=== PATIENT | female | born 1985 | race Two or more races ===

== ENCOUNTER 2023-10-16 19:18 | Inpatient (IN) | payer MEDICARE, MEDICAID, SELFPAY ==
[2023-10-16 20:06] VITALS: BP 123/69; PULSE 105; RESP 18; TEMP 36.2; O2SAT 97
[2023-10-16 22:12] LABS: MANUAL DIFF FLAG NO
[2023-10-16 22:13] LABS: Basophils Percent Auto 0.2 % (0-2); Eosinophils Percent Auto 0.2 % (0-4); Hematocrit 36.2 % (37.0-47.0); Hemoglobin 12.2 g/dl (12.0-16.0); Imm Gran Abs Auto 0.01 X10*3/uL (0.00-0.03); Imm Gran Pct Auto 0.2 % (0.0-0.4); Lymphocytes Percent Auto 41.5 % (20-40); Mean Corpuscular HGB Conc 33.7 g/dl (31.0-35.0); Mean Corpuscular Hemoglobin 28.1 pg (27.0-33.0); Mean Corpuscular Volume 83.4 fL (80.0-98.0); Mean Platelet Volume 9.5 fL (9.4-12.3); Monocytes Absolute Auto 0.5 X10*3/uL (0.1-1.2); Monocytes Percent Auto 9.6 % (2-11); Neutrophils Absolute Auto 2.3 x10*3/uL (2.0-8.3); Neutrophils Percent Auto 48.3 % (45-73); Platelet Count 227 X10*3/uL (160-400); Red Blood Count 4.34 X10*6/uL (4.20-5.50); White Blood Count 4.8 X10*3/uL (4.8-10.8)
[2023-10-16] MEDS: Docusate Sodium 100 MG CAPSULE PO (22:48)
[2023-10-16] MEDS: cloZAPine 25 MG TABLET 50 MG PO (22:48)
[2023-10-16] MEDS: cloZAPine 100 MG TABLET 200 MG PO (22:48)
[2023-10-16] MEDS: Calcium Carbonate 750 MG TAB.CHEW PO (22:48)
[2023-10-17 02:05] VITALS: BMI 33.1
--- NOTE | 2023-10-17 03:06 | PC.NURSE ---
Addendum entered by Janneth Buck RN 10/17/23 04:14: additional medical issues for admission note: asthma-well controlled, hypothyroidism. Original Note: ALLERGIES: prison confirms that they have a flagged allergy for patient for pork products but does take Thyroid Pork (STONE LAYER thyroid) 60 MG daily. last given by them on 10/15/23. clozaril 25 mg given daily at 1400 clozaril HS total dose 250 mg-last given by prison 10/14 and received on M3 10/15 clonazepam 1 mg is given daily at prison at 1700 daily. last given by prison on 10/14 and was given dose in [facility] ER 10/15 prior to arrival to . see completed medication reconciliation. Neurology-prison reports patient had a neurology appointment with neurologist 10/05 at [facility] unable to identify name of physician. sister-guardian, Griselda attended appointment with her and had been prescribed ''something for MS'' but unable to identify medication. reporting that medication had to be a special order. MS is a new diagnosis for patient. was hospitalized 09/18-09/23 r/o seizure d/o with final diagnosis of MS. contact at prison was Naomi. this is the first M3 admission for this 38 year old female. legal: CV. dx: schizoaffective d/o, bipolar d/o. patient has history of multiple hospitalizations including [facility]. nurse to nurse, collateral information obtained prior to admission. presnts with flat affect, depressed mood. reports ''not feeling right'' reports experiencing + ah with SI thinking. denies active plan or intent. no agitation or restlessness noted during assessment. was actively engaged with medication reconciliation including offering t/w her prison number and stating ''call them, they will know my medications because they were changed when I was in the hospital'' (referring to medical admission) patient had number memorized. no drug or alcohol use. treatment plan, safety tool initiated. skin check done on admission. does not want flu shot.
[2023-10-17 06:00] VITALS: BP 126/96; PULSE 110; RESP 16; TEMP 36.1; O2SAT 96
[2023-10-17] MEDS: Omeprazole 20 MG CAPSULE.DR PO (06:44)
--- NOTE | 2023-10-17 06:47 | PC.NURSE ---
is due for haldol dec. shot per halfway. [facility]NA came to halfway when patient was in ER. halfway requesting dec to be administered in the hospital.
[2023-10-17 07:49] LABS: Alanine Aminotransferase 14 U/L (0-31); Alkaline Phosphatase 75 U/L (39-117); Anion Gap 12 (12-20); Aspartate Amino Transferase 16 U/L (5-31); Bilirubin Total 0.3 mg/dL (0.0-1.0); Blood Urea Nitrogen 10 mg/dL (9-16); Calcium 9.2 mg/dL (8.4-10.2); Carbon Dioxide 25 mmol/L (22-29); Chloride 110 mmol/L (96-108); Cholesterol 211 mg/dL (<200); Creatinine Clr Calc Pharmacy 130.2; Estimated Glomerular Filt Rate > 60; Glucose Fasting 100 mg/dL (60-99); HDL Cholesterol 34 mg/dL (>40); LDL Cholesterol Calculated 129 mg/dL (<100); Potassium 3.9 mmol/L (3.3-5.1); Sodium 143 mmol/L (135-145); Total Protein 6.1 g/dL (6.5-8.0); Triglycerides 241 mg/dL (<150)
[2023-10-17 08:10] LABS: TSH reflex Free T4 1.84 uIU/mL (0.32-4.0)
[2023-10-17] MEDS: Thyroid,Pork 30 MG TABLET 60 MG PO (08:42)
[2023-10-17] MEDS: Multivitamin TABLET 1 TAB PO (08:42)
[2023-10-17] MEDS: Docusate Sodium 100 MG CAPSULE PO ×2 (08:42→22:19)
--- NOTE | 2023-10-17 10:31 | PC.NURSE ---
Spoke with Deysi at pt's . Deysi reports that haldol dec 100 MG IM was supposed to be administered on 10/14, but the medication was not available for [facility]NA nurse to administer. Pt was in ED on 10/15 when VNA returned. Deysi reported that last administration was not documented. She called her lead section supervisor who did not know the name of the VNA agency. Call placed to pt's sister/guardian Griselda enquiring about name/contact at [facility], awaiting call back.
--- NOTE | 2023-10-17 11:52 | P.HPPS_ITS ---
HPI Date of Service: 10/17/23 Chief Complaint: Anxiety Sources of Information: patient interviewed, chart reviewed and crisis/core team assessment reviewed HPI Subjective Notes: [place] Warning and Conditional Voluntary Narrative: Patient is a 38 year old female with hx of Schizoaffective d/o who presented to ER d/t suicidal ideation with no plan secondary to increased auditory hallucinations. Per crisis report, pt was hospitalized from September 18-September 23 secondary to seizure d/o and was eventually diagnosed with MS exacerbation. She was treated with steroids and discharged back to [facility]. During admission assessment, pt presents with flat affect, guarded and soft spoken. She is calm and cooperative. Pt reports feeling anxious and depressed ; pt stated, I came here because I'm suicidal and having voices. I dont know why I'm suicidal. Nothing happened. It started on 3pm on Wednesday. The voices are telling me to do things to kill myself. I'm trying to fight it . pt denies HI/VH/AH. She reports being medication compliant. Pt stated, I just want the voices and suicidal thoughts to go away. The whole situation is making me depressed and anxious . RN, Belen, verified pt is due for Haldol Decanoate 100mg IM; injection was due on 10/15/23, however pt was hospitalized at that time and did not receive injection. Per RN note, Spoke with on-call, Racheal, at [facility] - [phone]. Verified haldol deconate 100 MG IM [id number] was last administered on 10/01/23 and was due 10/15/23. Invega sustenna 234 MG IM Qmonth was last administered 10/04/23. Past Psychiatric History: [facility] hospitalization-2021 lives at [facility]. Therapist: [facility] Reviewed: Yes [facility] Medical History (Updated 10/17/23 @ 16:14 by Nadira Colon NP) Mild persistent asthma Multiple sclerosis HLD (hyperlipidemia) Family History: unknown Social History: lives in residential [facility] through [facility], single, sister, Griselda is legal guardian. Substance History: denies Trauma History: denies Diagnostics Vital Signs (24Hr): Vital Signs - 24 hr 10/16/23 20:06 10/17/23 06:00 Temperature 97.2 F 97.0 F Pulse Rate 105 H 110 H Respiratory Rate 18 16 Blood Pressure 123/69 126/96 H Pulse Oximetry 97 96 Oxygen Delivery Method Room Air Room Air BMI result Body Mass Index 33.1 Labs 10/16/23 22:08 10/17/23 07:11 Labs: Laboratory Results - last 48 hr 10/16/23 10/17/23 22:08 07:11 WBC 4.8 RBC 4.34 Hgb 12.2 Hct 36.2 L MCV 83.4 MCH 28.1 MCHC 33.7 RDW 13.0 Plt Count 227 MPV 9.5 Immature Gran % (Auto) 0.2 Neut % (Auto) 48.3 Lymph % (Auto) 41.[address] [place] % (Auto) 9.6 Eos % (Auto) 0.2 Baso % (Auto) 0.2 Lymph # (Auto) 2.0 [place] # (Auto) 0.5 Eos # (Auto) 0.0 Baso # (Auto) 0.0 Abs Immat Gran (auto) 0.01 Absolute Neuts (auto) 2.3 Absolute Nucleated RBC 0.000 Nucleated RBC % (auto) 0.0 Hold Purple Top SEE NOTE Sodium 143 Potassium 3.9 Chloride 110 H Carbon Dioxide 25 Anion Gap 12 BUN 10 Creatinine 0.66 Estim Creat Clear Calc 130.2 Estimated GFR > 60 Fasting Glucose 100 H Calcium 9.2 Total Bilirubin 0.3 AST 16 ALT 14 Alkaline Phosphatase 75 Total Protein 6.1 L Albumin 4.0 Triglycerides 241 H Cholesterol 211 H LDL Cholesterol, Calc 129 H HDL Cholesterol 34 L TSH 1.84 Meds/Allergies Meds Home Medications Medication Instructions Recorded Confirmed Type clonazepam 1 mg tablet 1 mg PO DAILY@1700 10/16/23 10/17/23 History clozapine 200 mg tablet 200 mg PO BEDTIME 10/16/23 10/16/23 History clozapine 25 mg tablet 25 mg PO DAILY@1400 10/16/23 10/17/23 History clozapine 50 mg tablet 50 mg PO BEDTIME 10/16/23 10/16/23 History docusate sodium 100 mg capsule 100 mg PO BID 10/16/23 10/16/23 History haloperidol decanoate 100 mg/mL 100 mg IM Q2W 10/16/23 10/16/23 History intramuscular solution ibuprofen 600 mg tablet 600 mg PO Q6H PRN pain 10/16/23 10/16/23 History multivitamin with folic acid 400 1 tab PO DAILY 10/16/23 10/16/23 History mcg tablet (Daily-Pratik (with folic acid)) paliperidone palmitate 234 mg/1.5 234 mg IM Q4W 10/16/23 10/16/23 History mL intramuscular syringe (Invega Sustenna) pantoprazole 40 mg tablet,delayed 40 mg PO DAILY 10/16/23 10/16/23 History release thyroid (pork) 60 mg tablet (FILER REPAIRER 60 mg PO DAILY 10/16/23 10/16/23 History Thyroid) albuterol sulfate 90 mcg/actuation 2 puff inhalation Q4H PRN wheezing 10/17/23 10/17/23 History aerosol inhaler loratadine 10 mg tablet 10 mg PO DAILY 10/17/23 10/17/23 History Allergies Allergies Allergy/AdvReac Type Severity Reaction Status Date / Time Pork/Porcine Containing Allergy Unknown RASH Unverified 04/11/20 19:06 Products [PORK/PORCINE CONTAINING PRODUCTS] citalopram Allergy Unknown Verified 10/17/23 02:24 trazodone Allergy Unknown Verified 10/17/23 02:24 ALPHA LIPOIC ACID Allergy Unknown Uncoded 10/17/23 02:24 FILER REPAIRER-3 THYROID TOXICITY Allergy Unknown Uncoded 10/17/23 02:24 Mental Status Exam Mental Status Exam Narrative: Pt is alert and oriented; behavior is cooperative, calm, guarded; dressed in hospital gown; mood is described as depressed and anxious ; poor eye contact; Speech is normal rate, soft spoken and not pressured; thought process is organized and goal directed; Thought content is on tx; denies HI/VH. Pt reports auditory hallucinations telling her to harm herself. Assessment & Plan Assessment & Plan (1) Schizoaffective disorder: Status: Acute Code(s): F25.9 - Schizoaffective disorder, unspecified Plan Patient is a 38 year old female with hx of Schizoaffective d/o who presented to ER d/t suicidal ideation with no plan secondary to increased auditory hallucinations. Plan: CV 15 minute safety checks continue home medications obtain collateral administer Haldol Decanoate 100mg IM, which was due on 10/14, RN, Belen, verified dose. See note. discharge planning encourage groups Patient educated on: diagnosis and medication risk/benefits Informed Consent: understands Reason for continued inpatient stay Substantial Risk for: harm to self and med/psych decompensation Statement Statement: I have reviewed the history and physical and performed a pertinent examination on my patient. No changes have occurred unless specified. If the History and Physical was not performed prior to admission, the Hospitalist's service will be consulted for completing the admission physical. Time Spent With Patient Time: Total time managing care of this patient today _60___ minutes.
--- NOTE | 2023-10-17 13:20 | HO.PM.IMCN ---
History of Present Illness Data of Consult Service Date: 10/17/23 Primary Care Provider: Unknown Physician HPI Reason for consult: Admission H&P Pt is a 38-year-old female with a PMH significant for?MS, mild persistent asthma, HLD, GERD, schizophrenia, and bipolar disorder who is admitted to M3 psychiatry unit for increasing depression with vague SI without plan. Medical consult for admission H&P. ?Patient reports she was diagnosed last month with MS after experiencing seizure-like activity. Has been to see a neurologist though has yet to fill any prescriptions. Reports she would plans to fill the prescription and start the medication once she is discharged from here. Currently patient denies any acute medical complaints. No SOB, GOMEZ. Denies chest pain/pressure, palpitations. No fever, chills, nausea, vomiting, diarrhea, abdominal pain. Labs reviewed, significant for elevated lipid panel, otherwise grossly unremarkable. Review of Systems Review of Systems: Patient has no acute medical complaints at this time [facility] Medical History (Updated 10/17/23 @ 14:40 by FREDY Rucker) Mild persistent asthma Multiple sclerosis HLD (hyperlipidemia) Social History Household Members: Other Housing: Other Housing Other:: [facility] 24 hour staffed fci Do you presently have visiting nurse or other home services: Yes Patient Tobacco Use Status: Never used Tobacco e-Cigarette/Vaping Use: Never Used Second Hand Smoke Exposure: No Use of substances other than those prescribed or required for medical reasons: No Currently Displaying Signs/Symptoms of Drug Intoxication Withdrawal: No Have you been hit, kicked, punched, or otherwise hurt by someone within the past year? If so, by whom?: No Do you feel safe in your current relationship?: No Current Relationship Is there a partner from a previous relationship who is making you feel unsafe now?: No Are you made to feel afraid or neglected: No Spiritual Healthcare Practices: requested bible-given Advance Directives: No Advance Directives Information Provided: No Do you have thoughts of harming others: None Do you have a plan to hurt others: No Plan Recently lost weight without trying: No How much weight loss: Not applicable Eating poorly because of decreased appetite: No Nutrition screen score: 0 Nutrition Risks: No Nutritional Risk Patient : No : No Poor oral hygiene: No Meds Allergies Allergy/AdvReac Type Severity Reaction Status Date / Time Pork/Porcine Containing Allergy Unknown RASH Unverified 04/11/20 19:06 Products [PORK/PORCINE CONTAINING PRODUCTS] citalopram Allergy Unknown Verified 10/17/23 02:24 trazodone Allergy Unknown Verified 10/17/23 02:24 ALPHA LIPOIC ACID Allergy Unknown Uncoded 10/17/23 02:24 [employer]-3 THYROID TOXICITY Allergy Unknown Uncoded 10/17/23 02:24 Active Medications: Current Medications Acetaminophen (Acetaminophen 325 Mg Tablet) 650 mg PO Q6H PRN PRN Reason: Headache/Pain Mild Scale (1-3) Al Hydroxide/Mg Hydroxide (Magnesium Hydrox/Alum Hydrox 30 Ml Oral.Susp) 30 ml PO Q6H PRN PRN Reason: Heartburn/Nausea Calcium Carbonate (Calcium Carbonate 750 Mg Tab.Chew) 750 mg PO Q4H PRN PRN Reason: Heartburn Last Admin: 10/16/23 22:48 Dose: 750 mg Clonazepam (Clonazepam 1 Mg Tablet) 1 mg PO BID PRN PRN Reason: anxiety/restlessness Clozapine (Clozapine 25 Mg Tablet) 50 mg PO BEDTIME [facility] Last Admin: 10/16/23 22:48 Dose: 50 mg Clozapine (Clozapine 100 Mg Tablet) 200 mg PO BEDTIME [facility] Last Admin: 10/16/23 22:48 Dose: 200 mg Clozapine (Clozapine 25 Mg Tablet) 25 mg PO DAILY@1400 LEW Docusate Sodium (Docusate Sodium 100 Mg Capsule) 100 mg PO BID [facility] Last Admin: 10/17/23 08:42 Dose: 100 mg Hydroxyzine HCl (Hydroxyzine Hcl 25 Mg Tablet) 25 mg PO Q6H PRN PRN Reason: Anxiety Ibuprofen (Ibuprofen 600 Mg Tablet) 600 mg PO Q6H PRN PRN Reason: MILD TO MODERATE PAIN Magnesium Hydroxide (Milk Of Magnesia 30 Ml Oral.Susp) 30 ml PO DAILY PRN PRN Reason: Constipation Multivitamins/Vitamin C (Multivitamin Tablet) 1 tab PO DAILY [facility] Last Admin: 10/17/23 08:42 Dose: 1 tab Omeprazole (Omeprazole 20 Mg Capsule.Dr) 20 mg PO DAILY@0630 [facility] Last Admin: 10/17/23 06:44 Dose: 20 mg Thyroid (Thyroid,Pork 30 Mg Tablet) 60 mg PO DAILY [facility] Last Admin: 10/17/23 08:42 Dose: 60 mg Home Medications Medication Instructions Recorded Confirmed Last Taken Type clonazepam 1 mg tablet 1 mg PO DAILY@1700 10/16/23 10/17/23 10/16/23 History clozapine 200 mg tablet 200 mg PO BEDTIME 10/16/23 10/16/23 10/15/23 21:00 History clozapine 25 mg tablet 25 mg PO DAILY@1400 10/16/23 10/17/23 10/15/23 14:00 History clozapine 50 mg tablet 50 mg PO BEDTIME 10/16/23 10/16/23 10/15/23 21:00 History docusate sodium 100 mg capsule 100 mg PO BID 10/16/23 10/16/23 10/16/23 History haloperidol decanoate 100 mg/mL 100 mg IM Q2W 10/16/23 10/16/23 Unknown History intramuscular solution ibuprofen 600 mg tablet 600 mg PO Q6H PRN pain 10/16/23 10/16/23 Unknown History multivitamin with folic acid 400 1 tab PO DAILY 10/16/23 10/16/23 10/15/23 08:00 History mcg tablet (Daily-Pratik (with folic acid)) paliperidone palmitate 234 mg/1.5 234 mg IM Q4W 10/16/23 10/16/23 Unknown History mL intramuscular syringe (Invega Sustenna) pantoprazole 40 mg tablet,delayed 40 mg PO DAILY 10/16/23 10/16/23 10/15/23 08:00 History release thyroid (pork) 60 mg tablet ([employer] 60 mg PO DAILY 10/16/23 10/16/23 10/15/23 08:00 History Thyroid) albuterol sulfate 90 mcg/actuation 2 puff inhalation Q4H PRN wheezing 10/17/23 10/17/23 Unknown History aerosol inhaler loratadine 10 mg tablet 10 mg PO DAILY 10/17/23 10/17/23 10/16/23 History Physical Exam Vital Signs and Narrative: Vital Signs: Last Vital Signs Temp 97.0 F 10/17/23 06:00 Pulse 110 H 10/17/23 06:00 Resp 16 10/17/23 06:00 BP 126/96 H 10/17/23 06:00 Pulse Ox 96 10/17/23 06:00 O2 Del Method Room Air 10/17/23 06:00 BMI result Body Mass Index 33.1 General: AOx3, no acute distress Resp: CTA bilaterally CVS: S1, S2, RRR GI: +BS, NT, no distention Skin: Warm, dry Neuro: Cranial nerves II-XII grossly intact bilaterally. Motor grossly intact bilaterally Extremities: No edema Psych: Flat affect Results Labs 10/16/23 22:08 10/17/23 07:11 Labs: Laboratory Results - last 24 hr 10/16/23 10/17/23 22:08 07:11 MCV 83.4 MCH 28.1 MCHC 33.7 RDW 13.0 Plt Count 227 MPV 9.5 Immature Gran % (Auto) 0.2 Neut % (Auto) 48.3 Lymph % (Auto) 41.5 H [place] % (Auto) 9.6 Eos % (Auto) 0.2 Baso % (Auto) 0.2 Lymph # (Auto) 2.0 [place] # (Auto) 0.5 Eos # (Auto) 0.0 Baso # (Auto) 0.0 Abs Immat Gran (auto) 0.01 Absolute Neuts (auto) 2.3 Absolute Nucleated RBC 0.000 Nucleated RBC % (auto) 0.0 Hold Purple Top SEE NOTE Anion Gap 12 Estim Creat Clear Calc 130.2 Estimated GFR > 60 Fasting Glucose 100 H Calcium 9.2 Total Bilirubin 0.3 AST 16 ALT 14 Alkaline Phosphatase 75 Total Protein 6.1 L Albumin 4.0 Triglycerides 241 H Cholesterol 211 H LDL Cholesterol, Calc 129 H HDL Cholesterol 34 L TSH 1.84 Assessment and Plan (1) Medical clearance for psychiatric admission: Status: Acute Plan Pt is a 38-year-old female with a PMH significant for?MS, mild persistent asthma, HLD, GERD, schizophrenia, and bipolar disorder who is admitted to M3 psychiatry unit for increasing depression with vague SI without plan. Medical consult for admission H&P. Mood disorder Plan as per Psychiatry Multiple sclerosis Recently diagnosed last month Has not yet filled new prescription Follow-up outpatient with Neurology Moderate persistent asthma Not in acute exacerbation Continue home inhalers GERD Continue PPI Thank you for allowing us to participate in the care of this patient. Signing off at this time. Please re-consult if any acute complaints or issues arise.
[2023-10-17] MEDS: cloZAPine 25 MG TABLET PO (13:54)
--- NOTE | 2023-10-17 15:43 | PC.NURSE ---
Spoke with on-call, Racheal at [facility] - [phone]. Verified haldol deconate 100 MG IM S2sshon was last administered on 10/01/23 and was due 10/15/23. Invega sustenna 234 MG IM Qmonth was last administered 10/04/23. Order for haldol deconate obtained from Nadira Martinez NP
[2023-10-17] MEDS: Haloperidol Decanoate 50 MG/ML VIAL 100 MG IM (16:01)
[2023-10-17 22:01] VITALS: BP 110/69; PULSE 92; RESP 16; TEMP 36.4; O2SAT 96
[2023-10-17] MEDS: cloZAPine 25 MG TABLET 50 MG PO (22:19)
[2023-10-17] MEDS: cloZAPine 100 MG TABLET 200 MG PO (22:19)
[2023-10-18] MEDS: Omeprazole 20 MG CAPSULE.DR PO (06:34)
[2023-10-18 09:26] VITALS: BP 109/59; PULSE 107; RESP 18; TEMP 36.4; O2SAT 96
[2023-10-18] MEDS: Docusate Sodium 100 MG CAPSULE PO ×2 (09:29→20:48)
[2023-10-18] MEDS: Multivitamin TABLET 1 TAB PO (09:29)
[2023-10-18] MEDS: Thyroid,Pork 30 MG TABLET 60 MG PO (09:30)
[2023-10-18] MEDS: cloZAPine 25 MG TABLET PO (12:58)
--- NOTE | 2023-10-18 16:12 | HO.PSYCHPN ---
Subjective Subjective Date of Service: 10/18/23 Reason For Visit: Anxiety Interim History: found kneeling on the floor of her room praying. amenable to interview, calm, cooperative, pleasant. reports her AH and SI have resolved since she received the haldol decanoate dose yesterday. she feels well otherwise and is open to returning to her long term sometime later this week. per staff, +AH. [place], recent MS Dx. on cloz, haldol, invega[facility] Mental Status Exam Mental Status Exam Narrative: Pt is alert and oriented; behavior is cooperative, calm, guarded; dressed in hospital gown; good eye contact; Speech is normal rate, soft spoken and not pressured; thought process is organized and goal directed; Thought content is on tx; denies SI/SIBI/AH. Diagnostics Vital Signs (24Hr): Vital Signs - 24 hr 10/17/23 22:01 10/18/23 09:26 Temperature 97.5 F 97.5 F Pulse Rate 92 107 H Respiratory Rate 16 18 Blood Pressure 110/69 109/59 L Pulse Oximetry 96 96 Oxygen Delivery Method Room Air Room Air BMI result Body Mass Index 33.1 Labs 10/16/23 22:08 10/17/23 07:11 Labs: Laboratory Results - last 48 hr 10/16/23 10/17/23 22:08 07:11 WBC 4.8 RBC 4.34 Hgb 12.2 Hct 36.2 L MCV 83.4 MCH 28.1 MCHC 33.7 RDW 13.0 Plt Count 227 MPV 9.5 Immature Gran % (Auto) 0.2 Neut % (Auto) 48.3 Lymph % (Auto) 41.5 H [place] % (Auto) 9.6 Eos % (Auto) 0.2 Baso % (Auto) 0.2 Lymph # (Auto) 2.0 [place] # (Auto) 0.5 Eos # (Auto) 0.0 Baso # (Auto) 0.0 Abs Immat Gran (auto) 0.01 Absolute Neuts (auto) 2.3 Absolute Nucleated RBC 0.000 Nucleated RBC % (auto) 0.0 Hold Purple Top SEE NOTE Sodium 143 Potassium 3.9 Chloride 110 H Carbon Dioxide 25 Anion Gap 12 BUN 10 Creatinine 0.66 Estim Creat Clear Calc 130.2 Estimated GFR > 60 Fasting Glucose 100 H Calcium 9.2 Total Bilirubin 0.3 AST 16 ALT 14 Alkaline Phosphatase 75 Total Protein 6.1 L Albumin 4.0 Triglycerides 241 H Cholesterol 211 H LDL Cholesterol, Calc 129 H HDL Cholesterol 34 L TSH 1.84 Medications Medications Current Medications Acetaminophen (Acetaminophen 325 Mg Tablet) 650 mg PO Q6H PRN PRN Reason: Headache/Pain Mild Scale (1-3) Al Hydroxide/Mg Hydroxide (Magnesium Hydrox/Alum Hydrox 30 Ml Oral.Susp) 30 ml PO Q6H PRN PRN Reason: Heartburn/Nausea Calcium Carbonate (Calcium Carbonate 750 Mg Tab.Chew) 750 mg PO Q4H PRN PRN Reason: Heartburn Last Admin: 10/16/23 22:48 Dose: 750 mg Clonazepam (Clonazepam 1 Mg Tablet) 1 mg PO BID PRN PRN Reason: anxiety/restlessness Clozapine (Clozapine 25 Mg Tablet) 50 mg PO BEDTIME [facility] Last Admin: 10/17/23 22:19 Dose: 50 mg Clozapine (Clozapine 100 Mg Tablet) 200 mg PO BEDTIME [facility] Last Admin: 10/17/23 22:19 Dose: 200 mg Clozapine (Clozapine 25 Mg Tablet) 25 mg PO DAILY@1400 [facility] Last Admin: 10/18/23 12:58 Dose: 25 mg Docusate Sodium (Docusate Sodium 100 Mg Capsule) 100 mg PO BID [facility] Last Admin: 10/18/23 09:29 Dose: 100 mg Hydroxyzine HCl (Hydroxyzine Hcl 25 Mg Tablet) 25 mg PO Q6H PRN PRN Reason: Anxiety Ibuprofen (Ibuprofen 600 Mg Tablet) 600 mg PO Q6H PRN PRN Reason: MILD TO MODERATE PAIN Magnesium Hydroxide (Milk Of Magnesia 30 Ml Oral.Susp) 30 ml PO DAILY PRN PRN Reason: Constipation Multivitamins/Vitamin C (Multivitamin Tablet) 1 tab PO DAILY [facility] Last Admin: 10/18/23 09:29 Dose: 1 tab Omeprazole (Omeprazole 20 Mg Capsule.Dr) 20 mg PO DAILY@0630 [facility] Last Admin: 10/18/23 06:34 Dose: 20 mg Thyroid (Thyroid,Pork 30 Mg Tablet) 60 mg PO DAILY [facility] Last Admin: 10/18/23 09:30 Dose: 60 mg Allergies Allergies Allergy/AdvReac Type Severity Reaction Status Date / Time Pork/Porcine Containing Allergy Unknown RASH Unverified 04/11/20 19:06 Products [PORK/PORCINE CONTAINING PRODUCTS] citalopram Allergy Unknown Verified 10/17/23 02:24 trazodone Allergy Unknown Verified 10/17/23 02:24 ALPHA LIPOIC ACID Allergy Unknown Uncoded 10/17/23 02:24 INDEPENDENT VIDEO PRODUCER-3 THYROID TOXICITY Allergy Unknown Uncoded 10/17/23 02:24 Assessment & Plan Assessment & Plan (1) Schizoaffective disorder: Status: Acute Code(s): F25.9 - Schizoaffective disorder, unspecified Plan Patient is a 38 year old female with hx of Schizoaffective d/o who presented to ER d/t suicidal ideation with no plan secondary to increased auditory hallucinations. Plan: CV 15 minute safety checks continue home medications obtain collateral administer Haldol Decanoate 100mg IM, which was due on 10/14, RN, Belen, verified dose. See note. discharge planning encourage groups 10/17: reports SI and AH have resolved since getting haldol dec shot. amenable to observation for several days for stability and discharge to long term later this week. Reason for continued inpatient stay Substantial Risk for: harm to self, inability to function and rapid decompensation Time Spent With Patient Time: Total time managing care of this patient today __25__ minutes.
[2023-10-18 16:22] LABS: Glucose, Whole Blood 144 mg/dL (60-115)
[2023-10-18] MEDS: LORazepam 1 MG TABLET 2 MG PO (16:28)
--- NOTE | 2023-10-18 16:37 | PC.NURSE ---
Pt reported crushing chest pain on the right side, sweating, shaking in shower room. Vitals 141/73, 64 pulse, 20 respirations, 97.0 F. Pt denied SOB. Reports not eating or drinking since 1300, BS 144. Gregory Sanders MD made aware, ordered 2 mg Ativan PO. Pt also reported frequency of urination during the day and nocturia / incontinence during the night. UA CC w/ reflex ordered, specimen not yet obtained.
[2023-10-18 18:00] VITALS: BP 144/76; PULSE 125; RESP 18; TEMP 36.6; O2SAT 98
[2023-10-18 18:08] LABS: Appearance Urine Clear; Color Urine Dark Yellow; Glucose Urine UA Negative (Negative); Leukocyte Esterase Urine Negative (Negative); Nitrite Urine Negative (Negative); PH 6.5 (5.0-9.0); Urine Blood Negative (Negative); Urine Ketones Trace mg/dL (Negative); Urine Protein Negative (Neg-Trace)
--- NOTE | 2023-10-18 18:31 | ECG_ITS ---
Test Reason : chest pain Blood Pressure : / mmHG Vent. Rate : 124 BPM Atrial Rate : 124 BPM P-R Int : 118 ms QRS Dur : 072 ms QT Int : 300 ms P-R-T Axes : 058 055 043 degrees QTc Int : 431 ms Sinus tachycardia Otherwise normal ECG When compared with ECG of 28-JAN-2016 20:10, No significant change was found Referred By: Kristin Tijerina Electronically Signed By:Sven Cabrera
--- NOTE | 2023-10-18 19:18 | PC.NURSE ---
Rida reported L sided chest pain, Kristin Bui CREATIVE RECRUITER made aware, EKG ordered and done. Pt urine collected and showed trace ketones, Kristin Bui CREATIVE RECRUITER made aware. No further suggestions made at this time
[2023-10-18] MEDS: cloZAPine 100 MG TABLET 200 MG PO (20:47)
[2023-10-18] MEDS: cloZAPine 25 MG TABLET 50 MG PO (20:48)
[2023-10-18] MEDS: clonazePAM 1 MG TABLET PO (20:48)
[2023-10-18 21:43] VITALS: PULSE 108
--- NOTE | 2023-10-19 07:37 | PC.NURSE ---
Paul is noted to be very anxious regarding a new medication that has apparently been prescribed by her Neurologist Dr Doran. This junior copywriter spoke with the patients sister Alanna Castro, who is Paul's legal guardian, at Paul's request. Alanna Castro confirmed that Paul has been prescribed a new medication and that Dr. Hooks office received prior authorization on 10/14/23. Additionally she stated that the medication will have to be obtained from the specialty pharmacy . Verbal consent to speak with Dr. Doran given by Alanna Castro.
[2023-10-19 09:30] VITALS: BP 118/60; PULSE 112; RESP 18; TEMP 36.3; O2SAT 98
[2023-10-19] MEDS: Thyroid,Pork 30 MG TABLET 60 MG PO (09:54)
[2023-10-19] MEDS: Multivitamin TABLET 1 TAB PO (09:54)
[2023-10-19] MEDS: Docusate Sodium 100 MG CAPSULE PO ×2 (09:55→20:37)
[2023-10-19] MEDS: Omeprazole 20 MG CAPSULE.DR PO (09:55)
[2023-10-19] MEDS: cloZAPine 25 MG TABLET PO (15:36)
--- NOTE | 2023-10-19 15:50 | HO.PSYCHPN ---
Subjective Subjective Date of Service: 10/19/23 Reason For Visit: Anxiety Interim History: calm, cooperative. fixated on belief she has an appointment with her prescriber on , which she must leave the hospital to attend. reassured her that if that were the case, we would get her out in time for appointment. otherwise states no AH/SI. per staff, has guardian, no issues. Mental Status Exam Mental Status Exam Narrative: Pt is alert and oriented; behavior is cooperative, calm, guarded; dressed in hospital gown; good eye contact; Speech is normal rate, soft spoken and not pressured; thought process is organized and goal directed; Thought content is on tx; denies SI/SIBI/AH. Diagnostics Vital Signs (24Hr): Vital Signs - 24 hr 10/18/23 18:00 10/18/23 21:43 10/19/23 09:30 Temperature 97.8 F 97.3 F Pulse Rate 125 H 108 H 112 H Respiratory Rate 18 18 Blood Pressure 144/76 H 118/60 Pulse Oximetry 98 98 Oxygen Delivery Method Room Air Room Air BMI result Body Mass Index 33.1 Labs 10/16/23 22:08 10/17/23 07:11 Labs: Laboratory Results - last 48 hr 10/18/23 10/18/23 16:13 17:47 POC Glucose 144 H Urine Color Dark Yellow Urine Appearance Clear Urine pH 6.5 Ur Specific [place] 1.020 Urine Protein Negative Urine Glucose (UA) Negative Urine Ketones Trace Urine Blood Negative Urine Nitrite Negative Ur Leukocyte Esterase Negative Medications Medications Current Medications Acetaminophen (Acetaminophen 325 Mg Tablet) 650 mg PO Q6H PRN PRN Reason: Headache/Pain Mild Scale (1-3) Al Hydroxide/Mg Hydroxide (Magnesium Hydrox/Alum Hydrox 30 Ml Oral.Susp) 30 ml PO Q6H PRN PRN Reason: Heartburn/Nausea Calcium Carbonate (Calcium Carbonate 750 Mg Tab.Chew) 750 mg PO Q4H PRN PRN Reason: Heartburn Last Admin: 10/16/23 22:48 Dose: 750 mg Clonazepam (Clonazepam 1 Mg Tablet) 1 mg PO BID PRN PRN Reason: anxiety/restlessness Last Admin: 10/18/23 20:48 Dose: 1 mg Clozapine (Clozapine 25 Mg Tablet) 50 mg PO BEDTIME [facility] Last Admin: 10/18/23 20:48 Dose: 50 mg Clozapine (Clozapine 100 Mg Tablet) 200 mg PO BEDTIME [facility] Last Admin: 10/18/23 20:47 Dose: 200 mg Clozapine (Clozapine 25 Mg Tablet) 25 mg PO DAILY@1400 [facility] Last Admin: 10/19/23 15:36 Dose: 25 mg Docusate Sodium (Docusate Sodium 100 Mg Capsule) 100 mg PO BID [facility] Last Admin: 10/19/23 09:55 Dose: 100 mg Hydroxyzine HCl (Hydroxyzine Hcl 25 Mg Tablet) 25 mg PO Q6H PRN PRN Reason: Anxiety Ibuprofen (Ibuprofen 600 Mg Tablet) 600 mg PO Q6H PRN PRN Reason: MILD TO MODERATE PAIN Magnesium Hydroxide (Milk Of Magnesia 30 Ml Oral.Susp) 30 ml PO DAILY PRN PRN Reason: Constipation Multivitamins/Vitamin C (Multivitamin Tablet) 1 tab PO DAILY [facility] Last Admin: 10/19/23 09:54 Dose: 1 tab Omeprazole (Omeprazole 20 Mg Capsule.Dr) 20 mg PO DAILY@0630 [facility] Last Admin: 10/19/23 09:55 Dose: 20 mg Thyroid (Thyroid,Pork 30 Mg Tablet) 60 mg PO DAILY [facility] Last Admin: 10/19/23 09:54 Dose: 60 mg Allergies Allergies Allergy/AdvReac Type Severity Reaction Status Date / Time Pork/Porcine Containing Allergy Unknown RASH Unverified 04/11/20 19:06 Products [PORK/PORCINE CONTAINING PRODUCTS] citalopram Allergy Unknown Verified 10/17/23 02:24 trazodone Allergy Unknown Verified 10/17/23 02:24 ALPHA LIPOIC ACID Allergy Unknown Uncoded 10/17/23 02:24 ASSISTANT OPERATIONS MANAGER-3 THYROID TOXICITY Allergy Unknown Uncoded 10/17/23 02:24 Assessment & Plan Assessment & Plan (1) Schizoaffective disorder: Status: Acute Code(s): F25.9 - Schizoaffective disorder, unspecified Plan Patient is a 38 year old female with hx of Schizoaffective d/o who presented to ER d/t suicidal ideation with no plan secondary to increased auditory hallucinations. Plan: CV 15 minute safety checks continue home medications obtain collateral administer Haldol Decanoate 100mg IM, which was due on 10/14, RN, Belen, verified dose. See note. discharge planning encourage groups 10/17: reports SI and AH have resolved since getting haldol dec shot. amenable to observation for several days for stability and discharge to alf later this week. 10/18: AH and SI remain resolved. planning for DC . pt does NOT have katarzyna appointment on . alf staff will be coming to pick her up. Reason for continued inpatient stay Substantial Risk for: harm to self, inability to function and rapid decompensation Time Spent With Patient Time: Total time managing care of this patient today __25__ minutes.
[2023-10-19 20:30] VITALS: BP 114/69; PULSE 124; RESP 20; TEMP 36.6; O2SAT 98
[2023-10-19] MEDS: cloZAPine 100 MG TABLET 200 MG PO (20:36)
[2023-10-19] MEDS: cloZAPine 25 MG TABLET 50 MG PO (20:36)
[2023-10-19] MEDS: clonazePAM 1 MG TABLET PO (20:37)
--- NOTE | 2023-10-19 20:44 | PC.NURSE ---
Rida given Klonopin PO prn for moderate anxiety
[2023-10-20] MEDS: Omeprazole 20 MG CAPSULE.DR PO (06:40)
[2023-10-20 07:34] VITALS: BP 119/66; PULSE 101; RESP 16; TEMP 36.3; O2SAT 98
[2023-10-20] MEDS: Multivitamin TABLET 1 TAB PO (09:09)
[2023-10-20] MEDS: Docusate Sodium 100 MG CAPSULE PO ×2 (09:09→21:24)
[2023-10-20] MEDS: Thyroid,Pork 30 MG TABLET 60 MG PO (09:09)
--- NOTE | 2023-10-20 10:07 | P.DS_ITS ---
DS: Providers Provider Date of Service: 10/20/23 Date of admission: 10/16/23 19:18 Primary care physician: Unknown Physician Consults: 10/16/23 21:47 Consult to Hospitalist Routine Comment: Consulting Provider: Hospitalist Reason For Exam: adm physical recent ms dx DS: Diagnosis Discharge Diagnosis (1) Schizoaffective disorder: Status: Acute DS: Medications Discharge Medications Home Medications: Home Medications Medication Instructions Recorded Confirmed clonazepam 1 mg tablet 1 mg PO DAILY@1700 10/16/23 10/17/23 clozapine 200 mg tablet 200 mg PO BEDTIME 10/16/23 10/16/23 clozapine 25 mg tablet 25 mg PO DAILY@1400 10/16/23 10/17/23 clozapine 50 mg tablet 50 mg PO BEDTIME 10/16/23 10/16/23 docusate sodium 100 mg capsule 100 mg PO BID 10/16/23 10/16/23 haloperidol decanoate 100 mg/mL 100 mg IM Q2W 10/16/23 10/16/23 intramuscular solution ibuprofen 600 mg tablet 600 mg PO Q6H PRN pain 10/16/23 10/16/23 multivitamin with folic acid 400 1 tab PO DAILY 10/16/23 10/16/23 mcg tablet (Daily-Pratik (with folic acid)) paliperidone palmitate 234 mg/1.5 234 mg IM Q4W 10/16/23 10/16/23 mL intramuscular syringe (Invega Sustenna) pantoprazole 40 mg tablet,delayed 40 mg PO DAILY 10/16/23 10/16/23 release thyroid (pork) 60 mg tablet (FACTORY SUPERINTENDENT 60 mg PO DAILY 10/16/23 10/16/23 Thyroid) albuterol sulfate 90 mcg/actuation 2 puff inhalation Q4H PRN wheezing 10/17/23 10/17/23 aerosol inhaler loratadine 10 mg tablet 10 mg PO DAILY 10/17/23 10/17/23 Mental Status Exam Mental Status Exam Narrative: Pt is alert and oriented; behavior is cooperative, calm, guarded; reduced arm swing, appears stiff; dressed in hospital gown; good eye contact; Speech is decr rate, soft spoken, decr amount; thought process is organized and goal directed; Thought content is on tx; denies SI/SIBI/AH. Data Data Completed and Pending Completed studies during hospitalization [Text1]: 10/16/23 10/17/23 10/17/23 22:08 07:11 18:05 WBC 4.8 RBC 4.34 Hgb 12.2 Hct 36.2 L MCV 83.4 MCH 28.1 MCHC 33.7 RDW 13.0 Plt Count 227 MPV 9.5 Immature Gran % (Auto) 0.2 Neut % (Auto) 48.3 Lymph % (Auto) 41.5 H [place] % (Auto) 9.6 Eos % (Auto) 0.2 Baso % (Auto) 0.2 Lymph # (Auto) 2.0 [place] # (Auto) 0.5 Eos # (Auto) 0.0 Baso # (Auto) 0.0 Abs Immat Gran (auto) 0.01 Absolute Neuts (auto) 2.3 Absolute Nucleated RBC 0.000 Nucleated RBC % (auto) 0.0 Hold Purple Top SEE NOTE Sodium 143 Potassium 3.9 Chloride 110 H Carbon Dioxide 25 Anion Gap 12 BUN 10 Creatinine 0.66 Estim Creat Clear Calc 130.2 Estimated GFR > 60 POC Glucose Fasting Glucose 100 H Calcium 9.2 Total Bilirubin 0.3 AST 16 ALT 14 Alkaline Phosphatase 75 Total Protein 6.1 L Albumin 4.0 Triglycerides 241 H Cholesterol 211 H LDL Cholesterol, Calc 129 H HDL Cholesterol 34 L TSH 1.84 Urine Color Urine Appearance Urine pH Ur Specific [place] Urine Protein Urine Glucose (UA) Urine Ketones Urine Blood Urine Nitrite Ur Leukocyte Esterase Clozapine Pending Norclozapine Pending 10/18/23 10/18/23 16:13 17:47 WBC RBC Hgb Hct MCV MCH MCHC RDW Plt Count MPV Immature Gran % (Auto) Neut % (Auto) Lymph % (Auto) [place] % (Auto) Eos % (Auto) Baso % (Auto) Lymph # (Auto) [place] # (Auto) Eos # (Auto) Baso # (Auto) Abs Immat Gran (auto) Absolute Neuts (auto) Absolute Nucleated RBC Nucleated RBC % (auto) Hold Purple Top Sodium Potassium Chloride Carbon Dioxide Anion Gap BUN Creatinine Estim Creat Clear Calc Estimated GFR POC Glucose 144 H Fasting Glucose Calcium Total Bilirubin AST ALT Alkaline Phosphatase Total Protein Albumin Triglycerides Cholesterol LDL Cholesterol, Calc HDL Cholesterol TSH Urine Color Dark Yellow Urine Appearance Clear Urine pH 6.5 Ur Specific [place] 1.020 Urine Protein Negative Urine Glucose (UA) Negative Urine Ketones Trace Urine Blood Negative Urine Nitrite Negative Ur Leukocyte Esterase Negative Clozapine Norclozapine DS: Summary Hospital Course Hospital Course: per 10/16 admission note: Patient is a 38 year old female with hx of Schizoaffective d/o who presented to ER d/t suicidal ideation with no plan secondary to increased auditory hallucinations. Per crisis report, pt was hospitalized from September 18-September 23 secondary to seizure d/o and was eventually diagnosed with MS exacerbation. She was treated with steroids and discharged back to residential. During admission assessment, pt presents with flat affect, guarded and soft spoken. She is calm and cooperative. Pt reports feeling anxious and depressed ; pt stated, I came here because I'm suicidal and having voices. I dont know why I'm suicidal. Nothing happened. It started on 3pm on Wednesday. The voices are telling me to do things to kill myself. I'm trying to fight it . pt denies HI/VH/AH. She reports being medication compliant. Pt stated, I just want the voices and suicidal thoughts to go away. The whole situation is making me depressed and anxious . RNBelen, verified pt is due for Haldol Decanoate 100mg IM; injection was due on 10/15/23, however pt was hospitalized at that time and did not receive injection. Per RN note, Spoke with on-call, Racheal, at [facility] - [phone]. Verified haldol deconate 100 MG IM [id number] was last administered on 10/01/23 and was due 10/15/23. Invega sustenna 234 MG IM Qmonth was last administered 10/04/23. Past Psychiatric History: [facility] hospitalization-2021 lives at [facility] connected residential. Therapist: [facility] Reviewed: Yes [facility], [facility] Medical History (Updated 10/17/23 @ 16:14 by Nadira Colon NP) Mild persistent asthma Multiple sclerosis HLD (hyperlipidemia) Family History: unknown Social History: lives in residential residential through [facility], single, sister, Griselda is legal guardian. Substance History: denies Trauma History: denies Precis: Patient is a 38 year old female with hx of Schizoaffective d/o who presented to ER d/t suicidal ideation with no plan secondary to increased auditory hallucinations. 10/16: CV. 15 minute safety checks. continue home medications. obtain collateral. administer Haldol Decanoate 100mg IM, which was due on 10/14, RN, Belen, verified dose. See note. discharge planning. encourage groups 10/17: reports SI and AH have resolved since getting haldol dec shot. amenable to observation for several days for stability and discharge to residential later this week. 10/18: AH and SI remain resolved. planning for DC . pt does NOT have katarzyna appointment on . residential staff will be coming to pick her up. 10/19: reduced arm swing, appears stiff. stable, denies AH or SI. meds reviewed and reconciled. D/C to residential tomorrow. 10/20: stable. discharged as per plan. Time Spent with Patient Time attestation: Total time managing care of this patient today _35___ minutes. Discharge Plan Discharge Anticipated Discharge Date/Time: 10/21/23 11:00 Patient Disposition: Home, Self-Care Discharge Diagnosis: Schizoaffective Disorder Referrals: Caroline Toribio (Therapy) [Other] - 11/11/23 10:00 am (TELEHEALTH APPOINTMENT) Dr. Soy Pandya (Psychiatry) [Other] - 10/28/23 10:20 am (IN OFFICE APPOINTMENT) Cady Crawford MD [Physician] - 1 Week (Patient has a physical on 10/22/23 @ 11:15am. At that time she will be given an appointment for hospital follow up. ) Discharge Medications: Continued haloperidol decanoate 100 mg/mL solution 100 mg IM Q2W Patient Comments: patient was due for injection 10/16/23-not administered as patient was at [facility] ER-per residential clonazepam 1 mg tablet 1 mg PO DAILY@1700 Patient Comments: given in ER at [facility] prior to [facility] admission-residential gives as scheduled medication at 1700 pantoprazole 40 mg tablet,delayed release (/EC) 40 mg PO DAILY Patient Comments: per residential docusate sodium 100 mg capsule 100 mg PO BID Patient Comments: given at [facility] ER prior to [facility] admission clozapine 25 mg tablet 25 mg PO DAILY@1400 Patient Comments: confirmed by residential Rx Instructions: takes at 1400 daily thyroid (pork) [FACTORY SUPERINTENDENT Thyroid] 60 mg tablet 60 mg PO DAILY Patient Comments: per residential multivitamin with folic acid [Daily-Pratik (with folic acid)] 400 mcg tablet 1 tab PO DAILY Patient Comments: per residential ibuprofen 600 mg tablet 600 mg PO Q6H PRN (Reason: pain) Patient Comments: on SEP at residential. uknown when last taken clozapine 50 mg tablet 50 mg PO BEDTIME Patient Comments: confirmed by residential clozapine 200 mg tablet 200 mg PO BEDTIME Patient Comments: confirmed by residential Invega Sustenna 234 mg/1.5 mL syringe 234 mg IM Q4W Patient Comments: due monthly. residential unable to verify when last dose taken. patient reports she receives 2 weeks after haldol dec. injection albuterol sulfate 90 mcg/actuation HFA aerosol inhaler 2 puff inhalation Q4H PRN (Reason: wheezing) Patient Comments: residential reports that patientt does not use often loratadine 10 mg tablet 10 mg PO DAILY Patient Comments: given in [facility] ER prior to [facility] admission Discharge Orders: Discharge Order (Routine); Ordered 10/21/23 Ordered By: Gregory Sanders Diet: Advance to usual diet Activity on Discharge: As tolerated Stand Alone Forms: Patient Portal Discharge page, Community Support Care Plan Goals: remain safe and stable in the outpatient treatment setting Health Concerns: none Plan of Treatment: take medications as prescribed, attend appointments as scheduled Assessment: not at imminent risk of harm to self or others Discharge Date/Time: 10/21/23 11:00
[2023-10-20] MEDS: cloZAPine 25 MG TABLET PO (13:51)
[2023-10-20 20:35] VITALS: BP 117/81; PULSE 112; RESP 16; TEMP 36.5; O2SAT 98
[2023-10-20] MEDS: cloZAPine 100 MG TABLET 200 MG PO (21:24)
[2023-10-20] MEDS: cloZAPine 25 MG TABLET 50 MG PO (21:24)
[2023-10-21 08:30] VITALS: BP 121/71; PULSE 116; RESP 18; O2SAT 97
[2023-10-21] MEDS: Thyroid,Pork 30 MG TABLET 60 MG PO (08:44)
[2023-10-21] MEDS: Multivitamin TABLET 1 TAB PO (08:45)
[2023-10-21] MEDS: Docusate Sodium 100 MG CAPSULE PO (08:45)
[2023-10-21 10:48] LABS: Clozapine (Clozaril) 321 mcg/L; Norclozapine 146 mcg/L (25-400)
== END 2023-10-21 11:00 | disposition home or self-care (01) | DRG 885 ==
PROVIDERS: Psychiatry & Neurology Psychiatry; Admitting Provider Registered Nurse; Visit Provider Psychiatry & Neurology Psychiatry
DX: F25.9 Schizoaffective disorder, unspecified (principal); R45.851 Suicidal ideations; G35 Multiple sclerosis; J45.30 Mild persistent asthma, uncomplicated; E78.5 Hyperlipidemia, unspecified; K21.9 Gastro-esophageal reflux disease without esophagitis; Z79.899 Other long term (current) drug therapy
CPT/HCPCS: 36415; 80053; 80061; 80159; 81003; 82947; 84443; 85025; 93005; J1631

== ENCOUNTER 2023-10-16 19:18 | Outpatient (BNV) | payer MEDICARE, MEDICAID, SELFPAY | END 2023-10-18 18:31 | PROVIDERS: Admitting Provider Registered Nurse; Visit Provider Internal Medicine Cardiovascular Disease | DX: R07.9 Chest pain, unspecified (principal) | CPT/HCPCS: 93010 ==

== ENCOUNTER → 2023-10-16 19:18 | Outpatient (BNV) | payer MEDICARE, MEDICAID, SELFPAY | PROVIDERS: Admitting Provider Registered Nurse; Visit Provider Registered Nurse | DX: F25.1 Schizoaffective disorder, depressive type (principal) | CPT/HCPCS: 90792; 99231; 99239 ==

== ENCOUNTER → 2023-10-16 19:18 | Outpatient (BNV) | payer MEDICARE, MEDICAID, SELFPAY | PROVIDERS: Admitting Provider Registered Nurse; Visit Provider Student in an Organized Health Care Education/Training Program | DX: F25.9 Schizoaffective disorder, unspecified (principal) | CPT/HCPCS: 99222; 99429 ==

== ENCOUNTER 2023-11-06 18:41 | Inpatient (IN) | payer MEDICARE, MEDICAID, SELFPAY ==
--- OUTSIDE RECORDS SUMMARY | 2023-11-06 18:44 | XMS_ITS | Continuity of Care Document ---
Author Organization [facility] Address [address] [place] [address]- Care Team Providers Care Tow Feeder Name Role Phone Nemo Linares Primary Care Physicia n Unavailable Encounter [facility] Date(s): 03/05/23 - 03/12/23 [facility] [address], [place] [address] Attending Physician: Yany Drummond MD Referring Physician: Nemo Linares Allergies, Adverse Reactions, Alerts No Known Allergies Immunizations Given and Recorded Vaccine Date Status Refusal Reason Influenza Inactive (IM) (oldterm) 1 06/28/08 Given 1Admin Note: SANOFI PASTEUR VIS GIVEN 02/16/2008 Medications albuterol 90 mcg/inh inhalation aerosol with adapter 2, puffs, Inhalation, 4 times a day, 17, Gm, 0, 0, 06/28/08 16:18:06, Print GODFREY Number, ADS OPPTHS,65, Constant Indicator Start Date: 06/28/08 Status: Ordered benztropine 0.5 mg oral tablet 1 tablet = 0.5 mg, By Mouth, 2 times a day, Please Deliver To [facility] Respite, # 60 tablet, 0 Refills, Maintenance, Tablet Start Date: 04/11/12 Stop Date: 05/11/12 Status: Ordered cetirizine 10 mg oral tablet 1 tablet = 10 mg, By Mouth, Daily, for 14 days, # 14 tablet, 0 Refills, Acute 03/19/23 11:01:00 EDT, 03/05/23 11:01:00 EDT, [facility]/pharmacy #[id number], Partial fill upon patient request if the prescription is for a schedule II opioid drug., 170, cm, 03/05/23... Start Date: 03/05/23 Stop Date: 03/19/23 Status: Ordered divalproex sodium 500 mg oral enteric coated tablet 1 tablet = 500 mg, By Mouth, 2 times a day, Daily in Morning and at Bedtime Please Deliver To [facility] Respite, # 60 tablet, 0 Refills, Maintenance, EC Tablet Start Date: 04/11/12 Stop Date: 05/11/12 Status: Ordered mdi spacer See Instructions, 1, 0, 0, 06/28/08 16:18:29, use woith inhaler. , ADS OPPTHS, Constant Indicator, mdi spacer Start Date: 06/28/08 Status: Ordered risperidone 2 mg oral tablet 1 tablet = 2 mg, By Mouth, 2 times a day, Daily in Morning and at Bedtime [facility], # [facility] tablet, 0 Refills, Maintenance, Tablet Start Date: 04/11/12 Stop Date: 05/11/12 Status: Ordered trazodone 50 mg oral tablet 1 tablet = 50 mg, By Mouth, Daily at bedtime, PRN Sleep, # 30 tablet, 0 Refills, Maintenance, Tablet Start Date: 04/11/12 Stop Date: 05/11/12 Status: Ordered Problem List Condition Confirmation Course Effective Dates Status Health St atus Informant Psychotic disorder Confirmed Active Vital Signs Most recent to oldest [Reference Range]: 1 Height 170.00 cm (03/05/23 10:45 AM) Oxygen Saturation [94-100 %] 100 % (03/05/23 10:45 AM) Pulse Rate [55-90 bpm] 121 bpm *H* (03/05/23 10:45 AM) Blood Pressure [90-138/55-84 mm Hg] 116/ 72mm Hg (03/05/23 10:45 AM) Respiratory Rate [16-30 br/min] 18 br/mi n (03/05/23 10:45 AM) Temperature [96.8-100.4 DegF] 97.4 DegF (03/05/23 10:45 AM) Mode of Delivery (Oxygen) Room air (03/05/23 10:45 AM) Blood pressure sites Arm, left (03/05/23 10:45 AM) Temperature Route Temporal (03/05/23 10:45 AM) Note * Oliver Allred: PERFORM, SIGN, VERIFY Event Display: Patient Education/Instruction Authored Date: [id number] [facility] *[facility] Clinical Summary Name TY RUEDA Age 37 Years 1985 PCP Vicky DANIEL, Nemo Mckeon PCP Phone Visit Date 03/05/2023 10:13:00 Additional Instructions: History and exam consistent with a stye and an allergy related pinkeye. Do warm moist compresses 20minutes every 2-3 hours. Erythromycin ointment 4 times a day for a week as directed. Ketotifen drops every 12 hours as directed for 1 week. Take the cetirizine allergy medicine once a day for 2 weeks. Follow-up with PCP if no improvement in 2 to 3 days or be seen sooner in the ER for any new or wors ening symptoms like worsening pain, vision changes, headache, or fever/chills. Scheduled Appointments?? Future Appointments ?No Future Appointments Scheduled Follow-Up Instructions ?? Diagnosis Medications: Please continue your medications until treatment is completed or stopped by your provider. Discuss any questions related to medications with your provider. New Medications [facility]/pharmacy #[id number], [address], [place] [id number], [phone] Cetirizine (cetirizine 10 mg oral tablet) 1 tab(s) Oral Daily for 14 Days. Refills: 0. Next Dose: Erythromycin Ophthalmic (erythromycin 0.5% ophthalmic ointment) 0.5 Inch Left eye 4 times a day for7 Days. Refills: 0. Next Dose: Ketotifen Ophthalmic (ketotifen 0.025% ophthalmic solution) 1 Drops Left eye every 12 hours for 7 Days. Refills: 0. Next Dose: Medications to Continue with No Changes These medications were not printed or sent to your pharmacy Albuterol (albuterol 90 mcg/inh inhalation aerosol with adapter) 2 puff(s) Inhalation 4 times a day. Refills: 0. Next Dose: Benztropine (benztropine 0.5 mg oral tablet) 1 tab(s) Oral twice a day for 30 Days. Please Deliver To [facility] Res[facility]. Refills: 0. Next Dose: Divalproex Sodium (divalproex sodium 500 mg oral enteric coated tablet) 1 tab(s) Oral twice a day for 30 Days. Daily in Morning and at Bedtime Please Deliver To [facility]. Refills: 0. Next Dose: Miscellaneous Medication (mdi spacer) See Instructions. use woith inhaler.. Refills: 0. Next Dose: Risperidone (risperidone 2 mg oral tablet) 1 tab(s) Oral twice a day for 30 Days. Daily in Morning and at Bedtime [facility] Refills: 0. Next Dose: Trazodone (trazodone 50 mg oral tablet) 1 tab(s) Oral Daily at Bedtime as needed Sleep for 30 Days.Refills: 0. Next Dose: Allergy Info:?? NKA Medications Given This Visit Future Orders ?No future orders Vital Signs Height 170.00 cm Weight BMI Blood Pressure 116 mm Hg/72 mm Hg Temperature 97.4 DegF Pulse Rate 121 bpm Respiratory Rate 18 br/min 02 Sat Mode of Delivery 100 %/Room air You can now view a summary of your hospital visit from the comfort of your home through a free online portal called Novadiol. Novadiol is a website that allows you to securely view your medical information including discharge summary, medications and follow-up visits. ??You can alsosend a secure electronic message to your doctor???s office to request appointments, renew medications or just ask a question. You can enroll at [email or web address] or register during your next office visit. Disclaimer:?? The information provided is of a general nature and is intended to be used in conjunction with the recommendations and advice of your health care practitioner. ??Every effort has been made to ensure that the information provided is accurate and complete at the time it is provided to you however, as your needs change, or, as new ??information becomes available, different or additional instructions may be required. If you have questions, please consult with your primary care provider or pharmacist, as appropriate. ??This information is not intended to serve as substitution for assessment and evaluation by a qualified health care provider. If you do not have a primary care provider, you may find a [facility] provider by calling [facility] at [phone]. For information about the plan of care including goals and instructions for your diagnosis, please see the patient education orders section of this document. Patient Education Materials?? The content of this educational material or handout may have been modified, supplemented, or adapted from its original content and format to support your individualized medical care. * Kaitlynn Moura: PERFORM, SIGN, VERIFY Event Display: Patient Education/Instruction Authored Date: [id number] [facility] *[facility] Clinical Summary Name TY RUEDA Age 37 Years 1985 PCP Vicky DANIEL, Nemo Mckeon PCP Phone Visit Date 03/05/2023 10:13:00 Additional Instructions: History and exam consistent with a stye and an allergy related pinkeye. Do warm moist compresses 20minutes every 2-3 hours. Erythromycin ointment 4 times a day for a week as directed. Olopatadine drops once a day as directed for 1 week. Take the cetirizine allergy medicine once a day for 2 weeks. Follow-up with PCP if no improvement in 2 to 3 days or be seen sooner in the ER for any new or worsening symptoms like worsening pain, vision changes, headache, or fever/chills. Scheduled Appointments?? Future Appointments ?No Future Appointments Scheduled Follow-Up Instructions ?? Diagnosis Medications: Please continue your medications until treatment is completed or stopped by your provider. Discuss any questions related to medications with your provider. New Medications [facility]/pharmacy #[id number], [address], [place] [id number], [phone] Cetirizine (cetirizine 10 mg oral tablet) 1 tab(s) Oral Daily for 14 Days. Refills: 0. Next Dose: Erythromycin Ophthalmic (erythromycin 0.5% ophthalmic ointment) 0.5 Inch Left eye 4 times a day for7 Days. Refills: 0. Next Dose: Olopatadine Ophthalmic (olopatadine 0.2% ophthalmic solution) 1 Drops Both eyes Daily for 7 Days. Refills: 0. Next Dose: Medications to Continue with No Changes These medications were not printed or sent to your pharmacy Albuterol (albuterol 90 mcg/inh inhalation aerosol with adapter) 2 puff(s) Inhalation 4 times a day. Refills: 0. Next Dose: Benztropine (benztropine 0.5 mg oral tablet) 1 tab(s) Oral twice a day for 30 Days. [facility] Refills: 0. Next Dose: Divalproex Sodium (divalproex sodium 500 mg oral enteric coated tablet) 1 tab(s) Oral twice a day for 30 Days. Daily in Morning and at Bedtime Please [facility] Refills: 0. Next Dose: Miscellaneous Medication (mdi spacer) See Instructions. use woith inhaler.. Refills: 0. Next Dose: Risperidone (risperidone 2 mg oral tablet) 1 tab(s) Oral twice a day for 30 Days. Daily in Morning and at Bedtime Please Deliver To [facility] Res[facility]. Refills: 0. Next Dose: Trazodone (trazodone 50 mg oral tablet) 1 tab(s) Oral Daily at Bedtime as needed Sleep for 30 Days.Refills: 0. Next Dose: Allergy Info:?? NKA Medications Given This Visit Future Orders ?No future orders Vital Signs Height 170.00 cm Weight BMI Blood Pressure 116 mm Hg/72 mm Hg Temperature 97.4 DegF Pulse Rate 121 bpm Respiratory Rate 18 br/min 02 Sat Mode of Delivery 100 %/Room air You can now view a summary of your hospital visit from the comfort of your home through a free online portal called Novadiol. Novadiol is a website that allows you to securely view your medical information including discharge summary, medications and follow-up visits. ??You can alsosend a secure electronic message to your doctor???s office to request appointments, renew medications or just ask a question. You can enroll at [email or web address] or register during your next office visit. Disclaimer:?? The information provided is of a general nature and is intended to be used in conjunction with the recommendations and advice of your health care practitioner. ??Every effort has been made to ensure that the information provided is accurate and complete at the time it is provided to you however, as your needs change, or, as new ??information becomes available, different or additional instructions may be required. If you have questions, please consult with your primary care provider or pharmacist, as appropriate. ??This information is not intended to serve as substitution for assessment and evaluation by a qualified health care provider. If you do not have a primary care provider, you may find a [facility] provider by calling [facility] at [phone]. For information about the plan of care including goals and instructions for your diagnosis, please see the patient education orders section of this document. Patient Education Materials?? The content of this educational material or handout may have been modified, supplemented, or adapted from its original content and format to support your individualized medical care. * Olievr Allred: PERFORM, SIGN, VERIFY Event Display: Patient Education/Instruction Authored Date: [id number] [facility] *[facility] Clinical Summary Name TY RUEDA Age 37 Years 1985 PCP Vicky DANIEL, Nemo Mckeon PCP Phone Visit Date 03/05/2023 10:13:00 Additional Instructions: History and exam consistent with a stye and an allergy related pinkeye. Do warm moist compresses 20minutes every 2-3 hours. Erythromycin ointment 4 times a day for a week as directed. Olopatadine drops once a day as directed for 1 week. Take the cetirizine allergy medicine once a day for 2 weeks. Follow-up with PCP if no improvement in 2 to 3 days or be seen sooner in the ER for any new or worsening symptoms like worsening pain, vision changes, headache, or fever/chills. Scheduled Appointments?? Future Appointments ?No Future Appointments Scheduled Follow-Up Instructions ?? Diagnosis Medications: Please continue your medications until treatment is completed or stopped by your provider. Discuss any questions related to medications with your provider. New Medications [facility]/pharmacy #[id number], [address], [place] [id number], [phone] Cetirizine (cetirizine 10 mg oral tablet) 1 tab(s) Oral Daily for 14 Days. Refills: 0. Next Dose: Erythromycin Ophthalmic (erythromycin 0.5% ophthalmic ointment) 0.5 Inch Left eye 4 times a day for7 Days. Refills: 0. Next Dose: Olopatadine Ophthalmic (olopatadine 0.2% ophthalmic solution) 1 Drops Both eyes Daily for 7 Days. Refills: 0. Next Dose: Medications to Continue with No Changes These medications were not printed or sent to your pharmacy Albuterol (albuterol 90 mcg/inh inhalation aerosol with adapter) 2 puff(s) Inhalation 4 times a day. Refills: 0. Next Dose: Benztropine (benztropine 0.5 mg oral tablet) 1 tab(s) Oral twice a day for 30 Days. Please Deliver To [facility] Respite. Refills: 0. Next Dose: Divalproex Sodium (divalproex sodium 500 mg oral enteric coated tablet) 1 tab(s) Oral twice a day for 30 Days. Daily in Morning and at Bedtime Please Deliver To [facility]. Refills: 0. Next Dose: Miscellaneous Medication (mdi spacer) See Instructions. use woith inhaler.. Refills: 0. Next Dose: Risperidone (risperidone 2 mg oral tablet) 1 tab(s) Oral twice a day for 30 Days. Daily in Morning and at Bedtime Please Deliver To [facility]. Refills: 0. Next Dose: Trazodone (trazodone 50 mg oral tablet) 1 tab(s) Oral Daily at Bedtime as needed Sleep for 30 Days.Refills: 0. Next Dose: Allergy Info:?? NKA Medications Given This Visit Future Orders ?No future orders Vital Signs Height 170.00 cm Weight BMI Blood Pressure 116 mm Hg/72 mm Hg Temperature 97.4 DegF Pulse Rate 121 bpm Respiratory Rate 18 br/min 02 Sat Mode of Delivery 100 %/Room air You can now view a summary of your hospital visit from the comfort of your home through a free online portal called Novadiol. Novadiol is a website that allows you to securely view your medical information including discharge summary, medications and follow-up visits. ??You can alsosend a secure electronic message to your doctor???s office to request appointments, renew medications or just ask a question. You can enroll at [email or web address] or register during your next office visit. Disclaimer:?? The information provided is of a general nature and is intended to be used in conjunction with the recommendations and advice of your health care practitioner. ??Every effort has been made to ensure that the information provided is accurate and complete at the time it is provided to you however, as your needs change, or, as new ??information becomes available, different or additional instructions may be required. If you have questions, please consult with your primary care provider or pharmacist, as appropriate. ??This information is not intended to serve as substitution for assessment and evaluation by a qualified health care provider. If you do not have a primary care provider, you may find a [facility] provider by calling [facility] at [phone]. For information about the plan of care including goals and instructions for your diagnosis, please see the patient education orders section of this document. Patient Education Materials?? The content of this educational material or handout may have been modified, supplemented, or adapted from its original content and format to support your individualized medical care. Patient Care team information Care Team Personnel Name: Nemo Linares Position: Reference Physician Member Role: PCP Address: Address: [address] [place] [address]- Care Team Related Persons Name: ELISA JOHNSON Address: home [address], [place] Name: PIPE JOHNSON Address: home [address] [place] [id number] Name: STEPHANIE NAQVI Address: home [address], [place] Name: ANASTASIA NAQVI Address: [place] [address]
--- OUTSIDE RECORDS SUMMARY | 2023-11-06 18:44 | XMS_ITS | Continuity of Care Document ---
Author Organization [facility] Address [address] [place] [address]- Care Team Providers Care Marketing Production Manager Name Role Phone Nemo Linares Primary Care Physicia n Unavailable Encounter [facility] Date(s): 03/05/23 - 04/04/23 [facility] [address], [place] [address] Attending Physician: Lisa Pinto Admitting Physician: AdmLisa knox Referring Physician: AdmtrLisa Allergies, Adverse Reactions, Alerts No Known Allergies [...] 2 times a day, Please Deliver To [facility] Respite, # 60 tablet, 0 Refills, Maintenance, Tablet Start Date: 04/11/12 Stop Date: 05/11/12 Status: Ordered divalproex sodium 500 mg oral enteric coated tablet 1 tablet = 500 mg, By Mouth, 2 times a day, Daily in Morning and at Bedtime Please Deliver To [facility], # 60 tablet, 0 Refills, Maintenance, [...] Morning and at Bedtime Please Deliver To [facility] Res[facility], # 60 tablet, 0 Refills, Maintenance, [...] St [facility] Informant Psychotic disorder Confirmed Active Patient Care team information Care Team Personnel Name: Nemo Linares Position: Reference Physician Member Role: PCP Address: Address: [address] [place] [address]- Care Team Related Persons Name: ELIAS JOHNSON Address: home [address] [place] [address] Name: PIPE JOHNSON Address: home [address] [place] [id number] Name: STEPHANIE NAQVI Address: home [address] [place] [address] Name: ANASTASIA NAQVI Address: [place] [address]
[2023-11-06 18:52] VITALS: BP 134/70; PULSE 113; RESP 18; TEMP 36.5; O2SAT 97
[2023-11-06 19:10] VITALS: BMI 31.8
--- NOTE | 2023-11-06 19:20 | PC.ADMIT ---
Pt arrived on M3 on 11/06/23 at 1852 from [facility] on a CV for treatment of increased anxiety with command auditory hallucinations to kill herself without a plan. Skin check completed by this RN and Tejal Bui RN. Vitals taken and entered, meal ordered, oriented to the unit. Will pass on to next RN.
[2023-11-06 20:02] VITALS: BP 119/75; PULSE 113; RESP 16; TEMP 36.6; O2SAT 99
[2023-11-06] MEDS: cloZAPine 100 MG TABLET 200 MG PO (23:12)
[2023-11-07 02:34] VITALS: BMI 31.9
--- NOTE | 2023-11-07 02:36 | PC.ADMIT ---
Pt is a 38 yo female admitted to the unit after referral from [facility] and was transferred from [facility] [place] to [facility] M3. Arrived on unit at 1852 on 11/06/2023. Pt signed a CV. Pt has a legal guardian and has a michael's order. Pt's legal guardian is her sister, Griselda Castro @ [phone]. We currently do not have that paperwork, Deysi @ [facility] faxed michael's paperwork but stated would have endless track vehicle supervisor fax guardianship paperwork to us. Pt lives in a [facility]. Pt medical issues are hypothyroidism and a recent dx of MS. Pt denies etoh, substance or tobacco use. Per crisis report, precipitant to admission could be her recent dx w/MS. Pt reports increasing AH over last several days and CAH to kill and hurt self. Pt presents as soft spoken and pleasant. Pt went to bed shortly after arrival, therefore admission was done with some pt input but mostly crisis assessment. Pt was not able to sign any legals or paperwork on arrival d/t being tired and sleeping. Pt is taking clozaril currently, 200mg was given at HS on 11/05 and the afternoon dose of 125mg will be verified and done in daytime. Provider marketing operations associate AL notified of admission, orders obtained and medication reconciliation has been done. Pt placed on 15 minute safety checks. Pt states she feels safe here on unit.
[2023-11-07 06:00] VITALS: BP 100/67; PULSE 95; RESP 14; TEMP 36.6; O2SAT 97
[2023-11-07 07:58] LABS: Neut%MD 65.3 %; Neutrophils Absolute Auto 3.6 x10*3/uL (2.0-8.3); WBCANC 5.5 X10*3/uL
[2023-11-07 07:59] LABS: Alanine Aminotransferase 13 U/L (0-31); Albumin Level 4.1 g/dL (3.5-5.0); Alkaline Phosphatase 63 U/L (39-117); Anion Gap 11 (12-20); Aspartate Amino Transferase 13 U/L (5-31); Bilirubin Total 0.3 mg/dL (0.0-1.0); Blood Urea Nitrogen 15 mg/dL (9-16); Calcium 9.2 mg/dL (8.4-10.2); Carbon Dioxide 27 mmol/L (22-29); Chloride 107 mmol/L (96-108); Cholesterol 206 mg/dL (<200); Creatinine Clr Calc Pharmacy 104.5; Estimated Glomerular Filt Rate > 60; Glucose Fasting 103 mg/dL (60-99); HDL Cholesterol 28 mg/dL (>40); LDL Cholesterol Calculated 129 mg/dL (<100); Potassium 4.4 mmol/L (3.3-5.1); Sodium 141 mmol/L (135-145); Total Protein 6.2 g/dL (6.5-8.0); Triglycerides 249 mg/dL (<150)
[2023-11-07] MEDS: cloZAPine 100 MG TABLET PO (09:18)
[2023-11-07] MEDS: Folic Acid 1 MG TABLET PO (09:18)
[2023-11-07] MEDS: Thyroid,Pork 30 MG TABLET PO (09:18)
[2023-11-07] MEDS: Loratadine 10 MG TABLET PO (09:18)
[2023-11-07] MEDS: Docusate Sodium 100 MG CAPSULE PO ×2 (09:18→21:57)
[2023-11-07] MEDS: cloZAPine 25 MG TABLET PO (09:18)
[2023-11-07] MEDS: Multivitamin TABLET 1 TAB PO (09:18)
[2023-11-07] MEDS: Ferrous Sulfate 324 MG TABLET.DR PO (09:18)
[2023-11-07] MEDS: Omeprazole 20 MG CAPSULE.DR PO (09:18)
[2023-11-07] MEDS: Benztropine Mesylate 1 MG TABLET 2 MG PO ×3 (09:31→21:57)
--- NOTE | 2023-11-07 11:44 | HO.PSYADMNOT ---
HPI Date of Service: 11/07/23 Chief Complaint: Unspecified anxiety disorder Sources of Information: patient interviewed, chart reviewed and crisis/core team assessment reviewed HPI Subjective Notes: Conditional Voluntary Guardianship: Yes Narrative: 38-year-old female, history of schizoaffective disorder, direct admission from [facility], where patient had presented with worsening auditory hallucinations to hurt herself. Patient resident at [facility] for around 10 years. Reviewed medication administration record and clarified clozapine dose is 125 mg at 14:00, 250 mg at bedtime, Cogentin 2 mg 3 times per day, Klonopin 1 mg at 17:00, thyroid supplementation 60 mg daily, Colace 100 mg twice daily, magnesium 400 mg at 17:00, Claritin 10mg daily, iron 325 mg, Invega 234 mg sustained a monthly injection, given 11/05/2023 by visiting nurse services. Lab work unremarkable, CBC with ANC of 3 160 on 11/05/2023, tox, HCG unremarkable. [facility], with some information available in the chart, but details around actual medications appears to be missing. patient reports today hearing voices telling her to hurt herself. Upset by these. Hopeful medications can be reviewed and clarified. Also fear that she will get killed by people in the community i.e. paranoid. Reports sleep as being okay. Denies depression. Denies wanting to act on CAH. No HI. Reports being adherent with medications. Denies any recent stressors at senior living. No substance use. Past Psychiatric History: Schizoaffective disorder. Recent discharge from [facility]. On clozapine for approximately 2-3 years. [facility] order. [facility] hospitalization-2021 lives at [facility] connected senior living. Therapist: [facility] Reviewed: Hospitalist Ra[facility]el [facility] Medical History (Updated 10/29/23 @ 00:03 by Background Jennifer) Medical clearance for psychiatric admission Mild persistent asthma Multiple sclerosis HLD (hyperlipidemia) Family History: unknown Social History: lives in residential senior living through [facility] ([facility]), single, sister, Griselda is legal guardian. Single. No legal issues. No substance issues. As a child aged 16. Substance History: denied Trauma History: denies Diagnostics Vital Signs (24Hr): Vital Signs - 24 hr 11/06/23 18:52 11/06/23 20:02 11/07/23 06:00 Temperature 97.7 F 97.9 F 97.9 F Pulse Rate 113 H 113 H 95 Respiratory Rate 18 16 14 Blood Pressure 134/70 119/75 100/67 Pulse Oximetry 97 99 97 Oxygen Delivery Method Room Air Room Air Room Air BMI result Body Mass Index 31.9 Labs 11/07/23 07:30 Labs: Laboratory Results - last 48 hr 11/07/23 07:30 Absolute Neuts (auto) 3.6 Sodium 141 Potassium 4.4 Chloride 107 Carbon Dioxide 27 Anion Gap 11 L BUN 15 Creatinine 0.78 Estim Creat Clear Calc 104.5 Estimated GFR > 60 Fasting Glucose 103 H Calcium 9.2 Total Bilirubin 0.3 AST 13 ALT 13 Alkaline Phosphatase 63 Total Protein 6.2 L Albumin 4.1 Triglycerides 249 H Cholesterol 206 H LDL Cholesterol, Calc 129 H HDL Cholesterol 28 L Meds/Allergies Meds Home Medications ?Medication ?Instructions ?Recorded ?Confirmed ?Type docusate sodium 100 mg capsule 100 mg PO BID 10/16/23 11/06/23 History haloperidol decanoate 100 mg/mL 100 mg IM Q2W 10/16/23 11/06/23 History intramuscular solution ibuprofen 600 mg tablet 600 mg PO Q6H PRN pain 10/16/23 11/07/23 History multivitamin with folic acid 400 1 tab PO DAILY 10/16/23 11/06/23 History mcg tablet (Daily-Pratik (with folic acid)) paliperidone palmitate 234 mg/1.5 234 mg IM Q4W 10/16/23 11/06/23 History mL intramuscular syringe (Invega Sustenna) pantoprazole 40 mg tablet,delayed 40 mg PO DAILY 10/16/23 11/06/23 History release thyroid (pork) 60 mg tablet (VIROLOGY TEACHER 60 mg PO DAILY 10/16/23 11/06/23 History Thyroid) albuterol sulfate 90 mcg/actuation 2 puff inhalation Q4H PRN wheezing 10/17/23 11/07/23 History aerosol inhaler loratadine 10 mg tablet 10 mg PO DAILY 10/17/23 11/06/23 History benztropine 2 mg tablet 2 mg PO TID 11/06/23 11/06/23 History clonazepam 1 mg tablet 1 mg PO BID PRN Anxiety 11/06/23 11/06/23 History clozapine 100 mg tablet 100 mg PO DAILY 11/06/23 11/06/23 History clozapine 200 mg tablet 200 mg PO BEDTIME 11/06/23 11/06/23 History clozapine 25 mg tablet 25 mg PO DAILY 11/06/23 11/06/23 History dimethyl fumarate 120 mg 120 mg PO BID 11/06/23 11/06/23 History capsule,delayed release dimethyl fumarate 240 mg 240 mg PO BID 11/06/23 11/06/23 History capsule,delayed release ferrous sulfate 325 mg (65 mg 325 mg PO DAILY 11/06/23 11/06/23 History iron) tablet folic acid 1 mg tablet 1 mg PO DAILY 11/06/23 11/06/23 History haloperidol lactate 2 mg/mL oral 10 mg PO BID PRN Agitation 11/06/23 11/06/23 History concentrate thyroid (pork) 15 mg tablet 15 mg PO DAILY 11/06/23 11/06/23 History ([place] Thyroid) thyroid (pork) 30 mg tablet (VIROLOGY TEACHER 30 mg PO DAILY 11/06/23 11/06/23 History Thyroid) magnesium oxide 400 mg PO DAILY 11/07/23 11/07/23 History Allergies Allergies Allergy/AdvReac Type Severity Reaction Status Date / Time Pork/Porcine Containing Allergy Unknown RASH Verified 11/07/23 13:03 Products [PORK/PORCINE CONTAINING PRODUCTS] citalopram Allergy Unknown Verified 10/17/23 02:24 trazodone Allergy Unknown Verified 10/17/23 02:24 ALPHA LIPOIC ACID Allergy Unknown Uncoded 10/17/23 02:24 VIROLOGY TEACHER-3 THYROID TOXICITY Allergy Unknown Uncoded 10/17/23 02:24 Mental Status Exam Mental Status Exam Narrative: in room. Hospital clothing. Self-care okay. Pleasant. Engaged. Is concrete. Flat affect. Endorses command hallucinations to hurt herself. Denies wanting to act upon these or plans or intent. no HI. Paranoid delusions. No agitation. Insight and judgment fair Assessment & Plan Assessment & Plan (1) Schizoaffective disorder: Status: Acute Code(s): F25.9 - Schizoaffective disorder, unspecified Plan Presents with command hallucinations, paranoia, senior living setting and adherent with medications. Unclear if there are any additional stressors. Need to clarify [facility] order details i.e. medications available and dose ranges. With that in mind will not make any medication changes. Patient educated on: therapeutic strategies Informed Consent: understands Reason for continued inpatient stay Substantial Risk for: harm to self and inability to function Statement Statement: I have reviewed the history and physical and performed a pertinent examination on my patient. No changes have occurred unless specified. If the History and Physical was not performed prior to admission, the Hospitalist's service will be consulted for completing the admission physical. Time Spent With Patient Time: Total time managing care of this patient today ____ minutes.
--- NOTE | 2023-11-07 13:03 | PC.NURSE ---
[facility] verified that patient does have a pork based allergy. Per pharmacy and long-term, patient takes [place] Thyroid at home and is able to continue at this time.
--- NOTE | 2023-11-07 14:06 | HO.PM.IMCN ---
History of Present Illness Data of Consult Service Date: 11/07/23 Primary Care Provider: Unknown Physician HPI Reason for consult: Admission H&P Pt is a 38-year-old female with a PMH significant for?MS, mild persistent asthma, HLD, GERD, schizophrenia, and bipolar disorder who [facility] for ongoing auditory hallucinations for the past several days that have been commanding in nature. Denies SI or HI. Medical consult for admission H&P. ?Patient was recently diagnosed in August with MS after experiencing seizure-like activity. Reports follows with Dr. Doran from Neurology, but patient states she has yet to picker feeder any medications she is still experiencing insurance difficulties. States has been having bilateral leg weakness with walking for awhile but no new symptoms. Denies any other medical complaints. No chest pain/pressure, palpitations. Denies shortness of breath. No fever, chills, nausea, vomiting, abdominal pain. No headache or acute vision changes. Labs reviewed, significant for elevated lipid panel, otherwise grossly unremarkable. Review of Systems Review of Systems: Chronic lower leg weakness Patient otherwise has no medical complaints [facility] Medical History (Updated 11/07/23 @ 15:11 by FREDY Rucker) Medical clearance for psychiatric admission Mild persistent asthma Multiple sclerosis HLD (hyperlipidemia) Social History Household Members: Other Housing: Other Housing Other:: Correction Do you presently have visiting nurse or other home services: Yes Patient Tobacco Use Status: Never used Tobacco e-Cigarette/Vaping Use: Never Used Second Hand Smoke Exposure: No Use of substances other than those prescribed or required for medical reasons: No Currently Displaying Signs/Symptoms of Drug Intoxication Withdrawal: No Advance Directives: No Advance Directives Information Provided: No Do you have thoughts of harming others: None Do you have a plan to hurt others: No Plan Recently lost weight without trying: No Nutrition Risks: No Nutritional Risk Patient : No : No Poor oral hygiene: No service: No Sexual orientation: Don't Know Meds Allergies Allergy/AdvReac Type Severity Reaction Status Date / Time Pork/Porcine Containing Allergy Unknown RASH Verified 11/07/23 13:03 Products [PORK/PORCINE CONTAINING PRODUCTS] citalopram Allergy Unknown Verified 10/17/23 02:24 trazodone Allergy Unknown Verified 10/17/23 02:24 ALPHA LIPOIC ACID Allergy Unknown Uncoded 10/17/23 02:24 ZINC FURNACE CHARGER-3 THYROID TOXICITY Allergy Unknown Uncoded 10/17/23 02:24 Active Medications: Current Medications Acetaminophen (Acetaminophen 325 Mg Tablet) 650 mg PO Q6H PRN PRN Reason: Headache/Pain Mild Scale (1-3) Al Hydroxide/Mg Hydroxide (Magnesium Hydrox/Alum Hydrox 30 Ml Oral.Susp) 30 ml PO Q6H PRN PRN Reason: Heartburn/Nausea Benztropine Mesylate (Benztropine Mesylate 1 Mg Tablet) 2 mg PO TID [facility] Last Admin: 11/07/23 09:31 Dose: 2 mg Clonazepam (Clonazepam 1 Mg Tablet) 1 mg PO BID PRN PRN Reason: Anxiety Clozapine (Clozapine 25 Mg Tablet) 125 mg PO DAILY@1400 [facility] Clozapine (Clozapine 100 Mg Tablet) 250 mg PO BEDTIME [facility] Docusate Sodium (Docusate Sodium 100 Mg Capsule) 100 mg PO BID [facility] Last Admin: 11/07/23 09:18 Dose: 100 mg Ferrous Sulfate (Ferrous Sulfate 324 Mg Tablet.) 324 mg PO DAILY [facility] Last Admin: 11/07/23 09:18 Dose: 324 mg Folic Acid (Folic Acid 1 Mg Tablet) 1 mg PO DAILY [facility] Last Admin: 11/07/23 09:18 Dose: 1 mg Haloperidol Lactate (Haloperidol Lactate Oral Conc 10 Mg/5 Ml Oral.Conc) 10 mg PO BID PRN PRN Reason: Agitation Hydroxyzine HCl (Hydroxyzine Hcl 25 Mg Tablet) 25 mg PO Q6H PRN PRN Reason: Anxiety Loratadine (Loratadine 10 Mg Tablet) 10 mg PO DAILY [facility] Last Admin: 11/07/23 09:18 Dose: 10 mg Magnesium Hydroxide (Milk Of Magnesia 30 Ml Oral.Susp) 30 ml PO DAILY PRN PRN Reason: Constipation Multivitamins/Vitamin C (Multivitamin Tablet) 1 tab PO DAILY [facility] Last Admin: 11/07/23 09:18 Dose: 1 tab Nicotine Polacrilex (Nicotine Polacrilex 2 Mg Gum) 2 mg BUCCAL Q2H PRN PRN Reason: Nicotine Cravings Non-Formulary Medication (Dimethyl Fumarate) 120 mg PO BID [facility] Omeprazole (Omeprazole 20 Mg Capsule.) 20 mg PO DAILY [facility] Last Admin: 11/07/23 09:18 Dose: 20 mg Thyroid (Thyroid,Pork 30 Mg Tablet) 60 mg PO DAILY [facility] Home Medications ?Medication ?Instructions ?Recorded ?Confirmed ?Last Taken ?Type docusate sodium 100 mg capsule 100 mg PO BID 10/16/23 11/06/23 10/16/23 History haloperidol decanoate 100 mg/mL 100 mg IM Q2W 10/16/23 11/06/23 Unknown History intramuscular solution ibuprofen 600 mg tablet 600 mg PO Q6H PRN pain 10/16/23 11/07/23 Unknown History multivitamin with folic acid 400 1 tab PO DAILY 10/16/23 11/06/23 10/15/23 08:00 History mcg tablet (Daily-Pratik (with folic acid)) paliperidone palmitate 234 mg/1.5 234 mg IM Q4W 10/16/23 11/06/23 Unknown History mL intramuscular syringe (Invega Sustenna) pantoprazole 40 mg tablet,delayed 40 mg PO DAILY 10/16/23 11/06/23 11/06/23 15:18 History release thyroid (pork) 60 mg tablet (ZINC FURNACE CHARGER 60 mg PO DAILY 10/16/23 11/06/23 10/15/23 08:00 History Thyroid) albuterol sulfate 90 mcg/actuation 2 puff inhalation Q4H PRN wheezing 10/17/23 11/07/23 Unknown History aerosol inhaler loratadine 10 mg tablet 10 mg PO DAILY 10/17/23 11/06/23 11/06/23 15:17 History benztropine 2 mg tablet 2 mg PO TID 11/06/23 11/06/23 11/06/23 15:08 History clonazepam 1 mg tablet 1 mg PO BID PRN Anxiety 11/06/23 11/06/23 11/06/23 15:06 History clozapine 100 mg tablet 100 mg PO DAILY 11/06/23 11/06/23 11/06/23 15:09 History clozapine 200 mg tablet 200 mg PO BEDTIME 11/06/23 11/06/23 Unknown History clozapine 25 mg tablet 25 mg PO DAILY 11/06/23 11/06/23 11/06/23 15:09 History dimethyl fumarate 120 mg 120 mg PO BID 11/06/23 11/06/23 Unknown History capsule,delayed release dimethyl fumarate 240 mg 240 mg PO BID 11/06/23 11/06/23 Unknown History capsule,delayed release ferrous sulfate 325 mg (65 mg 325 mg PO DAILY 11/06/23 11/06/23 Unknown History iron) tablet folic acid 1 mg tablet 1 mg PO DAILY 11/06/23 11/06/23 Unknown History haloperidol lactate 2 mg/mL oral 10 mg PO BID PRN Agitation 11/06/23 11/06/23 Unknown History concentrate thyroid (pork) 15 mg tablet 15 mg PO DAILY 11/06/23 11/06/23 Unknown History ([place] Thyroid) thyroid (pork) 30 mg tablet (ZINC FURNACE CHARGER 30 mg PO DAILY 11/06/23 11/06/23 11/06/23 15:17 History Thyroid) magnesium oxide 400 mg PO DAILY 11/07/23 11/07/23 11/06/23 17:05 History Physical Exam Vital Signs and Narrative: Vital Signs: Last Vital Signs Temp 97.9 F 11/07/23 06:00 Pulse 95 11/07/23 06:00 Resp 14 11/07/23 06:00 BP 100/67 11/07/23 06:00 Pulse Ox 97 11/07/23 06:00 O2 Del Method Room Air 11/07/23 06:00 BMI result Body Mass Index 31.9 General: AOx3, no acute distress Resp: CTA bilaterally CVS: S1, S2, RRR GI: +BS, NT, no distention Skin: Warm, dry Neuro: Cranial nerves II-XII grossly intact bilaterally. Motor grossly intact bilaterally though global weakness noted. Extremities: No edema Psych: Flat affect Results Labs 11/07/23 07:30 Labs: Laboratory Results - last 24 hr 11/07/23 07:30 Absolute Neuts (auto) 3.6 Anion Gap 11 L Estim Creat Clear Calc 104.5 Estimated GFR > 60 Fasting Glucose 103 H Calcium 9.2 Total Bilirubin 0.3 AST 13 ALT 13 Alkaline Phosphatase 63 Total Protein 6.2 L Albumin 4.1 Triglycerides 249 H Cholesterol 206 H LDL Cholesterol, Calc 129 H HDL Cholesterol 28 L Assessment and Plan (1) Medical clearance for psychiatric admission: Status: Acute Plan Pt is a 38-year-old female with a PMH significant for?MS, mild persistent asthma, HLD, GERD, schizophrenia, and bipolar disorder who [facility] for ongoing auditory hallucinations for the past several days that have been commanding in nature. Denies SI or HI. Medical consult for admission H&P. Mood disorder Plan as per Psychiatry Multiple sclerosis Recently diagnosed in August, follows with Dr. Doran Has not yet filled new prescription Follow-up outpatient with Neurology Moderate persistent asthma Not in acute exacerbation Continue home inhalers GERD Continue PPI Thank you for allowing us to participate in the care of this patient. Signing off at this time. Please re-consult if any acute complaints or issues arise.
--- NOTE | 2023-11-07 15:53 | PC.NURSE ---
Dimehtyl Fumarate ordered by Dr. Mcbride on this date. Medication is not available in formulary. residential called and message left requesting call back to confirm if medication is available to bring to hospital. Medication unverified at this time. Provider made aware it remains unavailable at this time.
[2023-11-07] MEDS: clonazePAM 1 MG TABLET PO (17:47)
[2023-11-07] MEDS: Magnesium Hydrox/Alum Hydrox 30 ML ORAL.SUSP PO (19:05)
[2023-11-07 19:54] VITALS: BP 109/68; PULSE 111; RESP 16; TEMP 36.4; O2SAT 98
[2023-11-07] MEDS: cloZAPine 100 MG TABLET 250 MG PO (21:57)
[2023-11-07] MEDS: Acetaminophen 325 MG TABLET 650 MG PO (21:58)
[2023-11-08 07:37] VITALS: BP 101/61; PULSE 99; RESP 16; TEMP 36.4; O2SAT 97
[2023-11-08] MEDS: Loratadine 10 MG TABLET PO (08:47)
[2023-11-08] MEDS: Docusate Sodium 100 MG CAPSULE PO ×2 (08:47→20:43)
[2023-11-08] MEDS: Thyroid,Pork 30 MG TABLET 60 MG PO (08:47)
[2023-11-08] MEDS: Benztropine Mesylate 1 MG TABLET 2 MG PO ×3 (08:47→20:42)
[2023-11-08] MEDS: Magnesium Oxide 400 MG TABLET PO (08:47)
[2023-11-08] MEDS: Omeprazole 20 MG CAPSULE.DR PO (08:47)
[2023-11-08] MEDS: Folic Acid 1 MG TABLET PO (08:47)
[2023-11-08] MEDS: Multivitamin TABLET 1 TAB PO (08:47)
--- NOTE | 2023-11-08 10:57 | P.PNPSI_ITS ---
Subjective Subjective Date of Service: 11/08/23 Reason For Visit: Unspecified anxiety disorder Subjective Notes: Conditional Voluntary Interim History: Pt reports hearing more voices prior to coming to the hospital. She reports voices are telling her that someone is going to kill her. She denies SI/HI. She reports feeling anxious because of voices but also reports medication changes helped and feels better than when she came here. We discussed constipation- which she denies given combination of high dose cogentin with clozapine. She reports sleeping well. Review of Systems Review of Systems Chronic lower leg weakness Patient otherwise has no medical complaints Yes all other systems are reviewed and are negative Mental Status Exam Mental Status Exam Narrative: in room. Hospital clothing. Self-care okay. Pleasant. Engaged. Is concrete. Flat affect. Endorses command hallucinations to hurt herself. Denies wanting to act upon these or plans or intent. no HI. Paranoid delusions. No agitation. Insight and judgment fair Diagnostics Vital Signs (24Hr): Vital Signs - 24 hr 11/07/23 19:54 11/08/23 07:37 Temperature 97.6 F 97.6 F Pulse Rate 111 H 99 Respiratory Rate 16 16 Blood Pressure 109/68 101/61 Pulse Oximetry 98 97 Oxygen Delivery Method Room Air Room Air BMI result Body Mass Index 31.9 Labs 11/07/23 07:30 Labs: Laboratory Results - last 48 hr 11/07/23 07:30 Absolute Neuts (auto) 3.6 Sodium 141 Potassium 4.4 Chloride 107 Carbon Dioxide 27 Anion Gap 11 L BUN 15 Creatinine 0.78 Estim Creat Clear Calc 104.5 Estimated GFR > 60 Fasting Glucose 103 H Calcium 9.2 Total Bilirubin 0.3 AST 13 ALT 13 Alkaline Phosphatase 63 Total Protein 6.2 L Albumin 4.1 Triglycerides 249 H Cholesterol 206 H LDL Cholesterol, Calc 129 H HDL Cholesterol 28 L Medications Medications Current Medications Acetaminophen (Acetaminophen 325 Mg Tablet) 650 mg PO Q6H PRN PRN Reason: Headache/Pain Mild Scale (1-3) Last Admin: 11/07/23 21:58 Dose: 650 mg Al Hydroxide/Mg Hydroxide (Magnesium Hydrox/Alum Hydrox 30 Ml Oral.Susp) 30 ml PO Q6H PRN PRN Reason: Heartburn/Nausea Last Admin: 11/07/23 19:05 Dose: 30 ml Benztropine Mesylate (Benztropine Mesylate 1 Mg Tablet) 2 mg PO TID [facility] Last Admin: 11/08/23 08:47 Dose: 2 mg Clonazepam (Clonazepam 1 Mg Tablet) 1 mg PO DAILY@1700 [facility] Last Admin: 11/07/23 17:47 Dose: 1 mg Clozapine (Clozapine 25 Mg Tablet) 125 mg PO DAILY@1400 [facility] Clozapine (Clozapine 100 Mg Tablet) 250 mg PO BEDTIME [facility] Last Admin: 11/07/23 21:57 Dose: 250 mg Docusate Sodium (Docusate Sodium 100 Mg Capsule) 100 mg PO BID [facility] Last Admin: 11/08/23 08:47 Dose: 100 mg Ferrous Sulfate (Ferrous Sulfate 324 Mg Tablet.) 324 mg PO DAILY [facility] Last Admin: 11/08/23 08:50 Dose: Not Given Folic Acid (Folic Acid 1 Mg Tablet) 1 mg PO DAILY [facility] Last Admin: 11/08/23 08:47 Dose: 1 mg Haloperidol Lactate (Haloperidol Lactate Oral Conc 10 Mg/5 Ml Oral.Conc) 10 mg PO BID PRN PRN Reason: Agitation Hydroxyzine HCl (Hydroxyzine Hcl 25 Mg Tablet) 25 mg PO Q6H PRN PRN Reason: Anxiety Loratadine (Loratadine 10 Mg Tablet) 10 mg PO DAILY [facility] Last Admin: 11/08/23 08:47 Dose: 10 mg Magnesium Hydroxide (Milk Of Magnesia 30 Ml Oral.Susp) 30 ml PO DAILY PRN PRN Reason: Constipation Magnesium Oxide (Magnesium Oxide 400 Mg Tablet) 400 mg PO DAILY [facility] Last Admin: 11/08/23 08:47 Dose: 400 mg Multivitamins/Vitamin C (Multivitamin Tablet) 1 tab PO DAILY [facility] Last Admin: 11/08/23 08:47 Dose: 1 tab Nicotine Polacrilex (Nicotine Polacrilex 2 Mg Gum) 2 mg BUCCAL Q2H PRN PRN Reason: Nicotine Cravings Non-Formulary Medication (Dimethyl Fumarate) 120 mg PO BID [facility] Omeprazole (Omeprazole 20 Mg Capsule.) 20 mg PO DAILY [facility] Last Admin: 11/08/23 08:47 Dose: 20 mg Thyroid (Thyroid,Pork 30 Mg Tablet) 60 mg PO DAILY [facility] Last Admin: 11/08/23 08:47 Dose: 60 mg Allergies Allergies Allergy/AdvReac Type Severity Reaction Status Date / Time Pork/Porcine Containing Allergy Unknown RASH Verified 11/07/23 13:03 Products [PORK/PORCINE CONTAINING PRODUCTS] citalopram Allergy Unknown Verified 10/17/23 02:24 trazodone Allergy Unknown Verified 10/17/23 02:24 ALPHA LIPOIC ACID Allergy Unknown Uncoded 10/17/23 02:24 HEEL DIPPER-3 THYROID TOXICITY Allergy Unknown Uncoded 10/17/23 02:24 Assessment & Plan Assessment & Plan (1) Schizoaffective disorder: Status: Acute Code(s): F25.9 - Schizoaffective disorder, unspecified Plan Pt is a 38-year-old female with a PMH significant for?MS, mild persistent asthma, HLD, GERD, schizophrenia, and bipolar disorder who is admitted to [facility]ry unit from [facility] for ongoing auditory hallucinations for the past several days that have been commanding in nature. Denies SI or HI. Medical consult for admission H&P. Mood disorder Plan as per Psychiatry PLAN 1. monitor constipation. continue tx. Reason for continued inpatient stay Substantial Risk for: inability to function Time Spent With Patient Time: Total time managing care of this patient today ____ minutes.
[2023-11-08] MEDS: cloZAPine 25 MG TABLET 125 MG PO (13:08)
[2023-11-08] MEDS: clonazePAM 1 MG TABLET PO (17:12)
[2023-11-08 19:50] VITALS: BP 133/82; PULSE 112; RESP 18; TEMP 36.5; O2SAT 100
[2023-11-08] MEDS: cloZAPine 100 MG TABLET 250 MG PO (20:42)
[2023-11-08] MEDS: Haloperidol Lactate Oral Conc 10 MG/5 ML ORAL.CONC PO (20:51)
[2023-11-09 08:00] VITALS: BP 105/55; PULSE 99; RESP 16; TEMP 36.4; O2SAT 97
[2023-11-09] MEDS: Omeprazole 20 MG CAPSULE.DR PO (09:03)
[2023-11-09] MEDS: Magnesium Oxide 400 MG TABLET PO (09:04)
[2023-11-09] MEDS: Loratadine 10 MG TABLET PO (09:04)
[2023-11-09] MEDS: Docusate Sodium 100 MG CAPSULE PO ×2 (09:04→20:17)
[2023-11-09] MEDS: Multivitamin TABLET 1 TAB PO (09:04)
[2023-11-09] MEDS: Benztropine Mesylate 1 MG TABLET 2 MG PO ×3 (09:05→20:16)
[2023-11-09] MEDS: Folic Acid 1 MG TABLET PO (09:05)
[2023-11-09] MEDS: Thyroid,Pork 30 MG TABLET 60 MG PO (09:05)
--- NOTE | 2023-11-09 11:23 | P.PNPSI_ITS ---
Subjective Subjective Date of Service: 11/09/23 Reason For Visit: Unspecified anxiety disorder Subjective Notes: Conditional Voluntary Interim History: Reviewed with Dr. Louis. Pt presents guarded; she reports feeling depressed . Pt reports auditory hallucinations at this time; pt stated, I'm still having suicidal thoughts. The voices tell me they want to kill me . Pt reports she does not want to harm herself. pt denies HI/VH. Medication Compliance: Yes Review of Systems Constitutional: Reports as per HPI Eyes: Reports as per HPI Reports as per HPI Cardiovascular: Reports as per HPI Respiratory: Reports as per HPI Gastrointestinal: Reports as per HPI Genitourinary: Reports as per HPI Musculoskeletal: Reports as per HPI Skin/Breast: Reports as per HPI Reports as per HPI Psychiatric: Reports as per HPI Endocrine: Reports as per HPI Hematologic/Lymphatic: Reports as per HPI Allergic/Immunologic: Reports as per HPI Mental Status Exam Mental Status Exam Narrative: Pt is alert and oriented; behavior is cooperative and calm; dressed in casual attire; mood is described as depressed ; eye contact appropriate; Speech is normal rate, volume and prosody and not pressured; thought process is organized; Thought content is on tx; pt reports auditory hallucinations that tell her they are going to kill her; denies SI/HI/VH. Diagnostics Vital Signs (24Hr): Vital Signs - 24 hr 11/08/23 19:50 11/09/23 08:00 Temperature 97.7 F 97.6 F Pulse Rate 112 H 99 Respiratory Rate 18 16 Blood Pressure 133/82 105/55 L Pulse Oximetry 100 97 Oxygen Delivery Method Room Air Room Air BMI result Body Mass Index 31.9 Labs 11/07/23 07:30 Medications Medications Current Medications Acetaminophen (Acetaminophen 325 Mg Tablet) 650 mg PO Q6H PRN PRN Reason: Headache/Pain Mild Scale (1-3) Last Admin: 11/07/23 21:58 Dose: 650 mg Al Hydroxide/Mg Hydroxide (Magnesium Hydrox/Alum Hydrox 30 Ml Oral.Susp) 30 ml PO Q6H PRN PRN Reason: Heartburn/Nausea Last Admin: 11/07/23 19:05 Dose: 30 ml Benztropine Mesylate (Benztropine Mesylate 1 Mg Tablet) 2 mg PO TID [facility] Last Admin: 11/09/23 09:05 Dose: 2 mg Clonazepam (Clonazepam 1 Mg Tablet) 1 mg PO DAILY@1700 [facility] Last Admin: 11/08/23 17:12 Dose: 1 mg Clozapine (Clozapine 25 Mg Tablet) 125 mg PO DAILY@1400 [facility] Last Admin: 11/08/23 13:08 Dose: 125 mg Clozapine (Clozapine 100 Mg Tablet) 250 mg PO BEDTIME [facility] Last Admin: 11/08/23 20:42 Dose: 250 mg Docusate Sodium (Docusate Sodium 100 Mg Capsule) 100 mg PO BID [facility] Last Admin: 11/09/23 09:04 Dose: 100 mg Folic Acid (Folic Acid 1 Mg Tablet) 1 mg PO DAILY [facility] Last Admin: 11/09/23 09:05 Dose: 1 mg Haloperidol Lactate (Haloperidol Lactate Oral Conc 10 Mg/5 Ml Oral.Conc) 10 mg PO BID PRN PRN Reason: Agitation Last Admin: 11/08/23 20:51 Dose: 10 mg Hydroxyzine HCl (Hydroxyzine Hcl 25 Mg Tablet) 25 mg PO Q6H PRN PRN Reason: Anxiety Loratadine (Loratadine 10 Mg Tablet) 10 mg PO DAILY [facility] Last Admin: 11/09/23 09:04 Dose: 10 mg Magnesium Hydroxide (Milk Of Magnesia 30 Ml Oral.Susp) 30 ml PO DAILY PRN PRN Reason: Constipation Magnesium Oxide (Magnesium Oxide 400 Mg Tablet) 400 mg PO DAILY [facility] Last Admin: 11/09/23 09:04 Dose: 400 mg Multivitamins/Vitamin C (Multivitamin Tablet) 1 tab PO DAILY [facility] Last Admin: 11/09/23 09:04 Dose: 1 tab Nicotine Polacrilex (Nicotine Polacrilex 2 Mg Gum) 2 mg BUCCAL Q2H PRN PRN Reason: Nicotine Cravings Non-Formulary Medication (Dimethyl Fumarate) 120 mg PO BID [facility] Omeprazole (Omeprazole 20 Mg Capsule.Dr) 20 mg PO DAILY [facility] Last Admin: 11/09/23 09:03 Dose: 20 mg Thyroid (Thyroid,Pork 30 Mg Tablet) 60 mg PO DAILY [facility] Last Admin: 11/09/23 09:05 Dose: 60 mg Allergies Allergies Allergy/AdvReac Type Severity Reaction Status Date / Time Pork/Porcine Containing Allergy Unknown RASH Verified 11/07/23 13:03 Products [PORK/PORCINE CONTAINING PRODUCTS] citalopram Allergy Unknown Verified 10/17/23 02:24 trazodone Allergy Unknown Verified 10/17/23 02:24 ALPHA LIPOIC ACID Allergy Unknown Uncoded 03/24/24 02:24 FOREST NURSERY WORKER-3 THYROID TOXICITY Allergy Unknown Uncoded 10/17/23 02:24 Assessment & Plan Assessment & Plan (1) Schizoaffective disorder: Status: Acute Code(s): F25.9 - Schizoaffective disorder, unspecified Plan Presents with command hallucinations, paranoia, residential setting and adherent with medications. Unclear if there are any additional stressors. Need to clarify [facility] order details i.e. medications available and dose ranges. With that in mind will not make any medication changes. 11/07: Pt reports hearing more voices prior to coming to the hospital. She reports voices are telling her that someone is going to kill her. She denies SI/HI. She reports feeling anxious because of voices but also reports medication changes helped and feels better than when she came here. We discussed constipation- which she denies given combination of high dose cogentin with clozapine. She reports sleeping well. 11/08: Pt presents guarded; she reports feeling depressed . Pt reports auditory hallucinations at this time; pt stated, I'm still having suicidal thoughts. The voices tell me they want to kill me . Pt reports she does not want to harm herself. pt denies HI/VH. Waiting for [facility] docuements. Patient educated on: diagnosis and medication risk/benefits Informed Consent: understands and further education needed Reason for continued inpatient stay Substantial Risk for: med/psych decompensation Time Spent With Patient Time: Total time managing care of this patient today _20___ minutes.
[2023-11-09] MEDS: cloZAPine 25 MG TABLET 125 MG PO (14:22)
[2023-11-09] MEDS: clonazePAM 1 MG TABLET PO (16:35)
[2023-11-09 19:55] VITALS: BP 110/65; PULSE 103; RESP 16; TEMP 36.9; O2SAT 97
[2023-11-09] MEDS: cloZAPine 100 MG TABLET 250 MG PO (20:16)
[2023-11-09] MEDS: Haloperidol Lactate Oral Conc 10 MG/5 ML ORAL.CONC PO (20:17)
[2023-11-10 06:00] VITALS: BP 115/56; PULSE 98; RESP 20; TEMP 36.4; O2SAT 96
[2023-11-10] MEDS: Folic Acid 1 MG TABLET PO (08:27)
[2023-11-10] MEDS: Magnesium Oxide 400 MG TABLET PO (08:27)
[2023-11-10] MEDS: Omeprazole 20 MG CAPSULE.DR PO (08:27)
[2023-11-10] MEDS: Multivitamin TABLET 1 TAB PO (08:27)
[2023-11-10] MEDS: Thyroid,Pork 30 MG TABLET 60 MG PO (08:27)
[2023-11-10] MEDS: Benztropine Mesylate 1 MG TABLET 2 MG PO ×3 (08:27→20:37)
[2023-11-10] MEDS: Docusate Sodium 100 MG CAPSULE PO ×2 (08:27→20:37)
[2023-11-10] MEDS: Loratadine 10 MG TABLET PO (08:27)
--- NOTE | 2023-11-10 09:43 | P.PNPSI_ITS ---
Subjective Subjective Date of Service: 11/10/23 Reason For Visit: Unspecified anxiety disorder Subjective Notes: Conditional Voluntary Interim History: Reviewed with Dr. Louis. Pt stated I feel better than when I came in here. The voices are quieter . Pt presents with slight persistent tremor in both hands; pt reports I usually shake but cogentin and magnesium help ;discussed propanolol;risks/benefits reviewed. Pt started on propanolol 10mg PO TID. Pt denies SI/HI/VH. Medication Compliance: Yes Side effects from medications: No Attending Groups: No Review of Systems Constitutional: Reports as per HPI Eyes: Reports as per HPI Reports as per HPI Cardiovascular: Reports as per HPI Respiratory: Reports as per HPI Gastrointestinal: Reports as per HPI Musculoskeletal: Reports as per HPI Skin/Breast: Reports as per HPI Reports as per HPI Psychiatric: Reports as per HPI Endocrine: Reports as per HPI Hematologic/Lymphatic: Reports as per HPI Allergic/Immunologic: Reports as per HPI Mental Status Exam Mental Status Exam Narrative: Pt is alert and oriented; behavior is cooperative and calm; dressed in casual attire; mood is described as better ; eye contact appropriate; Speech is normal rate, volume and prosody and not pressured; thought process is organized; Thought content is on tx; pt reports auditory hallucinations have decreased; denies SI/HI/VH. Diagnostics Vital Signs (24Hr): Vital Signs - 24 hr 11/09/23 19:55 11/10/23 06:00 Temperature 98.5 F 97.6 F Pulse Rate 103 H 98 Respiratory Rate 16 20 Blood Pressure 110/65 115/56 L Pulse Oximetry 97 96 Oxygen Delivery Method Room Air Room Air BMI result Body Mass Index 31.9 Labs 11/07/23 07:30 Medications Medications Current Medications Acetaminophen (Acetaminophen 325 Mg Tablet) 650 mg PO Q6H PRN PRN Reason: Headache/Pain Mild Scale (1-3) Last Admin: 11/07/23 21:58 Dose: 650 mg Al Hydroxide/Mg Hydroxide (Magnesium Hydrox/Alum Hydrox 30 Ml Oral.Susp) 30 ml PO Q6H PRN PRN Reason: Heartburn/Nausea Last Admin: 11/07/23 19:05 Dose: 30 ml Benztropine Mesylate (Benztropine Mesylate 1 Mg Tablet) 2 mg PO TID [facility] Last Admin: 11/10/23 08:27 Dose: 2 mg Clonazepam (Clonazepam 1 Mg Tablet) 1 mg PO DAILY@1700 [facility] Last Admin: 11/09/23 16:35 Dose: 1 mg Clozapine (Clozapine 25 Mg Tablet) 125 mg PO DAILY@1400 [facility] Last Admin: 11/09/23 14:22 Dose: 125 mg Clozapine (Clozapine 100 Mg Tablet) 250 mg PO BEDTIME [facility] Last Admin: 11/09/23 20:16 Dose: 250 mg Docusate Sodium (Docusate Sodium 100 Mg Capsule) 100 mg PO BID [facility] Last Admin: 11/10/23 08:27 Dose: 100 mg Folic Acid (Folic Acid 1 Mg Tablet) 1 mg PO DAILY [facility] Last Admin: 11/10/23 08:27 Dose: 1 mg Haloperidol Lactate (Haloperidol Lactate Oral Conc 10 Mg/5 Ml Oral.Conc) 10 mg PO BID PRN PRN Reason: Agitation Last Admin: 11/09/23 20:17 Dose: 10 mg Hydroxyzine HCl (Hydroxyzine Hcl 25 Mg Tablet) 25 mg PO Q6H PRN PRN Reason: Anxiety Loratadine (Loratadine 10 Mg Tablet) 10 mg PO DAILY [facility] Last Admin: 11/10/23 08:27 Dose: 10 mg Magnesium Hydroxide (Milk Of Magnesia 30 Ml Oral.Susp) 30 ml PO DAILY PRN PRN Reason: Constipation Magnesium Oxide (Magnesium Oxide 400 Mg Tablet) 400 mg PO DAILY [facility] Last Admin: 11/10/23 08:27 Dose: 400 mg Multivitamins/Vitamin C (Multivitamin Tablet) 1 tab PO DAILY [facility] Last Admin: 11/10/23 08:27 Dose: 1 tab Nicotine Polacrilex (Nicotine Polacrilex 2 Mg Gum) 2 mg BUCCAL Q2H PRN PRN Reason: Nicotine Cravings Non-Formulary Medication (Dimethyl Fumarate) 120 mg PO BID [facility] Omeprazole (Omeprazole 20 Mg Capsule.Dr) 20 mg PO DAILY [facility] Last Admin: 11/10/23 08:27 Dose: 20 mg Thyroid (Thyroid,Pork 30 Mg Tablet) 60 mg PO DAILY [facility] Last Admin: 11/10/23 08:27 Dose: 60 mg Allergies Allergies Allergy/AdvReac Type Severity Reaction Status Date / Time Pork/Porcine Containing Allergy Unknown RASH Verified 11/07/23 13:03 Products [PORK/PORCINE CONTAINING PRODUCTS] citalopram Allergy Unknown Verified 10/17/23 02:24 trazodone Allergy Unknown Verified 10/17/23 02:24 ALPHA LIPOIC ACID Allergy Unknown Uncoded 10/17/23 02:24 OSTEOPATHIC PHYSICIAN-3 THYROID TOXICITY Allergy Unknown Uncoded 10/17/23 02:24 Assessment & Plan Assessment & Plan (1) Schizoaffective disorder: Status: Acute Code(s): F25.9 - Schizoaffective disorder, unspecified Plan Presents with command hallucinations, paranoia, [facility] setting and adherent with medications. Unclear if there are any additional stressors. Need to clarify [facility] order details i.e. medications available and dose ranges. With that in mind will not make any medication changes. 11/07: Pt reports hearing more voices prior to coming to the hospital. She reports voices are telling her that someone is going to kill her. She denies SI/HI. She reports feeling anxious because of voices but also reports medication changes helped and feels better than when she came here. We discussed constipation- which she denies given combination of high dose cogentin with clozapine. She reports sleeping well. 11/08: Pt presents guarded; she reports feeling depressed . Pt reports auditory hallucinations at this time; pt stated, I'm still having suicidal thoughts. The voices tell me they want to kill me . Pt reports she does not want to harm herself. pt denies HI/VH. Waiting for [facility] documents. 11/09: Pt stated I feel better than when I came in here. The voices are quieter . Pt presents with slight persistent tremor in both hands; pt reports I usually shake but cogentin and magnesium help ;discussed propanolol;risks/benefits reviewed. Pt started on propanolol 10mg PO TID. Pt denies SI/HI/VH. Patient educated on: diagnosis and medication risk/benefits Informed Consent: understands Reason for continued inpatient stay Substantial Risk for: med/psych decompensation Time Spent With Patient Time: Total time managing care of this patient today _20___ minutes.
[2023-11-10] MEDS: cloZAPine 25 MG TABLET 125 MG PO (14:04)
[2023-11-10] MEDS: Haloperidol Lactate Oral Conc 10 MG/5 ML ORAL.CONC PO (14:56)
[2023-11-10] MEDS: clonazePAM 1 MG TABLET PO (17:41)
[2023-11-10 19:35] VITALS: BP 138/76; RESP 18; TEMP 36.6; O2SAT 98
[2023-11-10] MEDS: cloZAPine 100 MG TABLET 250 MG PO (20:37)
[2023-11-10 20:39] VITALS: BP 133/81; PULSE 132
[2023-11-10] MEDS: Propranolol HCL 10 MG TABLET PO (20:39)
[2023-11-10] MEDS: Acetaminophen 325 MG TABLET 650 MG PO (21:23)
[2023-11-11 07:00] VITALS: BMI 32.0
[2023-11-11 08:00] VITALS: BP 92/51; PULSE 118; RESP 12; TEMP 36.4; O2SAT 98
--- NOTE | 2023-11-11 08:03 | HO.PSYCHPN ---
Subjective Subjective Date of Service: 11/11/23 Reason For Visit: Unspecified anxiety disorder Subjective Notes: Conditional Voluntary Interim History: Reviewed with Dr. Louis. Keeping to self. Guarded. Pt reports feeling anxious and depressed today; pt stated, the voices are telling me again that they can kill me. It was better yesterday . Pt denies SI/HI/VH. [employer] order documents were received. Message out to patient's outpatient psychiatrist; waiting for call back. Medication Compliance: Yes Side effects from medications: No Attending Groups: No Review of Systems Constitutional: Reports as per HPI Eyes: Reports as per HPI Reports as per HPI Cardiovascular: Reports as per HPI Respiratory: Reports as per HPI Gastrointestinal: Reports as per HPI Musculoskeletal: Reports as per HPI Skin/Breast: Reports as per HPI Reports as per HPI Psychiatric: Reports as per HPI Endocrine: Reports as per HPI Hematologic/Lymphatic: Reports as per HPI Allergic/Immunologic: Reports as per HPI Mental Status Exam Mental Status Exam Narrative: Pt is alert and oriented; behavior is cooperative and calm; dressed in casual attire; mood is described as anxious ; eye contact appropriate; Speech is normal rate, volume and prosody and not pressured; thought process is organized; Thought content is on tx; pt reports auditory hallucinations have decreased but continue to state they will harm her; denies SI/HI/VH. Diagnostics Vital Signs (24Hr): Vital Signs - 24 hr 11/10/23 19:35 11/10/23 20:39 Temperature 98 F Pulse Rate 132 H Respiratory Rate 18 Blood Pressure 138/76 133/81 Pulse Oximetry 98 Oxygen Delivery Method Room Air BMI result Body Mass Index 31.9 Labs 11/07/23 07:30 Medications Medications Current Medications Acetaminophen (Acetaminophen 325 Mg Tablet) 650 mg PO Q6H PRN PRN Reason: Headache/Pain Mild Scale (1-3) Last Admin: 11/10/23 21:23 Dose: 650 mg Al Hydroxide/Mg Hydroxide (Magnesium Hydrox/Alum Hydrox 30 Ml Oral.Susp) 30 ml PO Q6H PRN PRN Reason: Heartburn/Nausea Last Admin: 11/07/23 19:05 Dose: 30 ml Benztropine Mesylate (Benztropine Mesylate 1 Mg Tablet) 2 mg PO TID [facility] Last Admin: 11/10/23 20:37 Dose: 2 mg Clonazepam (Clonazepam 1 Mg Tablet) 1 mg PO DAILY@1700 [facility] Last Admin: 11/10/23 17:41 Dose: 1 mg Clozapine (Clozapine 25 Mg Tablet) 125 mg PO DAILY@1400 [facility] Last Admin: 11/10/23 14:04 Dose: 125 mg Clozapine (Clozapine 100 Mg Tablet) 250 mg PO BEDTIME [facility] Last Admin: 11/10/23 20:37 Dose: 250 mg Docusate Sodium (Docusate Sodium 100 Mg Capsule) 100 mg PO BID [facility] Last Admin: 11/10/23 20:37 Dose: 100 mg Folic Acid (Folic Acid 1 Mg Tablet) 1 mg PO DAILY [facility] Last Admin: 11/10/23 08:27 Dose: 1 mg Haloperidol Lactate (Haloperidol Lactate Oral Conc 10 Mg/5 Ml Oral.Conc) 10 mg PO BID PRN PRN Reason: Agitation Last Admin: 11/10/23 14:56 Dose: 10 mg Hydroxyzine HCl (Hydroxyzine Hcl 25 Mg Tablet) 25 mg PO Q6H PRN PRN Reason: Anxiety Loratadine (Loratadine 10 Mg Tablet) 10 mg PO DAILY [facility] Last Admin: 11/10/23 08:27 Dose: 10 mg Magnesium Hydroxide (Milk Of Magnesia 30 Ml Oral.Susp) 30 ml PO DAILY PRN PRN Reason: Constipation Magnesium Oxide (Magnesium Oxide 400 Mg Tablet) 400 mg PO DAILY [facility] Last Admin: 11/10/23 08:27 Dose: 400 mg Multivitamins/Vitamin C (Multivitamin Tablet) 1 tab PO DAILY [facility] Last Admin: 11/10/23 08:27 Dose: 1 tab Nicotine Polacrilex (Nicotine Polacrilex 2 Mg Gum) 2 mg BUCCAL Q2H PRN PRN Reason: Nicotine Cravings Non-Formulary Medication (Dimethyl Fumarate) 120 mg PO BID [facility] Omeprazole (Omeprazole 20 Mg Capsule.Dr) 20 mg PO DAILY [facility] Last Admin: 11/10/23 08:27 Dose: 20 mg Propranolol HCl (Propranolol Hcl 10 Mg Tablet) 10 mg PO TID [facility]; Protocol Last Admin: 11/10/23 20:39 Dose: 10 mg Thyroid (Thyroid,Pork 30 Mg Tablet) 60 mg PO DAILY [facility] Last Admin: 11/10/23 08:27 Dose: 60 mg Allergies Allergies Allergy/AdvReac Type Severity Reaction Status Date / Time Pork/Porcine Containing Allergy Unknown RASH Verified 11/07/23 13:03 Products [PORK/PORCINE CONTAINING PRODUCTS] citalopram Allergy Unknown Verified 10/17/23 02:24 trazodone Allergy Unknown Verified 10/17/23 02:24 ALPHA LIPOIC ACID Allergy Unknown Uncoded 10/17/23 02:24 STEAM SHOVEL OPERATING ENGINEER-3 THYROID TOXICITY Allergy Unknown Uncoded 10/17/23 02:24 Assessment & Plan Assessment & Plan (1) Schizoaffective disorder: Status: Acute Code(s): F25.9 - Schizoaffective disorder, unspecified Plan Presents with command hallucinations, paranoia, [facility] setting and adherent with medications. Unclear if there are any additional stressors. Need to clarify [facility] order details i.e. medications available and dose ranges. With that in mind will not make any medication changes. 11/07: Pt reports hearing more voices prior to coming to the hospital. She reports voices are telling her that someone is going to kill her. She denies SI/HI. She reports feeling anxious because of voices but also reports medication changes helped and feels better than when she came here. We discussed constipation- which she denies given combination of high dose cogentin with clozapine. She reports sleeping well. 11/08: Pt presents guarded; she reports feeling depressed . Pt reports auditory hallucinations at this time; pt stated, I'm still having suicidal thoughts. The voices tell me they want to kill me . Pt reports she does not want to harm herself. pt denies HI/VH. Waiting for [facility] documents. 11/09: Pt stated I feel better than when I came in here. The voices are quieter . Pt presents with slight persistent tremor in both hands; pt reports I usually shake but cogentin and magnesium help ;discussed propanolol;risks/benefits reviewed. Pt started on propanolol 10mg PO TID. Pt denies SI/HI/VH. 11/10: Keeping to self. Guarded. Pt reports feeling anxious and depressed today; pt stated, the voices are telling me again that they can kill me. It was better yesterday . Pt denies SI/HI/VH. [facility] order documents were received. Last Invega Sustenna injection was on 11/05/23. Last Haldol decanoate injection was 10/29/23. Message out to patient's outpatient psychiatrist; waiting for call back. Patient educated on: diagnosis and medication risk/benefits Informed Consent: understands Reason for continued inpatient stay Substantial Risk for: med/psych decompensation Time Spent With Patient Time: Total time managing care of this patient today __20__ minutes.
[2023-11-11] MEDS: Benztropine Mesylate 1 MG TABLET 2 MG PO ×3 (08:52→20:32)
[2023-11-11] MEDS: Omeprazole 20 MG CAPSULE.DR PO (08:52)
[2023-11-11] MEDS: Loratadine 10 MG TABLET PO (08:54)
[2023-11-11] MEDS: Magnesium Oxide 400 MG TABLET PO (08:54)
[2023-11-11] MEDS: Docusate Sodium 100 MG CAPSULE PO ×2 (08:54→20:32)
[2023-11-11] MEDS: Thyroid,Pork 30 MG TABLET 60 MG PO (08:54)
[2023-11-11] MEDS: Folic Acid 1 MG TABLET PO (08:54)
[2023-11-11 10:29] VITALS: BP 101/62; PULSE 113
[2023-11-11] MEDS: Multivitamin TABLET 1 TAB PO (10:29)
[2023-11-11] MEDS: Propranolol HCL 10 MG TABLET PO ×3 (10:29→20:32)
[2023-11-11] MEDS: Haloperidol Lactate Oral Conc 10 MG/5 ML ORAL.CONC PO ×2 (10:32→21:32)
--- NOTE | 2023-11-11 11:55 | PC.NURSE ---
vd call from [facility] spoke to Lili. Lili confirmed with Visiting nurse Ani [phone] last Haldol Dec injection of 100 mg was administered 10/29/2023.
[2023-11-11] MEDS: cloZAPine 25 MG TABLET 125 MG PO (14:57)
[2023-11-11 15:55] VITALS: BP 110/92; PULSE 98
[2023-11-11] MEDS: clonazePAM 1 MG TABLET PO (17:13)
[2023-11-11 20:25] VITALS: BP 102/61; PULSE 98; RESP 16; TEMP 36.6; O2SAT 98
[2023-11-11 20:32] VITALS: BP 102/61; PULSE 98
[2023-11-11] MEDS: cloZAPine 100 MG TABLET 250 MG PO (20:32)
[2023-11-11] MEDS: A and D Ointment 56.7 GM TUBE 1 APPL TOPICAL (21:32)
[2023-11-12 05:04] LABS: Clozapine (Clozaril) 647 mcg/L; Norclozapine 261 mcg/L (25-400)
[2023-11-12 07:55] VITALS: BP 129/60; PULSE 88; RESP 12; TEMP 36.6; O2SAT 95
[2023-11-12 08:53] VITALS: BP 129/88; PULSE 88
[2023-11-12] MEDS: Magnesium Oxide 400 MG TABLET PO (08:53)
[2023-11-12] MEDS: Multivitamin TABLET 1 TAB PO (08:53)
[2023-11-12] MEDS: Propranolol HCL 10 MG TABLET PO ×2 (08:53→20:23)
[2023-11-12] MEDS: Docusate Sodium 100 MG CAPSULE PO ×2 (08:54→20:23)
[2023-11-12] MEDS: Thyroid,Pork 30 MG TABLET 60 MG PO (08:54)
[2023-11-12] MEDS: Loratadine 10 MG TABLET PO (08:54)
[2023-11-12] MEDS: Omeprazole 20 MG CAPSULE.DR PO (08:54)
[2023-11-12] MEDS: Benztropine Mesylate 1 MG TABLET 2 MG PO ×3 (08:54→20:23)
[2023-11-12] MEDS: Folic Acid 1 MG TABLET PO (08:55)
--- NOTE | 2023-11-12 09:06 | P.PNPSI_ITS ---
Subjective Subjective Date of Service: 11/12/23 Reason For Visit: Unspecified anxiety disorder Subjective Notes: Conditional Voluntary Interim History: Reviewed with Dr. Louis. Keeping to self. Guarded. Pt reports feeling depressed today; pt stated, I don't know why I feel this way . Pt denies SI/HI/VH/AH at this time. Patient to receive Haldol decanoate 100mg IM today; last IM was 10/29/23 per [facility]. Message out to patient's outpatient psychiatrist; waiting for call back. Medication Compliance: Yes Side effects from medications: No Attending Groups: No Review of Systems Constitutional: Reports as per HPI Eyes: Reports as per HPI Reports as per HPI Cardiovascular: Reports as per HPI Respiratory: Reports as per HPI Gastrointestinal: Reports as per HPI Musculoskeletal: Reports as per HPI Skin/Breast: Reports as per HPI Reports as per HPI Psychiatric: Reports as per HPI Endocrine: Reports as per HPI Hematologic/Lymphatic: Reports as per HPI Allergic/Immunologic: Reports as per HPI Mental Status Exam Mental Status Exam Narrative: Pt is alert and oriented; behavior is cooperative and calm. guarded; dressed in casual attire; mood is described as depressed ; eye contact appropriate; Speech is normal rate, volume and prosody and not pressured; thought process is organized; Thought content is on tx; denies SI/HI/VH/AH. Diagnostics Vital Signs (24Hr): Vital Signs - 24 hr 11/11/23 10:29 11/11/23 15:55 11/11/23 20:25 Temperature 97.8 F Pulse Rate 113 H 98 98 Respiratory Rate 16 Blood Pressure 101/62 110/92 H 102/61 Pulse Oximetry 98 Oxygen Delivery Method Room Air 11/11/23 20:32 11/12/23 07:55 11/12/23 08:53 Temperature 97.8 F Pulse Rate 98 88 88 Respiratory Rate 12 Blood Pressure 102/61 129/60 129/88 Pulse Oximetry 95 Oxygen Delivery Method Room Air BMI result Body Mass Index 32.0 Labs 11/07/23 07:30 Labs: Laboratory Results - last 48 hr 11/09/23 08:07 Clozapine 647 Norclozapine 261 Medications Medications Current Medications Acetaminophen (Acetaminophen 325 Mg Tablet) 650 mg PO Q6H PRN PRN Reason: Headache/Pain Mild Scale (1-3) Last Admin: 11/10/23 21:23 Dose: 650 mg Al Hydroxide/Mg Hydroxide (Magnesium Hydrox/Alum Hydrox 30 Ml Oral.Susp) 30 ml PO Q6H PRN PRN Reason: Heartburn/Nausea Last Admin: 11/07/23 19:05 Dose: 30 ml Benztropine Mesylate (Benztropine Mesylate 1 Mg Tablet) 2 mg PO TID [facility] Last Admin: 11/12/23 08:54 Dose: 2 mg Clonazepam (Clonazepam 1 Mg Tablet) 1 mg PO DAILY@1700 [facility] Last Admin: 11/11/23 17:13 Dose: 1 mg Clozapine (Clozapine 25 Mg Tablet) 125 mg PO DAILY@1400 [facility] Last Admin: 11/11/23 14:57 Dose: 125 mg Clozapine (Clozapine 100 Mg Tablet) 250 mg PO BEDTIME [facility] Last Admin: 11/11/23 20:32 Dose: 250 mg Docusate Sodium (Docusate Sodium 100 Mg Capsule) 100 mg PO BID [facility] Last Admin: 11/12/23 08:54 Dose: 100 mg Folic Acid (Folic Acid 1 Mg Tablet) 1 mg PO DAILY [facility] Last Admin: 11/12/23 08:55 Dose: 1 mg Haloperidol Lactate (Haloperidol Lactate Oral Conc 10 Mg/5 Ml Oral.Conc) 10 mg PO BID PRN PRN Reason: Agitation Last Admin: 11/11/23 21:32 Dose: 10 mg Hydroxyzine HCl (Hydroxyzine Hcl 25 Mg Tablet) 25 mg PO Q6H PRN PRN Reason: Anxiety Loratadine (Loratadine 10 Mg Tablet) 10 mg PO DAILY [facility] Last Admin: 11/12/23 08:54 Dose: 10 mg Magnesium Hydroxide (Milk Of Magnesia 30 Ml Oral.Susp) 30 ml PO DAILY PRN PRN Reason: Constipation Magnesium Oxide (Magnesium Oxide 400 Mg Tablet) 400 mg PO DAILY [facility] Last Admin: 11/12/23 08:53 Dose: 400 mg Multivitamins/Vitamin C (Multivitamin Tablet) 1 tab PO DAILY [facility] Last Admin: 11/12/23 08:53 Dose: 1 tab Nicotine Polacrilex (Nicotine Polacrilex 2 Mg Gum) 2 mg BUCCAL Q2H PRN PRN Reason: Nicotine Cravings Non-Formulary Medication (Dimethyl Fumarate) 120 mg PO BID [facility] Omeprazole (Omeprazole 20 Mg Capsule.Dr) 20 mg PO DAILY [facility] Last Admin: 11/12/23 08:54 Dose: 20 mg Propranolol HCl (Propranolol Hcl 10 Mg Tablet) 10 mg PO TID [facility]; Protocol Last Admin: 11/12/23 08:53 Dose: 10 mg Thyroid (Thyroid,Pork 30 Mg Tablet) 60 mg PO DAILY [facility] Last Admin: 11/12/23 08:54 Dose: 60 mg Vitamin A/Vitamin D (A And D Ointment 56.7 Gm Tube) 1 appl TOPICAL BID PRN; Protocol PRN Reason: Dry Skin Last Admin: 11/11/23 21:32 Dose: 1 appl Allergies Allergies Allergy/AdvReac Type Severity Reaction Status Date / Time Pork/Porcine Containing Allergy Unknown RASH Verified 11/07/23 13:03 Products [PORK/PORCINE CONTAINING PRODUCTS] citalopram Allergy Unknown Verified 10/17/23 02:24 trazodone Allergy Unknown Verified 10/17/23 02:24 ALPHA LIPOIC ACID Allergy Unknown Uncoded 10/17/23 02:24 BRICK WHEELER-3 THYROID TOXICITY Allergy Unknown Uncoded 10/17/23 02:24 Assessment & Plan Assessment & Plan (1) Schizoaffective disorder: Status: Acute Code(s): F25.9 - Schizoaffective disorder, unspecified Plan Presents with command hallucinations, paranoia, senior living setting and adherent with medications. Unclear if there are any additional stressors. Need to clarify [facility] order details i.e. medications available and dose ranges. With that in mind will not make any medication changes. 11/07: Pt reports hearing more voices prior to coming to the hospital. She reports voices are telling her that someone is going to kill her. She denies SI/HI. She reports feeling anxious because of voices but also reports medication changes helped and feels better than when she came here. We discussed constipation- which she denies given combination of high dose cogentin with clozapine. She reports sleeping well. 11/08: Pt presents guarded; she reports feeling depressed . Pt reports auditory hallucinations at this time; pt stated, I'm still having suicidal thoughts. The voices tell me they want to kill me . Pt reports she does not want to harm herself. pt denies HI/VH. Waiting for [facility] documents. 11/09: Pt stated I feel better than when I came in here. The voices are quieter . Pt presents with slight persistent tremor in both hands; pt reports I usually shake but cogentin and magnesium help ;discussed propanolol;risks/benefits reviewed. Pt started on propanolol 10mg PO TID. Pt denies SI/HI/VH. 11/10: Keeping to self. Guarded. Pt reports feeling anxious and depressed today; pt stated, the voices are telling me again that they can kill me. It was better yesterday . Pt denies SI/HI/VH. [employer] order documents were received. Last Invega Sustenna injection was on 11/05/23. Last Haldol decanoate injection was 10/29/23. Message out to patient's outpatient psychiatrist; waiting for call back. 11/11: Keeping to self. Guarded. Pt reports feeling depressed today; pt stated, I don't know why I feel this way . Pt denies SI/HI/VH/AH at this time. Patient to receive Haldol decanoate 100mg IM today; last IM was 10/29/23 per [facility]. Message out to patient's outpatient psychiatrist; waiting for call back. Patient educated on: diagnosis and medication risk/benefits Informed Consent: understands Reason for continued inpatient stay Substantial Risk for: med/psych decompensation Time Spent With Patient Time: Total time managing care of this patient today _20___ minutes.
[2023-11-12] MEDS: cloZAPine 25 MG TABLET 125 MG PO (14:09)
[2023-11-12 16:08] VITALS: BP 107/56; PULSE 92; RESP 16; O2SAT 98
[2023-11-12] MEDS: clonazePAM 1 MG TABLET PO (17:19)
[2023-11-12] MEDS: Haloperidol Decanoate 50 MG/ML VIAL 100 MG IM (17:24)
--- NOTE | 2023-11-12 17:30 | PC.NURSE ---
Haldol Decanoate 100mg, IM, administered to R deltoid on this date. Patient tolerated procedure well.
[2023-11-12 20:00] VITALS: BP 115/64; PULSE 93; RESP 16; TEMP 37; O2SAT 97
[2023-11-12] MEDS: cloZAPine 100 MG TABLET 250 MG PO (20:22)
[2023-11-12 20:23] VITALS: BP 115/64; PULSE 93
[2023-11-13 08:00] VITALS: BP 120/76; PULSE 97; RESP 18; TEMP 36.5; O2SAT 99
[2023-11-13] MEDS: Multivitamin TABLET 1 TAB PO (08:19)
[2023-11-13] MEDS: Omeprazole 20 MG CAPSULE.DR PO (08:19)
[2023-11-13 08:20] VITALS: BP 120/76; PULSE 99
[2023-11-13] MEDS: Docusate Sodium 100 MG CAPSULE PO ×2 (08:20→20:16)
[2023-11-13] MEDS: Folic Acid 1 MG TABLET PO (08:20)
[2023-11-13] MEDS: Benztropine Mesylate 1 MG TABLET 2 MG PO ×3 (08:20→20:16)
[2023-11-13] MEDS: Magnesium Oxide 400 MG TABLET PO (08:20)
[2023-11-13] MEDS: Propranolol HCL 10 MG TABLET PO ×3 (08:20→20:17)
[2023-11-13] MEDS: Loratadine 10 MG TABLET PO (08:20)
--- NOTE | 2023-11-13 09:10 | P.PNPSI_ITS ---
Subjective Subjective Date of Service: 11/13/23 Reason For Visit: Unspecified anxiety disorder Subjective Notes: Conditional Voluntary Interim History: Patient was seen and discussed in rounds today. Records and plans were reviewed. She continues to be flat and withdrawn. Compliant with medications. Some auditory hallucination reported. No complaints or side effects. It was noted that she had not received her Invega Sustenna because the visiting nurse did not have a syringe!. She did receive the Haldol injection. No changes were made. Eating and sleeping adequately Review of Systems Review of Systems Yes all other systems are reviewed and are negative Mental Status Exam Mental Status Exam Narrative: In today's visit she is alert, oriented and pleasant. Normal speech. Good eye contact. Affect is constricted. Moderate depression present. No SI. No AVH. No delusions. Able to move all limbs. No musculoskeletal difficulties. Judgment is intact. Cognitively intact. Diagnostics Vital Signs (24Hr): Vital Signs - 24 hr 11/12/23 16:08 11/12/23 20:00 11/12/23 20:23 Temperature 98.6 F Pulse Rate 92 93 93 Respiratory Rate 16 16 Blood Pressure 107/56 L 115/64 115/64 Pulse Oximetry 98 97 Oxygen Delivery Method Room Air Room Air 11/13/23 08:00 11/13/23 08:20 Temperature 97.7 F Pulse Rate 97 99 Respiratory Rate 18 Blood Pressure 120/76 120/76 Pulse Oximetry 99 Oxygen Delivery Method Room Air BMI result Body Mass Index 32.0 Labs 11/07/23 07:30 Labs: Laboratory Results - last 48 hr 11/09/23 08:07 Clozapine 647 Norclozapine 261 Medications Medications Current Medications Acetaminophen (Acetaminophen 325 Mg Tablet) 650 mg PO Q6H PRN PRN Reason: Headache/Pain Mild Scale (1-3) Last Admin: 11/10/23 21:23 Dose: 650 mg Al Hydroxide/Mg Hydroxide (Magnesium Hydrox/Alum Hydrox 30 Ml Oral.Susp) 30 ml PO Q6H PRN PRN Reason: Heartburn/Nausea Last Admin: 11/07/23 19:05 Dose: 30 ml Benztropine Mesylate (Benztropine Mesylate 1 Mg Tablet) 2 mg PO TID [facility] Last Admin: 11/13/23 08:20 Dose: 2 mg Clonazepam (Clonazepam 1 Mg Tablet) 1 mg PO DAILY@1700 [facility] Last Admin: 11/12/23 17:19 Dose: 1 mg Clozapine (Clozapine 25 Mg Tablet) 125 mg PO DAILY@1400 [facility] Last Admin: 11/12/23 14:09 Dose: 125 mg Clozapine (Clozapine 100 Mg Tablet) 250 mg PO BEDTIME [facility] Last Admin: 11/12/23 20:22 Dose: 250 mg Docusate Sodium (Docusate Sodium 100 Mg Capsule) 100 mg PO BID [facility] Last Admin: 11/13/23 08:20 Dose: 100 mg Folic Acid (Folic Acid 1 Mg Tablet) 1 mg PO DAILY [facility] Last Admin: 11/13/23 08:20 Dose: 1 mg Haloperidol Decanoate (Haloperidol Decanoate 50 Mg/Ml Vial) 100 mg IM Q14D [facility] Last Admin: 11/12/23 17:24 Dose: 100 mg Haloperidol Lactate (Haloperidol Lactate Oral Conc 10 Mg/5 Ml Oral.Conc) 10 mg PO BID PRN PRN Reason: Agitation Last Admin: 11/11/23 21:32 Dose: 10 mg Hydroxyzine HCl (Hydroxyzine Hcl 25 Mg Tablet) 25 mg PO Q6H PRN PRN Reason: Anxiety Loratadine (Loratadine 10 Mg Tablet) 10 mg PO DAILY [facility] Last Admin: 11/13/23 08:20 Dose: 10 mg Magnesium Hydroxide (Milk Of Magnesia 30 Ml Oral.Susp) 30 ml PO DAILY PRN PRN Reason: Constipation Magnesium Oxide (Magnesium Oxide 400 Mg Tablet) 400 mg PO DAILY [facility] Last Admin: 11/13/23 08:20 Dose: 400 mg Multivitamins/Vitamin C (Multivitamin Tablet) 1 tab PO DAILY [facility] Last Admin: 11/13/23 08:19 Dose: 1 tab Nicotine Polacrilex (Nicotine Polacrilex 2 Mg Gum) 2 mg BUCCAL Q2H PRN PRN Reason: Nicotine Cravings Pt Own (Dimethyl Fumarate 120 Mg ( Tecfidera) Capsule, Delayed Release(Dr/Ec)) 120 mg PO BID [facility] Stop: 11/19/23 09:01 Last Admin: 11/13/23 08:53 Dose: 120 mg Pt Own (Dimethyl Fumarate 240 Mg ( Tecfidera) Capsule, Delayed Release(Dr/Ec)) 240 mg PO BID [facility] Omeprazole (Omeprazole 20 Mg Capsule.Dr) 20 mg PO DAILY [facility] Last Admin: 11/13/23 08:19 Dose: 20 mg Propranolol HCl (Propranolol Hcl 10 Mg Tablet) 10 mg PO TID [facility]; Protocol Last Admin: 11/13/23 08:20 Dose: 10 mg Thyroid (Thyroid,Pork 30 Mg Tablet) 60 mg PO DAILY [facility] Vitamin A/Vitamin D (A And D Ointment 56.7 Gm Tube) 1 appl TOPICAL BID PRN; Protocol PRN Reason: Dry Skin Last Admin: 11/11/23 21:32 Dose: 1 appl Allergies Allergies Allergy/AdvReac Type Severity Reaction Status Date / Time Pork/Porcine Containing Allergy Unknown RASH Verified 11/07/23 13:03 Products [PORK/PORCINE CONTAINING PRODUCTS] citalopram Allergy Unknown Verified 10/17/23 02:24 trazodone Allergy Unknown Verified 10/17/23 02:24 ALPHA LIPOIC ACID Allergy Unknown Uncoded 10/17/23 02:24 LAW ENFORCEMENT OFFICER-3 THYROID TOXICITY Allergy Unknown Uncoded 10/17/23 02:24 Assessment & Plan Assessment & Plan (1) Schizoaffective disorder: Status: Acute Code(s): F25.9 - Schizoaffective disorder, unspecified Plan Presents with command hallucinations, paranoia, halfway setting and adherent with medications. Unclear if there are any additional stressors. Need to clarify [facility] order details i.e. medications available and dose ranges. With that in mind will not make any medication changes. 11/07: Pt reports hearing more voices prior to coming to the hospital. She reports voices are telling her that someone is going to kill her. She denies SI/HI. She reports feeling anxious because of voices but also reports medication changes helped and feels better than when she came here. We discussed constipation- which she denies given combination of high dose cogentin with clozapine. She reports sleeping well. 11/08: Pt presents guarded; she reports feeling depressed . Pt reports auditory hallucinations at this time; pt stated, I'm still having suicidal thoughts. The voices tell me they want to kill me . Pt reports she does not want to harm herself. pt denies HI/VH. Waiting for [facility] documents. 11/09: Pt stated I feel better than when I came in here. The voices are quieter . Pt presents with slight persistent tremor in both hands; pt reports I usually shake but cogentin and magnesium help ;discussed propanolol;risks/benefits reviewed. Pt started on propanolol 10mg PO TID. Pt denies SI/HI/VH. 11/10: Keeping to self. Guarded. Pt reports feeling anxious and depressed today; pt stated, the voices are telling me again that they can kill me. It was better yesterday . Pt denies SI/HI/VH. [facility] order documents were received. Last Invega Sustenna injection was on 11/05/23. Last Haldol decanoate injection was 10/29/23. Message out to patient's outpatient psychiatrist; waiting for call back. 11/11: Keeping to self. Guarded. Pt reports feeling depressed today; pt stated, I don't know why I feel this way . Pt denies SI/HI/VH/AH at this time. Patient to receive Haldol decanoate 100mg IM today; last IM was 10/29/23 per [facility]. Message out to patient's outpatient psychiatrist; waiting for call back. 11/13/2023: Continue current regimen and plans Reason for continued inpatient stay Substantial Risk for: med/psych decompensation Time Spent With Patient Time: Total time managing care of this patient today ____ minutes.
[2023-11-13] MEDS: Thyroid,Pork 30 MG TABLET 60 MG PO (11:10)
[2023-11-13] MEDS: Haloperidol Lactate Oral Conc 10 MG/5 ML ORAL.CONC PO ×2 (11:29→22:23)
[2023-11-13] MEDS: cloZAPine 25 MG TABLET 125 MG PO (13:57)
[2023-11-13 14:58] VITALS: BP 105/58; PULSE 91
[2023-11-13] MEDS: clonazePAM 1 MG TABLET PO (17:21)
[2023-11-13 20:10] VITALS: BP 131/90; PULSE 108; RESP 16; TEMP 36.5; O2SAT 100
[2023-11-13] MEDS: cloZAPine 100 MG TABLET 250 MG PO (20:15)
--- NOTE | 2023-11-13 22:24 | PC.NURSE ---
Rida was given Haldol PO prn for interalized agitation.
[2023-11-14 08:00] VITALS: BP 103/60; PULSE 83; RESP 18; TEMP 36.4; O2SAT 98
[2023-11-14 08:12] LABS: Neutrophils Absolute Auto 2.9 x10*3/uL (2.0-8.3)
[2023-11-14 08:39] VITALS: BP 103/60; PULSE 83
[2023-11-14] MEDS: Benztropine Mesylate 1 MG TABLET 2 MG PO ×3 (08:39→20:47)
[2023-11-14] MEDS: Omeprazole 20 MG CAPSULE.DR PO (08:39)
[2023-11-14] MEDS: Magnesium Oxide 400 MG TABLET PO (08:39)
[2023-11-14] MEDS: Propranolol HCL 10 MG TABLET PO ×3 (08:39→20:48)
[2023-11-14] MEDS: Loratadine 10 MG TABLET PO (08:39)
[2023-11-14] MEDS: Thyroid,Pork 30 MG TABLET 60 MG PO (08:39)
[2023-11-14] MEDS: Multivitamin TABLET 1 TAB PO (08:40)
[2023-11-14] MEDS: Docusate Sodium 100 MG CAPSULE PO ×2 (08:40→20:47)
[2023-11-14] MEDS: Folic Acid 1 MG TABLET PO (08:40)
--- NOTE | 2023-11-14 09:19 | HO.PSYCHPN ---
Subjective Subjective Date of Service: 11/14/23 Reason For Visit: Unspecified anxiety disorder Subjective Notes: Conditional Voluntary Interim History: Patient was seen and discussed in rounds today. Records and plans were reviewed. She continues to have some SI but feels safe here. Decreased auditory hallucinations which are command in nature. No reports of dizziness and her orthostatic blood pressure checks were decreased to Q shift. She continues to be internally preoccupied. Eating and sleeping well. No complaints or side effects. No changes were made today Review of Systems Review of Systems Yes all other systems are reviewed and are negative Mental Status Exam Mental Status Exam Narrative: In today's visit she is alert, oriented and pleasant. Normal speech. Good eye contact. Affect is constricted. Moderate depression present. No SI. No AVH. No delusions. Able to move all limbs. No musculoskeletal difficulties. Judgment is intact. Cognitively intact. Diagnostics Vital Signs (24Hr): Vital Signs - 24 hr 11/13/23 14:58 11/13/23 20:10 11/14/23 08:00 Temperature 97.7 F 97.5 F Pulse Rate 91 108 H 83 Respiratory Rate 16 18 Blood Pressure 105/58 L 131/90 H 103/60 Pulse Oximetry 100 98 Oxygen Delivery Method Room Air Room Air 11/14/23 08:39 Temperature Pulse Rate 83 Respiratory Rate Blood Pressure 103/60 Pulse Oximetry Oxygen Delivery Method BMI result Body Mass Index 32.0 Labs 11/07/23 07:30 Labs: Laboratory Results - last 48 hr 11/14/23 07:54 Absolute Neuts (auto) 2.9 Medications Medications Current Medications Acetaminophen (Acetaminophen 325 Mg Tablet) 650 mg PO Q6H PRN PRN Reason: Headache/Pain Mild Scale (1-3) Last Admin: 11/10/23 21:23 Dose: 650 mg Al Hydroxide/Mg Hydroxide (Magnesium Hydrox/Alum Hydrox 30 Ml Oral.Susp) 30 ml PO Q6H PRN PRN Reason: Heartburn/Nausea Last Admin: 11/07/23 19:05 Dose: 30 ml Benztropine Mesylate (Benztropine Mesylate 1 Mg Tablet) 2 mg PO TID [facility] Last Admin: 11/14/23 08:39 Dose: 2 mg Clonazepam (Clonazepam 1 Mg Tablet) 1 mg PO DAILY@1700 [facility] Last Admin: 11/13/23 17:21 Dose: 1 mg Clozapine (Clozapine 25 Mg Tablet) 125 mg PO DAILY@1400 [facility] Last Admin: 11/13/23 13:57 Dose: 125 mg Clozapine (Clozapine 100 Mg Tablet) 250 mg PO BEDTIME [facility] Last Admin: 11/13/23 20:15 Dose: 250 mg Docusate Sodium (Docusate Sodium 100 Mg Capsule) 100 mg PO BID [facility] Last Admin: 11/14/23 08:40 Dose: 100 mg Folic Acid (Folic Acid 1 Mg Tablet) 1 mg PO DAILY [facility] Last Admin: 11/14/23 08:40 Dose: 1 mg Haloperidol Decanoate (Haloperidol Decanoate 50 Mg/Ml Vial) 100 mg IM Q14D [facility] Last Admin: 11/12/23 17:24 Dose: 100 mg Haloperidol Lactate (Haloperidol Lactate Oral Conc 10 Mg/5 Ml Oral.Conc) 10 mg PO BID PRN PRN Reason: Agitation Last Admin: 11/13/23 22:23 Dose: 10 mg Hydroxyzine HCl (Hydroxyzine Hcl 25 Mg Tablet) 25 mg PO Q6H PRN PRN Reason: Anxiety Loratadine (Loratadine 10 Mg Tablet) 10 mg PO DAILY [facility] Last Admin: 11/14/23 08:39 Dose: 10 mg Magnesium Hydroxide (Milk Of Magnesia 30 Ml Oral.Susp) 30 ml PO DAILY PRN PRN Reason: Constipation Magnesium Oxide (Magnesium Oxide 400 Mg Tablet) 400 mg PO DAILY [facility] Last Admin: 11/14/23 08:39 Dose: 400 mg Multivitamins/Vitamin C (Multivitamin Tablet) 1 tab PO DAILY [facility] Last Admin: 11/14/23 08:40 Dose: 1 tab Nicotine Polacrilex (Nicotine Polacrilex 2 Mg Gum) 2 mg BUCCAL Q2H PRN PRN Reason: Nicotine Cravings Pt Own (Dimethyl Fumarate 120 Mg ( Tecfidera) Capsule, Delayed Release(Dr/Ec)) 120 mg PO BID [facility] Stop: 11/19/23 09:01 Last Admin: 11/13/23 20:17 Dose: 120 mg Pt Own (Dimethyl Fumarate 240 Mg ( Tecfidera) Capsule, Delayed Release(Dr/Ec)) 240 mg PO BID [facility] Omeprazole (Omeprazole 20 Mg Capsule.Dr) 20 mg PO DAILY [facility] Last Admin: 11/14/23 08:39 Dose: 20 mg Propranolol HCl (Propranolol Hcl 10 Mg Tablet) 10 mg PO TID [facility]; Protocol Last Admin: 11/14/23 08:39 Dose: 10 mg Thyroid (Thyroid,Pork 30 Mg Tablet) 60 mg PO DAILY [facility] Last Admin: 11/14/23 08:39 Dose: 60 mg Vitamin A/Vitamin D (A And D Ointment 56.7 Gm Tube) 1 appl TOPICAL BID PRN; Protocol PRN Reason: Dry Skin Last Admin: 11/11/23 21:32 Dose: 1 appl Allergies Allergies Allergy/AdvReac Type Severity Reaction Status Date / Time Pork/Porcine Containing Allergy Unknown RASH Verified 11/07/23 13:03 Products [PORK/PORCINE CONTAINING PRODUCTS] citalopram Allergy Unknown Verified 10/17/23 02:24 trazodone Allergy Unknown Verified 10/17/23 02:24 ALPHA LIPOIC ACID Allergy Unknown Uncoded 10/17/23 02:24 COMPENSATION BUSINESS PARTNER-3 THYROID TOXICITY Allergy Unknown Uncoded 10/17/23 02:24 Assessment & Plan Assessment & Plan (1) Schizoaffective disorder: Status: Acute Code(s): F25.9 - Schizoaffective disorder, unspecified Plan Presents with command hallucinations, paranoia, correction setting and adherent with medications. Unclear if there are any additional stressors. Need to clarify [facility] order details i.e. medications available and dose ranges. With that in mind will not make any medication changes. 11/07: Pt reports hearing more voices prior to coming to the hospital. She reports voices are telling her that someone is going to kill her. She denies SI/HI. She reports feeling anxious because of voices but also reports medication changes helped and feels better than when she came here. We discussed constipation- which she denies given combination of high dose cogentin with clozapine. She reports sleeping well. 11/08: Pt presents guarded; she reports feeling depressed . Pt reports auditory hallucinations at this time; pt stated, I'm still having suicidal thoughts. The voices tell me they want to kill me . Pt reports she does not want to harm herself. pt denies HI/VH. Waiting for [facility] documents. 11/09: Pt stated I feel better than when I came in here. The voices are quieter . Pt presents with slight persistent tremor in both hands; pt reports I usually shake but cogentin and magnesium help ;discussed propanolol;risks/benefits reviewed. Pt started on propanolol 10mg PO TID. Pt denies SI/HI/VH. 11/10: Keeping to self. Guarded. Pt reports feeling anxious and depressed today; pt stated, the voices are telling me again that they can kill me. It was better yesterday . Pt denies SI/HI/VH. [facility] order documents were received. Last Invega Sustenna injection was on 11/05/23. Last Haldol decanoate injection was 10/29/23. Message out to patient's outpatient psychiatrist; waiting for call back. 11/11: Keeping to self. Guarded. Pt reports feeling depressed today; pt stated, I don't know why I feel this way . Pt denies SI/HI/VH/AH at this time. Patient to receive Haldol decanoate 100mg IM today; last IM was 10/29/23 per [facility]. Message out to patient's outpatient psychiatrist; waiting for call back. 11/13/2023: Continue current regimen and plans 11/14/2023: Continue current regimen and plans Reason for continued inpatient stay Substantial Risk for: med/psych decompensation Time Spent With Patient Time: Total time managing care of this patient today ____ minutes.
[2023-11-14] MEDS: cloZAPine 25 MG TABLET 125 MG PO (14:07)
[2023-11-14 15:10] VITALS: BP 117/71; PULSE 103
[2023-11-14] MEDS: clonazePAM 1 MG TABLET PO (17:11)
[2023-11-14 19:52] VITALS: BP 112/73; PULSE 112; RESP 16; TEMP 36.7; O2SAT 98
[2023-11-14] MEDS: cloZAPine 100 MG TABLET 250 MG PO (20:47)
[2023-11-14 20:48] VITALS: BP 112/73; PULSE 112
[2023-11-14] MEDS: Haloperidol Lactate Oral Conc 10 MG/5 ML ORAL.CONC PO (20:48)
[2023-11-15 08:00] VITALS: BP 104/59; PULSE 90; RESP 18; TEMP 36.9; O2SAT 97
[2023-11-15] MEDS: Thyroid,Pork 30 MG TABLET 60 MG PO (08:44)
[2023-11-15 08:45] VITALS: BP 104/59; PULSE 90
[2023-11-15] MEDS: Propranolol HCL 10 MG TABLET PO ×2 (08:45→20:57)
[2023-11-15] MEDS: Folic Acid 1 MG TABLET PO (08:45)
[2023-11-15] MEDS: Docusate Sodium 100 MG CAPSULE PO ×2 (08:45→20:58)
[2023-11-15] MEDS: Loratadine 10 MG TABLET PO (08:45)
[2023-11-15] MEDS: Multivitamin TABLET 1 TAB PO (08:45)
[2023-11-15] MEDS: Magnesium Oxide 400 MG TABLET PO (08:45)
[2023-11-15] MEDS: Omeprazole 20 MG CAPSULE.DR PO (08:45)
[2023-11-15] MEDS: Benztropine Mesylate 1 MG TABLET 2 MG PO ×3 (08:45→20:57)
--- NOTE | 2023-11-15 08:56 | P.PNPSI_ITS ---
Subjective Subjective Date of Service: 11/15/23 Reason For Visit: Unspecified anxiety disorder Subjective Notes: Conditional Voluntary Interim History: Reviewed with Dr. Louis. keeping to self. guarded. pt reports feeling anxious and depressed today; pt stated, I don't know why I feel this way. The haldol helps with my anxiety and voices . Pt reports decreased auditory hallucinations; continues to hear them tell her they will kill her. pt denies HI/VH. Pt reports suicidal ideation to over dose on medication; pt stated, I don't know why I'm suicidal . Medication Compliance: Yes Side effects from medications: No Attending Groups: No Review of Systems Constitutional: Reports as per HPI Eyes: Reports as per HPI Reports as per HPI Cardiovascular: Reports as per HPI Respiratory: Reports as per HPI Gastrointestinal: Reports as per HPI Musculoskeletal: Reports as per HPI Skin/Breast: Reports as per HPI Reports as per HPI Psychiatric: Reports as per HPI Endocrine: Reports as per HPI Hematologic/Lymphatic: Reports as per HPI Allergic/Immunologic: Reports as per HPI Mental Status Exam Mental Status Exam Narrative: Pt is alert and oriented; behavior is cooperative and calm. guarded; dressed in casual attire; mood is described as depressed ; eye contact appropriate; Speech is normal rate, volume and prosody and not pressured; thought process is organized; Thought content is on tx; denies HI/VH. Pt reports suicidal ideation with plan to overdose on medication. Pt reports decreased AH; hear them tell her, they will hurt her. Diagnostics Vital Signs (24Hr): Vital Signs - 24 hr 11/14/23 15:10 11/14/23 19:52 11/14/23 20:48 Temperature 98.0 F Pulse Rate 103 H 112 H 112 H Respiratory Rate 16 Blood Pressure 117/71 112/73 112/73 Pulse Oximetry 98 Oxygen Delivery Method Room Air 11/15/23 08:45 Temperature Pulse Rate 90 Respiratory Rate Blood Pressure 104/59 L Pulse Oximetry Oxygen Delivery Method BMI result Body Mass Index 32.0 Labs 11/07/23 07:30 Labs: Laboratory Results - last 48 hr 11/14/23 07:54 Absolute Neuts (auto) 2.9 Medications Medications Current Medications Acetaminophen (Acetaminophen 325 Mg Tablet) 650 mg PO Q6H PRN PRN Reason: Headache/Pain Mild Scale (1-3) Last Admin: 11/10/23 21:23 Dose: 650 mg Al Hydroxide/Mg Hydroxide (Magnesium Hydrox/Alum Hydrox 30 Ml Oral.Susp) 30 ml PO Q6H PRN PRN Reason: Heartburn/Nausea Last Admin: 11/07/23 19:05 Dose: 30 ml Benztropine Mesylate (Benztropine Mesylate 1 Mg Tablet) 2 mg PO TID [facility] Last Admin: 11/15/23 08:45 Dose: 2 mg Clonazepam (Clonazepam 1 Mg Tablet) 1 mg PO DAILY@1700 [facility] Last Admin: 11/14/23 17:11 Dose: 1 mg Clozapine (Clozapine 25 Mg Tablet) 125 mg PO DAILY@1400 [facility] Last Admin: 11/14/23 14:07 Dose: 125 mg Clozapine (Clozapine 100 Mg Tablet) 250 mg PO BEDTIME [facility] Last Admin: 11/14/23 20:47 Dose: 250 mg Docusate Sodium (Docusate Sodium 100 Mg Capsule) 100 mg PO BID [facility] Last Admin: 11/15/23 08:45 Dose: 100 mg Folic Acid (Folic Acid 1 Mg Tablet) 1 mg PO DAILY [facility] Last Admin: 11/15/23 08:45 Dose: 1 mg Haloperidol Decanoate (Haloperidol Decanoate 50 Mg/Ml Vial) 100 mg IM Q14D [facility] Last Admin: 11/12/23 17:24 Dose: 100 mg Haloperidol Lactate (Haloperidol Lactate Oral Conc 10 Mg/5 Ml Oral.Conc) 10 mg PO BID PRN PRN Reason: Agitation Last Admin: 11/14/23 20:48 Dose: 10 mg Hydroxyzine HCl (Hydroxyzine Hcl 25 Mg Tablet) 25 mg PO Q6H PRN PRN Reason: Anxiety Loratadine (Loratadine 10 Mg Tablet) 10 mg PO DAILY [facility] Last Admin: 11/15/23 08:45 Dose: 10 mg Magnesium Hydroxide (Milk Of Magnesia 30 Ml Oral.Susp) 30 ml PO DAILY PRN PRN Reason: Constipation Magnesium Oxide (Magnesium Oxide 400 Mg Tablet) 400 mg PO DAILY [facility] Last Admin: 11/15/23 08:45 Dose: 400 mg Multivitamins/Vitamin C (Multivitamin Tablet) 1 tab PO DAILY [facility] Last Admin: 11/15/23 08:45 Dose: 1 tab Nicotine Polacrilex (Nicotine Polacrilex 2 Mg Gum) 2 mg BUCCAL Q2H PRN PRN Reason: Nicotine Cravings Pt Own (Dimethyl Fumarate 120 Mg ( Tecfidera) Capsule, Delayed Release(Dr/Ec)) 120 mg PO BID [facility] Stop: 11/19/23 09:01 Last Admin: 11/15/23 08:46 Dose: 120 mg Pt Own (Dimethyl Fumarate 240 Mg ( Tecfidera) Capsule, Delayed Release(Dr/Ec)) 240 mg PO BID [facility] Omeprazole (Omeprazole 20 Mg Capsule.Dr) 20 mg PO DAILY [facility] Last Admin: 11/15/23 08:45 Dose: 20 mg Propranolol HCl (Propranolol Hcl 10 Mg Tablet) 10 mg PO TID [facility]; Protocol Last Admin: 11/15/23 08:45 Dose: 10 mg Thyroid (Thyroid,Pork 30 Mg Tablet) 60 mg PO DAILY [facility] Last Admin: 11/15/23 08:44 Dose: 60 mg Vitamin A/Vitamin D (A And D Ointment 56.7 Gm Tube) 1 appl TOPICAL BID PRN; Protocol PRN Reason: Dry Skin Last Admin: 11/11/23 21:32 Dose: 1 appl Allergies Allergies Allergy/AdvReac Type Severity Reaction Status Date / Time Pork/Porcine Containing Allergy Unknown RASH Verified 11/07/23 13:03 Products [PORK/PORCINE CONTAINING PRODUCTS] citalopram Allergy Unknown Verified 10/17/23 02:24 trazodone Allergy Unknown Verified 10/17/23 02:24 ALPHA LIPOIC ACID Allergy Unknown Uncoded 10/17/23 02:24 DATA COLLECTION TECHNICIAN-3 THYROID TOXICITY Allergy Unknown Uncoded 10/17/23 02:24 Assessment & Plan Assessment & Plan (1) Schizoaffective disorder: Status: Acute Code(s): F25.9 - Schizoaffective disorder, unspecified Plan Presents with command hallucinations, paranoia, half-way setting and adherent with medications. Unclear if there are any additional stressors. Need to clarify [facility] order details i.e. medications available and dose ranges. With that in mind will not make any medication changes. 11/07: Pt reports hearing more voices prior to coming to the hospital. She reports voices are telling her that someone is going to kill her. She denies SI/HI. She reports feeling anxious because of voices but also reports medication changes helped and feels better than when she came here. We discussed constipation- which she denies given combination of high dose cogentin with clozapine. She reports sleeping well. 11/08: Pt presents guarded; she reports feeling depressed . Pt reports auditory hallucinations at this time; pt stated, I'm still having suicidal thoughts. The voices tell me they want to kill me . Pt reports she does not want to harm herself. pt denies HI/VH. Waiting for [facility] documents. 11/09: Pt stated I feel better than when I came in here. The voices are quieter . Pt presents with slight persistent tremor in both hands; pt reports I usually shake but cogentin and magnesium help ;discussed propanolol;risks/benefits reviewed. Pt started on propanolol 10mg PO TID. Pt denies SI/HI/VH. 11/10: Keeping to self. Guarded. Pt reports feeling anxious and depressed today; pt stated, the voices are telling me again that they can kill me. It was better yesterday . Pt denies SI/HI/VH. [facility] order documents were received. Last Invega Sustenna injection was on 11/05/23. Last Haldol decanoate injection was 10/29/23. Message out to patient's outpatient psychiatrist; waiting for call back. 11/11: Keeping to self. Guarded. Pt reports feeling depressed today; pt stated, I don't know why I feel this way . Pt denies SI/HI/VH/AH at this time. Patient to receive Haldol decanoate 100mg IM today; last IM was 10/29/23 per [facility]. Message out to patient's outpatient psychiatrist; waiting for call back. 11/13/2023: Continue current regimen and plans 11/14/2023: Continue current regimen and plans 11/14: keeping to self. guarded. pt reports feeling anxious and depressed today; pt stated, I don't know why I feel this way. The haldol helps with my anxiety and voices . Pt reports decreased auditory hallucinations; continues to hear them tell her they will kill her. pt denies HI/VH. Pt reports suicidal ideation to over dose on medication; pt stated, I don't know why I'm suicidal . Patient educated on: diagnosis and medication risk/benefits Informed Consent: understands Reason for continued inpatient stay Substantial Risk for: harm to self and med/psych decompensation Time Spent With Patient Time: Total time managing care of this patient today _20___ minutes.
[2023-11-15] MEDS: cloZAPine 25 MG TABLET 125 MG PO (14:31)
[2023-11-15 15:33] VITALS: BP 88/54
[2023-11-15] MEDS: Haloperidol Lactate Oral Conc 10 MG/5 ML ORAL.CONC PO ×2 (15:38→20:59)
[2023-11-15] MEDS: clonazePAM 1 MG TABLET PO (17:59)
[2023-11-15 18:04] LABS: Influenza A PCR NEGATIVE (Negative); Influenza B PCR NEGATIVE (Negative); Resp Syncy Virus RNA Qual PCR NEGATIVE (Negative); SARS COV2 PCR INHOUSE NEGATIVE (Negative)
[2023-11-15 20:54] VITALS: BP 119/75; PULSE 108; RESP 16; TEMP 36.5; O2SAT 99
[2023-11-15 20:57] VITALS: BP 119/75; PULSE 108
[2023-11-15] MEDS: cloZAPine 100 MG TABLET 250 MG PO (20:58)
[2023-11-16 07:59] VITALS: BP 109/63; PULSE 81; RESP 14; TEMP 36.7; O2SAT 96
--- NOTE | 2023-11-16 09:20 | P.PNPSI_ITS ---
Subjective Subjective Date of Service: 11/16/23 Reason For Visit: Unspecified anxiety disorder Subjective Notes: Conditional Voluntary Interim History: T/W and Dr. Louis met with patient. Patient reports feeling depressed today; she continues to report auditory hallucinations. Pt stated, the voices are telling me to kill myself by taking pills or throwing myself out of a window but I don't want to kill myself . Pt denies HI/VH. T/W spoke to patient's sister, Griselda, who reported patient's medication were messed up when she went to [facility] in August but she was fine before going to [facility] . Griselda to send home medication list. Medication Compliance: Yes Side effects from medications: No Attending Groups: No Review of Systems Constitutional: Reports as per HPI Eyes: Reports as per HPI Reports as per HPI Cardiovascular: Reports as per HPI Respiratory: Reports as per HPI Gastrointestinal: Reports as per HPI Musculoskeletal: Reports as per HPI Skin/Breast: Reports as per HPI Reports as per HPI Psychiatric: Reports as per HPI Endocrine: Reports as per HPI Hematologic/Lymphatic: Reports as per HPI Allergic/Immunologic: Reports as per HPI Mental Status Exam Mental Status Exam Narrative: Pt is alert and oriented; behavior is cooperative and calm. guarded; dressed in casual attire; mood is described as depressed ; eye contact appropriate; Speech is normal rate, volume and prosody and not pressured; thought process is organized; Thought content is on tx; denies HI/VH. Pt reports decreased AH. Diagnostics Vital Signs (24Hr): Vital Signs - 24 hr 11/15/23 15:33 11/15/23 20:54 11/15/23 20:57 Temperature 97.7 F Pulse Rate 108 H 108 H Respiratory Rate 16 Blood Pressure 88/54 L 119/75 119/75 Pulse Oximetry 99 Oxygen Delivery Method Room Air 11/16/23 07:59 Temperature 98.1 F Pulse Rate 81 Respiratory Rate 14 Blood Pressure 109/63 Pulse Oximetry 96 Oxygen Delivery Method Room Air BMI result Body Mass Index 32.0 Labs 11/07/23 07:30 Labs: Laboratory Results - last 48 hr 11/15/23 Unknown Influenza Type A (PCR) NEGATIVE Influenza Type B (PCR) NEGATIVE RSV RNA Qual (PCR) NEGATIVE SARS-CoV-2 RNA (RT-PCR) NEGATIVE Medications Medications Current Medications Acetaminophen (Acetaminophen 325 Mg Tablet) 650 mg PO Q6H PRN PRN Reason: Headache/Pain Mild Scale (1-3) Last Admin: 11/10/23 21:23 Dose: 650 mg Al Hydroxide/Mg Hydroxide (Magnesium Hydrox/Alum Hydrox 30 Ml Oral.Susp) 30 ml PO Q6H PRN PRN Reason: Heartburn/Nausea Last Admin: 11/07/23 19:05 Dose: 30 ml Benztropine Mesylate (Benztropine Mesylate 1 Mg Tablet) 2 mg PO TID [facility] Last Admin: 11/15/23 20:57 Dose: 2 mg Clonazepam (Clonazepam 1 Mg Tablet) 1 mg PO DAILY@1700 [facility] Last Admin: 11/15/23 17:59 Dose: 1 mg Clozapine (Clozapine 25 Mg Tablet) 125 mg PO DAILY@1400 [facility] Last Admin: 11/15/23 14:31 Dose: 125 mg Clozapine (Clozapine 100 Mg Tablet) 250 mg PO BEDTIME [facility] Last Admin: 11/15/23 20:58 Dose: 250 mg Docusate Sodium (Docusate Sodium 100 Mg Capsule) 100 mg PO BID [facility] Last Admin: 11/15/23 20:58 Dose: 100 mg Folic Acid (Folic Acid 1 Mg Tablet) 1 mg PO DAILY [facility] Last Admin: 11/15/23 08:45 Dose: 1 mg Haloperidol Decanoate (Haloperidol Decanoate 50 Mg/Ml Vial) 100 mg IM Q14D [facility] Last Admin: 11/12/23 17:24 Dose: 100 mg Haloperidol Lactate (Haloperidol Lactate Oral Conc 10 Mg/5 Ml Oral.Conc) 10 mg PO BID PRN PRN Reason: Agitation Last Admin: 11/15/23 20:59 Dose: 10 mg Hydroxyzine HCl (Hydroxyzine Hcl 25 Mg Tablet) 25 mg PO Q6H PRN PRN Reason: Anxiety Loratadine (Loratadine 10 Mg Tablet) 10 mg PO DAILY [facility] Last Admin: 11/15/23 08:45 Dose: 10 mg Magnesium Hydroxide (Milk Of Magnesia 30 Ml Oral.Susp) 30 ml PO DAILY PRN PRN Reason: Constipation Magnesium Oxide (Magnesium Oxide 400 Mg Tablet) 400 mg PO DAILY [facility] Last Admin: 11/15/23 08:45 Dose: 400 mg Multivitamins/Vitamin C (Multivitamin Tablet) 1 tab PO DAILY [facility] Last Admin: 11/15/23 08:45 Dose: 1 tab Nicotine Polacrilex (Nicotine Polacrilex 2 Mg Gum) 2 mg BUCCAL Q2H PRN PRN Reason: Nicotine Cravings Pt Own (Dimethyl Fumarate 120 Mg ( Tecfidera) Capsule, Delayed Release(Dr/Ec)) 120 mg PO BID [facility] Stop: 11/19/23 09:01 Last Admin: 11/15/23 20:59 Dose: 120 mg Pt Own (Dimethyl Fumarate 240 Mg ( Tecfidera) Capsule, Delayed Release(Dr/Ec)) 240 mg PO BID [facility] Omeprazole (Omeprazole 20 Mg Capsule.Dr) 20 mg PO DAILY [facility] Last Admin: 11/15/23 08:45 Dose: 20 mg Propranolol HCl (Propranolol Hcl 10 Mg Tablet) 10 mg PO TID [facility]; Protocol Last Admin: 11/15/23 20:57 Dose: 10 mg Thyroid (Thyroid,Pork 30 Mg Tablet) 60 mg PO DAILY [facility] Last Admin: 11/15/23 08:44 Dose: 60 mg Vitamin A/Vitamin D (A And D Ointment 56.7 Gm Tube) 1 appl TOPICAL BID PRN; Protocol PRN Reason: Dry Skin Last Admin: 11/11/23 21:32 Dose: 1 appl Allergies Allergies Allergy/AdvReac Type Severity Reaction Status Date / Time Pork/Porcine Containing Allergy Unknown RASH Verified 11/07/23 13:03 Products [PORK/PORCINE CONTAINING PRODUCTS] citalopram Allergy Unknown Verified 10/17/23 02:24 trazodone Allergy Unknown Verified 10/17/23 02:24 ALPHA LIPOIC ACID Allergy Unknown Uncoded 10/17/23 02:24 GENERAL I FARMWORKER-3 THYROID TOXICITY Allergy Unknown Uncoded 10/17/23 02:24 Assessment & Plan Assessment & Plan (1) Schizoaffective disorder: Status: Acute Code(s): F25.9 - Schizoaffective disorder, unspecified Plan Presents with command hallucinations, paranoia, nursing home setting and adherent with medications. Unclear if there are any additional stressors. Need to clarify [facility] order details i.e. medications available and dose ranges. With that in mind will not make any medication changes. 11/07: Pt reports hearing more voices prior to coming to the hospital. She reports voices are telling her that someone is going to kill her. She denies SI/HI. She reports feeling anxious because of voices but also reports medication changes helped and feels better than when she came here. We discussed constipation- which she denies given combination of high dose cogentin with clozapine. She reports sleeping well. 11/08: Pt presents guarded; she reports feeling depressed . Pt reports auditory hallucinations at this time; pt stated, I'm still having suicidal thoughts. The voices tell me they want to kill me . Pt reports she does not want to harm herself. pt denies HI/VH. Waiting for [facility] documents. 11/09: Pt stated I feel better than when I came in here. The voices are quieter . Pt presents with slight persistent tremor in both hands; pt reports I usually shake but cogentin and magnesium help ;discussed propanolol;risks/benefits reviewed. Pt started on propanolol 10mg PO TID. Pt denies SI/HI/VH. 11/10: Keeping to self. Guarded. Pt reports feeling anxious and depressed today; pt stated, the voices are telling me again that they can kill me. It was better yesterday . Pt denies SI/HI/VH. [facility] order documents were received. Last Invega Sustenna injection was on 11/05/23. Last Haldol decanoate injection was 10/29/23. Message out to patient's outpatient psychiatrist; waiting for call back. 11/11: Keeping to self. Guarded. Pt reports feeling depressed today; pt stated, I don't know why I feel this way . Pt denies SI/HI/VH/AH at this time. Patient to receive Haldol decanoate 100mg IM today; last IM was 10/29/23 per [facility]. Message out to patient's outpatient psychiatrist; waiting for call back. 11/13/2023: Continue current regimen and plans 11/14/2023: Continue current regimen and plans 11/14: keeping to self. guarded. pt reports feeling anxious and depressed today; pt stated, I don't know why I feel this way. The haldol helps with my anxiety and voices . Pt reports decreased auditory hallucinations; continues to hear them tell her they will kill her. pt denies HI/VH. Pt reports suicidal ideation to over dose on medication; pt stated, I don't know why I'm suicidal . 11/15: Patient reports feeling depressed today; she continues to report auditory hallucinations. Pt stated, the voices are telling me to kill myself by taking pills or throwing myself out of a window but I don't want to kill myself . Pt denies HI/VH. T/W spoke to patient's sister, Griselda, who reported patient's medication were messed up when she went to [facility] in August but she was fine before going to [facility] . Griselda to send home medication list Patient educated on: medication risk/benefits Informed Consent: understands Reason for continued inpatient stay Substantial Risk for: harm to self and med/psych decompensation Time Spent With Patient Time: Total time managing care of this patient today _20___ minutes.
[2023-11-16] MEDS: Thyroid,Pork 30 MG TABLET 60 MG PO (09:28)
[2023-11-16] MEDS: Docusate Sodium 100 MG CAPSULE PO ×2 (09:28→20:54)
[2023-11-16] MEDS: Benztropine Mesylate 1 MG TABLET 2 MG PO ×3 (09:28→20:56)
[2023-11-16 09:29] VITALS: BP 109/63; PULSE 81
[2023-11-16] MEDS: Magnesium Oxide 400 MG TABLET PO (09:29)
[2023-11-16] MEDS: Multivitamin TABLET 1 TAB PO (09:29)
[2023-11-16] MEDS: Loratadine 10 MG TABLET PO (09:29)
[2023-11-16] MEDS: Propranolol HCL 10 MG TABLET PO ×3 (09:29→20:54)
[2023-11-16] MEDS: Folic Acid 1 MG TABLET PO (09:29)
[2023-11-16] MEDS: Omeprazole 20 MG CAPSULE.DR PO (09:30)
[2023-11-16] MEDS: cloZAPine 25 MG TABLET 125 MG PO (14:13)
[2023-11-16 14:14] VITALS: BP 108/60; PULSE 105
[2023-11-16] MEDS: Acetaminophen 325 MG TABLET 650 MG PO (14:14)
--- NOTE | 2023-11-16 14:15 | PC.NURSE ---
per provider, OK to give tylenol for 10/10 pain
[2023-11-16] MEDS: clonazePAM 1 MG TABLET PO (16:47)
[2023-11-16 20:30] VITALS: BP 109/64; PULSE 102; RESP 16; TEMP 36.6; O2SAT 98
[2023-11-16 20:54] VITALS: BP 109/64; PULSE 102
[2023-11-16] MEDS: cloZAPine 100 MG TABLET 250 MG PO (20:55)
[2023-11-17 08:00] VITALS: BP 128/91; PULSE 82; RESP 14; TEMP 36.3; O2SAT 97
--- NOTE | 2023-11-17 09:00 | HO.PSYCHPN ---
Subjective Subjective Date of Service: 11/17/23 Reason For Visit: Unspecified anxiety disorder Subjective Notes: Conditional Voluntary Interim History: Reviewed with Dr. Louis. Patient reports feeling better than yesterday ; pt was not able to elaborate as to why she is feeling better. Pt stated, I'm still a little depressed ; pt denies SI/HI/VH/AH at this time. Continues to keep to self in room. Medication Compliance: Yes Side effects from medications: No Attending Groups: No Review of Systems Constitutional: Reports as per HPI Eyes: Reports as per HPI Reports as per HPI Cardiovascular: Reports as per HPI Respiratory: Reports as per HPI Gastrointestinal: Reports as per HPI Genitourinary: Reports as per HPI Musculoskeletal: Reports as per HPI Skin/Breast: Reports as per HPI Reports as per HPI Psychiatric: Reports as per HPI Endocrine: Reports as per HPI Hematologic/Lymphatic: Reports as per HPI Allergic/Immunologic: Reports as per HPI Mental Status Exam Mental Status Exam Narrative: Pt is alert and oriented; behavior is cooperative and calm. guarded; dressed in casual attire; mood is described as better but still a little depressed ; eye contact appropriate; Speech is normal rate, volume and prosody and not pressured; thought process is organized; Thought content is on tx; denies SI/HI/VH/AH today. Diagnostics Vital Signs (24Hr): Vital Signs - 24 hr 11/16/23 09:29 11/16/23 14:14 11/16/23 20:30 Temperature 97.9 F Pulse Rate 81 105 H 102 H Respiratory Rate 16 Blood Pressure 109/63 108/60 109/64 Pulse Oximetry 98 Oxygen Delivery Method Room Air 11/16/23 20:54 Temperature Pulse Rate 102 H Respiratory Rate Blood Pressure 109/64 Pulse Oximetry Oxygen Delivery Method BMI result Body Mass Index 32.0 Labs 11/07/23 07:30 Labs: Laboratory Results - last 48 hr 11/15/23 Unknown Influenza Type A (PCR) NEGATIVE Influenza Type B (PCR) NEGATIVE RSV RNA Qual (PCR) NEGATIVE SARS-CoV-2 RNA (RT-PCR) NEGATIVE Medications Medications Current Medications Acetaminophen (Acetaminophen 325 Mg Tablet) 650 mg PO Q6H PRN PRN Reason: Headache/Pain Mild Scale (1-3) Last Admin: 11/16/23 14:14 Dose: 650 mg Al Hydroxide/Mg Hydroxide (Magnesium Hydrox/Alum Hydrox 30 Ml Oral.Susp) 30 ml PO Q6H PRN PRN Reason: Heartburn/Nausea Last Admin: 11/07/23 19:05 Dose: 30 ml Benztropine Mesylate (Benztropine Mesylate 1 Mg Tablet) 2 mg PO TID [facility] Last Admin: 11/16/23 20:56 Dose: 2 mg Clonazepam (Clonazepam 1 Mg Tablet) 1 mg PO DAILY@1700 [facility] Last Admin: 11/16/23 16:47 Dose: 1 mg Clozapine (Clozapine 25 Mg Tablet) 125 mg PO DAILY@1400 [facility] Last Admin: 11/16/23 14:13 Dose: 125 mg Clozapine (Clozapine 100 Mg Tablet) 250 mg PO BEDTIME [facility] Last Admin: 11/16/23 20:55 Dose: 250 mg Docusate Sodium (Docusate Sodium 100 Mg Capsule) 100 mg PO BID [facility] Last Admin: 11/16/23 20:54 Dose: 100 mg Folic Acid (Folic Acid 1 Mg Tablet) 1 mg PO DAILY [facility] Last Admin: 11/16/23 09:29 Dose: 1 mg Haloperidol Decanoate (Haloperidol Decanoate 50 Mg/Ml Vial) 100 mg IM Q14D [facility] Last Admin: 11/12/23 17:24 Dose: 100 mg Haloperidol Lactate (Haloperidol Lactate Oral Conc 10 Mg/5 Ml Oral.Conc) 10 mg PO BID PRN PRN Reason: Agitation Last Admin: 11/15/23 20:59 Dose: 10 mg Hydroxyzine HCl (Hydroxyzine Hcl 25 Mg Tablet) 25 mg PO Q6H PRN PRN Reason: Anxiety Loratadine (Loratadine 10 Mg Tablet) 10 mg PO DAILY [facility] Last Admin: 11/16/23 09:29 Dose: 10 mg Magnesium Hydroxide (Milk Of Magnesia 30 Ml Oral.Susp) 30 ml PO DAILY PRN PRN Reason: Constipation Magnesium Oxide (Magnesium Oxide 400 Mg Tablet) 400 mg PO DAILY [facility] Last Admin: 11/16/23 09:29 Dose: 400 mg Multivitamins/Vitamin C (Multivitamin Tablet) 1 tab PO DAILY [facility] Last Admin: 11/16/23 09:29 Dose: 1 tab Nicotine Polacrilex (Nicotine Polacrilex 2 Mg Gum) 2 mg BUCCAL Q2H PRN PRN Reason: Nicotine Cravings Pt Own (Dimethyl Fumarate 120 Mg ( Tecfidera) Capsule, Delayed Release(Dr/Ec)) 120 mg PO BID [facility] Stop: 11/19/23 09:01 Last Admin: 11/16/23 20:58 Dose: 120 mg Pt Own (Dimethyl Fumarate 240 Mg ( Tecfidera) Capsule, Delayed Release(Dr/Ec)) 240 mg PO BID [facility] Omeprazole (Omeprazole 20 Mg Capsule.Dr) 20 mg PO DAILY [facility] Last Admin: 11/16/23 09:30 Dose: 20 mg Propranolol HCl (Propranolol Hcl 10 Mg Tablet) 10 mg PO TID [facility]; Protocol Last Admin: 11/16/23 20:54 Dose: 10 mg Thyroid (Thyroid,Pork 30 Mg Tablet) 60 mg PO DAILY [facility] Last Admin: 11/16/23 09:28 Dose: 60 mg Vitamin A/Vitamin D (A And D Ointment 56.7 Gm Tube) 1 appl TOPICAL BID PRN; Protocol PRN Reason: Dry Skin Last Admin: 11/11/23 21:32 Dose: 1 appl Allergies Allergies Allergy/AdvReac Type Severity Reaction Status Date / Time Pork/Porcine Containing Allergy Unknown RASH Verified 11/07/23 13:03 Products [PORK/PORCINE CONTAINING PRODUCTS] citalopram Allergy Unknown Verified 10/17/23 02:24 trazodone Allergy Unknown Verified 10/17/23 02:24 ALPHA LIPOIC ACID Allergy Unknown Uncoded 10/17/23 02:24 STORE GROUP MANAGER-3 THYROID TOXICITY Allergy Unknown Uncoded 10/17/23 02:24 Assessment & Plan Assessment & Plan (1) Schizoaffective disorder: Status: Acute Code(s): F25.9 - Schizoaffective disorder, unspecified Plan Presents with command hallucinations, paranoia, detention setting and adherent with medications. Unclear if there are any additional stressors. Need to clarify [facility] order details i.e. medications available and dose ranges. With that in mind will not make any medication changes. 11/07: Pt reports hearing more voices prior to coming to the hospital. She reports voices are telling her that someone is going to kill her. She denies SI/HI. She reports feeling anxious because of voices but also reports medication changes helped and feels better than when she came here. We discussed constipation- which she denies given combination of high dose cogentin with clozapine. She reports sleeping well. 11/08: Pt presents guarded; she reports feeling depressed . Pt reports auditory hallucinations at this time; pt stated, I'm still having suicidal thoughts. The voices tell me they want to kill me . Pt reports she does not want to harm herself. pt denies HI/VH. Waiting for [facility] documents. 11/09: Pt stated I feel better than when I came in here. The voices are quieter . Pt presents with slight persistent tremor in both hands; pt reports I usually shake but cogentin and magnesium help ;discussed propanolol;risks/benefits reviewed. Pt started on propanolol 10mg PO TID. Pt denies SI/HI/VH. 11/10: Keeping to self. Guarded. Pt reports feeling anxious and depressed today; pt stated, the voices are telling me again that they can kill me. It was better yesterday . Pt denies SI/HI/VH. [facility] order documents were received. Last Invega Sustenna injection was on 11/05/23. Last Haldol decanoate injection was 10/29/23. Message out to patient's outpatient psychiatrist; waiting for call back. 11/11: Keeping to self. Guarded. Pt reports feeling depressed today; pt stated, I don't know why I feel this way . Pt denies SI/HI/VH/AH at this time. Patient to receive Haldol decanoate 100mg IM today; last IM was 10/29/23 per [facility]. Message out to patient's outpatient psychiatrist; waiting for call back. 11/13/2023: Continue current regimen and plans 11/14/2023: Continue current regimen and plans 11/14: keeping to self. guarded. pt reports feeling anxious and depressed today; pt stated, I don't know why I feel this way. The haldol helps with my anxiety and voices . Pt reports decreased auditory hallucinations; continues to hear them tell her they will kill her. pt denies HI/VH. Pt reports suicidal ideation to over dose on medication; pt stated, I don't know why I'm suicidal . 11/15: Patient reports feeling depressed today; she continues to report auditory hallucinations. Pt stated, the voices are telling me to kill myself by taking pills or throwing myself out of a window but I don't want to kill myself . Pt denies HI/VH. T/W spoke to patient's sister, Griselda, who reported patient's medication were messed up when she went to [facility] in August but she was fine before going to [facility] . Griselda to send home medication list 11/16: Patient reports feeling better than yesterday ; pt was not able to elaborate as to why she is feeling better. Pt stated, I'm still a little depressed ; pt denies SI/HI/VH/AH at this time. Continues to keep to self in room. encouraged to attend groups. Patient educated on: diagnosis, medication risk/benefits and therapeutic strategies Informed Consent: understands Reason for continued inpatient stay Substantial Risk for: med/psych decompensation Time Spent With Patient Time: Total time managing care of this patient today _20___ minutes.
[2023-11-17] MEDS: Omeprazole 20 MG CAPSULE.DR PO (09:34)
[2023-11-17] MEDS: Loratadine 10 MG TABLET PO (09:34)
[2023-11-17] MEDS: Benztropine Mesylate 1 MG TABLET 2 MG PO ×3 (09:36→21:16)
[2023-11-17] MEDS: Magnesium Oxide 400 MG TABLET PO (09:36)
[2023-11-17] MEDS: Docusate Sodium 100 MG CAPSULE PO ×2 (09:36→21:16)
[2023-11-17 09:37] VITALS: BP 112/66; PULSE 93
[2023-11-17] MEDS: Propranolol HCL 10 MG TABLET PO ×3 (09:37→21:16)
[2023-11-17] MEDS: Folic Acid 1 MG TABLET PO (09:37)
[2023-11-17] MEDS: Multivitamin TABLET 1 TAB PO (09:37)
[2023-11-17] MEDS: Thyroid,Pork 30 MG TABLET 60 MG PO (09:43)
[2023-11-17] MEDS: Haloperidol Lactate Oral Conc 10 MG/5 ML ORAL.CONC PO (13:30)
[2023-11-17] MEDS: cloZAPine 25 MG TABLET 125 MG PO (14:05)
[2023-11-17 14:54] LABS: COVID-19 Test Negative (Negative); IDNOW Serial# 152EDE1D
[2023-11-17 15:25] VITALS: BP 121/82; PULSE 110; RESP 16; O2SAT 98
[2023-11-17 15:28] VITALS: BP 121/82; PULSE 110
[2023-11-17] MEDS: clonazePAM 1 MG TABLET PO (17:14)
[2023-11-17 20:30] VITALS: BP 110/80; PULSE 104; RESP 16; TEMP 36.1; O2SAT 98
[2023-11-17] MEDS: cloZAPine 100 MG TABLET 250 MG PO (21:16)
[2023-11-17] MEDS: Acetaminophen 325 MG TABLET 650 MG PO (23:15)
[2023-11-18] MEDS: Haloperidol Lactate Oral Conc 10 MG/5 ML ORAL.CONC PO (01:36)
[2023-11-18 09:17] VITALS: BP 132/78; PULSE 108; RESP 16; TEMP 36.5; O2SAT 99
[2023-11-18] MEDS: Thyroid,Pork 30 MG TABLET 60 MG PO (09:19)
[2023-11-18] MEDS: Docusate Sodium 100 MG CAPSULE PO ×2 (09:19→20:15)
[2023-11-18 09:20] VITALS: BP 132/78; PULSE 108
[2023-11-18] MEDS: Magnesium Oxide 400 MG TABLET PO (09:20)
[2023-11-18] MEDS: Propranolol HCL 10 MG TABLET PO ×3 (09:20→20:14)
[2023-11-18] MEDS: Multivitamin TABLET 1 TAB PO (09:20)
[2023-11-18] MEDS: Folic Acid 1 MG TABLET PO (09:21)
[2023-11-18] MEDS: Benztropine Mesylate 1 MG TABLET 2 MG PO ×3 (09:21→20:15)
[2023-11-18] MEDS: Omeprazole 20 MG CAPSULE.DR PO (09:21)
[2023-11-18] MEDS: Loratadine 10 MG TABLET PO (09:21)
--- NOTE | 2023-11-18 09:44 | P.PNPSI_ITS ---
Subjective Subjective Date of Service: 11/18/23 Reason For Visit: Unspecified anxiety disorder Subjective Notes: Conditional Voluntary Interim History: Reviewed with Dr. Louis. Staff reported pt was observed laying on bedroom floor. Pt reports feeling depressed today; pt stated, my voices told me to sleep on the floor and if not my heart would stop. I don't want to . Pt reports she feels she is getting better everyday . pt denies SI/HI/VH. Increase clozaril to 150mg PO daily. Medication Compliance: Yes Side effects from medications: No Attending Groups: No Review of Systems Constitutional: Reports as per HPI Eyes: Reports as per HPI Reports as per HPI Cardiovascular: Reports as per HPI Respiratory: Reports as per HPI Gastrointestinal: Reports as per HPI Musculoskeletal: Reports as per HPI Skin/Breast: Reports as per HPI Reports as per HPI Psychiatric: Reports as per HPI Endocrine: Reports as per HPI Hematologic/Lymphatic: Reports as per HPI Allergic/Immunologic: Reports as per HPI Mental Status Exam Mental Status Exam Narrative: Pt is alert and oriented; behavior is cooperative and calm. guarded; dressed in casual attire; mood is described as depressed ; eye contact appropriate; Speech is normal rate, volume and prosody and not pressured; thought process is organized; Thought content is on tx; denies SI/HI/VH. pt reports auditory hallucinations. Diagnostics Vital Signs (24Hr): Vital Signs - 24 hr 11/17/23 15:25 11/17/23 15:28 11/17/23 20:30 Temperature 97 F Pulse Rate 110 H 110 H 104 H Respiratory Rate 16 16 Blood Pressure 121/82 121/82 110/80 Pulse Oximetry 98 98 Oxygen Delivery Method Room Air Room Air 11/18/23 09:17 11/18/23 09:20 Temperature 97.7 F Pulse Rate 108 H 108 H Respiratory Rate 16 Blood Pressure 132/78 132/78 Pulse Oximetry 99 Oxygen Delivery Method Room Air BMI result Body Mass Index 32.0 Labs 11/07/23 07:30 Labs: Laboratory Results - last 48 hr 11/17/23 14:07 COVID-19 (GUY) Negative COVID-19 Clin Com See Note Medications Medications Current Medications Acetaminophen (Acetaminophen 325 Mg Tablet) 650 mg PO Q6H PRN PRN Reason: Headache/Pain Mild Scale (1-3) Last Admin: 11/17/23 23:15 Dose: 650 mg Al Hydroxide/Mg Hydroxide (Magnesium Hydrox/Alum Hydrox 30 Ml Oral.Susp) 30 ml PO Q6H PRN PRN Reason: Heartburn/Nausea Last Admin: 11/07/23 19:05 Dose: 30 ml Benztropine Mesylate (Benztropine Mesylate 1 Mg Tablet) 2 mg PO TID [facility] Last Admin: 11/18/23 09:21 Dose: 2 mg Clonazepam (Clonazepam 1 Mg Tablet) 1 mg PO DAILY@1700 [facility] Last Admin: 11/17/23 17:14 Dose: 1 mg Clozapine (Clozapine 25 Mg Tablet) 125 mg PO DAILY@1400 [facility] Last Admin: 11/17/23 14:05 Dose: 125 mg Clozapine (Clozapine 100 Mg Tablet) 250 mg PO BEDTIME [facility] Last Admin: 11/17/23 21:16 Dose: 250 mg Docusate Sodium (Docusate Sodium 100 Mg Capsule) 100 mg PO BID [facility] Last Admin: 11/18/23 09:19 Dose: 100 mg Folic Acid (Folic Acid 1 Mg Tablet) 1 mg PO DAILY [facility] Last Admin: 11/18/23 09:21 Dose: 1 mg Haloperidol Decanoate (Haloperidol Decanoate 50 Mg/Ml Vial) 100 mg IM Q14D [facility] Last Admin: 11/12/23 17:24 Dose: 100 mg Haloperidol Lactate (Haloperidol Lactate Oral Conc 10 Mg/5 Ml Oral.Conc) 10 mg PO BID PRN PRN Reason: Agitation Last Admin: 11/18/23 01:36 Dose: 10 mg Hydroxyzine HCl (Hydroxyzine Hcl 25 Mg Tablet) 25 mg PO Q6H PRN PRN Reason: Anxiety Loratadine (Loratadine 10 Mg Tablet) 10 mg PO DAILY [facility] Last Admin: 11/18/23 09:21 Dose: 10 mg Magnesium Hydroxide (Milk Of Magnesia 30 Ml Oral.Susp) 30 ml PO DAILY PRN PRN Reason: Constipation Magnesium Oxide (Magnesium Oxide 400 Mg Tablet) 400 mg PO DAILY [facility] Last Admin: 11/18/23 09:20 Dose: 400 mg Multivitamins/Vitamin C (Multivitamin Tablet) 1 tab PO DAILY [facility] Last Admin: 11/18/23 09:20 Dose: 1 tab Nicotine Polacrilex (Nicotine Polacrilex 2 Mg Gum) 2 mg BUCCAL Q2H PRN PRN Reason: Nicotine Cravings Pt Own (Dimethyl Fumarate 120 Mg ( Tecfidera) Capsule, Delayed Release(Dr/Ec)) 120 mg PO BID [facility] Stop: 11/19/23 09:01 Last Admin: 11/18/23 09:22 Dose: 120 mg Pt Own (Dimethyl Fumarate 240 Mg ( Tecfidera) Capsule, Delayed Release(Dr/Ec)) 240 mg PO BID [facility] Omeprazole (Omeprazole 20 Mg Capsule.) 20 mg PO DAILY [facility] Last Admin: 11/18/23 09:21 Dose: 20 mg Propranolol HCl (Propranolol Hcl 10 Mg Tablet) 10 mg PO TID [facility]; Protocol Last Admin: 11/18/23 09:20 Dose: 10 mg Thyroid (Thyroid,Pork 30 Mg Tablet) 60 mg PO DAILY [facility] Last Admin: 11/18/23 09:19 Dose: 60 mg Vitamin A/Vitamin D (A And D Ointment 56.7 Gm Tube) 1 appl TOPICAL BID PRN; Protocol PRN Reason: Dry Skin Last Admin: 11/11/23 21:32 Dose: 1 appl Allergies Allergies Allergy/AdvReac Type Severity Reaction Status Date / Time Pork/Porcine Containing Allergy Unknown RASH Verified 11/07/23 13:03 Products [PORK/PORCINE CONTAINING PRODUCTS] citalopram Allergy Unknown Verified 10/17/23 02:24 trazodone Allergy Unknown Verified 10/17/23 02:24 ALPHA LIPOIC ACID Allergy Unknown Uncoded 10/17/23 02:24 CHEF PASSENGER VESSEL-3 THYROID TOXICITY Allergy Unknown Uncoded 10/17/23 02:24 Assessment & Plan Assessment & Plan (1) Schizoaffective disorder: Status: Acute Code(s): F25.9 - Schizoaffective disorder, unspecified Plan Presents with command hallucinations, paranoia, [facility] setting and adherent with medications. Unclear if there are any additional stressors. Need to clarify [facility] order details i.e. medications available and dose ranges. With that in mind will not make any medication changes. 11/07: Pt reports hearing more voices prior to coming to the hospital. She reports voices are telling her that someone is going to kill her. She denies SI/HI. She reports feeling anxious because of voices but also reports medication changes helped and feels better than when she came here. We discussed constipation- which she denies given combination of high dose cogentin with clozapine. She reports sleeping well. 11/08: Pt presents guarded; she reports feeling depressed . Pt reports auditory hallucinations at this time; pt stated, I'm still having suicidal thoughts. The voices tell me they want to kill me . Pt reports she does not want to harm herself. pt denies HI/VH. Waiting for [facility] documents. 11/09: Pt stated I feel better than when I came in here. The voices are quieter . Pt presents with slight persistent tremor in both hands; pt reports I usually shake but cogentin and magnesium help ;discussed propanolol;risks/benefits reviewed. Pt started on propanolol 10mg PO TID. Pt denies SI/HI/VH. 11/10: Keeping to self. Guarded. Pt reports feeling anxious and depressed today; pt stated, the voices are telling me again that they can kill me. It was better yesterday . Pt denies SI/HI/VH. [facility] order documents were received. Last Invega Sustenna injection was on 11/05/23. Last Haldol decanoate injection was 10/29/23. Message out to patient's outpatient psychiatrist; waiting for call back. 11/11: Keeping to self. Guarded. Pt reports feeling depressed today; pt stated, I don't know why I feel this way . Pt denies SI/HI/VH/AH at this time. Patient to receive Haldol decanoate 100mg IM today; last IM was 10/29/23 per [facility]. Message out to patient's outpatient psychiatrist; waiting for call back. 11/13/2023: Continue current regimen and plans 11/14/2023: Continue current regimen and plans 11/14: keeping to self. guarded. pt reports feeling anxious and depressed today; pt stated, I don't know why I feel this way. The haldol helps with my anxiety and voices . Pt reports decreased auditory hallucinations; continues to hear them tell her they will kill her. pt denies HI/VH. Pt reports suicidal ideation to over dose on medication; pt stated, I don't know why I'm suicidal . 11/15: Patient reports feeling depressed today; she continues to report auditory hallucinations. Pt stated, the voices are telling me to kill myself by taking pills or throwing myself out of a window but I don't want to kill myself . Pt denies HI/VH. T/W spoke to patient's sister, Griselda, who reported patient's medication were messed up when she went to [facility] in August but she was fine before going to [facility] . Griselda to send home medication list 11/16: Patient reports feeling better than yesterday ; pt was not able to elaborate as to why she is feeling better. Pt stated, I'm still a little depressed ; pt denies SI/HI/VH/AH at this time. Continues to keep to self in room. encouraged to attend groups. 11/17: Staff reported pt was observed laying on bedroom floor. Pt reports feeling depressed today; pt stated, my voices told me to sleep on the floor and if not my heart would stop. I don't want to . Pt reports she feels she is getting better everyday . pt denies SI/HI/VH. Increase clozaril to 150mg PO daily. Patient educated on: diagnosis, medication risk/benefits and therapeutic strategies Informed Consent: understands Reason for continued inpatient stay Substantial Risk for: med/psych decompensation Time Spent With Patient Time: Total time managing care of this patient today _20___ minutes.
[2023-11-18 12:18] LABS: COVID-19 Test Negative (Negative); IDNOW Serial# 152EDE1D
[2023-11-18 14:27] VITALS: BP 116/82; PULSE 108; RESP 16; TEMP 36.4; O2SAT 98
[2023-11-18] MEDS: cloZAPine 25 MG TABLET 125 MG PO (14:28)
[2023-11-18 14:29] VITALS: BP 116/82; PULSE 108
[2023-11-18] MEDS: clonazePAM 1 MG TABLET PO (16:48)
[2023-11-18] MEDS: cloZAPine 100 MG TABLET 250 MG PO (20:13)
[2023-11-18 20:14] VITALS: BP 123/84; PULSE 110
[2023-11-18 20:21] VITALS: BP 123/84; PULSE 110; RESP 16; TEMP 36.4; O2SAT 99
[2023-11-19 09:20] VITALS: BP 110/69; PULSE 99; RESP 20; TEMP 36.8; O2SAT 99
[2023-11-19] MEDS: Benztropine Mesylate 1 MG TABLET 2 MG PO ×3 (09:21→21:33)
[2023-11-19] MEDS: Docusate Sodium 100 MG CAPSULE PO ×2 (09:21→21:35)
[2023-11-19] MEDS: Thyroid,Pork 30 MG TABLET 60 MG PO (09:21)
[2023-11-19] MEDS: Magnesium Oxide 400 MG TABLET PO (09:22)
[2023-11-19] MEDS: Multivitamin TABLET 1 TAB PO (09:22)
[2023-11-19] MEDS: Folic Acid 1 MG TABLET PO (09:22)
[2023-11-19] MEDS: Loratadine 10 MG TABLET PO (09:22)
[2023-11-19] MEDS: Omeprazole 20 MG CAPSULE.DR PO (09:23)
[2023-11-19 09:24] VITALS: BP 110/69; PULSE 99
[2023-11-19] MEDS: Propranolol HCL 10 MG TABLET PO ×2 (09:24→21:45)
--- NOTE | 2023-11-19 09:30 | HO.PSYCHPN ---
Subjective Subjective Date of Service: 11/19/23 Reason For Visit: Unspecified anxiety disorder Subjective Notes: Conditional Voluntary Interim History: Reviewed with Dr. Louis. Pt reports feeling the same as yesterday today; pt stated, I'm still hearing the voices . pt denies SI/HI/VH. Medication Compliance: Yes Side effects from medications: No Attending Groups: No Review of Systems Constitutional: Reports as per HPI Eyes: Reports as per HPI Reports as per HPI Cardiovascular: Reports as per HPI Respiratory: Reports as per HPI Gastrointestinal: Reports as per HPI Musculoskeletal: Reports as per HPI Skin/Breast: Reports as per HPI Reports as per HPI Psychiatric: Reports as per HPI Endocrine: Reports as per HPI Hematologic/Lymphatic: Reports as per HPI Allergic/Immunologic: Reports as per HPI Mental Status Exam Mental Status Exam Narrative: Pt is alert and oriented; behavior is cooperative and calm. guarded; dressed in casual attire; mood is described as depressed ; eye contact appropriate; Speech is normal rate, volume and prosody and not pressured; thought process is organized; Thought content is on tx; denies SI/HI/VH. pt reports auditory hallucinations. Diagnostics Vital Signs (24Hr): Vital Signs - 24 hr 11/18/23 14:27 11/18/23 14:29 11/18/23 20:14 Temperature 97.6 F Pulse Rate 108 H 108 H 110 H Respiratory Rate 16 Blood Pressure 116/82 116/82 123/84 Pulse Oximetry 98 Oxygen Delivery Method Room Air 11/18/23 20:21 11/19/23 09:24 Temperature 97.6 F Pulse Rate 110 H 99 Respiratory Rate 16 Blood Pressure 123/84 110/69 Pulse Oximetry 99 Oxygen Delivery Method Room Air BMI result Body Mass Index 32.0 Labs 11/07/23 07:30 Labs: Laboratory Results - last 48 hr 11/17/23 11/18/23 14:07 10:55 COVID-19 (GUY) Negative Negative COVID-19 Clin Com See Note See Note Medications Medications Current Medications Acetaminophen (Acetaminophen 325 Mg Tablet) 650 mg PO Q6H PRN PRN Reason: Headache/Pain Mild Scale (1-3) Last Admin: 11/17/23 23:15 Dose: 650 mg Al Hydroxide/Mg Hydroxide (Magnesium Hydrox/Alum Hydrox 30 Ml Oral.Susp) 30 ml PO Q6H PRN PRN Reason: Heartburn/Nausea Last Admin: 11/07/23 19:05 Dose: 30 ml Benztropine Mesylate (Benztropine Mesylate 1 Mg Tablet) 2 mg PO TID [facility] Last Admin: 11/19/23 09:21 Dose: 2 mg Clonazepam (Clonazepam 1 Mg Tablet) 1 mg PO DAILY@1700 [facility] Last Admin: 11/18/23 16:48 Dose: 1 mg Clozapine (Clozapine 100 Mg Tablet) 250 mg PO BEDTIME [facility] Last Admin: 11/18/23 20:13 Dose: 250 mg Clozapine (Clozapine 25 Mg Tablet) 150 mg PO DAILY@1400 [facility] Docusate Sodium (Docusate Sodium 100 Mg Capsule) 100 mg PO BID [facility] Last Admin: 11/19/23 09:21 Dose: 100 mg Folic Acid (Folic Acid 1 Mg Tablet) 1 mg PO DAILY [facility] Last Admin: 11/19/23 09:22 Dose: 1 mg Haloperidol Decanoate (Haloperidol Decanoate 50 Mg/Ml Vial) 100 mg IM Q14D [facility] Last Admin: 11/12/23 17:24 Dose: 100 mg Haloperidol Lactate (Haloperidol Lactate Oral Conc 10 Mg/5 Ml Oral.Conc) 10 mg PO BID PRN PRN Reason: Agitation Last Admin: 11/18/23 01:36 Dose: 10 mg Hydroxyzine HCl (Hydroxyzine Hcl 25 Mg Tablet) 25 mg PO Q6H PRN PRN Reason: Anxiety Loratadine (Loratadine 10 Mg Tablet) 10 mg PO DAILY [facility] Last Admin: 11/19/23 09:22 Dose: 10 mg Magnesium Hydroxide (Milk Of Magnesia 30 Ml Oral.Susp) 30 ml PO DAILY PRN PRN Reason: Constipation Magnesium Oxide (Magnesium Oxide 400 Mg Tablet) 400 mg PO DAILY [facility] Last Admin: 11/19/23 09:22 Dose: 400 mg Multivitamins/Vitamin C (Multivitamin Tablet) 1 tab PO DAILY [facility] Last Admin: 11/19/23 09:22 Dose: 1 tab Nicotine Polacrilex (Nicotine Polacrilex 2 Mg Gum) 2 mg BUCCAL Q2H PRN PRN Reason: Nicotine Cravings Pt Own (Dimethyl Fumarate 240 Mg ( Tecfidera) Capsule, Delayed Release(Dr/Ec)) 240 mg PO BID [facility] Omeprazole (Omeprazole 20 Mg Capsule.Dr) 20 mg PO DAILY [facility] Last Admin: 11/19/23 09:23 Dose: 20 mg Propranolol HCl (Propranolol Hcl 10 Mg Tablet) 10 mg PO TID [facility]; Protocol Last Admin: 11/19/23 09:24 Dose: 10 mg Thyroid (Thyroid,Pork 30 Mg Tablet) 60 mg PO DAILY [facility] Last Admin: 11/19/23 09:21 Dose: 60 mg Vitamin A/Vitamin D (A And D Ointment 56.7 Gm Tube) 1 appl TOPICAL BID PRN; Protocol PRN Reason: Dry Skin Last Admin: 11/11/23 21:32 Dose: 1 appl Allergies Allergies Allergy/AdvReac Type Severity Reaction Status Date / Time Pork/Porcine Containing Allergy Unknown RASH Verified 11/07/23 13:03 Products [PORK/PORCINE CONTAINING PRODUCTS] citalopram Allergy Unknown Verified 10/17/23 02:24 trazodone Allergy Unknown Verified 10/17/23 02:24 ALPHA LIPOIC ACID Allergy Unknown Uncoded 10/17/23 02:24 DOWEL MAKER-3 THYROID TOXICITY Allergy Unknown Uncoded 10/17/23 02:24 Assessment & Plan Assessment & Plan (1) Schizoaffective disorder: Status: Acute Code(s): F25.9 - Schizoaffective disorder, unspecified Plan Presents with command hallucinations, paranoia, prison setting and adherent with medications. Unclear if there are any additional stressors. Need to clarify [facility] order details i.e. medications available and dose ranges. With that in mind will not make any medication changes. 11/07: Pt reports hearing more voices prior to coming to the hospital. She reports voices are telling her that someone is going to kill her. She denies SI/HI. She reports feeling anxious because of voices but also reports medication changes helped and feels better than when she came here. We discussed constipation- which she denies given combination of high dose cogentin with clozapine. She reports sleeping well. 11/08: Pt presents guarded; she reports feeling depressed . Pt reports auditory hallucinations at this time; pt stated, I'm still having suicidal thoughts. The voices tell me they want to kill me . Pt reports she does not want to harm herself. pt denies HI/VH. Waiting for [facility] documents. 11/09: Pt stated I feel better than when I came in here. The voices are quieter . Pt presents with slight persistent tremor in both hands; pt reports I usually shake but cogentin and magnesium help ;discussed propanolol;risks/benefits reviewed. Pt started on propanolol 10mg PO TID. Pt denies SI/HI/VH. 11/10: Keeping to self. Guarded. Pt reports feeling anxious and depressed today; pt stated, the voices are telling me again that they can kill me. It was better yesterday . Pt denies SI/HI/VH. [facility] order documents were received. Last Invega Sustenna injection was on 11/05/23. Last Haldol decanoate injection was 10/29/23. Message out to patient's outpatient psychiatrist; waiting for call back. 11/11: Keeping to self. Guarded. Pt reports feeling depressed today; pt stated, I don't know why I feel this way . Pt denies SI/HI/VH/AH at this time. Patient to receive Haldol decanoate 100mg IM today; last IM was 10/29/23 per [facility]. Message out to patient's outpatient psychiatrist; waiting for call back. 11/13/2023: Continue current regimen and plans 11/14/2023: Continue current regimen and plans 11/14: keeping to self. guarded. pt reports feeling anxious and depressed today; pt stated, I don't know why I feel this way. The haldol helps with my anxiety and voices . Pt reports decreased auditory hallucinations; continues to hear them tell her they will kill her. pt denies HI/VH. Pt reports suicidal ideation to over dose on medication; pt stated, I don't know why I'm suicidal . 11/15: Patient reports feeling depressed today; she continues to report auditory hallucinations. Pt stated, the voices are telling me to kill myself by taking pills or throwing myself out of a window but I don't want to kill myself . Pt denies HI/VH. T/W spoke to patient's sister, Griselda, who reported patient's medication were messed up when she went to [facility] in August but she was fine before going to [facility] . Griselda to send home medication list 11/16: Patient reports feeling better than yesterday ; pt was not able to elaborate as to why she is feeling better. Pt stated, I'm still a little depressed ; pt denies SI/HI/VH/AH at this time. Continues to keep to self in room. encouraged to attend groups. 11/17: Staff reported pt was observed laying on bedroom floor. Pt reports feeling depressed today; pt stated, my voices told me to sleep on the floor and if not my heart would stop. I don't want to . Pt reports she feels she is getting better everyday . pt denies SI/HI/VH. Increase clozaril to 150mg PO daily. 11/18: continue current tx plan. Patient educated on: diagnosis, medication risk/benefits and therapeutic strategies Informed Consent: understands Reason for continued inpatient stay Substantial Risk for: med/psych decompensation Time Spent With Patient Time: Total time managing care of this patient today _20___ minutes.
[2023-11-19] MEDS: cloZAPine 25 MG TABLET 150 MG PO (14:04)
[2023-11-19 15:09] VITALS: BP 89/56; PULSE 96
[2023-11-19] MEDS: clonazePAM 1 MG TABLET PO (17:07)
[2023-11-19 21:27] VITALS: BP 130/75; PULSE 107; RESP 18; TEMP 36.4; O2SAT 98
[2023-11-19] MEDS: Haloperidol Lactate Oral Conc 10 MG/5 ML ORAL.CONC PO (21:33)
[2023-11-19] MEDS: cloZAPine 100 MG TABLET 250 MG PO (21:34)
[2023-11-20 09:28] VITALS: BP 111/67; PULSE 88; RESP 16; TEMP 36.6; O2SAT 98
[2023-11-20] MEDS: Folic Acid 1 MG TABLET PO (09:30)
[2023-11-20] MEDS: Loratadine 10 MG TABLET PO (09:31)
[2023-11-20] MEDS: Omeprazole 20 MG CAPSULE.DR PO (09:31)
[2023-11-20] MEDS: Thyroid,Pork 30 MG TABLET 60 MG PO (09:32)
[2023-11-20] MEDS: Benztropine Mesylate 1 MG TABLET 2 MG PO ×3 (09:32→21:31)
[2023-11-20 09:33] VITALS: BP 111/67; PULSE 88
[2023-11-20] MEDS: Multivitamin TABLET 1 TAB PO (09:33)
[2023-11-20] MEDS: Magnesium Oxide 400 MG TABLET PO (09:33)
[2023-11-20] MEDS: Propranolol HCL 10 MG TABLET PO ×3 (09:33→21:31)
[2023-11-20] MEDS: Docusate Sodium 100 MG CAPSULE PO ×2 (09:34→21:31)
--- NOTE | 2023-11-20 13:48 | P.PNPSI_ITS ---
Subjective Subjective Date of Service: 11/20/23 Reason For Visit: Unspecified anxiety disorder Subjective Notes: Conditional Voluntary Interim History: Pt slept through the night. She reports hearing voices but thinks they are slightly less. Noted pt on very high dose of cogentin in addition to clozaril. although pt denies constipation or dry mouth, we discussed detrimental effects of anticholigergic effects especially when used in higher than needed doses. Will decrease cogentin to 1mg po BID. continue clozaril prn haldol, may want to consider scheduling it. Review of Systems Review of Systems Chronic lower leg weakness Patient otherwise has no medical complaints Yes all other systems are reviewed and are negative Constitutional: Reports as per HPI Eyes: Reports as per HPI Reports as per HPI Cardiovascular: Reports as per HPI Respiratory: Reports as per HPI Gastrointestinal: Reports as per HPI Musculoskeletal: Reports as per HPI Skin/Breast: Reports as per HPI Reports as per HPI Psychiatric: Reports as per HPI Endocrine: Reports as per HPI Hematologic/Lymphatic: Reports as per HPI Allergic/Immunologic: Reports as per HPI Mental Status Exam Mental Status Exam Narrative: Pt is alert and oriented; behavior is cooperative and calm. guarded; dressed in casual attire; mood is described as depressed ; eye contact appropriate; Speech is normal rate, volume and prosody and not pressured; thought process is organized; Thought content is on tx; denies SI/HI/VH. pt reports auditory hallucinations. Diagnostics Vital Signs (24Hr): Vital Signs - 24 hr 11/19/23 15:09 11/19/23 15:09 11/19/23 21:27 Temperature 97.5 F Pulse Rate 96 96 107 H Respiratory Rate 18 Blood Pressure 89/56 L 89/56 L 130/75 Pulse Oximetry 98 Oxygen Delivery Method Room Air 11/20/23 09:28 11/20/23 09:33 Temperature 97.8 F Pulse Rate 88 88 Respiratory Rate 16 Blood Pressure 111/67 111/67 Pulse Oximetry 98 Oxygen Delivery Method Room Air BMI result Body Mass Index 32.0 Labs 11/07/23 07:30 Medications Medications Current Medications Acetaminophen (Acetaminophen 325 Mg Tablet) 650 mg PO Q6H PRN PRN Reason: Headache/Pain Mild Scale (1-3) Last Admin: 11/17/23 23:15 Dose: 650 mg Al Hydroxide/Mg Hydroxide (Magnesium Hydrox/Alum Hydrox 30 Ml Oral.Susp) 30 ml PO Q6H PRN PRN Reason: Heartburn/Nausea Last Admin: 11/07/23 19:05 Dose: 30 ml Benztropine Mesylate (Benztropine Mesylate 1 Mg Tablet) 2 mg PO TID [facility] Last Admin: 11/20/23 09:32 Dose: 2 mg Clonazepam (Clonazepam 1 Mg Tablet) 1 mg PO DAILY@1700 [facility] Last Admin: 11/19/23 17:07 Dose: 1 mg Clozapine (Clozapine 100 Mg Tablet) 250 mg PO BEDTIME [facility] Last Admin: 11/19/23 21:34 Dose: 250 mg Clozapine (Clozapine 25 Mg Tablet) 150 mg PO DAILY@1400 [facility] Last Admin: 11/19/23 14:04 Dose: 150 mg Docusate Sodium (Docusate Sodium 100 Mg Capsule) 100 mg PO BID [facility] Last Admin: 11/20/23 09:34 Dose: 100 mg Folic Acid (Folic Acid 1 Mg Tablet) 1 mg PO DAILY [facility] Last Admin: 11/20/23 09:30 Dose: 1 mg Haloperidol Decanoate (Haloperidol Decanoate 50 Mg/Ml Vial) 100 mg IM Q14D [facility] Last Admin: 11/12/23 17:24 Dose: 100 mg Haloperidol Lactate (Haloperidol Lactate Oral Conc 10 Mg/5 Ml Oral.Conc) 10 mg PO BID PRN PRN Reason: Agitation Last Admin: 11/19/23 21:33 Dose: 10 mg Hydroxyzine HCl (Hydroxyzine Hcl 25 Mg Tablet) 25 mg PO Q6H PRN PRN Reason: Anxiety Loratadine (Loratadine 10 Mg Tablet) 10 mg PO DAILY [facility] Last Admin: 11/20/23 09:31 Dose: 10 mg Magnesium Hydroxide (Milk Of Magnesia 30 Ml Oral.Susp) 30 ml PO DAILY PRN PRN Reason: Constipation Magnesium Oxide (Magnesium Oxide 400 Mg Tablet) 400 mg PO DAILY [facility] Last Admin: 11/20/23 09:33 Dose: 400 mg Multivitamins/Vitamin C (Multivitamin Tablet) 1 tab PO DAILY [facility] Last Admin: 11/20/23 09:33 Dose: 1 tab Nicotine Polacrilex (Nicotine Polacrilex 2 Mg Gum) 2 mg BUCCAL Q2H PRN PRN Reason: Nicotine Cravings Pt Own (Dimethyl Fumarate 240 Mg ( Tecfidera) Capsule, Delayed Release(Dr/Ec)) 240 mg PO BID [facility] Last Admin: 11/20/23 09:34 Dose: 240 mg Omeprazole (Omeprazole 20 Mg Capsule.) 20 mg PO DAILY [facility] Last Admin: 11/20/23 09:31 Dose: 20 mg Propranolol HCl (Propranolol Hcl 10 Mg Tablet) 10 mg PO TID [facility]; Protocol Last Admin: 11/20/23 09:33 Dose: 10 mg Thyroid (Thyroid,Pork 30 Mg Tablet) 60 mg PO DAILY [facility] Last Admin: 11/20/23 09:32 Dose: 60 mg Vitamin A/Vitamin D (A And D Ointment 56.7 Gm Tube) 1 appl TOPICAL BID PRN; Protocol PRN Reason: Dry Skin Last Admin: 11/11/23 21:32 Dose: 1 appl Allergies Allergies Allergy/AdvReac Type Severity Reaction Status Date / Time Pork/Porcine Containing Allergy Unknown RASH Verified 11/07/23 13:03 Products [PORK/PORCINE CONTAINING PRODUCTS] citalopram Allergy Unknown Verified 10/17/23 02:24 trazodone Allergy Unknown Verified 10/17/23 02:24 ALPHA LIPOIC ACID Allergy Unknown Uncoded 10/17/23 02:24 SENIOR USER [employer]PERIENCE ARCHITECT-3 THYROID TOXICITY Allergy Unknown Uncoded 10/17/23 02:24 Assessment & Plan Assessment & Plan (1) Schizoaffective disorder: Status: Acute Code(s): F25.9 - Schizoaffective disorder, unspecified Plan Presents with command hallucinations, paranoia, snf setting and adherent with medications. Unclear if there are any additional stressors. Need to clarify [facility] order details i.e. medications available and dose ranges. With that in mind will not make any medication changes. 11/07: Pt reports hearing more voices prior to coming to the hospital. She reports voices are telling her that someone is going to kill her. She denies SI/HI. She reports feeling anxious because of voices but also reports medication changes helped and feels better than when she came here. We discussed constipation- which she denies given combination of high dose cogentin with clozapine. She reports sleeping well. 11/08: Pt presents guarded; she reports feeling depressed . Pt reports auditory hallucinations at this time; pt stated, I'm still having suicidal thoughts. The voices tell me they want to kill me . Pt reports she does not want to harm herself. pt denies HI/VH. Waiting for [facility] documents. 11/09: Pt stated I feel better than when I came in here. The voices are quieter . Pt presents with slight persistent tremor in both hands; pt reports I usually shake but cogentin and magnesium help ;discussed propanolol;risks/benefits reviewed. Pt started on propanolol 10mg PO TID. Pt denies SI/HI/VH. 11/10: Keeping to self. Guarded. Pt reports feeling anxious and depressed today; pt stated, the voices are telling me again that they can kill me. It was better yesterday . Pt denies SI/HI/VH. [facility] order documents were received. Last Invega Sustenna injection was on 11/05/23. Last Haldol decanoate injection was 10/29/23. Message out to patient's outpatient psychiatrist; waiting for call back. 11/11: Keeping to self. Guarded. Pt reports feeling depressed today; pt stated, I don't know why I feel this way . Pt denies SI/HI/VH/AH at this time. Patient to receive Haldol decanoate 100mg IM today; last IM was 10/29/23 per [facility]. Message out to patient's outpatient psychiatrist; waiting for call back. 11/13/2023: Continue current regimen and plans 11/14/2023: Continue current regimen and plans 11/14: keeping to self. guarded. pt reports feeling anxious and depressed today; pt stated, I don't know why I feel this way. The haldol helps with my anxiety and voices . Pt reports decreased auditory hallucinations; continues to hear them tell her they will kill her. pt denies HI/VH. Pt reports suicidal ideation to over dose on medication; pt stated, I don't know why I'm suicidal . 11/15: Patient reports feeling depressed today; she continues to report auditory hallucinations. Pt stated, the voices are telling me to kill myself by taking pills or throwing myself out of a window but I don't want to kill myself . Pt denies HI/VH. T/W spoke to patient's sister, Griselda, who reported patient's medication were messed up when she went to [facility] in August but she was fine before going to [facility] . Griselda to send home medication list 11/16: Patient reports feeling better than yesterday ; pt was not able to elaborate as to why she is feeling better. Pt stated, I'm still a little depressed ; pt denies SI/HI/VH/AH at this time. Continues to keep to self in room. encouraged to attend groups. 11/17: Staff reported pt was observed laying on bedroom floor. Pt reports feeling depressed today; pt stated, my voices told me to sleep on the floor and if not my heart would stop. I don't want to . Pt reports she feels she is getting better everyday . pt denies SI/HI/VH. Increase clozaril to 150mg PO daily. 11/18: continue current tx plan. continue current medications. lower cogentin from 2mg po TID to 1mg po BID. if propanolol effective for tremors, consider d/c cogentin due to excessive anticholigergic effects in combination with clozaril Reason for continued inpatient stay Substantial Risk for: inability to function Time Spent With Patient Time: Total time managing care of this patient today ____ minutes.
[2023-11-20] MEDS: cloZAPine 25 MG TABLET 150 MG PO (13:58)
[2023-11-20 15:36] VITALS: BP 128/85; PULSE 100; RESP 16; O2SAT 99
[2023-11-20 15:42] VITALS: BP 128/85; PULSE 100
[2023-11-20] MEDS: clonazePAM 1 MG TABLET PO (17:05)
[2023-11-20] MEDS: Haloperidol Lactate Oral Conc 10 MG/5 ML ORAL.CONC PO (17:06)
[2023-11-20 21:30] VITALS: BP 145/76; PULSE 103; RESP 18; TEMP 36.4; O2SAT 99
[2023-11-20] MEDS: cloZAPine 100 MG TABLET 250 MG PO (21:31)
[2023-11-21] VITALS (7 sets, daily range): BP systolic 87–129; BP diastolic 52–76; PULSE 83–110; RESP 16–18; TEMP 36.3–36.4; O2SAT 97–98
[2023-11-21] MEDS: hydrOXYzine HCL 25 MG TABLET PO (00:41)
[2023-11-21 07:21] LABS: Neut%MD 46.4 %; WBCANC 6.4 X10*3/uL
[2023-11-21] MEDS: Omeprazole 20 MG CAPSULE.DR PO (09:22)
[2023-11-21] MEDS: Loratadine 10 MG TABLET PO (09:23)
[2023-11-21] MEDS: Magnesium Oxide 400 MG TABLET PO (09:23)
[2023-11-21] MEDS: Folic Acid 1 MG TABLET PO (09:23)
[2023-11-21] MEDS: Multivitamin TABLET 1 TAB PO (09:23)
[2023-11-21] MEDS: Benztropine Mesylate 1 MG TABLET 2 MG PO (09:24)
[2023-11-21] MEDS: Docusate Sodium 100 MG CAPSULE PO ×2 (09:24→20:34)
[2023-11-21] MEDS: Thyroid,Pork 30 MG TABLET 60 MG PO (09:24)
[2023-11-21] MEDS: Propranolol HCL 10 MG TABLET PO (14:23)
[2023-11-21] MEDS: cloZAPine 25 MG TABLET 150 MG PO (14:24)
--- NOTE | 2023-11-21 14:56 | P.PNPSI_ITS ---
Subjective Subjective Date of Service: 11/21/23 Reason For Visit: Unspecified anxiety disorder Interim History: Pt slept through the night. She reports hearing voices but thinks they are slightly less. Noted pt on very high dose of cogentin in addition to clozaril. although pt denies constipation or dry mouth, we discussed detrimental effects of anticholigergic effects especially when used in higher than needed doses. Will decrease cogentin to 1mg po BID. continue clozaril prn haldol, may want to consider scheduling it. Review of Systems Review of Systems Chronic lower leg weakness Patient otherwise has no medical complaints Yes all other systems are reviewed and are negative Constitutional: Reports as per HPI Eyes: Reports as per HPI Reports as per HPI Cardiovascular: Reports as per HPI Respiratory: Reports as per HPI Gastrointestinal: Reports as per HPI Musculoskeletal: Reports as per HPI Skin/Breast: Reports as per HPI Reports as per HPI Psychiatric: Reports as per HPI Endocrine: Reports as per HPI Hematologic/Lymphatic: Reports as per HPI Allergic/Immunologic: Reports as per HPI Mental Status Exam Mental Status Exam Narrative: Pt is alert and oriented; behavior is cooperative and calm. guarded; dressed in casual attire; mood is described as depressed ; eye contact appropriate; Speech is normal rate, volume and prosody and not pressured; thought process is organized; Thought content is on tx; denies SI/HI/VH. pt reports auditory hallucinations. Diagnostics Vital Signs (24Hr): Vital Signs - 24 hr 11/20/23 15:36 11/20/23 15:42 11/20/23 21:30 Temperature 97.6 F Pulse Rate 100 100 103 H Respiratory Rate 16 18 Blood Pressure 128/85 128/85 145/76 H Pulse Oximetry 99 99 Oxygen Delivery Method Room Air Room Air 11/21/23 08:05 11/21/23 09:18 11/21/23 09:29 Temperature 97.3 F Pulse Rate 84 83 83 Respiratory Rate 16 16 Blood Pressure 87/52 L 98/57 L 98/57 L Pulse Oximetry 97 98 Oxygen Delivery Method Room Air Room Air 11/21/23 14:14 11/21/23 14:23 Temperature Pulse Rate 110 H 110 H Respiratory Rate 18 Blood Pressure 129/76 129/76 Pulse Oximetry 98 Oxygen Delivery Method Room Air BMI result Body Mass Index 32.0 Labs 11/07/23 07:30 Labs: Laboratory Results - last 48 hr 11/21/23 07:13 Absolute Neuts (auto) 3.0 Medications Medications Current Medications Acetaminophen (Acetaminophen 325 Mg Tablet) 650 mg PO Q6H PRN PRN Reason: Headache/Pain Mild Scale (1-3) Last Admin: 11/17/23 23:15 Dose: 650 mg Al Hydroxide/Mg Hydroxide (Magnesium Hydrox/Alum Hydrox 30 Ml Oral.Susp) 30 ml PO Q6H PRN PRN Reason: Heartburn/Nausea Last Admin: 11/07/23 19:05 Dose: 30 ml Benztropine Mesylate (Benztropine Mesylate 1 Mg Tablet) 1 mg PO BID [facility] Clonazepam (Clonazepam 1 Mg Tablet) 1 mg PO DAILY@1700 [facility] Last Admin: 11/20/23 17:05 Dose: 1 mg Clozapine (Clozapine 100 Mg Tablet) 250 mg PO BEDTIME [facility] Last Admin: 11/20/23 21:31 Dose: 250 mg Clozapine (Clozapine 25 Mg Tablet) 150 mg PO DAILY@1400 [facility] Last Admin: 11/21/23 14:24 Dose: 150 mg Docusate Sodium (Docusate Sodium 100 Mg Capsule) 100 mg PO BID [facility] Last Admin: 11/21/23 09:24 Dose: 100 mg Folic Acid (Folic Acid 1 Mg Tablet) 1 mg PO DAILY [facility] Last Admin: 11/21/23 09:23 Dose: 1 mg Haloperidol Decanoate (Haloperidol Decanoate 50 Mg/Ml Vial) 100 mg IM Q14D [facility] Last Admin: 11/12/23 17:24 Dose: 100 mg Haloperidol Lactate (Haloperidol Lactate Oral Conc 10 Mg/5 Ml Oral.Conc) 10 mg PO BID PRN PRN Reason: Agitation Last Admin: 11/20/23 17:06 Dose: 10 mg Hydroxyzine HCl (Hydroxyzine Hcl 25 Mg Tablet) 25 mg PO Q6H PRN PRN Reason: Anxiety Last Admin: 11/21/23 00:41 Dose: 25 mg Loratadine (Loratadine 10 Mg Tablet) 10 mg PO DAILY [facility] Last Admin: 11/21/23 09:23 Dose: 10 mg Magnesium Hydroxide (Milk Of Magnesia 30 Ml Oral.Susp) 30 ml PO DAILY PRN PRN Reason: Constipation Magnesium Oxide (Magnesium Oxide 400 Mg Tablet) 400 mg PO DAILY [facility] Last Admin: 11/21/23 09:23 Dose: 400 mg Multivitamins/Vitamin C (Multivitamin Tablet) 1 tab PO DAILY [facility] Last Admin: 11/21/23 09:23 Dose: 1 tab Nicotine Polacrilex (Nicotine Polacrilex 2 Mg Gum) 2 mg BUCCAL Q2H PRN PRN Reason: Nicotine Cravings Pt Own (Dimethyl Fumarate 240 Mg ( Tecfidera) Capsule, Delayed Release(Dr/Ec)) 240 mg PO BID [facility] Last Admin: 11/21/23 09:25 Dose: 240 mg Omeprazole (Omeprazole 20 Mg Capsule.Dr) 20 mg PO DAILY [facility] Last Admin: 11/21/23 09:22 Dose: 20 mg Propranolol HCl (Propranolol Hcl 10 Mg Tablet) 10 mg PO TID [facility]; Protocol Last Admin: 11/21/23 14:23 Dose: 10 mg Thyroid (Thyroid,Pork 30 Mg Tablet) 60 mg PO DAILY [facility] Last Admin: 11/21/23 09:24 Dose: 60 mg Vitamin A/Vitamin D (A And D Ointment 56.7 Gm Tube) 1 appl TOPICAL BID PRN; Protocol PRN Reason: Dry Skin Last Admin: 11/11/23 21:32 Dose: 1 appl Allergies Allergies Allergy/AdvReac Type Severity Reaction Status Date / Time Pork/Porcine Containing Allergy Unknown RASH Verified 11/07/23 13:03 Products [PORK/PORCINE CONTAINING PRODUCTS] citalopram Allergy Unknown Verified 10/17/23 02:24 trazodone Allergy Unknown Verified 10/17/23 02:24 ALPHA LIPOIC ACID Allergy Unknown Uncoded 10/17/23 02:24 BRUSHING MACHINE OPERATOR-3 THYROID TOXICITY Allergy Unknown Uncoded 10/17/23 02:24 Assessment & Plan Assessment & Plan (1) Schizoaffective disorder: Status: Acute Code(s): F25.9 - Schizoaffective disorder, unspecified Plan Presents with command hallucinations, paranoia, retirement setting and adherent with medications. Unclear if there are any additional stressors. Need to clarify [facility] order details i.e. medications available and dose ranges. With that in mind will not make any medication changes. 11/07: Pt reports hearing more voices prior to coming to the hospital. She reports voices are telling her that someone is going to kill her. She denies SI/HI. She reports feeling anxious because of voices but also reports medication changes helped and feels better than when she came here. We discussed constipation- which she denies given combination of high dose cogentin with clozapine. She reports sleeping well. 11/08: Pt presents guarded; she reports feeling depressed . Pt reports auditory hallucinations at this time; pt stated, I'm still having suicidal thoughts. The voices tell me they want to kill me . Pt reports she does not want to harm herself. pt denies HI/VH. Waiting for [employer] documents. 11/09: Pt stated I feel better than when I came in here. The voices are quieter . Pt presents with slight persistent tremor in both hands; pt reports I usually shake but cogentin and magnesium help ;discussed propanolol;risks/benefits reviewed. Pt started on propanolol 10mg PO TID. Pt denies SI/HI/VH. 11/10: Keeping to self. Guarded. Pt reports feeling anxious and depressed today; pt stated, the voices are telling me again that they can kill me. It was better yesterday . Pt denies SI/HI/VH. [employer] order documents were received. Last Invega Sustenna injection was on 11/05/23. Last Haldol decanoate injection was 10/29/23. Message out to patient's outpatient psychiatrist; waiting for call back. 11/11: Keeping to self. Guarded. Pt reports feeling depressed today; pt stated, I don't know why I feel this way . Pt denies SI/HI/VH/AH at this time. Patient to receive Haldol decanoate 100mg IM today; last IM was 10/29/23 per [facility]. Message out to patient's outpatient psychiatrist; waiting for call back. 11/13/2023: Continue current regimen and plans 11/14/2023: Continue current regimen and plans 11/14: keeping to self. guarded. pt reports feeling anxious and depressed today; pt stated, I don't know why I feel this way. The haldol helps with my anxiety and voices . Pt reports decreased auditory hallucinations; continues to hear them tell her they will kill her. pt denies HI/VH. Pt reports suicidal ideation to over dose on medication; pt stated, I don't know why I'm suicidal . 11/15: Patient reports feeling depressed today; she continues to report auditory hallucinations. Pt stated, the voices are telling me to kill myself by taking pills or throwing myself out of a window but I don't want to kill myself . Pt denies HI/VH. T/W spoke to patient's sister, Griselda, who reported patient's medication were messed up when she went to [facility] in August but she was fine before going to [facility] . Griselda to send home medication list 11/16: Patient reports feeling better than yesterday ; pt was not able to elaborate as to why she is feeling better. Pt stated, I'm still a little depressed ; pt denies SI/HI/VH/AH at this time. Continues to keep to self in room. encouraged to attend groups. 11/17: Staff reported pt was observed laying on bedroom floor. Pt reports feeling depressed today; pt stated, my voices told me to sleep on the floor and if not my heart would stop. I don't want to . Pt reports she feels she is getting better everyday . pt denies SI/HI/VH. Increase clozaril to 150mg PO daily. 11/18: continue current tx plan. 11/19 continue tx. decrease cogentin to 1mg po BID 11/20 continue tx. Reason for continued inpatient stay Substantial Risk for: inability to function Time Spent With Patient Time: Total time managing care of this patient today ____ minutes.
[2023-11-21] MEDS: clonazePAM 1 MG TABLET PO (16:44)
[2023-11-21] MEDS: Benztropine Mesylate 1 MG TABLET PO (20:33)
[2023-11-21] MEDS: cloZAPine 100 MG TABLET 250 MG PO (20:33)
[2023-11-21] MEDS: Haloperidol Lactate Oral Conc 10 MG/5 ML ORAL.CONC PO (22:05)
[2023-11-22 07:45] VITALS: BP 113/57; PULSE 104; RESP 16; TEMP 36.4; O2SAT 97
[2023-11-22] MEDS: Folic Acid 1 MG TABLET PO (09:06)
[2023-11-22] MEDS: Omeprazole 20 MG CAPSULE.DR PO (09:06)
[2023-11-22] MEDS: Magnesium Oxide 400 MG TABLET PO (09:06)
[2023-11-22] MEDS: Thyroid,Pork 30 MG TABLET 60 MG PO (09:06)
[2023-11-22] MEDS: Multivitamin TABLET 1 TAB PO (09:06)
[2023-11-22] MEDS: Benztropine Mesylate 1 MG TABLET PO ×2 (09:06→21:17)
[2023-11-22 09:07] VITALS: BP 113/57; PULSE 104
[2023-11-22] MEDS: Propranolol HCL 10 MG TABLET PO ×3 (09:07→21:19)
[2023-11-22] MEDS: Loratadine 10 MG TABLET PO (09:08)
[2023-11-22] MEDS: Docusate Sodium 100 MG CAPSULE PO ×2 (09:08→21:20)
--- NOTE | 2023-11-22 09:21 | P.PNPSI_ITS ---
Subjective Subjective Date of Service: 11/22/23 Reason For Visit: Unspecified anxiety disorder Subjective Notes: Conditional Voluntary Interim History: Reviewed with Dr. Louis. Keeping to self. Pt continues to report feeling depressed today; pt stated, the voices have decreased but they are telling me they want to stop my heart . Pt reports she would like to go home soon. pt denies SI/HI/VH. Medication Compliance: Yes Side effects from medications: No Attending Groups: No Review of Systems Constitutional: Reports as per HPI Eyes: Reports as per HPI Reports as per HPI Cardiovascular: Reports as per HPI Respiratory: Reports as per HPI Gastrointestinal: Reports as per HPI Musculoskeletal: Reports as per HPI Skin/Breast: Reports as per HPI Reports as per HPI Psychiatric: Reports as per HPI Endocrine: Reports as per HPI Hematologic/Lymphatic: Reports as per HPI Allergic/Immunologic: Reports as per HPI Mental Status Exam Mental Status Exam Narrative: Pt is alert and oriented; behavior is cooperative and calm. guarded; dressed in casual attire; mood is described as depressed ; eye contact appropriate; Speech is normal rate, volume and prosody and not pressured; thought process is organized; Thought content is on tx; denies SI/HI/VH. pt reports auditory hallucinations. Diagnostics Vital Signs (24Hr): Vital Signs - 24 hr 11/21/23 09:29 11/21/23 14:14 11/21/23 14:23 Temperature Pulse Rate 83 110 H 110 H Respiratory Rate 18 Blood Pressure 98/57 L 129/76 129/76 Pulse Oximetry 98 Oxygen Delivery Method Room Air 11/21/23 20:00 11/21/23 20:39 11/22/23 07:45 Temperature 97.6 F 97.5 F Pulse Rate 97 97 104 H Respiratory Rate 16 16 Blood Pressure 95/53 L 95/53 L 113/57 L Pulse Oximetry 97 97 Oxygen Delivery Method Room Air Room Air 11/22/23 09:07 Temperature Pulse Rate 104 H Respiratory Rate Blood Pressure 113/57 L Pulse Oximetry Oxygen Delivery Method BMI result Body Mass Index 32.0 Labs 11/07/23 07:30 Labs: Laboratory Results - last 48 hr 11/21/23 07:13 Absolute Neuts (auto) 3.0 Medications Medications Current Medications Acetaminophen (Acetaminophen 325 Mg Tablet) 650 mg PO Q6H PRN PRN Reason: Headache/Pain Mild Scale (1-3) Last Admin: 11/17/23 23:15 Dose: 650 mg Al Hydroxide/Mg Hydroxide (Magnesium Hydrox/Alum Hydrox 30 Ml Oral.Susp) 30 ml PO Q6H PRN PRN Reason: Heartburn/Nausea Last Admin: 11/07/23 19:05 Dose: 30 ml Benztropine Mesylate (Benztropine Mesylate 1 Mg Tablet) 1 mg PO BID [facility] Last Admin: 11/22/23 09:06 Dose: 1 mg Clonazepam (Clonazepam 1 Mg Tablet) 1 mg PO DAILY@1700 [facility] Last Admin: 11/21/23 16:44 Dose: 1 mg Clozapine (Clozapine 100 Mg Tablet) 250 mg PO BEDTIME [facility] Last Admin: 11/21/23 20:33 Dose: 250 mg Clozapine (Clozapine 25 Mg Tablet) 150 mg PO DAILY@1400 [facility] Last Admin: 11/21/23 14:24 Dose: 150 mg Docusate Sodium (Docusate Sodium 100 Mg Capsule) 100 mg PO BID [facility] Last Admin: 11/22/23 09:08 Dose: 100 mg Folic Acid (Folic Acid 1 Mg Tablet) 1 mg PO DAILY [facility] Last Admin: 11/22/23 09:06 Dose: 1 mg Haloperidol Decanoate (Haloperidol Decanoate 50 Mg/Ml Vial) 100 mg IM Q14D [facility] Last Admin: 11/12/23 17:24 Dose: 100 mg Haloperidol Lactate (Haloperidol Lactate Oral Conc 10 Mg/5 Ml Oral.Conc) 10 mg PO BID PRN PRN Reason: Agitation Last Admin: 11/21/23 22:05 Dose: 10 mg Hydroxyzine HCl (Hydroxyzine Hcl 25 Mg Tablet) 25 mg PO Q6H PRN PRN Reason: Anxiety Last Admin: 11/21/23 00:41 Dose: 25 mg Loratadine (Loratadine 10 Mg Tablet) 10 mg PO DAILY [facility] Last Admin: 11/22/23 09:08 Dose: 10 mg Magnesium Hydroxide (Milk Of Magnesia 30 Ml Oral.Susp) 30 ml PO DAILY PRN PRN Reason: Constipation Magnesium Oxide (Magnesium Oxide 400 Mg Tablet) 400 mg PO DAILY [facility] Last Admin: 11/22/23 09:06 Dose: 400 mg Multivitamins/Vitamin C (Multivitamin Tablet) 1 tab PO DAILY [facility] Last Admin: 11/22/23 09:06 Dose: 1 tab Nicotine Polacrilex (Nicotine Polacrilex 2 Mg Gum) 2 mg BUCCAL Q2H PRN PRN Reason: Nicotine Cravings Pt Own (Dimethyl Fumarate 240 Mg ( Tecfidera) Capsule, Delayed Release(Dr/Ec)) 240 mg PO BID [facility] Last Admin: 11/22/23 09:08 Dose: 240 mg Omeprazole (Omeprazole 20 Mg Capsule.Dr) 20 mg PO DAILY [facility] Last Admin: 11/22/23 09:06 Dose: 20 mg Propranolol HCl (Propranolol Hcl 10 Mg Tablet) 10 mg PO TID [facility]; Protocol Last Admin: 11/22/23 09:07 Dose: 10 mg Thyroid (Thyroid,Pork 30 Mg Tablet) 60 mg PO DAILY [facility] Last Admin: 11/22/23 09:06 Dose: 60 mg Vitamin A/Vitamin D (A And D Ointment 56.7 Gm Tube) 1 appl TOPICAL BID PRN; Protocol PRN Reason: Dry Skin Last Admin: 11/11/23 21:32 Dose: 1 appl Allergies Allergies Allergy/AdvReac Type Severity Reaction Status Date / Time Pork/Porcine Containing Allergy Unknown RASH Verified 11/07/23 13:03 Products [PORK/PORCINE CONTAINING PRODUCTS] citalopram Allergy Unknown Verified 10/17/23 02:24 trazodone Allergy Unknown Verified 10/17/23 02:24 ALPHA LIPOIC ACID Allergy Unknown Uncoded 10/17/23 02:24 BORDER GUARD-3 THYROID TOXICITY Allergy Unknown Uncoded 10/17/23 02:24 Assessment & Plan Assessment & Plan (1) Schizoaffective disorder: Status: Acute Code(s): F25.9 - Schizoaffective disorder, unspecified Plan Presents with command hallucinations, paranoia, residential setting and adherent with medications. Unclear if there are any additional stressors. Need to clarify [facility] order details i.e. medications available and dose ranges. With that in mind will not make any medication changes. 11/07: Pt reports hearing more voices prior to coming to the hospital. She reports voices are telling her that someone is going to kill her. She denies SI/HI. She reports feeling anxious because of voices but also reports medication changes helped and feels better than when she came here. We discussed constipation- which she denies given combination of high dose cogentin with clozapine. She reports sleeping well. 11/08: Pt presents guarded; she reports feeling depressed . Pt reports auditory hallucinations at this time; pt stated, I'm still having suicidal thoughts. The voices tell me they want to kill me . Pt reports she does not want to harm herself. pt denies HI/VH. Waiting for [facility] documents. 11/09: Pt stated I feel better than when I came in here. The voices are quieter . Pt presents with slight persistent tremor in both hands; pt reports I usually shake but cogentin and magnesium help ;discussed propanolol;risks/benefits reviewed. Pt started on propanolol 10mg PO TID. Pt denies SI/HI/VH. 11/10: Keeping to self. Guarded. Pt reports feeling anxious and depressed today; pt stated, the voices are telling me again that they can kill me. It was better yesterday . Pt denies SI/HI/VH. [facility] order documents were received. Last Invega Sustenna injection was on 11/05/23. Last Haldol decanoate injection was 10/29/23. Message out to patient's outpatient psychiatrist; waiting for call back. 11/11: Keeping to self. Guarded. Pt reports feeling depressed today; pt stated, I don't know why I feel this way . Pt denies SI/HI/VH/AH at this time. Patient to receive Haldol decanoate 100mg IM today; last IM was 10/29/23 per [facility]. Message out to patient's outpatient psychiatrist; waiting for call back. 11/13/2023: Continue current regimen and plans 11/14/2023: Continue current regimen and plans 11/14: keeping to self. guarded. pt reports feeling anxious and depressed today; pt stated, I don't know why I feel this way. The haldol helps with my anxiety and voices . Pt reports decreased auditory hallucinations; continues to hear them tell her they will kill her. pt denies HI/VH. Pt reports suicidal ideation to over dose on medication; pt stated, I don't know why I'm suicidal . 11/15: Patient reports feeling depressed today; she continues to report auditory hallucinations. Pt stated, the voices are telling me to kill myself by taking pills or throwing myself out of a window but I don't want to kill myself . Pt denies HI/VH. T/W spoke to patient's sister, Griselda, who reported patient's medication were messed up when she went to [facility] in August but she was fine before going to [facility] . Griselda to send home medication list 11/16: Patient reports feeling better than yesterday ; pt was not able to elaborate as to why she is feeling better. Pt stated, I'm still a little depressed ; pt denies SI/HI/VH/AH at this time. Continues to keep to self in room. encouraged to attend groups. 11/17: Staff reported pt was observed laying on bedroom floor. Pt reports feeling depressed today; pt stated, my voices told me to sleep on the floor and if not my heart would stop. I don't want to . Pt reports she feels she is getting better everyday . pt denies SI/HI/VH. Increase clozaril to 150mg PO daily. 11/18: continue current tx plan. 11/19 continue tx. decrease cogentin to 1mg po BID 11/20 continue tx. 11/21: Keeping to self. Pt continues to report feeling depressed today; pt stated, the voices have decreased but they are telling me they want to stop my heart . Pt reports she would like to go home soon. pt denies SI/HI/VH. continue current tx plan. Patient educated on: diagnosis, medication risk/benefits and therapeutic strategies Informed Consent: understands Reason for continued inpatient stay Substantial Risk for: med/psych decompensation Time Spent With Patient Time: Total time managing care of this patient today _20___ minutes.
[2023-11-22] MEDS: Haloperidol Lactate Oral Conc 10 MG/5 ML ORAL.CONC PO ×2 (11:09→21:24)
[2023-11-22] MEDS: cloZAPine 25 MG TABLET 150 MG PO (14:13)
[2023-11-22 15:34] VITALS: BP 100/60; PULSE 99
[2023-11-22] MEDS: clonazePAM 1 MG TABLET PO (17:52)
[2023-11-22 20:00] VITALS: BP 122/68; PULSE 98; RESP 16; TEMP 36.4; O2SAT 99
[2023-11-22] MEDS: cloZAPine 100 MG TABLET 250 MG PO (21:14)
[2023-11-22 21:19] VITALS: PULSE 68
[2023-11-23] MEDS: hydrOXYzine HCL 25 MG TABLET PO (00:12)
[2023-11-23] MEDS: Omeprazole 20 MG CAPSULE.DR PO (09:23)
[2023-11-23 09:26] VITALS: BP 91/54; PULSE 87; RESP 16; TEMP 36.4; O2SAT 98
[2023-11-23] MEDS: Benztropine Mesylate 1 MG TABLET PO ×2 (09:26→20:34)
[2023-11-23] MEDS: Folic Acid 1 MG TABLET PO (09:26)
[2023-11-23] MEDS: Loratadine 10 MG TABLET PO (09:26)
[2023-11-23] MEDS: Magnesium Oxide 400 MG TABLET PO (09:27)
[2023-11-23] MEDS: Multivitamin TABLET 1 TAB PO (09:27)
[2023-11-23] MEDS: Docusate Sodium 100 MG CAPSULE PO ×2 (09:27→20:34)
[2023-11-23] MEDS: Thyroid,Pork 30 MG TABLET 60 MG PO (09:27)
[2023-11-23 09:29] VITALS: BP 91/54; PULSE 87
--- NOTE | 2023-11-23 11:28 | P.PNPSI_ITS ---
Subjective Subjective Date of Service: 11/23/23 Reason For Visit: Unspecified anxiety disorder Subjective Notes: Conditional Voluntary Interim History: Reviewed with Dr. Louis. Pt continues to report feeling depressed today; pt stated, I feel like my depression is a little better because I have energy to do things . Pt continues to reports auditory hallucinations, pt stated, I'm worried the voices are going to kill me . pt denies SI/HI/VH. Pt reports she is going to try to not lay in bed all the time and go to some groups . Increase: Clozaril to 275mg PO bedtime Medication Compliance: Yes Side effects from medications: No Attending Groups: No Review of Systems Constitutional: Reports as per HPI Eyes: Reports as per HPI Reports as per HPI Cardiovascular: Reports as per HPI Respiratory: Reports as per HPI Gastrointestinal: Reports as per HPI Musculoskeletal: Reports as per HPI Skin/Breast: Reports as per HPI Reports as per HPI Psychiatric: Reports as per HPI Endocrine: Reports as per HPI Hematologic/Lymphatic: Reports as per HPI Allergic/Immunologic: Reports as per HPI Mental Status Exam Mental Status Exam Narrative: Pt is alert and oriented; behavior is cooperative and calm. guarded; dressed in casual attire; mood is described as depressed ; eye contact appropriate; Speech is normal rate, volume and prosody and not pressured; thought process is organized; Thought content is on tx; denies SI/HI/VH. pt reports auditory hallucinations. Diagnostics Vital Signs (24Hr): Vital Signs - 24 hr 11/22/23 15:34 11/22/23 20:00 11/22/23 21:19 Temperature 97.5 F Pulse Rate 99 98 68 Respiratory Rate 16 Blood Pressure 100/60 122/68 Pulse Oximetry 99 Oxygen Delivery Method Room Air 11/23/23 09:26 11/23/23 09:29 Temperature 97.5 F Pulse Rate 87 87 Respiratory Rate 16 Blood Pressure 91/54 L 91/54 L Pulse Oximetry 98 Oxygen Delivery Method Room Air BMI result Body Mass Index 32.0 Labs 11/07/23 07:30 Medications Medications Current Medications Acetaminophen (Acetaminophen 325 Mg Tablet) 650 mg PO Q6H PRN PRN Reason: Headache/Pain Mild Scale (1-3) Last Admin: 11/17/23 23:15 Dose: 650 mg Al Hydroxide/Mg Hydroxide (Magnesium Hydrox/Alum Hydrox 30 Ml Oral.Susp) 30 ml PO Q6H PRN PRN Reason: Heartburn/Nausea Last Admin: 11/07/23 19:05 Dose: 30 ml Benztropine Mesylate (Benztropine Mesylate 1 Mg Tablet) 1 mg PO BID [facility] Last Admin: 11/23/23 09:26 Dose: 1 mg Clonazepam (Clonazepam 1 Mg Tablet) 1 mg PO DAILY@1700 [facility] Last Admin: 11/22/23 17:52 Dose: 1 mg Clozapine (Clozapine 100 Mg Tablet) 250 mg PO BEDTIME [facility] Last Admin: 11/22/23 21:14 Dose: 250 mg Clozapine (Clozapine 25 Mg Tablet) 150 mg PO DAILY@1400 [facility] Last Admin: 11/22/23 14:13 Dose: 150 mg Docusate Sodium (Docusate Sodium 100 Mg Capsule) 100 mg PO BID [facility] Last Admin: 11/23/23 09:27 Dose: 100 mg Folic Acid (Folic Acid 1 Mg Tablet) 1 mg PO DAILY [facility] Last Admin: 11/23/23 09:26 Dose: 1 mg Haloperidol Decanoate (Haloperidol Decanoate 50 Mg/Ml Vial) 100 mg IM Q14D [facility] Last Admin: 11/12/23 17:24 Dose: 100 mg Haloperidol Lactate (Haloperidol Lactate Oral Conc 10 Mg/5 Ml Oral.Conc) 10 mg PO BID PRN PRN Reason: Agitation Last Admin: 11/22/23 21:24 Dose: 10 mg Hydroxyzine HCl (Hydroxyzine Hcl 25 Mg Tablet) 25 mg PO Q6H PRN PRN Reason: Anxiety Last Admin: 11/23/23 00:12 Dose: 25 mg Loratadine (Loratadine 10 Mg Tablet) 10 mg PO DAILY [facility] Last Admin: 11/23/23 09:26 Dose: 10 mg Magnesium Hydroxide (Milk Of Magnesia 30 Ml Oral.Susp) 30 ml PO DAILY PRN PRN Reason: Constipation Magnesium Oxide (Magnesium Oxide 400 Mg Tablet) 400 mg PO DAILY [facility] Last Admin: 11/23/23 09:27 Dose: 400 mg Multivitamins/Vitamin C (Multivitamin Tablet) 1 tab PO DAILY [facility] Last Admin: 11/23/23 09:27 Dose: 1 tab Nicotine Polacrilex (Nicotine Polacrilex 2 Mg Gum) 2 mg BUCCAL Q2H PRN PRN Reason: Nicotine Cravings Pt Own (Dimethyl Fumarate 240 Mg ( Tecfidera) Capsule, Delayed Release(Dr/Ec)) 240 mg PO BID [facility] Last Admin: 11/23/23 09:28 Dose: 240 mg Omeprazole (Omeprazole 20 Mg Capsule.) 20 mg PO DAILY [facility] Last Admin: 11/23/23 09:23 Dose: 20 mg Propranolol HCl (Propranolol Hcl 10 Mg Tablet) 10 mg PO TID [facility]; Protocol Last Admin: 11/23/23 09:29 Dose: Not Given Thyroid (Thyroid,Pork 30 Mg Tablet) 60 mg PO DAILY [facility] Last Admin: 11/23/23 09:27 Dose: 60 mg Vitamin A/Vitamin D (A And D Ointment 56.7 Gm Tube) 1 appl TOPICAL BID PRN; Protocol PRN Reason: Dry Skin Last Admin: 11/11/23 21:32 Dose: 1 appl Allergies Allergies Allergy/AdvReac Type Severity Reaction Status Date / Time Pork/Porcine Containing Allergy Unknown RASH Verified 11/07/23 13:03 Products [PORK/PORCINE CONTAINING PRODUCTS] citalopram Allergy Unknown Verified 10/17/23 02:24 trazodone Allergy Unknown Verified 10/17/23 02:24 ALPHA LIPOIC ACID Allergy Unknown Uncoded 10/17/23 02:24 SALES TEAM MEMBER-3 THYROID TOXICITY Allergy Unknown Uncoded 10/17/23 02:24 Assessment & Plan Assessment & Plan (1) Schizoaffective disorder: Status: Acute Code(s): F25.9 - Schizoaffective disorder, unspecified Plan Presents with command hallucinations, paranoia, correction setting and adherent with medications. Unclear if there are any additional stressors. Need to clarify [place] order details i.e. medications available and dose ranges. With that in mind will not make any medication changes. 11/07: Pt reports hearing more voices prior to coming to the hospital. She reports voices are telling her that someone is going to kill her. She denies SI/HI. She reports feeling anxious because of voices but also reports medication changes helped and feels better than when she came here. We discussed constipation- which she denies given combination of high dose cogentin with clozapine. She reports sleeping well. 11/08: Pt presents guarded; she reports feeling depressed . Pt reports auditory hallucinations at this time; pt stated, I'm still having suicidal thoughts. The voices tell me they want to kill me . Pt reports she does not want to harm herself. pt denies HI/VH. Waiting for [facility] documents. 11/09: Pt stated I feel better than when I came in here. The voices are quieter . Pt presents with slight persistent tremor in both hands; pt reports I usually shake but cogentin and magnesium help ;discussed propanolol;risks/benefits reviewed. Pt started on propanolol 10mg PO TID. Pt denies SI/HI/VH. 11/10: Keeping to self. Guarded. Pt reports feeling anxious and depressed today; pt stated, the voices are telling me again that they can kill me. It was better yesterday . Pt denies SI/HI/VH. [facility] order documents were received. Last Invega Sustenna injection was on 11/05/23. Last Haldol decanoate injection was 10/29/23. Message out to patient's outpatient psychiatrist; waiting for call back. 11/11: Keeping to self. Guarded. Pt reports feeling depressed today; pt stated, I don't know why I feel this way . Pt denies SI/HI/VH/AH at this time. Patient to receive Haldol decanoate 100mg IM today; last IM was 10/29/23 per [facility]. Message out to patient's outpatient psychiatrist; waiting for call back. 11/13/2023: Continue current regimen and plans 11/14/2023: Continue current regimen and plans 11/14: keeping to self. guarded. pt reports feeling anxious and depressed today; pt stated, I don't know why I feel this way. The haldol helps with my anxiety and voices . Pt reports decreased auditory hallucinations; continues to hear them tell her they will kill her. pt denies HI/VH. Pt reports suicidal ideation to over dose on medication; pt stated, I don't know why I'm suicidal . 11/15: Patient reports feeling depressed today; she continues to report auditory hallucinations. Pt stated, the voices are telling me to kill myself by taking pills or throwing myself out of a window but I don't want to kill myself . Pt denies HI/VH. T/W spoke to patient's sister, Griselda, who reported patient's medication were messed up when she went to [facility] in August but she was fine before going to [facility] . Griselda to send home medication list 11/16: Patient reports feeling better than yesterday ; pt was not able to elaborate as to why she is feeling better. Pt stated, I'm still a little depressed ; pt denies SI/HI/VH/AH at this time. Continues to keep to self in room. encouraged to attend groups. 11/17: Staff reported pt was observed laying on bedroom floor. Pt reports feeling depressed today; pt stated, my voices told me to sleep on the floor and if not my heart would stop. I don't want to . Pt reports she feels she is getting better everyday . pt denies SI/HI/VH. Increase clozaril to 150mg PO daily. 11/18: continue current tx plan. 11/19 continue tx. decrease cogentin to 1mg po BID 11/20 continue tx. 11/21: Keeping to self. Pt continues to report feeling depressed today; pt stated, the voices have decreased but they are telling me they want to stop my heart . Pt reports she would like to go home soon. pt denies SI/HI/VH. continue current tx plan. 11/22:Pt continues to report feeling depressed today; pt stated, I feel like my depression is a little better because I have energy to do things . Pt continues to reports auditory hallucinations, pt stated, I'm worried the voices are going to kill me . pt denies SI/HI/VH. Pt reports she is going to try to not lay in bed all the time and go to some groups . Increase: Clozaril to 275mg PO bedtime Patient educated on: diagnosis, medication risk/benefits and therapeutic strategies Informed Consent: understands Reason for continued inpatient stay Substantial Risk for: med/psych decompensation Time Spent With Patient Time: Total time managing care of this patient today _20___ minutes.
[2023-11-23] MEDS: cloZAPine 25 MG TABLET 150 MG PO (14:54)
[2023-11-23] MEDS: Haloperidol Lactate Oral Conc 10 MG/5 ML ORAL.CONC PO (14:55)
[2023-11-23 14:58] VITALS: BP 103/60; PULSE 104
[2023-11-23] MEDS: clonazePAM 1 MG TABLET PO (18:10)
[2023-11-23 18:37] LABS: MANUAL DIFF FLAG NO
[2023-11-23 18:39] LABS: Basophils Percent Auto 0.3 % (0-2); Eosinophils Absolute Auto 0.2 X10*3/uL (0.0-0.4); Eosinophils Percent Auto 2.5 % (0-4); Hematocrit 41.9 % (37.0-47.0); Hemoglobin 14.7 g/dl (12.0-16.0); Imm Gran Abs Auto 0.01 X10*3/uL (0.00-0.03); Imm Gran Pct Auto 0.2 % (0.0-0.4); Lymphocytes Absolute Auto 1.8 X10*3/uL (1.2-4.9); Mean Corpuscular HGB Conc 35.1 g/dl (31.0-35.0); Mean Corpuscular Volume 82.6 fL (80.0-98.0); Monocytes Absolute Auto 0.5 X10*3/uL (0.1-1.2); Monocytes Percent Auto 7.8 % (2-11); Neut%MD 61.2 %; Neutrophils Absolute Auto 3.9 x10*3/uL (2.0-8.3); Neutrophils Percent Auto 61.2 % (45-73); Platelet Count 247 X10*3/uL (160-400); Red Blood Count 5.07 X10*6/uL (4.20-5.50); Red Cell Distribution Width 13.1 % (11.0-16.0); WBCANC 6.3 X10*3/uL; White Blood Count 6.3 X10*3/uL (4.8-10.8)
[2023-11-23 18:46] LABS: Ammonia 29 umol/L (13-55)
[2023-11-23 18:52] LABS: Alanine Aminotransferase 33 U/L (0-31); Albumin Level 4.8 g/dL (3.5-5.0); Alkaline Phosphatase 97 U/L (39-117); Anion Gap 17 (12-20); Aspartate Amino Transferase 20 U/L (5-31); Bilirubin Direct 0.1 mg/dL (0.0-0.5); Bilirubin Total 0.3 mg/dL (0.0-1.0); Blood Urea Nitrogen 16 mg/dL (9-16); Calcium 9.7 mg/dL (8.4-10.2); Carbon Dioxide 23 mmol/L (22-29); Chloride 104 mmol/L (96-108); Creatinine Clr Calc Pharmacy 98.2; Estimated Glomerular Filt Rate > 60; Glucose Random 150 mg/dL (60-115); Sodium 140 mmol/L (135-145); Total Protein 7.5 g/dL (6.5-8.0)
[2023-11-23 20:00] VITALS: BP 100/57; PULSE 100; RESP 16; TEMP 36.1; O2SAT 97
[2023-11-23 20:32] VITALS: BP 131/72; PULSE 98
[2023-11-23] MEDS: Propranolol HCL 10 MG TABLET PO (20:32)
[2023-11-24 07:30] VITALS: BP 140/55; PULSE 75; RESP 14; TEMP 35.5; O2SAT 93
[2023-11-24 09:04] VITALS: BP 140/55; PULSE 75
[2023-11-24] MEDS: Propranolol HCL 10 MG TABLET PO ×3 (09:04→20:26)
[2023-11-24] MEDS: Thyroid,Pork 30 MG TABLET 60 MG PO (09:05)
[2023-11-24] MEDS: Multivitamin TABLET 1 TAB PO (09:05)
[2023-11-24] MEDS: Magnesium Oxide 400 MG TABLET PO (09:05)
[2023-11-24] MEDS: Folic Acid 1 MG TABLET PO (09:05)
[2023-11-24] MEDS: Benztropine Mesylate 1 MG TABLET PO ×2 (09:06→20:27)
[2023-11-24] MEDS: Docusate Sodium 100 MG CAPSULE PO ×2 (09:06→20:27)
[2023-11-24] MEDS: Loratadine 10 MG TABLET PO (09:06)
[2023-11-24] MEDS: Omeprazole 20 MG CAPSULE.DR PO (09:06)
--- NOTE | 2023-11-24 09:19 | P.PNPSI_ITS ---
Subjective Subjective Date of Service: 11/24/23 Reason For Visit: Unspecified anxiety disorder Subjective Notes: Conditional Voluntary Interim History: Reviewed with Dr. Louis. Pt reports feeling similar to yesterday ;continues to reports auditory hallucinations. Pt denies SI/HI/VH. Family meeting set up for 11/29/23 to discuss treatment. Medication Compliance: Yes Side effects from medications: No Attending Groups: No Review of Systems Constitutional: Reports as per HPI Eyes: Reports as per HPI Reports as per HPI Cardiovascular: Reports as per HPI Respiratory: Reports as per HPI Gastrointestinal: Reports as per HPI Musculoskeletal: Reports as per HPI Skin/Breast: Reports as per HPI Reports as per HPI Psychiatric: Reports as per HPI Endocrine: Reports as per HPI Hematologic/Lymphatic: Reports as per HPI Allergic/Immunologic: Reports as per HPI Mental Status Exam Mental Status Exam Narrative: Pt is alert and oriented; behavior is cooperative and calm. guarded; dressed in casual attire; mood is described as depressed ; eye contact appropriate; Speech is normal rate, volume and prosody and not pressured; thought process is organized; Thought content is on tx; denies SI/HI/VH. pt reports auditory hallucinations. Diagnostics Vital Signs (24Hr): Vital Signs - 24 hr 11/23/23 09:26 11/23/23 09:29 11/23/23 14:58 Temperature 97.5 F Pulse Rate 87 87 104 H Respiratory Rate 16 Blood Pressure 91/54 L 91/54 L 103/60 Pulse Oximetry 98 Oxygen Delivery Method Room Air 11/23/23 20:00 11/23/23 20:32 11/24/23 07:30 Temperature 97 F 95.9 F L Pulse Rate 100 98 75 Respiratory Rate 16 14 Blood Pressure 100/57 L 131/72 140/55 H Pulse Oximetry 97 93 Oxygen Delivery Method Room Air Room Air 11/24/23 09:04 Temperature Pulse Rate 75 Respiratory Rate Blood Pressure 140/55 H Pulse Oximetry Oxygen Delivery Method BMI result Body Mass Index 32.0 Labs 11/23/23 18:29 11/23/23 18:29 Labs: Laboratory Results - last 48 hr 11/23/23 11/23/23 18:28 18:29 WBC 6.3 RBC 5.07 Hgb 14.7 D Hct 41.9 MCV 82.6 MCH 29.0 MCHC 35.1 H RDW 13.1 Plt Count 247 MPV 10.0 Immature Gran % (Auto) 0.2 Neut % (Auto) 61.2 Lymph % (Auto) 28.0 [place] % (Auto) 7.8 Eos % (Auto) 2.5 Baso % (Auto) 0.3 Lymph # (Auto) 1.8 [place] # (Auto) 0.5 Eos # (Auto) 0.2 Baso # (Auto) 0.0 Abs Immat Gran (auto) 0.01 Absolute Neuts (auto) 3.9 Absolute Nucleated RBC 0.000 Nucleated RBC % (auto) 0.0 Sodium 140 Potassium 4.0 Chloride 104 Carbon Dioxide 23 Anion Gap 17 BUN 16 Creatinine 0.83 Estim Creat Clear Calc 98.2 Estimated GFR > 60 Random Glucose 150 H Calcium 9.7 Total Bilirubin 0.3 Direct Bilirubin 0.1 AST 20 ALT 33 H Alkaline Phosphatase 97 Ammonia 29 Total Protein 7.5 Albumin 4.8 Medications Medications Current Medications Acetaminophen (Acetaminophen 325 Mg Tablet) 650 mg PO Q6H PRN PRN Reason: Headache/Pain Mild Scale (1-3) Last Admin: 11/17/23 23:15 Dose: 650 mg Al Hydroxide/Mg Hydroxide (Magnesium Hydrox/Alum Hydrox 30 Ml Oral.Susp) 30 ml PO Q6H PRN PRN Reason: Heartburn/Nausea Last Admin: 11/07/23 19:05 Dose: 30 ml Benztropine Mesylate (Benztropine Mesylate 1 Mg Tablet) 1 mg PO BID [facility] Last Admin: 11/24/23 09:06 Dose: 1 mg Clonazepam (Clonazepam 1 Mg Tablet) 1 mg PO DAILY@1700 [facility] Last Admin: 11/23/23 18:10 Dose: 1 mg Clozapine 200 mg/ Clozapine 75 (mg) 275 mg PO BEDTIME [facility] Last Admin: 11/23/23 20:33 Dose: 275 mg Clozapine (Clozapine 100 Mg Tablet) 150 mg PO DAILY@1400 [facility] Docusate Sodium (Docusate Sodium 100 Mg Capsule) 100 mg PO BID [facility] Last Admin: 11/24/23 09:06 Dose: 100 mg Folic Acid (Folic Acid 1 Mg Tablet) 1 mg PO DAILY [facility] Last Admin: 11/24/23 09:05 Dose: 1 mg Haloperidol Decanoate (Haloperidol Decanoate 50 Mg/Ml Vial) 100 mg IM Q14D [facility] Last Admin: 11/12/23 17:24 Dose: 100 mg Haloperidol Lactate (Haloperidol Lactate Oral Conc 10 Mg/5 Ml Oral.Conc) 10 mg PO BID PRN PRN Reason: Agitation Last Admin: 11/23/23 14:55 Dose: 10 mg Hydroxyzine HCl (Hydroxyzine Hcl 25 Mg Tablet) 25 mg PO Q6H PRN PRN Reason: Anxiety Last Admin: 11/23/23 00:12 Dose: 25 mg Loratadine (Loratadine 10 Mg Tablet) 10 mg PO DAILY [facility] Last Admin: 11/24/23 09:06 Dose: 10 mg Magnesium Hydroxide (Milk Of Magnesia 30 Ml Oral.Susp) 30 ml PO DAILY PRN PRN Reason: Constipation Magnesium Oxide (Magnesium Oxide 400 Mg Tablet) 400 mg PO DAILY [facility] Last Admin: 11/24/23 09:05 Dose: 400 mg Multivitamins/Vitamin C (Multivitamin Tablet) 1 tab PO DAILY [facility] Last Admin: 11/24/23 09:05 Dose: 1 tab Pt Own (Dimethyl Fumarate 240 Mg ( Tecfidera) Capsule, Delayed Release(Dr/Ec)) 240 mg PO BID [facility] Last Admin: 11/24/23 09:06 Dose: 240 mg Omeprazole (Omeprazole 20 Mg Capsule.Dr) 20 mg PO DAILY [facility] Last Admin: 11/24/23 09:06 Dose: 20 mg Propranolol HCl (Propranolol Hcl 10 Mg Tablet) 10 mg PO TID [facility]; Protocol Last Admin: 11/24/23 09:04 Dose: 10 mg Thyroid (Thyroid,Pork 30 Mg Tablet) 60 mg PO DAILY [facility] Last Admin: 11/24/23 09:05 Dose: 60 mg Vitamin A/Vitamin D (A And D Ointment 56.7 Gm Tube) 1 appl TOPICAL BID PRN; Protocol PRN Reason: Dry Skin Last Admin: 11/11/23 21:32 Dose: 1 appl Allergies Allergies Allergy/AdvReac Type Severity Reaction Status Date / Time Pork/Porcine Containing Allergy Unknown RASH Verified 11/07/23 13:03 Products [PORK/PORCINE CONTAINING PRODUCTS] citalopram Allergy Unknown Verified 10/17/23 02:24 trazodone Allergy Unknown Verified 10/17/23 02:24 ALPHA LIPOIC ACID Allergy Unknown Uncoded 10/17/23 02:24 WAREHOUSE REPRESENTATIVE-3 THYROID TOXICITY Allergy Unknown Uncoded 10/17/23 02:24 Assessment & Plan Assessment & Plan (1) Schizoaffective disorder: Status: Acute Code(s): F25.9 - Schizoaffective disorder, unspecified Plan Presents with command hallucinations, paranoia, correction setting and adherent with medications. Unclear if there are any additional stressors. Need to clarify [place] order details i.e. medications available and dose ranges. With that in mind will not make any medication changes. 11/07: Pt reports hearing more voices prior to coming to the hospital. She reports voices are telling her that someone is going to kill her. She denies SI/HI. She reports feeling anxious because of voices but also reports medication changes helped and feels better than when she came here. We discussed constipation- which she denies given combination of high dose cogentin with clozapine. She reports sleeping well. 11/08: Pt presents guarded; she reports feeling depressed . Pt reports auditory hallucinations at this time; pt stated, I'm still having suicidal thoughts. The voices tell me they want to kill me . Pt reports she does not want to harm herself. pt denies HI/VH. Waiting for [facility] documents. 11/09: Pt stated I feel better than when I came in here. The voices are quieter . Pt presents with slight persistent tremor in both hands; pt reports I usually shake but cogentin and magnesium help ;discussed propanolol;risks/benefits reviewed. Pt started on propanolol 10mg PO TID. Pt denies SI/HI/VH. 11/10: Keeping to self. Guarded. Pt reports feeling anxious and depressed today; pt stated, the voices are telling me again that they can kill me. It was better yesterday . Pt denies SI/HI/VH. [facility] order documents were received. Last Invega Sustenna injection was on 11/05/23. Last Haldol decanoate injection was 10/29/23. Message out to patient's outpatient psychiatrist; waiting for call back. 11/11: Keeping to self. Guarded. Pt reports feeling depressed today; pt stated, I don't know why I feel this way . Pt denies SI/HI/VH/AH at this time. Patient to receive Haldol decanoate 100mg IM today; last IM was 10/29/23 per [facility]. Message out to patient's outpatient psychiatrist; waiting for call back. 11/13/2023: Continue current regimen and plans 11/14/2023: Continue current regimen and plans 11/14: keeping to self. guarded. pt reports feeling anxious and depressed today; pt stated, I don't know why I feel this way. The haldol helps with my anxiety and voices . Pt reports decreased auditory hallucinations; continues to hear them tell her they will kill her. pt denies HI/VH. Pt reports suicidal ideation to over dose on medication; pt stated, I don't know why I'm suicidal . 11/15: Patient reports feeling depressed today; she continues to report auditory hallucinations. Pt stated, the voices are telling me to kill myself by taking pills or throwing myself out of a window but I don't want to kill myself . Pt denies HI/VH. T/W spoke to patient's sister, Griselda, who reported patient's medication were messed up when she went to [facility] in August but she was fine before going to [facility] . Griselda to send home medication list 11/16: Patient reports feeling better than yesterday ; pt was not able to elaborate as to why she is feeling better. Pt stated, I'm still a little depressed ; pt denies SI/HI/VH/AH at this time. Continues to keep to self in room. encouraged to attend groups. 11/17: Staff reported pt was observed laying on bedroom floor. Pt reports feeling depressed today; pt stated, my voices told me to sleep on the floor and if not my heart would stop. I don't want to . Pt reports she feels she is getting better everyday . pt denies SI/HI/VH. Increase clozaril to 150mg PO daily. 11/18: continue current tx plan. 11/19 continue tx. decrease cogentin to 1mg po BID 11/20 continue tx. 11/21: Keeping to self. Pt continues to report feeling depressed today; pt stated, the voices have decreased but they are telling me they want to stop my heart . Pt reports she would like to go home soon. pt denies SI/HI/VH. continue current tx plan. 11/22:Pt continues to report feeling depressed today; pt stated, I feel like my depression is a little better because I have energy to do things . Pt continues to reports auditory hallucinations, pt stated, I'm worried the voices are going to kill me . pt denies SI/HI/VH. Pt reports she is going to try to not lay in bed all the time and go to some groups . Increase: Clozaril to 275mg PO bedtime 11/23: Pt reports feeling similar to yesterday ;continues to reports auditory hallucinations. Pt denies SI/HI/VH. Family meeting set up for 11/29/23 to discuss treatment. Patient educated on: medication risk/benefits and therapeutic strategies Informed Consent: understands Reason for continued inpatient stay Substantial Risk for: med/psych decompensation Time Spent With Patient Time: Total time managing care of this patient today _20___ minutes.
[2023-11-24 14:12] VITALS: BP 135/83; PULSE 99
[2023-11-24] MEDS: cloZAPine 100 MG TABLET 150 MG PO (14:12)
[2023-11-24] MEDS: clonazePAM 1 MG TABLET PO (17:45)
[2023-11-24 20:00] VITALS: BP 114/66; PULSE 102; TEMP 35.4; O2SAT 96
[2023-11-24] MEDS: Haloperidol Lactate Oral Conc 10 MG/5 ML ORAL.CONC PO (20:25)
[2023-11-24 20:26] VITALS: BP 114/66; PULSE 102
[2023-11-24 20:39] VITALS: TEMP 36.4
[2023-11-25 08:00] VITALS: BP 99/56; PULSE 92; RESP 18; TEMP 36.4; O2SAT 98
--- NOTE | 2023-11-25 09:16 | HO.PSYCHPN ---
Subjective Subjective Date of Service: 11/25/23 Reason For Visit: Unspecified anxiety disorder Subjective Notes: Conditional Voluntary Interim History: Reviewed with Dr. Louis. Staff reported, pt attended multiple groups yesterday afternoon. Pt reports she continues to feel depressed but feels like it's getting better ; pt was unable to provide details as to how she feels her mood is improving. Pt stated decreased auditory hallucinations. pt denies SI/HI/VH. She reports she will continue to try to go to more groups . Medication Compliance: Yes Side effects from medications: No Attending Groups: Intermittent Review of Systems Constitutional: Reports as per HPI Eyes: Reports as per HPI Reports as per HPI Cardiovascular: Reports as per HPI Respiratory: Reports as per HPI Gastrointestinal: Reports as per HPI Musculoskeletal: Reports as per HPI Skin/Breast: Reports as per HPI Reports as per HPI Psychiatric: Reports as per HPI Endocrine: Reports as per HPI Hematologic/Lymphatic: Reports as per HPI Allergic/Immunologic: Reports as per HPI Mental Status Exam Mental Status Exam Narrative: Pt is alert and oriented; behavior is cooperative and calm. guarded; dressed in casual attire; mood is described as depressed ; eye contact appropriate; Speech is normal rate, volume and prosody and not pressured; thought process is organized; Thought content is on tx; denies SI/HI/VH. pt reports auditory hallucinations. Diagnostics Vital Signs (24Hr): Vital Signs - 24 hr 11/24/23 14:12 11/24/23 20:00 11/24/23 20:26 Temperature 95.8 F L Pulse Rate 99 102 H 102 H Blood Pressure 135/83 114/66 114/66 Pulse Oximetry 96 Oxygen Delivery Method Room Air 11/24/23 20:39 Temperature 97.6 F Pulse Rate Blood Pressure Pulse Oximetry Oxygen Delivery Method BMI result Body Mass Index 32.0 Labs 11/23/23 18:29 11/23/23 18:29 Labs: Laboratory Results - last 48 hr 11/23/23 11/23/23 18:28 18:29 WBC 6.3 RBC 5.07 Hgb 14.7 D Hct 41.9 MCV 82.6 MCH 29.0 MCHC 35.1 H RDW 13.1 Plt Count 247 MPV 10.0 Immature Gran % (Auto) 0.2 Neut % (Auto) 61.2 Lymph % (Auto) 28.0 Yancey % (Auto) 7.8 Eos % (Auto) 2.5 Baso % (Auto) 0.3 Lymph # (Auto) 1.8 Yancey # (Auto) 0.5 Eos # (Auto) 0.2 Baso # (Auto) 0.0 Abs Immat Gran (auto) 0.01 Absolute Neuts (auto) 3.9 Absolute Nucleated RBC 0.000 Nucleated RBC % (auto) 0.0 Sodium 140 Potassium 4.0 Chloride 104 Carbon Dioxide 23 Anion Gap 17 BUN 16 Creatinine 0.83 Estim Creat Clear Calc 98.2 Estimated GFR > 60 Random Glucose 150 H Calcium 9.7 Total Bilirubin 0.3 Direct Bilirubin 0.1 AST 20 ALT 33 H Alkaline Phosphatase 97 Ammonia 29 Total Protein 7.5 Albumin 4.8 Medications Medications Current Medications Acetaminophen (Acetaminophen 325 Mg Tablet) 650 mg PO Q6H PRN PRN Reason: Headache/Pain Mild Scale (1-3) Last Admin: 11/17/23 23:15 Dose: 650 mg Al Hydroxide/Mg Hydroxide (Magnesium Hydrox/Alum Hydrox 30 Ml Oral.Susp) 30 ml PO Q6H PRN PRN Reason: Heartburn/Nausea Last Admin: 11/07/23 19:05 Dose: 30 ml Benztropine Mesylate (Benztropine Mesylate 1 Mg Tablet) 1 mg PO BID [facility] Last Admin: 11/24/23 20:27 Dose: 1 mg Clonazepam (Clonazepam 1 Mg Tablet) 1 mg PO DAILY@1700 [facility] Last Admin: 11/24/23 17:45 Dose: 1 mg Clozapine 200 mg/ Clozapine 75 (mg) 275 mg PO BEDTIME [facility] Last Admin: 11/24/23 20:27 Dose: 275 mg Clozapine (Clozapine 100 Mg Tablet) 150 mg PO DAILY@1400 [facility] Last Admin: 11/24/23 14:12 Dose: 150 mg Docusate Sodium (Docusate Sodium 100 Mg Capsule) 100 mg PO BID [facility] Last Admin: 11/24/23 20:27 Dose: 100 mg Folic Acid (Folic Acid 1 Mg Tablet) 1 mg PO DAILY [facility] Last Admin: 11/24/23 09:05 Dose: 1 mg Haloperidol Decanoate (Haloperidol Decanoate 50 Mg/Ml Vial) 100 mg IM Q14D [facility] Last Admin: 11/12/23 17:24 Dose: 100 mg Haloperidol Lactate (Haloperidol Lactate Oral Conc 10 Mg/5 Ml Oral.Conc) 10 mg PO BID PRN PRN Reason: Agitation Last Admin: 11/24/23 20:25 Dose: 10 mg Hydroxyzine HCl (Hydroxyzine Hcl 25 Mg Tablet) 25 mg PO Q6H PRN PRN Reason: Anxiety Last Admin: 11/23/23 00:12 Dose: 25 mg Loratadine (Loratadine 10 Mg Tablet) 10 mg PO DAILY [facility] Last Admin: 11/24/23 09:06 Dose: 10 mg Magnesium Hydroxide (Milk Of Magnesia 30 Ml Oral.Susp) 30 ml PO DAILY PRN PRN Reason: Constipation Magnesium Oxide (Magnesium Oxide 400 Mg Tablet) 400 mg PO DAILY [facility] Last Admin: 11/24/23 09:05 Dose: 400 mg Multivitamins/Vitamin C (Multivitamin Tablet) 1 tab PO DAILY [facility] Last Admin: 11/24/23 09:05 Dose: 1 tab Pt Own (Dimethyl Fumarate 240 Mg ( Tecfidera) Capsule, Delayed Release(Dr/Ec)) 240 mg PO BID [facility] Last Admin: 11/24/23 20:25 Dose: 240 mg Omeprazole (Omeprazole 20 Mg Capsule.Dr) 20 mg PO DAILY [facility] Last Admin: 11/24/23 09:06 Dose: 20 mg Propranolol HCl (Propranolol Hcl 10 Mg Tablet) 10 mg PO TID [facility]; Protocol Last Admin: 11/24/23 20:26 Dose: 10 mg Thyroid (Thyroid,Pork 30 Mg Tablet) 60 mg PO DAILY [facility] Last Admin: 11/24/23 09:05 Dose: 60 mg Vitamin A/Vitamin D (A And D Ointment 56.7 Gm Tube) 1 appl TOPICAL BID PRN; Protocol PRN Reason: Dry Skin Last Admin: 11/11/23 21:32 Dose: 1 appl Allergies Allergies Allergy/AdvReac Type Severity Reaction Status Date / Time Pork/Porcine Containing Allergy Unknown RASH Verified 11/07/23 13:03 Products [PORK/PORCINE CONTAINING PRODUCTS] citalopram Allergy Unknown Verified 10/17/23 02:24 trazodone Allergy Unknown Verified 10/17/23 02:24 ALPHA LIPOIC ACID Allergy Unknown Uncoded 10/17/23 02:24 EXPERIMENTAL PHYSICIST-3 THYROID TOXICITY Allergy Unknown Uncoded 10/17/23 02:24 Assessment & Plan Assessment & Plan (1) Schizoaffective disorder: Status: Acute Code(s): F25.9 - Schizoaffective disorder, unspecified Plan Presents with command hallucinations, paranoia, intermediate setting and adherent with medications. Unclear if there are any additional stressors. Need to clarify [facility] order details i.e. medications available and dose ranges. With that in mind will not make any medication changes. 11/07: Pt reports hearing more voices prior to coming to the hospital. She reports voices are telling her that someone is going to kill her. She denies SI/HI. She reports feeling anxious because of voices but also reports medication changes helped and feels better than when she came here. We discussed constipation- which she denies given combination of high dose cogentin with clozapine. She reports sleeping well. 11/08: Pt presents guarded; she reports feeling depressed . Pt reports auditory hallucinations at this time; pt stated, I'm still having suicidal thoughts. The voices tell me they want to kill me . Pt reports she does not want to harm herself. pt denies HI/VH. Waiting for [facility] documents. 11/09: Pt stated I feel better than when I came in here. The voices are quieter . Pt presents with slight persistent tremor in both hands; pt reports I usually shake but cogentin and magnesium help ;discussed propanolol;risks/benefits reviewed. Pt started on propanolol 10mg PO TID. Pt denies SI/HI/VH. 11/10: Keeping to self. Guarded. Pt reports feeling anxious and depressed today; pt stated, the voices are telling me again that they can kill me. It was better yesterday . Pt denies SI/HI/VH. [facility] order documents were received. Last Invega Sustenna injection was on 11/05/23. Last Haldol decanoate injection was 10/29/23. Message out to patient's outpatient psychiatrist; waiting for call back. 11/11: Keeping to self. Guarded. Pt reports feeling depressed today; pt stated, I don't know why I feel this way . Pt denies SI/HI/VH/AH at this time. Patient to receive Haldol decanoate 100mg IM today; last IM was 10/29/23 per [facility]. Message out to patient's outpatient psychiatrist; waiting for call back. 11/13/2023: Continue current regimen and plans 11/14/2023: Continue current regimen and plans 11/14: keeping to self. guarded. pt reports feeling anxious and depressed today; pt stated, I don't know why I feel this way. The haldol helps with my anxiety and voices . Pt reports decreased auditory hallucinations; continues to hear them tell her they will kill her. pt denies HI/VH. Pt reports suicidal ideation to over dose on medication; pt stated, I don't know why I'm suicidal . 11/15: Patient reports feeling depressed today; she continues to report auditory hallucinations. Pt stated, the voices are telling me to kill myself by taking pills or throwing myself out of a window but I don't want to kill myself . Pt denies HI/VH. T/W spoke to patient's sister, Griselda, who reported patient's medication were messed up when she went to [facility] in August but she was fine before going to [facility] . Griselda to send home medication list 11/16: Patient reports feeling better than yesterday ; pt was not able to elaborate as to why she is feeling better. Pt stated, I'm still a little depressed ; pt denies SI/HI/VH/AH at this time. Continues to keep to self in room. encouraged to attend groups. 11/17: Staff reported pt was observed laying on bedroom floor. Pt reports feeling depressed today; pt stated, my voices told me to sleep on the floor and if not my heart would stop. I don't want to . Pt reports she feels she is getting better everyday . pt denies SI/HI/VH. Increase clozaril to 150mg PO daily. 11/18: continue current tx plan. 11/19 continue tx. decrease cogentin to 1mg po BID 11/20 continue tx. 11/21: Keeping to self. Pt continues to report feeling depressed today; pt stated, the voices have decreased but they are telling me they want to stop my heart . Pt reports she would like to go home soon. pt denies SI/HI/VH. continue current tx plan. 11/22:Pt continues to report feeling depressed today; pt stated, I feel like my depression is a little better because I have energy to do things . Pt continues to reports auditory hallucinations, pt stated, I'm worried the voices are going to kill me . pt denies SI/HI/VH. Pt reports she is going to try to not lay in bed all the time and go to some groups . Increase: Clozaril to 275mg PO bedtime 11/23: Pt reports feeling similar to yesterday ;continues to reports auditory hallucinations. Pt denies SI/HI/VH. Family meeting set up for 11/29/23 to discuss treatment. 11/24: Staff reported, pt attended multiple groups yesterday afternoon. Pt reports she continues to feel depressed but feels like it's getting better ; pt was unable to provide details as to how she feels her mood is improving. Pt stated decreased auditory hallucinations. pt denies SI/HI/VH. She reports she will continue to try to go to more groups . continue current tx plan. Patient educated on: diagnosis, medication risk/benefits and therapeutic strategies Informed Consent: understands Reason for continued inpatient stay Substantial Risk for: med/psych decompensation Time Spent With Patient Time: Total time managing care of this patient today _20___ minutes.
[2023-11-25] MEDS: Omeprazole 20 MG CAPSULE.DR PO (09:49)
[2023-11-25] MEDS: Loratadine 10 MG TABLET PO (09:49)
[2023-11-25] MEDS: Benztropine Mesylate 1 MG TABLET PO ×2 (09:49→21:30)
[2023-11-25] MEDS: Thyroid,Pork 30 MG TABLET 60 MG PO (09:49)
[2023-11-25] MEDS: Docusate Sodium 100 MG CAPSULE PO ×2 (09:49→21:30)
[2023-11-25] MEDS: Folic Acid 1 MG TABLET PO (09:49)
[2023-11-25 09:50] VITALS: BP 99/56; PULSE 92
[2023-11-25] MEDS: Multivitamin TABLET 1 TAB PO (09:50)
[2023-11-25] MEDS: Magnesium Oxide 400 MG TABLET PO (09:50)
[2023-11-25] MEDS: Propranolol HCL 10 MG TABLET PO ×3 (09:50→21:30)
[2023-11-25] MEDS: Acetaminophen 325 MG TABLET 650 MG PO (12:05)
[2023-11-25] MEDS: cloZAPine 100 MG TABLET 150 MG PO (13:45)
[2023-11-25 15:04] VITALS: BP 105/55; PULSE 93
[2023-11-25] MEDS: clonazePAM 1 MG TABLET PO (17:38)
[2023-11-25] MEDS: A and D Ointment 56.7 GM TUBE 1 APPL TOPICAL (19:30)
[2023-11-25 21:22] VITALS: BP 129/80; PULSE 102; RESP 16; TEMP 36.5; O2SAT 99
[2023-11-25] MEDS: Haloperidol Lactate Oral Conc 10 MG/5 ML ORAL.CONC PO (21:30)
[2023-11-25] MEDS: hydrOXYzine HCL 25 MG TABLET PO (22:45)
[2023-11-26] MEDS: Acetaminophen 325 MG TABLET 650 MG PO (00:45)
[2023-11-26 08:00] VITALS: BP 96/56; PULSE 78; RESP 18; TEMP 36.6; O2SAT 98
--- NOTE | 2023-11-26 08:52 | P.PNPSI_ITS ---
Subjective Subjective Date of Service: 11/26/23 Reason For Visit: Unspecified anxiety disorder Subjective Notes: Conditional Voluntary Interim History: Reviewed with Dr. Louis. Pt reports feeling good today; pt stated, I'm anxious but not depressed today. I don't know why . Pt continues to report auditory hallucinations but states they are decreasing. Pt denies SI/HI/VH. Pt to receive Haldol Decanoate IM today; pt aware. Medication Compliance: Yes Side effects from medications: No Attending Groups: Intermittent Review of Systems Constitutional: Reports as per HPI Eyes: Reports as per HPI Reports as per HPI Cardiovascular: Reports as per HPI Respiratory: Reports as per HPI Gastrointestinal: Reports as per HPI Musculoskeletal: Reports as per HPI Skin/Breast: Reports as per HPI Reports as per HPI Psychiatric: Reports as per HPI Endocrine: Reports as per HPI Hematologic/Lymphatic: Reports as per HPI Allergic/Immunologic: Reports as per HPI Mental Status Exam Mental Status Exam Narrative: Pt is alert and oriented; behavior is cooperative and calm. guarded; dressed in casual attire; mood is described as anxious ; eye contact appropriate; Speech is normal rate, volume and prosody and not pressured; thought process is organized; Thought content is on tx; denies SI/HI/VH. pt reports auditory hallucinations. Diagnostics Vital Signs (24Hr): Vital Signs - 24 hr 11/25/23 09:50 11/25/23 15:04 11/25/23 21:22 Temperature 97.7 F Pulse Rate 92 93 102 H Respiratory Rate 16 Blood Pressure 99/56 L 105/55 L 129/80 Pulse Oximetry 99 Oxygen Delivery Method Room Air BMI result Body Mass Index 32.0 Labs 11/23/23 18:29 11/23/23 18:29 Medications Medications Current Medications Acetaminophen (Acetaminophen 325 Mg Tablet) 650 mg PO Q6H PRN PRN Reason: Headache/Pain Mild Scale (1-3) Last Admin: 11/26/23 00:45 Dose: 650 mg Al Hydroxide/Mg Hydroxide (Magnesium Hydrox/Alum Hydrox 30 Ml Oral.Susp) 30 ml PO Q6H PRN PRN Reason: Heartburn/Nausea Last Admin: 11/07/23 19:05 Dose: 30 ml Benztropine Mesylate (Benztropine Mesylate 1 Mg Tablet) 1 mg PO BID [facility] Last Admin: 11/25/23 21:30 Dose: 1 mg Clonazepam (Clonazepam 1 Mg Tablet) 1 mg PO DAILY@1700 [facility] Last Admin: 11/25/23 17:38 Dose: 1 mg Clozapine 200 mg/ Clozapine 75 (mg) 275 mg PO BEDTIME [facility] Last Admin: 11/25/23 21:29 Dose: 275 mg Clozapine (Clozapine 100 Mg Tablet) 150 mg PO DAILY@1400 [facility] Last Admin: 11/25/23 13:45 Dose: 150 mg Docusate Sodium (Docusate Sodium 100 Mg Capsule) 100 mg PO BID [facility] Last Admin: 11/25/23 21:30 Dose: 100 mg Folic Acid (Folic Acid 1 Mg Tablet) 1 mg PO DAILY [facility] Last Admin: 11/25/23 09:49 Dose: 1 mg Haloperidol Decanoate (Haloperidol Decanoate 50 Mg/Ml Vial) 100 mg IM Q14D [facility] Last Admin: 11/12/23 17:24 Dose: 100 mg Haloperidol Lactate (Haloperidol Lactate Oral Conc 10 Mg/5 Ml Oral.Conc) 10 mg PO BID PRN PRN Reason: Agitation Last Admin: 11/25/23 21:30 Dose: 10 mg Hydroxyzine HCl (Hydroxyzine Hcl 25 Mg Tablet) 25 mg PO Q6H PRN PRN Reason: Anxiety Last Admin: 11/25/23 22:45 Dose: 25 mg Loratadine (Loratadine 10 Mg Tablet) 10 mg PO DAILY [facility] Last Admin: 11/25/23 09:49 Dose: 10 mg Magnesium Hydroxide (Milk Of Magnesia 30 Ml Oral.Susp) 30 ml PO DAILY PRN PRN Reason: Constipation Magnesium Oxide (Magnesium Oxide 400 Mg Tablet) 400 mg PO DAILY [facility] Last Admin: 11/25/23 09:50 Dose: 400 mg Multivitamins/Vitamin C (Multivitamin Tablet) 1 tab PO DAILY [facility] Last Admin: 11/25/23 09:50 Dose: 1 tab Pt Own (Dimethyl Fumarate 240 Mg ( Tecfidera) Capsule, Delayed Release(Dr/Ec)) 240 mg PO BID [facility] Last Admin: 11/25/23 21:33 Dose: 240 mg Omeprazole (Omeprazole 20 Mg Capsule.Dr) 20 mg PO DAILY [facility] Last Admin: 11/25/23 09:49 Dose: 20 mg Propranolol HCl (Propranolol Hcl 10 Mg Tablet) 10 mg PO TID [facility]; Protocol Last Admin: 11/25/23 21:30 Dose: 10 mg Thyroid (Thyroid,Pork 30 Mg Tablet) 60 mg PO DAILY [facility] Last Admin: 11/25/23 09:49 Dose: 60 mg Vitamin A/Vitamin D (A And D Ointment 56.7 Gm Tube) 1 appl TOPICAL BID PRN; Protocol PRN Reason: Dry Skin Last Admin: 11/25/23 19:30 Dose: 1 appl Allergies Allergies Allergy/AdvReac Type Severity Reaction Status Date / Time Pork/Porcine Containing Allergy Unknown RASH Verified 11/07/23 13:03 Products [PORK/PORCINE CONTAINING PRODUCTS] citalopram Allergy Unknown Verified 10/17/23 02:24 trazodone Allergy Unknown Verified 10/17/23 02:24 ALPHA LIPOIC ACID Allergy Unknown Uncoded 10/17/23 02:24 PREPARED FOODS SERVICE TEAM MEMBER-3 THYROID TOXICITY Allergy Unknown Uncoded 10/17/23 02:24 Assessment & Plan Assessment & Plan (1) Schizoaffective disorder: Status: Acute Code(s): F25.9 - Schizoaffective disorder, unspecified Plan Presents with command hallucinations, paranoia, penitentiary setting and adherent with medications. Unclear if there are any additional stressors. Need to clarify [facility] order details i.e. medications available and dose ranges. With that in mind will not make any medication changes. 11/07: Pt reports hearing more voices prior to coming to the hospital. She reports voices are telling her that someone is going to kill her. She denies SI/HI. She reports feeling anxious because of voices but also reports medication changes helped and feels better than when she came here. We discussed constipation- which she denies given combination of high dose cogentin with clozapine. She reports sleeping well. 11/08: Pt presents guarded; she reports feeling depressed . Pt reports auditory hallucinations at this time; pt stated, I'm still having suicidal thoughts. The voices tell me they want to kill me . Pt reports she does not want to harm herself. pt denies HI/VH. Waiting for [facility] documents. 11/09: Pt stated I feel better than when I came in here. The voices are quieter . Pt presents with slight persistent tremor in both hands; pt reports I usually shake but cogentin and magnesium help ;discussed propanolol;risks/benefits reviewed. Pt started on propanolol 10mg PO TID. Pt denies SI/HI/VH. 11/10: Keeping to self. Guarded. Pt reports feeling anxious and depressed today; pt stated, the voices are telling me again that they can kill me. It was better yesterday . Pt denies SI/HI/VH. [facility] order documents were received. Last Invega Sustenna injection was on 11/05/23. Last Haldol decanoate injection was 10/29/23. Message out to patient's outpatient psychiatrist; waiting for call back. 11/11: Keeping to self. Guarded. Pt reports feeling depressed today; pt stated, I don't know why I feel this way . Pt denies SI/HI/VH/AH at this time. Patient to receive Haldol decanoate 100mg IM today; last IM was 10/29/23 per [facility]. Message out to patient's outpatient psychiatrist; waiting for call back. 11/13/2023: Continue current regimen and plans 11/14/2023: Continue current regimen and plans 11/14: keeping to self. guarded. pt reports feeling anxious and depressed today; pt stated, I don't know why I feel this way. The haldol helps with my anxiety and voices . Pt reports decreased auditory hallucinations; continues to hear them tell her they will kill her. pt denies HI/VH. Pt reports suicidal ideation to over dose on medication; pt stated, I don't know why I'm suicidal . 11/15: Patient reports feeling depressed today; she continues to report auditory hallucinations. Pt stated, the voices are telling me to kill myself by taking pills or throwing myself out of a window but I don't want to kill myself . Pt denies HI/VH. T/W spoke to patient's sister, Griselda, who reported patient's medication were messed up when she went to [facility] in August but she was fine before going to [facility] . Griselda to send home medication list 11/16: Patient reports feeling better than yesterday ; pt was not able to elaborate as to why she is feeling better. Pt stated, I'm still a little depressed ; pt denies SI/HI/VH/AH at this time. Continues to keep to self in room. encouraged to attend groups. 11/17: Staff reported pt was observed laying on bedroom floor. Pt reports feeling depressed today; pt stated, my voices told me to sleep on the floor and if not my heart would stop. I don't want to . Pt reports she feels she is getting better everyday . pt denies SI/HI/VH. Increase clozaril to 150mg PO daily. 11/18: continue current tx plan. 11/19 continue tx. decrease cogentin to 1mg po BID 11/20 continue tx. 11/21: Keeping to self. Pt continues to report feeling depressed today; pt stated, the voices have decreased but they are telling me they want to stop my heart . Pt reports she would like to go home soon. pt denies SI/HI/VH. continue current tx plan. 11/22:Pt continues to report feeling depressed today; pt stated, I feel like my depression is a little better because I have energy to do things . Pt continues to reports auditory hallucinations, pt stated, I'm worried the voices are going to kill me . pt denies SI/HI/VH. Pt reports she is going to try to not lay in bed all the time and go to some groups . Increase: Clozaril to 275mg PO bedtime 11/23: Pt reports feeling similar to yesterday ;continues to reports auditory hallucinations. Pt denies SI/HI/VH. Family meeting set up for 11/29/23 to discuss treatment. 11/24: Staff reported, pt attended multiple groups yesterday afternoon. Pt reports she continues to feel depressed but feels like it's getting better ; pt was unable to provide details as to how she feels her mood is improving. Pt stated decreased auditory hallucinations. pt denies SI/HI/VH. She reports she will continue to try to go to more groups . continue current tx plan. 11/25: Pt reports feeling good today; pt stated, I'm anxious but not depressed today. I don't know why . Pt continues to report auditory hallucinations but states they are decreasing. Pt denies SI/HI/VH. Pt to receive Haldol Decanoate IM today; pt aware. Patient educated on: diagnosis, medication risk/benefits and therapeutic strategies Informed Consent: understands Reason for continued inpatient stay Substantial Risk for: med/psych decompensation Time Spent With Patient Time: Total time managing care of this patient today _20___ minutes.
[2023-11-26] MEDS: Magnesium Oxide 400 MG TABLET PO (09:22)
[2023-11-26] MEDS: Multivitamin TABLET 1 TAB PO (09:22)
[2023-11-26] MEDS: Thyroid,Pork 30 MG TABLET 60 MG PO (09:22)
[2023-11-26] MEDS: Omeprazole 20 MG CAPSULE.DR PO (09:22)
[2023-11-26] MEDS: Loratadine 10 MG TABLET PO (09:23)
[2023-11-26] MEDS: Benztropine Mesylate 1 MG TABLET PO ×2 (09:23→21:28)
[2023-11-26] MEDS: Folic Acid 1 MG TABLET PO (09:23)
[2023-11-26] MEDS: Docusate Sodium 100 MG CAPSULE PO ×2 (09:23→21:28)
[2023-11-26 09:27] VITALS: BP 96/56
[2023-11-26 14:43] VITALS: BP 108/63; PULSE 84
[2023-11-26] MEDS: Propranolol HCL 10 MG TABLET PO ×2 (14:43→21:27)
[2023-11-26] MEDS: cloZAPine 100 MG TABLET 150 MG PO (14:43)
[2023-11-26] MEDS: Haloperidol Decanoate 50 MG/ML VIAL 100 MG IM (14:44)
[2023-11-26] MEDS: clonazePAM 1 MG TABLET PO (17:36)
[2023-11-26 20:00] VITALS: BP 117/71; PULSE 106; RESP 16; TEMP 36.4; O2SAT 98
[2023-11-26 21:27] VITALS: BP 117/71; PULSE 109
[2023-11-27 08:00] VITALS: BP 109/58; PULSE 72
[2023-11-27] MEDS: Omeprazole 20 MG CAPSULE.DR PO (09:29)
[2023-11-27] MEDS: Folic Acid 1 MG TABLET PO (09:29)
[2023-11-27] MEDS: Docusate Sodium 100 MG CAPSULE PO ×2 (09:29→20:29)
[2023-11-27] MEDS: Loratadine 10 MG TABLET PO (09:29)
[2023-11-27 09:30] VITALS: BP 109/58; PULSE 72
[2023-11-27] MEDS: Propranolol HCL 10 MG TABLET PO ×3 (09:30→20:26)
[2023-11-27] MEDS: Magnesium Oxide 400 MG TABLET PO (09:30)
[2023-11-27] MEDS: Benztropine Mesylate 1 MG TABLET PO ×2 (09:30→20:29)
[2023-11-27] MEDS: Multivitamin TABLET 1 TAB PO (09:31)
[2023-11-27] MEDS: Thyroid,Pork 30 MG TABLET 60 MG PO (09:31)
--- NOTE | 2023-11-27 13:21 | P.PNPSI_ITS ---
Subjective Subjective Date of Service: 11/27/23 Reason For Visit: Unspecified anxiety disorder Subjective Notes: [place] Order ([facility] order) and Conditional Voluntary Interim History: The nursing staff reported the patient had been compliant with treatment she spent most of the time in her bed. Yesterday she got her Haldol Decanoate. She showered. The staff has noticed that she still having auditory hallucinations. On interview the patient denies new symptoms she feels okay but she looks internally preoccupied and psychotic she was posturing at times. No side effects with current medication. Mental Status Exam Mental Status Exam Patient Appearance: Appropriate Patient Orientation: Person and Situation Level of Consciousness: Alert Patient Behavior: Posturing and Passive Mood Description: Withdrawn Affect Description: Blunted Patient Cognition Impaired: Yes Ability to Follow Directions: Fair Speech Pattern: Clear Hallucinations: Auditory Delusions: Ideas of Reference Thought Process: Distracted and Evasive Thought Content: positive for [place], positive for [place] and positive for Thought Blocking Judgement: Poor Diagnostics Vital Signs (24Hr): Vital Signs - 24 hr 11/26/23 14:43 11/26/23 20:00 11/26/23 21:27 Temperature 97.6 F Pulse Rate 84 106 H 109 H Respiratory Rate 16 Blood Pressure 108/63 117/71 117/71 Pulse Oximetry 98 Oxygen Delivery Method Room Air 11/27/23 08:00 11/27/23 09:30 Temperature Pulse Rate 72 72 Respiratory Rate Blood Pressure 109/58 L 109/58 L Pulse Oximetry Oxygen Delivery Method BMI result Body Mass Index 32.0 Labs 11/23/23 18:29 11/23/23 18:29 Medications Medications Current Medications Acetaminophen (Acetaminophen 325 Mg Tablet) 650 mg PO Q6H PRN PRN Reason: Headache/Pain Mild Scale (1-3) Last Admin: 11/26/23 00:45 Dose: 650 mg Al Hydroxide/Mg Hydroxide (Magnesium Hydrox/Alum Hydrox 30 Ml Oral.Susp) 30 ml PO Q6H PRN PRN Reason: Heartburn/Nausea Last Admin: 11/07/23 19:05 Dose: 30 ml Benztropine Mesylate (Benztropine Mesylate 1 Mg Tablet) 1 mg PO BID [facility] Last Admin: 11/27/23 09:30 Dose: 1 mg Clonazepam (Clonazepam 1 Mg Tablet) 1 mg PO DAILY@1700 [facility] Last Admin: 11/26/23 17:36 Dose: 1 mg Clozapine 200 mg/ Clozapine 75 (mg) 275 mg PO BEDTIME [facility] Last Admin: 11/26/23 21:25 Dose: 275 mg Clozapine (Clozapine 100 Mg Tablet) 150 mg PO DAILY@1400 [facility] Last Admin: 11/26/23 14:43 Dose: 150 mg Docusate Sodium (Docusate Sodium 100 Mg Capsule) 100 mg PO BID [facility] Last Admin: 11/27/23 09:29 Dose: 100 mg Folic Acid (Folic Acid 1 Mg Tablet) 1 mg PO DAILY [facility] Last Admin: 11/27/23 09:29 Dose: 1 mg Haloperidol Decanoate (Haloperidol Decanoate 50 Mg/Ml Vial) 100 mg IM Q14D [facility] Last Admin: 11/26/23 14:44 Dose: 100 mg Haloperidol Lactate (Haloperidol Lactate Oral Conc 10 Mg/5 Ml Oral.Conc) 10 mg PO BID PRN PRN Reason: Agitation Last Admin: 11/25/23 21:30 Dose: 10 mg Hydroxyzine HCl (Hydroxyzine Hcl 25 Mg Tablet) 25 mg PO Q6H PRN PRN Reason: Anxiety Last Admin: 11/25/23 22:45 Dose: 25 mg Loratadine (Loratadine 10 Mg Tablet) 10 mg PO DAILY [facility] Last Admin: 11/27/23 09:29 Dose: 10 mg Magnesium Hydroxide (Milk Of Magnesia 30 Ml Oral.Susp) 30 ml PO DAILY PRN PRN Reason: Constipation Magnesium Oxide (Magnesium Oxide 400 Mg Tablet) 400 mg PO DAILY [facility] Last Admin: 11/27/23 09:30 Dose: 400 mg Multivitamins/Vitamin C (Multivitamin Tablet) 1 tab PO DAILY [facility] Last Admin: 11/27/23 09:31 Dose: 1 tab Pt Own (Dimethyl Fumarate 240 Mg ( Tecfidera) Capsule, Delayed Release(Dr/Ec)) 240 mg PO BID [facility] Last Admin: 11/27/23 09:28 Dose: 240 mg Omeprazole (Omeprazole 20 Mg Capsule.Dr) 20 mg PO DAILY [facility] Last Admin: 11/27/23 09:29 Dose: 20 mg Propranolol HCl (Propranolol Hcl 10 Mg Tablet) 10 mg PO TID [facility]; Protocol Last Admin: 11/27/23 09:30 Dose: 10 mg Thyroid (Thyroid,Pork 30 Mg Tablet) 60 mg PO DAILY [facility] Last Admin: 11/27/23 09:31 Dose: 60 mg Vitamin A/Vitamin D (A And D Ointment 56.7 Gm Tube) 1 appl TOPICAL BID PRN; Protocol PRN Reason: Dry Skin Last Admin: 11/25/23 19:30 Dose: 1 appl Allergies Allergies Allergy/AdvReac Type Severity Reaction Status Date / Time Pork/Porcine Containing Allergy Unknown RASH Verified 11/07/23 13:03 Products [PORK/PORCINE CONTAINING PRODUCTS] citalopram Allergy Unknown Verified 10/17/23 02:24 trazodone Allergy Unknown Verified 10/17/23 02:24 ALPHA LIPOIC ACID Allergy Unknown Uncoded 10/17/23 02:24 PIN TICKET MACHINE OPERATOR-3 THYROID TOXICITY Allergy Unknown Uncoded 10/17/23 02:24 Assessment & Plan Assessment & Plan (1) Schizoaffective disorder: Status: Acute Code(s): F25.9 - Schizoaffective disorder, unspecified Plan Presents with command hallucinations, paranoia, assisted setting and adherent with medications. Unclear if there are any additional stressors. Need to clarify [facility] order details i.e. medications available and dose ranges. With that in mind will not make any medication changes. 11/07: Pt reports hearing more voices prior to coming to the hospital. She reports voices are telling her that someone is going to kill her. She denies SI/HI. She reports feeling anxious because of voices but also reports medication changes helped and feels better than when she came here. We discussed constipation- which she denies given combination of high dose cogentin with clozapine. She reports sleeping well. 11/08: Pt presents guarded; she reports feeling depressed . Pt reports auditory hallucinations at this time; pt stated, I'm still having suicidal thoughts. The voices tell me they want to kill me . Pt reports she does not want to harm herself. pt denies HI/VH. Waiting for [place] documents. 11/09: Pt stated I feel better than when I came in here. The voices are quieter . Pt presents with slight persistent tremor in both hands; pt reports I usually shake but cogentin and magnesium help ;discussed propanolol;risks/benefits reviewed. Pt started on propanolol 10mg PO TID. Pt denies SI/HI/VH. 11/10: Keeping to self. Guarded. Pt reports feeling anxious and depressed today; pt stated, the voices are telling me again that they can kill me. It was better yesterday . Pt denies SI/HI/VH. [place] order documents were received. Last Invega Sustenna injection was on 11/05/23. Last Haldol decanoate injection was 10/29/23. Message out to patient's outpatient psychiatrist; waiting for call back. 11/11: Keeping to self. Guarded. Pt reports feeling depressed today; pt stated, I don't know why I feel this way . Pt denies SI/HI/VH/AH at this time. Patient to receive Haldol decanoate 100mg IM today; last IM was 10/29/23 per [facility]. Message out to patient's outpatient psychiatrist; waiting for call back. 11/13/2023: Continue current regimen and plans 11/14/2023: Continue current regimen and plans 11/14: keeping to self. guarded. pt reports feeling anxious and depressed today; pt stated, I don't know why I feel this way. The haldol helps with my anxiety and voices . Pt reports decreased auditory hallucinations; continues to hear them tell her they will kill her. pt denies HI/VH. Pt reports suicidal ideation to over dose on medication; pt stated, I don't know why I'm suicidal . 11/15: Patient reports feeling depressed today; she continues to report auditory hallucinations. Pt stated, the voices are telling me to kill myself by taking pills or throwing myself out of a window but I don't want to kill myself . Pt denies HI/VH. T/W spoke to patient's sister, Griselda, who reported patient's medication were messed up when she went to [facility] in August but she was fine before going to [facility] . Griselda to send home medication list 11/16: Patient reports feeling better than yesterday ; pt was not able to elaborate as to why she is feeling better. Pt stated, I'm still a little depressed ; pt denies SI/HI/VH/AH at this time. Continues to keep to self in room. encouraged to attend groups. 11/17: Staff reported pt was observed laying on bedroom floor. Pt reports feeling depressed today; pt stated, my voices told me to sleep on the floor and if not my heart would stop. I don't want to . Pt reports she feels she is getting better everyday . pt denies SI/HI/VH. Increase clozaril to 150mg PO daily. 11/18: continue current tx plan. 11/19 continue tx. decrease cogentin to 1mg po BID 11/20 continue tx. 11/21: Keeping to self. Pt continues to report feeling depressed today; pt stated, the voices have decreased but they are telling me they want to stop my heart . Pt reports she would like to go home soon. pt denies SI/HI/VH. continue current tx plan. 11/22:Pt continues to report feeling depressed today; pt stated, I feel like my depression is a little better because I have energy to do things . Pt continues to reports auditory hallucinations, pt stated, I'm worried the voices are going to kill me . pt denies SI/HI/VH. Pt reports she is going to try to not lay in bed all the time and go to some groups . Increase: Clozaril to 275mg PO bedtime 11/23: Pt reports feeling similar to yesterday ;continues to reports auditory hallucinations. Pt denies SI/HI/VH. Family meeting set up for 11/29/23 to discuss treatment. 11/24: Staff reported, pt attended multiple groups yesterday afternoon. Pt reports she continues to feel depressed but feels like it's getting better ; pt was unable to provide details as to how she feels her mood is improving. Pt stated decreased auditory hallucinations. pt denies SI/HI/VH. She reports she will continue to try to go to more groups . continue current tx plan. 11/25: Pt reports feeling good today; pt stated, I'm anxious but not depressed today. I don't know why . Pt continues to report auditory hallucinations but states they are decreasing. Pt denies SI/HI/VH. Pt to receive Haldol Decanoate IM today; pt aware. Five/for still with auditory hallucinations no changes in his medications. Reason for continued inpatient stay Substantial Risk for: inability to function, rapid decompensation and med/psych decompensation Time Spent With Patient Time: Total time managing care of this patient today __20__ minutes.
[2023-11-27 15:37] VITALS: BP 133/88; PULSE 106
[2023-11-27] MEDS: cloZAPine 100 MG TABLET 150 MG PO (15:38)
[2023-11-27] MEDS: clonazePAM 1 MG TABLET PO (17:04)
[2023-11-27 20:00] VITALS: BP 108/60; PULSE 92; RESP 16; TEMP 36.8; O2SAT 98
[2023-11-27 20:26] VITALS: BP 107/60; PULSE 67
[2023-11-27] MEDS: hydrOXYzine HCL 25 MG TABLET PO (20:40)
[2023-11-27] MEDS: Haloperidol Lactate Oral Conc 10 MG/5 ML ORAL.CONC PO (23:43)
[2023-11-28 08:00] VITALS: BP 86/52; PULSE 85; RESP 16; TEMP 36.4; O2SAT 98
[2023-11-28 08:17] LABS: Neut%MD 46.1 %; Neutrophils Absolute Auto 2.8 x10*3/uL (2.0-8.3)
[2023-11-28 09:09] VITALS: BP 86/52; PULSE 85
[2023-11-28] MEDS: Multivitamin TABLET 1 TAB PO (09:09)
[2023-11-28] MEDS: Folic Acid 1 MG TABLET PO (09:09)
[2023-11-28] MEDS: Omeprazole 20 MG CAPSULE.DR PO (09:09)
[2023-11-28] MEDS: Loratadine 10 MG TABLET PO (09:09)
[2023-11-28] MEDS: Thyroid,Pork 30 MG TABLET 60 MG PO (09:09)
[2023-11-28] MEDS: Magnesium Oxide 400 MG TABLET PO (09:09)
[2023-11-28] MEDS: Docusate Sodium 100 MG CAPSULE PO ×2 (09:09→22:35)
[2023-11-28] MEDS: Benztropine Mesylate 1 MG TABLET PO ×2 (09:09→22:35)
[2023-11-28] MEDS: Acetaminophen 325 MG TABLET 650 MG PO (10:13)
--- NOTE | 2023-11-28 12:37 | HO.PSYCHPN ---
Subjective Subjective Date of Service: 11/28/23 Reason For Visit: Unspecified anxiety disorder Subjective Notes: Conditional Voluntary Interim History: The nursing staff reported the patient complained of some sporadic auditory hallucinations last night. She was very fearful in the morning. Her blood pressure was low on propranolol was hold today a.m.. The patient reported some dizziness. On interview the patient denies new symptoms looks internally preoccupied, chronically psychotic. Mental Status Exam Mental Status Exam Patient Appearance: Appropriate Patient Orientation: Person and Situation Level of Consciousness: Awake Patient Behavior: Guarded and Passive Mood Description: Withdrawn Affect Description: Constricted Patient Cognition Impaired: Yes Ability to Follow Directions: Fair Speech Pattern: Clear Hallucinations: None Delusions: Paranoid Ideation and Ideas of Reference Thought Process: Distracted and Slowed Thinking Thought Content: positive for [place] and positive for [place] of Content Judgement: Fair Diagnostics Vital Signs (24Hr): Vital Signs - 24 hr 11/27/23 15:37 11/27/23 20:00 11/27/23 20:26 Temperature 98.3 F Pulse Rate 106 H 92 67 Respiratory Rate 16 Blood Pressure 133/88 108/60 107/60 Pulse Oximetry 98 Oxygen Delivery Method Room Air 11/28/23 08:00 11/28/23 09:09 Temperature 97.6 F Pulse Rate 85 85 Respiratory Rate 16 Blood Pressure 86/52 L 86/52 L Pulse Oximetry 98 Oxygen Delivery Method Room Air BMI result Body Mass Index 32.0 Labs 11/23/23 18:29 11/23/23 18:29 Labs: Laboratory Results - last 48 hr 11/28/23 08:00 Absolute Neuts (auto) 2.8 Medications Medications Current Medications Acetaminophen (Acetaminophen 325 Mg Tablet) 650 mg PO Q6H PRN PRN Reason: Headache/Pain Mild Scale (1-3) Last Admin: 11/28/23 10:13 Dose: 650 mg Al Hydroxide/Mg Hydroxide (Magnesium Hydrox/Alum Hydrox 30 Ml Oral.Susp) 30 ml PO Q6H PRN PRN Reason: Heartburn/Nausea Last Admin: 11/07/23 19:05 Dose: 30 ml Benztropine Mesylate (Benztropine Mesylate 1 Mg Tablet) 1 mg PO BID [facility] Last Admin: 11/28/23 09:09 Dose: 1 mg Clonazepam (Clonazepam 1 Mg Tablet) 1 mg PO DAILY@1700 [facility] Last Admin: 11/27/23 17:04 Dose: 1 mg Clozapine 200 mg/ Clozapine 75 (mg) 275 mg PO BEDTIME [facility] Last Admin: 11/27/23 20:28 Dose: 275 mg Clozapine (Clozapine 100 Mg Tablet) 150 mg PO DAILY@1400 [facility] Last Admin: 11/27/23 15:38 Dose: 150 mg Docusate Sodium (Docusate Sodium 100 Mg Capsule) 100 mg PO BID [facility] Last Admin: 11/28/23 09:09 Dose: 100 mg Folic Acid (Folic Acid 1 Mg Tablet) 1 mg PO DAILY [facility] Last Admin: 11/28/23 09:09 Dose: 1 mg Haloperidol Decanoate (Haloperidol Decanoate 50 Mg/Ml Vial) 100 mg IM Q14D [facility] Last Admin: 11/26/23 14:44 Dose: 100 mg Haloperidol Lactate (Haloperidol Lactate Oral Conc 10 Mg/5 Ml Oral.Conc) 10 mg PO BID PRN PRN Reason: Agitation Last Admin: 11/27/23 23:43 Dose: 10 mg Hydroxyzine HCl (Hydroxyzine Hcl 25 Mg Tablet) 25 mg PO Q6H PRN PRN Reason: Anxiety Last Admin: 11/27/23 20:40 Dose: 25 mg Loratadine (Loratadine 10 Mg Tablet) 10 mg PO DAILY [facility] Last Admin: 11/28/23 09:09 Dose: 10 mg Magnesium Hydroxide (Milk Of Magnesia 30 Ml Oral.Susp) 30 ml PO DAILY PRN PRN Reason: Constipation Magnesium Oxide (Magnesium Oxide 400 Mg Tablet) 400 mg PO DAILY [facility] Last Admin: 11/28/23 09:09 Dose: 400 mg Multivitamins/Vitamin C (Multivitamin Tablet) 1 tab PO DAILY [facility] Last Admin: 11/28/23 09:09 Dose: 1 tab Pt Own (Dimethyl Fumarate 240 Mg ( Tecfidera) Capsule, Delayed Release(Dr/Ec)) 240 mg PO BID [facility] Last Admin: 11/28/23 09:09 Dose: 240 mg Omeprazole (Omeprazole 20 Mg Capsule.Dr) 20 mg PO DAILY [facility] Last Admin: 11/28/23 09:09 Dose: 20 mg Propranolol HCl (Propranolol Hcl 10 Mg Tablet) 10 mg PO TID [facility]; Protocol Last Admin: 11/28/23 09:09 Dose: Not Given Thyroid (Thyroid,Pork 30 Mg Tablet) 60 mg PO DAILY [facility] Last Admin: 11/28/23 09:09 Dose: 60 mg Vitamin A/Vitamin D (A And D Ointment 56.7 Gm Tube) 1 appl TOPICAL BID PRN; Protocol PRN Reason: Dry Skin Last Admin: 11/25/23 19:30 Dose: 1 appl Allergies Allergies Allergy/AdvReac Type Severity Reaction Status Date / Time Pork/Porcine Containing Allergy Unknown RASH Verified 11/07/23 13:03 Products [PORK/PORCINE CONTAINING PRODUCTS] citalopram Allergy Unknown Verified 10/17/23 02:24 trazodone Allergy Unknown Verified 10/17/23 02:24 ALPHA LIPOIC ACID Allergy Unknown Uncoded 10/17/23 02:24 VICE PRESIDENT OF CONTRACTS-3 THYROID TOXICITY Allergy Unknown Uncoded 10/17/23 02:24 Assessment & Plan Assessment & Plan (1) Schizoaffective disorder: Status: Acute Code(s): F25.9 - Schizoaffective disorder, unspecified Plan Presents with command hallucinations, paranoia, shelter setting and adherent with medications. Unclear if there are any additional stressors. Need to clarify [facility] order details i.e. medications available and dose ranges. With that in mind will not make any medication changes. 11/07: Pt reports hearing more voices prior to coming to the hospital. She reports voices are telling her that someone is going to kill her. She denies SI/HI. She reports feeling anxious because of voices but also reports medication changes helped and feels better than when she came here. We discussed constipation- which she denies given combination of high dose cogentin with clozapine. She reports sleeping well. 11/08: Pt presents guarded; she reports feeling depressed . Pt reports auditory hallucinations at this time; pt stated, I'm still having suicidal thoughts. The voices tell me they want to kill me . Pt reports she does not want to harm herself. pt denies HI/VH. Waiting for [facility]ell documents. 11/09: Pt stated I feel better than when I came in here. The voices are quieter . Pt presents with slight persistent tremor in both hands; pt reports I usually shake but cogentin and magnesium help ;discussed propanolol;risks/benefits reviewed. Pt started on propanolol 10mg PO TID. Pt denies SI/HI/VH. 11/10: Keeping to self. Guarded. Pt reports feeling anxious and depressed today; pt stated, the voices are telling me again that they can kill me. It was better yesterday . Pt denies SI/HI/VH. [facility]ell order documents were received. Last Invega Sustenna injection was on 11/05/23. Last Haldol decanoate injection was 10/29/23. Message out to patient's outpatient psychiatrist; waiting for call back. 11/11: Keeping to self. Guarded. Pt reports feeling depressed today; pt stated, I don't know why I feel this way . Pt denies SI/HI/VH/AH at this time. Patient to receive Haldol decanoate 100mg IM today; last IM was 10/29/23 per [facility]. Message out to patient's outpatient psychiatrist; waiting for call back. 11/13/2023: Continue current regimen and plans 11/14/2023: Continue current regimen and plans 11/14: keeping to self. guarded. pt reports feeling anxious and depressed today; pt stated, I don't know why I feel this way. The haldol helps with my anxiety and voices . Pt reports decreased auditory hallucinations; continues to hear them tell her they will kill her. pt denies HI/VH. Pt reports suicidal ideation to over dose on medication; pt stated, I don't know why I'm suicidal . 11/15: Patient reports feeling depressed today; she continues to report auditory hallucinations. Pt stated, the voices are telling me to kill myself by taking pills or throwing myself out of a window but I don't want to kill myself . Pt denies HI/VH. T/W spoke to patient's sister, Griselda, who reported patient's medication were messed up when she went to [facility] in August but she was fine before going to [facility] . Griselda to send home medication list 11/16: Patient reports feeling better than yesterday ; pt was not able to elaborate as to why she is feeling better. Pt stated, I'm still a little depressed ; pt denies SI/HI/VH/AH at this time. Continues to keep to self in room. encouraged to attend groups. 11/17: Staff reported pt was observed laying on bedroom floor. Pt reports feeling depressed today; pt stated, my voices told me to sleep on the floor and if not my heart would stop. I don't want to . Pt reports she feels she is getting better everyday . pt denies SI/HI/VH. Increase clozaril to 150mg PO daily. 11/18: continue current tx plan. 11/19 continue tx. decrease cogentin to 1mg po BID 11/20 continue tx. 11/21: Keeping to self. Pt continues to report feeling depressed today; pt stated, the voices have decreased but they are telling me they want to stop my heart . Pt reports she would like to go home soon. pt denies SI/HI/VH. continue current tx plan. 11/22:Pt continues to report feeling depressed today; pt stated, I feel like my depression is a little better because I have energy to do things . Pt continues to reports auditory hallucinations, pt stated, I'm worried the voices are going to kill me . pt denies SI/HI/VH. Pt reports she is going to try to not lay in bed all the time and go to some groups . Increase: Clozaril to 275mg PO bedtime 11/23: Pt reports feeling similar to yesterday ;continues to reports auditory hallucinations. Pt denies SI/HI/VH. Family meeting set up for 11/29/23 to discuss treatment. 11/24: Staff reported, pt attended multiple groups yesterday afternoon. Pt reports she continues to feel depressed but feels like it's getting better ; pt was unable to provide details as to how she feels her mood is improving. Pt stated decreased auditory hallucinations. pt denies SI/HI/VH. She reports she will continue to try to go to more groups . continue current tx plan. 11/25: Pt reports feeling good today; pt stated, I'm anxious but not depressed today. I don't know why . Pt continues to report auditory hallucinations but states they are decreasing. Pt denies SI/HI/VH. Pt to receive Haldol Decanoate IM today; pt aware. Five/for still with auditory hallucinations no changes in his medications.. 5/5 continue same treatment Reason for continued inpatient stay Substantial Risk for: inability to function, rapid decompensation and med/psych decompensation Time Spent With Patient Time: Total time managing care of this patient today __20__ minutes.
[2023-11-28 14:43] VITALS: BP 102/59; PULSE 103
[2023-11-28] MEDS: Propranolol HCL 10 MG TABLET PO (14:43)
[2023-11-28] MEDS: cloZAPine 100 MG TABLET 150 MG PO (14:46)
[2023-11-28] MEDS: clonazePAM 1 MG TABLET PO (17:38)
[2023-11-28 19:54] VITALS: BP 93/50; PULSE 89; RESP 16; TEMP 36.4; O2SAT 97
[2023-11-28 22:28] VITALS: BP 91/53; PULSE 92
[2023-11-28] MEDS: hydrOXYzine HCL 25 MG TABLET PO (22:56)
[2023-11-29 09:02] LABS: Neut%MD 51.7 %; Neutrophils Absolute Auto 3.1 x10*3/uL (2.0-8.3); WBCANC 5.9 X10*3/uL
[2023-11-29 09:30] VITALS: BP 115/69; PULSE 89; RESP 16; TEMP 36.3; O2SAT 97
[2023-11-29] MEDS: Folic Acid 1 MG TABLET PO (09:31)
[2023-11-29] MEDS: Thyroid,Pork 30 MG TABLET 60 MG PO (09:31)
[2023-11-29 09:32] VITALS: BP 115/69; PULSE 89
[2023-11-29] MEDS: Benztropine Mesylate 1 MG TABLET PO ×2 (09:32→20:53)
[2023-11-29] MEDS: Magnesium Oxide 400 MG TABLET PO (09:32)
[2023-11-29] MEDS: Omeprazole 20 MG CAPSULE.DR PO (09:32)
[2023-11-29] MEDS: Docusate Sodium 100 MG CAPSULE PO ×2 (09:32→20:53)
[2023-11-29] MEDS: Propranolol HCL 10 MG TABLET PO ×3 (09:32→20:53)
[2023-11-29] MEDS: Multivitamin TABLET 1 TAB PO (09:32)
[2023-11-29] MEDS: Loratadine 10 MG TABLET PO (09:33)
--- NOTE | 2023-11-29 09:53 | P.PNPSI_ITS ---
Subjective Subjective Date of Service: 11/29/23 Reason For Visit: Unspecified anxiety disorder Subjective Notes: Conditional Voluntary Interim History: Family meeting today with pt, patient's sister, Dr. Louis and certified social workers in health care, Fili, present. Reviewed risks/benefits of ECT. discussed treatment plan. Patient and sister to consider ECT treatment. Will discuss case with neurology. Pt continues to report feeling anxious and auditory hallucinations. Encouraged to attend groups and not lay in bed. keeping to self. Pt denies SI/HI/VH. Pt is hoping to return to alf soon. Medication Compliance: Yes Side effects from medications: No Attending Groups: No Review of Systems Constitutional: Reports as per HPI Eyes: Reports as per HPI Reports as per HPI Cardiovascular: Reports as per HPI Respiratory: Reports as per HPI Gastrointestinal: Reports as per HPI Genitourinary: Reports as per HPI Musculoskeletal: Reports as per HPI Skin/Breast: Reports as per HPI Reports as per HPI Psychiatric: Reports as per HPI Endocrine: Reports as per HPI Hematologic/Lymphatic: Reports as per HPI Allergic/Immunologic: Reports as per HPI Mental Status Exam Mental Status Exam Narrative: Pt is alert and oriented; behavior is cooperative and calm. guarded; dressed in casual attire; mood is described as anxious ; eye contact appropriate; Speech is normal rate, volume and prosody and not pressured; thought process is organized; Thought content is on tx; denies SI/HI/VH. pt reports auditory hallucinations. Diagnostics Vital Signs (24Hr): Vital Signs - 24 hr 11/28/23 14:43 11/28/23 19:54 11/28/23 22:28 Temperature 97.6 F Pulse Rate 103 H 89 92 Respiratory Rate 16 Blood Pressure 102/59 L 93/50 L 91/53 L Pulse Oximetry 97 Oxygen Delivery Method Room Air 11/29/23 09:30 11/29/23 09:32 Temperature 97.4 F Pulse Rate 89 89 Respiratory Rate 16 Blood Pressure 115/69 115/69 Pulse Oximetry 97 Oxygen Delivery Method Room Air BMI result Body Mass Index 32.0 Labs 11/23/23 18:29 11/23/23 18:29 Labs: Laboratory Results - last 48 hr 11/28/23 11/29/23 08:00 08:43 Absolute Neuts (auto) 2.8 3.1 Medications Medications Current Medications Acetaminophen (Acetaminophen 325 Mg Tablet) 650 mg PO Q6H PRN PRN Reason: Headache/Pain Mild Scale (1-3) Last Admin: 11/28/23 10:13 Dose: 650 mg Al Hydroxide/Mg Hydroxide (Magnesium Hydrox/Alum Hydrox 30 Ml Oral.Susp) 30 ml PO Q6H PRN PRN Reason: Heartburn/Nausea Last Admin: 11/07/23 19:05 Dose: 30 ml Benztropine Mesylate (Benztropine Mesylate 1 Mg Tablet) 1 mg PO BID [facility] Last Admin: 11/29/23 09:32 Dose: 1 mg Clonazepam (Clonazepam 1 Mg Tablet) 1 mg PO DAILY@1700 [facility] Last Admin: 11/28/23 17:38 Dose: 1 mg Clozapine 200 mg/ Clozapine 75 (mg) 275 mg PO BEDTIME [facility] Last Admin: 11/28/23 22:34 Dose: 275 mg Clozapine (Clozapine 100 Mg Tablet) 150 mg PO DAILY@1400 [facility] Last Admin: 11/28/23 14:46 Dose: 150 mg Docusate Sodium (Docusate Sodium 100 Mg Capsule) 100 mg PO BID [facility] Last Admin: 11/29/23 09:32 Dose: 100 mg Folic Acid (Folic Acid 1 Mg Tablet) 1 mg PO DAILY [facility] Last Admin: 11/29/23 09:31 Dose: 1 mg Haloperidol Decanoate (Haloperidol Decanoate 50 Mg/Ml Vial) 100 mg IM Q14D [facility] Last Admin: 11/26/23 14:44 Dose: 100 mg Haloperidol Lactate (Haloperidol Lactate Oral Conc 10 Mg/5 Ml Oral.Conc) 10 mg PO BID PRN PRN Reason: Agitation Last Admin: 11/27/23 23:43 Dose: 10 mg Hydroxyzine HCl (Hydroxyzine Hcl 25 Mg Tablet) 25 mg PO Q6H PRN PRN Reason: Anxiety Last Admin: 11/28/23 22:56 Dose: 25 mg Loratadine (Loratadine 10 Mg Tablet) 10 mg PO DAILY [facility] Last Admin: 11/29/23 09:33 Dose: 10 mg Magnesium Hydroxide (Milk Of Magnesia 30 Ml Oral.Susp) 30 ml PO DAILY PRN PRN Reason: Constipation Magnesium Oxide (Magnesium Oxide 400 Mg Tablet) 400 mg PO DAILY [facility] Last Admin: 11/29/23 09:32 Dose: 400 mg Multivitamins/Vitamin C (Multivitamin Tablet) 1 tab PO DAILY [facility] Last Admin: 11/29/23 09:32 Dose: 1 tab Pt Own (Dimethyl Fumarate 240 Mg ( Tecfidera) Capsule, Delayed Release(Dr/Ec)) 240 mg PO BID [facility] Last Admin: 11/29/23 09:33 Dose: 240 mg Omeprazole (Omeprazole 20 Mg Capsule.Dr) 20 mg PO DAILY [facility] Last Admin: 11/29/23 09:32 Dose: 20 mg Propranolol HCl (Propranolol Hcl 10 Mg Tablet) 10 mg PO TID [facility]; Protocol Last Admin: 11/29/23 09:32 Dose: 10 mg Thyroid (Thyroid,Pork 30 Mg Tablet) 60 mg PO DAILY [facility] Last Admin: 11/29/23 09:31 Dose: 60 mg Vitamin A/Vitamin D (A And D Ointment 56.7 Gm Tube) 1 appl TOPICAL BID PRN; Protocol PRN Reason: Dry Skin Last Admin: 11/25/23 19:30 Dose: 1 appl Allergies Allergies Allergy/AdvReac Type Severity Reaction Status Date / Time Pork/Porcine Containing Allergy Unknown RASH Verified 11/07/23 13:03 Products [PORK/PORCINE CONTAINING PRODUCTS] citalopram Allergy Unknown Verified 10/17/23 02:24 trazodone Allergy Unknown Verified 10/17/23 02:24 ALPHA LIPOIC ACID Allergy Unknown Uncoded 10/17/23 02:24 ICE RINK ATTENDANT-3 THYROID TOXICITY Allergy Unknown Uncoded 10/17/23 02:24 Assessment & Plan Assessment & Plan (1) Schizoaffective disorder: Status: Acute Code(s): F25.9 - Schizoaffective disorder, unspecified Plan Presents with command hallucinations, paranoia, alf setting and adherent with medications. Unclear if there are any additional stressors. Need to clarify [facility] order details i.e. medications available and dose ranges. With that in mind will not make any medication changes. 11/07: Pt reports hearing more voices prior to coming to the hospital. She reports voices are telling her that someone is going to kill her. She denies SI/HI. She reports feeling anxious because of voices but also reports medication changes helped and feels better than when she came here. We discussed constipation- which she denies given combination of high dose cogentin with clozapine. She reports sleeping well. 11/08: Pt presents guarded; she reports feeling depressed . Pt reports auditory hallucinations at this time; pt stated, I'm still having suicidal thoughts. The voices tell me they want to kill me . Pt reports she does not want to harm herself. pt denies HI/VH. Waiting for [facility] documents. 11/09: Pt stated I feel better than when I came in here. The voices are quieter . Pt presents with slight persistent tremor in both hands; pt reports I usually shake but cogentin and magnesium help ;discussed propanolol;risks/benefits reviewed. Pt started on propanolol 10mg PO TID. Pt denies SI/HI/VH. 11/10: Keeping to self. Guarded. Pt reports feeling anxious and depressed today; pt stated, the voices are telling me again that they can kill me. It was better yesterday . Pt denies SI/HI/VH. [facility] order documents were received. Last Invega Sustenna injection was on 11/05/23. Last Haldol decanoate injection was 10/29/23. Message out to patient's outpatient psychiatrist; waiting for call back. 11/11: Keeping to self. Guarded. Pt reports feeling depressed today; pt stated, I don't know why I feel this way . Pt denies SI/HI/VH/AH at this time. Patient to receive Haldol decanoate 100mg IM today; last IM was 10/29/23 per [facility]. Message out to patient's outpatient psychiatrist; waiting for call back. 11/13/2023: Continue current regimen and plans 11/14/2023: Continue current regimen and plans 11/14: keeping to self. guarded. pt reports feeling anxious and depressed today; pt stated, I don't know why I feel this way. The haldol helps with my anxiety and voices . Pt reports decreased auditory hallucinations; continues to hear them tell her they will kill her. pt denies HI/VH. Pt reports suicidal ideation to over dose on medication; pt stated, I don't know why I'm suicidal . 11/15: Patient reports feeling depressed today; she continues to report auditory hallucinations. Pt stated, the voices are telling me to kill myself by taking pills or throwing myself out of a window but I don't want to kill myself . Pt denies HI/VH. T/W spoke to patient's sister, Griselda, who reported patient's medication were messed up when she went to [facility] in August but she was fine before going to [facility] . Griselda to send home medication list 11/16: Patient reports feeling better than yesterday ; pt was not able to elaborate as to why she is feeling better. Pt stated, I'm still a little depressed ; pt denies SI/HI/VH/AH at this time. Continues to keep to self in room. encouraged to attend groups. 11/17: Staff reported pt was observed laying on bedroom floor. Pt reports feeling depressed today; pt stated, my voices told me to sleep on the floor and if not my heart would stop. I don't want to . Pt reports she feels she is getting better everyday . pt denies SI/HI/VH. Increase clozaril to 150mg PO daily. 11/18: continue current tx plan. 11/19 continue tx. decrease cogentin to 1mg po BID 11/20 continue tx. 11/21: Keeping to self. Pt continues to report feeling depressed today; pt stated, the voices have decreased but they are telling me they want to stop my heart . Pt reports she would like to go home soon. pt denies SI/HI/VH. continue current tx plan. 11/22:Pt continues to report feeling depressed today; pt stated, I feel like my depression is a little better because I have energy to do things . Pt continues to reports auditory hallucinations, pt stated, I'm worried the voices are going to kill me . pt denies SI/HI/VH. Pt reports she is going to try to not lay in bed all the time and go to some groups . Increase: Clozaril to 275mg PO bedtime 11/23: Pt reports feeling similar to yesterday ;continues to reports auditory hallucinations. Pt denies SI/HI/VH. Family meeting set up for 11/29/23 to discuss treatment. 11/24: Staff reported, pt attended multiple groups yesterday afternoon. Pt reports she continues to feel depressed but feels like it's getting better ; pt was unable to provide details as to how she feels her mood is improving. Pt stated decreased auditory hallucinations. pt denies SI/HI/VH. She reports she will continue to try to go to more groups . continue current tx plan. 11/25: Pt reports feeling good today; pt stated, I'm anxious but not depressed today. I don't know why . Pt continues to report auditory hallucinations but states they are decreasing. Pt denies SI/HI/VH. Pt to receive Haldol Decanoate IM today; pt aware. Five/for still with auditory hallucinations no changes in his medications.. 11/27 continue same treatment 11/28: Family meeting today with pt, patient's sister, Dr. Louis and certified social workers in health care, Fili, present. Reviewed risks/benefits of ECT. discussed treatment plan. Patient and sister to consider ECT treatment. Will discuss case with neurology. Pt continues to report feeling anxious and auditory hallucinations. Encouraged to attend groups and not lay in bed. keeping to self. Pt denies SI/HI/VH. Pt is hoping to return to alf soon. continue current tx plan. Patient educated on: diagnosis, medication risk/benefits, ECT and therapeutic strategies Guardian/Caregiver educated on: diagnosis, medication risk/benefits and ECT Informed Consent: understands Reason for continued inpatient stay Substantial Risk for: med/psych decompensation Time Spent With Patient Time: Total time managing care of this patient today _30___ minutes.
[2023-11-29 14:45] VITALS: BP 110/61; PULSE 105
[2023-11-29] MEDS: cloZAPine 100 MG TABLET 150 MG PO (14:52)
[2023-11-29 14:53] VITALS: BP 110/61; PULSE 105
[2023-11-29] MEDS: clonazePAM 1 MG TABLET PO (16:22)
[2023-11-29] MEDS: Haloperidol Lactate Oral Conc 10 MG/5 ML ORAL.CONC PO (17:59)
[2023-11-30 07:37] VITALS: BP 118/70; PULSE 82; RESP 16; TEMP 35.5; O2SAT 97
[2023-11-30] MEDS: Multivitamin TABLET 1 TAB PO (09:38)
[2023-11-30] MEDS: Omeprazole 20 MG CAPSULE.DR PO (09:38)
[2023-11-30] MEDS: Benztropine Mesylate 1 MG TABLET PO ×2 (09:38→21:19)
[2023-11-30 09:39] VITALS: BP 118/70; PULSE 82
[2023-11-30] MEDS: Docusate Sodium 100 MG CAPSULE PO ×2 (09:39→21:18)
[2023-11-30] MEDS: Thyroid,Pork 30 MG TABLET 60 MG PO (09:39)
[2023-11-30] MEDS: Propranolol HCL 10 MG TABLET PO ×3 (09:39→21:18)
[2023-11-30] MEDS: Folic Acid 1 MG TABLET PO (09:40)
[2023-11-30] MEDS: Loratadine 10 MG TABLET PO (09:40)
[2023-11-30 14:19] VITALS: BP 102/60; PULSE 110
[2023-11-30 14:23] VITALS: BP 102/60; PULSE 110
[2023-11-30] MEDS: cloZAPine 100 MG TABLET 150 MG PO (14:23)
[2023-11-30] MEDS: clonazePAM 0.5 MG TABLET PO (17:00)
--- NOTE | 2023-11-30 17:42 | HO.PSYCHPN ---
Subjective Subjective Date of Service: 11/30/23 Reason For Visit: Unspecified anxiety disorder Subjective Notes: Conditional Voluntary Interim History: Patient feeling some improvement with increase Clozaril but is fearful regarding intrusive hallucinations that urged her to harm herself. She has been able to resist this. We also discussed use of modafinil currently now on formulary Mental Status Exam Mental Status Exam Narrative: Pt is alert and oriented x 3; behavior is cooperative and calm. guarded; dressed in casual attire; mood is described as good, affect somewhat sedated; eye contact appropriate; Speech is normal rate, volume and prosody and not pressured; thought process is organized; Thought content is on tx; denies SI/HI/VH. Pt reports decreased auditory hallucinations. Diagnostics Vital Signs (24Hr): Vital Signs - 24 hr 11/30/23 07:37 11/30/23 09:39 11/30/23 14:19 Temperature 95.9 F L Pulse Rate 82 82 110 H Respiratory Rate 16 Blood Pressure 118/70 118/70 102/60 Pulse Oximetry 97 Oxygen Delivery Method Room Air 11/30/23 14:23 Temperature Pulse Rate 110 H Respiratory Rate Blood Pressure 102/60 Pulse Oximetry Oxygen Delivery Method BMI result Body Mass Index 32.0 Labs 11/23/23 18:29 11/23/23 18:29 Labs: Laboratory Results - last 48 hr 11/29/23 08:43 Absolute Neuts (auto) 3.1 Medications Medications Current Medications Acetaminophen (Acetaminophen 325 Mg Tablet) 650 mg PO Q6H PRN PRN Reason: Headache/Pain Mild Scale (1-3) Last Admin: 11/28/23 10:13 Dose: 650 mg Al Hydroxide/Mg Hydroxide (Magnesium Hydrox/Alum Hydrox 30 Ml Oral.Susp) 30 ml PO Q6H PRN PRN Reason: Heartburn/Nausea Last Admin: 11/07/23 19:05 Dose: 30 ml Benztropine Mesylate (Benztropine Mesylate 1 Mg Tablet) 1 mg PO BID [facility] Last Admin: 11/30/23 09:38 Dose: 1 mg Clonazepam (Clonazepam 0.5 Mg Tablet) 0.5 mg PO DAILY@1700 [facility] Last Admin: 11/30/23 17:00 Dose: 0.5 mg Clozapine 200 mg/ Clozapine 75 (mg) 275 mg PO BEDTIME [facility] Last Admin: 11/29/23 20:53 Dose: 275 mg Clozapine (Clozapine 100 Mg Tablet) 150 mg PO DAILY@1400 [facility] Last Admin: 11/30/23 14:23 Dose: 150 mg Docusate Sodium (Docusate Sodium 100 Mg Capsule) 100 mg PO BID [facility] Last Admin: 11/30/23 09:39 Dose: 100 mg Folic Acid (Folic Acid 1 Mg Tablet) 1 mg PO DAILY [facility] Last Admin: 11/30/23 09:40 Dose: 1 mg Haloperidol Decanoate (Haloperidol Decanoate 50 Mg/Ml Vial) 100 mg IM Q14D [facility] Last Admin: 11/26/23 14:44 Dose: 100 mg Haloperidol Lactate (Haloperidol Lactate Oral Conc 10 Mg/5 Ml Oral.Conc) 10 mg PO BID PRN PRN Reason: Agitation Last Admin: 11/29/23 17:59 Dose: 10 mg Hydroxyzine HCl (Hydroxyzine Hcl 25 Mg Tablet) 25 mg PO Q6H PRN PRN Reason: Anxiety Last Admin: 11/28/23 22:56 Dose: 25 mg Loratadine (Loratadine 10 Mg Tablet) 10 mg PO DAILY [facility] Last Admin: 11/30/23 09:40 Dose: 10 mg Magnesium Hydroxide (Milk Of Magnesia 30 Ml Oral.Susp) 30 ml PO DAILY PRN PRN Reason: Constipation Magnesium Oxide (Magnesium Oxide 400 Mg Tablet) 400 mg PO BEDTIME [facility] Multivitamins/Vitamin C (Multivitamin Tablet) 1 tab PO DAILY [facility] Last Admin: 11/30/23 09:38 Dose: 1 tab Pt Own (Dimethyl Fumarate 240 Mg ( Tecfidera) Capsule, Delayed Release(Dr/Ec)) 240 mg PO BID [facility] Last Admin: 11/30/23 09:40 Dose: 240 mg Omeprazole (Omeprazole 20 Mg Capsule.Dr) 20 mg PO DAILY [facility] Last Admin: 11/30/23 09:38 Dose: 20 mg Propranolol HCl (Propranolol Hcl 10 Mg Tablet) 10 mg PO TID [facility]; Protocol Last Admin: 11/30/23 14:23 Dose: 10 mg Thyroid (Thyroid,Pork 30 Mg Tablet) 60 mg PO DAILY [facility] Last Admin: 11/30/23 09:39 Dose: 60 mg Vitamin A/Vitamin D (A And D Ointment 56.7 Gm Tube) 1 appl TOPICAL BID PRN; Protocol PRN Reason: Dry Skin Last Admin: 11/25/23 19:30 Dose: 1 appl Allergies Allergies Allergy/AdvReac Type Severity Reaction Status Date / Time Pork/Porcine Containing Allergy Unknown RASH Verified 11/07/23 13:03 Products [PORK/PORCINE CONTAINING PRODUCTS] citalopram Allergy Unknown Verified 10/17/23 02:24 trazodone Allergy Unknown Verified 10/17/23 02:24 ALPHA LIPOIC ACID Allergy Unknown Uncoded 10/17/23 02:24 ASSEMBLYMAN OR WOMAN-3 THYROID TOXICITY Allergy Unknown Uncoded 10/17/23 02:24 Assessment & Plan Assessment & Plan (1) Schizoaffective disorder: Status: Acute Code(s): F25.9 - Schizoaffective disorder, unspecified Plan Presents with command hallucinations, paranoia, [facility] setting and adherent with medications. Unclear if there are any additional stressors. Need to clarify [facility] order details i.e. medications available and dose ranges. With that in mind will not make any medication changes. 11/07: Pt reports hearing more voices prior to coming to the hospital. She reports voices are telling her that someone is going to kill her. She denies SI/HI. She reports feeling anxious because of voices but also reports medication changes helped and feels better than when she came here. We discussed constipation- which she denies given combination of high dose cogentin with clozapine. She reports sleeping well. 11/08: Pt presents guarded; she reports feeling depressed . Pt reports auditory hallucinations at this time; pt stated, I'm still having suicidal thoughts. The voices tell me they want to kill me . Pt reports she does not want to harm herself. pt denies HI/VH. Waiting for [facility] documents. 11/09: Pt stated I feel better than when I came in here. The voices are quieter . Pt presents with slight persistent tremor in both hands; pt reports I usually shake but cogentin and magnesium help ;discussed propanolol;risks/benefits reviewed. Pt started on propanolol 10mg PO TID. Pt denies SI/HI/VH. 11/10: Keeping to self. Guarded. Pt reports feeling anxious and depressed today; pt stated, the voices are telling me again that they can kill me. It was better yesterday . Pt denies SI/HI/VH. [facility] order documents were received. Last Invega Sustenna injection was on 11/05/23. Last Haldol decanoate injection was 10/29/23. Message out to patient's outpatient psychiatrist; waiting for call back. 11/11: Keeping to self. Guarded. Pt reports feeling depressed today; pt stated, I don't know why I feel this way . Pt denies SI/HI/VH/AH at this time. Patient to receive Haldol decanoate 100mg IM today; last IM was 10/29/23 per [facility]. Message out to patient's outpatient psychiatrist; waiting for call back. 11/13/2023: Continue current regimen and plans 11/14/2023: Continue current regimen and plans 11/14: keeping to self. guarded. pt reports feeling anxious and depressed today; pt stated, I don't know why I feel this way. The haldol helps with my anxiety and voices . Pt reports decreased auditory hallucinations; continues to hear them tell her they will kill her. pt denies HI/VH. Pt reports suicidal ideation to over dose on medication; pt stated, I don't know why I'm suicidal . 11/15: Patient reports feeling depressed today; she continues to report auditory hallucinations. Pt stated, the voices are telling me to kill myself by taking pills or throwing myself out of a window but I don't want to kill myself . Pt denies HI/VH. T/W spoke to patient's sister, Griselda, who reported patient's medication were messed up when she went to [facility] in August but she was fine before going to [facility] . Griselda to send home medication list 11/16: Patient reports feeling better than yesterday ; pt was not able to elaborate as to why she is feeling better. Pt stated, I'm still a little depressed ; pt denies SI/HI/VH/AH at this time. Continues to keep to self in room. encouraged to attend groups. 11/17: Staff reported pt was observed laying on bedroom floor. Pt reports feeling depressed today; pt stated, my voices told me to sleep on the floor and if not my heart would stop. I don't want to . Pt reports she feels she is getting better everyday . pt denies SI/HI/VH. Increase clozaril to 150mg PO daily. 11/18: continue current tx plan. 11/19 continue tx. decrease cogentin to 1mg po BID 11/20 continue tx. 11/21: Keeping to self. Pt continues to report feeling depressed today; pt stated, the voices have decreased but they are telling me they want to stop my heart . Pt reports she would like to go home soon. pt denies SI/HI/VH. continue current tx plan. 11/22:Pt continues to report feeling depressed today; pt stated, I feel like my depression is a little better because I have energy to do things . Pt continues to reports auditory hallucinations, pt stated, I'm worried the voices are going to kill me . pt denies SI/HI/VH. Pt reports she is going to try to not lay in bed all the time and go to some groups . Increase: Clozaril to 275mg PO bedtime 11/23: Pt reports feeling similar to yesterday ;continues to reports auditory hallucinations. Pt denies SI/HI/VH. Family meeting set up for 11/29/23 to discuss treatment. 11/24: Staff reported, pt attended multiple groups yesterday afternoon. Pt reports she continues to feel depressed but feels like it's getting better ; pt was unable to provide details as to how she feels her mood is improving. Pt stated decreased auditory hallucinations. pt denies SI/HI/VH. She reports she will continue to try to go to more groups . continue current tx plan. 11/25: Pt reports feeling good today; pt stated, I'm anxious but not depressed today. I don't know why . Pt continues to report auditory hallucinations but states they are decreasing. Pt denies SI/HI/VH. Pt to receive Haldol Decanoate IM today; pt aware. Five/for still with auditory hallucinations no changes in his medications.. 11/27 continue same treatment 11/28: Family meeting today with pt, patient's sister, Dr. Louis and outreach and education social worker, Fili, present. Reviewed risks/benefits of ECT. discussed treatment plan. Patient and sister to consider ECT treatment. Will discuss case with neurology. Pt continues to report feeling anxious and auditory hallucinations. Encouraged to attend groups and not lay in bed. keeping to self. Pt denies SI/HI/VH. [facility]. continue current tx plan. 11/30/2023 Discussed use of modafinil which may improve tolerance of clozapine may need to get as outpatient would benefit from neurology input patient does have a mass modafinil often used Reason for continued inpatient stay Substantial Risk for: harm to self and rapid decompensation Time Spent With Patient Time: Total time managing care of this patient today ____ minutes.
[2023-11-30 21:00] VITALS: BP 111/61; PULSE 98; RESP 16; TEMP 36.4; O2SAT 96
[2023-11-30 21:18] VITALS: BP 111/62; PULSE 98
[2023-11-30] MEDS: Magnesium Oxide 400 MG TABLET PO (21:18)
[2023-12-01 07:56] VITALS: BP 98/53; PULSE 84; RESP 14; TEMP 36.4; O2SAT 97
[2023-12-01 08:26] VITALS: PULSE 84
[2023-12-01] MEDS: Omeprazole 20 MG CAPSULE.DR PO (08:26)
[2023-12-01] MEDS: Benztropine Mesylate 1 MG TABLET PO ×2 (08:26→21:23)
[2023-12-01] MEDS: Thyroid,Pork 30 MG TABLET 60 MG PO (08:26)
[2023-12-01] MEDS: Folic Acid 1 MG TABLET PO (08:26)
[2023-12-01] MEDS: Loratadine 10 MG TABLET PO (08:26)
[2023-12-01] MEDS: Multivitamin TABLET 1 TAB PO (08:26)
[2023-12-01] MEDS: Propranolol HCL 10 MG TABLET PO ×3 (08:26→21:23)
[2023-12-01] MEDS: Docusate Sodium 100 MG CAPSULE PO ×2 (08:26→21:24)
--- NOTE | 2023-12-01 09:54 | P.PNPSI_ITS ---
Subjective Subjective Date of Service: 12/01/23 Reason For Visit: Unspecified anxiety disorder Subjective Notes: Conditional Voluntary Interim History: Reviewed with Dr. Louis. Pt reports feeling okay today; continues to keep to self and staying in room during the morning. Pt reports attending a group yesterday evening and plans on trying to go to more groups . Pt denies SI/HI/VH/AH today. Pt stated, I haven't had any voices yet today . Medication Compliance: Yes Side effects from medications: No Attending Groups: Intermittent Review of Systems Constitutional: Reports as per HPI Eyes: Reports as per HPI Reports as per HPI Cardiovascular: Reports as per HPI Respiratory: Reports as per HPI Gastrointestinal: Reports as per HPI Musculoskeletal: Reports as per HPI Skin/Breast: Reports as per HPI Reports as per HPI Psychiatric: Reports as per HPI Endocrine: Reports as per HPI Hematologic/Lymphatic: Reports as per HPI Allergic/Immunologic: Reports as per HPI Mental Status Exam Mental Status Exam Narrative: Pt is alert and oriented; behavior is cooperative and calm. guarded; dressed in casual attire; mood is described as okay ; eye contact appropriate; Speech is normal rate, volume and prosody and not pressured; thought process is organized; Thought content is on tx; denies SI/HI/VH/AH. Diagnostics Vital Signs (24Hr): Vital Signs - 24 hr 11/30/23 14:19 11/30/23 14:23 11/30/23 21:00 Temperature 97.6 F Pulse Rate 110 H 110 H 98 Respiratory Rate 16 Blood Pressure 102/60 102/60 111/61 Pulse Oximetry 96 Oxygen Delivery Method Room Air 11/30/23 21:18 12/01/23 07:56 12/01/23 08:26 Temperature 97.6 F Pulse Rate 98 84 84 Respiratory Rate 14 Blood Pressure 111/62 98/53 L Pulse Oximetry 97 Oxygen Delivery Method Room Air BMI result Body Mass Index 32.0 Labs 11/23/23 18:29 11/23/23 18:29 Medications Medications Current Medications Acetaminophen (Acetaminophen 325 Mg Tablet) 650 mg PO Q6H PRN PRN Reason: Headache/Pain Mild Scale (1-3) Last Admin: 11/28/23 10:13 Dose: 650 mg Al Hydroxide/Mg Hydroxide (Magnesium Hydrox/Alum Hydrox 30 Ml Oral.Susp) 30 ml PO Q6H PRN PRN Reason: Heartburn/Nausea Last Admin: 11/07/23 19:05 Dose: 30 ml Benztropine Mesylate (Benztropine Mesylate 1 Mg Tablet) 1 mg PO BID [facility] Last Admin: 12/01/23 08:26 Dose: 1 mg Clonazepam (Clonazepam 0.5 Mg Tablet) 0.5 mg PO DAILY@1700 [facility] Last Admin: 11/30/23 17:00 Dose: 0.5 mg Clozapine 200 mg/ Clozapine 75 (mg) 275 mg PO BEDTIME [facility] Last Admin: 11/30/23 21:18 Dose: 275 mg Clozapine (Clozapine 100 Mg Tablet) 150 mg PO DAILY@1400 [facility] Last Admin: 11/30/23 14:23 Dose: 150 mg Docusate Sodium (Docusate Sodium 100 Mg Capsule) 100 mg PO BID [facility] Last Admin: 12/01/23 08:26 Dose: 100 mg Folic Acid (Folic Acid 1 Mg Tablet) 1 mg PO DAILY [facility] Last Admin: 12/01/23 08:26 Dose: 1 mg Haloperidol Decanoate (Haloperidol Decanoate 50 Mg/Ml Vial) 100 mg IM Q14D [facility] Last Admin: 11/26/23 14:44 Dose: 100 mg Haloperidol Lactate (Haloperidol Lactate Oral Conc 10 Mg/5 Ml Oral.Conc) 10 mg PO BID PRN PRN Reason: Agitation Last Admin: 11/29/23 17:59 Dose: 10 mg Hydroxyzine HCl (Hydroxyzine Hcl 25 Mg Tablet) 25 mg PO Q6H PRN PRN Reason: Anxiety Last Admin: 11/28/23 22:56 Dose: 25 mg Loratadine (Loratadine 10 Mg Tablet) 10 mg PO DAILY [facility] Last Admin: 12/01/23 08:26 Dose: 10 mg Magnesium Hydroxide (Milk Of Magnesia 30 Ml Oral.Susp) 30 ml PO DAILY PRN PRN Reason: Constipation Magnesium Oxide (Magnesium Oxide 400 Mg Tablet) 400 mg PO BEDTIME [facility] Last Admin: 11/30/23 21:18 Dose: 400 mg Multivitamins/Vitamin C (Multivitamin Tablet) 1 tab PO DAILY [facility] Last Admin: 12/01/23 08:26 Dose: 1 tab Pt Own (Dimethyl Fumarate 240 Mg ( Tecfidera) Capsule, Delayed Release(Dr/Ec)) 240 mg PO BID [facility] Last Admin: 12/01/23 09:01 Dose: 240 mg Omeprazole (Omeprazole 20 Mg Capsule.Dr) 20 mg PO DAILY [facility] Last Admin: 12/01/23 08:26 Dose: 20 mg Propranolol HCl (Propranolol Hcl 10 Mg Tablet) 10 mg PO TID [facility]; Protocol Last Admin: 12/01/23 08:26 Dose: 10 mg Thyroid (Thyroid,Pork 30 Mg Tablet) 60 mg PO DAILY [facility] Last Admin: 12/01/23 08:26 Dose: 60 mg Vitamin A/Vitamin D (A And D Ointment 56.7 Gm Tube) 1 appl TOPICAL BID PRN; Protocol PRN Reason: Dry Skin Last Admin: 11/25/23 19:30 Dose: 1 appl Allergies Allergies Allergy/AdvReac Type Severity Reaction Status Date / Time Pork/Porcine Containing Allergy Unknown RASH Verified 11/07/23 13:03 Products [PORK/PORCINE CONTAINING PRODUCTS] citalopram Allergy Unknown Verified 10/17/23 02:24 trazodone Allergy Unknown Verified 10/17/23 02:24 ALPHA LIPOIC ACID Allergy Unknown Uncoded 10/17/23 02:24 SHEEP HERDER-3 THYROID TOXICITY Allergy Unknown Uncoded 10/17/23 02:24 Assessment & Plan Assessment & Plan (1) Schizoaffective disorder: Status: Acute Code(s): F25.9 - Schizoaffective disorder, unspecified Plan Presents with command hallucinations, paranoia, [facility] setting and adherent with medications. Unclear if there are any additional stressors. Need to clarify [facility] order details i.e. medications available and dose ranges. With that in mind will not make any medication changes. 11/07: Pt reports hearing more voices prior to coming to the hospital. She reports voices are telling her that someone is going to kill her. She denies SI/HI. She reports feeling anxious because of voices but also reports medication changes helped and feels better than when she came here. We discussed constipation- which she denies given combination of high dose cogentin with clozapine. She reports sleeping well. 11/08: Pt presents guarded; she reports feeling depressed . Pt reports auditory hallucinations at this time; pt stated, I'm still having suicidal thoughts. The voices tell me they want to kill me . Pt reports she does not want to harm herself. pt denies HI/VH. Waiting for [facility] documents. 11/09: Pt stated I feel better than when I came in here. The voices are quieter . Pt presents with slight persistent tremor in both hands; pt reports I usually shake but cogentin and magnesium help ;discussed propanolol;risks/benefits reviewed. Pt started on propanolol 10mg PO TID. Pt denies SI/HI/VH. 11/10: Keeping to self. Guarded. Pt reports feeling anxious and depressed today; pt stated, the voices are telling me again that they can kill me. It was better yesterday . Pt denies SI/HI/VH. [facility] order documents were received. Last Invega Sustenna injection was on 11/05/23. Last Haldol decanoate injection was 10/29/23. Message out to patient's outpatient psychiatrist; waiting for call back. 11/11: Keeping to self. Guarded. Pt reports feeling depressed today; pt stated, I don't know why I feel this way . Pt denies SI/HI/VH/AH at this time. Patient to receive Haldol decanoate 100mg IM today; last IM was 10/29/23 per [facility]. Message out to patient's outpatient psychiatrist; waiting for call back. 11/13/2023: Continue current regimen and plans 11/14/2023: Continue current regimen and plans 11/14: keeping to self. guarded. pt reports feeling anxious and depressed today; pt stated, I don't know why I feel this way. The haldol helps with my anxiety and voices . Pt reports decreased auditory hallucinations; continues to hear them tell her they will kill her. pt denies HI/VH. Pt reports suicidal ideation to over dose on medication; pt stated, I don't know why I'm suicidal . 11/15: Patient reports feeling depressed today; she continues to report auditory hallucinations. Pt stated, the voices are telling me to kill myself by taking pills or throwing myself out of a window but I don't want to kill myself . Pt denies HI/VH. T/W spoke to patient's sister, Griselda, who reported patient's medication were messed up when she went to [facility] in August but she was fine before going to [facility] . Griselda to send home medication list 11/16: Patient reports feeling better than yesterday ; pt was not able to elaborate as to why she is feeling better. Pt stated, I'm still a little depressed ; pt denies SI/HI/VH/AH at this time. Continues to keep to self in room. encouraged to attend groups. 11/17: Staff reported pt was observed laying on bedroom floor. Pt reports feeling depressed today; pt stated, my voices told me to sleep on the floor and if not my heart would stop. I don't want to . Pt reports she feels she is getting better everyday . pt denies SI/HI/VH. Increase clozaril to 150mg PO daily. 11/18: continue current tx plan. 11/19 continue tx. decrease cogentin to 1mg po BID 11/20 continue tx. 11/21: Keeping to self. Pt continues to report feeling depressed today; pt stated, the voices have decreased but they are telling me they want to stop my heart . Pt reports she would like to go home soon. pt denies SI/HI/VH. continue current tx plan. 11/22:Pt continues to report feeling depressed today; pt stated, I feel like my depression is a little better because I have energy to do things . Pt continues to reports auditory hallucinations, pt stated, I'm worried the voices are going to kill me . pt denies SI/HI/VH. Pt reports she is going to try to not lay in bed all the time and go to some groups . Increase: Clozaril to 275mg PO bedtime 11/23: Pt reports feeling similar to yesterday ;continues to reports auditory hallucinations. Pt denies SI/HI/VH. Family meeting set up for 11/29/23 to discuss treatment. 11/24: Staff reported, pt attended multiple groups yesterday afternoon. Pt reports she continues to feel depressed but feels like it's getting better ; pt was unable to provide details as to how she feels her mood is improving. Pt stated decreased auditory hallucinations. pt denies SI/HI/VH. She reports she will continue to try to go to more groups . continue current tx plan. 11/25: Pt reports feeling good today; pt stated, I'm anxious but not depressed today. I don't know why . Pt continues to report auditory hallucinations but states they are decreasing. Pt denies SI/HI/VH. Pt to receive Haldol Decanoate IM today; pt aware. Five/for still with auditory hallucinations no changes in his medications.. 11/27 continue same treatment 11/28: Family meeting today with pt, patient's sister, Dr. Louis and psychiatric social worker supervisor, Fili, present. Reviewed risks/benefits of ECT. discussed treatment plan. Patient and sister to consider ECT treatment. Will discuss case with neurology. Pt continues to report feeling anxious and auditory hallucinations. Encouraged to attend groups and not lay in bed. keeping to self. Pt denies SI/HI/VH. Pt is hoping to return to [facility] soon. continue current tx plan. 11/30: Pt reports feeling okay today; continues to keep to self and staying in room during the morning. Pt reports attending a group yesterday evening and plans on trying to go to more groups . Pt denies SI/HI/VH/AH today. Pt stated, I haven't had any voices yet today . continue current tx plan. Patient educated on: diagnosis, medication risk/benefits and therapeutic strategies Informed Consent: understands Reason for continued inpatient stay Substantial Risk for: med/psych decompensation Time Spent With Patient Time: Total time managing care of this patient today _20___ minutes.
[2023-12-01] MEDS: Haloperidol Lactate Oral Conc 10 MG/5 ML ORAL.CONC PO (13:32)
[2023-12-01] MEDS: hydrOXYzine HCL 25 MG TABLET PO (13:32)
[2023-12-01] MEDS: cloZAPine 100 MG TABLET 150 MG PO (13:32)
[2023-12-01 15:34] VITALS: BP 101/55; PULSE 101
[2023-12-01] MEDS: clonazePAM 0.5 MG TABLET PO (17:11)
[2023-12-01 21:10] VITALS: BP 132/83; PULSE 116; RESP 18; O2SAT 97
[2023-12-01] MEDS: Magnesium Oxide 400 MG TABLET PO (21:23)
[2023-12-02 08:00] VITALS: BP 95/59; PULSE 86; RESP 16; TEMP 36.9; O2SAT 96
[2023-12-02 09:05] VITALS: BP 95/59; PULSE 86
[2023-12-02] MEDS: Multivitamin TABLET 1 TAB PO (09:05)
[2023-12-02] MEDS: Docusate Sodium 100 MG CAPSULE PO ×2 (09:05→22:26)
[2023-12-02] MEDS: Thyroid,Pork 30 MG TABLET 60 MG PO (09:05)
[2023-12-02] MEDS: Propranolol HCL 10 MG TABLET PO ×3 (09:05→22:26)
[2023-12-02] MEDS: Folic Acid 1 MG TABLET PO (09:05)
[2023-12-02] MEDS: Acetaminophen 325 MG TABLET 650 MG PO (09:06)
[2023-12-02] MEDS: Loratadine 10 MG TABLET PO (09:06)
[2023-12-02] MEDS: Omeprazole 20 MG CAPSULE.DR PO (09:06)
[2023-12-02] MEDS: Benztropine Mesylate 1 MG TABLET PO ×2 (09:06→22:26)
--- NOTE | 2023-12-02 10:12 | HO.PSYCHPN ---
Subjective Subjective Date of Service: 12/02/23 Reason For Visit: Unspecified anxiety disorder Subjective Notes: Conditional Voluntary Interim History: Reviewed with Dr. Louis. Pt reports feeling better today; Pt reports attending multiple groups yesterday. Pt stated, I'm starting to feel better and I'm trying to go to more groups . Pt denies SI/HI/VH/AH. Pt reports she is worried if I go home that the voices will come back ; if pt continues to improve in mood, will plan for discharge early next week. Medication Compliance: Yes Side effects from medications: No Attending Groups: Yes Review of Systems Constitutional: Reports as per HPI Eyes: Reports as per HPI Reports as per HPI Cardiovascular: Reports as per HPI Respiratory: Reports as per HPI Gastrointestinal: Reports as per HPI Musculoskeletal: Reports as per HPI Skin/Breast: Reports as per HPI Reports as per HPI Psychiatric: Reports as per HPI Endocrine: Reports as per HPI Hematologic/Lymphatic: Reports as per HPI Allergic/Immunologic: Reports as per HPI Mental Status Exam Mental Status Exam Narrative: Pt is alert and oriented; behavior is cooperative and calm. guarded; dressed in casual attire; mood is described as better ; eye contact appropriate; Speech is normal rate, volume and prosody and not pressured; thought process is organized; Thought content is on tx; denies SI/HI/VH/AH. Diagnostics Vital Signs (24Hr): Vital Signs - 24 hr 12/01/23 15:34 12/01/23 21:10 12/02/23 08:00 Temperature 98.4 F Pulse Rate 101 H 116 H 86 Respiratory Rate 18 16 Blood Pressure 101/55 L 132/83 95/59 L Pulse Oximetry 97 96 Oxygen Delivery Method Room Air Room Air 12/02/23 09:05 Temperature Pulse Rate 86 Respiratory Rate Blood Pressure 95/59 L Pulse Oximetry Oxygen Delivery Method BMI result Body Mass Index 32.0 Labs 11/23/23 18:29 11/23/23 18:29 Medications Medications Current Medications Acetaminophen (Acetaminophen 325 Mg Tablet) 650 mg PO Q6H PRN PRN Reason: Headache/Pain Mild Scale (1-3) Last Admin: 12/02/23 09:06 Dose: 650 mg Al Hydroxide/Mg Hydroxide (Magnesium Hydrox/Alum Hydrox 30 Ml Oral.Susp) 30 ml PO Q6H PRN PRN Reason: Heartburn/Nausea Last Admin: 11/07/23 19:05 Dose: 30 ml Benztropine Mesylate (Benztropine Mesylate 1 Mg Tablet) 1 mg PO BID [facility] Last Admin: 12/02/23 09:06 Dose: 1 mg Clonazepam (Clonazepam 0.5 Mg Tablet) 0.5 mg PO DAILY@1700 [facility] Last Admin: 12/01/23 17:11 Dose: 0.5 mg Clozapine 200 mg/ Clozapine 75 (mg) 275 mg PO BEDTIME [facility] Last Admin: 12/01/23 21:24 Dose: 275 mg Clozapine (Clozapine 100 Mg Tablet) 150 mg PO DAILY@1400 [facility] Last Admin: 12/01/23 13:32 Dose: 150 mg Docusate Sodium (Docusate Sodium 100 Mg Capsule) 100 mg PO BID [facility] Last Admin: 12/02/23 09:05 Dose: 100 mg Folic Acid (Folic Acid 1 Mg Tablet) 1 mg PO DAILY [facility] Last Admin: 12/02/23 09:05 Dose: 1 mg Haloperidol Decanoate (Haloperidol Decanoate 50 Mg/Ml Vial) 100 mg IM Q14D [facility] Last Admin: 11/26/23 14:44 Dose: 100 mg Haloperidol Lactate (Haloperidol Lactate Oral Conc 10 Mg/5 Ml Oral.Conc) 10 mg PO BID PRN PRN Reason: Agitation Last Admin: 12/01/23 13:32 Dose: 10 mg Hydroxyzine HCl (Hydroxyzine Hcl 25 Mg Tablet) 25 mg PO Q6H PRN PRN Reason: Anxiety Last Admin: 12/01/23 13:32 Dose: 25 mg Loratadine (Loratadine 10 Mg Tablet) 10 mg PO DAILY [facility] Last Admin: 12/02/23 09:06 Dose: 10 mg Magnesium Hydroxide (Milk Of Magnesia 30 Ml Oral.Susp) 30 ml PO DAILY PRN PRN Reason: Constipation Magnesium Oxide (Magnesium Oxide 400 Mg Tablet) 400 mg PO BEDTIME [facility] Last Admin: 12/01/23 21:23 Dose: 400 mg Multivitamins/Vitamin C (Multivitamin Tablet) 1 tab PO DAILY [facility] Last Admin: 12/02/23 09:05 Dose: 1 tab Pt Own (Dimethyl Fumarate 240 Mg ( Tecfidera) Capsule, Delayed Release(Dr/Ec)) 240 mg PO BID [facility] Last Admin: 12/02/23 09:08 Dose: 240 mg Omeprazole (Omeprazole 20 Mg Capsule.Dr) 20 mg PO DAILY [facility] Last Admin: 12/02/23 09:06 Dose: 20 mg Propranolol HCl (Propranolol Hcl 10 Mg Tablet) 10 mg PO TID [facility]; Protocol Last Admin: 12/02/23 09:05 Dose: 10 mg Thyroid (Thyroid,Pork 30 Mg Tablet) 60 mg PO DAILY [facility] Last Admin: 12/02/23 09:05 Dose: 60 mg Vitamin A/Vitamin D (A And D Ointment 56.7 Gm Tube) 1 appl TOPICAL BID PRN; Protocol PRN Reason: Dry Skin Last Admin: 11/25/23 19:30 Dose: 1 appl Allergies Allergies Allergy/AdvReac Type Severity Reaction Status Date / Time Pork/Porcine Containing Allergy Unknown RASH Verified 11/07/23 13:03 Products [PORK/PORCINE CONTAINING PRODUCTS] citalopram Allergy Unknown Verified 10/17/23 02:24 trazodone Allergy Unknown Verified 10/17/23 02:24 ALPHA LIPOIC ACID Allergy Unknown Uncoded 10/17/23 02:24 TRAVEL NURSE-3 THYROID TOXICITY Allergy Unknown Uncoded 10/17/23 02:24 Assessment & Plan Assessment & Plan (1) Schizoaffective disorder: Status: Acute Code(s): F25.9 - Schizoaffective disorder, unspecified Plan Presents with command hallucinations, paranoia, detention setting and adherent with medications. Unclear if there are any additional stressors. Need to clarify [facility] order details i.e. medications available and dose ranges. With that in mind will not make any medication changes. 11/07: Pt reports hearing more voices prior to coming to the hospital. She reports voices are telling her that someone is going to kill her. She denies SI/HI. She reports feeling anxious because of voices but also reports medication changes helped and feels better than when she came here. We discussed constipation- which she denies given combination of high dose cogentin with clozapine. She reports sleeping well. 11/08: Pt presents guarded; she reports feeling depressed . Pt reports auditory hallucinations at this time; pt stated, I'm still having suicidal thoughts. The voices tell me they want to kill me . Pt reports she does not want to harm herself. pt denies HI/VH. Waiting for [facility] documents. 11/09: Pt stated I feel better than when I came in here. The voices are quieter . Pt presents with slight persistent tremor in both hands; pt reports I usually shake but cogentin and magnesium help ;discussed propanolol;risks/benefits reviewed. Pt started on propanolol 10mg PO TID. Pt denies SI/HI/VH. 11/10: Keeping to self. Guarded. Pt reports feeling anxious and depressed today; pt stated, the voices are telling me again that they can kill me. It was better yesterday . Pt denies SI/HI/VH. [facility] order documents were received. Last Invega Sustenna injection was on 11/05/23. Last Haldol decanoate injection was 10/29/23. Message out to patient's outpatient psychiatrist; waiting for call back. 11/11: Keeping to self. Guarded. Pt reports feeling depressed today; pt stated, I don't know why I feel this way . Pt denies SI/HI/VH/AH at this time. Patient to receive Haldol decanoate 100mg IM today; last IM was 10/29/23 per [facility]. Message out to patient's outpatient psychiatrist; waiting for call back. 11/13/2023: Continue current regimen and plans 11/14/2023: Continue current regimen and plans 11/14: keeping to self. guarded. pt reports feeling anxious and depressed today; pt stated, I don't know why I feel this way. The haldol helps with my anxiety and voices . Pt reports decreased auditory hallucinations; continues to hear them tell her they will kill her. pt denies HI/VH. Pt reports suicidal ideation to over dose on medication; pt stated, I don't know why I'm suicidal . 11/15: Patient reports feeling depressed today; she continues to report auditory hallucinations. Pt stated, the voices are telling me to kill myself by taking pills or throwing myself out of a window but I don't want to kill myself . Pt denies HI/VH. T/W spoke to patient's sister, Griselda, who reported patient's medication were messed up when she went to [facility] in August but she was fine before going to [facility] . Griselda to send home medication list 11/16: Patient reports feeling better than yesterday ; pt was not able to elaborate as to why she is feeling better. Pt stated, I'm still a little depressed ; pt denies SI/HI/VH/AH at this time. Continues to keep to self in room. encouraged to attend groups. 11/17: Staff reported pt was observed laying on bedroom floor. Pt reports feeling depressed today; pt stated, my voices told me to sleep on the floor and if not my heart would stop. I don't want to . Pt reports she feels she is getting better everyday . pt denies SI/HI/VH. Increase clozaril to 150mg PO daily. 11/18: continue current tx plan. 11/19 continue tx. decrease cogentin to 1mg po BID 11/20 continue tx. 11/21: Keeping to self. Pt continues to report feeling depressed today; pt stated, the voices have decreased but they are telling me they want to stop my heart . Pt reports she would like to go home soon. pt denies SI/HI/VH. continue current tx plan. 11/22:Pt continues to report feeling depressed today; pt stated, I feel like my depression is a little better because I have energy to do things . Pt continues to reports auditory hallucinations, pt stated, I'm worried the voices are going to kill me . pt denies SI/HI/VH. Pt reports she is going to try to not lay in bed all the time and go to some groups . Increase: Clozaril to 275mg PO bedtime 11/23: Pt reports feeling similar to yesterday ;continues to reports auditory hallucinations. Pt denies SI/HI/VH. Family meeting set up for 11/29/23 to discuss treatment. 11/24: Staff reported, pt attended multiple groups yesterday afternoon. Pt reports she continues to feel depressed but feels like it's getting better ; pt was unable to provide details as to how she feels her mood is improving. Pt stated decreased auditory hallucinations. pt denies SI/HI/VH. She reports she will continue to try to go to more groups . continue current tx plan. 11/25: Pt reports feeling good today; pt stated, I'm anxious but not depressed today. I don't know why . Pt continues to report auditory hallucinations but states they are decreasing. Pt denies SI/HI/VH. Pt to receive Haldol Decanoate IM today; pt aware. Five/for still with auditory hallucinations no changes in his medications.. 5/ continue same treatment 11/28: Family meeting today with pt, patient's sister, Dr. Louis and social media director, Fili, present. Reviewed risks/benefits of ECT. discussed treatment plan. Patient and sister to consider ECT treatment. Will discuss case with neurology. Pt continues to report feeling anxious and auditory hallucinations. Encouraged to attend groups and not lay in bed. keeping to self. Pt denies SI/HI/VH. Pt is hoping to return to detention soon. continue current tx plan. 11/30: Pt reports feeling okay today; continues to keep to self and staying in room during the morning. Pt reports attending a group yesterday evening and plans on trying to go to more groups . Pt denies SI/HI/VH/AH today. Pt stated, I haven't had any voices yet today . continue current tx plan. 12/01: Pt reports feeling better today; Pt reports attending multiple groups yesterday. Pt stated, I'm starting to feel better and I'm trying to go to more groups . Pt denies SI/HI/VH/AH. Pt reports she is worried if I go home that the voices will come back ; if pt continues to improve in mood, will plan for discharge early next week. continue current tx plan. Patient educated on: diagnosis, medication risk/benefits and therapeutic strategies Informed Consent: understands Reason for continued inpatient stay Substantial Risk for: med/psych decompensation Time Spent With Patient Time: Total time managing care of this patient today _20___ minutes.
[2023-12-02] MEDS: cloZAPine 100 MG TABLET 150 MG PO (14:49)
[2023-12-02 15:49] VITALS: BP 98/55; PULSE 93
[2023-12-02] MEDS: clonazePAM 0.5 MG TABLET PO (17:37)
[2023-12-02 22:25] VITALS: BP 115/81; PULSE 111; RESP 16; TEMP 36.6; O2SAT 98
[2023-12-02] MEDS: Magnesium Oxide 400 MG TABLET PO (22:27)
[2023-12-03] MEDS: hydrOXYzine HCL 25 MG TABLET PO (00:53)
[2023-12-03 07:39] VITALS: BP 91/56; PULSE 88; RESP 14; TEMP 35.5; O2SAT 97
--- NOTE | 2023-12-03 09:05 | HO.PSYCHPN ---
Subjective Subjective Date of Service: 12/03/23 Reason For Visit: Unspecified anxiety disorder Subjective Notes: Conditional Voluntary Interim History: Reviewed with Dr. Louis. Pt reports feeling good today; pt stated, I feel similar to yesterday. I have voices today but they are less and lower . Pt denies SI/HI/VH. Pt reports she feels ready to go home next week . Medication Compliance: Yes Side effects from medications: No Attending Groups: Yes Review of Systems Constitutional: Reports as per HPI Eyes: Reports as per HPI Reports as per HPI Cardiovascular: Reports as per HPI Respiratory: Reports as per HPI Gastrointestinal: Reports as per HPI Musculoskeletal: Reports as per HPI Skin/Breast: Reports as per HPI Reports as per HPI Psychiatric: Reports as per HPI Endocrine: Reports as per HPI Hematologic/Lymphatic: Reports as per HPI Allergic/Immunologic: Reports as per HPI Mental Status Exam Mental Status Exam Narrative: Pt is alert and oriented; behavior is cooperative and calm. guarded; dressed in casual attire; mood is described as good ; eye contact appropriate; Speech is normal rate, volume and prosody and not pressured; thought process is organized; Thought content is on tx; denies SI/HI/VH. Pt reports decreased auditory hallucinations. Diagnostics Vital Signs (24Hr): Vital Signs - 24 hr 12/02/23 15:49 12/02/23 22:25 12/03/23 07:39 Temperature 97.9 F 95.9 F L Pulse Rate 93 111 H 88 Respiratory Rate 16 14 Blood Pressure 98/55 L 115/81 91/56 L Pulse Oximetry 98 97 Oxygen Delivery Method Room Air Room Air BMI result Body Mass Index 32.0 Labs 11/23/23 18:29 11/23/23 18:29 Medications Medications Current Medications Acetaminophen (Acetaminophen 325 Mg Tablet) 650 mg PO Q6H PRN PRN Reason: Headache/Pain Mild Scale (1-3) Last Admin: 12/02/23 09:06 Dose: 650 mg Al Hydroxide/Mg Hydroxide (Magnesium Hydrox/Alum Hydrox 30 Ml Oral.Susp) 30 ml PO Q6H PRN PRN Reason: Heartburn/Nausea Last Admin: 11/07/23 19:05 Dose: 30 ml Benztropine Mesylate (Benztropine Mesylate 1 Mg Tablet) 1 mg PO BID [facility] Last Admin: 12/02/23 22:26 Dose: 1 mg Clonazepam (Clonazepam 0.5 Mg Tablet) 0.5 mg PO DAILY@1700 [facility] Last Admin: 12/02/23 17:37 Dose: 0.5 mg Clozapine 200 mg/ Clozapine 75 (mg) 275 mg PO BEDTIME [facility] Last Admin: 12/02/23 22:26 Dose: 275 mg Clozapine (Clozapine 100 Mg Tablet) 150 mg PO DAILY@1400 [facility] Last Admin: 12/02/23 14:49 Dose: 150 mg Docusate Sodium (Docusate Sodium 100 Mg Capsule) 100 mg PO BID [facility] Last Admin: 12/02/23 22:26 Dose: 100 mg Folic Acid (Folic Acid 1 Mg Tablet) 1 mg PO DAILY [facility] Last Admin: 12/02/23 09:05 Dose: 1 mg Haloperidol Decanoate (Haloperidol Decanoate 50 Mg/Ml Vial) 100 mg IM Q14D [facility] Last Admin: 11/26/23 14:44 Dose: 100 mg Haloperidol Lactate (Haloperidol Lactate Oral Conc 10 Mg/5 Ml Oral.Conc) 10 mg PO BID PRN PRN Reason: Agitation Last Admin: 12/01/23 13:32 Dose: 10 mg Hydroxyzine HCl (Hydroxyzine Hcl 25 Mg Tablet) 25 mg PO Q6H PRN PRN Reason: Anxiety Last Admin: 12/03/23 00:53 Dose: 25 mg Loratadine (Loratadine 10 Mg Tablet) 10 mg PO DAILY [facility] Last Admin: 12/02/23 09:06 Dose: 10 mg Magnesium Hydroxide (Milk Of Magnesia 30 Ml Oral.Susp) 30 ml PO DAILY PRN PRN Reason: Constipation Magnesium Oxide (Magnesium Oxide 400 Mg Tablet) 400 mg PO BEDTIME [facility] Last Admin: 12/02/23 22:27 Dose: 400 mg Multivitamins/Vitamin C (Multivitamin Tablet) 1 tab PO DAILY [facility] Last Admin: 12/02/23 09:05 Dose: 1 tab Pt Own (Dimethyl Fumarate 240 Mg ( Tecfidera) Capsule, Delayed Release(Dr/Ec)) 240 mg PO BID [facility] Last Admin: 12/02/23 22:34 Dose: 240 mg Omeprazole (Omeprazole 20 Mg Capsule.Dr) 20 mg PO DAILY [facility] Last Admin: 12/02/23 09:06 Dose: 20 mg Propranolol HCl (Propranolol Hcl 10 Mg Tablet) 10 mg PO TID [facility]; Protocol Last Admin: 12/02/23 22:26 Dose: 10 mg Thyroid (Thyroid,Pork 30 Mg Tablet) 60 mg PO DAILY [facility] Last Admin: 12/02/23 09:05 Dose: 60 mg Vitamin A/Vitamin D (A And D Ointment 56.7 Gm Tube) 1 appl TOPICAL BID PRN; Protocol PRN Reason: Dry Skin Last Admin: 11/25/23 19:30 Dose: 1 appl Allergies Allergies Allergy/AdvReac Type Severity Reaction Status Date / Time Pork/Porcine Containing Allergy Unknown RASH Verified 11/07/23 13:03 Products [PORK/PORCINE CONTAINING PRODUCTS] citalopram Allergy Unknown Verified 10/17/23 02:24 trazodone Allergy Unknown Verified 10/17/23 02:24 ALPHA LIPOIC ACID Allergy Unknown Uncoded 10/17/23 02:24 SOFTWARE ENGINEER MOBILE-3 THYROID TOXICITY Allergy Unknown Uncoded 10/17/23 02:24 Assessment & Plan Assessment & Plan (1) Schizoaffective disorder: Status: Acute Code(s): F25.9 - Schizoaffective disorder, unspecified Plan Presents with command hallucinations, paranoia, [facility] setting and adherent with medications. Unclear if there are any additional stressors. Need to clarify [facility] order details i.e. medications available and dose ranges. With that in mind will not make any medication changes. 11/07: Pt reports hearing more voices prior to coming to the hospital. She reports voices are telling her that someone is going to kill her. She denies SI/HI. She reports feeling anxious because of voices but also reports medication changes helped and feels better than when she came here. We discussed constipation- which she denies given combination of high dose cogentin with clozapine. She reports sleeping well. 11/08: Pt presents guarded; she reports feeling depressed . Pt reports auditory hallucinations at this time; pt stated, I'm still having suicidal thoughts. The voices tell me they want to kill me . Pt reports she does not want to harm herself. pt denies HI/VH. Waiting for [facility] documents. 11/09: Pt stated I feel better than when I came in here. The voices are quieter . Pt presents with slight persistent tremor in both hands; pt reports I usually shake but cogentin and magnesium help ;discussed propanolol;risks/benefits reviewed. Pt started on propanolol 10mg PO TID. Pt denies SI/HI/VH. 11/10: Keeping to self. Guarded. Pt reports feeling anxious and depressed today; pt stated, the voices are telling me again that they can kill me. It was better yesterday . Pt denies SI/HI/VH. [facility] order documents were received. Last Invega Sustenna injection was on 11/05/23. Last Haldol decanoate injection was 10/29/23. Message out to patient's outpatient psychiatrist; waiting for call back. 11/11: Keeping to self. Guarded. Pt reports feeling depressed today; pt stated, I don't know why I feel this way . Pt denies SI/HI/VH/AH at this time. Patient to receive Haldol decanoate 100mg IM today; last IM was 10/29/23 per [facility]. Message out to patient's outpatient psychiatrist; waiting for call back. 11/13/2023: Continue current regimen and plans 11/14/2023: Continue current regimen and plans 11/14: keeping to self. guarded. pt reports feeling anxious and depressed today; pt stated, I don't know why I feel this way. The haldol helps with my anxiety and voices . Pt reports decreased auditory hallucinations; continues to hear them tell her they will kill her. pt denies HI/VH. Pt reports suicidal ideation to over dose on medication; pt stated, I don't know why I'm suicidal . 11/15: Patient reports feeling depressed today; she continues to report auditory hallucinations. Pt stated, the voices are telling me to kill myself by taking pills or throwing myself out of a window but I don't want to kill myself . Pt denies HI/VH. T/W spoke to patient's sister, Griselda, who reported patient's medication were messed up when she went to [facility] in August but she was fine before going to [facility] . Griselda to send home medication list 11/16: Patient reports feeling better than yesterday ; pt was not able to elaborate as to why she is feeling better. Pt stated, I'm still a little depressed ; pt denies SI/HI/VH/AH at this time. Continues to keep to self in room. encouraged to attend groups. 11/17: Staff reported pt was observed laying on bedroom floor. Pt reports feeling depressed today; pt stated, my voices told me to sleep on the floor and if not my heart would stop. I don't want to . Pt reports she feels she is getting better everyday . pt denies SI/HI/VH. Increase clozaril to 150mg PO daily. 11/18: continue current tx plan. 11/19 continue tx. decrease cogentin to 1mg po BID 11/20 continue tx. 11/21: Keeping to self. Pt continues to report feeling depressed today; pt stated, the voices have decreased but they are telling me they want to stop my heart . Pt reports she would like to go home soon. pt denies SI/HI/VH. continue current tx plan. 11/22:Pt continues to report feeling depressed today; pt stated, I feel like my depression is a little better because I have energy to do things . Pt continues to reports auditory hallucinations, pt stated, I'm worried the voices are going to kill me . pt denies SI/HI/VH. Pt reports she is going to try to not lay in bed all the time and go to some groups . Increase: Clozaril to 275mg PO bedtime 11/23: Pt reports feeling similar to yesterday ;continues to reports auditory hallucinations. Pt denies SI/HI/VH. Family meeting set up for 11/29/23 to discuss treatment. 11/24: Staff reported, pt attended multiple groups yesterday afternoon. Pt reports she continues to feel depressed but feels like it's getting better ; pt was unable to provide details as to how she feels her mood is improving. Pt stated decreased auditory hallucinations. pt denies SI/HI/VH. She reports she will continue to try to go to more groups . continue current tx plan. 11/25: Pt reports feeling good today; pt stated, I'm anxious but not depressed today. I don't know why . Pt continues to report auditory hallucinations but states they are decreasing. Pt denies SI/HI/VH. Pt to receive Haldol Decanoate IM today; pt aware. Five/for still with auditory hallucinations no changes in his medications.. 11/27 continue same treatment 11/28: Family meeting today with pt, patient's sister, Dr. Louis and manager social responsibility, Fili, present. Reviewed risks/benefits of ECT. discussed treatment plan. Patient and sister to consider ECT treatment. Will discuss case with neurology. Pt continues to report feeling anxious and auditory hallucinations. Encouraged to attend groups and not lay in bed. keeping to self. Pt denies SI/HI/VH. Pt is hoping to return to [facility] soon. continue current tx plan. 11/30: Pt reports feeling okay today; continues to keep to self and staying in room during the morning. Pt reports attending a group yesterday evening and plans on trying to go to more groups . Pt denies SI/HI/VH/AH today. Pt stated, I haven't had any voices yet today . continue current tx plan. 12/01: Pt reports feeling better today; Pt reports attending multiple groups yesterday. Pt stated, I'm starting to feel better and I'm trying to go to more groups . Pt denies SI/HI/VH/AH. Pt reports she is worried if I go home that the voices will come back ; if pt continues to improve in mood, will plan for discharge early next week. continue current tx plan. 12/02: Pt reports feeling good today; pt stated, I feel similar to yesterday. I have voices today but they are less and lower . Pt denies SI/HI/VH. Pt reports she feels ready to go home next week . continue current tx plan. Patient educated on: diagnosis, medication risk/benefits and therapeutic strategies Informed Consent: understands Reason for continued inpatient stay Substantial Risk for: med/psych decompensation Time Spent With Patient Time: Total time managing care of this patient today _20___ minutes.
[2023-12-03] MEDS: Thyroid,Pork 30 MG TABLET 60 MG PO (09:22)
[2023-12-03] MEDS: Loratadine 10 MG TABLET PO (09:22)
[2023-12-03] MEDS: Docusate Sodium 100 MG CAPSULE PO ×2 (09:22→21:16)
[2023-12-03] MEDS: Benztropine Mesylate 1 MG TABLET PO ×2 (09:22→21:16)
[2023-12-03] MEDS: Omeprazole 20 MG CAPSULE.DR PO (09:22)
[2023-12-03] MEDS: Multivitamin TABLET 1 TAB PO (09:22)
[2023-12-03] MEDS: Folic Acid 1 MG TABLET PO (09:22)
[2023-12-03 09:24] VITALS: BP 91/56; PULSE 88
[2023-12-03 13:58] VITALS: BP 134/82; PULSE 124; RESP 18
[2023-12-03] MEDS: cloZAPine 100 MG TABLET 150 MG PO (14:08)
[2023-12-03] MEDS: Propranolol HCL 10 MG TABLET PO ×2 (14:08→21:16)
[2023-12-03] MEDS: clonazePAM 0.5 MG TABLET PO (16:20)
[2023-12-03 21:09] VITALS: BP 125/81; PULSE 112; RESP 16; TEMP 35.8; O2SAT 97
[2023-12-03] MEDS: Magnesium Oxide 400 MG TABLET PO (21:16)
--- NOTE | 2023-12-04 10:48 | P.PNPSI_ITS ---
Subjective Subjective Date of Service: 12/04/23 Reason For Visit: Unspecified anxiety disorder Subjective Notes: Conditional Voluntary Interim History: Reviewed with Dr. Louis. Pt reports feeling good today; Pt reports auditory hallucinations but have lowered . Continues to be more active on the unit in the afternoon. denies SI/HI/VH. Medication Compliance: Yes Side effects from medications: No Attending Groups: Yes Review of Systems Constitutional: Reports as per HPI Eyes: Reports as per HPI Reports as per HPI Cardiovascular: Reports as per HPI Respiratory: Reports as per HPI Gastrointestinal: Reports as per HPI Musculoskeletal: Reports as per HPI Skin/Breast: Reports as per HPI Reports as per HPI Psychiatric: Reports as per HPI Endocrine: Reports as per HPI Hematologic/Lymphatic: Reports as per HPI Allergic/Immunologic: Reports as per HPI Mental Status Exam Mental Status Exam Narrative: Pt is alert and oriented; behavior is cooperative and calm. guarded; dressed in casual attire; mood is described as good ; eye contact appropriate; Speech is normal rate, volume and prosody and not pressured; thought process is organized; Thought content is on tx; denies SI/HI/VH. Pt reports decreased auditory hallucinations. Diagnostics Vital Signs (24Hr): Vital Signs - 24 hr 12/03/23 13:58 12/03/23 21:09 Temperature 96.4 F L Pulse Rate 124 H 112 H Respiratory Rate 18 16 Blood Pressure 134/82 125/81 Pulse Oximetry 97 Oxygen Delivery Method Room Air BMI result Body Mass Index 32.0 Labs 11/23/23 18:29 11/23/23 18:29 Medications Medications Current Medications Acetaminophen (Acetaminophen 325 Mg Tablet) 650 mg PO Q6H PRN PRN Reason: Headache/Pain Mild Scale (1-3) Last Admin: 12/02/23 09:06 Dose: 650 mg Al Hydroxide/Mg Hydroxide (Magnesium Hydrox/Alum Hydrox 30 Ml Oral.Susp) 30 ml PO Q6H PRN PRN Reason: Heartburn/Nausea Last Admin: 11/07/23 19:05 Dose: 30 ml Benztropine Mesylate (Benztropine Mesylate 1 Mg Tablet) 1 mg PO BID [facility] Last Admin: 12/03/23 21:16 Dose: 1 mg Clonazepam (Clonazepam 0.5 Mg Tablet) 0.5 mg PO DAILY@1700 [facility] Last Admin: 12/03/23 16:20 Dose: 0.5 mg Clozapine 200 mg/ Clozapine 75 (mg) 275 mg PO BEDTIME [facility] Last Admin: 12/03/23 21:15 Dose: 275 mg Clozapine (Clozapine 100 Mg Tablet) 150 mg PO DAILY@1400 [facility] Last Admin: 12/03/23 14:08 Dose: 150 mg Docusate Sodium (Docusate Sodium 100 Mg Capsule) 100 mg PO BID [facility] Last Admin: 12/03/23 21:16 Dose: 100 mg Folic Acid (Folic Acid 1 Mg Tablet) 1 mg PO DAILY [facility] Last Admin: 12/03/23 09:22 Dose: 1 mg Haloperidol Decanoate (Haloperidol Decanoate 50 Mg/Ml Vial) 100 mg IM Q14D [facility] Last Admin: 11/26/23 14:44 Dose: 100 mg Haloperidol Lactate (Haloperidol Lactate Oral Conc 10 Mg/5 Ml Oral.Conc) 10 mg PO BID PRN PRN Reason: Agitation Last Admin: 12/01/23 13:32 Dose: 10 mg Hydroxyzine HCl (Hydroxyzine Hcl 25 Mg Tablet) 25 mg PO Q6H PRN PRN Reason: Anxiety Last Admin: 12/03/23 00:53 Dose: 25 mg Loratadine (Loratadine 10 Mg Tablet) 10 mg PO DAILY [facility] Last Admin: 12/03/23 09:22 Dose: 10 mg Magnesium Hydroxide (Milk Of Magnesia 30 Ml Oral.Susp) 30 ml PO DAILY PRN PRN Reason: Constipation Magnesium Oxide (Magnesium Oxide 400 Mg Tablet) 400 mg PO BEDTIME [facility] Last Admin: 12/03/23 21:16 Dose: 400 mg Multivitamins/Vitamin C (Multivitamin Tablet) 1 tab PO DAILY [facility] Last Admin: 12/03/23 09:22 Dose: 1 tab Pt Own (Dimethyl Fumarate 240 Mg ( Tecfidera) Capsule, Delayed Release(Dr/Ec)) 240 mg PO BID [facility] Last Admin: 12/03/23 21:16 Dose: 240 mg Omeprazole (Omeprazole 20 Mg Capsule.Dr) 20 mg PO DAILY [facility] Last Admin: 12/03/23 09:22 Dose: 20 mg Propranolol HCl (Propranolol Hcl 10 Mg Tablet) 10 mg PO TID [facility]; Protocol Last Admin: 12/03/23 21:16 Dose: 10 mg Thyroid (Thyroid,Pork 30 Mg Tablet) 60 mg PO DAILY [facility] Last Admin: 12/03/23 09:22 Dose: 60 mg Vitamin A/Vitamin D (A And D Ointment 56.7 Gm Tube) 1 appl TOPICAL BID PRN; Protocol PRN Reason: Dry Skin Last Admin: 11/25/23 19:30 Dose: 1 appl Allergies Allergies Allergy/AdvReac Type Severity Reaction Status Date / Time Pork/Porcine Containing Allergy Unknown RASH Verified 11/07/23 13:03 Products [PORK/PORCINE CONTAINING PRODUCTS] citalopram Allergy Unknown Verified 10/17/23 02:24 trazodone Allergy Unknown Verified 10/17/23 02:24 ALPHA LIPOIC ACID Allergy Unknown Uncoded 10/17/23 02:24 DEMO SPECIALIST-3 THYROID TOXICITY Allergy Unknown Uncoded 10/17/23 02:24 Assessment & Plan Assessment & Plan (1) Schizoaffective disorder: Status: Acute Code(s): F25.9 - Schizoaffective disorder, unspecified Plan Presents with command hallucinations, paranoia, jail setting and adherent with medications. Unclear if there are any additional stressors. Need to clarify [facility] order details i.e. medications available and dose ranges. With that in mind will not make any medication changes. 11/07: Pt reports hearing more voices prior to coming to the hospital. She reports voices are telling her that someone is going to kill her. She denies SI/HI. She reports feeling anxious because of voices but also reports medication changes helped and feels better than when she came here. We discussed constipation- which she denies given combination of high dose cogentin with clozapine. She reports sleeping well. 11/08: Pt presents guarded; she reports feeling depressed . Pt reports auditory hallucinations at this time; pt stated, I'm still having suicidal thoughts. The voices tell me they want to kill me . Pt reports she does not want to harm herself. pt denies HI/VH. Waiting for [facility] documents. 11/09: Pt stated I feel better than when I came in here. The voices are quieter . Pt presents with slight persistent tremor in both hands; pt reports I usually shake but cogentin and magnesium help ;discussed propanolol;risks/benefits reviewed. Pt started on propanolol 10mg PO TID. Pt denies SI/HI/VH. 11/10: Keeping to self. Guarded. Pt reports feeling anxious and depressed today; pt stated, the voices are telling me again that they can kill me. It was better yesterday . Pt denies SI/HI/VH. [facility] order documents were received. Last Invega Sustenna injection was on 11/05/23. Last Haldol decanoate injection was 10/29/23. Message out to patient's outpatient psychiatrist; waiting for call back. 11/11: Keeping to self. Guarded. Pt reports feeling depressed today; pt stated, I don't know why I feel this way . Pt denies SI/HI/VH/AH at this time. Patient to receive Haldol decanoate 100mg IM today; last IM was 10/29/23 per [facility]. Message out to patient's outpatient psychiatrist; waiting for call back. 11/13/2023: Continue current regimen and plans 11/14/2023: Continue current regimen and plans 11/14: keeping to self. guarded. pt reports feeling anxious and depressed today; pt stated, I don't know why I feel this way. The haldol helps with my anxiety and voices . Pt reports decreased auditory hallucinations; continues to hear them tell her they will kill her. pt denies HI/VH. Pt reports suicidal ideation to over dose on medication; pt stated, I don't know why I'm suicidal . 11/15: Patient reports feeling depressed today; she continues to report auditory hallucinations. Pt stated, the voices are telling me to kill myself by taking pills or throwing myself out of a window but I don't want to kill myself . Pt denies HI/VH. T/W spoke to patient's sister, Griselda, who reported patient's medication were messed up when she went to [facility] in August but she was fine before going to [facility] . Griselda to send home medication list 11/16: Patient reports feeling better than yesterday ; pt was not able to elaborate as to why she is feeling better. Pt stated, I'm still a little depressed ; pt denies SI/HI/VH/AH at this time. Continues to keep to self in room. encouraged to attend groups. 11/17: Staff reported pt was observed laying on bedroom floor. Pt reports feeling depressed today; pt stated, my voices told me to sleep on the floor and if not my heart would stop. I don't want to . Pt reports she feels she is getting better everyday . pt denies SI/HI/VH. Increase clozaril to 150mg PO daily. 11/18: continue current tx plan. 11/19 continue tx. decrease cogentin to 1mg po BID 11/20 continue tx. 11/21: Keeping to self. Pt continues to report feeling depressed today; pt stated, the voices have decreased but they are telling me they want to stop my heart . Pt reports she would like to go home soon. pt denies SI/HI/VH. continue current tx plan. 11/22:Pt continues to report feeling depressed today; pt stated, I feel like my depression is a little better because I have energy to do things . Pt continues to reports auditory hallucinations, pt stated, I'm worried the voices are going to kill me . pt denies SI/HI/VH. Pt reports she is going to try to not lay in bed all the time and go to some groups . Increase: Clozaril to 275mg PO bedtime 11/23: Pt reports feeling similar to yesterday ;continues to reports auditory hallucinations. Pt denies SI/HI/VH. Family meeting set up for 11/29/23 to discuss treatment. 11/24: Staff reported, pt attended multiple groups yesterday afternoon. Pt reports she continues to feel depressed but feels like it's getting better ; pt was unable to provide details as to how she feels her mood is improving. Pt stated decreased auditory hallucinations. pt denies SI/HI/VH. She reports she will continue to try to go to more groups . continue current tx plan. 11/25: Pt reports feeling good today; pt stated, I'm anxious but not depressed today. I don't know why . Pt continues to report auditory hallucinations but states they are decreasing. Pt denies SI/HI/VH. Pt to receive Haldol Decanoate IM today; pt aware. Five/for still with auditory hallucinations no changes in his medications.. 11/27 continue same treatment 11/28: Family meeting today with pt, patient's sister, Dr. Louis and nephrology social worker, Fili, present. Reviewed risks/benefits of ECT. discussed treatment plan. Patient and sister to consider ECT treatment. Will discuss case with neurology. Pt continues to report feeling anxious and auditory hallucinations. Encouraged to attend groups and not lay in bed. keeping to self. Pt denies SI/HI/VH. Pt is hoping to return to jail soon. continue current tx plan. 11/30: Pt reports feeling okay today; continues to keep to self and staying in room during the morning. Pt reports attending a group yesterday evening and plans on trying to go to more groups . Pt denies SI/HI/VH/AH today. Pt stated, I haven't had any voices yet today . continue current tx plan. 12/01: Pt reports feeling better today; Pt reports attending multiple groups yesterday. Pt stated, I'm starting to feel better and I'm trying to go to more groups . Pt denies SI/HI/VH/AH. Pt reports she is worried if I go home that the voices will come back ; if pt continues to improve in mood, will plan for discharge early next week. continue current tx plan. 12/02: Pt reports feeling good today; pt stated, I feel similar to yesterday. I have voices today but they are less and lower . Pt denies SI/HI/VH. Pt reports she feels ready to go home next week . continue current tx plan. 12/03: continue current tx plan. Patient educated on: diagnosis, medication risk/benefits and therapeutic strategies Informed Consent: understands Reason for continued inpatient stay Substantial Risk for: med/psych decompensation Time Spent With Patient Time: Total time managing care of this patient today _20___ minutes.
[2023-12-04 12:10] VITALS: BP 105/56; PULSE 113; RESP 16; TEMP 36.1; O2SAT 97
[2023-12-04] MEDS: Loratadine 10 MG TABLET PO (12:17)
[2023-12-04 12:18] VITALS: BP 105/56; PULSE 113
[2023-12-04] MEDS: Propranolol HCL 10 MG TABLET PO ×3 (12:18→21:44)
[2023-12-04] MEDS: Multivitamin TABLET 1 TAB PO (12:18)
[2023-12-04] MEDS: Benztropine Mesylate 1 MG TABLET PO ×2 (12:18→21:44)
[2023-12-04] MEDS: Docusate Sodium 100 MG CAPSULE PO ×2 (12:18→21:43)
[2023-12-04] MEDS: Folic Acid 1 MG TABLET PO (12:19)
[2023-12-04] MEDS: Thyroid,Pork 30 MG TABLET 60 MG PO (12:19)
[2023-12-04] MEDS: Omeprazole 20 MG CAPSULE.DR PO (12:19)
[2023-12-04 15:07] VITALS: BP 100/61; PULSE 103
[2023-12-04 15:27] VITALS: BP 100/61; PULSE 103
[2023-12-04] MEDS: cloZAPine 100 MG TABLET 150 MG PO (15:27)
[2023-12-04] MEDS: clonazePAM 0.5 MG TABLET PO (18:04)
[2023-12-04 21:29] VITALS: BP 121/75; PULSE 109; RESP 16; TEMP 36.7; O2SAT 95
[2023-12-04] MEDS: Magnesium Oxide 400 MG TABLET PO (21:44)
[2023-12-05 07:44] LABS: Neut%MD 44.2 %; Neutrophils Absolute Auto 2.6 x10*3/uL (2.0-8.3); WBCANC 5.8 X10*3/uL
--- NOTE | 2023-12-05 08:34 | HO.PSYCHPN ---
Subjective Subjective Date of Service: 12/05/23 Reason For Visit: Unspecified anxiety disorder Subjective Notes: Conditional Voluntary Interim History: Reviewed with Dr. Louis. Pt reports feeling good today; Pt stated, I'm not anxious or depressed today. I'm still feeling ready to go home . Pt continue to report auditory hallucinations but have lowered . denies SI/HI/VH. Medication Compliance: Yes Side effects from medications: No Attending Groups: Intermittent Review of Systems Review of Systems Chronic lower leg weakness Patient otherwise has no medical complaints Constitutional: Reports as per HPI Eyes: Reports as per HPI Reports as per HPI Cardiovascular: Reports as per HPI Respiratory: Reports as per HPI Gastrointestinal: Reports as per HPI Musculoskeletal: Reports as per HPI Skin/Breast: Reports as per HPI Reports as per HPI Psychiatric: Reports as per HPI Endocrine: Reports as per HPI Hematologic/Lymphatic: Reports as per HPI Allergic/Immunologic: Reports as per HPI Mental Status Exam Mental Status Exam Narrative: Pt is alert and oriented; behavior is cooperative and calm. guarded; dressed in casual attire; mood is described as good ; eye contact appropriate; Speech is normal rate, volume and prosody and not pressured; thought process is organized; Thought content is on tx; denies SI/HI/VH. Pt reports decreased auditory hallucinations. Diagnostics Vital Signs (24Hr): Vital Signs - 24 hr 12/04/23 12:10 12/04/23 12:18 12/04/23 15:07 Temperature 96.9 F Pulse Rate 113 H 113 H 103 H Respiratory Rate 16 Blood Pressure 105/56 L 105/56 L 100/61 Pulse Oximetry 97 Oxygen Delivery Method Room Air 12/04/23 15:27 12/04/23 21:29 Temperature 98.0 F Pulse Rate 103 H 109 H Respiratory Rate 16 Blood Pressure 100/61 121/75 Pulse Oximetry 95 Oxygen Delivery Method Room Air BMI result Body Mass Index 32.0 Labs 11/23/23 18:29 11/23/23 18:29 Labs: Laboratory Results - last 48 hr 12/05/23 07:36 Absolute Neuts (auto) 2.6 Medications Medications Current Medications Acetaminophen (Acetaminophen 325 Mg Tablet) 650 mg PO Q6H PRN PRN Reason: Headache/Pain Mild Scale (1-3) Last Admin: 12/02/23 09:06 Dose: 650 mg Al Hydroxide/Mg Hydroxide (Magnesium Hydrox/Alum Hydrox 30 Ml Oral.Susp) 30 ml PO Q6H PRN PRN Reason: Heartburn/Nausea Last Admin: 11/07/23 19:05 Dose: 30 ml Benztropine Mesylate (Benztropine Mesylate 1 Mg Tablet) 1 mg PO BID REPLACED BY [facility] Last Admin: 12/04/23 21:44 Dose: 1 mg Clonazepam (Clonazepam 0.5 Mg Tablet) 0.5 mg PO DAILY@1700 REPLACED BY [facility] Last Admin: 12/04/23 18:04 Dose: 0.5 mg Clozapine 200 mg/ Clozapine 75 (mg) 275 mg PO BEDTIME REPLACED BY [facility] Last Admin: 12/04/23 21:44 Dose: 275 mg Clozapine (Clozapine 100 Mg Tablet) 150 mg PO DAILY@1400 REPLACED BY [facility] Last Admin: 12/04/23 15:27 Dose: 150 mg Docusate Sodium (Docusate Sodium 100 Mg Capsule) 100 mg PO BID REPLACED BY [facility] Last Admin: 12/04/23 21:43 Dose: 100 mg Folic Acid (Folic Acid 1 Mg Tablet) 1 mg PO DAILY REPLACED BY [facility] Last Admin: 12/04/23 12:19 Dose: 1 mg Haloperidol Decanoate (Haloperidol Decanoate 50 Mg/Ml Vial) 100 mg IM Q14D REPLACED BY [facility] Last Admin: 11/26/23 14:44 Dose: 100 mg Haloperidol Lactate (Haloperidol Lactate Oral Conc 10 Mg/5 Ml Oral.Conc) 10 mg PO BID PRN PRN Reason: Agitation Last Admin: 12/01/23 13:32 Dose: 10 mg Hydroxyzine HCl (Hydroxyzine Hcl 25 Mg Tablet) 25 mg PO Q6H PRN PRN Reason: Anxiety Last Admin: 12/03/23 00:53 Dose: 25 mg Loratadine (Loratadine 10 Mg Tablet) 10 mg PO DAILY REPLACED BY [facility] Last Admin: 12/04/23 12:17 Dose: 10 mg Magnesium Hydroxide (Milk Of Magnesia 30 Ml Oral.Susp) 30 ml PO DAILY PRN PRN Reason: Constipation Magnesium Oxide (Magnesium Oxide 400 Mg Tablet) 400 mg PO BEDTIME REPLACED BY [facility] Last Admin: 12/04/23 21:44 Dose: 400 mg Multivitamins/Vitamin C (Multivitamin Tablet) 1 tab PO DAILY REPLACED BY [facility] Last Admin: 12/04/23 12:18 Dose: 1 tab Pt Own (Dimethyl Fumarate 240 Mg ( Tecfidera) Capsule, Delayed Release(Dr/Ec)) 240 mg PO BID REPLACED BY [facility] Last Admin: 12/04/23 21:44 Dose: 240 mg Omeprazole (Omeprazole 20 Mg Capsule.) 20 mg PO DAILY REPLACED BY [facility] Last Admin: 12/04/23 12:19 Dose: 20 mg Propranolol HCl (Propranolol Hcl 10 Mg Tablet) 10 mg PO TID LEW; Protocol Last Admin: 12/04/23 21:44 Dose: 10 mg Thyroid (Thyroid,Pork 30 Mg Tablet) 60 mg PO DAILY REPLACED BY [facility] Last Admin: 12/04/23 12:19 Dose: 60 mg Vitamin A/Vitamin D (A And D Ointment 56.7 Gm Tube) 1 appl TOPICAL BID PRN; Protocol PRN Reason: Dry Skin Last Admin: 11/25/23 19:30 Dose: 1 appl Allergies Allergies Allergy/AdvReac Type Severity Reaction Status Date / Time Pork/Porcine Containing Allergy Unknown RASH Verified 11/07/23 13:03 Products [PORK/PORCINE CONTAINING PRODUCTS] citalopram Allergy Unknown Verified 10/17/23 02:24 trazodone Allergy Unknown Verified 10/17/23 02:24 ALPHA LIPOIC ACID Allergy Unknown Uncoded 10/17/23 02:24 DOCTOR'S ASSISTANT-3 THYROID TOXICITY Allergy Unknown Uncoded 10/17/23 02:24 Assessment & Plan Assessment & Plan (1) Schizoaffective disorder: Status: Acute Code(s): F25.9 - Schizoaffective disorder, unspecified Plan Presents with command hallucinations, paranoia, [facility] setting and adherent with medications. Unclear if there are any additional stressors. Need to clarify [facility] order details i.e. medications available and dose ranges. With that in mind will not make any medication changes. 11/07: Pt reports hearing more voices prior to coming to the hospital. She reports voices are telling her that someone is going to kill her. She denies SI/HI. She reports feeling anxious because of voices but also reports medication changes helped and feels better than when she came here. We discussed constipation- which she denies given combination of high dose cogentin with clozapine. She reports sleeping well. 11/08: Pt presents guarded; she reports feeling depressed . Pt reports auditory hallucinations at this time; pt stated, I'm still having suicidal thoughts. The voices tell me they want to kill me . Pt reports she does not want to harm herself. pt denies HI/VH. Waiting for [facility] documents. 11/09: Pt stated I feel better than when I came in here. The voices are quieter . Pt presents with slight persistent tremor in both hands; pt reports I usually shake but cogentin and magnesium help ;discussed propanolol;risks/benefits reviewed. Pt started on propanolol 10mg PO TID. Pt denies SI/HI/VH. 11/10: Keeping to self. Guarded. Pt reports feeling anxious and depressed today; pt stated, the voices are telling me again that they can kill me. It was better yesterday . Pt denies SI/HI/VH. [facility] order documents were received. Last Invega Sustenna injection was on 11/05/23. Last Haldol decanoate injection was 10/29/23. Message out to patient's outpatient psychiatrist; waiting for call back. 11/11: Keeping to self. Guarded. Pt reports feeling depressed today; pt stated, I don't know why I feel this way . Pt denies SI/HI/VH/AH at this time. Patient to receive Haldol decanoate 100mg IM today; last IM was 10/29/23 per [facility]. Message out to patient's outpatient psychiatrist; waiting for call back. 11/13/2023: Continue current regimen and plans 11/14/2023: Continue current regimen and plans 11/14: keeping to self. guarded. pt reports feeling anxious and depressed today; pt stated, I don't know why I feel this way. The haldol helps with my anxiety and voices . Pt reports decreased auditory hallucinations; continues to hear them tell her they will kill her. pt denies HI/VH. Pt reports suicidal ideation to over dose on medication; pt stated, I don't know why I'm suicidal . 11/15: Patient reports feeling depressed today; she continues to report auditory hallucinations. Pt stated, the voices are telling me to kill myself by taking pills or throwing myself out of a window but I don't want to kill myself . Pt denies HI/VH. T/W spoke to patient's sister, Griselda, who reported patient's medication were messed up when she went to [facility] in August but she was fine before going to [facility] . Griselda to send home medication list 11/16: Patient reports feeling better than yesterday ; pt was not able to elaborate as to why she is feeling better. Pt stated, I'm still a little depressed ; pt denies SI/HI/VH/AH at this time. Continues to keep to self in room. encouraged to attend groups. 11/17: Staff reported pt was observed laying on bedroom floor. Pt reports feeling depressed today; pt stated, my voices told me to sleep on the floor and if not my heart would stop. I don't want to . Pt reports she feels she is getting better everyday . pt denies SI/HI/VH. Increase clozaril to 150mg PO daily. 11/18: continue current tx plan. 11/19 continue tx. decrease cogentin to 1mg po BID 11/20 continue tx. 11/21: Keeping to self. Pt continues to report feeling depressed today; pt stated, the voices have decreased but they are telling me they want to stop my heart . Pt reports she would like to go home soon. pt denies SI/HI/VH. continue current tx plan. 11/22:Pt continues to report feeling depressed today; pt stated, I feel like my depression is a little better because I have energy to do things . Pt continues to reports auditory hallucinations, pt stated, I'm worried the voices are going to kill me . pt denies SI/HI/VH. Pt reports she is going to try to not lay in bed all the time and go to some groups . Increase: Clozaril to 275mg PO bedtime 11/23: Pt reports feeling similar to yesterday ;continues to reports auditory hallucinations. Pt denies SI/HI/VH. Family meeting set up for 11/29/23 to discuss treatment. 11/24: Staff reported, pt attended multiple groups yesterday afternoon. Pt reports she continues to feel depressed but feels like it's getting better ; pt was unable to provide details as to how she feels her mood is improving. Pt stated decreased auditory hallucinations. pt denies SI/HI/VH. She reports she will continue to try to go to more groups . continue current tx plan. 11/25: Pt reports feeling good today; pt stated, I'm anxious but not depressed today. I don't know why . Pt continues to report auditory hallucinations but states they are decreasing. Pt denies SI/HI/VH. Pt to receive Haldol Decanoate IM today; pt aware. Five/for still with auditory hallucinations no changes in his medications.. 11/27 continue same treatment 11/28: Family meeting today with pt, patient's sister, Dr. Louis and social sciences professor, Fili, present. Reviewed risks/benefits of ECT. discussed treatment plan. Patient and sister to consider ECT treatment. Will discuss case with neurology. Pt continues to report feeling anxious and auditory hallucinations. Encouraged to attend groups and not lay in bed. keeping to self. Pt denies SI/HI/VH. Pt is [facility]. continue current tx plan. 11/30: Pt reports feeling okay today; continues to keep to self and staying in room during the morning. Pt reports attending a group yesterday evening and plans on trying to go to more groups . Pt denies SI/HI/VH/AH today. Pt stated, I haven't had any voices yet today . continue current tx plan. 12/01: Pt reports feeling better today; Pt reports attending multiple groups yesterday. Pt stated, I'm starting to feel better and I'm trying to go to more groups . Pt denies SI/HI/VH/AH. Pt reports she is worried if I go home that the voices will come back ; if pt continues to improve in mood, will plan for discharge early next week. continue current tx plan. 12/02: Pt reports feeling good today; pt stated, I feel similar to yesterday. I have voices today but they are less and lower . Pt denies SI/HI/VH. Pt reports she feels ready to go home next week . continue current tx plan. 12/03: continue current tx plan. 12/04: Pt reports feeling good today; Pt stated, I'm not anxious or depressed today. I'm still feeling ready to go home . Pt continue to report auditory hallucinations but have lowered . denies SI/HI/VH. Patient educated on: diagnosis, medication risk/benefits and therapeutic strategies Informed Consent: understands Reason for continued inpatient stay Substantial Risk for: med/psych decompensation Time Spent With Patient Time: Total time managing care of this patient today _20___ minutes.
[2023-12-05 08:45] VITALS: BP 94/52; PULSE 84; RESP 14; TEMP 36.3; O2SAT 96
[2023-12-05 09:32] VITALS: BP 94/52; PULSE 84
[2023-12-05] MEDS: Folic Acid 1 MG TABLET PO (09:32)
[2023-12-05] MEDS: Multivitamin TABLET 1 TAB PO (09:32)
[2023-12-05] MEDS: Propranolol HCL 10 MG TABLET PO ×3 (09:32→21:45)
[2023-12-05] MEDS: Omeprazole 20 MG CAPSULE.DR PO (09:32)
[2023-12-05] MEDS: Loratadine 10 MG TABLET PO (09:32)
[2023-12-05] MEDS: Docusate Sodium 100 MG CAPSULE PO ×2 (09:32→21:46)
[2023-12-05] MEDS: Benztropine Mesylate 1 MG TABLET PO ×2 (09:32→21:46)
[2023-12-05] MEDS: Thyroid,Pork 30 MG TABLET 60 MG PO (09:32)
[2023-12-05 15:33] VITALS: BP 125/78; PULSE 110
[2023-12-05 15:36] VITALS: BP 125/78; PULSE 110
[2023-12-05] MEDS: cloZAPine 100 MG TABLET 150 MG PO (15:36)
[2023-12-05] MEDS: clonazePAM 0.5 MG TABLET PO (18:01)
[2023-12-05 21:00] VITALS: BP 104/61; PULSE 112; RESP 16; TEMP 36.5; O2SAT 95
[2023-12-05 21:45] VITALS: BP 104/61; PULSE 112
[2023-12-05] MEDS: Magnesium Oxide 400 MG TABLET PO (21:46)
[2023-12-05] MEDS: A and D Ointment 56.7 GM TUBE 1 APPL TOPICAL (21:50)
[2023-12-06 07:49] VITALS: BP 102/56; PULSE 96; RESP 16; TEMP 36.5; O2SAT 96
[2023-12-06 09:10] VITALS: BP 102/56; PULSE 96
[2023-12-06] MEDS: Docusate Sodium 100 MG CAPSULE PO ×2 (09:10→21:36)
[2023-12-06] MEDS: Thyroid,Pork 30 MG TABLET 60 MG PO (09:10)
[2023-12-06] MEDS: Folic Acid 1 MG TABLET PO (09:10)
[2023-12-06] MEDS: Propranolol HCL 10 MG TABLET PO ×3 (09:10→21:36)
[2023-12-06] MEDS: Loratadine 10 MG TABLET PO (09:10)
[2023-12-06] MEDS: Omeprazole 20 MG CAPSULE.DR PO (09:10)
[2023-12-06] MEDS: Multivitamin TABLET 1 TAB PO (09:10)
[2023-12-06] MEDS: Benztropine Mesylate 1 MG TABLET PO ×2 (09:10→21:37)
[2023-12-06] MEDS: Acetaminophen 325 MG TABLET 650 MG PO (09:14)
--- NOTE | 2023-12-06 09:19 | P.PNPSI_ITS ---
Subjective Subjective Date of Service: 12/06/23 Reason For Visit: Unspecified anxiety disorder Subjective Notes: Conditional Voluntary Interim History: Reviewed with Dr. Louis. Keeping to self. Pt reports feeling anxious today; Pt stated, I'm worried about going home because the voices are saying that if I leave then I will have to come back here . Pt continues to report auditory hallucinations but have lowered . denies SI/HI/VH. Pt to receive monthly Invega Sustenna 234mg IM today. Medication Compliance: Yes Side effects from medications: No Attending Groups: Intermittent Review of Systems Review of Systems Chronic lower leg weakness Patient otherwise has no medical complaints Constitutional: Reports as per HPI Eyes: Reports as per HPI Reports as per HPI Cardiovascular: Reports as per HPI Respiratory: Reports as per HPI Gastrointestinal: Reports as per HPI Musculoskeletal: Reports as per HPI Skin/Breast: Reports as per HPI Reports as per HPI Psychiatric: Reports as per HPI Endocrine: Reports as per HPI Hematologic/Lymphatic: Reports as per HPI Allergic/Immunologic: Reports as per HPI Mental Status Exam Mental Status Exam Narrative: Pt is alert and oriented; behavior is cooperative and calm. guarded; dressed in casual attire; mood is described as anxious ; eye contact appropriate; Speech is normal rate, volume and prosody and not pressured; thought process is organized; Thought content is on tx; denies SI/HI/VH. Pt reports decreased auditory hallucinations. Diagnostics Vital Signs (24Hr): Vital Signs - 24 hr 12/05/23 09:32 12/05/23 15:33 12/05/23 15:36 Temperature Pulse Rate 84 110 H 110 H Respiratory Rate Blood Pressure 94/52 L 125/78 125/78 Pulse Oximetry Oxygen Delivery Method 12/05/23 21:00 12/05/23 21:45 12/06/23 07:49 Temperature 97.7 F 97.7 F Pulse Rate 112 H 112 H 96 Respiratory Rate 16 16 Blood Pressure 104/61 104/61 102/56 L Pulse Oximetry 95 96 Oxygen Delivery Method Room Air Room Air BMI result Body Mass Index 32.0 Labs 11/23/23 18:29 11/23/23 18:29 Labs: Laboratory Results - last 48 hr 12/05/23 07:36 Absolute Neuts (auto) 2.6 Medications Medications Current Medications Acetaminophen (Acetaminophen 325 Mg Tablet) 650 mg PO Q6H PRN PRN Reason: Headache/Pain Mild Scale (1-3) Last Admin: 12/02/23 09:06 Dose: 650 mg Al Hydroxide/Mg Hydroxide (Magnesium Hydrox/Alum Hydrox 30 Ml Oral.Susp) 30 ml PO Q6H PRN PRN Reason: Heartburn/Nausea Last Admin: 11/07/23 19:05 Dose: 30 ml Benztropine Mesylate (Benztropine Mesylate 1 Mg Tablet) 1 mg PO BID [facility] Last Admin: 12/05/23 21:46 Dose: 1 mg Clonazepam (Clonazepam 0.5 Mg Tablet) 0.5 mg PO DAILY@1700 [facility] Last Admin: 12/05/23 18:01 Dose: 0.5 mg Clozapine 200 mg/ Clozapine 75 (mg) 275 mg PO BEDTIME [facility] Last Admin: 12/05/23 21:45 Dose: 275 mg Clozapine (Clozapine 100 Mg Tablet) 150 mg PO DAILY@1400 [facility] Last Admin: 12/05/23 15:36 Dose: 150 mg Docusate Sodium (Docusate Sodium 100 Mg Capsule) 100 mg PO BID [facility] Last Admin: 12/05/23 21:46 Dose: 100 mg Folic Acid (Folic Acid 1 Mg Tablet) 1 mg PO DAILY [facility] Last Admin: 12/05/23 09:32 Dose: 1 mg Haloperidol Decanoate (Haloperidol Decanoate 50 Mg/Ml Vial) 100 mg IM Q14D [facility] Last Admin: 11/26/23 14:44 Dose: 100 mg Haloperidol Lactate (Haloperidol Lactate Oral Conc 10 Mg/5 Ml Oral.Conc) 10 mg PO BID PRN PRN Reason: Agitation Last Admin: 12/01/23 13:32 Dose: 10 mg Hydroxyzine HCl (Hydroxyzine Hcl 25 Mg Tablet) 25 mg PO Q6H PRN PRN Reason: Anxiety Last Admin: 12/03/23 00:53 Dose: 25 mg Loratadine (Loratadine 10 Mg Tablet) 10 mg PO DAILY [facility] Last Admin: 12/05/23 09:32 Dose: 10 mg Magnesium Hydroxide (Milk Of Magnesia 30 Ml Oral.Susp) 30 ml PO DAILY PRN PRN Reason: Constipation Magnesium Oxide (Magnesium Oxide 400 Mg Tablet) 400 mg PO BEDTIME [facility] Last Admin: 12/05/23 21:46 Dose: 400 mg Multivitamins/Vitamin C (Multivitamin Tablet) 1 tab PO DAILY [facility] Last Admin: 12/05/23 09:32 Dose: 1 tab Pt Own (Dimethyl Fumarate 240 Mg ( Tecfidera) Capsule, Delayed Release(Dr/Ec)) 240 mg PO BID [facility] Last Admin: 12/05/23 21:45 Dose: 240 mg Omeprazole (Omeprazole 20 Mg Capsule.Dr) 20 mg PO DAILY [facility] Last Admin: 12/05/23 09:32 Dose: 20 mg Propranolol HCl (Propranolol Hcl 10 Mg Tablet) 10 mg PO TID [facility]; Protocol Last Admin: 12/05/23 21:45 Dose: 10 mg Thyroid (Thyroid,Pork 30 Mg Tablet) 60 mg PO DAILY [facility] Last Admin: 12/05/23 09:32 Dose: 60 mg Vitamin A/Vitamin D (A And D Ointment 56.7 Gm Tube) 1 appl TOPICAL BID PRN; Protocol PRN Reason: Dry Skin Last Admin: 12/05/23 21:50 Dose: 1 appl Allergies Allergies Allergy/AdvReac Type Severity Reaction Status Date / Time Pork/Porcine Containing Allergy Unknown RASH Verified 11/07/23 13:03 Products [PORK/PORCINE CONTAINING PRODUCTS] citalopram Allergy Unknown Verified 10/17/23 02:24 trazodone Allergy Unknown Verified 10/17/23 02:24 ALPHA LIPOIC ACID Allergy Unknown Uncoded 10/17/23 02:24 [employer]IST-3 THYROID TOXICITY Allergy Unknown Uncoded 10/17/23 02:24 Assessment & Plan Assessment & Plan (1) Schizoaffective disorder: Status: Acute Code(s): F25.9 - Schizoaffective disorder, unspecified Plan Presents with command hallucinations, paranoia, residential setting and adherent with medications. Unclear if there are any additional stressors. Need to clarify [facility] order details i.e. medications available and dose ranges. With that in mind will not make any medication changes. 11/07: Pt reports hearing more voices prior to coming to the hospital. She reports voices are telling her that someone is going to kill her. She denies SI/HI. She reports feeling anxious because of voices but also reports medication changes helped and feels better than when she came here. We discussed constipation- which she denies given combination of high dose cogentin with clozapine. She reports sleeping well. 11/08: Pt presents guarded; she reports feeling depressed . Pt reports auditory hallucinations at this time; pt stated, I'm still having suicidal thoughts. The voices tell me they want to kill me . Pt reports she does not want to harm herself. pt denies HI/VH. Waiting for [facility] documents. 11/09: Pt stated I feel better than when I came in here. The voices are quieter . Pt presents with slight persistent tremor in both hands; pt reports I usually shake but cogentin and magnesium help ;discussed propanolol;risks/benefits reviewed. Pt started on propanolol 10mg PO TID. Pt denies SI/HI/VH. 11/10: Keeping to self. Guarded. Pt reports feeling anxious and depressed today; pt stated, the voices are telling me again that they can kill me. It was better yesterday . Pt denies SI/HI/VH. [facility] order documents were received. Last Invega Sustenna injection was on 11/05/23. Last Haldol decanoate injection was 10/29/23. Message out to patient's outpatient psychiatrist; waiting for call back. 11/11: Keeping to self. Guarded. Pt reports feeling depressed today; pt stated, I don't know why I feel this way . Pt denies SI/HI/VH/AH at this time. Patient to receive Haldol decanoate 100mg IM today; last IM was 10/29/23 per [facility]. Message out to patient's outpatient psychiatrist; waiting for call back. 11/13/2023: Continue current regimen and plans 11/14/2023: Continue current regimen and plans 11/14: keeping to self. guarded. pt reports feeling anxious and depressed today; pt stated, I don't know why I feel this way. The haldol helps with my anxiety and voices . Pt reports decreased auditory hallucinations; continues to hear them tell her they will kill her. pt denies HI/VH. Pt reports suicidal ideation to over dose on medication; pt stated, I don't know why I'm suicidal . 11/15: Patient reports feeling depressed today; she continues to report auditory hallucinations. Pt stated, the voices are telling me to kill myself by taking pills or throwing myself out of a window but I don't want to kill myself . Pt denies HI/VH. T/W spoke to patient's sister, Griselda, who reported patient's medication were messed up when she went to [facility] in August but she was fine before going to [facility] . Griselda to send home medication list 11/16: Patient reports feeling better than yesterday ; pt was not able to elaborate as to why she is feeling better. Pt stated, I'm still a little depressed ; pt denies SI/HI/VH/AH at this time. Continues to keep to self in room. encouraged to attend groups. 11/17: Staff reported pt was observed laying on bedroom floor. Pt reports feeling depressed today; pt stated, my voices told me to sleep on the floor and if not my heart would stop. I don't want to . Pt reports she feels she is getting better everyday . pt denies SI/HI/VH. Increase clozaril to 150mg PO daily. 11/18: continue current tx plan. 11/19 continue tx. decrease cogentin to 1mg po BID 11/20 continue tx. 11/21: Keeping to self. Pt continues to report feeling depressed today; pt stated, the voices have decreased but they are telling me they want to stop my heart . Pt reports she would like to go home soon. pt denies SI/HI/VH. continue current tx plan. 11/22:Pt continues to report feeling depressed today; pt stated, I feel like my depression is a little better because I have energy to do things . Pt continues to reports auditory hallucinations, pt stated, I'm worried the voices are going to kill me . pt denies SI/HI/VH. Pt reports she is going to try to not lay in bed all the time and go to some groups . Increase: Clozaril to 275mg PO bedtime 11/23: Pt reports feeling similar to yesterday ;continues to reports auditory hallucinations. Pt denies SI/HI/VH. Family meeting set up for 11/29/23 to discuss treatment. 11/24: Staff reported, pt attended multiple groups yesterday afternoon. Pt reports she continues to feel depressed but feels like it's getting better ; pt was unable to provide details as to how she feels her mood is improving. Pt stated decreased auditory hallucinations. pt denies SI/HI/VH. She reports she will continue to try to go to more groups . continue current tx plan. 11/25: Pt reports feeling good today; pt stated, I'm anxious but not depressed today. I don't know why . Pt continues to report auditory hallucinations but states they are decreasing. Pt denies SI/HI/VH. Pt to receive Haldol Decanoate IM today; pt aware. Five/for still with auditory hallucinations no changes in his medications.. 11/27 continue same treatment 11/28: Family meeting today with pt, patient's sister, Dr. Louis and clinical social worker, Fili, present. Reviewed risks/benefits of ECT. discussed treatment plan. Patient and sister to consider ECT treatment. Will discuss case with neurology. Pt continues to report feeling anxious and auditory hallucinations. Encouraged to attend groups and not lay in bed. keeping to self. Pt denies SI/HI/VH. Pt is hoping to return to residential soon. continue current tx plan. 11/30: Pt reports feeling okay today; continues to keep to self and staying in room during the morning. Pt reports attending a group yesterday evening and plans on trying to go to more groups . Pt denies SI/HI/VH/AH today. Pt stated, I haven't had any voices yet today . continue current tx plan. 12/01: Pt reports feeling better today; Pt reports attending multiple groups yesterday. Pt stated, I'm starting to feel better and I'm trying to go to more groups . Pt denies SI/HI/VH/AH. Pt reports she is worried if I go home that the voices will come back ; if pt continues to improve in mood, will plan for discharge early next week. continue current tx plan. 12/02: Pt reports feeling good today; pt stated, I feel similar to yesterday. I have voices today but they are less and lower . Pt denies SI/HI/VH. Pt reports she feels ready to go home next week . continue current tx plan. 12/03: continue current tx plan. 12/04: Pt reports feeling good today; Pt stated, I'm not anxious or depressed today. I'm still feeling ready to go home . Pt continue to report auditory hallucinations but have lowered . denies SI/HI/VH. 12/05: Keeping to self. Pt reports feeling anxious today; Pt stated, I'm worried about going home because the voices are saying that if I leave then I will have to come back here . Pt continues to report auditory hallucinations but have lowered . denies SI/HI/VH. Pt to receive monthly Invega Sustenna 234mg IM today. Patient educated on: diagnosis, medication risk/benefits and therapeutic strategies Informed Consent: understands Reason for continued inpatient stay Substantial Risk for: med/psych decompensation Time Spent With Patient Time: Total time managing care of this patient today _20___ minutes.
[2023-12-06 14:38] VITALS: BP 97/56; PULSE 101
[2023-12-06 14:42] VITALS: BP 97/56; PULSE 101
[2023-12-06] MEDS: cloZAPine 100 MG TABLET 150 MG PO (14:42)
[2023-12-06] MEDS: clonazePAM 0.5 MG TABLET PO (17:54)
[2023-12-06] MEDS: Paliperidone Palmitate 234 MG/1.5 ML SYRINGE IM (18:54)
[2023-12-06 21:30] VITALS: BP 126/80; PULSE 110; RESP 16; TEMP 36.7; O2SAT 98
[2023-12-06] MEDS: A and D Ointment 56.7 GM TUBE 1 APPL TOPICAL (21:35)
[2023-12-06] MEDS: Magnesium Oxide 400 MG TABLET PO (21:36)
[2023-12-07 08:00] VITALS: BP 93/64; PULSE 97; RESP 16; O2SAT 97
[2023-12-07 09:13] VITALS: BP 93/64; PULSE 97
[2023-12-07] MEDS: Omeprazole 20 MG CAPSULE.DR PO (09:43)
[2023-12-07] MEDS: Folic Acid 1 MG TABLET PO (09:44)
[2023-12-07] MEDS: Benztropine Mesylate 1 MG TABLET PO ×2 (09:44→21:32)
[2023-12-07] MEDS: Loratadine 10 MG TABLET PO (09:44)
[2023-12-07] MEDS: Multivitamin TABLET 1 TAB PO (09:44)
[2023-12-07] MEDS: Docusate Sodium 100 MG CAPSULE PO ×2 (09:44→21:32)
[2023-12-07] MEDS: Thyroid,Pork 30 MG TABLET 60 MG PO (09:45)
--- NOTE | 2023-12-07 11:03 | P.PNPSI_ITS ---
Subjective Subjective Date of Service: 12/07/23 Reason For Visit: Unspecified anxiety disorder Subjective Notes: Conditional Voluntary Interim History: Pt slept most of the night. Pt mostly in bed during the day. She seems someone somnolent. She denies SI/HI. She reports less VH/AH. No overt delusional content. Review of Systems Review of Systems Chronic lower leg weakness Patient otherwise has no medical complaints Yes all other systems are reviewed and are negative Constitutional: Reports as per HPI Eyes: Reports as per HPI Reports as per HPI Cardiovascular: Reports as per HPI Respiratory: Reports as per HPI Gastrointestinal: Reports as per HPI Musculoskeletal: Reports as per HPI Skin/Breast: Reports as per HPI Reports as per HPI Psychiatric: Reports as per HPI Endocrine: Reports as per HPI Hematologic/Lymphatic: Reports as per HPI Allergic/Immunologic: Reports as per HPI Mental Status Exam Mental Status Exam Narrative: Pt is alert and oriented x 3; behavior is cooperative and calm. guarded; dressed in casual attire; mood is described as anxious ; eye contact appropriate; Speech is normal rate, volume and prosody and not pressured; thought process is organized; Thought content is on tx; denies SI/HI/VH. Pt reports decreased auditory hallucinations. Diagnostics Vital Signs (24Hr): Vital Signs - 24 hr 12/06/23 14:38 12/06/23 14:42 12/06/23 21:30 Temperature 98.1 F Pulse Rate 101 H 101 H 110 H Respiratory Rate 16 Blood Pressure 97/56 L 97/56 L 126/80 Pulse Oximetry 98 Oxygen Delivery Method Room Air 12/07/23 08:00 12/07/23 09:13 Temperature Pulse Rate 97 97 Respiratory Rate 16 Blood Pressure 93/64 93/64 Pulse Oximetry 97 Oxygen Delivery Method Room Air BMI result Body Mass Index 32.0 Labs 11/23/23 18:29 11/23/23 18:29 Medications Medications Current Medications Acetaminophen (Acetaminophen 325 Mg Tablet) 650 mg PO Q6H PRN PRN Reason: Headache/Pain Mild Scale (1-3) Last Admin: 12/06/23 09:14 Dose: 650 mg Al Hydroxide/Mg Hydroxide (Magnesium Hydrox/Alum Hydrox 30 Ml Oral.Susp) 30 ml PO Q6H PRN PRN Reason: Heartburn/Nausea Last Admin: 11/07/23 19:05 Dose: 30 ml Benztropine Mesylate (Benztropine Mesylate 1 Mg Tablet) 1 mg PO BID [facility] Last Admin: 12/07/23 09:44 Dose: 1 mg Clonazepam (Clonazepam 0.5 Mg Tablet) 0.5 mg PO DAILY@1700 [facility] Last Admin: 12/06/23 17:54 Dose: 0.5 mg Clozapine 200 mg/ Clozapine 75 (mg) 275 mg PO BEDTIME [facility] Last Admin: 12/06/23 21:36 Dose: 275 mg Clozapine (Clozapine 100 Mg Tablet) 150 mg PO DAILY@1400 [facility] Last Admin: 12/06/23 14:42 Dose: 150 mg Docusate Sodium (Docusate Sodium 100 Mg Capsule) 100 mg PO BID [facility] Last Admin: 12/07/23 09:44 Dose: 100 mg Folic Acid (Folic Acid 1 Mg Tablet) 1 mg PO DAILY [facility] Last Admin: 12/07/23 09:44 Dose: 1 mg Haloperidol Decanoate (Haloperidol Decanoate 50 Mg/Ml Vial) 100 mg IM Q14D [facility] Last Admin: 11/26/23 14:44 Dose: 100 mg Haloperidol Lactate (Haloperidol Lactate Oral Conc 10 Mg/5 Ml Oral.Conc) 10 mg PO BID PRN PRN Reason: Agitation Last Admin: 12/01/23 13:32 Dose: 10 mg Hydroxyzine HCl (Hydroxyzine Hcl 25 Mg Tablet) 25 mg PO Q6H PRN PRN Reason: Anxiety Last Admin: 12/03/23 00:53 Dose: 25 mg Loratadine (Loratadine 10 Mg Tablet) 10 mg PO DAILY [facility] Last Admin: 12/07/23 09:44 Dose: 10 mg Magnesium Hydroxide (Milk Of Magnesia 30 Ml Oral.Susp) 30 ml PO DAILY PRN PRN Reason: Constipation Magnesium Oxide (Magnesium Oxide 400 Mg Tablet) 400 mg PO BEDTIME [facility] Last Admin: 12/06/23 21:36 Dose: 400 mg Multivitamins/Vitamin C (Multivitamin Tablet) 1 tab PO DAILY [facility] Last Admin: 12/07/23 09:44 Dose: 1 tab Pt Own (Dimethyl Fumarate 240 Mg ( Tecfidera) Capsule, Delayed Release(Dr/Ec)) 240 mg PO BID [facility] Last Admin: 12/07/23 09:43 Dose: 240 mg Omeprazole (Omeprazole 20 Mg Capsule.Dr) 20 mg PO DAILY [facility] Last Admin: 12/07/23 09:43 Dose: 20 mg Paliperidone Palmitate (Paliperidone Palmitate 234 Mg/1.5 Ml Syringe) 234 mg IM Q30D [facility] Last Admin: 12/06/23 18:54 Dose: 234 mg Propranolol HCl (Propranolol Hcl 10 Mg Tablet) 10 mg PO TID LEW; Protocol Last Admin: 12/07/23 09:13 Dose: Not Given Thyroid (Thyroid,Pork 30 Mg Tablet) 60 mg PO DAILY [facility] Last Admin: 12/07/23 09:45 Dose: 60 mg Vitamin A/Vitamin D (A And D Ointment 56.7 Gm Tube) 1 appl TOPICAL BID PRN; Protocol PRN Reason: Dry Skin Last Admin: 12/06/23 21:35 Dose: 1 appl Allergies Allergies Allergy/AdvReac Type Severity Reaction Status Date / Time Pork/Porcine Containing Allergy Unknown RASH Verified 11/07/23 13:03 Products [PORK/PORCINE CONTAINING PRODUCTS] citalopram Allergy Unknown Verified 10/17/23 02:24 trazodone Allergy Unknown Verified 10/17/23 02:24 ALPHA LIPOIC ACID Allergy Unknown Uncoded 10/17/23 02:24 PI/SENIOR RESEARCH ASSOCIATE-3 THYROID TOXICITY Allergy Unknown Uncoded 10/17/23 02:24 Assessment & Plan Assessment & Plan (1) Schizoaffective disorder: Status: Acute Code(s): F25.9 - Schizoaffective disorder, unspecified Plan Presents with command hallucinations, paranoia, long term setting and adherent with medications. Unclear if there are any additional stressors. Need to clarify How[facility] order details i.e. medications available and dose ranges. With that in mind will not make any medication changes. 11/07: Pt reports hearing more voices prior to coming to the hospital. She reports voices are telling her that someone is going to kill her. She denies SI/HI. She reports feeling anxious because of voices but also reports medication changes helped and feels better than when she came here. We discussed constipation- which she denies given combination of high dose cogentin with clozapine. She reports sleeping well. 11/08: Pt presents guarded; she reports feeling depressed . Pt reports auditory hallucinations at this time; pt stated, I'm still having suicidal thoughts. The voices tell me they want to kill me . Pt reports she does not want to harm herself. pt denies HI/VH. Waiting for Howell documents. 04/17: Pt stated I feel better than when I came in here. The voices are quieter . Pt presents with slight persistent tremor in both hands; pt reports I usually shake but cogentin and magnesium help ;discussed propanolol;risks/benefits reviewed. Pt started on propanolol 10mg PO TID. Pt denies SI/HI/VH. 11/10: Keeping to self. Guarded. Pt reports feeling anxious and depressed today; pt stated, the voices are telling me again that they can kill me. It was better yesterday . Pt denies SI/HI/VH. [facility]ell order documents were received. Last Invega Sustenna injection was on 11/05/23. Last Haldol decanoate injection was 10/29/23. Message out to patient's outpatient psychiatrist; waiting for call back. 11/11: Keeping to self. Guarded. Pt reports feeling depressed today; pt stated, I don't know why I feel this way . Pt denies SI/HI/VH/AH at this time. Patient to receive Haldol decanoate 100mg IM today; last IM was 10/29/23 per [facility]. Message out to patient's outpatient psychiatrist; waiting for call back. 11/13/2023: Continue current regimen and plans 11/14/2023: Continue current regimen and plans 11/14: keeping to self. guarded. pt reports feeling anxious and depressed today; pt stated, I don't know why I feel this way. The haldol helps with my anxiety and voices . Pt reports decreased auditory hallucinations; continues to hear them tell her they will kill her. pt denies HI/VH. Pt reports suicidal ideation to over dose on medication; pt stated, I don't know why I'm suicidal . 11/15: Patient reports feeling depressed today; she continues to report auditory hallucinations. Pt stated, the voices are telling me to kill myself by taking pills or throwing myself out of a window but I don't want to kill myself . Pt denies HI/VH. T/W spoke to patient's sister, Griselda, who reported patient's medication were messed up when she went to [facility] in August but she was fine before going to [facility] . Griselda to send home medication list 11/16: Patient reports feeling better than yesterday ; pt was not able to elaborate as to why she is feeling better. Pt stated, I'm still a little depressed ; pt denies SI/HI/VH/AH at this time. Continues to keep to self in room. encouraged to attend groups. 11/17: Staff reported pt was observed laying on bedroom floor. Pt reports feeling depressed today; pt stated, my voices told me to sleep on the floor and if not my heart would stop. I don't want to . Pt reports she feels she is getting better everyday . pt denies SI/HI/VH. Increase clozaril to 150mg PO daily. 11/18: continue current tx plan. 11/19 continue tx. decrease cogentin to 1mg po BID 11/20 continue tx. 11/21: Keeping to self. Pt continues to report feeling depressed today; pt stated, the voices have decreased but they are telling me they want to stop my heart . Pt reports she would like to go home soon. pt denies SI/HI/VH. continue current tx plan. 11/22:Pt continues to report feeling depressed today; pt stated, I feel like my depression is a little better because I have energy to do things . Pt continues to reports auditory hallucinations, pt stated, I'm worried the voices are going to kill me . pt denies SI/HI/VH. Pt reports she is going to try to not lay in bed all the time and go to some groups . Increase: Clozaril to 275mg PO bedtime 11/23: Pt reports feeling similar to yesterday ;continues to reports auditory hallucinations. Pt denies SI/HI/VH. Family meeting set up for 11/29/23 to discuss treatment. 11/24: Staff reported, pt attended multiple groups yesterday afternoon. Pt reports she continues to feel depressed but feels like it's getting better ; pt was unable to provide details as to how she feels her mood is improving. Pt stated decreased auditory hallucinations. pt denies SI/HI/VH. She reports she will continue to try to go to more groups . continue current tx plan. 11/25: Pt reports feeling good today; pt stated, I'm anxious but not depressed today. I don't know why . Pt continues to report auditory hallucinations but states they are decreasing. Pt denies SI/HI/VH. Pt to receive Haldol Decanoate IM today; pt aware. Five/for still with auditory hallucinations no changes in his medications.. 11/27 continue same treatment 11/28: Family meeting today with pt, patient's sister, Dr. Louis and renal social worker, Fili, present. Reviewed risks/benefits of ECT. discussed treatment plan. Patient and sister to consider ECT treatment. Will discuss case with neurology. Pt continues to report feeling anxious and auditory hallucinations. Encouraged to attend groups and not lay in bed. keeping to self. Pt denies SI/HI/VH. Pt is hoping to return to long term soon. continue current tx plan. 11/30: Pt reports feeling okay today; continues to keep to self and staying in room during the morning. Pt reports attending a group yesterday evening and plans on trying to go to more groups . Pt denies SI/HI/VH/AH today. Pt stated, I haven't had any voices yet today . continue current tx plan. 12/01: Pt reports feeling better today; Pt reports attending multiple groups yesterday. Pt stated, I'm starting to feel better and I'm trying to go to more groups . Pt denies SI/HI/VH/AH. Pt reports she is worried if I go home that the voices will come back ; if pt continues to improve in mood, will plan for discharge early next week. continue current tx plan. 12/02: Pt reports feeling good today; pt stated, I feel similar to yesterday. I have voices today but they are less and lower . Pt denies SI/HI/VH. Pt reports she feels ready to go home next week . continue current tx plan. 12/03: continue current tx plan. 12/04: Pt reports feeling good today; Pt stated, I'm not anxious or depressed today. I'm still feeling ready to go home . Pt continue to report auditory hallucinations but have lowered . denies SI/HI/VH. 12/05: Keeping to self. Pt reports feeling anxious today; Pt stated, I'm worried about going home because the voices are saying that if I leave then I will have to come back here . Pt continues to report auditory hallucinations but have lowered . denies SI/HI/VH. Pt to receive monthly Invega Sustenna 234mg IM today. 12/06 continue tx. dc. plan for tomorrow. Reason for continued inpatient stay Substantial Risk for: inability to function Time Spent With Patient Time: Total time managing care of this patient today ____ minutes.
[2023-12-07] MEDS: cloZAPine 100 MG TABLET 150 MG PO (14:47)
[2023-12-07 15:01] VITALS: BP 98/55; PULSE 114
[2023-12-07 15:30] VITALS: BP 99/55; PULSE 120; O2SAT 96
[2023-12-07 21:30] VITALS: BP 128/80; PULSE 129; RESP 16; TEMP 36.4; O2SAT 97
[2023-12-07] MEDS: Magnesium Oxide 400 MG TABLET PO (21:31)
[2023-12-07] MEDS: Propranolol HCL 10 MG TABLET PO (21:32)
[2023-12-08 07:37] VITALS: BP 88/54; PULSE 94; RESP 12; TEMP 36.1; O2SAT 96
[2023-12-08] MEDS: Thyroid,Pork 30 MG TABLET 60 MG PO (09:11)
[2023-12-08] MEDS: Benztropine Mesylate 1 MG TABLET PO (09:11)
[2023-12-08] MEDS: Folic Acid 1 MG TABLET PO (09:11)
[2023-12-08] MEDS: Omeprazole 20 MG CAPSULE.DR PO (09:11)
[2023-12-08] MEDS: Loratadine 10 MG TABLET PO (09:12)
[2023-12-08] MEDS: Docusate Sodium 100 MG CAPSULE PO (09:12)
[2023-12-08] MEDS: Multivitamin TABLET 1 TAB PO (09:12)
[2023-12-08 09:15] VITALS: BP 118/76; PULSE 101
[2023-12-08] MEDS: Propranolol HCL 10 MG TABLET PO (09:15)
--- NOTE | 2023-12-08 09:42 | PM.PSYDC ---
DS: Providers Provider Date of Service: 12/08/23 Date of admission: 11/06/23 18:41 Date of discharge: 12/08/23 Primary care physician: Unknown Physician Consults: 11/06/23 19:58 Consult to Hospitalist Routine Comment: Consulting Provider: Hospitalist Reason For Exam: OSH admission, H&P DS: Diagnosis Discharge Diagnosis (1) Schizoaffective disorder: Status: Acute DS: Medications Discharge Medications Home Medications: Previous Rx's ?Medication ?Instructions ?Recorded benztropine 1 mg tablet 1 mg PO BID #60 tabs 12/08/23 clonazepam 0.5 mg tablet 0.5 mg PO DAILY@1700 PRN anxiety 12/08/23 #30 tabs clozapine 100 mg tablet 150 mg (1.5 x 100 mg) PO 12/08/23 DAILY@1400 #20 tabs clozapine 200 mg tablet 200 mg PO BEDTIME #30 tabs 12/08/23 clozapine 25 mg tablet (Clozaril) 75 mg (3 x 25 mg) PO BEDTIME #90 12/08/23 tabs dimethyl fumarate 120 mg 240 mg (2 x 120 mg) PO BID #120 12/08/23 capsule,delayed release caps docusate sodium 100 mg capsule 100 mg PO BID #60 caps 12/08/23 folic acid 1 mg tablet 1 mg PO DAILY #30 tabs 12/08/23 haloperidol decanoate 100 mg/mL 100 mg IM Q4W #1 mL 12/08/23 intramuscular solution magnesium oxide 400 mg (241.3 mg 400 mg PO BEDTIME #30 tabs 12/08/23 magnesium) tablet multivitamin (Daily-Pratik tablet) 1 tab PO DAILY #30 tabs 12/08/23 omeprazole 20 mg capsule,delayed 20 mg PO DAILY #30 caps 12/08/23 release propranolol 10 mg tablet 10 mg PO BID #60 tabs 12/08/23 thyroid (pork) 30 mg tablet (AMBULATORY NURSE 60 mg (2 x 30 mg) PO DAILY #60 tabs 12/08/23 Thyroid) vitamins A and D-white 1 appl topical BID #15 grams 12/08/23 petrolatum-lanolin topical ointment Mental Status Exam Mental Status Exam Narrative: Pt is alert and oriented x 3; behavior is cooperative and calm. guarded; dressed in casual attire; mood is described as good, affect somewhat sedated; eye contact appropriate; Speech is normal rate, volume and prosody and not pressured; thought process is organized; Thought content is on tx; denies SI/HI/VH. Pt reports decreased auditory hallucinations. Data Data Completed and Pending Completed studies during hospitalization [Text1]: 12/05/23 07:36 Absolute Neuts (auto) 2.6 DS: Summary Hospital Course Hospital Course: 38-year-old female, history of schizoaffective disorder, direct admission from [facility], where patient had presented with worsening auditory hallucinations to hurt herself. Patient resident at [facility] for around 10 years. Reviewed medication administration record and clarified clozapine dose is 125 mg at 14:00, 250 mg at bedtime, Cogentin 2 mg 3 times per day, Klonopin 1 mg at 17:00, thyroid supplementation 60 mg daily, Colace 100 mg twice daily, magnesium 400 mg at 17:00, Claritin 10mg daily, iron 325 mg, Invega 234 mg sustained a monthly injection, given 11/05/2023 by visiting nurse services. Lab work unremarkable, CBC with ANC of 3 160 on 11/05/2023, tox, HCG unremarkable. Community [facility] order in place, with some information available in the chart, but details around actual medications appears to be missing. patient reports today hearing voices telling her to hurt herself. Upset by these. Hopeful medications can be reviewed and clarified. Also fear that she will get killed by people in the community i.e. paranoid. Reports sleep as being okay. Denies depression. Denies wanting to act on CAH. No HI. Reports being adherent with medications. Denies any recent stressors at [facility]. No substance use. Past Psychiatric History: Schizoaffective disorder. Recent discharge from [facility]. On clozapine for approximately 2-3 years. Community [facility] order. [facility] hospitalization-2021 lives at [facility]. Therapist: [facility] Reviewed: Hospitalist Raheel Pending HOSPITAL COURSE On the unit, pt was admitted on a CV and placed on 15 minutes checks for safety.Pt was admitted under the care of NADEEM Palumbo. This typewriters functional tester covered last days of admission, therefore, referred to her notes for further details. In brief, Pt presented with increased auditory hallucinations. She denied SI/HI or any plan or intent to harm herself. She was mostly in her room, minimally interactive with peers or staff but pleasant on approach. Clozaril level were obtained on 11/08 clozapine 647, norclozapine 261 with a ratio 2.47 (showing some degree of inhibition of its metabolism and pt may be more likely to get side effects anticholinergic ones). Clozaril dose was increase to 150mg po daily and 275mg po qhs. She came on cogentin 2mg po TID- which was decreased due to concern of anticholigergic overload in combination with clozaril to 1mg po BID. It appears she had been in addition clozaril, pt had also been on haldol dec 100mg qmonthly and invega sustenna 234mg IM qmonthly. She was continued on both. She received last Haldol dec 100mg on November 25 and is due for next injection on December 26. She received last Invega Sustenna 234mg IM on December 05 and due for next injection +/- 7 days or on January 05. Pt reported less AH/VH. Less delusions content noted. There were no incidences of disruptive behaviors nor need for restraints. Continue to monitor oversedation or daytime sedation. Also, continue to monitor constipation. Status at Discharge Cognitive/behavioral status at discharge: Pt with someone somnolent affect. No SI/HI. No VH/AH. Much less overt delusional content. No aggression towards self or others. Functional status at discharge: independent ambulation Overall status at discharge: patient is progressing back to baseline Time Spent with Patient Time attestation: Total time managing care of this patient today _35___ minutes. Time spent: Greater than 30 minutes Discharge Plan Discharge Anticipated Discharge Date/Time: 12/08/23 08:58 Patient Disposition: Home Health Service Discharge Diagnosis: schizoaffective disorder Referrals: Caroline Toribio (Therapy) [Other] - 12/09/23 10:00 am (TELEHEALTH) Caroline Toribio (Therapy) [Other] - 12/23/23 10:00 am (TELEHEALTH APPOINTMENT) Dr. Soy Pandya (Psychiatry) [Other] - 01/14/24 9:00 am (IN OFFICE APPOINTMENT) Jacquelyn Landers PA [Physician Proced Tech] - 12/24/23 3:00 am (Follow-up appt. with FREDY Peterson [facility] [id number] confirmed for 12/23 @ 3PM) Discharge Medications: New clozapine 100 mg Tablet 150 mg PO DAILY@1400 Qty: 20 0RF clozapine 200 mg tablet 200 mg PO BEDTIME Qty: 30 0RF clonazepam 0.5 mg Tablet 0.5 mg PO DAILY@1700 PRN (Reason: anxiety) Qty: 30 0RF propranolol 10 mg Tablet 10 mg PO BID Qty: 60 0RF Protocol: Hold for SBP/HR < HOLD for SBP < : 90 HOLD for HR < : 60 magnesium oxide 400 mg (241.3 mg magnesium) Tablet 400 mg PO BEDTIME Qty: 30 0RF benztropine 1 mg Tablet 1 mg PO BID Qty: 60 0RF docusate sodium 100 mg Capsule 100 mg PO BID Qty: 60 0RF omeprazole 20 mg Capsule,Delayed Release(Dr/Ec) 20 mg PO DAILY Qty: 30 0RF folic acid 1 mg Tablet 1 mg PO DAILY Qty: 30 0RF thyroid (pork) [AMBULATORY NURSE Thyroid] 30 mg Tablet 60 mg PO DAILY Qty: 60 0RF dimethyl fumarate 120 mg Capsule,Delayed Release(Dr/Ec) 240 mg PO BID Qty: 120 0RF vits A and D-white pet-lanolin Ointment 1 appl topical BID Qty: 15 0RF multivitamin [Daily-Pratik] Tablet 1 tab PO DAILY Qty: 30 0RF haloperidol decanoate 100 mg/mL solution 100 mg IM Q4W Qty: 1 0RF clozapine [Clozaril] 25 mg tablet 75 mg PO BEDTIME Qty: 90 0RF Discontinued clozapine 200 mg tablet 200 mg PO BEDTIME clozapine 100 mg tablet 100 mg PO DAILY clozapine 25 mg tablet 25 mg PO DAILY clonazepam 1 mg tablet 1 mg PO BID PRN (Reason: Anxiety) benztropine 2 mg tablet 2 mg PO TID folic acid 1 mg tablet 1 mg PO DAILY haloperidol lactate 2 mg/mL concentrate 10 mg PO BID PRN (Reason: Agitation) thyroid (pork) [Carlock Thyroid] 15 mg tablet 15 mg PO DAILY thyroid (pork) [AMBULATORY NURSE Thyroid] 30 mg tablet 30 mg PO DAILY ferrous sulfate 325 mg (65 mg iron) tablet 325 mg PO DAILY dimethyl fumarate 120 mg Capsule,Delayed Release(Dr/Ec) 120 mg PO BID Rx Instructions: For 2 weeks dimethyl fumarate 240 mg Capsule,Delayed Release(Dr/Ec) 240 mg PO BID Rx Instructions: Take for 2 weeks after completing 2 weeks of 120 mg BID magnesium oxide 400 mg PO DAILY haloperidol decanoate 100 mg/mL solution 100 mg IM Q2W haloperidol decanoate 100 mg/mL solution 100 mg IM Q2W Patient Comments: patient was due for injection 10/16/23-not administered as patient was at [facility]-per [facility] pantoprazole 40 mg tablet,delayed release (DR/EC) 40 mg PO DAILY Patient Comments: per [facility] docusate sodium 100 mg capsule 100 mg PO BID Patient Comments: given at [facility] prior to [facility] admission thyroid (pork) [AMBULATORY NURSE Thyroid] 60 mg tablet 60 mg PO DAILY Patient Comments: per [facility] multivitamin with folic acid [Daily-Pratik (with folic acid)] 400 mcg tablet 1 tab PO DAILY ibuprofen 600 mg tablet 600 mg PO Q6H PRN (Reason: pain) Patient Comments: on SEP at [facility]. uknown when last taken Invega Sustenna 234 mg/1.5 mL syringe 234 mg IM Q4W Patient Comments: due monthly. [facility] unable to verify when last dose taken. patient reports she receives 2 weeks after haldol dec. injection albuterol sulfate 90 mcg/actuation HFA aerosol inhaler 2 puff inhalation Q4H PRN (Reason: wheezing) Patient Comments: [facility] reports that patient does not use often loratadine 10 mg tablet 10 mg PO DAILY Patient Comments: given in [facility] ER prior to [facility] admission Discharge Orders: Discharge Order (Routine); Ordered 12/08/23 Ordered By: Kristin Tijerina Diet: Regular diet Activity on Discharge: As tolerated Stand Alone Forms: Patient Portal Discharge page, Community Support Print Language: Serbian Care Plan Goals: 1. No SI/HI 2. No overt delusional content noted or reported 3. less VH/AH 4. less delusions Health Concerns: follow up with PCP Plan of Treatment: 1. take medications as prescribed 2. Go to nearest ED or call 911 in event of emergency Assessment: pt with constricted, somewhat somnolent affect. No SI/HI. Pt reports less VH/AH. less delusional content. monitor constipation, over sedation. No aggression towards self or others.
== END 2023-12-08 11:35 | disposition home health service (06) | DRG 885 ==
PROVIDERS: Psychiatry & Neurology Psychiatry; Social Worker; Admitting Provider Psychiatry & Neurology Psychiatry; Responsible Provider Registered Nurse; Visit Provider Psychiatry & Neurology Psychiatry
DX: F25.9 Schizoaffective disorder, unspecified (principal); R45.851 Suicidal ideations; G35 Multiple sclerosis; J45.20 Mild intermittent asthma, uncomplicated; Z20.822 Contact with and (suspected) exposure to COVID-19; Z91.148 Patient's other noncompliance with medication regimen for other reason; Z79.899 Other long term (current) drug therapy
CPT/HCPCS: 0241U; 36415; 80048; 80053; 80061; 80076; 80159; 82140; 85025; 85048; 87635; J1631; J2426

== ENCOUNTER → 2023-11-06 18:41 | Outpatient (BNV) | payer MEDICARE, MEDICAID, SELFPAY | PROVIDERS: Admitting Provider Psychiatry & Neurology Psychiatry; Responsible Provider Registered Nurse; Visit Provider Psychiatry & Neurology Psychiatry | DX: F25.0 Schizoaffective disorder, bipolar type (principal) | CPT/HCPCS: 99231 ==

== ENCOUNTER → 2023-11-06 18:41 | Outpatient (BNV) | payer MEDICARE, MEDICAID, SELFPAY | PROVIDERS: Admitting Provider Psychiatry & Neurology Psychiatry; Visit Provider Student in an Organized Health Care Education/Training Program | DX: Z02.2 Encounter for examination for admission to residential institution (principal) | CPT/HCPCS: 99429 ==

== ENCOUNTER → 2023-11-06 18:41 | Outpatient (BNV) | payer MEDICARE, MEDICAID, SELFPAY | PROVIDERS: Admitting Provider Psychiatry & Neurology Psychiatry; Visit Provider Psychiatry & Neurology Psychiatry | DX: F25.0 Schizoaffective disorder, bipolar type (principal) | CPT/HCPCS: 90792; 99231; 99232; 99239 ==

== ENCOUNTER 2023-12-17 14:26 | Inpatient (IN) | payer MEDICARE, MEDICAID, SELFPAY ==
[2023-12-17 14:45] VITALS: BP 119/81; PULSE 72; RESP 16; TEMP 36.7; O2SAT 98; BMI 31.6
--- NOTE | 2023-12-17 18:38 | PM.EVENT ---
Documented by User: Mavis Michaud APRN 12/17/23 18:39 Event Note Date of Service: 12/17/23 Event Note: GuardianAlanna called to update team on current medication list which was ordered. Time Spent With Patient Time: Total time managing care of this patient today ____ minutes. Documented by User: Jaquan Louis MD 12/29/23 11:59 Event Note Date of Service: 12/29/23
--- NOTE | 2023-12-17 18:52 | P.CONHOSP_ITS ---
History of Present Illness Data of Consult Service Date: 12/17/23 Primary Care Provider: Unknown Physician HPI Reason for consult: Admission H&P Pt is a 38-year-old female with a PMH significant for?MS, mild persistent asthma, HLD, GERD, schizophrenia, and bipolar disorder who is admitted to psychiatry. Medical consult for admission H&P. ?Patient declines full interview and exam, but does note that she does not have any acute medical complaints at this time. States she has been started prescription for MS which she reports taking daily. Review of Systems 2 Review of Systems: Denies any acute medical complaints, though declines full [facility] Medical History Mild persistent asthma Multiple sclerosis HLD (hyperlipidemia) Social History Household Members: Other Household Members Other:: Lives in detention with 4 other residents Housing: Other Housing Other:: detention Do you presently have visiting nurse or other home services: Yes Patient Tobacco Use Status: Never used Tobacco Smoked in Last 30 Days: No e-Cigarette/Vaping Use: Never Used Patient Interested in Nicotine Replacement: No (n/a) Patient Given Instructions on How to Stop Smoking: No (n/a) Second Hand Smoke Exposure: No Use of substances other than those prescribed or required for medical reasons: No Currently Displaying Signs/Symptoms of Drug Intoxication Withdrawal: No Have you been hit, kicked, punched, or otherwise hurt by someone within the past year? If so, by whom?: No Do you feel safe in your current relationship?: No Is there a partner from a previous relationship who is making you feel unsafe now?: No Are you made to feel afraid or neglected: No Advance Directives: No Do you have thoughts of harming others: None Do you have a plan to hurt others: No Plan Recently lost weight without trying: No Eating poorly because of decreased appetite: No Nutrition Risks: No Nutritional Risk Patient : No : No Poor oral hygiene: No service: No Sexual orientation: Don't Know Meds Allergies Allergy/AdvReac Type Severity Reaction Status Date / Time Pork/Porcine Containing Allergy Unknown RASH Verified 11/07/23 13:03 Products [PORK/PORCINE CONTAINING PRODUCTS] citalopram Allergy Unknown Verified 10/17/23 02:24 trazodone Allergy Unknown Verified 10/17/23 02:24 ALPHA LIPOIC ACID Allergy Unknown Uncoded 10/17/23 02:24 KEG RAISER-3 THYROID TOXICITY Allergy Unknown Uncoded 10/17/23 02:24 Active Medications: Current Medications Acetaminophen (Acetaminophen 325 Mg Tablet) 650 mg PO Q6H PRN PRN Reason: Headache/Pain Mild Scale (1-3) Al Hydroxide/Mg Hydroxide (Magnesium Hydrox/Alum Hydrox 30 Ml Oral.Susp) 30 ml PO Q6H PRN PRN Reason: Heartburn/Nausea Benztropine Mesylate (Benztropine Mesylate 1 Mg Tablet) 1 mg PO BID [facility] Clonazepam (Clonazepam 0.5 Mg Tablet) 0.5 mg PO BID PRN PRN Reason: Anxiety Clozapine 100 mg/ Clozapine 25 (mg) 125 mg PO 1400 [facility] Clozapine 200 mg/ Clozapine 75 (mg) 275 mg PO BEDTIME [facility] Docusate Sodium (Docusate Sodium 100 Mg Capsule) 100 mg PO BID [facility] Folic Acid (Folic Acid 1 Mg Tablet) 1 mg PO DAILY [facility] Haloperidol Decanoate (Haloperidol Decanoate 50 Mg/Ml Vial) 100 mg IM Q14D [facility] Hydroxyzine HCl (Hydroxyzine Hcl 25 Mg Tablet) 25 mg PO Q6H PRN PRN Reason: Anxiety Magnesium Hydroxide (Milk Of Magnesia 30 Ml Oral.Susp) 30 ml PO DAILY PRN PRN Reason: Constipation Magnesium Oxide (Magnesium Oxide 400 Mg Tablet) 400 mg PO BEDTIME [facility] Multivitamins/Vitamin C (Multivitamin Tablet) 1 tab PO DAILY [facility] Non-Formulary Medication (Dimethyl Fumarate) 240 mg PO BID [facility] Omeprazole (Omeprazole 20 Mg Capsule.Dr) 20 mg PO DAILY@0630 [facility] Paliperidone Palmitate (Paliperidone Palmitate 234 Mg/1.5 Ml Syringe) 234 mg IM Q30D [facility] Propranolol HCl (Propranolol Hcl 10 Mg Tablet) 10 mg PO BID [facility]; Protocol Thyroid (Thyroid,Pork 30 Mg Tablet) 60 mg PO DAILY@0630 [facility] Vitamin A/Vitamin D (A And D Ointment 56.7 Gm Tube) 1 appl TOPICAL BID [facility]; Protocol Home Medications ?Medication ?Instructions ?Recorded ?Confirmed ?Last Taken ?Type clozapine 100 mg tablet 125 mg PO DAILY@1400 12/17/23 12/17/23 12/16/23 09:45 History 125 mg clozapine 200 mg tablet 275 mg PO BEDTIME 12/17/23 12/17/23 12/15/23 20:44 History 275 dimethyl fumarate 240 mg 240 mg PO BID 12/17/23 12/17/23 Unknown History capsule,delayed release (Tecfidera) Physical Exam Vital Signs and Narrative: Vital Signs: Last Vital Signs Temp 98.1 F 12/17/23 14:45 Pulse 72 12/17/23 14:45 Resp 16 12/17/23 14:45 BP 119/81 12/17/23 14:45 Pulse Ox 98 12/17/23 14:45 O2 Del Method Room Air 12/17/23 14:45 BMI result Body Mass Index 31.6 Patient declines physical exam Assessment and Plan (1) Medical clearance for psychiatric admission: Status: Acute Plan Pt is a 38-year-old female with a PMH significant for?MS, mild persistent asthma, HLD, GERD, schizophrenia, and bipolar disorder who is admitted to psychiatry. Medical consult for admission H&P. Mood disorder Plan as per Psychiatry Multiple sclerosis Recently diagnosed in August, follows with Dr. Doran Continue dimethyl fumarate Follow-up outpatient with Neurology Moderate persistent asthma Does not appear to be in acute exacerbation Continue home inhalers GERD Continue PPI Thank you for allowing us to participate in the care of this patient. Signing off at this time. Please re-consult if any acute complaints or issues arise.
[2023-12-17 19:28] LABS: Neut%MD 59.6 %; WBCANC 6.6 X10*3/uL
--- NOTE | 2023-12-17 19:39 | PC.ADMIT ---
This is one of multiple admissions for this 38 y.o. female to one of [facility] behavioral health units. Last discharged 12/08/23 from M3 unit. Presented to [facility] ED 12/08/23 reporting AH and SI. Admitted to [facility] and discharged 12/16/23. Presented to [facility] ED 12/16/23 via ambulance with concerns of AH, SI. Referred to this unit today by [facility] with Dx of Unspecified Schizophrenia Spectrum and other Psychotic D/O. Nurse to nurse done with Renuka at [facility] ED prior to admission. Arrived on unit at 1430 and placed on 15 min safety checks. Admission orders received from Caity Lagunas APRN. Meds verified with [facility] pharmacy. Last dosages of Clozaril, Invega Sustenna, Haldol Dec verified with Janki Contreras and sister, Griselda. Sister, Griselda, is pt's HCP and guardian-notified of admission. Rates depression and anxiety #4 on scale 1-10(10 worse). Reports passive fleeting SI, none currently. Reports AH which tell her to go left, go right, go straight. States AH present an image in her head to harm herself. States she is sleeping well and appetite is good. Sect 12A on admission, conditional voluntary signed after meeting with prescriber, Caity Michaud APRN. Sister spoke with prescriber this shift. Visible in milieu, isolative to self. Speaking to sister on phone when hospitalist on unit for consult. Did not want to leave phone for consult. Pt resides in alf when not hospitalized.
[2023-12-17 20:00] VITALS: BP 124/76; PULSE 127; RESP 20; TEMP 36.7; O2SAT 98
--- NOTE | 2023-12-17 21:24 | HE.PHANOTE ---
RE: CLOZAPINE LAST DOSE Spoke to nurse Baylee Choudhury about patient's last doses of clozapine. She said pt was discharged from us on 12/08/23 then admitted to [facility] until she was discharged from there yesterday 12/16/23 and now she's admitted back to us today 12/17/23. Nurse said she spoke to [facility] and was able to get last dose info (12/15/23 275 mg at bedtime and 12/16/23 125 mg at 0945). I tried to call [facility] Y[facility]'s Intake department multiple times ([phone] but was unable to speak to someone to confirm last dose.
[2023-12-17] MEDS: A and D Ointment 56.7 GM TUBE 1 APPL TOPICAL (22:16)
[2023-12-17] MEDS: Propranolol HCL 10 MG TABLET PO (22:18)
[2023-12-17] MEDS: Docusate Sodium 100 MG CAPSULE PO (22:18)
[2023-12-17] MEDS: Magnesium Oxide 400 MG TABLET PO (22:18)
[2023-12-17] MEDS: Benztropine Mesylate 1 MG TABLET PO (22:19)
[2023-12-18] MEDS: Thyroid,Pork 30 MG TABLET 60 MG PO (07:21)
--- NOTE | 2023-12-18 07:57 | HO.PSYCHPN ---
Subjective Subjective Reason For Visit: SCHIZOPHRENIA, SI Diagnostics Vital Signs (24Hr): Vital Signs - 24 hr 12/17/23 14:45 12/17/23 20:00 Temperature 98.1 F 98.0 F Pulse Rate 72 127 H Respiratory Rate 16 20 Blood Pressure 119/81 124/76 Pulse Oximetry 98 98 Oxygen Delivery Method Room Air Room Air BMI result Body Mass Index 31.6 Labs Labs: Laboratory Results - last 48 hr 12/17/23 19:21 Absolute Neuts (auto) 4.0 Medications Medications Current Medications Acetaminophen (Acetaminophen 325 Mg Tablet) 650 mg PO Q6H PRN PRN Reason: Headache/Pain Mild Scale (1-3) Al Hydroxide/Mg Hydroxide (Magnesium Hydrox/Alum Hydrox 30 Ml Oral.Susp) 30 ml PO Q6H PRN PRN Reason: Heartburn/Nausea Benztropine Mesylate (Benztropine Mesylate 1 Mg Tablet) 1 mg PO BID [facility] Last Admin: 12/17/23 22:19 Dose: 1 mg Clonazepam (Clonazepam 0.5 Mg Tablet) 0.5 mg PO BID PRN PRN Reason: Anxiety Clozapine 100 mg/ Clozapine 25 (mg) 125 mg PO 1400 [facility] Clozapine 200 mg/ Clozapine 75 (mg) 275 mg PO BEDTIME [facility] Last Admin: 12/17/23 22:18 Dose: 275 mg Docusate Sodium (Docusate Sodium 100 Mg Capsule) 100 mg PO BID [facility] Last Admin: 12/17/23 22:18 Dose: 100 mg Folic Acid (Folic Acid 1 Mg Tablet) 1 mg PO DAILY [facility] Haloperidol Decanoate (Haloperidol Decanoate 50 Mg/Ml Vial) 100 mg IM Q14D [facility] Hydroxyzine HCl (Hydroxyzine Hcl 25 Mg Tablet) 25 mg PO Q6H PRN PRN Reason: Anxiety Magnesium Hydroxide (Milk Of Magnesia 30 Ml Oral.Susp) 30 ml PO DAILY PRN PRN Reason: Constipation Magnesium Oxide (Magnesium Oxide 400 Mg Tablet) 400 mg PO BEDTIME [facility] Last Admin: 12/17/23 22:18 Dose: 400 mg Multivitamins/Vitamin C (Multivitamin Tablet) 1 tab PO DAILY [facility] Patient Own ( (Tecfidera Dr 240 Mg)) 240 mg PO BID [facility] Last Admin: 12/17/23 22:17 Dose: 240 mg Omeprazole (Omeprazole 20 Mg Capsule.Dr) 20 mg PO DAILY@0630 [facility] Paliperidone Palmitate (Paliperidone Palmitate 234 Mg/1.5 Ml Syringe) 234 mg IM Q30D [facility] Propranolol HCl (Propranolol Hcl 10 Mg Tablet) 10 mg PO BID [facility]; Protocol Last Admin: 12/17/23 22:18 Dose: 10 mg Thyroid (Thyroid,Pork 30 Mg Tablet) 60 mg PO DAILY@0600 [facility] Last Admin: 12/18/23 07:21 Dose: 60 mg Vitamin A/Vitamin D (A And D Ointment 56.7 Gm Tube) 1 appl TOPICAL BID [facility]; Protocol Last Admin: 12/17/23 22:16 Dose: 1 appl Allergies Allergies Allergy/AdvReac Type Severity Reaction Status Date / Time Pork/Porcine Containing Allergy Unknown RASH Verified 11/07/23 13:03 Products [PORK/PORCINE CONTAINING PRODUCTS] citalopram Allergy Unknown Verified 10/17/23 02:24 trazodone Allergy Unknown Verified 10/17/23 02:24 ALPHA LIPOIC ACID Allergy Unknown Uncoded 10/17/23 02:24 TRAUMA MANAGER-3 THYROID TOXICITY Allergy Unknown Uncoded 10/17/23 02:24 Assessment & Plan Time Spent With Patient Time: Total time managing care of this patient today ____ minutes.
[2023-12-18 08:07] LABS: Estimated Average Glucose 105 mg/dL; Hemoglobin A1c % 5.3 % (<6.0)
[2023-12-18 08:19] LABS: Cholesterol 173 mg/dL (<200); HDL Cholesterol 36 mg/dL (>40); LDL Cholesterol Calculated 115 mg/dL (<100); Magnesium 1.9 mg/dL (1.6-2.6); Triglycerides 110 mg/dL (<150)
[2023-12-18 08:34] LABS: Free T4 (Free Thyroxine) 1.05 ng/dL (0.71-1.85); Thyroid Stimulating Hormone 1.47 uIU/mL (0.32-4.0)
[2023-12-18 08:46] LABS: Folate 14.2 ng/mL (> or = 4.0); Vitamin B12 478 pg/mL (200-900)
[2023-12-18 09:25] VITALS: BP 96/58; PULSE 88; RESP 20; TEMP 37.1; O2SAT 99
[2023-12-18 09:30] VITALS: BP 91/62; PULSE 83
[2023-12-18] MEDS: Propranolol HCL 10 MG TABLET PO ×2 (09:30→20:29)
[2023-12-18] MEDS: Folic Acid 1 MG TABLET PO (09:59)
[2023-12-18] MEDS: Multivitamin TABLET 1 TAB PO (09:59)
[2023-12-18] MEDS: Omeprazole 20 MG CAPSULE.DR PO (09:59)
[2023-12-18] MEDS: Benztropine Mesylate 1 MG TABLET PO ×2 (10:00→20:19)
[2023-12-18] MEDS: Docusate Sodium 100 MG CAPSULE PO ×2 (10:00→20:20)
[2023-12-18] MEDS: A and D Ointment 56.7 GM TUBE 1 APPL TOPICAL (10:05)
--- NOTE | 2023-12-18 11:30 | HO.PSYADMNOT ---
HPI Date of Service: 12/18/23 Chief Complaint: SCHIZOPHRENIA, SI Sources of Information: patient interviewed, chart reviewed and crisis/core team assessment reviewed Additional Sources of Information: sister and guardian Alanna Naqvi HPI Subjective Notes: [place] Warning and Conditional Voluntary Healthcare Proxy: Yes Guardianship: Yes Medical Problems Affecting Mental Status: No Narrative: 38-year-old female, history of schizoaffective disorder, direct admission from [facility], where patient had presented with worsening auditory hallucinations and SI. Patient is resident at [facility] for around 10 years. Patient was recently discharged from [facility] where she was admitted on 12/07. She has had several recent admissions to [facility] she was admitted to [facility] inpatient on 10/17/2023 and then again on 11/07/2023. Pt has a [facility] and [facility] order in place, with some information available in the chart, but details around actual medications appears to be missing. Patient states that she received her Haldol Decanoate injection 6 days ago while in [facility]. patient reports today hearing voices telling her to go right to go left. Pt stares blankly at times; appears to be internally preoccupied. She is difficult to engage in interview; she appears anxious. denies SI or HI This scientific writer spoke to Griselda NAQVI, patient's guardian: Her concerns are to try to help Anjali get back to baseline she had 2 years stability while at the nursing home. She reports that there have been problems with medication, getting the correct medication on time due to a number of factors difficulty with the rims certification, difficulty with the [facility]NA not having the correct equipment when her injection was done was due, and after different hospitalizations medication list at discharge was not complete and the residential home was unable to correct her medication list. Griselda wonders if her sister could be placed in a long-term care nursing facility for more consistent care. Past Psychiatric History: Schizoaffective disorder. Recent discharge from [facility]. On clozapine for approximately 2-3 years. [facility] order. [facility] hospitalization-2021 lives at [facility]. Therapist: [facility] Reviewed: Yes [facility] Medical History Mild persistent asthma Multiple sclerosis HLD (hyperlipidemia) Family History: sister is guardian Alanna Naqvi Social History: lives in residential nursing home through [facility]), single, sister, Griselda is legal guardian. Single. No legal issues. No substance issues. As a child aged 16. Substance History: none Trauma History: denies Diagnostics Vital Signs (24Hr): Vital Signs - 24 hr 12/17/23 14:45 12/17/23 20:00 12/18/23 09:25 Temperature 98.1 F 98.0 F 98.8 F Pulse Rate 72 127 H 88 Respiratory Rate 16 20 20 Blood Pressure 119/81 124/76 96/58 L Pulse Oximetry 98 98 99 Oxygen Delivery Method Room Air Room Air Room Air 12/18/23 09:30 Temperature Pulse Rate 83 Respiratory Rate Blood Pressure 91/62 Pulse Oximetry Oxygen Delivery Method BMI result Body Mass Index 31.6 Labs Labs: Laboratory Results - last 48 hr 12/17/23 12/18/23 19:21 07:34 Absolute Neuts (auto) 4.0 Estimat Average Glucose 105 Hemoglobin A1c % 5.3 Magnesium 1.9 Triglycerides 110 Cholesterol 173 LDL Cholesterol, Calc 115 H HDL Cholesterol 36 L Vitamin B12 478 Folate 14.2 TSH 1.47 Free T4 1.05 Meds/Allergies Meds Home Medications ?Medication ?Instructions ?Recorded ?Confirmed ?Type clozapine 100 mg tablet 125 mg PO DAILY@1400 12/17/23 12/17/23 History clozapine 200 mg tablet 275 mg PO BEDTIME 12/17/23 12/17/23 History dimethyl fumarate 240 mg 240 mg PO BID 12/17/23 12/17/23 History capsule,delayed release (Tecfidera) Allergies Allergies Allergy/AdvReac Type Severity Reaction Status Date / Time Pork/Porcine Containing Allergy Unknown RASH Verified 11/07/23 13:03 Products [PORK/PORCINE CONTAINING PRODUCTS] citalopram Allergy Unknown Verified 10/17/23 02:24 trazodone Allergy Unknown Verified 10/17/23 02:24 ALPHA LIPOIC ACID Allergy Unknown Uncoded 10/17/23 02:24 PRESS MACHINE FEEDER-3 THYROID TOXICITY Allergy Unknown Uncoded 10/17/23 02:24 Mental Status Exam Mental Status Exam Patient Appearance: Disheveled Patient Orientation: Situation Level of Consciousness: Awake and Alert Patient Behavior: Distractible Mood Description: Anxious Affect Description: Anxious Ability to Follow Directions: Fair Speech Pattern: Long Pauses Hallucinations: Auditory Thought Process: Incoherent and Slowed Thinking Thought Content: positive for Slowed Thinking Judgement: Fair Assessment & Plan Assessment & Plan (1) Schizoaffective disorder: Status: Acute Qualifiers: Schizoaffective disorder type: depressive Qualified Code(s): F25.1 - Schizoaffective disorder, depressive type Code(s): F25.9 - Schizoaffective disorder, unspecified Plan admit to [facility] on Cv collect collateral from [facility], nursing home and [facility]NA verify dose of haldol deconoate involve guardian in treatemtn discharge planning with team Patient educated on: diagnosis and medication risk/benefits Informed Consent: does not understand and further education needed Reason for continued inpatient stay Substantial Risk for: harm to self and inability to function Statement Statement: I have reviewed the history and physical and performed a pertinent examination on my patient. No changes have occurred unless specified. If the History and Physical was not performed prior to admission, the Hospitalist's service will be consulted for completing the admission physical. Time Spent With Patient Time: Total time managing care of this patient today __60__ minutes.
[2023-12-18] MEDS: cloZAPine 100 MG, cloZAPine 25 MG 125 MG PO (15:21)
[2023-12-18 20:00] VITALS: BP 134/77; PULSE 94; RESP 18; TEMP 36.2; O2SAT 100
[2023-12-18] MEDS: Magnesium Oxide 400 MG TABLET PO (20:19)
[2023-12-18 20:29] VITALS: BP 110/70; PULSE 104
[2023-12-19] MEDS: Thyroid,Pork 30 MG TABLET 60 MG PO (06:19)
[2023-12-19] MEDS: Omeprazole 20 MG CAPSULE.DR PO (06:19)
[2023-12-19 08:00] VITALS: BP 84/54; PULSE 87; RESP 20; TEMP 36.4; O2SAT 98
[2023-12-19 08:49] VITALS: BP 92/57; PULSE 89; O2SAT 98
[2023-12-19] MEDS: Multivitamin TABLET 1 TAB PO (08:56)
[2023-12-19] MEDS: Docusate Sodium 100 MG CAPSULE PO ×2 (08:56→20:33)
[2023-12-19] MEDS: Benztropine Mesylate 1 MG TABLET PO ×2 (08:56→20:32)
[2023-12-19] MEDS: Folic Acid 1 MG TABLET PO (08:56)
[2023-12-19] MEDS: A and D Ointment 56.7 GM TUBE 1 APPL TOPICAL ×2 (08:57→22:27)
[2023-12-19 09:15] VITALS: BP 92/57; PULSE 89
[2023-12-19] MEDS: Propranolol HCL 10 MG TABLET PO ×2 (09:15→20:33)
--- NOTE | 2023-12-19 10:20 | P.PNPSI_ITS ---
Subjective Subjective Date of Service: 12/19/23 Reason For Visit: SCHIZOPHRENIA, SI Interim History: 38-year-old female, history of schizoaffective disorder, admitted yesterday from [facility], where patient had presented with worsening auditory hallucinations and SI. Patient is resident at [facility] for around 10 years. Patient was recently discharged from [facility] where she was admitted on 12/07. She has had several recent admissions to [facility] she was admitted to [facility] inpatient on 10/17/2023 and then again on 11/07/2023. Pt has a [facility] and [facility] order in place, with some information available in the chart, but details around actual medications appears to be missing. Patient states that she received her Haldol Decanoate injection 6 days ago while in [facility] which has not been verified. Pt is sleepy, in bed patient reports today hearing voices telling her to go right to go left. Pt stares blankly at times; appears to be internally preoccupied. She is difficult to engage in interview; she showered. slept well , she appears anxious. denies SI or HI Medication Compliance: Yes Side effects from medications: No Attending Groups: No Review of Systems Acute medical concerns: No Medical Review of Systems: unchanged Review of Systems Review of Systems Denies any acute medical complaints, though declines full ROS Mental Status Exam Mental Status Exam Patient Appearance: Appropriate Patient Orientation: Situation Level of Consciousness: Drowsy and Alert Patient Behavior: Appropriate and Distractible Mood Description: Calm and Anxious Affect Description: Withdrawn Ability to Follow Directions: Fair Speech Pattern: Long Pauses Hallucinations: Auditory Thought Process: Distracted Thought Content: positive for [place] Judgement: Fair Diagnostics Vital Signs (24Hr): Vital Signs - 24 hr 12/18/23 20:00 12/18/23 20:29 12/19/23 08:00 Temperature 97.2 F 97.6 F Pulse Rate 94 104 H 87 Respiratory Rate 18 20 Blood Pressure 134/77 110/70 84/54 L Pulse Oximetry 100 98 Oxygen Delivery Method Room Air Room Air 12/19/23 08:49 12/19/23 09:15 Temperature Pulse Rate 89 89 Respiratory Rate Blood Pressure 92/57 L 92/57 L Pulse Oximetry 98 Oxygen Delivery Method Room Air BMI result Body Mass Index 31.6 Labs Labs: Laboratory Results - last 48 hr 12/17/23 12/18/23 19:21 07:34 Absolute Neuts (auto) 4.0 Estimat Average Glucose 105 Hemoglobin A1c % 5.3 Magnesium 1.9 Triglycerides 110 Cholesterol 173 LDL Cholesterol, Calc 115 H HDL Cholesterol 36 L Vitamin B12 478 Folate 14.2 TSH 1.47 Free T4 1.05 Medications Medications Current Medications Acetaminophen (Acetaminophen 325 Mg Tablet) 650 mg PO Q6H PRN PRN Reason: Headache/Pain Mild Scale (1-3) Al Hydroxide/Mg Hydroxide (Magnesium Hydrox/Alum Hydrox 30 Ml Oral.Susp) 30 ml PO Q6H PRN PRN Reason: Heartburn/Nausea Benztropine Mesylate (Benztropine Mesylate 1 Mg Tablet) 1 mg PO BID [facility] Last Admin: 12/19/23 08:56 Dose: 1 mg Clonazepam (Clonazepam 0.5 Mg Tablet) 0.5 mg PO BID PRN PRN Reason: Anxiety Clozapine 100 mg/ Clozapine 25 (mg) 125 mg PO 1400 [facility] Last Admin: 12/18/23 15:21 Dose: 125 mg Clozapine 200 mg/ Clozapine 75 (mg) 275 mg PO BEDTIME [facility] Last Admin: 12/18/23 20:18 Dose: 275 mg Docusate Sodium (Docusate Sodium 100 Mg Capsule) 100 mg PO BID [facility] Last Admin: 12/19/23 08:56 Dose: 100 mg Folic Acid (Folic Acid 1 Mg Tablet) 1 mg PO DAILY [facility] Last Admin: 12/19/23 08:56 Dose: 1 mg Haloperidol Decanoate (Haloperidol Decanoate 50 Mg/Ml Vial) 100 mg IM Q14D [facility] Last Admin: 12/18/23 10:39 Dose: Not Given Hydroxyzine HCl (Hydroxyzine Hcl 25 Mg Tablet) 25 mg PO Q6H PRN PRN Reason: Anxiety Magnesium Hydroxide (Milk Of Magnesia 30 Ml Oral.Susp) 30 ml PO DAILY PRN PRN Reason: Constipation Magnesium Oxide (Magnesium Oxide 400 Mg Tablet) 400 mg PO BEDTIME [facility] Last Admin: 12/18/23 20:19 Dose: 400 mg Multivitamins/Vitamin C (Multivitamin Tablet) 1 tab PO DAILY [facility] Last Admin: 12/19/23 08:56 Dose: 1 tab Patient Own ( (Tecfidera Dr 240 Mg)) 240 mg PO BID [facility] Last Admin: 12/19/23 08:57 Dose: 240 mg Omeprazole (Omeprazole 20 Mg Capsule.Dr) 20 mg PO DAILY@0630 [facility] Last Admin: 12/19/23 06:19 Dose: 20 mg Paliperidone Palmitate (Paliperidone Palmitate 234 Mg/1.5 Ml Syringe) 234 mg IM Q30D [facility] Propranolol HCl (Propranolol Hcl 10 Mg Tablet) 10 mg PO BID [facility]; Protocol Last Admin: 12/19/23 09:15 Dose: 10 mg Thyroid (Thyroid,Pork 30 Mg Tablet) 60 mg PO DAILY@0600 [facility] Last Admin: 12/19/23 06:19 Dose: 60 mg Vitamin A/Vitamin D (A And D Ointment 56.7 Gm Tube) 1 appl TOPICAL BID [facility]; Protocol Last Admin: 12/19/23 08:57 Dose: 1 appl Allergies Allergies Allergy/AdvReac Type Severity Reaction Status Date / Time Pork/Porcine Containing Allergy Unknown RASH Verified 11/07/23 13:03 Products [PORK/PORCINE CONTAINING PRODUCTS] citalopram Allergy Unknown Verified 10/17/23 02:24 trazodone Allergy Unknown Verified 10/17/23 02:24 ALPHA LIPOIC ACID Allergy Unknown Uncoded 10/17/23 02:24 PICKLING OPERATOR-3 THYROID TOXICITY Allergy Unknown Uncoded 10/17/23 02:24 Assessment & Plan Assessment & Plan (1) Schizoaffective disorder: Qualifiers: Schizoaffective disorder type: depressive Qualified Code(s): F25.1 - Schizoaffective disorder, depressive type Status: Acute Code(s): F25.9 - Schizoaffective disorder, unspecified Plan admit to [facility] on Cv collect collateral from [facility], detention and VNA verify dose of haldol deconoate involve guardian in treatemtn discharge planning with team 12/19/23 continue tx plan, hold haldol deconoate until can verify last given dose from [facility]NA or [facility], encourage PO intake Reason for continued inpatient stay Substantial Risk for: harm to self and inability to function Time Spent With Patient Time: Total time managing care of this patient today ____ minutes.
[2023-12-19] MEDS: cloZAPine 100 MG, cloZAPine 25 MG 125 MG PO (13:11)
[2023-12-19 20:00] VITALS: BP 116/70; PULSE 95; RESP 17; TEMP 36.8; O2SAT 98
[2023-12-19 20:33] VITALS: BP 116/70
[2023-12-19] MEDS: Magnesium Oxide 400 MG TABLET PO (20:33)
[2023-12-20] MEDS: Thyroid,Pork 30 MG TABLET 60 MG PO (06:37)
[2023-12-20] MEDS: Omeprazole 20 MG CAPSULE.DR PO (06:37)
[2023-12-20 09:20] VITALS: BP 98/54; PULSE 85; RESP 16; TEMP 36.4; O2SAT 97
[2023-12-20] MEDS: Folic Acid 1 MG TABLET PO (09:25)
[2023-12-20] MEDS: Docusate Sodium 100 MG CAPSULE PO ×2 (09:25→20:59)
[2023-12-20] MEDS: Benztropine Mesylate 1 MG TABLET PO ×2 (09:25→21:00)
[2023-12-20 09:31] VITALS: BP 98/54; PULSE 85
[2023-12-20] MEDS: Propranolol HCL 10 MG TABLET PO ×2 (09:31→21:00)
[2023-12-20] MEDS: Multivitamin TABLET 1 TAB PO (09:31)
--- NOTE | 2023-12-20 11:46 | HO.PSYCHPN ---
Subjective Subjective Date of Service: 12/20/23 Reason For Visit: SCHIZOPHRENIA, SI Interim History: 38-year-old female, history of schizoaffective disorder, from [facility], where patient had presented with worsening auditory hallucinations and SI. Patient is resident at [facility] for around 10 years. Patient was recently discharged from [facility] where she was admitted on 12/07. She has had several recent admissions to [facility] she was admitted to [facility] inpatient on 10/17/2023 and then again on 11/07/2023. Pt has a [facility] and [facility] order in place, with some information available in the chart, but details around actual medications appears to be missing. Patient states that she received her Haldol Decanoate injection 6 days ago while in [facility] which has not been verified. Pt is sleepy, in bed patient reports today hearing voices telling her to go right to go left. She showered and went to group today. less internally preoccupied. She is difficult to engage in interview. slept well. denies SI or HI Medication Compliance: Yes Side effects from medications: No Attending Groups: Intermittent Review of Systems Acute medical concerns: No Medical Review of Systems: unchanged Review of Systems Review of Systems Denies any acute medical complaints, though declines full ROS Mental Status Exam Mental Status Exam Patient Appearance: Appropriate Patient Orientation: Situation Level of Consciousness: Awake and Alert Patient Behavior: Appropriate Mood Description: Anxious Affect Description: Withdrawn Ability to Follow Directions: Fair Speech Pattern: Long Pauses Thought Process: Distracted Thought Content: positive for [place] Judgement: Fair Diagnostics Vital Signs (24Hr): Vital Signs - 24 hr 12/19/23 20:00 12/19/23 20:33 12/20/23 09:20 Temperature 98.2 F 97.6 F Pulse Rate 95 85 Respiratory Rate 17 16 Blood Pressure 116/70 116/70 98/54 L Pulse Oximetry 98 97 Oxygen Delivery Method Room Air Room Air 12/20/23 09:31 Temperature Pulse Rate 85 Respiratory Rate Blood Pressure 98/54 L Pulse Oximetry Oxygen Delivery Method BMI result Body Mass Index 31.6 Medications Medications Current Medications Acetaminophen (Acetaminophen 325 Mg Tablet) 650 mg PO Q6H PRN PRN Reason: Headache/Pain Mild Scale (1-3) Al Hydroxide/Mg Hydroxide (Magnesium Hydrox/Alum Hydrox 30 Ml Oral.Susp) 30 ml PO Q6H PRN PRN Reason: Heartburn/Nausea Benztropine Mesylate (Benztropine Mesylate 1 Mg Tablet) 1 mg PO BID [facility] Last Admin: 12/20/23 09:25 Dose: 1 mg Clonazepam (Clonazepam 0.5 Mg Tablet) 0.5 mg PO BID PRN PRN Reason: Anxiety Clozapine 100 mg/ Clozapine 25 (mg) 125 mg PO 1400 [facility] Last Admin: 12/19/23 13:11 Dose: 125 mg Clozapine 200 mg/ Clozapine 75 (mg) 275 mg PO BEDTIME [facility] Last Admin: 12/19/23 20:32 Dose: 275 mg Docusate Sodium (Docusate Sodium 100 Mg Capsule) 100 mg PO BID [facility] Last Admin: 12/20/23 09:25 Dose: 100 mg Folic Acid (Folic Acid 1 Mg Tablet) 1 mg PO DAILY [facility] Last Admin: 12/20/23 09:25 Dose: 1 mg Haloperidol Decanoate (Haloperidol Decanoate 50 Mg/Ml Vial) 100 mg IM Q14D [facility] Last Admin: 12/18/23 10:39 Dose: Not Given Hydroxyzine HCl (Hydroxyzine Hcl 25 Mg Tablet) 25 mg PO Q6H PRN PRN Reason: Anxiety Magnesium Hydroxide (Milk Of Magnesia 30 Ml Oral.Susp) 30 ml PO DAILY PRN PRN Reason: Constipation Magnesium Oxide (Magnesium Oxide 400 Mg Tablet) 400 mg PO BEDTIME [facility] Last Admin: 12/19/23 20:33 Dose: 400 mg Multivitamins/Vitamin C (Multivitamin Tablet) 1 tab PO DAILY [facility] Last Admin: 12/20/23 09:31 Dose: 1 tab Patient Own ( (Tecfidera Dr 240 Mg)) 240 mg PO BID [facility] Last Admin: 12/20/23 09:26 Dose: 240 mg Omeprazole (Omeprazole 20 Mg Capsule.Dr) 20 mg PO DAILY@0630 [facility] Last Admin: 12/20/23 06:37 Dose: 20 mg Paliperidone Palmitate (Paliperidone Palmitate 234 Mg/1.5 Ml Syringe) 234 mg IM Q30D [facility] Propranolol HCl (Propranolol Hcl 10 Mg Tablet) 10 mg PO BID [facility]; Protocol Last Admin: 12/20/23 09:31 Dose: 10 mg Thyroid (Thyroid,Pork 30 Mg Tablet) 60 mg PO DAILY@0600 [facility] Last Admin: 12/20/23 06:37 Dose: 60 mg Vitamin A/Vitamin D (A And D Ointment 56.7 Gm Tube) 1 appl TOPICAL BID [facility]; Protocol Last Admin: 12/20/23 09:27 Dose: Not Given Allergies Allergies Allergy/AdvReac Type Severity Reaction Status Date / Time Pork/Porcine Containing Allergy Unknown RASH Verified 11/07/23 13:03 Products [PORK/PORCINE CONTAINING PRODUCTS] citalopram Allergy Unknown Verified 10/17/23 02:24 trazodone Allergy Unknown Verified 10/17/23 02:24 ALPHA LIPOIC ACID Allergy Unknown Uncoded 10/17/23 02:24 ELEVATOR MECHANIC APPRENTICE-3 THYROID TOXICITY Allergy Unknown Uncoded 10/17/23 02:24 Assessment & Plan Assessment & Plan (1) Schizoaffective disorder: Qualifiers: Schizoaffective disorder type: depressive Qualified Code(s): F25.1 - Schizoaffective disorder, depressive type Status: Acute Code(s): F25.9 - Schizoaffective disorder, unspecified Plan admit to [facility] collateral [facility] [place] [facility] verify dose of haldol deconoate involve guardian in treatemtn discharge planning with team 12/19/23 continue tx plan, hold haldol deconoate until can verify last given dose from [facility] or [facility], encourage PO intake 12/20/23 cont tx Patient educated on: medication risk/benefits and therapeutic strategies Informed Consent: further education needed Reason for continued inpatient stay Substantial Risk for: harm to self and inability to function Time Spent With Patient Time: Total time managing care of this patient today ____ minutes.
[2023-12-20] MEDS: cloZAPine 100 MG, cloZAPine 25 MG 125 MG PO (13:06)
[2023-12-20 19:58] VITALS: BP 134/78; PULSE 114; RESP 16; TEMP 36.8; O2SAT 97
[2023-12-20] MEDS: Magnesium Oxide 400 MG TABLET PO (21:00)
[2023-12-20] MEDS: clonazePAM 0.5 MG TABLET PO (21:39)
[2023-12-20] MEDS: Haloperidol Lactate Oral Conc 10 MG/5 ML ORAL.CONC 5 MG PO (22:08)
[2023-12-21] MEDS: Thyroid,Pork 30 MG TABLET 60 MG PO (07:07)
[2023-12-21] MEDS: Omeprazole 20 MG CAPSULE.DR PO (07:07)
[2023-12-21 09:00] VITALS: BP 90/60; PULSE 82; RESP 16; TEMP 36.6; O2SAT 99
[2023-12-21] MEDS: A and D Ointment 56.7 GM TUBE 1 APPL TOPICAL (09:05)
[2023-12-21] MEDS: Docusate Sodium 100 MG CAPSULE PO ×2 (09:06→19:59)
[2023-12-21] MEDS: Folic Acid 1 MG TABLET PO (09:06)
[2023-12-21] MEDS: Multivitamin TABLET 1 TAB PO (09:06)
[2023-12-21] MEDS: Benztropine Mesylate 1 MG TABLET PO ×2 (09:07→19:57)
[2023-12-21] MEDS: Propranolol HCL 10 MG TABLET PO ×2 (09:07→19:58)
--- NOTE | 2023-12-21 09:32 | P.PNPSI_ITS ---
Subjective Subjective Date of Service: 12/21/23 Reason For Visit: SCHIZOPHRENIA, SI Interim History: met with patient; discussed with team pt reports continued incessant AH, however they are only saying things like go straight...go left...go right and no longer saying mean, provoking things. Pt asked for higher Haldol dose saying she was supposed to have it available but it was only started yesterday. She says that until about a month ago, she was doing quite well, but then her medications got changed/missed and since then she's decompensated with AH. She's not sure why her medications were changed. To her recollection she recieved Haldol Dec when she was at [facility] about a week ago. Pt gave permission to call sister/HCP and gave Griselda's phone number. Mental Status Exam Mental Status Exam Narrative: Pt is alert and oriented; behavior is cooperative, slow moving, calm; patient is not in distress; dressed in hospital attire with unkempt hair but adequate hygiene; mood is described as anxious/depressed and affect congruent, blunted; eye contact appropriate; Speech is with some latency and marred by thought blocking; slowed, soft; significant psychomotor retardation present; thought process is goal directed and seems organized; Thought content is on tx for AH; denies delusional thinking and none expressed; intermittent SI/no HI. +AH Patients insight and judgment impaired. Diagnostics Vital Signs (24Hr): Vital Signs - 24 hr 12/20/23 19:58 12/21/23 09:00 Temperature 98.3 F 97.9 F Pulse Rate 114 H 82 Respiratory Rate 16 16 Blood Pressure 134/78 90/60 Pulse Oximetry 97 99 Oxygen Delivery Method Room Air Room Air BMI result Body Mass Index 31.6 Medications Medications Current Medications Acetaminophen (Acetaminophen 325 Mg Tablet) 650 mg PO Q6H PRN PRN Reason: Headache/Pain Mild Scale (1-3) Al Hydroxide/Mg Hydroxide (Magnesium Hydrox/Alum Hydrox 30 Ml Oral.Susp) 30 ml PO Q6H PRN PRN Reason: Heartburn/Nausea Benztropine Mesylate (Benztropine Mesylate 1 Mg Tablet) 1 mg PO BID [facility] Last Admin: 12/21/23 09:07 Dose: 1 mg Clonazepam (Clonazepam 0.5 Mg Tablet) 0.5 mg PO BID PRN PRN Reason: Anxiety Last Admin: 12/20/23 21:39 Dose: 0.5 mg Clozapine 100 mg/ Clozapine 25 (mg) 125 mg PO 1400 [facility] Last Admin: 12/20/23 13:06 Dose: 125 mg Clozapine 200 mg/ Clozapine 75 (mg) 275 mg PO BEDTIME [facility] Last Admin: 12/20/23 20:59 Dose: 275 mg Docusate Sodium (Docusate Sodium 100 Mg Capsule) 100 mg PO BID [facility] Last Admin: 12/21/23 09:06 Dose: 100 mg Folic Acid (Folic Acid 1 Mg Tablet) 1 mg PO DAILY [facility] Last Admin: 12/21/23 09:06 Dose: 1 mg Haloperidol Decanoate (Haloperidol Decanoate 50 Mg/Ml Vial) 100 mg IM Q14D [facility] Last Admin: 12/18/23 10:39 Dose: Not Given Haloperidol Lactate (Haloperidol Lactate Oral Conc 10 Mg/5 Ml Oral.Conc) 5 mg PO BID PRN PRN Reason: agitation Last Admin: 12/20/23 22:08 Dose: 5 mg Hydroxyzine HCl (Hydroxyzine Hcl 25 Mg Tablet) 25 mg PO Q6H PRN PRN Reason: Anxiety Magnesium Hydroxide (Milk Of Magnesia 30 Ml Oral.Susp) 30 ml PO DAILY PRN PRN Reason: Constipation Magnesium Oxide (Magnesium Oxide 400 Mg Tablet) 400 mg PO BEDTIME [facility] Last Admin: 12/20/23 21:00 Dose: 400 mg Multivitamins/Vitamin C (Multivitamin Tablet) 1 tab PO DAILY [facility] Last Admin: 12/21/23 09:06 Dose: 1 tab Patient Own ( (Tecfidera Dr 240 Mg)) 240 mg PO BID [facility] Last Admin: 12/21/23 09:07 Dose: 240 mg Omeprazole (Omeprazole 20 Mg Capsule.Dr) 20 mg PO DAILY@0630 [facility] Last Admin: 12/21/23 07:07 Dose: 20 mg Paliperidone Palmitate (Paliperidone Palmitate 234 Mg/1.5 Ml Syringe) 234 mg IM Q30D [facility] Propranolol HCl (Propranolol Hcl 10 Mg Tablet) 10 mg PO BID [facility]; Protocol Last Admin: 12/21/23 09:07 Dose: 10 mg Thyroid (Thyroid,Pork 30 Mg Tablet) 60 mg PO DAILY@0600 [facility] Last Admin: 12/21/23 07:07 Dose: 60 mg Vitamin A/Vitamin D (A And D Ointment 56.7 Gm Tube) 1 appl TOPICAL BID [facility]; Protocol Last Admin: 12/21/23 09:05 Dose: 1 appl Allergies Allergies Allergy/AdvReac Type Severity Reaction Status Date / Time Pork/Porcine Containing Allergy Unknown RASH Verified 11/07/23 13:03 Products [PORK/PORCINE CONTAINING PRODUCTS] citalopram Allergy Unknown Verified 10/17/23 02:24 trazodone Allergy Unknown Verified 10/17/23 02:24 ALPHA LIPOIC ACID Allergy Unknown Uncoded 10/17/23 02:24 FOUNDATION ENGINEER-3 THYROID TOXICITY Allergy Unknown Uncoded 10/17/23 02:24 Assessment & Plan Assessment & Plan (1) Schizoaffective disorder: Qualifiers: Schizoaffective disorder type: depressive Qualified Code(s): F25.1 - Schizoaffective disorder, depressive type Status: Acute Code(s): F25.9 - Schizoaffective disorder, unspecified (2) Multiple sclerosis: Status: Acute Code(s): G35 - Multiple sclerosis (3) Mild persistent asthma: Status: Acute Code(s): J45.30 - Mild persistent asthma, uncomplicated Plan 38-year-old female, history of schizoaffective disorder, direct admission from [facility], where patient had presented with worsening auditory hallucinations and SI. Patient is resident at [facility] for around 10 years. Patient was recently discharged from [facility] where she was admitted on 12/07. She has had several recent admissions to [facility] she was admitted to [facility] inpatient on 10/17/2023 and then again on 11/07/2023. [facility], with some information available in the chart, but details around actual medications appears to be missing. Patient states that she received her Haldol Decanoate injection 6 days ago while in [facility]. patient reports today hearing voices telling her to go right to go left. Pt stares blankly at times; appears to be internally preoccupied. She is difficult to engage in interview; she appears anxious. denies SI or HI This commercial loan underwriter spoke to Griselda NAQVI, patient's guardian: Her concerns are to try to help Anajli get back to baseline she had 2 years stability while at the residential. She reports that there have been problems with medication, getting the correct medication on time due to a number of factors difficulty with the rims certification, difficulty with the [facility] not having the correct equipment when her injection was done was due, and after different hospitalizations medication list at discharge was not complete and the residential home was unable to correct her medication list. Griselda wonders if her sister could be placed in a long-term care nursing facility for more consistent care. Hospital course: 12/19/23 continue tx plan, hold haldol deconoate until can verify last given dose from [facility] or [facility], encourage PO intake 12/20/23 cont tx 12/20 pt reports continued incessant AH, however they are only saying things like go straight...go left...go right and no longer saying mean, provoking things. Pt asked for higher Haldol dose saying she was supposed to have it available but it was only started yesterday. She says that until about a month ago, she was doing quite well, but then her medications got changed/missed and since then she's decompensated with AH. She's not sure why her medications were changed. To her recollection she recieved Haldol Dec when she was at [facility] about a week ago. -Pt gave permission to call sister/HCP and gave Griselda's phone number. PLAN: CV Q 15 minute checks Clonazepam 0.5 mg b.i.d. p.r.n. Clozaril 125 mg 14:00 Clozaril 275 mg q.h.s. Haldol 5 mg b.i.d. p.r.n. Start Haldol 5 mg b.i.d. scheduled Invega Sustenna 234 mg Q 30 days last dose administered 12/20? Thyroid 60 mg daily Omeprazole [address] 240mg BID for MS collect collateral from [facility], residential and [facility] verify dose of haldol deconoate involve guardian in treatemtn discharge planning with team Patient educated on: diagnosis and medication risk/benefits Informed Consent: understands Reason for continued inpatient stay Substantial Risk for: inability to function Time Spent With Patient Time: Total time managing care of this patient today ____ minutes.
[2023-12-21] MEDS: cloZAPine 100 MG, cloZAPine 25 MG 125 MG PO (13:50)
[2023-12-21] MEDS: Haloperidol Lactate Oral Conc 10 MG/5 ML ORAL.CONC 5 MG PO ×3 (13:51→19:55)
[2023-12-21] MEDS: Acetaminophen 325 MG TABLET 650 MG PO (13:51)
[2023-12-21] MEDS: Magnesium Oxide 400 MG TABLET PO (19:57)
[2023-12-21] MEDS: clonazePAM 0.5 MG TABLET PO (19:57)
[2023-12-21 19:58] VITALS: BP 98/60; PULSE 106
[2023-12-21 20:00] VITALS: BP 98/60; PULSE 106; RESP 18; TEMP 36.8; O2SAT 98
--- NOTE | 2023-12-22 | ECG_ITS ---
Test Reason : ck qt ck rhyhm Blood Pressure : / mmHG Vent. Rate : 093 BPM Atrial Rate : 093 BPM P-R Int : 138 ms QRS Dur : 084 ms QT Int : 342 ms P-R-T Axes : 060 057 028 degrees QTc Int : 425 ms Normal sinus rhythm Normal ECG When compared with ECG of 18-OCT-2023 18:34, No significant change was found Referred By: Jose Miguel Kerns Electronically Signed By:MY ROSALES
[2023-12-22] MEDS: Omeprazole 20 MG CAPSULE.DR PO (06:27)
[2023-12-22] MEDS: Thyroid,Pork 30 MG TABLET 60 MG PO (06:27)
--- NOTE | 2023-12-22 09:51 | HO.PSYCHPN ---
Subjective Subjective Date of Service: 12/22/23 Reason For Visit: SCHIZOPHRENIA, SI Interim History: Met with patient; discussed with team Patient continues to report auditory hallucinations however they are still just giving her directions to follow., go left, go right.. Which she says is an improvement and they are no longer saying nasty things. Patient remains convinced that she received Haldol Decanoate at [facility]; however she accepts the [facility] providers report to this curriculum writer that she did not receive it and agrees to get a now. Farm Management Professor discussed case with patient's sister Griselda: pt doing well on regimen (clozapine, invega sustenna, Haldol Dec +prn) until this past august when she got dx with MS and was hospitalized during which time Invega held and that and other psych meds accidentally not restarted (or delayed...). AH returned and since then, patients sister has been trying to get proper med regimen restarted (at one pt there was problem with clozapine rems). Reviewed list of meds and will change accordingly (increasing mag-oxide to 500mg which is her outpt dose and helped reduce need for clozapine) Farm Management Professor [facility] who reports that pt was NOT given Haldol Dec or any other long acting med while there. She did increase her Clozapine to 175mg at 2pm and 275mg at 5pm. Mental Status Exam Mental Status Exam Narrative: Pt is alert and oriented; behavior is cooperative, slow moving, calm; patient is not in distress; dressed in hospital attire with unkempt hair but adequate hygiene; mood is described as anxious/depressed and affect congruent, blunted; eye contact appropriate; Speech is with some latency and marred by thought blocking; slowed, soft; significant psychomotor retardation present; thought process is goal directed and seems organized; Thought content is on tx for AH; denies delusional thinking and none expressed; intermittent SI/no HI. +AH Patients insight and judgment impaired. Diagnostics Vital Signs (24Hr): Vital Signs - 24 hr 12/21/23 19:58 12/21/23 20:00 Temperature 98.3 F Pulse Rate 106 H 106 H Respiratory Rate 18 Blood Pressure 98/60 98/60 Pulse Oximetry 98 Oxygen Delivery Method Room Air BMI result Body Mass Index 31.6 Medications Medications Current Medications Acetaminophen (Acetaminophen 325 Mg Tablet) 650 mg PO Q6H PRN PRN Reason: Headache/Pain Mild Scale (1-3) Last Admin: 12/21/23 13:51 Dose: 650 mg Al Hydroxide/Mg Hydroxide (Magnesium Hydrox/Alum Hydrox 30 Ml Oral.Susp) 30 ml PO Q6H PRN PRN Reason: Heartburn/Nausea Benztropine Mesylate (Benztropine Mesylate 1 Mg Tablet) 1 mg PO BID [facility] Last Admin: 12/21/23 19:57 Dose: 1 mg Clonazepam (Clonazepam 0.5 Mg Tablet) 0.5 mg PO BID PRN PRN Reason: Anxiety Last Admin: 12/21/23 19:57 Dose: 0.5 mg Clozapine 100 mg/ Clozapine 25 (mg) 125 mg PO 1400 [facility] Last Admin: 12/21/23 13:50 Dose: 125 mg Clozapine 200 mg/ Clozapine 75 (mg) 275 mg PO BEDTIME [facility] Last Admin: 12/21/23 19:56 Dose: 275 mg Docusate Sodium (Docusate Sodium 100 Mg Capsule) 100 mg PO BID [facility] Last Admin: 12/21/23 19:59 Dose: 100 mg Folic Acid (Folic Acid 1 Mg Tablet) 1 mg PO DAILY [facility] Last Admin: 12/21/23 09:06 Dose: 1 mg Haloperidol Decanoate (Haloperidol Decanoate 50 Mg/Ml Vial) 100 mg IM Q14D [facility] Last Admin: 12/18/23 10:39 Dose: Not Given Haloperidol Lactate (Haloperidol Lactate Oral Conc 10 Mg/5 Ml Oral.Conc) 5 mg PO BID PRN PRN Reason: agitation Last Admin: 12/21/23 13:51 Dose: 5 mg Haloperidol Lactate (Haloperidol Lactate Oral Conc 10 Mg/5 Ml Oral.Conc) 5 mg PO BID [facility] Last Admin: 12/21/23 19:55 Dose: 5 mg Hydroxyzine HCl (Hydroxyzine Hcl 25 Mg Tablet) 25 mg PO Q6H PRN PRN Reason: Anxiety Magnesium Hydroxide (Milk Of Magnesia 30 Ml Oral.Susp) 30 ml PO DAILY PRN PRN Reason: Constipation Magnesium Oxide (Magnesium Oxide 400 Mg Tablet) 400 mg PO BEDTIME [facility] Last Admin: 12/21/23 19:57 Dose: 400 mg Multivitamins/Vitamin C (Multivitamin Tablet) 1 tab PO DAILY [facility] Last Admin: 12/21/23 09:06 Dose: 1 tab Patient Own ( (Tecfidera Dr 240 Mg)) 240 mg PO BID [facility] Last Admin: 12/21/23 19:55 Dose: 240 mg Omeprazole (Omeprazole 20 Mg Capsule.) 20 mg PO DAILY@0630 [facility] Last Admin: 12/22/23 06:27 Dose: 20 mg Paliperidone Palmitate (Paliperidone Palmitate 234 Mg/1.5 Ml Syringe) 234 mg IM Q30D [facility] Propranolol HCl (Propranolol Hcl 10 Mg Tablet) 10 mg PO BID [facility]; Protocol Last Admin: 12/21/23 19:58 Dose: 10 mg Thyroid (Thyroid,Pork 30 Mg Tablet) 60 mg PO DAILY@0600 [facility] Last Admin: 12/22/23 06:27 Dose: 60 mg Vitamin A/Vitamin D (A And D Ointment 56.7 Gm Tube) 1 appl TOPICAL BID [facility]; Protocol Last Admin: 12/21/23 22:10 Dose: Not Given Allergies Allergies Allergy/AdvReac Type Severity Reaction Status Date / Time Pork/Porcine Containing Allergy Unknown RASH Verified 11/07/23 13:03 Products [PORK/PORCINE CONTAINING PRODUCTS] citalopram Allergy Unknown Verified 10/17/23 02:24 trazodone Allergy Unknown Verified 10/17/23 02:24 ALPHA LIPOIC ACID Allergy Unknown Uncoded 10/17/23 02:24 CORK WIRER-3 THYROID TOXICITY Allergy Unknown Uncoded 10/17/23 02:24 Assessment & Plan Assessment & Plan (1) Schizoaffective disorder: Qualifiers: Schizoaffective disorder type: depressive Qualified Code(s): F25.1 - Schizoaffective disorder, depressive type Status: Acute Code(s): F25.9 - Schizoaffective disorder, unspecified Plan 38-year-old female, history of schizoaffective disorder, direct admission from [facility], where patient had presented with worsening auditory hallucinations and SI. Patient is resident at [facility] for around 10 years. Patient was recently discharged from [facility] where she was admitted on 12/07. She has had several recent admissions to [facility] she was admitted to [facility] inpatient on 10/17/2023 and then again on 11/07/2023. Pt has a [facility] and [facility] order in place, with some information available in the chart, but details around actual medications appears to be missing. Patient states that she received her Haldol Decanoate injection 6 days ago while in [facility]. patient reports today hearing voices telling her to go right to go left. Pt stares blankly at times; appears to be internally preoccupied. She is difficult to engage in interview; she appears anxious. denies SI or HI This curriculum writer spoke to Griselda RAMOSDEZ, patient's guardian: Her concerns are to try to help Anjali get back to baseline she had 2 years stability while at the [facility]. She reports that there have been problems with medication, getting the correct medication on time due to a number of factors difficulty with the rims certification, difficulty with the [facility] not having the correct equipment when her injection was done was due, and after different hospitalizations medication list at discharge was not complete and the residential home was unable to correct her medication list. Griselda wonders if her sister could be placed in a long-term care nursing facility for more consistent care. Hospital course: 12/19/23 continue tx plan, hold haldol deconoate until can verify last given dose from [facility] or [facility], encourage PO intake 12/20/23 cont tx 12/20 pt reports continued incessant AH, however they are only saying things like go straight...go left...go right and no longer saying mean, provoking things. Pt asked for higher Haldol dose saying she was supposed to have it available but it was only started yesterday. She says that until about a month ago, she was doing quite well, but then her medications got changed/missed and since then she's decompensated with AH. She's not sure why her medications were changed. To her recollection she recieved Haldol Dec when she was at [facility] about a week ago. -Pt gave permission to call sister/HCP and gave Griselda's phone number. 12/21 Patient continues to report auditory hallucinations however they are still just giving her directions to follow., go left, go right.. Which she says is an improvement and they are no longer saying nasty things. Patient remains convinced that she received Haldol Decanoate at [facility]; however she accepts the [facility] providers report to this curriculum writer that she did not receive it and agrees to get a now. Collateral: 1.Farm Management Professor discussed case with patient's sister Griselda: pt doing well on regimen (clozapine, invega sustenna, Haldol Dec +prn) until this past august when she got dx with MS and was hospitalized during which time Invega held and that and other psych meds accidentally not restarted (or delayed...). AH returned and since then, patients sister has been trying to get proper med regimen restarted (at one pt there was problem with clozapine rems). Reviewed list of meds and will change accordingly (increasing mag-oxide to 500mg which is her outpt dose and helped reduce need for clozapine) 2.Farm Management Professor discussed case with psychiatric PA at [facility] who reports that pt was NOT given Haldol Dec or any other long acting med while there. She did increase her Clozapine to 175mg at 2pm and 275mg at 5pm. PLAN: CV Q 15 minute checks GivE Haldol Decanoate 100 mg on 12/21 and then q.2 weeks Clonazepam 1mg qhs . Clozaril 125 mg 14:00 Clozaril 275 mg q.h.s. (increased at [facility] from 250mg) Magnesium oxide 500 mg Q 17:00 Haldol 5 mg b.i.d. p.r.n. Increased to Haldol 10 mg b.i.d. for now given patient is behind on Haldol and suffering from AH; plan will be to taper and eventually DC Invega Sustenna 234 mg Q 30 days- last dose administered 12/06/23 Thyroid 60 mg daily Omeprazole [address] 240mg BID for MS involve guardian in treatemtn discharge planning with team Patient educated on: diagnosis and medication risk/benefits Informed Consent: understands Reason for continued inpatient stay Substantial Risk for: inability to function Time Spent With Patient Time: Total time managing care of this patient today ____ minutes.
[2023-12-22 10:49] VITALS: BP 105/58; PULSE 101; TEMP 36.5; O2SAT 97
[2023-12-22 10:51] VITALS: BP 105/58; PULSE 101
[2023-12-22] MEDS: Folic Acid 1 MG TABLET PO (10:51)
[2023-12-22] MEDS: Docusate Sodium 100 MG CAPSULE PO ×2 (10:51→21:25)
[2023-12-22] MEDS: Benztropine Mesylate 1 MG TABLET PO ×2 (10:51→21:24)
[2023-12-22] MEDS: Propranolol HCL 10 MG TABLET PO (10:51)
[2023-12-22] MEDS: Haloperidol Lactate Oral Conc 10 MG/5 ML ORAL.CONC 5 MG PO ×2 (10:52→13:42)
[2023-12-22] MEDS: Multivitamin TABLET 1 TAB PO (10:57)
[2023-12-22] MEDS: cloZAPine 100 MG, cloZAPine 25 MG 125 MG PO (13:41)
[2023-12-22] MEDS: Haloperidol Decanoate 50 MG/ML VIAL 100 MG IM (14:45)
[2023-12-22] MEDS: clonazePAM 1 MG TABLET PO (16:49)
[2023-12-22 20:00] VITALS: BP 101/51; PULSE 57; RESP 16; TEMP 36.6; O2SAT 96
[2023-12-22] MEDS: A and D Ointment 56.7 GM TUBE 1 APPL TOPICAL (21:22)
[2023-12-22] MEDS: Haloperidol Lactate Oral Conc 10 MG/5 ML ORAL.CONC PO (21:23)
[2023-12-22] MEDS: Acetaminophen 325 MG TABLET 650 MG PO (21:25)
[2023-12-22 21:29] VITALS: BP 101/51; PULSE 57
[2023-12-22] MEDS: Magnesium Oxide 400 MG TABLET 500 MG PO (21:31)
[2023-12-23] MEDS: Thyroid,Pork 30 MG TABLET 60 MG PO (06:31)
[2023-12-23] MEDS: Omeprazole 20 MG CAPSULE.DR PO (06:31)
[2023-12-23 08:00] VITALS: BP 107/65; PULSE 82; RESP 16; TEMP 36.4; O2SAT 96
[2023-12-23] MEDS: Multivitamin TABLET 1 TAB PO (11:08)
[2023-12-23] MEDS: Haloperidol Lactate Oral Conc 10 MG/5 ML ORAL.CONC PO ×2 (11:08→20:38)
[2023-12-23] MEDS: Folic Acid 1 MG TABLET PO (11:08)
[2023-12-23] MEDS: Benztropine Mesylate 1 MG TABLET PO ×2 (11:08→20:41)
[2023-12-23] MEDS: Propranolol HCL 10 MG TABLET PO ×2 (11:08→20:41)
[2023-12-23] MEDS: Docusate Sodium 100 MG CAPSULE PO ×2 (11:09→20:41)
[2023-12-23] MEDS: cloZAPine 100 MG, cloZAPine 25 MG 125 MG PO (14:41)
[2023-12-23 15:26] VITALS: BMI 31.4
[2023-12-23] MEDS: clonazePAM 1 MG TABLET PO (17:18)
[2023-12-23 20:00] VITALS: BP 110/79; PULSE 100; RESP 16; TEMP 36.6; O2SAT 98
[2023-12-23] MEDS: Magnesium Oxide 400 MG TABLET 500 MG PO (20:39)
[2023-12-23 20:41] VITALS: BP 110/79; PULSE 100
[2023-12-24] MEDS: Thyroid,Pork 30 MG TABLET 60 MG PO (06:23)
[2023-12-24] MEDS: Omeprazole 20 MG CAPSULE.DR PO (06:23)
[2023-12-24 08:00] VITALS: BP 111/66; PULSE 85; RESP 16; TEMP 36.4; O2SAT 98
[2023-12-24] MEDS: Folic Acid 1 MG TABLET PO (08:41)
[2023-12-24] MEDS: Haloperidol Lactate Oral Conc 10 MG/5 ML ORAL.CONC PO ×2 (08:41→20:42)
[2023-12-24] MEDS: Propranolol HCL 10 MG TABLET PO ×2 (08:41→20:38)
[2023-12-24] MEDS: Multivitamin TABLET 1 TAB PO (08:41)
[2023-12-24] MEDS: Docusate Sodium 100 MG CAPSULE PO ×2 (08:41→20:38)
[2023-12-24] MEDS: Benztropine Mesylate 1 MG TABLET PO ×2 (08:41→20:38)
--- NOTE | 2023-12-24 09:30 | HO.PSYCHPN ---
Subjective Subjective Date of Service: 12/23/23 Reason For Visit: SCHIZOPHRENIA, SI Interim History: late entry note for pt seen on 12/22 Discussed with team Patient primarily isolating, lying in bed, not talking much unless talk to however cooperative. Patient reports that she continues to have auditory hallucinations, maybe there a little less intense but it is hard for her to tell. Appreciates help received and wants to continue with current medication regimen. Mental Status Exam Mental Status Exam Narrative: Pt is alert and oriented; behavior is cooperative, slow moving, calm; patient is not in distress; dressed in hospital attire with unkempt hair but adequate hygiene; mood is described as anxious/depressed and affect congruent, blunted; eye contact appropriate; Speech is with some latency and marred by thought blocking; slowed, soft; significant psychomotor retardation present; thought process is goal directed and seems organized; Thought content is on tx for AH; denies delusional thinking and none expressed; intermittent SI/no HI. +AH Patients insight and judgment impaired. Diagnostics Vital Signs (24Hr): Vital Signs - 24 hr 12/23/23 20:00 12/23/23 20:41 12/24/23 08:00 Temperature 97.8 F 97.5 F Pulse Rate 100 100 85 Respiratory Rate 16 16 Blood Pressure 110/79 110/79 111/66 Pulse Oximetry 98 98 Oxygen Delivery Method Room Air Room Air BMI result Body Mass Index 31.4 Medications Medications Current Medications Acetaminophen (Acetaminophen 325 Mg Tablet) 650 mg PO Q6H PRN PRN Reason: Headache/Pain Mild Scale (1-3) Last Admin: 12/22/23 21:25 Dose: 650 mg Al Hydroxide/Mg Hydroxide (Magnesium Hydrox/Alum Hydrox 30 Ml Oral.Susp) 30 ml PO Q6H PRN PRN Reason: Heartburn/Nausea Albuterol Sulfate (Albuterol Sulfate 90 Mcg 8 Gm Inhaler) 2 puff INHALE RQ4H PRN PRN Reason: Shortness of Breath Benztropine Mesylate (Benztropine Mesylate 1 Mg Tablet) 1 mg PO BID [facility] Last Admin: 12/24/23 08:41 Dose: 1 mg Clonazepam (Clonazepam 0.5 Mg Tablet) 0.5 mg PO BID PRN PRN Reason: Anxiety Last Admin: 12/21/23 19:57 Dose: 0.5 mg Clonazepam (Clonazepam 1 Mg Tablet) 1 mg PO DAILY@1700 [facility] Last Admin: 12/23/23 17:18 Dose: 1 mg Clozapine 100 mg/ Clozapine 25 (mg) 125 mg PO 1400 [facility] Last Admin: 12/23/23 14:41 Dose: 125 mg Clozapine 200 mg/ Clozapine 75 (mg) 275 mg PO BEDTIME [facility] Last Admin: 12/23/23 20:40 Dose: 275 mg Docusate Sodium (Docusate Sodium 100 Mg Capsule) 100 mg PO BID [facility] Last Admin: 12/24/23 08:41 Dose: 100 mg Folic Acid (Folic Acid 1 Mg Tablet) 1 mg PO DAILY [facility] Last Admin: 12/24/23 08:41 Dose: 1 mg Haloperidol Decanoate (Haloperidol Decanoate 50 Mg/Ml Vial) 100 mg IM Q14D [facility] Last Admin: 12/22/23 14:45 Dose: 100 mg Haloperidol Lactate (Haloperidol Lactate Oral Conc 10 Mg/5 Ml Oral.Conc) 5 mg PO BID PRN PRN Reason: agitation Last Admin: 12/21/23 13:51 Dose: 5 mg Haloperidol Lactate (Haloperidol Lactate Oral Conc 10 Mg/5 Ml Oral.Conc) 10 mg PO BID [facility] Last Admin: 12/24/23 08:41 Dose: 10 mg Hydroxyzine HCl (Hydroxyzine Hcl 25 Mg Tablet) 25 mg PO Q6H PRN PRN Reason: Anxiety Magnesium Hydroxide (Milk Of Magnesia 30 Ml Oral.Susp) 30 ml PO DAILY PRN PRN Reason: Constipation Magnesium Oxide (Magnesium Oxide 400 Mg Tablet) 500 mg PO BEDTIME [facility] Last Admin: 12/23/23 20:39 Dose: 500 mg Multivitamins/Vitamin C (Multivitamin Tablet) 1 tab PO DAILY [facility] Last Admin: 12/24/23 08:41 Dose: 1 tab Patient Own ( (Tecfidera Dr 240 Mg)) 240 mg PO BID [facility] Last Admin: 12/24/23 08:41 Dose: 240 mg Omeprazole (Omeprazole 20 Mg Capsule.Dr) 20 mg PO DAILY@0630 [facility] Last Admin: 12/24/23 06:23 Dose: 20 mg Paliperidone Palmitate (Paliperidone Palmitate 234 Mg/1.5 Ml Syringe) 234 mg IM Q30D [facility] Propranolol HCl (Propranolol Hcl 10 Mg Tablet) 10 mg PO BID [facility]; Protocol Last Admin: 12/24/23 08:41 Dose: 10 mg Thyroid (Thyroid,Pork 30 Mg Tablet) 60 mg PO DAILY@0600 [facility] Last Admin: 12/24/23 06:23 Dose: 60 mg Vitamin A/Vitamin D (A And D Ointment 56.7 Gm Tube) 1 appl TOPICAL BID [facility]; Protocol Last Admin: 12/24/23 08:51 Dose: Not Given Allergies Allergies Allergy/AdvReac Type Severity Reaction Status Date / Time Pork/Porcine Containing Allergy Unknown RASH Verified 11/07/23 13:03 Products [PORK/PORCINE CONTAINING PRODUCTS] citalopram Allergy Unknown Verified 10/17/23 02:24 trazodone Allergy Unknown Verified 10/17/23 02:24 ALPHA LIPOIC ACID Allergy Unknown Uncoded 10/17/23 02:24 SAP SD ANALYST-3 THYROID TOXICITY Allergy Unknown Uncoded 10/17/23 02:24 Assessment & Plan Assessment & Plan (1) Schizoaffective disorder: Qualifiers: Schizoaffective disorder type: depressive Qualified Code(s): F25.1 - Schizoaffective disorder, depressive type Status: Acute Code(s): F25.9 - Schizoaffective disorder, unspecified Plan 38-year-old female, history of schizoaffective disorder, direct admission from [facility], where patient had presented with worsening auditory hallucinations and SI. Patient is resident at [facility] for around 10 years. Patient was recently discharged from [facility] where she was admitted on 12/07. She has had several recent admissions to [facility] she was admitted to [facility] inpatient on 10/17/2023 and then again on 11/07/2023. Pt has a [facility] order in place, with some information available in the chart, but details around actual medications appears to be missing. Patient states that she received her Haldol Decanoate injection 6 days ago while in [facility]. patient reports today hearing voices telling her to go right to go left. Pt stares blankly at times; appears to be internally preoccupied. She is difficult to engage in interview; she appears anxious. denies SI or HI This chief underwriter spoke to Griselda NAQVI, patient's guardian: Her concerns are to try to help Anjali get back to baseline she had 2 years stability while at the [facility]. She reports that there have been problems with medication, getting the correct medication on time due to a number of factors difficulty with the rims certification, difficulty with the [facility]NA not having the correct equipment when her injection was done was due, and after different hospitalizations medication list at discharge was not complete and the residential home was unable to correct her medication list. Griselda wonders if her sister could be placed in a long-term care nursing facility for more consistent care. Hospital course: 12/19/23 continue tx plan, hold haldol deconoate until can verify last given dose from [facility] or [facility], encourage PO intake 12/20/23 cont tx 12/20 pt reports continued incessant AH, however they are only saying things like go straight...go left...go right and no longer saying mean, provoking things. Pt asked for higher Haldol dose saying she was supposed to have it available but it was only started yesterday. She says that until about a month ago, she was doing quite well, but then her medications got changed/missed and since then she's decompensated with AH. She's not sure why her medications were changed. To her recollection she recieved Haldol Dec when she was at [facility] about a week ago. -Pt gave permission to call sister/HCP and gave Grisedla's phone number. 12/21 Patient continues to report auditory hallucinations however they are still just giving her directions to follow., go left, go right.. Which she says is an improvement and they are no longer saying nasty things. Patient remains convinced that she received Haldol Decanoate at [facility]; however she accepts the [facility] providers report to this chief underwriter that she did not receive it and agrees to get a now. Collateral: 1.Inventory Checker discussed case with patient's sister Griselda: pt doing well on regimen (clozapine, invega sustenna, Haldol Dec +prn) until this past august when she got dx with MS and was hospitalized during which time Invega held and that and other psych meds accidentally not restarted (or delayed...). AH returned and since then, patients sister has been trying to get proper med regimen restarted (at one pt there was problem with clozapine rems). Reviewed list of meds and will change accordingly (increasing mag-oxide to 500mg which is her outpt dose and helped reduce need for clozapine) 2.Inventory Checker discussed case with psychiatric PA at [facility] who reports that pt was NOT given Haldol Dec or any other long acting med while there. She did increase her Clozapine to 175mg at 2pm and 275mg at 5pm. 12/22 remains with troubling AH, negative symptoms; continue treatment plan PLAN: CV Q 15 minute checks Clonazepam 1mg qhs . Clozaril 125 mg 14:00 Clozaril 275 mg q.h.s. (increased at [facility] from 250mg) Haldol Decanoate 100 mg received on 12/21 and then q.2 weeks Magnesium oxide 500 mg Q 17:00; for treatment for psychotic symptoms Haldol 5 mg b.i.d. p.r.n. Continue Haldol 10 mg b.i.d. for now given patient is behind on Haldol and suffering from AH; plan will be to taper and eventually DC Invega Sustenna 234 mg Q 30 days- last dose administered 12/06/23 Thyroid 60 mg daily Omeprazole [address] 240mg BID for MS involve guardian in treatment discharge planning with team Patient educated on: diagnosis and medication risk/benefits Informed Consent: understands Reason for continued inpatient stay Substantial Risk for: inability to function Time Spent With Patient Time: Total time managing care of this patient today ____ minutes.
--- NOTE | 2023-12-24 09:31 | HO.PSYCHPN ---
Subjective Subjective Date of Service: 12/24/23 Reason For Visit: SCHIZOPHRENIA, SI Interim History: Met with patient; discussed with team Patient appears to be a little more bright on approach however she continues to complain of persistent, problematic auditory hallucinations and does not think they have changed really that much. Patient attempting to go to groups and trying to distract herself but finds it difficult. Asked about her mood and she says she does not really feel depressed, just hoping that AH goes away Mental Status Exam Mental Status Exam Narrative: Pt is alert and oriented; behavior is cooperative, slow moving, calm; patient is not in distress; dressed in hospital attire with unkempt hair but adequate hygiene; mood is described as ok and affect congruent, a little brighter, though still primarily blunted; eye contact appropriate; Speech is with some latency and marred by thought blocking; slowed, soft; significant psychomotor retardation present; thought process is goal directed and seems organized; Thought content is on tx for AH; denies delusional thinking and none expressed; intermittent SI/no HI. +AH Patients insight and judgment impaired. Diagnostics Vital Signs (24Hr): Vital Signs - 24 hr 12/23/23 20:00 12/23/23 20:41 12/24/23 08:00 Temperature 97.8 F 97.5 F Pulse Rate 100 100 85 Respiratory Rate 16 16 Blood Pressure 110/79 110/79 111/66 Pulse Oximetry 98 98 Oxygen Delivery Method Room Air Room Air BMI result Body Mass Index 31.4 Medications Medications Current Medications Acetaminophen (Acetaminophen 325 Mg Tablet) 650 mg PO Q6H PRN PRN Reason: Headache/Pain Mild Scale (1-3) Last Admin: 12/22/23 21:25 Dose: 650 mg Al Hydroxide/Mg Hydroxide (Magnesium Hydrox/Alum Hydrox 30 Ml Oral.Susp) 30 ml PO Q6H PRN PRN Reason: Heartburn/Nausea Albuterol Sulfate (Albuterol Sulfate 90 Mcg 8 Gm Inhaler) 2 puff INHALE RQ4H PRN PRN Reason: Shortness of Breath Benztropine Mesylate (Benztropine Mesylate 1 Mg Tablet) 1 mg PO BID [facility] Last Admin: 12/24/23 08:41 Dose: 1 mg Clonazepam (Clonazepam 0.5 Mg Tablet) 0.5 mg PO BID PRN PRN Reason: Anxiety Last Admin: 05/28/24 19:57 Dose: 0.5 mg Clonazepam (Clonazepam 1 Mg Tablet) 1 mg PO DAILY@1700 [facility] Last Admin: 12/23/23 17:18 Dose: 1 mg Clozapine 100 mg/ Clozapine 25 (mg) 125 mg PO 1400 [facility] Last Admin: 12/23/23 14:41 Dose: 125 mg Clozapine 200 mg/ Clozapine 75 (mg) 275 mg PO BEDTIME [facility] Last Admin: 12/23/23 20:40 Dose: 275 mg Docusate Sodium (Docusate Sodium 100 Mg Capsule) 100 mg PO BID [facility] Last Admin: 12/24/23 08:41 Dose: 100 mg Folic Acid (Folic Acid 1 Mg Tablet) 1 mg PO DAILY [facility] Last Admin: 12/24/23 08:41 Dose: 1 mg Haloperidol Decanoate (Haloperidol Decanoate 50 Mg/Ml Vial) 100 mg IM Q14D [facility] Last Admin: 12/22/23 14:45 Dose: 100 mg Haloperidol Lactate (Haloperidol Lactate Oral Conc 10 Mg/5 Ml Oral.Conc) 5 mg PO BID PRN PRN Reason: agitation Last Admin: 12/21/23 13:51 Dose: 5 mg Haloperidol Lactate (Haloperidol Lactate Oral Conc 10 Mg/5 Ml Oral.Conc) 10 mg PO BID [facility] Last Admin: 12/24/23 08:41 Dose: 10 mg Hydroxyzine HCl (Hydroxyzine Hcl 25 Mg Tablet) 25 mg PO Q6H PRN PRN Reason: Anxiety Magnesium Hydroxide (Milk Of Magnesia 30 Ml Oral.Susp) 30 ml PO DAILY PRN PRN Reason: Constipation Magnesium Oxide (Magnesium Oxide 400 Mg Tablet) 500 mg PO BEDTIME [facility] Last Admin: 12/23/23 20:39 Dose: 500 mg Multivitamins/Vitamin C (Multivitamin Tablet) 1 tab PO DAILY [facility] Last Admin: 12/24/23 08:41 Dose: 1 tab Patient Own ( (Tecfidera Dr 240 Mg)) 240 mg PO BID [facility] Last Admin: 12/24/23 08:41 Dose: 240 mg Omeprazole (Omeprazole 20 Mg Capsule.Dr) 20 mg PO DAILY@0630 [facility] Last Admin: 12/24/23 06:23 Dose: 20 mg Paliperidone Palmitate (Paliperidone Palmitate 234 Mg/1.5 Ml Syringe) 234 mg IM Q30D [facility] Propranolol HCl (Propranolol Hcl 10 Mg Tablet) 10 mg PO BID [facility]; Protocol Last Admin: 12/24/23 08:41 Dose: 10 mg Thyroid (Thyroid,Pork 30 Mg Tablet) 60 mg PO DAILY@0600 [facility] Last Admin: 12/24/23 06:23 Dose: 60 mg Vitamin A/Vitamin D (A And D Ointment 56.7 Gm Tube) 1 appl TOPICAL BID [facility]; Protocol Last Admin: 12/24/23 08:51 Dose: Not Given Allergies Allergies Allergy/AdvReac Type Severity Reaction Status Date / Time Pork/Porcine Containing Allergy Unknown RASH Verified 11/07/23 13:03 Products [PORK/PORCINE CONTAINING PRODUCTS] citalopram Allergy Unknown Verified 10/17/23 02:24 trazodone Allergy Unknown Verified 10/17/23 02:24 ALPHA LIPOIC ACID Allergy Unknown Uncoded 10/17/23 02:24 LOCKER ROOM MANAGER-3 THYROID TOXICITY Allergy Unknown Uncoded 10/17/23 02:24 Assessment & Plan Assessment & Plan (1) Schizoaffective disorder: Qualifiers: Schizoaffective disorder type: depressive Qualified Code(s): F25.1 - Schizoaffective disorder, depressive type Status: Acute Code(s): F25.9 - Schizoaffective disorder, unspecified (2) PTSD (post-traumatic stress disorder): Status: Acute Code(s): F43.10 - Post-traumatic stress disorder, unspecified (3) Multiple sclerosis: Status: Acute Code(s): G35 - Multiple sclerosis (4) Mild persistent asthma: Status: Acute Code(s): J45.30 - Mild persistent asthma, uncomplicated Plan 38-year-old female, history of schizoaffective disorder, direct admission from [facility], where patient had presented with worsening auditory hallucinations and SI. Patient is resident at [facility] for around 10 years. Patient was recently discharged from [facility] where she was admitted on 12/07. She has had several recent admissions to [facility] she was admitted to [facility] inpatient on 10/17/2023 and then again on 11/07/2023. Pt has a [facility] and [facility] order in place, with some information available in the chart, but details around actual medications appears to be missing. Patient states that she received her Haldol Decanoate injection 6 days ago while in [facility]. patient reports today hearing voices telling her to go right to go left. Pt stares blankly at times; appears to be internally preoccupied. She is difficult to engage in interview; she appears anxious. denies SI or HI This filing writer spoke to Griselda DONYA, patient's guardian: Her concerns are to try to help Anjali get back to baseline she had 2 years stability [facility]. She reports that there have been problems with medication, getting the correct medication on time due to a number of factors difficulty with the rims certification, difficulty with the VNA not having the correct equipment when her injection was done was due, and after different hospitalizations medication list at discharge was not complete and the residential home was unable to correct her medication list. Griselda wonders if her sister could be placed in a long-term care nursing facility for more consistent care. Hospital course: 12/19/23 continue tx plan, hold haldol deconoate until can verify last given dose from [facility]NA or [facility], encourage PO intake 12/20/23 cont tx 12/20 pt reports continued incessant AH, however they are only saying things like go straight...go left...go right and no longer saying mean, provoking things. Pt asked for higher Haldol dose saying she was supposed to have it available but it was only started yesterday. She says that until about a month ago, she was doing quite well, but then her medications got changed/missed and since then she's decompensated with AH. She's not sure why her medications were changed. To her recollection she recieved Haldol Dec when she was at [facility] about a week ago. -Pt gave permission to call sister/HCP and gave Griselda's phone number. 12/21 Patient continues to report auditory hallucinations however they are still just giving her directions to follow., go left, go right.. Which she says is an improvement and they are no longer saying nasty things. Patient remains convinced that she received Haldol Decanoate at [facility]; however she accepts the [facility] providers report to this filing writer that she did not receive it and agrees to get a now. Collateral: 1.Sports Medicine Physician discussed case with patient's sister Griselda: pt doing well on regimen (clozapine, invega sustenna, Haldol Dec +prn) until this past august when she got dx with MS and was hospitalized during which time Invega held and that and other psych meds accidentally not restarted (or delayed...). AH returned and since then, patients sister has been trying to get proper med regimen restarted (at one pt there was problem with clozapine rems). Reviewed list of meds and will change accordingly (increasing mag-oxide to 500mg which is her outpt dose and helped reduce need for clozapine) 2.Sports Medicine Physician discussed case with psychiatric PA at [facility] who reports that pt was NOT given Haldol Dec or any other long acting med while there. She did increase her Clozapine to 175mg at 2pm and 275mg at 5pm. 12/22 remains with troubling AH, negative symptoms; continue treatment plan 12/23 continue tx plan PLAN: CV Q 15 minute checks Clonazepam 1mg qhs . Clozaril 125 mg 14:00 Clozaril 275 mg q.h.s. (increased at [facility] from 250mg) Haldol Decanoate 100 mg received on 12/21 and then q.2 weeks Magnesium oxide 500 mg Q 17:00; for treatment for psychotic symptoms Haldol 5 mg b.i.d. p.r.n. Continue Haldol 10 mg b.i.d. for now given patient is behind on Haldol and suffering from AH; plan will be to taper and eventually DC Invega Sustenna 234 mg Q 30 days- last dose administered 12/06/23 Thyroid 60 mg daily Omeprazole [address] 240mg BID for MS involve guardian in treatment discharge planning with team Patient educated on: diagnosis, medication risk/benefits and therapeutic strategies Informed Consent: understands Reason for continued inpatient stay Substantial Risk for: inability to function Time Spent With Patient Time: Total time managing care of this patient today ____ minutes.
[2023-12-24 12:40] LABS: Neut%MD 61.5 %; Neutrophils Absolute Auto 3.6 x10*3/uL (2.0-8.3); WBCANC 5.8 X10*3/uL
[2023-12-24] MEDS: cloZAPine 100 MG, cloZAPine 25 MG 125 MG PO (14:18)
[2023-12-24] MEDS: clonazePAM 1 MG TABLET PO (16:54)
[2023-12-24 20:00] VITALS: BP 98/54; PULSE 106; RESP 16; TEMP 36.8; O2SAT 96
[2023-12-24] MEDS: Magnesium Oxide 400 MG TABLET 500 MG PO (20:39)
[2023-12-25] MEDS: Thyroid,Pork 30 MG TABLET 60 MG PO (06:09)
[2023-12-25] MEDS: Omeprazole 20 MG CAPSULE.DR PO (06:09)
[2023-12-25 09:00] VITALS: BP 99/62; PULSE 80; RESP 16; TEMP 36.4; O2SAT 97
[2023-12-25] MEDS: Multivitamin TABLET 1 TAB PO (09:12)
[2023-12-25] MEDS: Benztropine Mesylate 1 MG TABLET PO ×2 (09:12→21:09)
[2023-12-25] MEDS: Docusate Sodium 100 MG CAPSULE PO ×2 (09:12→21:09)
[2023-12-25 09:13] VITALS: BP 99/62
[2023-12-25] MEDS: Propranolol HCL 10 MG TABLET PO ×2 (09:13→21:09)
[2023-12-25] MEDS: Folic Acid 1 MG TABLET PO (09:13)
[2023-12-25] MEDS: Loratadine 10 MG TABLET PO (09:13)
[2023-12-25] MEDS: Haloperidol Lactate Oral Conc 10 MG/5 ML ORAL.CONC PO ×2 (09:14→21:10)
[2023-12-25 14:35] VITALS: BP 126/74; PULSE 96; RESP 16; TEMP 36.9; O2SAT 98
[2023-12-25] MEDS: cloZAPine 100 MG, cloZAPine 25 MG 125 MG PO (14:36)
[2023-12-25] MEDS: hydrOXYzine HCL 25 MG TABLET PO (14:46)
[2023-12-25] MEDS: clonazePAM 1 MG TABLET PO (17:05)
--- NOTE | 2023-12-25 18:25 | P.PNPSI_ITS ---
Subjective Subjective Date of Service: 12/25/23 Reason For Visit: SCHIZOPHRENIA, SI Interim History: Met with pt, reviewed with team. She reports doing OK, denies sx of concern. Appears tired today, slept late. More visable in the milieu this afternoon and interactive. Medication Compliance: Yes Side effects from medications: No Attending Groups: Intermittent Review of Systems Acute medical concerns: No Medical Review of Systems: unchanged Review of Systems Review of Systems Yes all other systems are reviewed and are negative (denies) Mental Status Exam Mental Status Exam Patient Appearance: Fatigued Patient Orientation: Person, Place and Situation Level of Consciousness: Alert Patient Behavior: Talkative and Good Eye Contact Mood Description: Withdrawn and Depressed Affect Description: Flat Patient Cognition Impaired: No Ability to Follow Directions: Good Speech Pattern: Spontaneous Speech Memory Description: Intact Hallucinations: Auditory Perceptual Disturbances: Derealization Thought Process: Rumination Thought Content: positive for Perseveration Judgement: Fair Diagnostics Vital Signs (24Hr): Vital Signs - 24 hr 12/24/23 20:00 12/25/23 09:00 12/25/23 09:13 Temperature 98.2 F 97.5 F Pulse Rate 106 H 80 Respiratory Rate 16 16 Blood Pressure 98/54 L 99/62 99/62 Pulse Oximetry 96 97 Oxygen Delivery Method Room Air Room Air 12/25/23 14:35 Temperature 98.5 F Pulse Rate 96 Respiratory Rate 16 Blood Pressure 126/74 Pulse Oximetry 98 Oxygen Delivery Method Room Air BMI result Body Mass Index 31.4 Labs Labs: Laboratory Results - last 48 hr 12/24/23 12:34 Absolute Neuts (auto) 3.6 Medications Medications Current Medications Acetaminophen (Acetaminophen 325 Mg Tablet) 650 mg PO Q6H PRN PRN Reason: Headache/Pain Mild Scale (1-3) Last Admin: 12/22/23 21:25 Dose: 650 mg Al Hydroxide/Mg Hydroxide (Magnesium Hydrox/Alum Hydrox 30 Ml Oral.Susp) 30 ml PO Q6H PRN PRN Reason: Heartburn/Nausea Albuterol Sulfate (Albuterol Sulfate 90 Mcg 8 Gm Inhaler) 2 puff INHALE RQ4H PRN PRN Reason: Shortness of Breath Benztropine Mesylate (Benztropine Mesylate 1 Mg Tablet) 1 mg PO BID [facility] Last Admin: 12/25/23 09:12 Dose: 1 mg Clonazepam (Clonazepam 0.5 Mg Tablet) 0.5 mg PO BID PRN PRN Reason: Anxiety Last Admin: 12/21/23 19:57 Dose: 0.5 mg Clonazepam (Clonazepam 1 Mg Tablet) 1 mg PO DAILY@1700 [facility] Last Admin: 12/25/23 17:05 Dose: 1 mg Clozapine 100 mg/ Clozapine 25 (mg) 125 mg PO 1400 [facility] Last Admin: 12/25/23 14:36 Dose: 125 mg Clozapine 200 mg/ Clozapine 75 (mg) 275 mg PO BEDTIME [facility] Last Admin: 12/24/23 20:38 Dose: 275 mg Docusate Sodium (Docusate Sodium 100 Mg Capsule) 100 mg PO BID [facility] Last Admin: 12/25/23 09:12 Dose: 100 mg Folic Acid (Folic Acid 1 Mg Tablet) 1 mg PO DAILY [facility] Last Admin: 12/25/23 09:13 Dose: 1 mg Haloperidol Decanoate (Haloperidol Decanoate 50 Mg/Ml Vial) 100 mg IM Q14D [facility] Last Admin: 12/22/23 14:45 Dose: 100 mg Haloperidol Lactate (Haloperidol Lactate Oral Conc 10 Mg/5 Ml Oral.Conc) 5 mg PO BID PRN PRN Reason: agitation Last Admin: 12/21/23 13:51 Dose: 5 mg Haloperidol Lactate (Haloperidol Lactate Oral Conc 10 Mg/5 Ml Oral.Conc) 10 mg PO BID [facility] Last Admin: 12/25/23 09:14 Dose: 10 mg Hydroxyzine HCl (Hydroxyzine Hcl 25 Mg Tablet) 25 mg PO Q6H PRN PRN Reason: Anxiety Last Admin: 12/25/23 14:46 Dose: 25 mg Loratadine (Loratadine 10 Mg Tablet) 10 mg PO DAILY [facility] Last Admin: 12/25/23 09:13 Dose: 10 mg Magnesium Hydroxide (Milk Of Magnesia 30 Ml Oral.Susp) 30 ml PO DAILY PRN PRN Reason: Constipation Magnesium Oxide (Magnesium Oxide 400 Mg Tablet) 500 mg PO BEDTIME [facility] Last Admin: 12/24/23 20:39 Dose: 500 mg Multivitamins/Vitamin C (Multivitamin Tablet) 1 tab PO DAILY [facility] Last Admin: 12/25/23 09:12 Dose: 1 tab Patient Own ( (Tecfidera Dr 240 Mg)) 240 mg PO BID [facility] Last Admin: 12/25/23 09:49 Dose: 240 mg Omeprazole (Omeprazole 20 Mg Capsule.Dr) 20 mg PO DAILY@0630 [facility] Last Admin: 12/25/23 06:09 Dose: 20 mg Paliperidone Palmitate (Paliperidone Palmitate 234 Mg/1.5 Ml Syringe) 234 mg IM Q30D [facility] Propranolol HCl (Propranolol Hcl 10 Mg Tablet) 10 mg PO BID [facility]; Protocol Last Admin: 12/25/23 09:13 Dose: 10 mg Thyroid (Thyroid,Pork 30 Mg Tablet) 60 mg PO DAILY@0600 [facility] Last Admin: 12/25/23 06:09 Dose: 60 mg Vitamin A/Vitamin D (A And D Ointment 56.7 Gm Tube) 1 appl TOPICAL BID [facility]; Protocol Last Admin: 12/25/23 09:45 Dose: Not Given Allergies Allergies Allergy/AdvReac Type Severity Reaction Status Date / Time Pork/Porcine Containing Allergy Unknown RASH Verified 11/07/23 13:03 Products [PORK/PORCINE CONTAINING PRODUCTS] citalopram Allergy Unknown Verified 10/17/23 02:24 trazodone Allergy Unknown Verified 10/17/23 02:24 ALPHA LIPOIC ACID Allergy Unknown Uncoded 10/17/23 02:24 MACHINE SPECIALIST-3 THYROID TOXICITY Allergy Unknown Uncoded 10/17/23 02:24 Assessment & Plan Assessment & Plan (1) Schizoaffective disorder: Qualifiers: Schizoaffective disorder type: depressive Qualified Code(s): F25.1 - Schizoaffective disorder, depressive type Status: Acute Code(s): F25.9 - Schizoaffective disorder, unspecified (2) PTSD (post-traumatic stress disorder): Status: Acute Code(s): F43.10 - Post-traumatic stress disorder, unspecified (3) Multiple sclerosis: Status: Acute Code(s): G35 - Multiple sclerosis (4) Mild persistent asthma: Status: Acute Code(s): J45.30 - Mild persistent asthma, uncomplicated Plan 38-year-old female, history of schizoaffective disorder, direct admission from [facility], where patient had presented with worsening auditory hallucinations and SI. Patient is resident at [facility] for around 10 years. Patient was recently discharged from [facility] where she was admitted on 12/07. She has had several recent admissions to [facility] she was admitted to [facility] inpatient on 10/17/2023 and then again on 11/07/2023. Pt has a [facility] and [facility] order in place, with some information available in the chart, but details around actual medications appears to be missing. Patient states that she received her Haldol Decanoate injection 6 days ago while in [facility]. patient reports today hearing voices telling her to go right to go left. Pt stares blankly at times; appears to be internally preoccupied. She is difficult to engage in interview; she appears anxious. denies SI or HI This tag writer spoke to Griselda NAQVI, patient's guardian: Her concerns are to try to help Anjali get back to baseline she had 2 years stability [facility]. She reports that there have been problems with medication, getting the correct medication on time due to a number of factors difficulty with the rims certification, difficulty with the VNA not having the correct equipment when her injection was done was due, and after different hospitalizations medication list at discharge was not complete and the residential home was unable to correct her medication list. Griselda wonders if her sister could be placed in a long-term care nursing facility for more consistent care. Hospital course: 12/19/23 continue tx plan, hold haldol deconoate until can verify last given dose from [facility]NA or [facility], encourage PO intake 12/20/23 cont tx 12/20 pt reports continued incessant AH, however they are only saying things like go straight...go left...go right and no longer saying mean, provoking things. Pt asked for higher Haldol dose saying she was supposed to have it available but it was only started yesterday. She says that until about a month ago, she was doing quite well, but then her medications got changed/missed and since then she's decompensated with AH. She's not sure why her medications were changed. To her recollection she recieved Haldol Dec when she was at [facility] about a week ago. -Pt gave permission to call sister/HCP and gave Griselda's phone number. 12/21 Patient continues to report auditory hallucinations however they are still just giving her directions to follow., go left, go right.. Which she says is an improvement and they are no longer saying nasty things. Patient remains convinced that she received Haldol Decanoate at [facility]; however she accepts the [facility] providers report to this tag writer that she did not receive it and agrees to get a now. Collateral: 1.Washing Machine Loader And Puller discussed case with patient's sister Griselda: pt doing well on regimen (clozapine, invega sustenna, Haldol Dec +prn) until this past august when she got dx with MS and was hospitalized during which time Invega held and that and other psych meds accidentally not restarted (or delayed...). AH returned and since then, patients sister has been trying to get proper med regimen restarted (at one pt there was problem with clozapine rems). Reviewed list of meds and will change accordingly (increasing mag-oxide to 500mg which is her outpt dose and helped reduce need for clozapine) 2.Washing Machine Loader And Puller discussed [facility] who reports that pt was NOT given Haldol Dec or any other long acting med while there. She did increase her Clozapine to 175mg at 2pm and 275mg at 5pm. 12/22 remains with troubling AH, negative symptoms; continue treatment plan 12/23 continue tx plan 12/24 continue tx plan PLAN: CV Q 15 minute checks Clonazepam 1mg qhs . Clozaril 125 mg 14:00 Clozaril 275 mg q.h.s. (increased at [facility] from 250mg) Haldol Decanoate 100 mg received on 12/21 and then q.2 weeks Magnesium oxide 500 mg Q 17:00; for treatment for psychotic symptoms Haldol 5 mg b.i.d. p.r.n. Continue Haldol 10 mg b.i.d. for now given patient is behind on Haldol and suffering from AH; plan will be to taper and eventually DC Invega Sustenna 234 mg Q 30 days- last dose administered 12/06/23 Thyroid 60 mg daily Omeprazole [address] 240mg BID for MS involve guardian in treatment discharge planning with team Reason for continued inpatient stay Substantial Risk for: rapid decompensation Time Spent With Patient Time: Total time managing care of this patient today ____ minutes.
[2023-12-25 20:00] VITALS: BP 112/62; PULSE 84; RESP 16; TEMP 36.4; O2SAT 98
[2023-12-25] MEDS: Magnesium Oxide 400 MG TABLET 500 MG PO (21:09)
[2023-12-26] MEDS: Thyroid,Pork 30 MG TABLET 60 MG PO (05:45)
[2023-12-26] MEDS: Omeprazole 20 MG CAPSULE.DR PO (05:45)
[2023-12-26 07:32] VITALS: BP 102/60; PULSE 85; RESP 16; TEMP 36.4; O2SAT 95
[2023-12-26] MEDS: Propranolol HCL 10 MG TABLET PO ×2 (08:42→21:09)
[2023-12-26] MEDS: Docusate Sodium 100 MG CAPSULE PO ×2 (08:42→21:10)
[2023-12-26] MEDS: Loratadine 10 MG TABLET PO (08:42)
[2023-12-26] MEDS: Multivitamin TABLET 1 TAB PO (08:42)
[2023-12-26] MEDS: Haloperidol Lactate Oral Conc 10 MG/5 ML ORAL.CONC PO ×2 (08:42→21:09)
[2023-12-26] MEDS: Folic Acid 1 MG TABLET PO (08:42)
[2023-12-26] MEDS: Benztropine Mesylate 1 MG TABLET PO ×2 (08:42→21:10)
--- NOTE | 2023-12-26 10:55 | HO.PSYCHPN ---
Subjective Subjective Date of Service: 12/26/23 Reason For Visit: SCHIZOPHRENIA, SI Interim History: Pt seen, review with team Enjoyed family visits yesterday. Reviewed her allergies with tw and asked for changes. Continues to be somewhat isolative, a good amount of time in bed, but is awake alert when we talk and well engaged, smiling,and initiative of discussion. Denies SE of meds. Medication Compliance: Yes Review of Systems Acute medical concerns: No Medical Review of Systems: unchanged Review of Systems Review of Systems Yes all other systems are reviewed and are negative Mental Status Exam Mental Status Exam Patient Appearance: Fatigued Patient Orientation: Person, Place and Situation Level of Consciousness: Alert Patient Behavior: Talkative and Good Eye Contact Mood Description: Withdrawn and Depressed Affect Description: Flat Patient Cognition Impaired: No Ability to Follow Directions: Good Speech Pattern: Spontaneous Speech Memory Description: Intact Hallucinations: Auditory Perceptual Disturbances: Derealization Thought Process: Rumination Thought Content: positive for Perseveration Judgement: Fair Diagnostics Vital Signs (24Hr): Vital Signs - 24 hr 12/25/23 14:35 12/25/23 20:00 12/26/23 07:32 Temperature 98.5 F 97.6 F 97.5 F Pulse Rate 96 84 85 Respiratory Rate 16 16 16 Blood Pressure 126/74 112/62 102/60 Pulse Oximetry 98 98 95 Oxygen Delivery Method Room Air Room Air Room Air BMI result Body Mass Index 31.4 Labs Labs: Laboratory Results - last 48 hr 12/24/23 12:34 Absolute Neuts (auto) 3.6 Medications Medications Current Medications Acetaminophen (Acetaminophen 325 Mg Tablet) 650 mg PO Q6H PRN PRN Reason: Headache/Pain Mild Scale (1-3) Last Admin: 12/22/23 21:25 Dose: 650 mg Al Hydroxide/Mg Hydroxide (Magnesium Hydrox/Alum Hydrox 30 Ml Oral.Susp) 30 ml PO Q6H PRN PRN Reason: Heartburn/Nausea Albuterol Sulfate (Albuterol Sulfate 90 Mcg 8 Gm Inhaler) 2 puff INHALE RQ4H PRN PRN Reason: Shortness of Breath Benztropine Mesylate (Benztropine Mesylate 1 Mg Tablet) 1 mg PO BID [facility] Last Admin: 12/26/23 08:42 Dose: 1 mg Clonazepam (Clonazepam 0.5 Mg Tablet) 0.5 mg PO BID PRN PRN Reason: Anxiety Last Admin: 12/21/23 19:57 Dose: 0.5 mg Clonazepam (Clonazepam 1 Mg Tablet) 1 mg PO DAILY@1700 [facility] Last Admin: 12/25/23 17:05 Dose: 1 mg Clozapine 100 mg/ Clozapine 25 (mg) 125 mg PO 1400 [facility] Last Admin: 12/25/23 14:36 Dose: 125 mg Clozapine 200 mg/ Clozapine 75 (mg) 275 mg PO BEDTIME [facility] Last Admin: 12/25/23 21:09 Dose: 275 mg Docusate Sodium (Docusate Sodium 100 Mg Capsule) 100 mg PO BID [facility] Last Admin: 12/26/23 08:42 Dose: 100 mg Folic Acid (Folic Acid 1 Mg Tablet) 1 mg PO DAILY [facility] Last Admin: 12/26/23 08:42 Dose: 1 mg Haloperidol Decanoate (Haloperidol Decanoate 50 Mg/Ml Vial) 100 mg IM Q14D [facility] Last Admin: 12/22/23 14:45 Dose: 100 mg Haloperidol Lactate (Haloperidol Lactate Oral Conc 10 Mg/5 Ml Oral.Conc) 5 mg PO BID PRN PRN Reason: agitation Last Admin: 12/21/23 13:51 Dose: 5 mg Haloperidol Lactate (Haloperidol Lactate Oral Conc 10 Mg/5 Ml Oral.Conc) 10 mg PO BID [facility] Last Admin: 12/26/23 08:42 Dose: 10 mg Hydroxyzine HCl (Hydroxyzine Hcl 25 Mg Tablet) 25 mg PO Q6H PRN PRN Reason: Anxiety Last Admin: 12/25/23 14:46 Dose: 25 mg Loratadine (Loratadine 10 Mg Tablet) 10 mg PO DAILY [facility] Last Admin: 12/26/23 08:42 Dose: 10 mg Magnesium Hydroxide (Milk Of Magnesia 30 Ml Oral.Susp) 30 ml PO DAILY PRN PRN Reason: Constipation Magnesium Oxide (Magnesium Oxide 400 Mg Tablet) 500 mg PO BEDTIME [facility] Last Admin: 12/25/23 21:09 Dose: 500 mg Multivitamins/Vitamin C (Multivitamin Tablet) 1 tab PO DAILY [facility] Last Admin: 12/26/23 08:42 Dose: 1 tab Patient Own ( (Tecfidera Dr 240 Mg)) 240 mg PO BID [facility] Last Admin: 12/26/23 08:42 Dose: 240 mg Omeprazole (Omeprazole 20 Mg Capsule.Dr) 20 mg PO DAILY@0630 [facility] Last Admin: 12/26/23 05:45 Dose: 20 mg Paliperidone Palmitate (Paliperidone Palmitate 234 Mg/1.5 Ml Syringe) 234 mg IM Q30D [facility] Propranolol HCl (Propranolol Hcl 10 Mg Tablet) 10 mg PO BID [facility]; Protocol Last Admin: 12/26/23 08:42 Dose: 10 mg Thyroid (Thyroid,Pork 30 Mg Tablet) 60 mg PO DAILY@0600 [facility] Last Admin: 12/26/23 05:45 Dose: 60 mg Vitamin A/Vitamin D (A And D Ointment 56.7 Gm Tube) 1 appl TOPICAL BID [facility]; Protocol Last Admin: 12/26/23 08:42 Dose: Not Given Allergies Allergies Allergy/AdvReac Type Severity Reaction Status Date / Time Pork/Porcine Containing Allergy Unknown RASH Verified 11/07/23 13:03 Products [PORK/PORCINE CONTAINING PRODUCTS] citalopram Allergy Unknown Verified 10/17/23 02:24 trazodone Allergy Unknown Verified 10/17/23 02:24 ALPHA LIPOIC ACID Allergy Unknown Uncoded 10/17/23 02:24 MARINE CHRONOMETER ASSEMBLER-3 THYROID TOXICITY Allergy Unknown Uncoded 10/17/23 02:24 Assessment & Plan Assessment & Plan (1) Schizoaffective disorder: Qualifiers: Schizoaffective disorder type: depressive Qualified Code(s): F25.1 - Schizoaffective disorder, depressive type Status: Acute Code(s): F25.9 - Schizoaffective disorder, unspecified (2) PTSD (post-traumatic stress disorder): Status: Acute Code(s): F43.10 - Post-traumatic stress disorder, unspecified (3) Multiple sclerosis: Status: Acute Code(s): G35 - Multiple sclerosis (4) Mild persistent asthma: Status: Acute Code(s): J45.30 - Mild persistent asthma, uncomplicated Plan 38-year-old female, history of schizoaffective disorder, direct admission from , where patient had presented with worsening auditory hallucinations and SI. Patient is resident at [facility] for around 10 years. Patient was recently discharged from [facility] where she was admitted on 12/07. She has had several recent admissions to [facility] she was admitted to [facility] inpatient on 10/17/2023 and then again on 11/07/2023. Pt has a [facility] order in [facility], with some information available in the chart, but details around actual medications appears to be missing. Patient states that she received her Haldol Decanoate injection 6 days ago while in [facility]. patient reports today hearing voices telling her to go right to go left. Pt stares blankly at times; appears to be internally preoccupied. She is difficult to engage in interview; she appears anxious. denies SI or HI This content writer spoke to Griselda NAQVI, patient's guardian: Her concerns are to try to help Anjali get back to baseline she had 2 years stability while at the halfway. She reports that there have been problems with medication, getting the correct medication on time due to a number of factors difficulty with the rims certification, difficulty with the [facility]NA not having the correct equipment when her injection was done was due, and after different hospitalizations medication list at discharge was not complete and the residential home was unable to correct her medication list. Griselda wonders if her sister could be placed in a long-term care nursing facility for more consistent care. Hospital course: 12/19/23 continue tx plan, hold haldol deconoate until can verify last given dose from [facility] or [facility], encourage PO intake 12/20/23 cont tx 12/20 pt reports continued incessant AH, however they are only saying things like go straight...go left...go right and no longer saying mean, provoking things. Pt asked for higher Haldol dose saying she was supposed to have it available but it was only started yesterday. She says that until about a month ago, she was doing quite well, but then her medications got changed/missed and since then she's decompensated with AH. She's not sure why her medications were changed. To her recollection she recieved Haldol Dec when she was at [facility] about a week ago. -Pt gave permission to call sister/HCP and gave Griselda's phone number. 12/21 Patient continues to report auditory hallucinations however they are still just giving her directions to follow., go left, go right.. Which she says is an improvement and they are no longer saying nasty things. Patient remains convinced that she received Haldol Decanoate at [facility]; however she accepts the [facility] providers report to this content writer that she did not receive it and agrees to get a now. Collateral: 1.Ramp Agent discussed case with patient's sister Griselda: pt doing well on regimen (clozapine, invega sustenna, Haldol Dec +prn) until this past august when she got dx with MS and was hospitalized during which time Invega held and that and other psych meds accidentally not restarted (or delayed...). AH returned and since then, patients sister has been trying to get proper med regimen restarted (at one pt there was problem with clozapine rems). Reviewed list of meds and will change accordingly (increasing mag-oxide to 500mg which is her outpt dose and helped reduce need for clozapine) 2.Ramp Agent discussed case with psychiatric PA at [facility] who reports that pt was NOT given Haldol Dec or any other long acting med while there. She did increase her Clozapine to 175mg at 2pm and 275mg at 5pm. 12/22 remains with troubling AH, negative symptoms; continue treatment plan 12/23 continue tx plan 12/24 continue tx plan 12/25 continue tx plan PLAN: CV Q 15 minute checks Clonazepam 1mg qhs . Clozaril 125 mg 14:00 Clozaril 275 mg q.h.s. (increased at [facility] from 250mg) Haldol Decanoate 100 mg received on 12/21 and then q.2 weeks Magnesium oxide 500 mg Q 17:00; for treatment for psychotic symptoms Haldol 5 mg b.i.d. p.r.n. Continue Haldol 10 mg b.i.d. for now given patient is behind on Haldol and suffering from AH; plan will be to taper and eventually DC Invega Sustenna 234 mg Q 30 days- last dose administered 12/06/23 Thyroid 60 mg daily Omeprazole [address] 240mg BID for MS involve guardian in treatment discharge planning with team Reason for continued inpatient stay Substantial Risk for: rapid decompensation Time Spent With Patient Time: Total time managing care of this patient today ____ minutes.
[2023-12-26] MEDS: cloZAPine 100 MG, cloZAPine 25 MG 125 MG PO (14:06)
[2023-12-26] MEDS: clonazePAM 1 MG TABLET PO (17:42)
[2023-12-26 20:00] VITALS: BP 101/57; PULSE 100; RESP 16; TEMP 36.6; O2SAT 96
[2023-12-26] MEDS: Magnesium Oxide 400 MG TABLET 500 MG PO (21:09)
[2023-12-27] MEDS: Thyroid,Pork 30 MG TABLET 60 MG PO (06:19)
[2023-12-27] MEDS: Omeprazole 20 MG CAPSULE.DR PO (06:19)
--- NOTE | 2023-12-27 09:36 | HO.PSYCHPN ---
Subjective Subjective Date of Service: 12/27/23 Reason For Visit: SCHIZOPHRENIA, SI Interim History: met with patient; discussed with team pt reports that AH remain the same, no less intensity. However, but is much brighter, smiling at times, says she feels ok and has been out of her room attending groups...She agrees that this behavior may significy improvement at least in her mood, if not her ability to ignore voices. Mental Status Exam Mental Status Exam Narrative: Pt is alert and oriented; behavior is cooperative, friendly, calm; patient is not in distress; dressed in hospital attire with adequate hygiene; mood is described as ok and affect congruent, a little brighter, smiling some though still primarily blunted; eye contact appropriate; Speech is a little more spontaneous though still with with some latency and marred by thought blocking slowed and soft; significant psychomotor retardation present; thought process is goal directed and seems organized; Thought content is on tx for AH; denies delusional thinking and none expressed; no SI/no HI. +AH Patients insight and judgment impaired but improved. Diagnostics Vital Signs (24Hr): Vital Signs - 24 hr 12/26/23 20:00 Temperature 97.8 F Pulse Rate 100 Respiratory Rate 16 Blood Pressure 101/57 L Pulse Oximetry 96 Oxygen Delivery Method Room Air BMI result Body Mass Index 31.4 Medications Medications Current Medications Acetaminophen (Acetaminophen 325 Mg Tablet) 650 mg PO Q6H PRN PRN Reason: Headache/Pain Mild Scale (1-3) Last Admin: 12/22/23 21:25 Dose: 650 mg Al Hydroxide/Mg Hydroxide (Magnesium Hydrox/Alum Hydrox 30 Ml Oral.Susp) 30 ml PO Q6H PRN PRN Reason: Heartburn/Nausea Albuterol Sulfate (Albuterol Sulfate 90 Mcg 8 Gm Inhaler) 2 puff INHALE RQ4H PRN PRN Reason: Shortness of Breath Benztropine Mesylate (Benztropine Mesylate 1 Mg Tablet) 1 mg PO BID [facility] Last Admin: 12/26/23 21:10 Dose: 1 mg Clonazepam (Clonazepam 0.5 Mg Tablet) 0.5 mg PO BID PRN PRN Reason: Anxiety Last Admin: 12/21/23 19:57 Dose: 0.5 mg Clonazepam (Clonazepam 1 Mg Tablet) 1 mg PO DAILY@1700 [facility] Last Admin: 12/26/23 17:42 Dose: 1 mg Clozapine 100 mg/ Clozapine 25 (mg) 125 mg PO 1400 [facility] Last Admin: 12/26/23 14:06 Dose: 125 mg Clozapine 200 mg/ Clozapine 75 (mg) 275 mg PO BEDTIME [facility] Last Admin: 12/26/23 21:10 Dose: 275 mg Docusate Sodium (Docusate Sodium 100 Mg Capsule) 100 mg PO BID [facility] Last Admin: 12/26/23 21:10 Dose: 100 mg Folic Acid (Folic Acid 1 Mg Tablet) 1 mg PO DAILY [facility] Last Admin: 12/26/23 08:42 Dose: 1 mg Haloperidol Decanoate (Haloperidol Decanoate 50 Mg/Ml Vial) 100 mg IM Q14D [facility] Last Admin: 12/22/23 14:45 Dose: 100 mg Haloperidol Lactate (Haloperidol Lactate Oral Conc 10 Mg/5 Ml Oral.Conc) 5 mg PO BID PRN PRN Reason: agitation Last Admin: 12/21/23 13:51 Dose: 5 mg Haloperidol Lactate (Haloperidol Lactate Oral Conc 10 Mg/5 Ml Oral.Conc) 10 mg PO BID [facility] Last Admin: 12/26/23 21:09 Dose: 10 mg Hydroxyzine HCl (Hydroxyzine Hcl 25 Mg Tablet) 25 mg PO Q6H PRN PRN Reason: Anxiety Last Admin: 12/25/23 14:46 Dose: 25 mg Loratadine (Loratadine 10 Mg Tablet) 10 mg PO DAILY [facility] Last Admin: 12/26/23 08:42 Dose: 10 mg Magnesium Hydroxide (Milk Of Magnesia 30 Ml Oral.Susp) 30 ml PO DAILY PRN PRN Reason: Constipation Magnesium Oxide (Magnesium Oxide 400 Mg Tablet) 500 mg PO BEDTIME [facility] Last Admin: 12/26/23 21:09 Dose: 500 mg Multivitamins/Vitamin C (Multivitamin Tablet) 1 tab PO DAILY [facility] Last Admin: 12/26/23 08:42 Dose: 1 tab Patient Own ( (Tecfidera Dr 240 Mg)) 240 mg PO BID [facility] Last Admin: 12/26/23 21:09 Dose: 240 mg Omeprazole (Omeprazole 20 Mg Capsule.Dr) 20 mg PO DAILY@0630 [facility] Last Admin: 12/27/23 06:19 Dose: 20 mg Paliperidone Palmitate (Paliperidone Palmitate 234 Mg/1.5 Ml Syringe) 234 mg IM Q30D [facility] Propranolol HCl (Propranolol Hcl 10 Mg Tablet) 10 mg PO BID [facility]; Protocol Last Admin: 12/26/23 21:09 Dose: 10 mg Thyroid (Thyroid,Pork 30 Mg Tablet) 60 mg PO DAILY@0600 [facility] Last Admin: 12/27/23 06:19 Dose: 60 mg Vitamin A/Vitamin D (A And D Ointment 56.7 Gm Tube) 1 appl TOPICAL BID [facility]; Protocol Last Admin: 12/26/23 20:14 Dose: Not Given Allergies Allergies Allergy/AdvReac Type Severity Reaction Status Date / Time Pork/Porcine Containing Allergy Unknown RASH Verified 11/07/23 13:03 Products [PORK/PORCINE CONTAINING PRODUCTS] trazodone Allergy Unknown Verified 10/17/23 02:24 ALPHA LIPOIC ACID Allergy Unknown Uncoded 10/17/23 02:24 DESKTOP SUPPORT ENGINEER-3 THYROID TOXICITY Allergy Unknown Uncoded 10/17/23 02:24 Assessment & Plan Assessment & Plan (1) Schizoaffective disorder: Qualifiers: Schizoaffective disorder type: depressive Qualified Code(s): F25.1 - Schizoaffective disorder, depressive type Status: Acute Code(s): F25.9 - Schizoaffective disorder, unspecified (2) PTSD (post-traumatic stress disorder): Status: Acute Code(s): F43.10 - Post-traumatic stress disorder, unspecified (3) Multiple sclerosis: Status: Acute Code(s): G35 - Multiple sclerosis (4) Mild persistent asthma: Status: Acute Code(s): J45.30 - Mild persistent asthma, uncomplicated Plan 38-year-old female, history of schizoaffective disorder, direct admission from [facility], where patient had presented with worsening auditory hallucinations and SI. Patient is resident at [facility] for around 10 years. Patient was recently discharged from [facility] where she was admitted on 12/07. She has had several recent admissions to [facility] she was admitted to [facility] on 10/17/2023 and then again on 11/07/2023. Pt has a [facility] order in place, with some information available in the chart, but details around actual medications appears to be missing. Patient states that she received her Haldol Decanoate injection 6 days ago while in [facility]. patient reports today hearing voices telling her to go right to go left. Pt stares blankly at times; appears to be internally preoccupied. She is difficult to engage in interview; she appears anxious. denies SI or HI This securities underwriter spoke to Griselda DONYA, patient's guardian: Her concerns are to try to help Anjali get back to baseline she had 2 years stability while at the [facility]. She reports that there have been problems with medication, getting the correct medication on time due to a number of factors difficulty with the rims certification, difficulty with the VNA not having the correct equipment when her injection was done was due, and after different hospitalizations medication list at discharge was not complete and the residential home was unable to correct her medication list. Griselda wonders if her sister could be placed in a long-term care nursing facility for more consistent care. Hospital course: 12/19/23 continue tx plan, hold haldol deconoate until can verify last given dose from [facility]NA or [facility], encourage PO intake 12/20/23 cont tx 12/20 pt reports continued incessant AH, however they are only saying things like go straight...go left...go right and no longer saying mean, provoking things. Pt asked for higher Haldol dose saying she was supposed to have it available but it was only started yesterday. She says that until about a month ago, she was doing quite well, but then her medications got changed/missed and since then she's decompensated with AH. She's not sure why her medications were changed. To her recollection she recieved Haldol Dec when she was at [facility] about a week ago. -Pt gave permission to call sister/HCP and gave Griselda's phone number. 12/21 Patient continues to report auditory hallucinations however they are still just giving her directions to follow., go left, go right.. Which she says is an improvement and they are no longer saying nasty things. Patient remains convinced that she received Haldol Decanoate at [facility]; however she accepts the [facility] providers report to this securities underwriter that she did not receive it and agrees to get a now. Collateral: 1.Government Services Professional discussed case with patient's sister Griselda: pt doing well on regimen (clozapine, invega sustenna, Haldol Dec +prn) until this past august when she got dx with MS and was hospitalized during which time Invega held and that and other psych meds accidentally not restarted (or delayed...). AH returned and since then, patients sister has been trying to get proper med regimen restarted (at one pt there was problem with clozapine rems). Reviewed list of meds and will change accordingly (increasing mag-oxide to 500mg which is her outpt dose and helped reduce need for clozapine) 2.Government Services Professional discussed case with psychiatric PA at [facility] who reports that pt was NOT given Haldol Dec or any other long acting med while there. She did increase her Clozapine to 175mg at 2pm and 275mg at 5pm. 12/22 remains with troubling AH, negative symptoms; continue treatment plan 12/26 pt reports that AH remain the same, no less intensity. However, but is much brighter, smiling at times, says she feels ok and has been out of her room attending groups...She agrees that this behavior may significy improvement at least in her mood, if not her ability to ignore voices. -continue current tx regimen -will consider increasing clozapine PLAN: CV Q 15 minute checks Clonazepam 1mg qhs . Clozaril 125 mg 14:00 Clozaril 275 mg q.h.s. (increased at [facility] from 250mg) Haldol Decanoate 100 mg received on 12/21 and then q.2 weeks Magnesium oxide 500 mg Q 17:00; for treatment for psychotic symptoms Haldol 5 mg b.i.d. p.r.n. Continue Haldol 10 mg b.i.d. for now given patient is behind on Haldol and suffering from AH; plan will be to taper and eventually DC Invega Sustenna 234 mg Q 30 days- last dose administered 12/06/23 Thyroid 60 mg daily Omeprazole [address] 240mg BID for MS involve guardian in treatment discharge planning with team Patient educated on: diagnosis, medication risk/benefits and therapeutic strategies Informed Consent: understands Reason for continued inpatient stay Substantial Risk for: inability to function Time Spent With Patient Time: Total time managing care of this patient today ____ minutes.
[2023-12-27 09:50] VITALS: BP 102/58; PULSE 86; RESP 18; TEMP 36.5; O2SAT 95
[2023-12-27 09:57] VITALS: BP 102/58; PULSE 86
[2023-12-27] MEDS: Multivitamin TABLET 1 TAB PO (09:57)
[2023-12-27] MEDS: Propranolol HCL 10 MG TABLET PO ×2 (09:57→20:29)
[2023-12-27] MEDS: Folic Acid 1 MG TABLET PO (09:57)
[2023-12-27] MEDS: Benztropine Mesylate 1 MG TABLET PO ×2 (09:57→20:30)
[2023-12-27] MEDS: Loratadine 10 MG TABLET PO (09:58)
[2023-12-27] MEDS: Docusate Sodium 100 MG CAPSULE PO ×2 (09:58→20:30)
[2023-12-27] MEDS: Haloperidol Lactate Oral Conc 10 MG/5 ML ORAL.CONC PO ×2 (09:59→20:28)
[2023-12-27] MEDS: cloZAPine 100 MG, cloZAPine 25 MG 125 MG PO (14:23)
[2023-12-27] MEDS: clonazePAM 1 MG TABLET PO (18:28)
[2023-12-27 20:00] VITALS: BP 115/74; PULSE 101; RESP 16; TEMP 36.4; O2SAT 98
[2023-12-27] MEDS: Albuterol Sulfate 90 MCG 8 GM INHALER 2 PUFF INHALE (20:28)
[2023-12-27] MEDS: Magnesium Oxide 400 MG TABLET 500 MG PO (20:30)
[2023-12-28] MEDS: Thyroid,Pork 30 MG TABLET 60 MG PO (07:18)
[2023-12-28] MEDS: Omeprazole 20 MG CAPSULE.DR PO (07:18)
[2023-12-28 09:03] VITALS: BP 98/60; PULSE 79; RESP 16; TEMP 36.4; O2SAT 96
[2023-12-28] MEDS: Loratadine 10 MG TABLET PO (09:05)
[2023-12-28] MEDS: Multivitamin TABLET 1 TAB PO (09:05)
[2023-12-28] MEDS: Propranolol HCL 10 MG TABLET PO ×2 (09:05→21:06)
[2023-12-28] MEDS: Benztropine Mesylate 1 MG TABLET PO ×2 (09:05→21:09)
[2023-12-28] MEDS: Folic Acid 1 MG TABLET PO (09:05)
[2023-12-28] MEDS: Docusate Sodium 100 MG CAPSULE PO ×2 (09:05→21:09)
[2023-12-28] MEDS: Haloperidol Lactate Oral Conc 10 MG/5 ML ORAL.CONC PO ×2 (09:05→21:17)
--- NOTE | 2023-12-28 09:45 | HO.PSYCHPN ---
Subjective Subjective Date of Service: 12/28/23 Reason For Visit: SCHIZOPHRENIA, SI Interim History: Met with patient; discussed with team Patient said she is more tired today and does not know why. Of note, she is more withdrawn today than yesterday. Auditory hallucinations remain the same, continually saying go left, go right, go straight, get your food... They are debilitating and continued to cause much thought blocking and internal preoccupation. Patient and curriculum writer discussed medications and she agrees to increase clozapine. Mental Status Exam Mental Status Exam Narrative: Pt is alert and oriented; behavior is cooperative, friendly, calm; patient is not in distress; dressed in hospital attire with adequate hygiene; mood is described as ok and affect congruent, more blunted; eye contact staring (but blankly); Speech is with more thought blocking and latency today; slowed and soft; significant psychomotor retardation present; thought process is goal directed and seems organized; Thought content is on tx for AH; denies delusional thinking and none expressed; no SI/no HI. +AH Patients insight and judgment impaired but improved. Diagnostics Vital Signs (24Hr): Vital Signs - 24 hr 12/27/23 09:50 12/27/23 09:57 12/27/23 20:00 Temperature 97.7 F 97.6 F Pulse Rate 86 86 101 H Respiratory Rate 18 16 Blood Pressure 102/58 L 102/58 L 115/74 Pulse Oximetry 95 98 Oxygen Delivery Method Room Air Room Air 12/28/23 09:03 Temperature 97.6 F Pulse Rate 79 Respiratory Rate 16 Blood Pressure 98/60 Pulse Oximetry 96 Oxygen Delivery Method Room Air BMI result Body Mass Index 31.4 Medications Medications Current Medications Acetaminophen (Acetaminophen 325 Mg Tablet) 650 mg PO Q6H PRN PRN Reason: Headache/Pain Mild Scale (1-3) Last Admin: 12/22/23 21:25 Dose: 650 mg Al Hydroxide/Mg Hydroxide (Magnesium Hydrox/Alum Hydrox 30 Ml Oral.Susp) 30 ml PO Q6H PRN PRN Reason: Heartburn/Nausea Albuterol Sulfate (Albuterol Sulfate 90 Mcg 8 Gm Inhaler) 2 puff INHALE RQ4H PRN PRN Reason: Shortness of Breath Last Admin: 12/27/23 20:28 Dose: 2 puff Benztropine Mesylate (Benztropine Mesylate 1 Mg Tablet) 1 mg PO BID [facility] Last Admin: 12/28/23 09:05 Dose: 1 mg Clonazepam (Clonazepam 0.5 Mg Tablet) 0.5 mg PO BID PRN PRN Reason: Anxiety Last Admin: 12/21/23 19:57 Dose: 0.5 mg Clonazepam (Clonazepam 1 Mg Tablet) 1 mg PO DAILY@1700 [facility] Last Admin: 12/27/23 18:28 Dose: 1 mg Clozapine 100 mg/ Clozapine 25 (mg) 125 mg PO 1400 [facility] Last Admin: 12/27/23 14:23 Dose: 125 mg Clozapine 200 mg/ Clozapine 75 (mg) 275 mg PO BEDTIME [facility] Last Admin: 12/27/23 20:29 Dose: 275 mg Docusate Sodium (Docusate Sodium 100 Mg Capsule) 100 mg PO BID [facility] Last Admin: 12/28/23 09:05 Dose: 100 mg Folic Acid (Folic Acid 1 Mg Tablet) 1 mg PO DAILY [facility] Last Admin: 12/28/23 09:05 Dose: 1 mg Haloperidol Decanoate (Haloperidol Decanoate 50 Mg/Ml Vial) 100 mg IM Q14D [facility] Last Admin: 12/22/23 14:45 Dose: 100 mg Haloperidol Lactate (Haloperidol Lactate Oral Conc 10 Mg/5 Ml Oral.Conc) 5 mg PO BID PRN PRN Reason: agitation Last Admin: 12/21/23 13:51 Dose: 5 mg Haloperidol Lactate (Haloperidol Lactate Oral Conc 10 Mg/5 Ml Oral.Conc) 10 mg PO BID [facility] Last Admin: 12/28/23 09:05 Dose: 10 mg Hydroxyzine HCl (Hydroxyzine Hcl 25 Mg Tablet) 25 mg PO Q6H PRN PRN Reason: Anxiety Last Admin: 12/25/23 14:46 Dose: 25 mg Loratadine (Loratadine 10 Mg Tablet) 10 mg PO DAILY [facility] Last Admin: 12/28/23 09:05 Dose: 10 mg Magnesium Hydroxide (Milk Of Magnesia 30 Ml Oral.Susp) 30 ml PO DAILY PRN PRN Reason: Constipation Magnesium Oxide (Magnesium Oxide 400 Mg Tablet) 500 mg PO BEDTIME [facility] Last Admin: 12/27/23 20:30 Dose: 500 mg Multivitamins/Vitamin C (Multivitamin Tablet) 1 tab PO DAILY [facility] Last Admin: 12/28/23 09:05 Dose: 1 tab Patient Own ( (Tecfidera Dr 240 Mg)) 240 mg PO BID [facility] Last Admin: 12/28/23 09:05 Dose: 240 mg Omeprazole (Omeprazole 20 Mg Capsule.Dr) 20 mg PO DAILY@0630 [facility] Last Admin: 12/28/23 07:18 Dose: 20 mg Paliperidone Palmitate (Paliperidone Palmitate 234 Mg/1.5 Ml Syringe) 234 mg IM Q30D [facility] Propranolol HCl (Propranolol Hcl 10 Mg Tablet) 10 mg PO BID [facility]; Protocol Last Admin: 12/28/23 09:05 Dose: 10 mg Thyroid (Thyroid,Pork 30 Mg Tablet) 60 mg PO DAILY@0600 [facility] Last Admin: 12/28/23 07:18 Dose: 60 mg Vitamin A/Vitamin D (A And D Ointment 56.7 Gm Tube) 1 appl TOPICAL BID [facility]; Protocol Last Admin: 12/28/23 09:21 Dose: Not Given Allergies Allergies Allergy/AdvReac Type Severity Reaction Status Date / Time Pork/Porcine Containing Allergy Unknown RASH Verified 11/07/23 13:03 Products [PORK/PORCINE CONTAINING PRODUCTS] trazodone Allergy Unknown Verified 10/17/23 02:24 ALPHA LIPOIC ACID Allergy Unknown Uncoded 10/17/23 02:24 FINANCIAL SERVICES AGENT-3 THYROID TOXICITY Allergy Unknown Uncoded 10/17/23 02:24 Assessment & Plan Assessment & Plan (1) Schizoaffective disorder: Qualifiers: Schizoaffective disorder type: depressive Qualified Code(s): F25.1 - Schizoaffective disorder, depressive type Status: Acute Code(s): F25.9 - Schizoaffective disorder, unspecified (2) PTSD (post-traumatic stress disorder): Status: Acute Code(s): F43.10 - Post-traumatic stress disorder, unspecified (3) Multiple sclerosis: Status: Acute Code(s): G35 - Multiple sclerosis (4) Mild persistent asthma: Status: Acute Code(s): J45.30 - Mild persistent asthma, uncomplicated Plan 38-year-old female, history of schizoaffective disorder, direct admission from [facility], where patient had presented with worsening auditory hallucinations and SI. Patient is resident at [facility] for around 10 years. Patient was recently discharged from [facility] where she was admitted on 12/07. She has had several recent admissions to [facility] she was admitted to [facility] inpatient on 10/17/2023 and then again on 11/07/2023. Pt has a [facility] and [facility] order in place, with some information available in the chart, but details around actual medications appears to be missing. Patient states that she received her Haldol Decanoate injection 6 days ago while in [facility]. patient reports today hearing voices telling her to go right to go left. Pt stares blankly at times; appears to be internally preoccupied. She is difficult to engage in interview; she appears anxious. denies SI or HI This curriculum writer spoke to Griselda DONYA, patient's guardian: Her concerns are to try to help Anjali get back to baseline she had 2 years stability while at the long-term. She reports that there have been problems with medication, getting the correct medication on time due to a number of factors difficulty with the rims certification, difficulty with the [facility] not having the correct equipment when her injection was done was due, and after different hospitalizations medication list at discharge was not complete and the residential home was unable to correct her medication list. Griselda wonders if her sister could be placed in a long-term care nursing facility for more consistent care. Hospital course: 12/19/23 continue tx plan, hold haldol deconoate until can verify last given dose from [facility] or [facility], encourage PO intake 12/20/23 cont tx 12/20 pt reports continued incessant AH, however they are only saying things like go straight...go left...go right and no longer saying mean, provoking things. Pt asked for higher Haldol dose saying she was supposed to have it available but it was only started yesterday. She says that until about a month ago, she was doing quite well, but then her medications got changed/missed and since then she's decompensated with AH. She's not sure why her medications were changed. To her recollection she recieved Haldol Dec when she was at [facility] about a week ago. -Pt gave permission to call sister/HCP and gave Griselda's phone number. 12/21 Patient continues to report auditory hallucinations however they are still just giving her directions to follow., go left, go right.. Which she says is an improvement and they are no longer saying nasty things. Patient remains convinced that she received Haldol Decanoate at [facility]; however she accepts the [facility] providers report to this curriculum writer that she did not receive it and agrees to get a now. Collateral: 1.Welder/Installer discussed case with patient's sister Griselda: pt doing well on regimen (clozapine, invega sustenna, Haldol Dec +prn) until this past august when she got dx with MS and was hospitalized during which time Invega held and that and other psych meds accidentally not restarted (or delayed...). AH returned and since then, patients sister has been trying to get proper med regimen restarted (at one pt there was problem with clozapine rems). Reviewed list of meds and will change accordingly (increasing mag-oxide to 500mg which is her outpt dose and helped reduce need for clozapine) 2.Welder/Installer [facility] reports that pt was NOT given Haldol Dec or any other long acting med while there. She did increase her Clozapine to 175mg at 2pm and 275mg at 5pm. 12/22 remains with troubling AH, negative symptoms; continue treatment plan / pt reports that AH remain the same, no less intensity. However, but is much brighter, smiling at times, says she feels ok and has been out of her room attending groups...She agrees that this behavior may signify improvement at least in her mood, if not her ability to ignore voices. -continue current tx regimen -will consider increasing clozapine 6/4 more thought blocking today; AH remain quite debilitating and patient did not attend any groups today, unable to concentrate on very much due to internal preoccupation. Agrees to go up on Clozaril for now -patient reviewed her allergy list and says she has not allergic to trazodone nor she allergic to alpha lipoic acid, FINANCIAL SERVICES AGENT 3 thyroid; also that pork allergy does not cross over to medications. -patient is a candidate for ECT if medication management does not resolve issue as she has refractory psychotic illness and negative symptoms PLAN: CV Q 15 minute checks Clonazepam 1mg qhs . Clozaril 125 mg 14:00 Clozaril 300 mg q.h.s. (used to be on 250mg at home; at [facility] increased to 75) Haldol Decanoate 100 mg received on 12/21 and then q.2 weeks Magnesium oxide 500 mg Q 17:00; for treatment for psychotic symptoms Haldol 5 mg b.i.d. p.r.n. Continue Haldol 10 mg b.i.d. for now given patient is behind on Haldol and suffering from AH; plan will be to taper and eventually DC Invega Sustenna 234 mg Q 30 days- last dose administered 12/06/23 Thyroid 60 mg daily Omeprazole [address] 240mg BID for MS involve guardian in treatment discharge planning with team Patient educated on: diagnosis, medication risk/benefits and therapeutic strategies Informed Consent: understands Reason for continued inpatient stay Substantial Risk for: inability to function Time Spent With Patient Time: Total time managing care of this patient today ____ minutes.
[2023-12-28] MEDS: cloZAPine 100 MG, cloZAPine 25 MG 125 MG PO (14:10)
[2023-12-28] MEDS: clonazePAM 1 MG TABLET PO (17:31)
[2023-12-28 21:00] VITALS: BP 102/57; PULSE 100; RESP 16; TEMP 36.6; O2SAT 95
[2023-12-28] MEDS: cloZAPine 100 MG TABLET 300 MG PO (21:05)
[2023-12-28] MEDS: Magnesium Oxide 400 MG TABLET 500 MG PO (21:05)
[2023-12-28] MEDS: A and D Ointment 56.7 GM TUBE 1 APPL TOPICAL (21:19)
[2023-12-29] MEDS: Thyroid,Pork 30 MG TABLET 60 MG PO (05:56)
--- NOTE | 2023-12-29 06:12 | PC.NURSE ---
Nurse did not give 0630 Prilosec as manufactures state that one should wait at least 2 hours after taking a thyroid medication.
[2023-12-29 08:00] VITALS: BP 96/54; PULSE 84; RESP 16; TEMP 36.4; O2SAT 95
--- NOTE | 2023-12-29 09:32 | P.PNPSI_ITS ---
Subjective Subjective Date of Service: 12/29/23 Reason For Visit: SCHIZOPHRENIA, SI Interim History: Met with patient; discussed with team Patient says she has a little better today than yesterday, not as tired. She also says that the voices are actually a little bit better as well; on further inquiry she said that they talk less which she finds encouraging. Patient went to group today as well. Discussed medication and she agrees to continue with current regimen Mental Status Exam Mental Status Exam Narrative: Pt is alert and oriented; behavior is cooperative, friendly, calm; patient is not in distress; dressed in hospital attire with adequate hygiene; mood is described as little better and affect congruent, more expressive, less more blunted; eye contact appropriate and less blank stare; Speech is still with thought blocking, latency but a little less so; still slowed and soft; still significant psychomotor retardation present; thought process is goal directed and seems organized; Thought content is on tx for AH; denies delusional thinking and none expressed; no SI/no HI. +AH Patients insight and judgment impaired but improved. Diagnostics Vital Signs (24Hr): Vital Signs - 24 hr 12/28/23 21:00 Temperature 98 F Pulse Rate 100 Respiratory Rate 16 Blood Pressure 102/57 L Pulse Oximetry 95 Oxygen Delivery Method Room Air BMI result Body Mass Index 31.4 Medications Medications Current Medications Acetaminophen (Acetaminophen 325 Mg Tablet) 650 mg PO Q6H PRN PRN Reason: Headache/Pain Mild Scale (1-3) Last Admin: 12/22/23 21:25 Dose: 650 mg Al Hydroxide/Mg Hydroxide (Magnesium Hydrox/Alum Hydrox 30 Ml Oral.Susp) 30 ml PO Q6H PRN PRN Reason: Heartburn/Nausea Albuterol Sulfate (Albuterol Sulfate 90 Mcg 8 Gm Inhaler) 2 puff INHALE RQ4H PRN PRN Reason: Shortness of Breath Last Admin: 12/27/23 20:28 Dose: 2 puff Benztropine Mesylate (Benztropine Mesylate 1 Mg Tablet) 1 mg PO BID [facility] Last Admin: 12/28/23 21:09 Dose: 1 mg Clonazepam (Clonazepam 0.5 Mg Tablet) 0.5 mg PO BID PRN PRN Reason: Anxiety Last Admin: 12/21/23 19:57 Dose: 0.5 mg Clonazepam (Clonazepam 1 Mg Tablet) 1 mg PO DAILY@1700 [facility] Last Admin: 12/28/23 17:31 Dose: 1 mg Clozapine 100 mg/ Clozapine 25 (mg) 125 mg PO 1400 [facility] Last Admin: 12/28/23 14:10 Dose: 125 mg Clozapine (Clozapine 100 Mg Tablet) 300 mg PO BEDTIME [facility] Last Admin: 12/28/23 21:05 Dose: 300 mg Docusate Sodium (Docusate Sodium 100 Mg Capsule) 100 mg PO BID [facility] Last Admin: 12/28/23 21:09 Dose: 100 mg Fluticasone Propionate (Fluticasone Propionate Nasal 16 Gm [place]) 1 spray NOSTRIL-B DAILY PRN PRN Reason: nasal congestion Folic Acid (Folic Acid 1 Mg Tablet) 1 mg PO DAILY [facility] Last Admin: 12/28/23 09:05 Dose: 1 mg Haloperidol Decanoate (Haloperidol Decanoate 50 Mg/Ml Vial) 100 mg IM Q14D [facility] Last Admin: 12/22/23 14:45 Dose: 100 mg Haloperidol Lactate (Haloperidol Lactate Oral Conc 10 Mg/5 Ml Oral.Conc) 5 mg PO BID PRN PRN Reason: agitation Last Admin: 12/21/23 13:51 Dose: 5 mg Haloperidol Lactate (Haloperidol Lactate Oral Conc 10 Mg/5 Ml Oral.Conc) 10 mg PO BID [facility] Last Admin: 12/28/23 21:17 Dose: 10 mg Hydroxyzine HCl (Hydroxyzine Hcl 25 Mg Tablet) 25 mg PO Q6H PRN PRN Reason: Anxiety Last Admin: 12/25/23 14:46 Dose: 25 mg Loratadine (Loratadine 10 Mg Tablet) 10 mg PO DAILY [facility] Last Admin: 12/28/23 09:05 Dose: 10 mg Magnesium Hydroxide (Milk Of Magnesia 30 Ml Oral.Susp) 30 ml PO DAILY PRN PRN Reason: Constipation Magnesium Oxide (Magnesium Oxide 400 Mg Tablet) 500 mg PO BEDTIME [facility] Last Admin: 12/28/23 21:05 Dose: 500 mg Multivitamins/Vitamin C (Multivitamin Tablet) 1 tab PO DAILY [facility] Last Admin: 12/28/23 09:05 Dose: 1 tab Patient Own ( (Tecfidera Dr 240 Mg)) 240 mg PO BID [facility] Last Admin: 12/28/23 21:20 Dose: 240 mg Omeprazole (Omeprazole 20 Mg Capsule.Dr) 20 mg PO DAILY@0630 [facility] Last Admin: 12/28/23 07:18 Dose: 20 mg Paliperidone Palmitate (Paliperidone Palmitate 234 Mg/1.5 Ml Syringe) 234 mg IM Q30D [facility] Polyethylene Glycol (Polyethylene Glycol 3350 17 Gm Powd.Pack) 17 gm PO DAILY PRN PRN Reason: ongoing Constipation Propranolol HCl (Propranolol Hcl 10 Mg Tablet) 10 mg PO BID [facility]; Protocol Last Admin: 12/28/23 21:06 Dose: 10 mg Thyroid (Thyroid,Pork 30 Mg Tablet) 60 mg PO DAILY@0600 [facility] Last Admin: 12/29/23 05:56 Dose: 60 mg Vitamin A/Vitamin D (A And D Ointment 56.7 Gm Tube) 1 appl TOPICAL BID [facility]; Protocol Last Admin: 12/28/23 21:19 Dose: 1 appl Allergies Allergies Allergy/AdvReac Type Severity Reaction Status Date / Time Pork/Porcine Containing Allergy Unknown RASH Verified 12/28/23 14:54 Products [PORK/PORCINE CONTAINING PRODUCTS] ALPHA LIPOIC ACID Allergy Unknown Uncoded 10/17/23 02:24 TITLE MANAGER-3 THYROID TOXICITY Allergy Unknown Uncoded 10/17/23 02:24 Assessment & Plan Assessment & Plan (1) Schizoaffective disorder: Qualifiers: Schizoaffective disorder type: depressive Qualified Code(s): F25.1 - Schizoaffective disorder, depressive type Status: Acute Code(s): F25.9 - Schizoaffective disorder, unspecified (2) PTSD (post-traumatic stress disorder): Status: Acute Code(s): F43.10 - Post-traumatic stress disorder, unspecified (3) Multiple sclerosis: Status: Acute Code(s): G35 - Multiple sclerosis (4) Mild persistent asthma: Status: Acute Code(s): J45.30 - Mild persistent asthma, uncomplicated Plan 38-year-old female, history of schizoaffective disorder, direct admission from [facility], where patient had presented with worsening auditory hallucinations and SI. Patient is resident at [facility] for around 10 years. Patient was recently discharged from [facility] where she was admitted on 12/07. She has had several recent admissions to [facility] she was admitted to [facility] inpatient on 10/17/2023 and then again on 11/07/2023. Pt has a [facility] and [facility] order in place, with some information available in the chart, but details around actual medications appears to be missing. Patient states that she received her Haldol Decanoate injection 6 days ago while in [facility]. patient reports today hearing voices telling her to go right to go left. Pt stares blankly at times; appears to be internally preoccupied. She is difficult to engage in interview; she appears anxious. denies SI or HI This sba underwriter spoke to Griselda DONYA, patient's guardian: Her concerns are to try to help Anjali get back to baseline she had 2 years stability while at the detention. She reports that there have been problems with medication, getting the correct medication on time due to a number of factors difficulty with the rims certification, difficulty with the VNA not having the correct equipment when her injection was done was due, and after different hospitalizations medication list at discharge was not complete and the residential home was unable to correct her medication list. Griselda wonders if her sister could be placed in a long-term care nursing facility for more consistent care. Hospital course: 12/19/23 continue tx plan, hold haldol deconoate until can verify last given dose from [facility]NA or [facility], encourage PO intake 12/20/23 cont tx 12/20 pt reports continued incessant AH, however they are only saying things like go straight...go left...go right and no longer saying mean, provoking things. Pt asked for higher Haldol dose saying she was supposed to have it available but it was only started yesterday. She says that until about a month ago, she was doing quite well, but then her medications got changed/missed and since then she's decompensated with AH. She's not sure why her medications were changed. To her recollection she recieved Haldol Dec when she was at [facility] about a week ago. -Pt gave permission to call sister/HCP and gave Griselda's phone number. 12/21 Patient continues to report auditory hallucinations however they are still just giving her directions to follow., go left, go right.. Which she says is an improvement and they are no longer saying nasty things. Patient remains convinced that she received Haldol Decanoate at [facility]; however she accepts the [facility] providers report to this sba underwriter that she did not receive it and agrees to get a now. Collateral: 1.Side Boss discussed case with patient's sister Griselda: pt doing well on regimen (clozapine, invega sustenna, Haldol Dec +prn) until this past august when she got dx with MS and was hospitalized during which time Invega held and that and other psych meds accidentally not restarted (or delayed...). AH returned and since then, patients sister has been trying to get proper med regimen restarted (at one pt there was problem with clozapine rems). Reviewed list of meds and will change accordingly (increasing mag-oxide to 500mg which is her outpt dose and helped reduce need for clozapine) 2.Side Boss discussed case with psychiatric PA at [facility] who reports that pt was NOT given Haldol Dec or any other long acting med while there. She did increase her Clozapine to 175mg at 2pm and 275mg at 5pm. 12/22 remains with troubling AH, negative symptoms; continue treatment plan 12/26 pt reports that AH remain the same, no less intensity. However, but is much brighter, smiling at times, says she feels ok and has been out of her room attending groups...She agrees that this behavior may signify improvement at least in her mood, if not her ability to ignore voices. -continue current tx regimen -will consider increasing clozapine 6/ more thought blocking today; AH remain quite debilitating and patient did not attend any groups today, unable to concentrate on very much due to internal preoccupation. Agrees to go up on Clozaril for now -patient reviewed her allergy list and says she has not allergic to trazodone nor she allergic to alpha lipoic acid, TITLE MANAGER 3 thyroid; also that pork allergy does not cross over to medications. -patient is a candidate for ECT if medication management does not resolve issue as she has refractory psychotic illness and negative symptoms 12/28 1st time patient said voices are little better, talking a little less; continue current treatment plan PLAN: CV Q 15 minute checks Clonazepam 1mg qhs . Clozaril 125 mg 14:00 Clozaril 300 mg q.h.s. (used to be on 250mg at home; at [facility] increased to 75) Haldol Decanoate 100 mg received on 12/21 and then q.2 weeks Magnesium oxide 500 mg Q 17:00; for treatment for psychotic symptoms Haldol 5 mg b.i.d. p.r.n. Continue Haldol 10 mg b.i.d. for now given patient is behind on Haldol and suffering from AH; plan will be to taper and eventually DC Invega Sustenna 234 mg Q 30 days- last dose administered 12/06/23 Thyroid 60 mg daily Omeprazole [address] 240mg BID for MS involve guardian in treatment discharge planning with team Patient educated on: diagnosis and medication risk/benefits Informed Consent: understands Reason for continued inpatient stay Substantial Risk for: inability to function Time Spent With Patient Time: Total time managing care of this patient today ____ minutes.
[2023-12-29] MEDS: Multivitamin TABLET 1 TAB PO (10:08)
[2023-12-29] MEDS: Benztropine Mesylate 1 MG TABLET PO ×2 (10:08→20:51)
[2023-12-29] MEDS: Haloperidol Lactate Oral Conc 10 MG/5 ML ORAL.CONC PO ×2 (10:08→20:51)
[2023-12-29] MEDS: Folic Acid 1 MG TABLET PO (10:08)
[2023-12-29] MEDS: Omeprazole 20 MG CAPSULE.DR PO (10:08)
[2023-12-29] MEDS: Propranolol HCL 10 MG TABLET PO ×2 (10:09→20:53)
[2023-12-29] MEDS: Docusate Sodium 100 MG CAPSULE PO ×2 (10:09→20:53)
[2023-12-29] MEDS: Loratadine 10 MG TABLET PO (10:09)
[2023-12-29] MEDS: cloZAPine 100 MG, cloZAPine 25 MG 125 MG PO (15:08)
[2023-12-29] MEDS: clonazePAM 1 MG TABLET PO (17:09)
[2023-12-29 19:40] VITALS: BP 127/72; PULSE 108; RESP 18; TEMP 36.5; O2SAT 98
[2023-12-29] MEDS: cloZAPine 100 MG TABLET 300 MG PO (20:51)
[2023-12-29] MEDS: Magnesium Oxide 400 MG TABLET 500 MG PO (20:52)
[2023-12-29 20:53] VITALS: BP 127/72; PULSE 108
[2023-12-29] MEDS: A and D Ointment 56.7 GM TUBE 1 APPL TOPICAL (21:39)
[2023-12-30] MEDS: Thyroid,Pork 30 MG TABLET 60 MG PO (06:25)
[2023-12-30] MEDS: Omeprazole 20 MG CAPSULE.DR PO (06:25)
[2023-12-30 08:00] VITALS: BP 100/60; PULSE 78; RESP 16; TEMP 36.3; O2SAT 99
--- NOTE | 2023-12-30 08:23 | P.PNPSI_ITS ---
Subjective Subjective Date of Service: 12/30/23 Reason For Visit: SCHIZOPHRENIA, SI Interim History: Met with patient; discussed with team Patient reports that AH remains the same as yesterday, a little less talkative overall but still quite problematic, evidenced by her continued isolation, significant psychomotor retardation, speech latency; discussed speech latency and patient said she is just very distracted by the voices. Discussed medications and she agreed to go up on Clozaril. Mental Status Exam Mental Status Exam Narrative: Pt is alert and oriented; behavior is cooperative, friendly, isolative, quiet; patient is not in distress; dressed in hospital attire with adequate hygiene; mood is described as ok and affect congruent, more expressive, less more blunted; eye contact appropriate and less of a blank stare; Speech is still with thought blocking, latency but a little less so; still slowed and soft; still significant psychomotor retardation present; thought process is goal directed and seems organized; Thought content is on tx for AH; denies delusional thinking and none expressed; no SI/no HI. +AH Patients insight and judgment impaired but improved. Diagnostics Vital Signs (24Hr): Vital Signs - 24 hr 12/29/23 19:40 12/29/23 20:53 Temperature 97.7 F Pulse Rate 108 H 108 H Respiratory Rate 18 Blood Pressure 127/72 127/72 Pulse Oximetry 98 Oxygen Delivery Method Room Air BMI result Body Mass Index 31.4 Medications Medications Current Medications Acetaminophen (Acetaminophen 325 Mg Tablet) 650 mg PO Q6H PRN PRN Reason: Headache/Pain Mild Scale (1-3) Last Admin: 12/22/23 21:25 Dose: 650 mg Al Hydroxide/Mg Hydroxide (Magnesium Hydrox/Alum Hydrox 30 Ml Oral.Susp) 30 ml PO Q6H PRN PRN Reason: Heartburn/Nausea Albuterol Sulfate (Albuterol Sulfate 90 Mcg 8 Gm Inhaler) 2 puff INHALE RQ4H PRN PRN Reason: Shortness of Breath Last Admin: 12/27/23 20:28 Dose: 2 puff Benztropine Mesylate (Benztropine Mesylate 1 Mg Tablet) 1 mg PO BID LEW Last Admin: 12/29/23 20:51 Dose: 1 mg Clonazepam (Clonazepam 0.5 Mg Tablet) 0.5 mg PO BID PRN PRN Reason: Anxiety Last Admin: 12/21/23 19:57 Dose: 0.5 mg Clonazepam (Clonazepam 1 Mg Tablet) 1 mg PO DAILY@1700 [facility] Last Admin: 12/29/23 17:09 Dose: 1 mg Clozapine 100 mg/ Clozapine 25 (mg) 125 mg PO 1400 [facility] Last Admin: 12/29/23 15:08 Dose: 125 mg Clozapine (Clozapine 100 Mg Tablet) 300 mg PO BEDTIME [facility] Last Admin: 12/29/23 20:51 Dose: 300 mg Docusate Sodium (Docusate Sodium 100 Mg Capsule) 100 mg PO BID [facility] Last Admin: 12/29/23 20:53 Dose: 100 mg Fluticasone Propionate (Fluticasone Propionate Nasal 16 Gm Galvin) 1 spray NOSTRIL-B DAILY PRN PRN Reason: nasal congestion Folic Acid (Folic Acid 1 Mg Tablet) 1 mg PO DAILY [facility] Last Admin: 12/29/23 10:08 Dose: 1 mg Haloperidol Decanoate (Haloperidol Decanoate 50 Mg/Ml Vial) 100 mg IM Q14D [facility] Last Admin: 12/22/23 14:45 Dose: 100 mg Haloperidol Lactate (Haloperidol Lactate Oral Conc 10 Mg/5 Ml Oral.Conc) 5 mg PO BID PRN PRN Reason: agitation Last Admin: 12/21/23 13:51 Dose: 5 mg Haloperidol Lactate (Haloperidol Lactate Oral Conc 10 Mg/5 Ml Oral.Conc) 10 mg PO BID [facility] Last Admin: 12/29/23 20:51 Dose: 10 mg Hydroxyzine HCl (Hydroxyzine Hcl 25 Mg Tablet) 25 mg PO Q6H PRN PRN Reason: Anxiety Last Admin: 12/25/23 14:46 Dose: 25 mg Loratadine (Loratadine 10 Mg Tablet) 10 mg PO DAILY [facility] Last Admin: 12/29/23 10:09 Dose: 10 mg Magnesium Hydroxide (Milk Of Magnesia 30 Ml Oral.Susp) 30 ml PO DAILY PRN PRN Reason: Constipation Magnesium Oxide (Magnesium Oxide 400 Mg Tablet) 500 mg PO BEDTIME [facility] Last Admin: 12/29/23 20:52 Dose: 500 mg Multivitamins/Vitamin C (Multivitamin Tablet) 1 tab PO DAILY [facility] Last Admin: 12/29/23 10:08 Dose: 1 tab Patient Own ( (Tecfidera Dr 240 Mg)) 240 mg PO BID [facility] Last Admin: 12/29/23 21:39 Dose: 240 mg Omeprazole (Omeprazole 20 Mg Capsule.Dr) 20 mg PO DAILY@0630 [facility] Last Admin: 12/30/23 06:25 Dose: 20 mg Paliperidone Palmitate (Paliperidone Palmitate 234 Mg/1.5 Ml Syringe) 234 mg IM Q30D [facility] Polyethylene Glycol (Polyethylene Glycol 3350 17 Gm Powd.Pack) 17 gm PO DAILY PRN PRN Reason: ongoing Constipation Propranolol HCl (Propranolol Hcl 10 Mg Tablet) 10 mg PO BID [facility]; Protocol Last Admin: 12/29/23 20:53 Dose: 10 mg Thyroid (Thyroid,Pork 30 Mg Tablet) 60 mg PO DAILY@0600 [facility] Last Admin: 12/30/23 06:25 Dose: 60 mg Vitamin A/Vitamin D (A And D Ointment 56.7 Gm Tube) 1 appl TOPICAL BID [facility]; Protocol Last Admin: 12/29/23 21:39 Dose: 1 appl Allergies Allergies Allergy/AdvReac Type Severity Reaction Status Date / Time Pork/Porcine Containing Allergy Unknown RASH Verified 12/28/23 14:54 Products [PORK/PORCINE CONTAINING PRODUCTS] ALPHA LIPOIC ACID Allergy Unknown Uncoded 10/17/23 02:24 ESCROW MANAGER-3 THYROID TOXICITY Allergy Unknown Uncoded 10/17/23 02:24 Assessment & Plan Assessment & Plan (1) Schizoaffective disorder: Qualifiers: Schizoaffective disorder type: depressive Qualified Code(s): F25.1 - Schizoaffective disorder, depressive type Status: Acute Code(s): F25.9 - Schizoaffective disorder, unspecified (2) PTSD (post-traumatic stress disorder): Status: Acute Code(s): F43.10 - Post-traumatic stress disorder, unspecified (3) Multiple sclerosis: Status: Acute Code(s): G35 - Multiple sclerosis (4) Mild persistent asthma: Status: Acute Code(s): J45.30 - Mild persistent asthma, uncomplicated Plan 38-year-old female, history of schizoaffective disorder, direct admission from [facility], where patient had presented with worsening auditory hallucinations and SI. Patient is resident at [facility] for around 10 years. Patient was recently discharged from [facility] where she was admitted on 12/07. She has had several recent admissions to [facility] she was admitted to [facility] [place] on 10/17/2023 and then again on 11/07/2023. Pt has a [facility] order in place, with some information available in the chart, but details around actual medications appears to be missing. Patient states that she received her Haldol Decanoate injection 6 days ago while in [facility]. patient reports today hearing voices telling her to go right to go left. Pt stares blankly at times; appears to be internally preoccupied. She is difficult to engage in interview; she appears anxious. denies SI or HI This account underwriter spoke to Griselda NAQVI, patient's guardian: Her concerns are to try to help Anjali get back to baseline she had 2 years stability [facility] at the [facility]. She reports that there have been problems with medication, getting the correct medication on time due to a number of factors difficulty with the rims certification, difficulty with the [facility] not having the correct equipment when her injection was done was due, and after different hospitalizations medication list at discharge was not complete and the residential home was unable to correct her medication list. Griselda wonders if her sister could be placed in a long-term care nursing facility for more consistent care. Hospital course: 12/19/23 continue tx plan, hold haldol deconoate until can verify last given dose from [facility] or [facility], encourage PO intake 12/20/23 cont tx 12/20 pt reports continued incessant AH, however they are only saying things like go straight...go left...go right and no longer saying mean, provoking things. Pt asked for higher Haldol dose saying she was supposed to have it available but it was only started yesterday. She says that until about a month ago, she was doing quite well, but then her medications got changed/missed and since then she's decompensated with AH. She's not sure why her medications were changed. To her recollection she recieved Haldol Dec when she was at [facility] about a week ago. -Pt gave permission to call sister/HCP and gave Griselda's phone number. 12/21 Patient continues to report auditory hallucinations however they are still just giving her directions to follow., go left, go right.. Which she says is an improvement and they are no longer saying nasty things. Patient remains con vinced that she received Haldol Decanoate at [facility]; however she accepts the [facility] providers report to this account underwriter that she did not receive it and agrees to get a now. Collateral: 1.Bottle Packing Machine Cleaner discussed case with patient's sister Griselda: pt doing well on regimen (clozapine, invega sustenna, Haldol Dec +prn) until this past august when she got dx with MS and was hospitalized during which time Invega held and that and other psych meds accidentally not restarted (or delayed...). AH returned and since then, patients sister has been trying to get proper med regimen restarted (at one pt there was problem with clozapine rems). Reviewed list of meds and will change accordingly (increasing mag-oxide to 500mg which is her outpt dose and helped reduce need for clozapine) 2.Bottle Packing Machine Cleaner [facility] reports that pt was NOT given Haldol Dec or any other long acting med while there. She did increase her Clozapine to 175mg at 2pm and 275mg at 5pm. 12/22 remains with troubling AH, negative symptoms; continue treatment plan 12/26 pt reports that AH remain the same, no less intensity. However, but is much brighter, smiling at times, says she feels ok and has been out of her room attending groups...She agrees that this behavior may signify improvement at least in her mood, if not her ability to ignore voices. -continue current tx regimen -will consider increasing clozapine 6/ more thought blocking today; AH remain quite debilitating and patient did not attend any groups today, unable to concentrate on very much due to internal preoccupation. Agrees to go up on Clozaril for now -patient reviewed her allergy list and says she has not allergic to trazodone nor she allergic to alpha lipoic acid, ESCROW MANAGER 3 thyroid; also that pork allergy does not cross over to medications. -patient is a candidate for ECT if medication management does not resolve issue as she has refractory psychotic illness and negative symptoms 12/28 1st time patient said voices are little better, talking a little less; continue current treatment plan 12/29 mild improvements, patient showered, AH remains a little less talkative overall but still quite problematic, evidenced by her continued isolation, significant psychomotor retardation, speech latency; discussed speech latency and patient said she is just very distracted by the voices. Discussed medications and she agreed to go up on Clozaril. PLAN: CV Q 15 minute checks Clonazepam 1mg qhs . Clozaril 125 mg 14:00 INCREASED TO Clozaril 325 mg q.h.s. (used to be on 250mg at home; at [facility] increased 275) Haldol Decanoate 100 mg received on 12/21 and then q.2 weeks Magnesium oxide 500 mg Q 17:00; for treatment for psychotic symptoms Haldol 5 mg b.i.d. p.r.n. Continue Haldol 10 mg b.i.d. for now given patient is behind on Haldol and suffering from AH; plan will be to taper and eventually DC Invega Sustenna 234 mg Q 30 days- last dose administered 12/06/23 Thyroid 60 mg daily Omeprazole [address] 240mg BID for MS involve guardian in treatment discharge planning with team Patient educated on: diagnosis and medication risk/benefits Informed Consent: understands Reason for continued inpatient stay Substantial Risk for: inability to function Time Spent With Patient Time: Total time managing care of this patient today ____ minutes.
[2023-12-30] MEDS: Benztropine Mesylate 1 MG TABLET PO ×2 (09:02→20:47)
[2023-12-30] MEDS: Haloperidol Lactate Oral Conc 10 MG/5 ML ORAL.CONC PO ×2 (09:02→20:45)
[2023-12-30] MEDS: Docusate Sodium 100 MG CAPSULE PO ×2 (09:02→20:45)
[2023-12-30] MEDS: Loratadine 10 MG TABLET PO (09:02)
[2023-12-30] MEDS: Folic Acid 1 MG TABLET PO (09:02)
[2023-12-30] MEDS: Multivitamin TABLET 1 TAB PO (09:02)
[2023-12-30] MEDS: Propranolol HCL 10 MG TABLET PO ×2 (09:02→20:49)
[2023-12-30] MEDS: cloZAPine 100 MG, cloZAPine 25 MG 125 MG PO (15:00)
[2023-12-30] MEDS: clonazePAM 1 MG TABLET PO (16:14)
[2023-12-30 20:00] VITALS: BP 136/93; PULSE 120; RESP 18
[2023-12-30] MEDS: Magnesium Oxide 400 MG TABLET 500 MG PO (20:46)
[2023-12-30] MEDS: A and D Ointment 56.7 GM TUBE 1 APPL TOPICAL (20:48)
[2023-12-30 20:49] VITALS: BP 136/93; PULSE 120
[2023-12-30] MEDS: cloZAPine 25 MG TABLET 325 MG PO (20:49)
[2023-12-30] MEDS: Haloperidol Lactate Oral Conc 10 MG/5 ML ORAL.CONC 5 MG PO (22:13)
--- NOTE | 2023-12-31 05:44 | PC.NURSE ---
approached pt w/ 6am scheduled medication, pt refused to wake, will re-attempt
[2023-12-31 08:00] VITALS: BP 113/64; PULSE 81; RESP 16; TEMP 36.4; O2SAT 98
--- NOTE | 2023-12-31 08:25 | HO.PSYCHPN ---
Subjective Subjective Date of Service: 12/31/23 Reason For Visit: SCHIZOPHRENIA, SI Interim History: Met with patient; discussed with team Patient feeling extra tired this morning which she agrees is likely from last night's increased Clozaril. Not much has changed, voices remain quite problematic though less over the past couple days. She agrees to continue at this current new dose and see how things go. Will get labs Mental Status Exam Mental Status Exam Narrative: Pt is alert and oriented; behavior is cooperative, friendly, isolative, quiet; patient is not in distress; dressed in hospital attire with adequate hygiene; mood is described as ok and affect congruent, more expressive, less more blunted; eye contact appropriate and less of a blank stare; Speech is still with thought blocking, latency but a little less so; still slowed and soft; still significant psychomotor retardation present; thought process is goal directed and seems organized; Thought content is on tx for AH; denies delusional thinking and none expressed; no SI/no HI. +AH Patients insight and judgment impaired but improved. Diagnostics Vital Signs (24Hr): Vital Signs - 24 hr 12/30/23 20:00 12/30/23 20:49 Pulse Rate 120 H 120 H Respiratory Rate 18 Blood Pressure 136/93 H 136/93 H Oxygen Delivery Method Room Air BMI result Body Mass Index 31.4 Medications Medications Current Medications Acetaminophen (Acetaminophen 325 Mg Tablet) 650 mg PO Q6H PRN PRN Reason: Headache/Pain Mild Scale (1-3) Last Admin: 12/22/23 21:25 Dose: 650 mg Al Hydroxide/Mg Hydroxide (Magnesium Hydrox/Alum Hydrox 30 Ml Oral.Susp) 30 ml PO Q6H PRN PRN Reason: Heartburn/Nausea Albuterol Sulfate (Albuterol Sulfate 90 Mcg 8 Gm Inhaler) 2 puff INHALE RQ4H PRN PRN Reason: Shortness of Breath Last Admin: 12/27/23 20:28 Dose: 2 puff Benztropine Mesylate (Benztropine Mesylate 1 Mg Tablet) 1 mg PO BID [facility] Last Admin: 12/30/23 20:47 Dose: 1 mg Clonazepam (Clonazepam 0.5 Mg Tablet) 0.5 mg PO BID PRN PRN Reason: Anxiety Last Admin: 12/21/23 19:57 Dose: 0.5 mg Clonazepam (Clonazepam 1 Mg Tablet) 1 mg PO DAILY@1700 [facility] Last Admin: 12/30/23 16:14 Dose: 1 mg Clozapine 100 mg/ Clozapine 25 (mg) 125 mg PO 1400 [facility] Last Admin: 12/30/23 15:00 Dose: 125 mg Clozapine (Clozapine 25 Mg Tablet) 325 mg PO BEDTIME [facility] Last Admin: 12/30/23 20:49 Dose: 325 mg Docusate Sodium (Docusate Sodium 100 Mg Capsule) 100 mg PO BID [facility] Last Admin: 12/30/23 20:45 Dose: 100 mg Fluticasone Propionate (Fluticasone Propionate Nasal 16 Gm [place]) 1 spray NOSTRIL-B DAILY PRN PRN Reason: nasal congestion Folic Acid (Folic Acid 1 Mg Tablet) 1 mg PO DAILY [facility] Last Admin: 12/30/23 09:02 Dose: 1 mg Haloperidol Decanoate (Haloperidol Decanoate 50 Mg/Ml Vial) 100 mg IM Q14D [facility] Last Admin: 12/22/23 14:45 Dose: 100 mg Haloperidol Lactate (Haloperidol Lactate Oral Conc 10 Mg/5 Ml Oral.Conc) 5 mg PO BID PRN PRN Reason: agitation Last Admin: 12/30/23 22:13 Dose: 5 mg Haloperidol Lactate (Haloperidol Lactate Oral Conc 10 Mg/5 Ml Oral.Conc) 10 mg PO BID [facility] Last Admin: 12/30/23 20:45 Dose: 10 mg Hydroxyzine HCl (Hydroxyzine Hcl 25 Mg Tablet) 25 mg PO Q6H PRN PRN Reason: Anxiety Last Admin: 12/25/23 14:46 Dose: 25 mg Loratadine (Loratadine 10 Mg Tablet) 10 mg PO DAILY [facility] Last Admin: 12/30/23 09:02 Dose: 10 mg Magnesium Hydroxide (Milk Of Magnesia 30 Ml Oral.Susp) 30 ml PO DAILY PRN PRN Reason: Constipation Magnesium Oxide (Magnesium Oxide 400 Mg Tablet) 500 mg PO BEDTIME [facility] Last Admin: 12/30/23 20:46 Dose: 500 mg Multivitamins/Vitamin C (Multivitamin Tablet) 1 tab PO DAILY [facility] Last Admin: 12/30/23 09:02 Dose: 1 tab Patient Own ( (Tecfidera Dr 240 Mg)) 240 mg PO BID [facility] Last Admin: 12/30/23 20:47 Dose: 240 mg Omeprazole (Omeprazole 20 Mg Capsule.Dr) 20 mg PO DAILY@0630 [facility] Last Admin: 12/30/23 06:25 Dose: 20 mg Paliperidone Palmitate (Paliperidone Palmitate 234 Mg/1.5 Ml Syringe) 234 mg IM Q30D [facility] Polyethylene Glycol (Polyethylene Glycol 3350 17 Gm Powd.Pack) 17 gm PO DAILY PRN PRN Reason: ongoing Constipation Propranolol HCl (Propranolol Hcl 10 Mg Tablet) 10 mg PO BID [facility]; Protocol Last Admin: 12/30/23 20:49 Dose: 10 mg Thyroid (Thyroid,Pork 30 Mg Tablet) 60 mg PO DAILY@0600 [facility] Last Admin: 12/30/23 06:25 Dose: 60 mg Vitamin A/Vitamin D (A And D Ointment 56.7 Gm Tube) 1 appl TOPICAL BID [facility]; Protocol Last Admin: 12/30/23 20:48 Dose: 1 appl Allergies Allergies Allergy/AdvReac Type Severity Reaction Status Date / Time Pork/Porcine Containing Allergy Unknown RASH Verified 12/28/23 14:54 Products [PORK/PORCINE CONTAINING PRODUCTS] ALPHA LIPOIC ACID Allergy Unknown Uncoded 10/17/23 02:24 [employer]-3 THYROID TOXICITY Allergy Unknown Uncoded 10/17/23 02:24 Assessment & Plan Assessment & Plan (1) Schizoaffective disorder: Qualifiers: Schizoaffective disorder type: depressive Qualified Code(s): F25.1 - Schizoaffective disorder, depressive type Status: Acute Code(s): F25.9 - Schizoaffective disorder, unspecified (2) PTSD (post-traumatic stress disorder): Status: Acute Code(s): F43.10 - Post-traumatic stress disorder, unspecified (3) Multiple sclerosis: Status: Acute Code(s): G35 - Multiple sclerosis (4) Mild persistent asthma: Status: Acute Code(s): J45.30 - Mild persistent asthma, uncomplicated Plan 38-year-old female, history of schizoaffective disorder, direct admission from [facility], where patient had presented with worsening auditory hallucinations and SI. Patient is resident at [facility] for around 10 years. Patient was recently discharged from [facility] where she was admitted on 12/07. She has had several recent admissions to [facility] she was admitted to [facility] inpatient on 10/17/2023 and then again on 11/07/2023. Pt has [facility] order in place, with some information available in the chart, but details around actual medications appears to be missing. Patient states that she received her Haldol Decanoate injection 6 days ago while in [facility]. patient reports today hearing voices telling her to go right to go left. Pt stares blankly at times; appears to be internally preoccupied. She is difficult to engage in interview; she appears anxious. denies SI or HI This telegraphic typewriter operator spoke to Griselda DONYA, patient's guardian: Her concerns are to try to help Anjali get back to baseline she had 2 years stability [facility]. She reports that there have been problems with medication, getting the correct medication on time due to a number of factors difficulty with the rims certification, difficulty with the [facility] not having the correct equipment when her injection was done was due, and after different hospitalizations medication list at discharge was not complete and the residential home was unable to correct her medication list. Griselda wonders if her sister could be placed in a long-term care nursing facility for more consistent care. Hospital course: 12/19/23 continue tx plan, hold haldol deconoate until can verify last given dose from [facility] or [facility], encourage PO intake 12/20/23 cont tx 12/20 pt reports continued incessant AH, however they are only saying things like go straight...go left...go right and no longer saying mean, provoking things. Pt asked for higher Haldol dose saying she was supposed to have it available but it was only started yesterday. She says that until about a month ago, she was doing quite well, but then her medications got changed/missed and since then she's decompensated with AH. She's not sure why her medications were changed. To her recollection she recieved Haldol Dec when she was at [facility] about a week ago. -Pt gave permission to call sister/HCP and gave Griselda's phone number. 12/21 Patient continues to report auditory hallucinations however they are still just giving her directions to follow., go left, go right.. Which she says is an improvement and they are no longer saying nasty things. Patient remains convinced that she received Haldol Decanoate at [facility]; however she accepts the [facility] providers report to this telegraphic typewriter operator that she did not receive it and agrees to get a now. Collateral: 1.Branch Lending Officer discussed case with patient's sister Griselda: pt doing well on regimen (clozapine, invega sustenna, Haldol Dec +prn) until this past august when she got dx with MS and was hospitalized during which time Invega held and that and other psych meds accidentally not restarted (or delayed...). AH returned and since then, patients sister has been trying to get proper med regimen restarted (at one pt there was problem with clozapine rems). Reviewed list of meds and will change accordingly (increasing mag-oxide to 500mg which is her outpt dose and helped reduce need for clozapine) 2.Branch Lending Officer discussed case with psychiatric PA at [facility] who reports that pt was NOT given Haldol Dec or any other long acting med while there. She did increase her Clozapine to 175mg at 2pm and 275mg at 5pm. 12/22 remains with troubling AH, negative symptoms; continue treatment plan 12/26 pt reports that AH remain the same, no less intensity. However, but is much brighter, smiling at times, says she feels ok and has been out of her room attending groups...She agrees that this behavior may signify improvement at least in her mood, if not her ability to ignore voices. -continue current tx regimen -will consider increasing clozapine 12/27 more thought blocking today; AH remain quite debilitating and patient did not attend any groups today, unable to concentrate on very much due to internal preoccupation. Agrees to go up on Clozaril for now -patient reviewed her allergy list and says she has not allergic to trazodone nor she allergic to alpha lipoic acid, [employer] 3 thyroid; also that pork allergy does not cross over to medications. -patient is a candidate for ECT if medication management does not resolve issue as she has refractory psychotic illness and negative symptoms 12/28 1st time patient said voices are little better, talking a little less; continue current treatment plan 12/29 mild improvements, patient showered, AH remains a little less talkative overall but still quite problematic, evidenced by her continued isolation, significant psychomotor retardation, speech latency; discussed speech latency and patient said she is just very distracted by the voices. Discussed medications and she agreed to go up on Clozaril. 12/30 Patient feeling extra tired this morning which she agrees is likely from last night's increased Clozaril. Not much has changed, voices remain quite problematic though less over the past couple days. She agrees to continue at this current new dose and see how things go. Will get labs PLAN: CV Q 15 minute checks Clonazepam 1mg qhs . Clozaril 125 mg 14:00 INCREASED TO Clozaril 325 mg q.h.s. (used to be on 250mg at home; at [facility] increased 275) Haldol Decanoate 100 mg received on 12/21 and then q.2 weeks Magnesium oxide 500 mg Q 17:00; for treatment for psychotic symptoms Haldol 5 mg b.i.d. p.r.n. Continue Haldol 10 mg b.i.d. for now given patient is behind on Haldol and suffering from AH; plan will be to taper and eventually DC Invega Sustenna 234 mg Q 30 days- last dose administered 12/06/23 Thyroid 60 mg daily Omeprazole [address] 240mg BID for MS involve guardian in treatment discharge planning with team Patient educated on: diagnosis and medication risk/benefits Informed Consent: understands Reason for continued inpatient stay Substantial Risk for: inability to function Time Spent With Patient Time: Total time managing care of this patient today ____ minutes.
[2023-12-31 08:33] LABS: Neut%MD 61.7 %; Neutrophils Absolute Auto 4.4 x10*3/uL (2.0-8.3); WBCANC 7.2 X10*3/uL
[2023-12-31] MEDS: Docusate Sodium 100 MG CAPSULE PO ×2 (08:48→21:22)
[2023-12-31] MEDS: Multivitamin TABLET 1 TAB PO (08:48)
[2023-12-31] MEDS: Propranolol HCL 10 MG TABLET PO ×2 (08:48→21:22)
[2023-12-31] MEDS: Thyroid,Pork 30 MG TABLET 60 MG PO (08:48)
[2023-12-31] MEDS: Loratadine 10 MG TABLET PO (08:48)
[2023-12-31] MEDS: Folic Acid 1 MG TABLET PO (08:48)
[2023-12-31] MEDS: Haloperidol Lactate Oral Conc 10 MG/5 ML ORAL.CONC PO ×2 (08:48→21:22)
[2023-12-31] MEDS: Omeprazole 20 MG CAPSULE.DR PO (08:48)
[2023-12-31] MEDS: Benztropine Mesylate 1 MG TABLET PO ×2 (08:48→21:22)
[2023-12-31] MEDS: A and D Ointment 56.7 GM TUBE 1 APPL TOPICAL ×2 (08:49→21:37)
[2023-12-31] MEDS: cloZAPine 100 MG, cloZAPine 25 MG 125 MG PO (15:16)
[2023-12-31] MEDS: clonazePAM 1 MG TABLET PO (16:50)
[2023-12-31 19:12] VITALS: BP 103/68; PULSE 102; TEMP 36.7; O2SAT 96
[2023-12-31] MEDS: cloZAPine 25 MG TABLET 325 MG PO (21:21)
[2023-12-31] MEDS: Magnesium Oxide 400 MG TABLET 500 MG PO (21:22)
[2023-12-31] MEDS: Albuterol Sulfate 90 MCG 8 GM INHALER 2 PUFF INHALE (21:23)
[2024-01-01] MEDS: Thyroid,Pork 30 MG TABLET 60 MG PO (06:54)
[2024-01-01] MEDS: Omeprazole 20 MG CAPSULE.DR PO (06:54)
[2024-01-01 08:00] VITALS: BP 104/74; PULSE 78; RESP 16; TEMP 36.6; O2SAT 96
--- NOTE | 2024-01-01 08:33 | HO.PSYCHPN ---
Subjective Subjective Date of Service: 01/01/24 Reason For Visit: SCHIZOPHRENIA, SI Subjective Notes: Conditional Voluntary Interim History: Pt slept most of the night. She is usually in bed. She briefly woke up to answer some questions. She denies SI/HI. continues to report hearing voices. No behavioral concerns. Review of Systems Review of Systems Denies any acute medical complaints, though declines full ROS Yes all other systems are reviewed and are negative Mental Status Exam Mental Status Exam Narrative: Pt is alert and oriented; behavior is cooperative, friendly, isolative, quiet; patient is not in distress; dressed in hospital attire with adequate hygiene; mood is described as ok and affect congruent, more expressive, less more blunted; eye contact appropriate and less of a blank stare; Speech is still with thought blocking, latency but a little less so; still slowed and soft; still significant psychomotor retardation present; thought process is goal directed and seems organized; Thought content is on tx for AH; denies delusional thinking and none expressed; no SI/no HI. +AH Patients insight and judgment impaired but improved. Diagnostics Vital Signs (24Hr): Vital Signs - 24 hr 12/31/23 19:12 Temperature 98.0 F Pulse Rate 102 H Blood Pressure 103/68 Pulse Oximetry 96 Oxygen Delivery Method Room Air BMI result Body Mass Index 31.4 Labs Labs: Laboratory Results - last 48 hr 12/31/23 08:04 Absolute Neuts (auto) 4.4 Medications Medications Current Medications Acetaminophen (Acetaminophen 325 Mg Tablet) 650 mg PO Q6H PRN PRN Reason: Headache/Pain Mild Scale (1-3) Last Admin: 12/22/23 21:25 Dose: 650 mg Al Hydroxide/Mg Hydroxide (Magnesium Hydrox/Alum Hydrox 30 Ml Oral.Susp) 30 ml PO Q6H PRN PRN Reason: Heartburn/Nausea Albuterol Sulfate (Albuterol Sulfate 90 Mcg 8 Gm Inhaler) 2 puff INHALE RQ4H PRN PRN Reason: Shortness of Breath Last Admin: 12/31/23 21:23 Dose: 2 puff Benztropine Mesylate (Benztropine Mesylate 1 Mg Tablet) 1 mg PO BID LEW Last Admin: 12/31/23 21:22 Dose: 1 mg Clonazepam (Clonazepam 0.5 Mg Tablet) 0.5 mg PO BID PRN PRN Reason: Anxiety Last Admin: 12/21/23 19:57 Dose: 0.5 mg Clonazepam (Clonazepam 1 Mg Tablet) 1 mg PO DAILY@1700 [facility] Last Admin: 12/31/23 16:50 Dose: 1 mg Clozapine 100 mg/ Clozapine 25 (mg) 125 mg PO 1400 [facility] Last Admin: 12/31/23 15:16 Dose: 125 mg Clozapine (Clozapine 25 Mg Tablet) 325 mg PO BEDTIME [facility] Last Admin: 12/31/23 21:21 Dose: 325 mg Docusate Sodium (Docusate Sodium 100 Mg Capsule) 100 mg PO BID [facility] Last Admin: 12/31/23 21:22 Dose: 100 mg Fluticasone Propionate (Fluticasone Propionate Nasal 16 Gm [place]) 1 spray NOSTRIL-B DAILY PRN PRN Reason: nasal congestion Folic Acid (Folic Acid 1 Mg Tablet) 1 mg PO DAILY [facility] Last Admin: 12/31/23 08:48 Dose: 1 mg Haloperidol Decanoate (Haloperidol Decanoate 50 Mg/Ml Vial) 100 mg IM Q14D [facility] Last Admin: 12/22/23 14:45 Dose: 100 mg Haloperidol Lactate (Haloperidol Lactate Oral Conc 10 Mg/5 Ml Oral.Conc) 5 mg PO BID PRN PRN Reason: agitation Last Admin: 12/30/23 22:13 Dose: 5 mg Haloperidol Lactate (Haloperidol Lactate Oral Conc 10 Mg/5 Ml Oral.Conc) 10 mg PO BID [facility] Last Admin: 12/31/23 21:22 Dose: 10 mg Hydroxyzine HCl (Hydroxyzine Hcl 25 Mg Tablet) 25 mg PO Q6H PRN PRN Reason: Anxiety Last Admin: 12/25/23 14:46 Dose: 25 mg Loratadine (Loratadine 10 Mg Tablet) 10 mg PO DAILY [facility] Last Admin: 12/31/23 08:48 Dose: 10 mg Magnesium Hydroxide (Milk Of Magnesia 30 Ml Oral.Susp) 30 ml PO DAILY PRN PRN Reason: Constipation Magnesium Oxide (Magnesium Oxide 400 Mg Tablet) 500 mg PO BEDTIME [facility] Last Admin: 12/31/23 21:22 Dose: 500 mg Multivitamins/Vitamin C (Multivitamin Tablet) 1 tab PO DAILY [facility] Last Admin: 12/31/23 08:48 Dose: 1 tab Patient Own ( (Tecfidera Dr 240 Mg)) 240 mg PO BID [facility] Last Admin: 12/31/23 21:23 Dose: 240 mg Omeprazole (Omeprazole 20 Mg Capsule.Dr) 20 mg PO DAILY@0630 [facility] Last Admin: 01/01/24 06:54 Dose: 20 mg Paliperidone Palmitate (Paliperidone Palmitate 234 Mg/1.5 Ml Syringe) 234 mg IM Q30D [facility] Polyethylene Glycol (Polyethylene Glycol 3350 17 Gm Powd.Pack) 17 gm PO DAILY PRN PRN Reason: ongoing Constipation Propranolol HCl (Propranolol Hcl 10 Mg Tablet) 10 mg PO BID [facility]; Protocol Last Admin: 12/31/23 21:22 Dose: 10 mg Thyroid (Thyroid,Pork 30 Mg Tablet) 60 mg PO DAILY@0600 [facility] Last Admin: 01/01/24 06:54 Dose: 60 mg Vitamin A/Vitamin D (A And D Ointment 56.7 Gm Tube) 1 appl TOPICAL BID [facility]; Protocol Last Admin: 12/31/23 21:37 Dose: 1 appl Allergies Allergies Allergy/AdvReac Type Severity Reaction Status Date / Time Pork/Porcine Containing Allergy Unknown RASH Verified 12/28/23 14:54 Products [PORK/PORCINE CONTAINING PRODUCTS] ALPHA LIPOIC ACID Allergy Unknown Uncoded 10/17/23 02:24 BOILER/CHILLER TECHNICIAN-3 THYROID TOXICITY Allergy Unknown Uncoded 10/17/23 02:24 Assessment & Plan Assessment & Plan (1) Schizoaffective disorder: Qualifiers: Schizoaffective disorder type: depressive Qualified Code(s): F25.1 - Schizoaffective disorder, depressive type Status: Acute Code(s): F25.9 - Schizoaffective disorder, unspecified (2) PTSD (post-traumatic stress disorder): Status: Acute Code(s): F43.10 - Post-traumatic stress disorder, unspecified (3) Multiple sclerosis: Status: Acute Code(s): G35 - Multiple sclerosis (4) Mild persistent asthma: Status: Acute Code(s): J45.30 - Mild persistent asthma, uncomplicated Plan 38-year-old female, history of schizoaffective disorder, direct admission from [facility], where patient had presented with worsening auditory hallucinations and SI. Patient is resident at [facility] for around 10 years. Patient was recently discharged from [facility] where she was admitted on 12/07. She has had several recent admissions to [facility] she was admitted to [facility] [place] on 10/17/2023 and then again on 11/07/2023. Pt has a [facility] order in place, with some information available in the chart, but details around actual medications appears to be missing. Patient states that she received her Haldol Decanoate injection 6 days ago while in [facility]. patient reports today hearing voices telling her to go right to go left. Pt stares blankly at times; appears to be internally preoccupied. She is difficult to engage in interview; she appears anxious. denies SI or HI This narrative writer spoke to Griselda DONYA, patient's guardian: Her concerns are to try to help Anjali get back to baseline she had 2 years stability while at the senior care. She reports that there have been problems with medication, getting the correct medication on time due to a number of factors difficulty with the rims certification, difficulty with the [facility] not having the correct equipment when her injection was done was due, and after different hospitalizations medication list at discharge was not complete and the residential home was unable to correct her medication list. Griselda wonders if her sister could be placed in a long-term care nursing facility for more consistent care. Hospital course: 12/19/23 continue tx plan, hold haldol deconoate until can verify last given dose from [facility] or [facility], encourage PO intake 12/20/23 cont tx 12/20 pt reports continued incessant AH, however they are only saying things like go straight...go left...go right and no longer saying mean, provoking things. Pt asked for higher Haldol dose saying she was supposed to have it available but it was only started yesterday. She says that until about a month ago, she was doing quite well, but then her medications got changed/missed and since then she's decompensated with AH. She's not sure why her medications were changed. To her recollection she recieved Haldol Dec when she was at [facility] about a week ago. -Pt gave permission to call sister/HCP and gave Griselda's phone number. 12/21 Patient continues to report auditory hallucinations however they are still just giving her directions to follow., go left, go right.. Which she says is an improvement and they are no longer saying nasty things. Patient remains convinced that she received Haldol Decanoate at [facility]; however she accepts the [facility] providers report to this narrative writer that she did not receive it and agrees to get a now. 12/31 continue tx Collateral: 1.Technology Services Manager discussed case with patient's sister Griselda: pt doing well on regimen (clozapine, invega sustenna, Haldol Dec +prn) until this past august when she got dx with MS and was hospitalized during which time Invega held and that and other psych meds accidentally not restarted (or delayed...). AH returned and since then, patients sister has been trying to get proper med regimen restarted (at one pt there was problem with clozapine rems). Reviewed list of meds and will change accordingly (increasing mag-oxide to 500mg which is her outpt dose and helped reduce need for clozapine) 2.Technology Services Manager [facility] reports that pt was NOT given Haldol Dec or any other long acting med while there. She did increase her Clozapine to 175mg at 2pm and 275mg at 5pm. 12/22 remains with troubling AH, negative symptoms; continue treatment plan 12/26 pt reports that AH remain the same, no less intensity. However, but is much brighter, smiling at times, says she feels ok and has been out of her room attending groups...She agrees that this behavior may signify improvement at least in her mood, if not her ability to ignore voices. -continue current tx regimen -will consider increasing clozapine 12/27 more thought blocking today; AH remain quite debilitating and patient did not attend any groups today, unable to concentrate on very much due to internal preoccupation. Agrees to go up on Clozaril for now -patient reviewed her allergy list and says she has not allergic to trazodone nor she allergic to alpha lipoic acid, BOILER/CHILLER TECHNICIAN 3 thyroid; also that pork allergy does not cross over to medications. -patient is a candidate for ECT if medication management does not resolve issue as she has refractory psychotic illness and negative symptoms 12/28 1st time patient said voices are little better, talking a little less; continue current treatment plan 12/29 mild improvements, patient showered, AH remains a little less talkative overall but still quite problematic, evidenced by her continued isolation, significant psychomotor retardation, speech latency; discussed speech latency and patient said she is just very distracted by the voices. Discussed medications and she agreed to go up on Clozaril. 12/30 Patient feeling extra tired this morning which she agrees is likely from last night's increased Clozaril. Not much has changed, voices remain quite problematic though less over the past couple days. She agrees to continue at this current new dose and see how things go. Will get labs PLAN: CV Q 15 minute checks Clonazepam 1mg qhs . Clozaril 125 mg 14:00 INCREASED TO Clozaril 325 mg q.h.s. (used to be on 250mg at home; at [facility] increased 275) Haldol Decanoate 100 mg received on 12/21 and then q.2 weeks Magnesium oxide 500 mg Q 17:00; for treatment for psychotic symptoms Haldol 5 mg b.i.d. p.r.n. Continue Haldol 10 mg b.i.d. for now given patient is behind on Haldol and suffering from AH; plan will be to taper and eventually DC Invega Sustenna 234 mg Q 30 days- last dose administered 12/06/23 Thyroid 60 mg daily Omeprazole [address] 240mg BID for MS involve guardian in treatment discharge planning with team Reason for continued inpatient stay Substantial Risk for: inability to function Time Spent With Patient Time: Total time managing care of this patient today ____ minutes.
[2024-01-01] MEDS: Folic Acid 1 MG TABLET PO (10:45)
[2024-01-01] MEDS: Docusate Sodium 100 MG CAPSULE PO ×2 (10:45→21:07)
[2024-01-01] MEDS: Haloperidol Lactate Oral Conc 10 MG/5 ML ORAL.CONC PO ×2 (10:45→21:07)
[2024-01-01] MEDS: A and D Ointment 56.7 GM TUBE 1 APPL TOPICAL (10:45)
[2024-01-01] MEDS: Multivitamin TABLET 1 TAB PO (10:45)
[2024-01-01] MEDS: Propranolol HCL 10 MG TABLET PO ×2 (10:46→21:06)
[2024-01-01] MEDS: Benztropine Mesylate 1 MG TABLET PO ×2 (10:46→21:07)
[2024-01-01] MEDS: Loratadine 10 MG TABLET PO (10:46)
[2024-01-01] MEDS: cloZAPine 100 MG, cloZAPine 25 MG 125 MG PO (14:59)
[2024-01-01] MEDS: clonazePAM 1 MG TABLET PO (18:23)
[2024-01-01 20:00] VITALS: BP 138/84; PULSE 115; RESP 18; TEMP 36.4; O2SAT 98
[2024-01-01] MEDS: Albuterol Sulfate 90 MCG 8 GM INHALER 2 PUFF INHALE (21:05)
[2024-01-01] MEDS: cloZAPine 25 MG TABLET 325 MG PO (21:06)
[2024-01-01] MEDS: Magnesium Oxide 400 MG TABLET 500 MG PO (21:07)
[2024-01-02] MEDS: Omeprazole 20 MG CAPSULE.DR PO (06:26)
[2024-01-02] MEDS: Thyroid,Pork 30 MG TABLET 60 MG PO (06:26)
[2024-01-02 08:00] VITALS: BP 126/80; PULSE 96; RESP 16; TEMP 36.5; O2SAT 98
[2024-01-02] MEDS: Docusate Sodium 100 MG CAPSULE PO ×2 (10:04→21:22)
[2024-01-02] MEDS: Folic Acid 1 MG TABLET PO (10:04)
[2024-01-02] MEDS: Loratadine 10 MG TABLET PO (10:04)
[2024-01-02] MEDS: Multivitamin TABLET 1 TAB PO (10:04)
[2024-01-02] MEDS: Benztropine Mesylate 1 MG TABLET PO ×2 (10:04→21:22)
[2024-01-02] MEDS: Propranolol HCL 10 MG TABLET PO ×2 (10:04→21:42)
[2024-01-02] MEDS: Haloperidol Lactate Oral Conc 10 MG/5 ML ORAL.CONC PO ×2 (10:05→21:21)
[2024-01-02] MEDS: cloZAPine 100 MG, cloZAPine 25 MG 125 MG PO (14:32)
[2024-01-02] MEDS: clonazePAM 1 MG TABLET PO (17:03)
--- NOTE | 2024-01-02 19:26 | HO.PSYCHPN ---
Subjective Subjective Date of Service: 01/02/24 Reason For Visit: SCHIZOPHRENIA, SI Interim History: Pt slept most of the night. She is usually in bed. She briefly woke up to answer some questions. She denies SI/HI. continues to report hearing voices. No behavioral concerns. Review of Systems Review of Systems Denies any acute medical complaints, though declines full ROS Yes all other systems are reviewed and are negative Mental Status Exam Mental Status Exam Narrative: Pt is alert and oriented; behavior is cooperative, friendly, isolative, quiet; patient is not in distress; dressed in hospital attire with adequate hygiene; mood is described as ok and affect congruent, more expressive, less more blunted; eye contact appropriate and less of a blank stare; Speech is still with thought blocking, latency but a little less so; still slowed and soft; still significant psychomotor retardation present; thought process is goal directed and seems organized; Thought content is on tx for AH; denies delusional thinking and none expressed; no SI/no HI. +AH Patients insight and judgment impaired but improved. Diagnostics Vital Signs (24Hr): Vital Signs - 24 hr 01/01/24 20:00 01/02/24 08:00 Temperature 97.6 F 97.7 F Pulse Rate 115 H 96 Respiratory Rate 18 16 Blood Pressure 138/84 126/80 Pulse Oximetry 98 98 Oxygen Delivery Method Room Air Room Air BMI result Body Mass Index 31.4 Medications Medications Current Medications Acetaminophen (Acetaminophen 325 Mg Tablet) 650 mg PO Q6H PRN PRN Reason: Headache/Pain Mild Scale (1-3) Last Admin: 12/22/23 21:25 Dose: 650 mg Al Hydroxide/Mg Hydroxide (Magnesium Hydrox/Alum Hydrox 30 Ml Oral.Susp) 30 ml PO Q6H PRN PRN Reason: Heartburn/Nausea Albuterol Sulfate (Albuterol Sulfate 90 Mcg 8 Gm Inhaler) 2 puff INHALE RQ4H PRN PRN Reason: Shortness of Breath Last Admin: 01/01/24 21:05 Dose: 2 puff Benztropine Mesylate (Benztropine Mesylate 1 Mg Tablet) 1 mg PO BID LEW Last Admin: 01/02/24 10:04 Dose: 1 mg Clonazepam (Clonazepam 0.5 Mg Tablet) 0.5 mg PO BID PRN PRN Reason: Anxiety Last Admin: 12/21/23 19:57 Dose: 0.5 mg Clonazepam (Clonazepam 1 Mg Tablet) 1 mg PO DAILY@1700 [facility] Last Admin: 01/02/24 17:03 Dose: 1 mg Clozapine 100 mg/ Clozapine 25 (mg) 125 mg PO 1400 [facility] Last Admin: 01/02/24 14:32 Dose: 125 mg Clozapine (Clozapine 25 Mg Tablet) 325 mg PO BEDTIME [facility] Last Admin: 01/01/24 21:06 Dose: 325 mg Docusate Sodium (Docusate Sodium 100 Mg Capsule) 100 mg PO BID [facility] Last Admin: 01/02/24 10:04 Dose: 100 mg Fluticasone Propionate (Fluticasone Propionate Nasal 16 Gm [place]) 1 spray NOSTRIL-B DAILY PRN PRN Reason: nasal congestion Folic Acid (Folic Acid 1 Mg Tablet) 1 mg PO DAILY [facility] Last Admin: 01/02/24 10:04 Dose: 1 mg Haloperidol Decanoate (Haloperidol Decanoate 50 Mg/Ml Vial) 100 mg IM Q14D [facility] Last Admin: 12/22/23 14:45 Dose: 100 mg Haloperidol Lactate (Haloperidol Lactate Oral Conc 10 Mg/5 Ml Oral.Conc) 5 mg PO BID PRN PRN Reason: agitation Last Admin: 12/30/23 22:13 Dose: 5 mg Haloperidol Lactate (Haloperidol Lactate Oral Conc 10 Mg/5 Ml Oral.Conc) 10 mg PO BID [facility] Last Admin: 01/02/24 10:05 Dose: 10 mg Hydroxyzine HCl (Hydroxyzine Hcl 25 Mg Tablet) 25 mg PO Q6H PRN PRN Reason: Anxiety Last Admin: 12/25/23 14:46 Dose: 25 mg Loratadine (Loratadine 10 Mg Tablet) 10 mg PO DAILY [facility] Last Admin: 01/02/24 10:04 Dose: 10 mg Magnesium Hydroxide (Milk Of Magnesia 30 Ml Oral.Susp) 30 ml PO DAILY PRN PRN Reason: Constipation Magnesium Oxide (Magnesium Oxide 400 Mg Tablet) 500 mg PO BEDTIME [facility] Last Admin: 01/01/24 21:07 Dose: 500 mg Multivitamins/Vitamin C (Multivitamin Tablet) 1 tab PO DAILY [facility] Last Admin: 01/02/24 10:04 Dose: 1 tab Patient Own ( (Tecfidera Dr 240 Mg)) 240 mg PO BID [facility] Last Admin: 01/02/24 10:05 Dose: 240 mg Omeprazole (Omeprazole 20 Mg Capsule.Dr) 20 mg PO DAILY@0630 [facility] Last Admin: 01/02/24 06:26 Dose: 20 mg Paliperidone Palmitate (Paliperidone Palmitate 234 Mg/1.5 Ml Syringe) 234 mg IM Q30D [facility] Polyethylene Glycol (Polyethylene Glycol 3350 17 Gm Powd.Pack) 17 gm PO DAILY PRN PRN Reason: ongoing Constipation Propranolol HCl (Propranolol Hcl 10 Mg Tablet) 10 mg PO BID [facility]; Protocol Last Admin: 01/02/24 10:04 Dose: 10 mg Thyroid (Thyroid,Pork 30 Mg Tablet) 60 mg PO DAILY@0600 [facility] Last Admin: 01/02/24 06:26 Dose: 60 mg Vitamin A/Vitamin D (A And D Ointment 56.7 Gm Tube) 1 appl TOPICAL BID [facility]; Protocol Last Admin: 01/02/24 10:05 Dose: Not Given Allergies Allergies Allergy/AdvReac Type Severity Reaction Status Date / Time Pork/Porcine Containing Allergy Unknown RASH Verified 12/28/23 14:54 Products [PORK/PORCINE CONTAINING PRODUCTS] ALPHA LIPOIC ACID Allergy Unknown Uncoded 10/17/23 02:24 LEGISLATORS-3 THYROID TOXICITY Allergy Unknown Uncoded 10/17/23 02:24 Assessment & Plan Assessment & Plan (1) Schizoaffective disorder: Qualifiers: Schizoaffective disorder type: depressive Qualified Code(s): F25.1 - Schizoaffective disorder, depressive type Status: Acute Code(s): F25.9 - Schizoaffective disorder, unspecified (2) PTSD (post-traumatic stress disorder): Status: Acute Code(s): F43.10 - Post-traumatic stress disorder, unspecified (3) Multiple sclerosis: Status: Acute Code(s): G35 - Multiple sclerosis (4) Mild persistent asthma: Status: Acute Code(s): J45.30 - Mild persistent asthma, uncomplicated Plan 38-year-old female, history of schizoaffective disorder, direct admission from [facility], where patient had presented with worsening auditory hallucinations and SI. Patient is resident at [facility] for around 10 years. Patient was recently discharged from [facility] where she was admitted on 12/07. She has had several recent admissions to [facility] she was [place] [facility] [place] on [place]/2023 and then again on 11/07/2023. Pt has a [facility] order in place, with some information available in the chart, but details around actual medications appears to be missing. Patient states that she received her Haldol Decanoate injection 6 days ago while in [facility]. patient reports today hearing voices telling her to go right to go left. Pt stares blankly at times; appears to be internally preoccupied. She is difficult to engage in interview; she appears anxious. denies SI or HI This writer producer spoke to Griselda NAQVI, patient's guardian: Her concerns are to try to help Anjali get back to baseline she had 2 years stability while at the [facility]. She reports that there have been problems with medication, getting the correct medication on time due to a number of factors difficulty with the rims certification, difficulty with the [facility] not having the correct equipment when her injection was done was due, and after different hospitalizations medication list at discharge was not complete and the residential home was unable to correct her medication list. Griselda wonders if her sister could be placed in a long-term care nursing facility for more consistent care. Hospital course: 12/19/23 continue tx plan, hold haldol deconoate until can verify last given dose from [facility] or [facility], encourage PO intake 12/20/23 cont tx 12/20 pt reports continued incessant AH, however they are only saying things like go straight...go left...go right and no longer saying mean, provoking things. Pt asked for higher Haldol dose saying she was supposed to have it available but it was only started yesterday. She says that until about a month ago, she was doing quite well, but then her medications got changed/missed and since then she's decompensated with AH. She's not sure why her medications were changed. To her recollection she recieved Haldol Dec when she was at [facility] about a week ago. -Pt gave permission to call sister/HCP and gave Griselda's phone number. 12/21 Patient continues to report auditory hallucinations however they are still just giving her directions to follow., go left, go right.. Which she says is an improvement and they are no longer saying nasty things. Patient remains convinced that she received Haldol Decanoate at [facility]; however she accepts the [facility] providers report to this writer producer that she did not receive it and agrees to get a now. Collateral: 1.Shaker Screen Operator discussed case with patient's sister Griselda: pt doing well on regimen (clozapine, invega sustenna, Haldol Dec +prn) until this past august when she got dx with MS and was hospitalized during which time Invega held and that and other psych meds accidentally not restarted (or delayed...). AH returned and since then, patients sister has been trying to get proper med regimen restarted (at one pt there was problem with clozapine rems). Reviewed list of meds and will change accordingly (increasing mag-oxide to 500mg which is her outpt dose and helped reduce need for clozapine) 2.Shaker Screen Operator discussed case [facility] who reports that pt was NOT given Haldol Dec or any other long acting med while there. She did increase her Clozapine to 175mg at 2pm and 275mg at 5pm. 12/22 remains with troubling AH, negative symptoms; continue treatment plan 12/26 pt reports that AH remain the same, no less intensity. However, but is much brighter, smiling at times, says she feels ok and has been out of her room attending groups...She agrees that this behavior may signify improvement at least in her mood, if not her ability to ignore voices. -continue current tx regimen -will consider increasing clozapine 6/ more thought blocking today; AH remain quite debilitating and patient did not attend any groups today, unable to concentrate on very much due to internal preoccupation. Agrees to go up on Clozaril for now -patient reviewed her allergy list and says she has not allergic to trazodone nor she allergic to alpha lipoic acid, LEGISLATORS 3 thyroid; also that pork allergy does not cross over to medications. -patient is a candidate for ECT if medication management does not resolve issue as she has refractory psychotic illness and negative symptoms 12/28 1st time patient said voices are little better, talking a little less; continue current treatment plan 12/29 mild improvements, patient showered, AH remains a little less talkative overall but still quite problematic, evidenced by her continued isolation, significant psychomotor retardation, speech latency; discussed speech latency and patient said she is just very distracted by the voices. Discussed medications and she agreed to go up on Clozaril. 12/30 Patient feeling extra tired this morning which she agrees is likely from last night's increased Clozaril. Not much has changed, voices remain quite problematic though less over the past couple days. She agrees to continue at this current new dose and see how things go. Will get labs PLAN: CV Q 15 minute checks Clonazepam 1mg qhs . Clozaril 125 mg 14:00 INCREASED TO Clozaril 325 mg q.h.s. (used to be on 250mg at home; at [facility] increased 275) Haldol Decanoate 100 mg received on 12/21 and then q.2 weeks Magnesium oxide 500 mg Q 17:00; for treatment for psychotic symptoms Haldol 5 mg b.i.d. p.r.n. Continue Haldol 10 mg b.i.d. for now given patient is behind on Haldol and suffering from AH; plan will be to taper and eventually DC Invega Sustenna 234 mg Q 30 days- last dose administered 12/06/23 Thyroid 60 mg daily Omeprazole [address] 240mg BID for MS involve guardian in treatment discharge planning with team Reason for continued inpatient stay Substantial Risk for: inability to function Time Spent With Patient Time: Total time managing care of this patient today ____ minutes.
[2024-01-02 20:00] VITALS: BP 111/70; PULSE 103; RESP 16; TEMP 36.6; O2SAT 96
[2024-01-02] MEDS: cloZAPine 25 MG TABLET 325 MG PO (21:21)
[2024-01-02] MEDS: Magnesium Oxide 400 MG TABLET 500 MG PO (21:21)
[2024-01-02 21:42] VITALS: BP 111/70; PULSE 103
[2024-01-02] MEDS: Albuterol Sulfate 90 MCG 8 GM INHALER 2 PUFF INHALE (21:42)
[2024-01-03] MEDS: Thyroid,Pork 30 MG TABLET 60 MG PO (06:10)
[2024-01-03] MEDS: Omeprazole 20 MG CAPSULE.DR PO (06:10)
[2024-01-03 08:00] VITALS: BP 99/57; PULSE 77; TEMP 36.4; O2SAT 97
[2024-01-03 08:38] VITALS: BP 99/57; PULSE 77
[2024-01-03] MEDS: Folic Acid 1 MG TABLET PO (08:38)
[2024-01-03] MEDS: Haloperidol Lactate Oral Conc 10 MG/5 ML ORAL.CONC PO ×2 (08:38→21:11)
[2024-01-03] MEDS: Loratadine 10 MG TABLET PO (08:38)
[2024-01-03] MEDS: Docusate Sodium 100 MG CAPSULE PO ×2 (08:38→21:13)
[2024-01-03] MEDS: Propranolol HCL 10 MG TABLET PO ×2 (08:38→21:13)
[2024-01-03] MEDS: Benztropine Mesylate 1 MG TABLET PO ×2 (08:38→21:13)
[2024-01-03] MEDS: Multivitamin TABLET 1 TAB PO (08:38)
--- NOTE | 2024-01-03 15:03 | HO.PSYCHPN ---
Subjective Subjective Date of Service: 01/03/24 Reason For Visit: SCHIZOPHRENIA, SI Subjective Notes: Conditional Voluntary Interim History: Pt resting in bed when seen. Appears tired, denies feeling overmedicated. She reports no current sx or concerns about medications. Team reports she presents with a depressed mood, flat affect and with auditory perceptual alterations. Medication Compliance: Yes Side effects from medications: No Attending Groups: No Review of Systems Acute medical concerns: No Medical Review of Systems: unchanged Review of Systems Review of Systems Denies Mental Status Exam Mental Status Exam Patient Appearance: Fatigued Patient Orientation: Person, Place, Time and Situation Level of Consciousness: Alert Patient Behavior: Appropriate, Talkative, Cooperative and Good Eye Contact Mood Description: Withdrawn and Depressed Affect Description: Flat Patient Cognition Impaired: No Ability to Follow Directions: Good Speech Pattern: Spontaneous Speech Memory Description: Intact Hallucinations: None and Auditory Thought Content: positive for [place] Judgement: Fair Diagnostics Vital Signs (24Hr): Vital Signs - 24 hr 01/02/24 20:00 01/02/24 21:42 01/03/24 08:00 Temperature 97.9 F 97.6 F Pulse Rate 103 H 103 H 77 Respiratory Rate 16 Blood Pressure 111/70 111/70 99/57 L Pulse Oximetry 96 97 Oxygen Delivery Method Room Air Room Air 01/03/24 08:38 Temperature Pulse Rate 77 Respiratory Rate Blood Pressure 99/57 L Pulse Oximetry Oxygen Delivery Method BMI result Body Mass Index 31.4 Medications Medications Current Medications Acetaminophen (Acetaminophen 325 Mg Tablet) 650 mg PO Q6H PRN PRN Reason: Headache/Pain Mild Scale (1-3) Last Admin: 12/22/23 21:25 Dose: 650 mg Al Hydroxide/Mg Hydroxide (Magnesium Hydrox/Alum Hydrox 30 Ml Oral.Susp) 30 ml PO Q6H PRN PRN Reason: Heartburn/Nausea Albuterol Sulfate (Albuterol Sulfate 90 Mcg 8 Gm Inhaler) 2 puff INHALE RQ4H PRN PRN Reason: Shortness of Breath Last Admin: 01/02/24 21:42 Dose: 2 puff Benztropine Mesylate (Benztropine Mesylate 1 Mg Tablet) 1 mg PO BID LEW Last Admin: 01/03/24 08:38 Dose: 1 mg Clonazepam (Clonazepam 0.5 Mg Tablet) 0.5 mg PO BID PRN PRN Reason: Anxiety Last Admin: 12/21/23 19:57 Dose: 0.5 mg Clonazepam (Clonazepam 1 Mg Tablet) 1 mg PO DAILY@1700 [facility] Last Admin: 01/02/24 17:03 Dose: 1 mg Clozapine 100 mg/ Clozapine 25 (mg) 125 mg PO 1400 [facility] Last Admin: 01/02/24 14:32 Dose: 125 mg Clozapine (Clozapine 25 Mg Tablet) 325 mg PO BEDTIME [facility] Last Admin: 01/02/24 21:21 Dose: 325 mg Docusate Sodium (Docusate Sodium 100 Mg Capsule) 100 mg PO BID [facility] Last Admin: 01/03/24 08:38 Dose: 100 mg Fluticasone Propionate (Fluticasone Propionate Nasal 16 Gm Arjay) 1 spray NOSTRIL-B DAILY PRN PRN Reason: nasal congestion Folic Acid (Folic Acid 1 Mg Tablet) 1 mg PO DAILY [facility] Last Admin: 01/03/24 08:38 Dose: 1 mg Haloperidol Decanoate (Haloperidol Decanoate 50 Mg/Ml Vial) 100 mg IM Q14D [facility] Last Admin: 12/22/23 14:45 Dose: 100 mg Haloperidol Lactate (Haloperidol Lactate Oral Conc 10 Mg/5 Ml Oral.Conc) 5 mg PO BID PRN PRN Reason: agitation Last Admin: 12/30/23 22:13 Dose: 5 mg Haloperidol Lactate (Haloperidol Lactate Oral Conc 10 Mg/5 Ml Oral.Conc) 10 mg PO BID [facility] Last Admin: 01/03/24 08:38 Dose: 10 mg Hydroxyzine HCl (Hydroxyzine Hcl 25 Mg Tablet) 25 mg PO Q6H PRN PRN Reason: Anxiety Last Admin: 12/25/23 14:46 Dose: 25 mg Loratadine (Loratadine 10 Mg Tablet) 10 mg PO DAILY [facility] Last Admin: 01/03/24 08:38 Dose: 10 mg Magnesium Hydroxide (Milk Of Magnesia 30 Ml Oral.Susp) 30 ml PO DAILY PRN PRN Reason: Constipation Magnesium Oxide (Magnesium Oxide 400 Mg Tablet) 500 mg PO BEDTIME [facility] Last Admin: 01/02/24 21:21 Dose: 500 mg Multivitamins/Vitamin C (Multivitamin Tablet) 1 tab PO DAILY [facility] Last Admin: 01/03/24 08:38 Dose: 1 tab Patient Own ( (Tecfidera Dr 240 Mg)) 240 mg PO BID [facility] Last Admin: 01/03/24 11:04 Dose: 240 mg Omeprazole (Omeprazole 20 Mg Capsule.Dr) 20 mg PO DAILY@0630 [facility] Last Admin: 01/03/24 06:10 Dose: 20 mg Paliperidone Palmitate (Paliperidone Palmitate 234 Mg/1.5 Ml Syringe) 234 mg IM Q30D [facility] Polyethylene Glycol (Polyethylene Glycol 3350 17 Gm Powd.Pack) 17 gm PO DAILY PRN PRN Reason: ongoing Constipation Propranolol HCl (Propranolol Hcl 10 Mg Tablet) 10 mg PO BID [facility]; Protocol Last Admin: 01/03/24 08:38 Dose: 10 mg Thyroid (Thyroid,Pork 30 Mg Tablet) 60 mg PO DAILY@0600 [facility] Last Admin: 01/03/24 06:10 Dose: 60 mg Vitamin A/Vitamin D (A And D Ointment 56.7 Gm Tube) 1 appl TOPICAL BID [facility]; Protocol Last Admin: 01/03/24 08:54 Dose: Not Given Allergies Allergies Allergy/AdvReac Type Severity Reaction Status Date / Time Pork/Porcine Containing Allergy Unknown RASH Verified 12/28/23 14:54 Products [PORK/PORCINE CONTAINING PRODUCTS] ALPHA LIPOIC ACID Allergy Unknown Uncoded 10/17/23 02:24 [employer] MANAGER-3 THYROID TOXICITY Allergy Unknown Uncoded 10/17/23 02:24 Assessment & Plan Assessment & Plan (1) Schizoaffective disorder: Qualifiers: Schizoaffective disorder type: depressive Qualified Code(s): F25.1 - Schizoaffective disorder, depressive type Status: Acute Code(s): F25.9 - Schizoaffective disorder, unspecified (2) PTSD (post-traumatic stress disorder): Status: Acute Code(s): F43.10 - Post-traumatic stress disorder, unspecified (3) Multiple sclerosis: Status: Acute Code(s): G35 - Multiple sclerosis (4) Mild persistent asthma: Status: Acute Code(s): J45.30 - Mild persistent asthma, uncomplicated Plan 38-year-old female, history of schizoaffective disorder, direct admission from [facility], where patient had presented with worsening auditory hallucinations and SI. Patient is resident at [facility] for around 10 years. Patient was recently discharged from [facility] where she was admitted on 12/07. She has had several recent admissions to [facility] she was admitted to [facility] inpatient on 10/17/2023 and then again on 11/07/2023. Pt [facility] order in [facility], with some information available in the chart, but details around actual medications appears to be missing. Patient states that she received her Haldol Decanoate injection 6 days ago while in [facility]. patient reports today hearing voices telling her to go right to go left. Pt stares blankly at times; appears to be internally preoccupied. She is difficult to engage in interview; she appears anxious. denies SI or HI This documentation writer spoke to Griseldayluiet NAQVI, patient's guardian: Her concerns are to try to help Anjali get back to baseline she had 2 years stability while at the detention. She reports that there have been problems with medication, getting the correct medication on time due to a number of factors difficulty with the rims certification, difficulty with the [facility] not having the correct equipment when her injection was done was due, and after different hospitalizations medication list at discharge was not complete and the residential home was unable to correct her medication list. Griselda wonders if her sister could be placed in a long-term care nursing facility for more consistent care. Hospital course: 12/19/23 continue tx plan, hold haldol deconoate until can verify last given dose from [facility] or [facility], encourage PO intake 12/20/23 cont tx 12/20 pt reports continued incessant AH, however they are only saying things like go straight...go left...go right and no longer saying mean, provoking things. Pt asked for higher Haldol dose saying she was supposed to have it available but it was only started yesterday. She says that until about a month ago, she was doing quite well, but then her medications got changed/missed and since then she's decompensated with AH. She's not sure why her medications were changed. To her recollection she recieved Haldol Dec when she was at [facility] about a week ago. -Pt gave permission to call sister/HCP and gave Griselda's phone number. 12/21 Patient continues to report auditory hallucinations however they are still just giving her directions to follow., go left, go right.. Which she says is an improvement and they are no longer saying nasty things. Patient remains convinced that she received Haldol Decanoate at [facility]; however she accepts the [facility] providers report to this documentation writer that she did not receive it and agrees to get a now. Collateral: 1.Enterprise Manager discussed case with patient's sister Griselda: pt doing well on regimen (clozapine, invega sustenna, Haldol Dec +prn) until this past august when she got dx with MS and was hospitalized during which time Invega held and that and other psych meds accidentally not restarted (or delayed...). AH returned and since then, patients sister has been trying to get proper med regimen restarted (at one pt there was problem with clozapine rems). Reviewed list of meds and will change accordingly (increasing mag-oxide to 500mg which is her outpt dose and helped reduce need for clozapine) 2.Enterprise Manager [facility] that pt was NOT given Haldol Dec or any other long acting med while there. She did increase her Clozapine to 175mg at 2pm and 275mg at 5pm. 12/22 remains with troubling AH, negative symptoms; continue treatment plan 12/26 pt reports that AH remain the same, no less intensity. However, but is much brighter, smiling at times, says she feels ok and has been out of her room attending groups...She agrees that this behavior may signify improvement at least in her mood, if not her ability to ignore voices. -continue current tx regimen -will consider increasing clozapine 6/ more thought blocking today; AH remain quite debilitating and patient did not attend any groups today, unable to concentrate on very much due to internal preoccupation. Agrees to go up on Clozaril for now -patient reviewed her allergy list and says she has not allergic to trazodone nor she allergic to alpha lipoic acid, [employer] MANAGER 3 thyroid; also that pork allergy does not cross over to medications. -patient is a candidate for ECT if medication management does not resolve issue as she has refractory psychotic illness and negative symptoms 12/28 1st time patient said voices are little better, talking a little less; continue current treatment plan 12/29 mild improvements, patient showered, AH remains a little less talkative overall but still quite problematic, evidenced by her continued isolation, significant psychomotor retardation, speech latency; discussed speech latency and patient said she is just very distracted by the voices. Discussed medications and she agreed to go up on Clozaril. 12/30 Patient feeling extra tired this morning which she agrees is likely from last night's increased Clozaril. Not much has changed, voices remain quite problematic though less over the past couple days. She agrees to continue at this current new dose and see how things go. Will get labs 01/02 Continue tx. PLAN: CV Q 15 minute checks Clonazepam 1mg qhs . Clozaril 125 mg 14:00 INCREASED TO Clozaril 325 mg q.h.s. (used to be on 250mg at home; at [facility] increased 275) Haldol Decanoate 100 mg received on 12/21 and then q.2 weeks Magnesium oxide 500 mg Q 17:00; for treatment for psychotic symptoms Haldol 5 mg b.i.d. p.r.n. Continue Haldol 10 mg b.i.d. for now given patient is behind on Haldol and suffering from AH; plan will be to taper and eventually DC Invega Sustenna 234 mg Q 30 days- last dose administered 12/06/23 Thyroid 60 mg daily Omeprazole [address] 240mg BID for MS involve guardian in treatment discharge planning with team Reason for continued inpatient stay Substantial Risk for: rapid decompensation Time Spent With Patient Time: Total time managing care of this patient today ____ minutes.
[2024-01-03] MEDS: cloZAPine 100 MG, cloZAPine 25 MG 125 MG PO (16:02)
[2024-01-03] MEDS: clonazePAM 1 MG TABLET PO (16:56)
[2024-01-03 20:00] VITALS: BP 122/86; PULSE 126; RESP 16
[2024-01-03] MEDS: cloZAPine 25 MG TABLET 325 MG PO (21:12)
[2024-01-03] MEDS: Magnesium Oxide 400 MG TABLET 500 MG PO (21:12)
[2024-01-03 21:13] VITALS: BP 122/86; PULSE 126
[2024-01-04] MEDS: Thyroid,Pork 30 MG TABLET 60 MG PO (05:29)
[2024-01-04] MEDS: Omeprazole 20 MG CAPSULE.DR PO (05:29)
[2024-01-04 07:53] VITALS: BP 110/67; PULSE 76; RESP 16; TEMP 36.4; O2SAT 97
[2024-01-04] MEDS: Propranolol HCL 10 MG TABLET PO ×2 (08:51→20:59)
[2024-01-04] MEDS: Multivitamin TABLET 1 TAB PO (08:51)
[2024-01-04] MEDS: Loratadine 10 MG TABLET PO (08:52)
[2024-01-04] MEDS: Docusate Sodium 100 MG CAPSULE PO ×2 (08:52→20:55)
[2024-01-04] MEDS: Folic Acid 1 MG TABLET PO (08:52)
[2024-01-04] MEDS: Benztropine Mesylate 1 MG TABLET PO ×2 (08:52→20:55)
[2024-01-04] MEDS: Haloperidol Lactate Oral Conc 10 MG/5 ML ORAL.CONC PO ×2 (08:52→20:55)
--- NOTE | 2024-01-04 09:43 | HO.PSYCHPN ---
Subjective Subjective Date of Service: 01/04/24 Reason For Visit: SCHIZOPHRENIA, SI Interim History: met with patient; discussed with team Met with patient and her sister who was also her healthcare proxy Patient continues to report that auditory hallucinations are bothersome; they have mostly remained less than they were before, however later in the afternoon she started reporting that they were again telling her to keep the door open, which is a a sign of potential worsening of AH. They are both concerned about her discharging back to the [facility] at this time, given that voices remain problematic and that after last recent discharge she returned to the hospital after only 1 day at the [facility], because of the voices. Discussed treatment and medication regimen, risks/side effects and both her sister and patient agreed to go up further on Clozaril, feeling that the potential benefit outweighs the risk and that patient can always be tapered back to a lower dose later on down the road as an outpatient. Mental Status Exam Mental Status Exam Narrative: Pt is alert and oriented; behavior is cooperative, friendly, isolative, quiet; patient is not in distress; dressed in hospital attire with adequate hygiene; mood is described as ok and affect congruent, a little more expressive, still blunted, but less than on admission; eye contact appropriate more of a blank stare; Speech with thought blocking, latency; still slowed and soft; still significant psychomotor retardation present; thought process is goal directed and seems organized; Thought content is on tx for AH; denies delusional thinking and none expressed; no SI/no HI. +AH Patients insight and judgment though has improved some, remains impaired and vulnerable to taking direction from Diagnostics Vital Signs (24Hr): Vital Signs - 24 hr 01/03/24 20:00 01/03/24 21:13 01/04/24 07:53 Temperature 97.6 F Pulse Rate 126 H 126 H 76 Respiratory Rate 16 16 Blood Pressure 122/86 122/86 110/67 Pulse Oximetry 97 Oxygen Delivery Method Room Air BMI result Body Mass Index 31.4 Medications Medications Current Medications Acetaminophen (Acetaminophen 325 Mg Tablet) 650 mg PO Q6H PRN PRN Reason: Headache/Pain Mild Scale (1-3) Last Admin: 12/22/23 21:25 Dose: 650 mg Al Hydroxide/Mg Hydroxide (Magnesium Hydrox/Alum Hydrox 30 Ml Oral.Susp) 30 ml PO Q6H PRN PRN Reason: Heartburn/Nausea Albuterol Sulfate (Albuterol Sulfate 90 Mcg 8 Gm Inhaler) 2 puff INHALE RQ4H PRN PRN Reason: Shortness of Breath Last Admin: 01/02/24 21:42 Dose: 2 puff Benztropine Mesylate (Benztropine Mesylate 1 Mg Tablet) 1 mg PO BID [facility] Last Admin: 01/04/24 08:52 Dose: 1 mg Clonazepam (Clonazepam 0.5 Mg Tablet) 0.5 mg PO BID PRN PRN Reason: Anxiety Last Admin: 12/21/23 19:57 Dose: 0.5 mg Clonazepam (Clonazepam 1 Mg Tablet) 1 mg PO DAILY@1700 [facility] Last Admin: 01/03/24 16:56 Dose: 1 mg Clozapine 100 mg/ Clozapine 25 (mg) 125 mg PO 1400 [facility] Last Admin: 01/03/24 16:02 Dose: 125 mg Clozapine (Clozapine 25 Mg Tablet) 325 mg PO BEDTIME [facility] Last Admin: 01/03/24 21:12 Dose: 325 mg Docusate Sodium (Docusate Sodium 100 Mg Capsule) 100 mg PO BID [facility] Last Admin: 01/04/24 08:52 Dose: 100 mg Fluticasone Propionate (Fluticasone Propionate Nasal 16 Gm [place]) 1 spray NOSTRIL-B DAILY PRN PRN Reason: nasal congestion Folic Acid (Folic Acid 1 Mg Tablet) 1 mg PO DAILY [facility] Last Admin: 01/04/24 08:52 Dose: 1 mg Haloperidol Decanoate (Haloperidol Decanoate 50 Mg/Ml Vial) 100 mg IM Q14D [facility] Last Admin: 12/22/23 14:45 Dose: 100 mg Haloperidol Lactate (Haloperidol Lactate Oral Conc 10 Mg/5 Ml Oral.Conc) 5 mg PO BID PRN PRN Reason: agitation Last Admin: 12/30/23 22:13 Dose: 5 mg Haloperidol Lactate (Haloperidol Lactate Oral Conc 10 Mg/5 Ml Oral.Conc) 10 mg PO BID [facility] Last Admin: 01/04/24 08:52 Dose: 10 mg Hydroxyzine HCl (Hydroxyzine Hcl 25 Mg Tablet) 25 mg PO Q6H PRN PRN Reason: Anxiety Last Admin: 12/25/23 14:46 Dose: 25 mg Loratadine (Loratadine 10 Mg Tablet) 10 mg PO DAILY [facility] Last Admin: 01/04/24 08:52 Dose: 10 mg Magnesium Hydroxide (Milk Of Magnesia 30 Ml Oral.Susp) 30 ml PO DAILY PRN PRN Reason: Constipation Magnesium Oxide (Magnesium Oxide 400 Mg Tablet) 500 mg PO BEDTIME [facility] Last Admin: 01/03/24 21:12 Dose: 500 mg Multivitamins/Vitamin C (Multivitamin Tablet) 1 tab PO DAILY [facility] Last Admin: 01/04/24 08:51 Dose: 1 tab Patient Own ( (Tecfidera Dr 240 Mg)) 240 mg PO BID [facility] Last Admin: 01/04/24 08:52 Dose: 240 mg Omeprazole (Omeprazole 20 Mg Capsule.Dr) 20 mg PO DAILY@0630 [facility] Last Admin: 01/04/24 05:29 Dose: 20 mg Paliperidone Palmitate (Paliperidone Palmitate 234 Mg/1.5 Ml Syringe) 234 mg IM Q30D [facility] Polyethylene Glycol (Polyethylene Glycol 3350 17 Gm Powd.Pack) 17 gm PO DAILY PRN PRN Reason: ongoing Constipation Propranolol HCl (Propranolol Hcl 10 Mg Tablet) 10 mg PO BID [facility]; Protocol Last Admin: 01/04/24 08:51 Dose: 10 mg Thyroid (Thyroid,Pork 30 Mg Tablet) 60 mg PO DAILY@0600 [facility] Last Admin: 01/04/24 05:29 Dose: 60 mg Vitamin A/Vitamin D (A And D Ointment 56.7 Gm Tube) 1 appl TOPICAL BID [facility]; Protocol Last Admin: 01/04/24 08:52 Dose: Not Given Allergies Allergies Allergy/AdvReac Type Severity Reaction Status Date / Time Pork/Porcine Containing Allergy Unknown RASH Verified 12/28/23 14:54 Products [PORK/PORCINE CONTAINING PRODUCTS] ALPHA LIPOIC ACID Allergy Unknown Uncoded 10/17/23 02:24 CLINICAL DATA ANALYST-3 THYROID TOXICITY Allergy Unknown Uncoded 10/17/23 02:24 Assessment & Plan Assessment & Plan (1) Schizoaffective disorder: Qualifiers: Schizoaffective disorder type: depressive Qualified Code(s): F25.1 - Schizoaffective disorder, depressive type Status: Acute Code(s): F25.9 - Schizoaffective disorder, unspecified (2) PTSD (post-traumatic stress disorder): Status: Acute Code(s): F43.10 - Post-traumatic stress disorder, unspecified (3) Multiple sclerosis: Status: Acute Code(s): G35 - Multiple sclerosis (4) Mild persistent asthma: Status: Acute Code(s): J45.30 - Mild persistent asthma, uncomplicated Plan 38-year-old female, history of schizoaffective disorder, direct admission from , where patient had presented with worsening auditory hallucinations and SI. Patient is resident at [facility] for around 10 years. Patient was recently discharged from [facility] where she was admitted on 12/07. She has had several recent admissions to [facility] she was admitted to [facility] inpatient on 10/17/2023 and then again on 11/07/2023. Pt has a [facility] and [facility] order in place, with some information available in the chart, but details around actual medications appears to be missing. Patient states that she received her Haldol Decanoate injection 6 days ago while in [facility]. patient reports today hearing voices telling her to go right to go left. Pt stares blankly at times; appears to be internally preoccupied. She is difficult to engage in interview; she appears anxious. denies SI or HI This story writer spoke to Griselda DONYA, patient's guardian: Her concerns are to try to help Anjali get back to baseline she had 2 years stability while at the [facility]. She reports that there have been problems with medication, getting the correct medication on time due to a number of factors difficulty with the rims certification, difficulty with the [facility] not having the correct equipment when her injection was done was due, and after different hospitalizations medication list at discharge was not complete and the residential home was unable to correct her medication list. Griselda wonders if her sister could be placed in a long-term care nursing facility for more consistent care. Hospital course: 12/19/23 continue tx plan, hold haldol deconoate until can verify last given dose from [facility] or [facility], encourage PO intake 12/20/23 cont tx 12/20 pt reports continued incessant AH, however they are only saying things like go straight...go left...go right and no longer saying mean, provoking things. Pt asked for higher Haldol dose saying she was supposed to have it available but it was only started yesterday. She says that until about a month ago, she was doing quite well, but then her medications got changed/missed and since then she's decompensated with AH. She's not sure why her medications were changed. To her recollection she recieved Haldol Dec when she was at [facility] about a week ago. -Pt gave permission to call sister/HCP and gave Griselda's phone number. 12/21 Patient continues to report auditory hallucinations however they are still just giving her directions to follow., go left, go right.. Which she says is an improvement and they are no longer saying nasty things. Patient remains convinced that she received Haldol Decanoate at [facility]; however she accepts the [facility] providers report to this story writer that she did not receive it and agrees to get a now. Collateral: 1.Residential Green Building Designer discussed case with patient's sister Griselda: pt doing well on regimen (clozapine, invega sustenna, Haldol Dec +prn) until this past august when she got dx with MS and was hospitalized during which time Invega held and that and other psych meds accidentally not restarted (or delayed...). AH returned and since then, patients sister has been trying to get proper med regimen restarted (at one pt there was problem with clozapine rems). Reviewed list of meds and will change accordingly (increasing mag-oxide to 500mg which is her outpt dose and helped reduce need for clozapine) 2.Residential Green Building Designer [facility] reports that pt was NOT given Haldol Dec or any other long acting med while there. She did increase her Clozapine to 175mg at 2pm and 275mg at 5pm. 12/22 remains with troubling AH, negative symptoms; continue treatment plan / pt reports that AH remain the same, no less intensity. However, but is much brighter, smiling at times, says she feels ok and has been out of her room attending groups...She agrees that this behavior may signify improvement at least in her mood, if not her ability to ignore voices. -continue current tx regimen -will consider increasing clozapine 6/ more thought blocking today; AH remain quite debilitating and patient did not attend any groups today, unable to concentrate on very much due to internal preoccupation. Agrees to go up on Clozaril for now -patient reviewed her allergy list and says she has not allergic to trazodone nor she allergic to alpha lipoic acid, CLINICAL DATA ANALYST 3 thyroid; also that pork allergy does not cross over to medications. -patient is a candidate for ECT if medication management does not resolve issue as she has refractory psychotic illness and negative symptoms 12/28 1st time patient said voices are little better, talking a little less; continue current treatment plan 12/29 mild improvements, patient showered, AH remains a little less talkative overall but still quite problematic, evidenced by her continued isolation, significant psychomotor retardation, speech latency; discussed speech latency and patient said she is just very distracted by the voices. Discussed medications and she agreed to go up on Clozaril. 12/30 Patient feeling extra tired this morning which she agrees is likely from last night's increased Clozaril. Not much has changed, voices remain quite problematic though less over the past couple days. She agrees to continue at this current new dose and see how things go. Will get labs 01/03 voices got a little worse this afternoon, telling her to keep the door open, which is reminiscent of AH prior to admission that proved controlling and hard for her to dismiss. Discussed case with her sister Griselda who is also healthcare proxy and present on the unit, as well as patient; discussed risks/side effects of medication regimen and all agreed to go up on Clozaril for now -though she has improved some, she is far from baseline, remains impaired and vulnerable to quickly decompensated further and taking direction from PLAN: CV Q 15 minute checks Clonazepam 1mg qhs . Clozaril 125 mg 14:00 INCREASED TO Clozaril 325 mg q.h.s. (used to be on 250mg at home; at [facility] increased 275) Haldol Decanoate 100 mg received on 12/21 and then q.2 weeks Magnesium oxide 500 mg Q 17:00; for treatment for psychotic symptoms Haldol 5 mg b.i.d. p.r.n. Continue Haldol 10 mg b.i.d. for now given patient is behind on Haldol and suffering from AH; plan will be to taper and eventually DC Invega Sustenna 234 mg Q 30 days- last dose administered 12/06/23 Thyroid 60 mg daily Omeprazole [address] 240mg BID for MS involve guardian in treatment discharge planning with team Patient educated on: diagnosis, medication risk/benefits and therapeutic strategies Informed Consent: understands Reason for continued inpatient stay Substantial Risk for: inability to function Time Spent With Patient Time: Total time managing care of this patient today ____ minutes.
[2024-01-04] MEDS: cloZAPine 100 MG, cloZAPine 25 MG 125 MG PO (14:41)
[2024-01-04] MEDS: clonazePAM 1 MG TABLET PO (17:32)
[2024-01-04 20:00] VITALS: BP 121/82; PULSE 120; RESP 18; O2SAT 98
[2024-01-04] MEDS: Magnesium Oxide 400 MG TABLET 500 MG PO (20:52)
[2024-01-04 20:59] VITALS: BP 121/82; PULSE 120
[2024-01-05] MEDS: Thyroid,Pork 30 MG TABLET 60 MG PO (06:00)
[2024-01-05] MEDS: Omeprazole 20 MG CAPSULE.DR PO (06:00)
[2024-01-05 08:00] VITALS: BP 98/57; PULSE 82; RESP 16; TEMP 36.3; O2SAT 96
[2024-01-05 09:05] VITALS: BP 98/57; PULSE 82
[2024-01-05] MEDS: Propranolol HCL 10 MG TABLET PO ×2 (09:05→20:18)
[2024-01-05] MEDS: Multivitamin TABLET 1 TAB PO (09:07)
[2024-01-05] MEDS: Loratadine 10 MG TABLET PO (09:07)
[2024-01-05] MEDS: Docusate Sodium 100 MG CAPSULE PO ×2 (09:07→20:17)
[2024-01-05] MEDS: Benztropine Mesylate 1 MG TABLET PO ×2 (09:07→20:18)
[2024-01-05] MEDS: Folic Acid 1 MG TABLET PO (09:07)
[2024-01-05] MEDS: Haloperidol Lactate Oral Conc 10 MG/5 ML ORAL.CONC PO ×2 (09:08→21:16)
[2024-01-05] MEDS: A and D Ointment 56.7 GM TUBE 1 APPL TOPICAL (09:08)
--- NOTE | 2024-01-05 09:08 | P.PNPSI_ITS ---
Subjective Subjective Date of Service: 01/05/24 Reason For Visit: SCHIZOPHRENIA, SI Interim History: Met with patient; discussed with team Auditory hallucinations have intensified since yesterday and are telling her to keep the door open; discussed challenging them and patient says if she does they only come back at her stronger. Patient says that brain however is nothing new is just that now the doors open, people can see that she is doing it more often. She continues to agree with plan of increased Clozaril. Patient tired during the day Mental Status Exam Mental Status Exam Narrative: Pt is alert and oriented; behavior is cooperative, friendly, isolative, quiet; patient is not in distress; dressed in hospital attire with adequate hygiene; mood is described as ok and affect congruent, a little more expressive, still blunted, but less than on admission; eye contact appropriate more of a blank stare; Speech with thought blocking, latency; still slowed and soft; still sig nificant psychomotor retardation present; thought process is goal directed and seems organized; Thought content is on tx for AH; denies delusional thinking and none expressed; no SI/no HI. +AH Patients insight and judgment though has improved some, remains impaired and vulnerable to taking direction from AH Diagnostics Vital Signs (24Hr): Vital Signs - 24 hr 01/04/24 20:00 01/04/24 20:59 Pulse Rate 120 H 120 H Respiratory Rate 18 Blood Pressure 121/82 121/82 Pulse Oximetry 98 Oxygen Delivery Method Room Air BMI result Body Mass Index 31.4 Medications Medications Current Medications Acetaminophen (Acetaminophen 325 Mg Tablet) 650 mg PO Q6H PRN PRN Reason: Headache/Pain Mild Scale (1-3) Last Admin: 12/22/23 21:25 Dose: 650 mg Al Hydroxide/Mg Hydroxide (Magnesium Hydrox/Alum Hydrox 30 Ml Oral.Susp) 30 ml PO Q6H PRN PRN Reason: Heartburn/Nausea Albuterol Sulfate (Albuterol Sulfate 90 Mcg 8 Gm Inhaler) 2 puff INHALE RQ4H PRN PRN Reason: Shortness of Breath Last Admin: 01/02/24 21:42 Dose: 2 puff Benztropine Mesylate (Benztropine Mesylate 1 Mg Tablet) 1 mg PO BID LEW Last Admin: 01/04/24 20:55 Dose: 1 mg Clonazepam (Clonazepam 0.5 Mg Tablet) 0.5 mg PO BID PRN PRN Reason: Anxiety Last Admin: 12/21/23 19:57 Dose: 0.5 mg Clonazepam (Clonazepam 1 Mg Tablet) 1 mg PO DAILY@1700 [facility] Last Admin: 01/04/24 17:32 Dose: 1 mg Clozapine 100 mg/ Clozapine 25 (mg) 125 mg PO 1400 [facility] Last Admin: 01/04/24 14:41 Dose: 125 mg Clozapine 300 mg/ Clozapine 50 (mg) 350 mg PO BEDTIME [facility] Last Admin: 01/04/24 20:56 Dose: 350 mg Docusate Sodium (Docusate Sodium 100 Mg Capsule) 100 mg PO BID [facility] Last Admin: 01/04/24 20:55 Dose: 100 mg Fluticasone Propionate (Fluticasone Propionate Nasal 16 Gm [place]) 1 spray NOSTRIL-B DAILY PRN PRN Reason: nasal congestion Folic Acid (Folic Acid 1 Mg Tablet) 1 mg PO DAILY [facility] Last Admin: 01/04/24 08:52 Dose: 1 mg Haloperidol Decanoate (Haloperidol Decanoate 50 Mg/Ml Vial) 100 mg IM Q14D [facility] Last Admin: 12/22/23 14:45 Dose: 100 mg Haloperidol Lactate (Haloperidol Lactate Oral Conc 10 Mg/5 Ml Oral.Conc) 5 mg PO BID PRN PRN Reason: agitation Last Admin: 12/30/23 22:13 Dose: 5 mg Haloperidol Lactate (Haloperidol Lactate Oral Conc 10 Mg/5 Ml Oral.Conc) 10 mg PO BID [facility] Last Admin: 01/04/24 20:55 Dose: 10 mg Hydroxyzine HCl (Hydroxyzine Hcl 25 Mg Tablet) 25 mg PO Q6H PRN PRN Reason: Anxiety Last Admin: 12/25/23 14:46 Dose: 25 mg Loratadine (Loratadine 10 Mg Tablet) 10 mg PO DAILY [facility] Last Admin: 01/04/24 08:52 Dose: 10 mg Magnesium Hydroxide (Milk Of Magnesia 30 Ml Oral.Susp) 30 ml PO DAILY PRN PRN Reason: Constipation Magnesium Oxide (Magnesium Oxide 400 Mg Tablet) 500 mg PO BEDTIME [facility] Last Admin: 01/04/24 20:52 Dose: 500 mg Multivitamins/Vitamin C (Multivitamin Tablet) 1 tab PO DAILY [facility] Last Admin: 01/04/24 08:51 Dose: 1 tab Patient Own ( (Tecfidera Dr 240 Mg)) 240 mg PO BID [facility] Last Admin: 01/04/24 20:52 Dose: 240 mg Omeprazole (Omeprazole 20 Mg Capsule.Dr) 20 mg PO DAILY@0630 [facility] Last Admin: 01/05/24 06:00 Dose: 20 mg Paliperidone Palmitate (Paliperidone Palmitate 234 Mg/1.5 Ml Syringe) 234 mg IM Q30D [facility] Polyethylene Glycol (Polyethylene Glycol 3350 17 Gm Powd.Pack) 17 gm PO DAILY PRN PRN Reason: ongoing Constipation Propranolol HCl (Propranolol Hcl 10 Mg Tablet) 10 mg PO BID [facility]; Protocol Last Admin: 01/04/24 20:59 Dose: 10 mg Thyroid (Thyroid,Pork 30 Mg Tablet) 60 mg PO DAILY@0600 [facility] Last Admin: 01/05/24 06:00 Dose: 60 mg Vitamin A/Vitamin D (A And D Ointment 56.7 Gm Tube) 1 appl TOPICAL BID [facility]; Protocol Last Admin: 01/04/24 22:15 Dose: Not Given Allergies Allergies Allergy/AdvReac Type Severity Reaction Status Date / Time Pork/Porcine Containing Allergy Unknown RASH Verified 12/28/23 14:54 Products [PORK/PORCINE CONTAINING PRODUCTS] ALPHA LIPOIC ACID Allergy Unknown Uncoded 10/17/23 02:24 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 THYROID TOXICITY Allergy Unknown Uncoded 10/17/23 02:24 Assessment & Plan Assessment & Plan (1) Schizoaffective disorder: Qualifiers: Schizoaffective disorder type: depressive Qualified Code(s): F25.1 - Schizoaffective disorder, depressive type Status: Acute Code(s): F25.9 - Schizoaffective disorder, unspecified (2) PTSD (post-traumatic stress disorder): Status: Acute Code(s): F43.10 - Post-traumatic stress disorder, unspecified (3) Multiple sclerosis: Status: Acute Code(s): G35 - Multiple sclerosis (4) Mild persistent asthma: Status: Acute Code(s): J45.30 - Mild persistent asthma, uncomplicated Plan 38-year-old female, history of schizoaffective disorder, direct admission from [facility], where patient had presented with worsening auditory hallucinations and SI. Patient is resident at [facility] for around 10 years. Patient was recently discharged from [facility] where she was admitted on 12/07. She has had several recent admissions to [facility] she was admitted to [facility] inpatient on 10/17/2023 and then again on 11/07/2023. [facility], with some information available in the chart, but details around actual medications appears to be missing. Patient states that she received her Haldol Decanoate injection 6 days ago while in [facility]. patient reports today hearing voices telling her to go right to go left. Pt stares blankly at times; appears to be internally preoccupied. She is difficult to engage in interview; she appears anxious. denies SI or HI This inspector automatic typewriter spoke to Griselda DONYA, patient's guardian: Her concerns are to try to help Anjali get back to baseline she had 2 years stability while at the skilled nursing. She reports that there have been problems with medication, getting the correct medication on time due to a number of factors difficulty with the rims certification, difficulty with the [facility] not having the correct equipment when her injection was done was due, and after different hospitalizations medication list at discharge was not complete and the residential home was unable to correct her medication list. Griselda wonders if her sister could be placed in a long-term care nursing facility for more consistent care. Hospital course: 12/19/23 continue tx plan, hold haldol deconoate until can verify last given dose from [facility] or [facility], encourage PO intake 12/20/23 cont tx 12/20 pt reports continued incessant AH, however they are only saying things like go straight...go left...go right and no longer saying mean, provoking things. Pt asked for higher Haldol dose saying she was supposed to have it available but it was only started yesterday. She says that until about a month ago, she was doing quite well, but then her medications got changed/missed and since then she's decompensated with AH. She's not sure why her medications were changed. To her recollection she recieved Haldol Dec when she was at [facility] about a week ago. -Pt gave permission to call sister/HCP and gave Griselda's phone number. 12/21 Patient continues to report auditory hallucinations however they are still just giving her directions to follow., go left, go right.. Which she says is an improvement and they are no longer saying nasty things. Patient remains convinced that she received Haldol Decanoate at [facility]; however she accepts the [facility] providers report to this inspector automatic typewriter that she did not receive it and agrees to get a now. Collateral: 1.Rock Cutter discussed case with patient's sister Griselda: pt doing well on regimen (clozapine, invega sustenna, Haldol Dec +prn) until this past august when she got dx with MS and was hospitalized during which time Invega held and that and other psych meds accidentally not restarted (or delayed...). AH returned and since then, patients sister has been trying to get proper med regimen restarted (at one pt there was problem with clozapine rems). Reviewed list of meds and will change accordingly (increasing mag-oxide to 500mg which is her outpt dose and helped reduce need for clozapine) 2.Rock Cutter [facility] NOT given Haldol Dec or any other long acting med while there. She did increase her Clozapine to 175mg at 2pm and 275mg at 5pm. 12/22 remains with troubling AH, negative symptoms; continue treatment plan 12/26 pt reports that AH remain the same, no less intensity. However, but is much brighter, smiling at times, says she feels ok and has been out of her room attending groups...She agrees that this behavior may signify improvement at least in her mood, if not her ability to ignore voices. -continue current tx regimen -will consider increasing clozapine 6/ more thought blocking today; AH remain quite debilitating and patient did not attend any groups today, unable to concentrate on very much due to internal preoccupation. 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 -patient is a candidate for ECT if medication management does not resolve issue as she has refractory psychotic illness and negative symptoms 12/28 1st time patient said voices are little better, talking a little less; continue current treatment plan 12/29 mild improvements, patient showered, AH remains a little less talkative overall but still quite problematic, evidenced by her continued isolation, significant psychomotor retardation, speech latency; discussed speech latency and patient said she is just very distracted by the voices. Discussed medications and she agreed to go up on Clozaril. 12/30 Patient feeling extra tired this morning which she agrees is likely from last night's increased Clozaril. Not much has changed, voices remain quite problematic though less over the past couple days. She agrees to continue at this current new dose and see how things go. Will get labs 01/03 voices got a little worse this afternoon, telling her to keep the door open, which is reminiscent of AH prior to admission that proved controlling and hard for her to dismiss. Discussed case with her sister Griselda who is also healthcare proxy and present on the unit, as well as patient; discussed risks/side effects of medication regimen and all agreed to go up on Clozaril for now -though she has improved some, she is far from baseline, remains impaired and vulnerable to quickly decompensated further and taking direction from ; possibly because [place] eyes are coming due 01/04 AH has intensified somewhat. Patient is coming due for long-acting injectables which may be contributing to recently worsening AH. Patient due for Haldol Decanoate 100 mg which she received today 01/04 Tomorrow patient due for Invega Sustenna 234 mg PLAN: CV Q 15 minute checks Clonazepam 1mg qhs . Clozaril 125 mg 14:00 Continue Clozaril 325 mg q.h.s.; increased on 01/03 (used to be on 250mg at home; at [facility] increased 275) GIVE Haldol Decanoate 100 mg (last received 12/21) given every q.2 weeks Magnesium oxide 500 mg Q 17:00; for treatment for psychotic symptoms Haldol 5 mg b.i.d. p.r.n. Continue Haldol 10 mg b.i.d. for now given patient is behind on Haldol and suffering from AH; plan will be to taper and eventually DC Invega Sustenna 234 mg Q 30 days- last dose administered 12/06/23 Thyroid 60 mg daily Omeprazole [address] 240mg BID for MS involve guardian in treatment discharge planning with team Patient educated on: diagnosis, medication risk/benefits and therapeutic strategies Informed Consent: understands Reason for continued inpatient stay Substantial Risk for: inability to function Time Spent With Patient Time: Total time managing care of this patient today ____ minutes.
[2024-01-05] MEDS: cloZAPine 100 MG, cloZAPine 25 MG 125 MG PO (13:35)
[2024-01-05] MEDS: Haloperidol Decanoate 50 MG/ML VIAL 100 MG IM (13:48)
[2024-01-05] MEDS: clonazePAM 1 MG TABLET PO (17:06)
[2024-01-05 20:00] VITALS: BP 118/82; PULSE 120; RESP 18
[2024-01-05 20:18] VITALS: BP 118/82; PULSE 120
[2024-01-05] MEDS: Magnesium Oxide 400 MG TABLET 500 MG PO (20:18)
[2024-01-06] MEDS: Thyroid,Pork 30 MG TABLET 60 MG PO (06:00)
[2024-01-06] MEDS: Omeprazole 20 MG CAPSULE.DR PO (06:38)
[2024-01-06] MEDS: Haloperidol Lactate Oral Conc 10 MG/5 ML ORAL.CONC PO ×2 (09:42→20:48)
[2024-01-06] MEDS: Folic Acid 1 MG TABLET PO (09:42)
[2024-01-06] MEDS: Multivitamin TABLET 1 TAB PO (09:42)
[2024-01-06] MEDS: Benztropine Mesylate 1 MG TABLET PO ×2 (09:43→20:48)
[2024-01-06] MEDS: Loratadine 10 MG TABLET PO (09:44)
[2024-01-06 09:45] VITALS: BP 114/71; PULSE 91
[2024-01-06] MEDS: Propranolol HCL 10 MG TABLET PO ×2 (09:45→20:48)
[2024-01-06 09:53] VITALS: BP 114/71; PULSE 91; RESP 17; TEMP 36.5; O2SAT 98
[2024-01-06 13:08] LABS: Creatinine Clr Calc Pharmacy 99.7; Estimated Glomerular Filt Rate > 60
[2024-01-06] MEDS: Paliperidone Palmitate 234 MG/1.5 ML SYRINGE IM (13:54)
[2024-01-06] MEDS: cloZAPine 100 MG, cloZAPine 25 MG 125 MG PO (14:00)
[2024-01-06] MEDS: Docusate Sodium 100 MG CAPSULE PO ×2 (14:01→20:47)
[2024-01-06] MEDS: clonazePAM 1 MG TABLET PO (16:33)
[2024-01-06 19:42] VITALS: BP 100/58; PULSE 109; RESP 16; TEMP 36.7; O2SAT 97
[2024-01-06] MEDS: Magnesium Oxide 400 MG TABLET 500 MG PO (20:48)
--- NOTE | 2024-01-07 | ECG_ITS ---
Test Reason : qt Blood Pressure : / mmHG Vent. Rate : 112 BPM Atrial Rate : 112 BPM P-R Int : 134 ms QRS Dur : 082 ms QT Int : 332 ms P-R-T Axes : 058 060 012 degrees QTc Int : 453 ms Sinus tachycardia Cannot rule out Anterior infarct , age undetermined Abnormal ECG When compared with ECG of 22-DEC-2023 13:26, No significant change was found Referred By: Jose Miguel Kerns Electronically Signed By:MY ROSALES
[2024-01-07 08:00] VITALS: BP 108/55; PULSE 80; RESP 16; TEMP 36.5; O2SAT 98
[2024-01-07 09:03] VITALS: BP 100/60; PULSE 86
[2024-01-07] MEDS: Benztropine Mesylate 1 MG TABLET PO ×2 (09:03→21:45)
[2024-01-07] MEDS: Omeprazole 20 MG CAPSULE.DR PO (09:03)
[2024-01-07] MEDS: Propranolol HCL 10 MG TABLET PO ×2 (09:03→21:45)
[2024-01-07] MEDS: Loratadine 10 MG TABLET PO (09:03)
[2024-01-07] MEDS: Thyroid,Pork 30 MG TABLET 60 MG PO (09:03)
[2024-01-07] MEDS: Multivitamin TABLET 1 TAB PO (09:04)
[2024-01-07] MEDS: Docusate Sodium 100 MG CAPSULE PO ×2 (09:04→21:46)
[2024-01-07] MEDS: Haloperidol Lactate Oral Conc 10 MG/5 ML ORAL.CONC PO ×2 (09:04→21:46)
[2024-01-07] MEDS: Folic Acid 1 MG TABLET PO (09:04)
[2024-01-07 09:56] LABS: Neut%MD 54.5 %; Neutrophils Absolute Auto 3.6 x10*3/uL (2.0-8.3); WBCANC 6.6 X10*3/uL
[2024-01-07] MEDS: cloZAPine 100 MG, cloZAPine 25 MG 125 MG PO (14:40)
--- NOTE | 2024-01-07 17:11 | P.PNPSI_ITS ---
Subjective Subjective Date of Service: 01/06/24 Reason For Visit: SCHIZOPHRENIA, SI Interim History: late entry note for pt seen on 01/05 Patient reports voices a little better but still bothersome and she remains with significant thought blocking and blunted affect. Voices are a little more directive telling her to keep her door open which she does. Etl Analyst asked about trying to refuse voices; pt says this just makes them stronger. She is dressed in casual cloths, first time this admission. Pt is due for Invega Sustenna which she received today Mental Status Exam Mental Status Exam Narrative: Pt is alert and oriented; behavior is cooperative, friendly, isolative, quiet; patient is not in distress; dressed in casual attire and well groomed today; mood is described as ok and affect congruent, a little more expressive, still blunted, but less than on admission; eye contact appropriate more of a blank stare; Speech with thought blocking, latency; still slowed and soft; still significant psychomotor retardation present; thought process is goal directed and seems organized; Thought content is on tx for AH; denies delusional thinking and none expressed; no SI/no HI. +AH Patients insight and judgment though has improved some, remains impaired and vulnerable to taking direction from Diagnostics Vital Signs (24Hr): Vital Signs - 24 hr 01/06/24 19:42 01/07/24 08:00 01/07/24 09:03 Temperature 98.0 F 97.7 F Pulse Rate 109 H 80 86 Respiratory Rate 16 16 Blood Pressure 100/58 L 108/55 L 100/60 Pulse Oximetry 97 98 Oxygen Delivery Method Room Air Room Air BMI result Body Mass Index 31.4 Labs 01/06/24 12:45 Labs: Laboratory Results - last 48 hr 01/06/24 01/07/24 12:45 09:42 Absolute Neuts (auto) 3.6 Creatinine 0.81 Estim Creat Clear Calc 99.7 Estimated GFR > 60 Medications Medications Current Medications Acetaminophen (Acetaminophen 325 Mg Tablet) 650 mg PO Q6H PRN PRN Reason: Headache/Pain Mild Scale (1-3) Last Admin: 12/22/23 21:25 Dose: 650 mg Al Hydroxide/Mg Hydroxide (Magnesium Hydrox/Alum Hydrox 30 Ml Oral.Susp) 30 ml PO Q6H PRN PRN Reason: Heartburn/Nausea Albuterol Sulfate (Albuterol Sulfate 90 Mcg 8 Gm Inhaler) 2 puff INHALE RQ4H PRN PRN Reason: Shortness of Breath Last Admin: 01/02/24 21:42 Dose: 2 puff Benztropine Mesylate (Benztropine Mesylate 1 Mg Tablet) 1 mg PO BID [facility] Last Admin: 01/07/24 09:03 Dose: 1 mg Clonazepam (Clonazepam 0.5 Mg Tablet) 0.5 mg PO BID PRN PRN Reason: Anxiety Last Admin: 12/21/23 19:57 Dose: 0.5 mg Clonazepam (Clonazepam 1 Mg Tablet) 1 mg PO DAILY@1700 [facility] Last Admin: 01/06/24 16:33 Dose: 1 mg Clozapine 100 mg/ Clozapine 25 (mg) 125 mg PO 1400 [facility] Last Admin: 01/07/24 14:40 Dose: 125 mg Clozapine 300 mg/ Clozapine 50 (mg) 350 mg PO BEDTIME [facility] Last Admin: 01/06/24 20:47 Dose: 350 mg Docusate Sodium (Docusate Sodium 100 Mg Capsule) 100 mg PO BID [facility] Last Admin: 01/07/24 09:04 Dose: 100 mg Fluticasone Propionate (Fluticasone Propionate Nasal 16 Gm Bloomer) 1 spray NOSTRIL-B DAILY PRN PRN Reason: nasal congestion Folic Acid (Folic Acid 1 Mg Tablet) 1 mg PO DAILY [facility] Last Admin: 01/07/24 09:04 Dose: 1 mg Haloperidol Decanoate (Haloperidol Decanoate 50 Mg/Ml Vial) 100 mg IM Q14D [facility] Last Admin: 01/05/24 13:48 Dose: 100 mg Haloperidol Lactate (Haloperidol Lactate Oral Conc 10 Mg/5 Ml Oral.Conc) 5 mg PO BID PRN PRN Reason: agitation Last Admin: 12/30/23 22:13 Dose: 5 mg Haloperidol Lactate (Haloperidol Lactate Oral Conc 10 Mg/5 Ml Oral.Conc) 10 mg PO BID [facility] Last Admin: 01/07/24 09:04 Dose: 10 mg Hydroxyzine HCl (Hydroxyzine Hcl 25 Mg Tablet) 25 mg PO Q6H PRN PRN Reason: Anxiety Last Admin: 12/25/23 14:46 Dose: 25 mg Loratadine (Loratadine 10 Mg Tablet) 10 mg PO DAILY [facility] Last Admin: 01/07/24 09:03 Dose: 10 mg Magnesium Hydroxide (Milk Of Magnesia 30 Ml Oral.Susp) 30 ml PO DAILY PRN PRN Reason: Constipation Magnesium Oxide (Magnesium Oxide 400 Mg Tablet) 500 mg PO BEDTIME [facility] Last Admin: 01/06/24 20:48 Dose: 500 mg Multivitamins/Vitamin C (Multivitamin Tablet) 1 tab PO DAILY [facility] Last Admin: 01/07/24 09:04 Dose: 1 tab Patient Own ( (Tecfidera Dr 240 Mg)) 240 mg PO BID [facility] Last Admin: 01/07/24 09:02 Dose: 240 mg Omeprazole (Omeprazole 20 Mg Capsule.Dr) 20 mg PO DAILY@0630 [facility] Last Admin: 01/07/24 09:03 Dose: 20 mg Paliperidone Palmitate (Paliperidone Palmitate 234 Mg/1.5 Ml Syringe) 234 mg IM Q30D [facility] Last Admin: 01/06/24 13:54 Dose: 234 mg Polyethylene Glycol (Polyethylene Glycol 3350 17 Gm Powd.Pack) 17 gm PO DAILY PRN PRN Reason: ongoing Constipation Propranolol HCl (Propranolol Hcl 10 Mg Tablet) 10 mg PO BID [facility]; Protocol Last Admin: 01/07/24 09:03 Dose: 10 mg Thyroid (Thyroid,Pork 30 Mg Tablet) 60 mg PO DAILY@0600 [facility] Last Admin: 01/07/24 09:03 Dose: 60 mg Vitamin A/Vitamin D (A And D Ointment 56.7 Gm Tube) 1 appl TOPICAL BID [facility]; Protocol Last Admin: 01/07/24 09:08 Dose: Not Given Allergies Allergies Allergy/AdvReac Type Severity Reaction Status Date / Time Pork/Porcine Containing Allergy Unknown RASH Verified 12/28/23 14:54 Products [PORK/PORCINE CONTAINING PRODUCTS] ALPHA LIPOIC ACID Allergy Unknown Uncoded 10/17/23 02:24 WIRING MECHANIC-3 THYROID TOXICITY Allergy Unknown Uncoded 10/17/23 02:24 Assessment & Plan Assessment & Plan (1) Schizoaffective disorder: Qualifiers: Schizoaffective disorder type: depressive Qualified Code(s): F25.1 - Schizoaffective disorder, depressive type Status: Acute Code(s): F25.9 - Schizoaffective disorder, unspecified (2) PTSD (post-traumatic stress disorder): Status: Acute Code(s): F43.10 - Post-traumatic stress disorder, unspecified (3) Multiple sclerosis: Status: Acute Code(s): G35 - Multiple sclerosis (4) Mild persistent asthma: Status: Acute Code(s): J45.30 - Mild persistent asthma, uncomplicated Plan 38-year-old female, history of schizoaffective disorder, direct admission from [facility], where patient had presented with worsening auditory hallucinations and SI. Patient is resident at [facility] for around 10 years. Patient was recently discharged from [facility] where she was admitted on 12/07. She has had several recent admissions to [facility] she was admitted to [facility] inpatient on 10/17/2023 and then again on 11/07/2023. Pt has a [facility] and [facility] order in place, with some information available in the chart, but details around actual medications appears to be missing. Patient states that she received her Haldol Decanoate injection 6 days ago while in [facility]. patient reports today hearing voices telling her to go right to go left. Pt stares blankly at times; appears to be internally preoccupied. She is difficult to engage in interview; she appears anxious. denies SI or HI This check writer salesperson spoke to Griselda DONYA, patient's guardian: Her concerns are to try to help Anjali get back to baseline she had 2 years stability while at the [facility]. She reports that there have been problems with medication, getting the correct medication on time due to a number of factors difficulty with the rims certification, difficulty with the [facility] not having the correct equipment when her injection was done was due, and after different hospitalizations medication list at discharge was not complete and the residential home was unable to correct her medication list. Griselda wonders if her sister could be placed in a long-term care nursing facility for more consistent care. Hospital course: 12/19/23 continue tx plan, hold haldol deconoate until can verify last given dose from [facility] or [facility], encourage PO intake 12/20/23 cont tx 12/20 pt reports continued incessant AH, however they are only saying things like go straight...go left...go right and no longer saying mean, provoking things. Pt asked for higher Haldol dose saying she was supposed to have it available but it was only started yesterday. She says that until about a month ago, she was doing quite well, but then her medications got changed/missed and since then she's decompensated with AH. She's not sure why her medications were changed. To her recollection she recieved Haldol Dec when she was at [facility] about a week ago. -Pt gave permission to call sister/HCP and gave Griselda's phone number. 12/21 Patient continues to report auditory hallucinations however they are still just giving her directions to follow., go left, go right.. Which she says is an improvement and they are no longer saying nasty things. Patient remains convinced that she received Haldol Decanoate at [facility]; however she accepts the [facility] providers report to this check writer salesperson that she did not receive it and agrees to get a now. Collateral: 1.Etl Analyst discussed case with patient's sister Griselda: pt doing well on regimen (clozapine, invega sustenna, Haldol Dec +prn) until this past august when she got dx with MS and was hospitalized during which time Invega held and that and other psych meds accidentally not restarted (or delayed...). AH returned and since then, patients sister has been trying to get proper med regimen restarted (at one pt there was problem with clozapine rems). Reviewed list of meds and will change accordingly (increasing mag-oxide to 500mg which is her outpt dose and helped reduce need for clozapine) 2.Etl Analyst [facility] who reports that pt was NOT given Haldol Dec or any other long acting med while there. She did increase her Clozapine to 175mg at 2pm and 275mg at 5pm. 12/22 remains with troubling AH, negative symptoms; continue treatment plan 12/26 pt reports that AH remain the same, no less intensity. However, but is much brighter, smiling at times, says she feels ok and has been out of her room attending groups...She agrees that this behavior may signify improvement at least in her mood, if not her ability to ignore voices. -continue current tx regimen -will consider increasing clozapine 6/ more thought blocking today; AH remain quite debilitating and patient did not attend any groups today, unable to concentrate on very much due to internal preoccupation. Agrees to go up on Clozaril for now -patient reviewed her allergy list and says she has not allergic to trazodone nor she allergic to alpha lipoic acid, WIRING MECHANIC 3 thyroid; also that pork allergy does not cross over to medications. -patient is a candidate for ECT if medication management does not resolve issue as she has refractory psychotic illness and negative symptoms 12/28 1st time patient said voices are little better, talking a little less; continue current treatment plan 12/29 mild improvements, patient showered, AH remains a little less talkative overall but still quite problematic, evidenced by her continued isolation, significant psychomotor retardation, speech latency; discussed speech latency and patient said she is just very distracted by the voices. Discussed medications and she agreed to go up on Clozaril. 12/30 Patient feeling extra tired this morning which she agrees is likely from last night's increased Clozaril. Not much has changed, voices remain quite problematic though less over the past couple days. She agrees to continue at this current new dose and see how things go. Will get labs 01/03 voices got a little worse this afternoon, telling her to keep the door open, which is reminiscent of AH prior to admission that proved controlling and hard for her to dismiss. Discussed case with her sister Griselda who is also healthcare proxy and present on the unit, as well as patient; discussed risks/side effects of medication regimen and all agreed to go up on Clozaril for now -though she has improved some, she is far from baseline, remains impaired and vulnerable to quickly decompensated further and taking direction from ; possibly because [place] eyes are coming due 01/04 AH has intensified somewhat. Patient is coming due for long-acting injectables which may be contributing to recently worsening AH. Patient due for Haldol Decanoate 100 mg which she received today 01/04 Tomorrow patient due for Invega Sustenna 234 mg 01/05 Voices a little less; received Invega sustenna 234mg PLAN: CV Q 15 minute checks Clonazepam 1mg qhs . Clozaril 125 mg 14:00 Continue Clozaril 325 mg q.h.s.; increased on 01/03 (used to be on 250mg at home; at [facility] increased 275) Received Haldol Decanoate 100 mg on 01/04 (last received 12/21) given every q.2 weeks Magnesium oxide 500 mg Q 17:00; for treatment for psychotic symptoms Haldol 5 mg b.i.d. p.r.n. Continue Haldol 10 mg b.i.d. for now given patient is behind on Haldol and suffering from AH; plan will be to taper and eventually DC ReceivedInvega Sustenna 234 mg on 01/05 Q30 days- last dose administered 12/06/23 Thyroid 60 mg daily Omeprazole [address] 240mg BID for MS involve guardian in treatment discharge planning with team Patient educated on: diagnosis, medication risk/benefits and therapeutic strategies Informed Consent: understands and further education needed Reason for continued inpatient stay Substantial Risk for: inability to function Time Spent With Patient Time: Total time managing care of this patient today ____ minutes.
--- NOTE | 2024-01-07 17:12 | P.PNPSI_ITS ---
Subjective Subjective Date of Service: 01/07/24 Reason For Visit: SCHIZOPHRENIA, SI Interim History: met with pt; discussed in team pt tried to get manic peer to pray; explains that this person was saying disrespectful things about god and so pt was trying to set her straight. Pt accepted direction to refrain from this interaction. same Mental Status Exam Mental Status Exam Narrative: Pt is alert and oriented; behavior is cooperative, friendly, isolative, quiet; patient is not in distress; dressed in casual attire and well groomed today; mood is described as ok and affect congruent, a little more expressive, still blunted, but less than on admission; eye contact appropriate more of a blank stare; Speech with thought blocking, latency; still slowed and soft; still significant psychomotor retardation present; thought process is goal directed and seems organized; Thought content is on tx for ; denies delusional thinking and none expressed; no SI/no HI. + Patients insight and judgment though has improved some, remains impaired and vulnerable to taking direction from Diagnostics Vital Signs (24Hr): Vital Signs - 24 hr 01/06/24 19:42 01/07/24 08:00 01/07/24 09:03 Temperature 98.0 F 97.7 F Pulse Rate 109 H 80 86 Respiratory Rate 16 16 Blood Pressure 100/58 L 108/55 L 100/60 Pulse Oximetry 97 98 Oxygen Delivery Method Room Air Room Air BMI result Body Mass Index 31.4 Labs 01/06/24 12:45 Labs: Laboratory Results - last 48 hr 01/06/24 01/07/24 12:45 09:42 Absolute Neuts (auto) 3.6 Creatinine 0.81 Estim Creat Clear Calc 99.7 Estimated GFR > 60 Medications Medications Current Medications Acetaminophen (Acetaminophen 325 Mg Tablet) 650 mg PO Q6H PRN PRN Reason: Headache/Pain Mild Scale (1-3) Last Admin: 12/22/23 21:25 Dose: 650 mg Al Hydroxide/Mg Hydroxide (Magnesium Hydrox/Alum Hydrox 30 Ml Oral.Susp) 30 ml PO Q6H PRN PRN Reason: Heartburn/Nausea Albuterol Sulfate (Albuterol Sulfate 90 Mcg 8 Gm Inhaler) 2 puff INHALE RQ4H PRN PRN Reason: Shortness of Breath Last Admin: 01/02/24 21:42 Dose: 2 puff Benztropine Mesylate (Benztropine Mesylate 1 Mg Tablet) 1 mg PO BID [facility] Last Admin: 01/07/24 09:03 Dose: 1 mg Clonazepam (Clonazepam 0.5 Mg Tablet) 0.5 mg PO BID PRN PRN Reason: Anxiety Last Admin: 12/21/23 19:57 Dose: 0.5 mg Clonazepam (Clonazepam 1 Mg Tablet) 1 mg PO DAILY@1700 [facility] Last Admin: 01/06/24 16:33 Dose: 1 mg Clozapine 100 mg/ Clozapine 25 (mg) 125 mg PO 1400 [facility] Last Admin: 01/07/24 14:40 Dose: 125 mg Clozapine 300 mg/ Clozapine 50 (mg) 350 mg PO BEDTIME [facility] Last Admin: 01/06/24 20:47 Dose: 350 mg Docusate Sodium (Docusate Sodium 100 Mg Capsule) 100 mg PO BID [facility] Last Admin: 01/07/24 09:04 Dose: 100 mg Fluticasone Propionate (Fluticasone Propionate Nasal 16 Gm [place]) 1 spray NOSTRIL-B DAILY PRN PRN Reason: nasal congestion Folic Acid (Folic Acid 1 Mg Tablet) 1 mg PO DAILY [facility] Last Admin: 01/07/24 09:04 Dose: 1 mg Haloperidol Decanoate (Haloperidol Decanoate 50 Mg/Ml Vial) 100 mg IM Q14D [facility] Last Admin: 01/05/24 13:48 Dose: 100 mg Haloperidol Lactate (Haloperidol Lactate Oral Conc 10 Mg/5 Ml Oral.Conc) 5 mg PO BID PRN PRN Reason: agitation Last Admin: 12/30/23 22:13 Dose: 5 mg Haloperidol Lactate (Haloperidol Lactate Oral Conc 10 Mg/5 Ml Oral.Conc) 10 mg PO BID [facility] Last Admin: 01/07/24 09:04 Dose: 10 mg Hydroxyzine HCl (Hydroxyzine Hcl 25 Mg Tablet) 25 mg PO Q6H PRN PRN Reason: Anxiety Last Admin: 12/25/23 14:46 Dose: 25 mg Loratadine (Loratadine 10 Mg Tablet) 10 mg PO DAILY [facility] Last Admin: 01/07/24 09:03 Dose: 10 mg Magnesium Hydroxide (Milk Of Magnesia 30 Ml Oral.Susp) 30 ml PO DAILY PRN PRN Reason: Constipation Magnesium Oxide (Magnesium Oxide 400 Mg Tablet) 500 mg PO BEDTIME [facility] Last Admin: 01/06/24 20:48 Dose: 500 mg Multivitamins/Vitamin C (Multivitamin Tablet) 1 tab PO DAILY [facility] Last Admin: 01/07/24 09:04 Dose: 1 tab Patient Own ( (Tecfidera Dr 240 Mg)) 240 mg PO BID [facility] Last Admin: 01/07/24 09:02 Dose: 240 mg Omeprazole (Omeprazole 20 Mg Capsule.Dr) 20 mg PO DAILY@0630 [facility] Last Admin: 01/07/24 09:03 Dose: 20 mg Paliperidone Palmitate (Paliperidone Palmitate 234 Mg/1.5 Ml Syringe) 234 mg IM Q30D [facility] Last Admin: 01/06/24 13:54 Dose: 234 mg Polyethylene Glycol (Polyethylene Glycol 3350 17 Gm Powd.Pack) 17 gm PO DAILY PRN PRN Reason: ongoing Constipation Propranolol HCl (Propranolol Hcl 10 Mg Tablet) 10 mg PO BID [facility]; Protocol Last Admin: 01/07/24 09:03 Dose: 10 mg Thyroid (Thyroid,Pork 30 Mg Tablet) 60 mg PO DAILY@0600 [facility] Last Admin: 01/07/24 09:03 Dose: 60 mg Vitamin A/Vitamin D (A And D Ointment 56.7 Gm Tube) 1 appl TOPICAL BID [facility]; Protocol Last Admin: 01/07/24 09:08 Dose: Not Given Allergies Allergies Allergy/AdvReac Type Severity Reaction Status Date / Time Pork/Porcine Containing Allergy Unknown RASH Verified 12/28/23 14:54 Products [PORK/PORCINE CONTAINING PRODUCTS] ALPHA LIPOIC ACID Allergy Unknown Uncoded 10/17/23 02:24 [employer]-3 THYROID TOXICITY Allergy Unknown Uncoded 10/17/23 02:24 Assessment & Plan Assessment & Plan (1) Schizoaffective disorder: Qualifiers: Schizoaffective disorder type: depressive Qualified Code(s): F25.1 - Schizoaffective disorder, depressive type Status: Acute Code(s): F25.9 - Schizoaffective disorder, unspecified (2) PTSD (post-traumatic stress disorder): Status: Acute Code(s): F43.10 - Post-traumatic stress disorder, unspecified (3) Multiple sclerosis: Status: Acute Code(s): G35 - Multiple sclerosis (4) Mild persistent asthma: Status: Acute Code(s): J45.30 - Mild persistent asthma, uncomplicated Plan 38-year-old female, history of schizoaffective disorder, direct admission from [facility], where patient had presented with worsening auditory hallucinations and SI. Patient is resident at [facility] for around 10 years. Patient was recently discharged from [facility] where she was admitted on 12/07. She has had several recent admissions to [facility] she was admitted to [facility] inpatient on 10/17/2023 and then again on 11/07/2023. Pt has a [facility] and [facility] order in place, with some information available in the chart, but details around actual medications appears to be missing. Patient states that she received her Haldol Decanoate injection 6 days ago while in [facility]. patient reports today hearing voices telling her to go right to go left. Pt stares blankly at times; appears to be internally preoccupied. She is difficult to engage in interview; she appears anxious. denies SI or HI This web content writer spoke to Griselda RAMOSDEZ, patient's guardian: Her concerns are to try to help Anjali get back to baseline she had 2 years stability while at the [facility]. She reports that there have been problems with medication, getting the correct medication on time due to a number of factors difficulty with the rims certification, difficulty with the [facility] not having the correct equipment when her injection was done was due, and after different hospitalizations medication list at discharge was not complete and the residential home was unable to correct her medication list. Griselda wonders if her sister could be placed in a long-term care nursing facility for more consistent care. Hospital course: 12/19/23 continue tx plan, hold haldol deconoate until can verify last given dose from [facility] or [facility], encourage PO intake 12/20/23 cont tx 12/20 pt reports continued incessant AH, however they are only saying things like go straight...go left...go right and no longer saying mean, provoking things. Pt asked for higher Haldol dose saying she was supposed to have it available but it was only started yesterday. She says that until about a month ago, she was doing quite well, but then her medications got changed/missed and since then she's decompensated with AH. She's not sure why her medications were changed. To her recollection she recieved Haldol Dec when she was at [facility] about a week ago. -Pt gave permission to call sister/HCP and gave Griselda's phone number. 12/21 Patient continues to report auditory hallucinations however they are still just giving her directions to follow., go left, go right.. Which she says is an improvement and they are no longer saying nasty things. Patient remains convinced that she received Haldol Decanoate at [facility]; however she accepts the [facility] providers report to this web content writer that she did not receive it and agrees to get a now. Collateral: 1.Voltage Tester discussed case with patient's sister Griselda: pt doing well on regimen (clozapine, invega sustenna, Haldol Dec +prn) until this past august when she got dx with MS and was hospitalized during which time Invega held and that and other psych meds accidentally not restarted (or delayed...). AH returned and since then, patients sister has been trying to get proper med regimen restarted (at one pt there was problem with clozapine rems). Reviewed list of meds and will change accordingly (increasing mag-oxide to 500mg which is her outpt dose and helped reduce need for clozapine) 2.Voltage Tester [facility] reports that pt was NOT given Haldol Dec or any other long acting med while there. She did increase her Clozapine to 175mg at 2pm and 275mg at 5pm. 12/22 remains with troubling AH, negative symptoms; continue treatment plan 12/26 pt reports that AH remain the same, no less intensity. However, but is much brighter, smiling at times, says she feels ok and has been out of her room attending groups...She agrees that this behavior may signify improvement at least in her mood, if not her ability to ignore voices. -continue current tx regimen -will consider increasing clozapine 6/ more thought blocking today; AH remain quite debilitating and patient did not attend any groups today, unable to concentrate on very much due to internal preoccupation. Agrees to go up on Clozaril for now -patient reviewed her allergy list and says she has not allergic to trazodone nor she allergic to alpha lipoic acid, [employer] 3 thyroid; also that pork allergy does not cross over to medications. -patient is a candidate for ECT if medication management does not resolve issue as she has refractory psychotic illness and negative symptoms 12/28 1st time patient said voices are little better, talking a little less; continue current treatment plan 12/29 mild improvements, patient showered, AH remains a little less talkative overall but still quite problematic, evidenced by her continued isolation, significant psychomotor retardation, speech latency; discussed speech latency and patient said she is just very distracted by the voices. Discussed medications and she agreed to go up on Clozaril. 12/30 Patient feeling extra tired this morning which she agrees is likely from last night's increased Clozaril. Not much has changed, voices remain quite problematic though less over the past couple days. She agrees to continue at this current new dose and see how things go. Will get labs 01/03 voices got a little worse this afternoon, telling her to keep the door open, which is reminiscent of AH prior to admission that proved controlling and hard for her to dismiss. Discussed case with her sister Griselda who is also healthcare proxy and present on the unit, as well as patient; discussed risks/side effects of medication regimen and all agreed to go up on Clozaril for now -though she has improved some, she is far from baseline, remains impaired and vulnerable to quickly decompensated further and taking direction from ; possibly because [place] eyes are coming due 01/04 AH has intensified somewhat. Patient is coming due for long-acting injectables which may be contributing to recently worsening AH. Patient due for Haldol Decanoate 100 mg which she received today 01/04 Tomorrow patient due for Invega Sustenna 234 mg 01/04 AH has intensified somewhat. Patient is coming due for long-acting injectables which may be contributing to recently worsening AH. Patient due for Haldol Decanoate 100 mg which she received today 01/04 Tomorrow patient due for Invega Sustenna 234 mg 01/05 Voices a little less; received Invega sustenna 234mg 01/06 well dressed again; in groups more and a little more outward EKG obtained and Qtc wnl PLAN: CV Q 15 minute checks Clonazepam 1mg qhs . Clozaril 125 mg 14:00 Continue Clozaril 325 mg q.h.s.; increased on 01/03 (used to be on 250mg at home; at [facility] increased 275) Received Haldol Decanoate 100 mg on 01/04 (last received 12/21) given every q.2 weeks Magnesium oxide 500 mg Q 17:00; for treatment for psychotic symptoms Haldol 5 mg b.i.d. p.r.n. Continue Haldol 10 mg b.i.d. for now given patient is behind on Haldol and suffering from AH; plan will be to taper and eventually DC ReceivedInvega Sustenna 234 mg on 01/05 Q30 days- last dose administered 12/06/23 Thyroid 60 mg daily Omeprazole [address] 240mg BID for MS involve guardian in treatment discharge planning with team Patient educated on: diagnosis and medication risk/benefits Informed Consent: understands and further education needed Reason for continued inpatient stay Substantial Risk for: inability to function Time Spent With Patient Time: Total time managing care of this patient today ____ minutes.
[2024-01-07] MEDS: clonazePAM 1 MG TABLET PO (18:04)
[2024-01-07 21:40] VITALS: BP 133/97; PULSE 125; RESP 16; TEMP 36.4; O2SAT 99
[2024-01-07] MEDS: Magnesium Oxide 400 MG TABLET 500 MG PO (21:45)
[2024-01-08] MEDS: hydrOXYzine HCL 25 MG TABLET PO (00:01)
[2024-01-08] MEDS: Magnesium Hydrox/Alum Hydrox 30 ML ORAL.SUSP PO ×2 (03:20→17:17)
[2024-01-08] MEDS: Thyroid,Pork 30 MG TABLET 60 MG PO (06:18)
[2024-01-08] MEDS: Omeprazole 20 MG CAPSULE.DR PO (06:18)
[2024-01-08 08:30] VITALS: BP 108/60; PULSE 86; RESP 16; TEMP 36.4; O2SAT 98
[2024-01-08] MEDS: Haloperidol Lactate Oral Conc 10 MG/5 ML ORAL.CONC PO ×2 (08:53→21:30)
[2024-01-08] MEDS: Folic Acid 1 MG TABLET PO (08:54)
[2024-01-08] MEDS: Loratadine 10 MG TABLET PO (08:54)
[2024-01-08] MEDS: Docusate Sodium 100 MG CAPSULE PO ×2 (08:54→21:30)
[2024-01-08] MEDS: Multivitamin TABLET 1 TAB PO (08:54)
[2024-01-08] MEDS: Propranolol HCL 10 MG TABLET PO ×2 (08:54→21:30)
[2024-01-08] MEDS: Benztropine Mesylate 1 MG TABLET PO ×2 (08:54→21:30)
--- NOTE | 2024-01-08 09:42 | P.PNPSI_ITS ---
Subjective Subjective Date of Service: 01/08/24 Reason For Visit: SCHIZOPHRENIA, SI Interim History: met with patient; discussed with team says AH a little better but conversely they are becoming more directive and telling her which nurses/staff to trust and which ones to not; she has thus been making a list. Digital Photographic Printer did some reality testing and pt says she does not know where the voices come from. Digital Photographic Printer provided education on dx and that voices are not real...she was unsure what she thought about it. discussed meds and she does not want them increased hoping symptoms will continue to improve. Mental Status Exam Mental Status Exam Narrative: Pt is alert and oriented; behavior is cooperative, friendly, isolative, quiet; patient is not in distress; dressed in casual attire and well groomed today; mood is described as ok and affect congruent, a little more expressive, still blunted, but less than on admission; eye contact appropriate more of a blank stare; Speech with thought blocking, latency; still slowed and soft; still significant psychomotor retardation present; thought process is goal directed and seems organized; Thought content is on tx for AH; denies delusional thinking and none expressed; no SI/no HI. +AH Patients insight and judgment though has improved some, remains impaired and vulnerable to taking direction from Diagnostics Vital Signs (24Hr): Vital Signs - 24 hr 01/07/24 21:40 01/08/24 08:30 Temperature 97.5 F 97.5 F Pulse Rate 125 H 86 Respiratory Rate 16 16 Blood Pressure 133/97 H 108/60 Pulse Oximetry 99 98 Oxygen Delivery Method Room Air Room Air BMI result Body Mass Index 31.4 Labs 01/06/24 12:45 Labs: Laboratory Results - last 48 hr 01/06/24 01/07/24 12:45 09:42 Absolute Neuts (auto) 3.6 Creatinine 0.81 Estim Creat Clear Calc 99.7 Estimated GFR > 60 Medications Medications Current Medications Acetaminophen (Acetaminophen 325 Mg Tablet) 650 mg PO Q6H PRN PRN Reason: Headache/Pain Mild Scale (1-3) Last Admin: 12/22/23 21:25 Dose: 650 mg Al Hydroxide/Mg Hydroxide (Magnesium Hydrox/Alum Hydrox 30 Ml Oral.Susp) 30 ml PO Q6H PRN PRN Reason: Heartburn/Nausea Last Admin: 01/08/24 03:20 Dose: 30 ml Albuterol Sulfate (Albuterol Sulfate 90 Mcg 8 Gm Inhaler) 2 puff INHALE RQ4H PRN PRN Reason: Shortness of Breath Last Admin: 01/02/24 21:42 Dose: 2 puff Benztropine Mesylate (Benztropine Mesylate 1 Mg Tablet) 1 mg PO BID [facility] Last Admin: 01/08/24 08:54 Dose: 1 mg Clonazepam (Clonazepam 0.5 Mg Tablet) 0.5 mg PO BID PRN PRN Reason: Anxiety Last Admin: 12/21/23 19:57 Dose: 0.5 mg Clonazepam (Clonazepam 1 Mg Tablet) 1 mg PO DAILY@1700 [facility] Last Admin: 01/07/24 18:04 Dose: 1 mg Clozapine 100 mg/ Clozapine 25 (mg) 125 mg PO 1400 [facility] Last Admin: 01/07/24 14:40 Dose: 125 mg Clozapine 300 mg/ Clozapine 50 (mg) 350 mg PO BEDTIME [facility] Last Admin: 01/07/24 21:45 Dose: 350 mg Docusate Sodium (Docusate Sodium 100 Mg Capsule) 100 mg PO BID [facility] Last Admin: 01/08/24 08:54 Dose: 100 mg Fluticasone Propionate (Fluticasone Propionate Nasal 16 Gm [place]) 1 spray NOSTRIL-B DAILY PRN PRN Reason: nasal congestion Folic Acid (Folic Acid 1 Mg Tablet) 1 mg PO DAILY [facility] Last Admin: 01/08/24 08:54 Dose: 1 mg Haloperidol Decanoate (Haloperidol Decanoate 50 Mg/Ml Vial) 100 mg IM Q14D [facility] Last Admin: 01/05/24 13:48 Dose: 100 mg Haloperidol Lactate (Haloperidol Lactate Oral Conc 10 Mg/5 Ml Oral.Conc) 5 mg PO BID PRN PRN Reason: agitation Last Admin: 12/30/23 22:13 Dose: 5 mg Haloperidol Lactate (Haloperidol Lactate Oral Conc 10 Mg/5 Ml Oral.Conc) 10 mg PO BID [facility] Last Admin: 01/08/24 08:53 Dose: 10 mg Hydroxyzine HCl (Hydroxyzine Hcl 25 Mg Tablet) 25 mg PO Q6H PRN PRN Reason: Anxiety Last Admin: 01/08/24 00:01 Dose: 25 mg Loratadine (Loratadine 10 Mg Tablet) 10 mg PO DAILY [facility] Last Admin: 01/08/24 08:54 Dose: 10 mg Magnesium Hydroxide (Milk Of Magnesia 30 Ml Oral.Susp) 30 ml PO DAILY PRN PRN Reason: Constipation Magnesium Oxide (Magnesium Oxide 400 Mg Tablet) 500 mg PO BEDTIME [facility] Last Admin: 01/07/24 21:45 Dose: 500 mg Multivitamins/Vitamin C (Multivitamin Tablet) 1 tab PO DAILY [facility] Last Admin: 01/08/24 08:54 Dose: 1 tab Patient Own ( (Tecfidera Dr 240 Mg)) 240 mg PO BID [facility] Last Admin: 01/08/24 08:53 Dose: 240 mg Omeprazole (Omeprazole 20 Mg Capsule.Dr) 20 mg PO DAILY@0630 [facility] Last Admin: 01/08/24 06:18 Dose: 20 mg Paliperidone Palmitate (Paliperidone Palmitate 234 Mg/1.5 Ml Syringe) 234 mg IM Q30D [facility] Last Admin: 01/06/24 13:54 Dose: 234 mg Polyethylene Glycol (Polyethylene Glycol 3350 17 Gm Powd.Pack) 17 gm PO DAILY PRN PRN Reason: ongoing Constipation Propranolol HCl (Propranolol Hcl 10 Mg Tablet) 10 mg PO BID [facility]; Protocol Last Admin: 01/08/24 08:54 Dose: 10 mg Thyroid (Thyroid,Pork 30 Mg Tablet) 60 mg PO DAILY@0600 [facility] Last Admin: 01/08/24 06:18 Dose: 60 mg Vitamin A/Vitamin D (A And D Ointment 56.7 Gm Tube) 1 appl TOPICAL BID [facility]; Protocol Last Admin: 01/08/24 08:55 Dose: Not Given Allergies Allergies Allergy/AdvReac Type Severity Reaction Status Date / Time Pork/Porcine Containing Allergy Unknown RASH Verified 12/28/23 14:54 Products [PORK/PORCINE CONTAINING PRODUCTS] ALPHA LIPOIC ACID Allergy Unknown Uncoded 10/17/23 02:24 [employer]-3 THYROID TOXICITY Allergy Unknown Uncoded 10/17/23 02:24 Assessment & Plan Assessment & Plan (1) Schizoaffective disorder: Qualifiers: Schizoaffective disorder type: depressive Qualified Code(s): F25.1 - Schizoaffective disorder, depressive type Status: Acute Code(s): F25.9 - Schizoaffective disorder, unspecified (2) PTSD (post-traumatic stress disorder): Status: Acute Code(s): F43.10 - Post-traumatic stress disorder, unspecified (3) Multiple sclerosis: Status: Acute Code(s): G35 - Multiple sclerosis (4) Mild persistent asthma: Status: Acute Code(s): J45.30 - Mild persistent asthma, uncomplicated Plan 38-year-old female, history of schizoaffective disorder, direct admission from [facility], where patient had presented with worsening auditory hallucinations and SI. Patient is resident at [facility] for around 10 years. Patient was recently discharged from [facility] where she was admitted on 12/07. She has had several recent admissions to [facility] she was admitted to [facility] inpatient on 10/17/2023 and then again on 11/07/2023. Pt has a [facility] and [facility] order in place, with some information available in the chart, but details around actual medications appears to be missing. Patient states that she received her Haldol Decanoate injection 6 days ago while in [facility]. patient reports today hearing voices telling her to go right to go left. Pt stares blankly at times; appears to be internally preoccupied. She is difficult to engage in interview; she appears anxious. denies SI or HI This television writer spoke to Griselda DONYA, patient's guardian: Her concerns are to try to help Anjali get back to baseline she had 2 years stability while at the [facility]. She reports that there have been problems with medication, getting the correct medication on time due to a number of factors difficulty with the rims certification, difficulty with the [facility] not having the correct equipment when her injection was done was due, and after different hospitalizations medication list at discharge was not complete and the residential home was unable to correct her medication list. Griselda wonders if her sister could be placed in a long-term care nursing facility for more consistent care. Hospital course: 12/19/23 continue tx plan, hold haldol deconoate until can verify last given dose from [facility] or [facility], encourage PO intake 12/20/23 cont tx 12/20 pt reports continued incessant AH, however they are only saying things like go straight...go left...go right and no longer saying mean, provoking things. Pt asked for higher Haldol dose saying she was supposed to have it available but it was only started yesterday. She says that until about a month ago, she was doing quite well, but then her medications got changed/missed and since then she's decompensated with AH. She's not sure why her medications were changed. To her recollection she recieved Haldol Dec when she was at [facility] about a week ago. -Pt gave permission to call sister/HCP and gave Griselda's phone number. 12/21 Patient continues to report auditory hallucinations however they are still just giving her directions to follow., go left, go right.. Which she says is an improvement and they are no longer saying nasty things. Patient remains convinced that she received Haldol Decanoate at [facility]; however she accepts the [facility] providers report to this television writer that she did not receive it and agrees to get a now. Collateral: 1.Digital Photographic Printer discussed case with patient's sister Griselda: pt doing well on regimen (clozapine, invega sustenna, Haldol Dec +prn) until this past august when she got dx with MS and was hospitalized during which time Invega held and that and other psych meds accidentally not restarted (or delayed...). AH returned and since then, patients sister has been trying to get proper med regimen restarted (at one pt there was problem with clozapine rems). Reviewed list of meds and will change accordingly (increasing mag-oxide to 500mg which is her outpt dose and helped reduce need for clozapine) 2.Digital Photographic Printer [facility] who reports that pt was NOT given Haldol Dec or any other long acting med while there. She did increase her Clozapine to 175mg at 2pm and 275mg at 5pm. 12/22 remains with troubling AH, negative symptoms; continue treatment plan 12/26 pt reports that AH remain the same, no less intensity. However, but is much brighter, smiling at times, says she feels ok and has been out of her room attending groups...She agrees that this behavior may signify improvement at least in her mood, if not her ability to ignore voices. -continue current tx regimen -will consider increasing clozapine 6/ more thought blocking today; AH remain quite debilitating and patient did not attend any groups today, unable to concentrate on very much due to internal preoccupation. Agrees to go up on Clozaril for now -patient reviewed her allergy list and says she has not allergic to trazodone nor she allergic to alpha lipoic acid, [employer] 3 thyroid; also that pork allergy does not cross over to medications. -patient is a candidate for ECT if medication management does not resolve issue as she has refractory psychotic illness and negative symptoms 12/28 1st time patient said voices are little better, talking a little less; continue current treatment plan 12/29 mild improvements, patient showered, AH remains a little less talkative overall but still quite problematic, evidenced by her continued isolation, significant psychomotor retardation, speech latency; discussed speech latency and patient said she is just very distracted by the voices. Discussed medications and she agreed to go up on Clozaril. 12/30 Patient feeling extra tired this morning which she agrees is likely from last night's increased Clozaril. Not much has changed, voices remain quite problematic though less over the past couple days. She agrees to continue at this current new dose and see how things go. Will get labs 01/03 voices got a little worse this afternoon, telling her to keep the door open, which is reminiscent of AH prior to admission that proved controlling and hard for her to dismiss. Discussed case with her sister Griselda who is also healthcare proxy and present on the unit, as well as patient; discussed risks/side effects of medication regimen and all agreed to go up on Clozaril for now -though she has improved some, she is far from baseline, remains impaired and vulnerable to quickly decompensated further and taking direction from AH; possibly because [place] eyes are coming due 01/04 AH has intensified somewhat. Patient is coming due for long-acting injectables which may be contributing to recently worsening AH. Patient due for Haldol Decanoate 100 mg which she received today 01/04 Tomorrow patient due for Invega Sustenna 234 mg 01/04 AH has intensified somewhat. Patient is coming due for long-acting injectables which may be contributing to recently worsening AH. Patient due for Haldol Decanoate 100 mg which she received today 01/04 Tomorrow patient due for Invega Sustenna 234 mg 01/05 Voices a little less; received Invega sustenna 234mg 01/06 well dressed again; in groups more and a little more outward EKG obtained and Qtc wnl 01/07 presents better (dressed) and says AH a little better, however they are more directive and she thinks they are real, though was open to reality testing PLAN: CV Q 15 minute checks Clonazepam 1mg qhs . Clozaril 125 mg 14:00 Continue Clozaril 325 mg q.h.s.; increased on 01/03 (used to be on 250mg at home; at [facility] increased 275) Received Haldol Decanoate 100 mg on 01/04 (last received 12/21) given every q.2 weeks Magnesium oxide 500 mg Q 17:00; for treatment for psychotic symptoms Haldol 5 mg b.i.d. p.r.n. Continue Haldol 10 mg b.i.d. for now given patient is behind on Haldol and suffering from AH; plan will be to taper and eventually DC ReceivedInvega Sustenna 234 mg on 01/05 Q30 days- last dose administered 12/06/23 Thyroid 60 mg daily Omeprazole [address] 240mg BID for MS involve guardian in treatment discharge planning with team Patient educated on: diagnosis and medication risk/benefits Informed Consent: understands, does not understand and further education needed Reason for continued inpatient stay Substantial Risk for: inability to function Time Spent With Patient Time: Total time managing care of this patient today ____ minutes.
[2024-01-08] MEDS: cloZAPine 100 MG, cloZAPine 25 MG 125 MG PO (14:10)
[2024-01-08] MEDS: clonazePAM 1 MG TABLET PO (17:13)
[2024-01-08 20:00] VITALS: BP 106/58; PULSE 104; RESP 16; TEMP 36.9; O2SAT 96
[2024-01-08] MEDS: Magnesium Oxide 400 MG TABLET 500 MG PO (21:30)
[2024-01-09] MEDS: Thyroid,Pork 30 MG TABLET 60 MG PO (06:13)
[2024-01-09] MEDS: Omeprazole 20 MG CAPSULE.DR PO (06:13)
[2024-01-09 08:00] VITALS: BP 122/75; PULSE 78; RESP 16; TEMP 36.3; O2SAT 98
[2024-01-09] MEDS: Haloperidol Lactate Oral Conc 10 MG/5 ML ORAL.CONC PO ×2 (08:48→20:40)
[2024-01-09] MEDS: Propranolol HCL 10 MG TABLET PO ×2 (08:48→20:36)
[2024-01-09] MEDS: Multivitamin TABLET 1 TAB PO (08:49)
[2024-01-09] MEDS: Benztropine Mesylate 1 MG TABLET PO ×2 (08:49→20:39)
[2024-01-09] MEDS: Loratadine 10 MG TABLET PO (08:49)
[2024-01-09] MEDS: Docusate Sodium 100 MG CAPSULE PO ×2 (08:49→20:38)
[2024-01-09] MEDS: Folic Acid 1 MG TABLET PO (08:49)
--- NOTE | 2024-01-09 13:09 | HO.PSYCHPN ---
Subjective Subjective Date of Service: 01/09/24 Reason For Visit: SCHIZOPHRENIA, SI Interim History: met with patient; discussed with team same presentation; says she's not sure about voices today as she's just waking up and they don't bother her during sleep. Again did reality testing and she is ambivalent at best, saying it's your opinion that AH is due to mental illness Mental Status Exam Mental Status Exam Narrative: Pt is alert and oriented; behavior is cooperative, friendly, isolative, quiet; patient is not in distress; dressed in casual attire and well groomed today; mood is described as ok and affect congruent, a little more expressive, still blunted, but less than on admission; eye contact appropriate more of a blank stare; Speech with thought blocking, latency; still slowed and soft; still significant psychomotor retardation present; thought process is goal directed and seems organized; Thought content is on tx for AH; denies delusional thinking and none expressed; no SI/no HI. +AH Patients insight and judgment though has improved some, remains impaired and vulnerable to taking direction from AH Diagnostics Vital Signs (24Hr): Vital Signs - 24 hr 01/08/24 20:00 01/09/24 08:00 Temperature 98.4 F 97.3 F Pulse Rate 104 H 78 Respiratory Rate 16 16 Blood Pressure 106/58 L 122/75 Pulse Oximetry 96 98 Oxygen Delivery Method Room Air Room Air BMI result Body Mass Index 31.4 Labs 01/06/24 12:45 Medications Medications Current Medications Acetaminophen (Acetaminophen 325 Mg Tablet) 650 mg PO Q6H PRN PRN Reason: Headache/Pain Mild Scale (1-3) Last Admin: 12/22/23 21:25 Dose: 650 mg Al Hydroxide/Mg Hydroxide (Magnesium Hydrox/Alum Hydrox 30 Ml Oral.Susp) 30 ml PO Q6H PRN PRN Reason: Heartburn/Nausea Last Admin: 01/08/24 17:17 Dose: 30 ml Albuterol Sulfate (Albuterol Sulfate 90 Mcg 8 Gm Inhaler) 2 puff INHALE RQ4H PRN PRN Reason: Shortness of Breath Last Admin: 01/02/24 21:42 Dose: 2 puff Benztropine Mesylate (Benztropine Mesylate 1 Mg Tablet) 1 mg PO BID LEW Last Admin: 01/09/24 08:49 Dose: 1 mg Clonazepam (Clonazepam 0.5 Mg Tablet) 0.5 mg PO BID PRN PRN Reason: Anxiety Clonazepam (Clonazepam 1 Mg Tablet) 1 mg PO BEDTIME [facility] Clozapine 100 mg/ Clozapine 25 (mg) 125 mg PO 1400 [facility] Last Admin: 01/08/24 14:10 Dose: 125 mg Clozapine 300 mg/ Clozapine 50 (mg) 350 mg PO BEDTIME [facility] Last Admin: 01/08/24 21:30 Dose: 350 mg Docusate Sodium (Docusate Sodium 100 Mg Capsule) 100 mg PO BID [facility] Last Admin: 01/09/24 08:49 Dose: 100 mg Fluticasone Propionate (Fluticasone Propionate Nasal 16 Gm [place]) 1 spray NOSTRIL-B DAILY PRN PRN Reason: nasal congestion Folic Acid (Folic Acid 1 Mg Tablet) 1 mg PO DAILY [facility] Last Admin: 01/09/24 08:49 Dose: 1 mg Haloperidol Decanoate (Haloperidol Decanoate 50 Mg/Ml Vial) 100 mg IM Q14D [facility] Last Admin: 01/05/24 13:48 Dose: 100 mg Haloperidol Lactate (Haloperidol Lactate Oral Conc 10 Mg/5 Ml Oral.Conc) 5 mg PO BID PRN PRN Reason: agitation Last Admin: 12/30/23 22:13 Dose: 5 mg Haloperidol Lactate (Haloperidol Lactate Oral Conc 10 Mg/5 Ml Oral.Conc) 10 mg PO BID [facility] Last Admin: 01/09/24 08:48 Dose: 10 mg Hydroxyzine HCl (Hydroxyzine Hcl 25 Mg Tablet) 25 mg PO Q6H PRN PRN Reason: Anxiety Last Admin: 01/08/24 00:01 Dose: 25 mg Loratadine (Loratadine 10 Mg Tablet) 10 mg PO DAILY [facility] Last Admin: 01/09/24 08:49 Dose: 10 mg Magnesium Hydroxide (Milk Of Magnesia 30 Ml Oral.Susp) 30 ml PO DAILY PRN PRN Reason: Constipation Magnesium Oxide (Magnesium Oxide 400 Mg Tablet) 500 mg PO BEDTIME [facility] Last Admin: 01/08/24 21:30 Dose: 500 mg Multivitamins/Vitamin C (Multivitamin Tablet) 1 tab PO DAILY [facility] Last Admin: 01/09/24 08:49 Dose: 1 tab Patient Own ( (Tecfidera Dr 240 Mg)) 240 mg PO BID [facility] Last Admin: 01/09/24 08:48 Dose: 240 mg Omeprazole (Omeprazole 20 Mg Capsule.Dr) 20 mg PO DAILY@0630 [facility] Last Admin: 01/09/24 06:13 Dose: 20 mg Paliperidone Palmitate (Paliperidone Palmitate 234 Mg/1.5 Ml Syringe) 234 mg IM Q30D [facility] Last Admin: 01/06/24 13:54 Dose: 234 mg Polyethylene Glycol (Polyethylene Glycol 3350 17 Gm Powd.Pack) 17 gm PO DAILY PRN PRN Reason: ongoing Constipation Propranolol HCl (Propranolol Hcl 10 Mg Tablet) 10 mg PO BID [facility]; Protocol Last Admin: 01/09/24 08:48 Dose: 10 mg Thyroid (Thyroid,Pork 30 Mg Tablet) 60 mg PO DAILY@0600 [facility] Last Admin: 01/09/24 06:13 Dose: 60 mg Vitamin A/Vitamin D (A And D Ointment 56.7 Gm Tube) 1 appl TOPICAL BID [facility]; Protocol Last Admin: 01/09/24 09:21 Dose: Not Given Allergies Allergies Allergy/AdvReac Type Severity Reaction Status Date / Time Pork/Porcine Containing Allergy Unknown RASH Verified 12/28/23 14:54 Products [PORK/PORCINE CONTAINING PRODUCTS] ALPHA LIPOIC ACID Allergy Unknown Uncoded 10/17/23 02:24 GRAIN HANDLER-3 THYROID TOXICITY Allergy Unknown Uncoded 10/17/23 02:24 Assessment & Plan Assessment & Plan (1) Schizoaffective disorder: Qualifiers: Schizoaffective disorder type: depressive Qualified Code(s): F25.1 - Schizoaffective disorder, depressive type Status: Acute Code(s): F25.9 - Schizoaffective disorder, unspecified (2) PTSD (post-traumatic stress disorder): Status: Acute Code(s): F43.10 - Post-traumatic stress disorder, unspecified (3) Multiple sclerosis: Status: Acute Code(s): G35 - Multiple sclerosis (4) Mild persistent asthma: Status: Acute Code(s): J45.30 - Mild persistent asthma, uncomplicated Plan 38-year-old female, history of schizoaffective disorder, direct admission from [facility], where patient had presented with worsening auditory hallucinations and SI. Patient is resident at [facility] for around 10 years. Patient was recently discharged from [facility] where she was admitted on 12/07. She has had several recent admissions to [facility] she was admitted to [facility] inpatient on 10/17/2023 and then again on 11/07/2023. Pt has a [facility] and [facility] order in place, with some information available in the chart, but details around actual medications appears to be missing. Patient states that she received her Haldol Decanoate injection 6 days ago while in [facility]. patient reports today hearing voices telling her to go right to go left. Pt stares blankly at times; appears to be internally preoccupied. She is difficult to engage in interview; she appears anxious. denies SI or HI This engineering writer spoke to Griselda DONYA, patient's guardian: Her concerns are to try to help Anjali get back to baseline she had 2 years stability while at the senior living. She reports that there have been problems with medication, getting the correct medication on time due to a number of factors difficulty with the rims certification, difficulty with the [facility] not having the correct equipment when her injection was done was due, and after different hospitalizations medication list at discharge was not complete and the residential home was unable to correct her medication list. Griselda wonders if her sister could be placed in a long-term care nursing facility for more consistent care. Hospital course: 12/19/23 continue tx plan, hold haldol deconoate until can verify last given dose from [facility] or [facility], encourage PO intake 12/20/23 cont tx 12/20 pt reports continued incessant AH, however they are only saying things like go straight...go left...go right and no longer saying mean, provoking things. Pt asked for higher Haldol dose saying she was supposed to have it available but it was only started yesterday. She says that until about a month ago, she was doing quite well, but then her medications got changed/missed and since then she's decompensated with AH. She's not sure why her medications were changed. To her recollection she recieved Haldol Dec when she was at [facility] about a week ago. -Pt gave permission to call sister/HCP and gave Griselda's phone number. 12/21 Patient continues to report auditory hallucinations however they are still just giving her directions to follow., go left, go right.. Which she says is an improvement and they are no longer saying nasty things. Patient remains convinced that she received Haldol Decanoate at [facility]; however she accepts the [facility] providers report to this engineering writer that she did not receive it and agrees to get a now. Collateral: 1.[employer] discussed case with patient's sister Griselda: pt doing well on regimen (clozapine, invega sustenna, Haldol Dec +prn) until this past august when she got dx with MS and was hospitalized during which time Invega held and that and other psych meds accidentally not restarted (or delayed...). AH returned and since then, patients sister has been trying to get proper med regimen restarted (at one pt there was problem with clozapine rems). Reviewed list of meds and will change accordingly (increasing mag-oxide to 500mg which is her outpt dose and helped reduce need for clozapine) 2.[employer] [facility] that [facility] was NOT given Haldol Dec or any other long acting med while there. She did increase her Clozapine to 175mg at 2pm and 275mg at 5pm. 12/22 remains with troubling AH, negative symptoms; continue treatment plan 12/26 pt reports that AH remain the same, no less intensity. However, but is much brighter, smiling at times, says she feels ok and has been out of her room attending groups...She agrees that this behavior may signify improvement at least in her mood, if not her ability to ignore voices. -continue current tx regimen -will consider increasing clozapine 12/27 more thought blocking today; AH remain quite debilitating and patient did not attend any groups today, unable to concentrate on very much due to internal preoccupation. Agrees to go up on Clozaril for now -patient reviewed her allergy list and says she has not allergic to trazodone nor she allergic to alpha lipoic acid, GRAIN HANDLER 3 thyroid; also that pork allergy does not cross over to medications. -patient is a candidate for ECT if medication management does not resolve issue as she has refractory psychotic illness and negative symptoms 12/28 1st time patient said voices are little better, talking a little less; continue current treatment plan 12/29 mild improvements, patient showered, AH remains a little less talkative overall but still quite problematic, evidenced by her continued isolation, significant psychomotor retardation, speech latency; discussed speech latency and patient said she is just very distracted by the voices. Discussed medications and she agreed to go up on Clozaril. 12/30 Patient feeling extra tired this morning which she agrees is likely from last night's increased Clozaril. Not much has changed, voices remain quite problematic though less over the past couple days. She agrees to continue at this current new dose and see how things go. Will get labs 01/03 voices got a little worse this afternoon, telling her to keep the door open, which is reminiscent of AH prior to admission that proved controlling and hard for her to dismiss. Discussed case with her sister Griselda who is also healthcare proxy and present on the unit, as well as patient; discussed risks/side effects of medication regimen and all agreed to go up on Clozaril for now -though she has improved some, she is far from baseline, remains impaired and vulnerable to quickly decompensated further and taking direction from AH; possibly because LA eyes are coming due 01/04 AH has intensified somewhat. Patient is coming due for long-acting injectables which may be contributing to recently worsening AH. Patient due for Haldol Decanoate 100 mg which she received today 01/04 Tomorrow patient due for Invega Sustenna 234 mg 01/04 AH has intensified somewhat. Patient is coming due for long-acting injectables which may be contributing to recently worsening AH. Patient due for Haldol Decanoate 100 mg which she received today 01/04 Tomorrow patient due for Invega Sustenna 234 mg 01/05 Voices a little less; received Invega sustenna 234mg 01/06 well dressed again; in groups more and a little more outward EKG obtained and Qtc wnl 01/07 presents better (dressed) and says AH a little better, however they are more directive and she thinks they are real, though was open to reality testing 01/08 same presentation; continue tx plan PLAN: CV Q 15 minute checks Clonazepam 1mg qhs . Clozaril 125 mg 14:00 Continue Clozaril 325 mg q.h.s.; increased on 01/03 (used to be on 250mg at home; at [facility] increased 275) Received Haldol Decanoate 100 mg on 01/04 (last received 12/21) given every q.2 weeks Magnesium oxide 500 mg Q 17:00; for treatment for psychotic symptoms Haldol 5 mg b.i.d. p.r.n. Continue Haldol 10 mg b.i.d. for now given patient is behind on Haldol and suffering from AH; plan will be to taper and eventually DC ReceivedInvega Sustenna 234 mg on 01/05 Q30 days- last dose administered 12/06/23 Thyroid 60 mg daily Omeprazole [address] 240mg BID for MS involve guardian in treatment discharge planning with team Patient educated on: diagnosis, medication risk/benefits and therapeutic strategies Informed Consent: understands, does not understand and further education needed Reason for continued inpatient stay Substantial Risk for: inability to function and rapid decompensation Time Spent With Patient Time: Total time managing care of this patient today ____ minutes.
[2024-01-09] MEDS: cloZAPine 100 MG, cloZAPine 25 MG 125 MG PO (14:54)
[2024-01-09] MEDS: Magnesium Hydrox/Alum Hydrox 30 ML ORAL.SUSP PO (15:09)
[2024-01-09] MEDS: clonazePAM 1 MG TABLET PO ×2 (18:03→20:38)
[2024-01-09 20:00] VITALS: BP 122/72; PULSE 117; TEMP 36.6; O2SAT 96
[2024-01-09] MEDS: Magnesium Oxide 400 MG TABLET 500 MG PO (20:39)
[2024-01-10] MEDS: Thyroid,Pork 30 MG TABLET 60 MG PO (06:48)
[2024-01-10] MEDS: Omeprazole 20 MG CAPSULE.DR PO (06:48)
[2024-01-10 08:52] VITALS: BP 103/62; PULSE 83; RESP 16; TEMP 36.4; O2SAT 98
[2024-01-10 09:35] VITALS: BP 103/62; PULSE 83
[2024-01-10] MEDS: Propranolol HCL 10 MG TABLET PO ×2 (09:35→23:18)
[2024-01-10] MEDS: Benztropine Mesylate 1 MG TABLET PO ×2 (09:35→22:05)
[2024-01-10] MEDS: Multivitamin TABLET 1 TAB PO (09:35)
[2024-01-10] MEDS: Folic Acid 1 MG TABLET PO (09:35)
[2024-01-10] MEDS: Docusate Sodium 100 MG CAPSULE PO ×2 (09:35→22:04)
[2024-01-10] MEDS: Loratadine 10 MG TABLET PO (09:35)
[2024-01-10] MEDS: Haloperidol Lactate Oral Conc 10 MG/5 ML ORAL.CONC PO ×2 (09:35→23:18)
--- NOTE | 2024-01-10 09:54 | P.PNPSI_ITS ---
Subjective Subjective Date of Service: 01/10/24 Reason For Visit: SCHIZOPHRENIA, SI Interim History: met with patient; discussed with team Patient reports that the voices did seem to be lower and she felt overall more calm; they remain but she said it was a nice experience to have the not so intrusive. Patient was not sure how it would be today as she reports she is just waking up. Mental Status Exam Mental Status Exam Narrative: Pt is alert and oriented; behavior is cooperative, friendly, isolative, quiet; patient is not in distress; dressed in casual attire and well groomed today; mood is described as ok and affect congruent, a little more expressive, still blunted, but less than on admission; eye contact appropriate more of a blank stare; Speech with thought blocking, latency; still slowed and soft; still significant psychomotor retardation present; thought process is goal directed and seems organized; Thought content is on tx for AH; denies delusional thinking and none expressed; no SI/no HI. +AH Patients insight and judgment though has improved some, remains impaired and vulnerable to taking direction from Diagnostics Vital Signs (24Hr): Vital Signs - 24 hr 01/09/24 20:00 01/10/24 08:52 01/10/24 09:35 Temperature 97.8 F 97.6 F Pulse Rate 117 H 83 83 Respiratory Rate 16 Blood Pressure 122/72 103/62 103/62 Pulse Oximetry 96 98 Oxygen Delivery Method Room Air Room Air BMI result Body Mass Index 31.4 Labs 01/06/24 12:45 Medications Medications Current Medications Acetaminophen (Acetaminophen 325 Mg Tablet) 650 mg PO Q6H PRN PRN Reason: Headache/Pain Mild Scale (1-3) Last Admin: 12/22/23 21:25 Dose: 650 mg Al Hydroxide/Mg Hydroxide (Magnesium Hydrox/Alum Hydrox 30 Ml Oral.Susp) 30 ml PO Q6H PRN PRN Reason: Heartburn/Nausea Last Admin: 01/09/24 15:09 Dose: 30 ml Albuterol Sulfate (Albuterol Sulfate 90 Mcg 8 Gm Inhaler) 2 puff INHALE RQ4H PRN PRN Reason: Shortness of Breath Last Admin: 01/02/24 21:42 Dose: 2 puff Benztropine Mesylate (Benztropine Mesylate 1 Mg Tablet) 1 mg PO BID LEW Last Admin: 01/10/24 09:35 Dose: 1 mg Clonazepam (Clonazepam 0.5 Mg Tablet) 0.5 mg PO BID PRN PRN Reason: Anxiety Clonazepam (Clonazepam 1 Mg Tablet) 1 mg PO BEDTIME [facility] Last Admin: 01/09/24 20:38 Dose: 1 mg Clonazepam (Clonazepam 1 Mg Tablet) 1 mg PO DAILY@1700 [facility] Last Admin: 01/09/24 18:03 Dose: 1 mg Clozapine 100 mg/ Clozapine 25 (mg) 125 mg PO 1400 [facility] Last Admin: 01/09/24 14:54 Dose: 125 mg Clozapine 300 mg/ Clozapine 50 (mg) 350 mg PO BEDTIME [facility] Last Admin: 01/09/24 20:34 Dose: 350 mg Docusate Sodium (Docusate Sodium 100 Mg Capsule) 100 mg PO BID [facility] Last Admin: 01/10/24 09:35 Dose: 100 mg Fluticasone Propionate (Fluticasone Propionate Nasal 16 Gm [place]) 1 spray NOSTRIL-B DAILY PRN PRN Reason: nasal congestion Folic Acid (Folic Acid 1 Mg Tablet) 1 mg PO DAILY [facility] Last Admin: 01/10/24 09:35 Dose: 1 mg Haloperidol Decanoate (Haloperidol Decanoate 50 Mg/Ml Vial) 100 mg IM Q14D [facility] Last Admin: 01/05/24 13:48 Dose: 100 mg Haloperidol Lactate (Haloperidol Lactate Oral Conc 10 Mg/5 Ml Oral.Conc) 5 mg PO BID PRN PRN Reason: agitation Last Admin: 12/30/23 22:13 Dose: 5 mg Haloperidol Lactate (Haloperidol Lactate Oral Conc 10 Mg/5 Ml Oral.Conc) 10 mg PO BID [facility] Last Admin: 01/10/24 09:35 Dose: 10 mg Hydroxyzine HCl (Hydroxyzine Hcl 25 Mg Tablet) 25 mg PO Q6H PRN PRN Reason: Anxiety Last Admin: 01/08/24 00:01 Dose: 25 mg Loratadine (Loratadine 10 Mg Tablet) 10 mg PO DAILY [facility] Last Admin: 01/10/24 09:35 Dose: 10 mg Magnesium Hydroxide (Milk Of Magnesia 30 Ml Oral.Susp) 30 ml PO DAILY PRN PRN Reason: Constipation Magnesium Oxide (Magnesium Oxide 400 Mg Tablet) 500 mg PO BEDTIME [facility] Last Admin: 01/09/24 20:39 Dose: 500 mg Multivitamins/Vitamin C (Multivitamin Tablet) 1 tab PO DAILY [facility] Last Admin: 01/10/24 09:35 Dose: 1 tab Patient Own ( (Tecfidera Dr 240 Mg)) 240 mg PO BID [facility] Last Admin: 01/09/24 20:51 Dose: 240 mg Omeprazole (Omeprazole 20 Mg Capsule.Dr) 20 mg PO DAILY@0630 [facility] Last Admin: 01/10/24 06:48 Dose: 20 mg Paliperidone Palmitate (Paliperidone Palmitate 234 Mg/1.5 Ml Syringe) 234 mg IM Q30D [facility] Last Admin: 01/06/24 13:54 Dose: 234 mg Polyethylene Glycol (Polyethylene Glycol 3350 17 Gm Powd.Pack) 17 gm PO DAILY PRN PRN Reason: ongoing Constipation Propranolol HCl (Propranolol Hcl 10 Mg Tablet) 10 mg PO BID [facility]; Protocol Last Admin: 01/10/24 09:35 Dose: 10 mg Thyroid (Thyroid,Pork 30 Mg Tablet) 60 mg PO DAILY@0600 [facility] Last Admin: 01/10/24 06:48 Dose: 60 mg Vitamin A/Vitamin D (A And D Ointment 56.7 Gm Tube) 1 appl TOPICAL BID [facility]; Protocol Last Admin: 01/09/24 20:58 Dose: Not Given Allergies Allergies Allergy/AdvReac Type Severity Reaction Status Date / Time Pork/Porcine Containing Allergy Unknown RASH Verified 12/28/23 14:54 Products [PORK/PORCINE CONTAINING PRODUCTS] ALPHA LIPOIC ACID Allergy Unknown Uncoded 10/17/23 02:24 CONSTRUCTION GRIP-3 THYROID TOXICITY Allergy Unknown Uncoded 10/17/23 02:24 Assessment & Plan Assessment & Plan (1) Schizoaffective disorder: Qualifiers: Schizoaffective disorder type: depressive Qualified Code(s): F25.1 - Schizoaffective disorder, depressive type Status: Acute Code(s): F25.9 - Schizoaffective disorder, unspecified (2) PTSD (post-traumatic stress disorder): Status: Acute Code(s): F43.10 - Post-traumatic stress disorder, unspecified (3) Multiple sclerosis: Status: Acute Code(s): G35 - Multiple sclerosis (4) Mild persistent asthma: Status: Acute Code(s): J45.30 - Mild persistent asthma, uncomplicated Plan 38-year-old female, history of schizoaffective disorder, direct admission from [facility], where patient had presented with worsening auditory hallucinations and SI. Patient is resident at [facility] for around 10 years. Patient was recently discharged from [facility] where she was admitted on 12/07. She has had several recent admissions to [facility] she was admitted to [facility] on 10/17/2023 and then again on 11/07/2023. Pt has a [facility] and [facility] order in place, with some information available in the chart, but details around actual medications appears to be missing. Patient states that she received her Haldol Decanoate injection 6 days ago while in [facility]. patient reports today hearing voices telling her to go right to go left. Pt stares blankly at times; appears to be internally preoccupied. She is difficult to engage in interview; she appears anxious. denies SI or HI This clinical writer spoke to Griselda NAQVI, patient's guardian: Her concerns are to try to help Anjali get back to baseline she had 2 years stability while at the [facility]. She reports that there have been problems with medication, getting the correct medication on time due to a number of factors difficulty with the rims certification, difficulty with the [facility] not having the correct equipment when her injection was done was due, and after different hospitalizations medication list at discharge was not complete and the residential home was unable to correct her medication list. Griselda wonders if her sister could be placed in a long-term care nursing facility for more consistent care. Hospital course: 12/19/23 continue tx plan, hold haldol deconoate until can verify last given dose from [facility] or [facility], encourage PO intake 12/20/23 cont tx 12/20 pt reports continued incessant AH, however they are only saying things like go straight...go left...go right and no longer saying mean, provoking things. Pt asked for higher Haldol dose saying she was supposed to have it available but it was only started yesterday. She says that until about a month ago, she was doing quite well, but then her medications got changed/missed and since then she's decompensated with AH. She's not sure why her medications were changed. To her recollection she recieved Haldol Dec when she was at [facility] about a week ago. -Pt gave permission to call sister/HCP and gave Griselda's phone number. 12/21 Patient continues to report auditory hallucinations however they are still just giving her directions to follow., go left, go right.. Which she says is an improvement and they are no longer saying nasty things. Patient remains convinced that she received Haldol Decanoate at [facility]; however she accepts the [facility] providers report to this clinical writer that she did not receive it and agrees to get a now. Collateral: 1.Patient Scheduling Coordinator discussed case with patient's sister Griselda: pt doing well on regimen (clozapine, invega sustenna, Haldol Dec +prn) until this past august when she got dx with MS and was hospitalized during which time Invega held and that and other psych meds accidentally not restarted (or delayed...). AH returned and since then, patients sister has been trying to get proper med regimen restarted (at one pt there was problem with clozapine rems). Reviewed list of meds and will change accordingly (increasing mag-oxide to 500mg which is her outpt dose and helped reduce need for clozapine) 2.Patient Scheduling Coordinator [facility] reports that pt was NOT given Haldol Dec or any other long acting med while there. She did increase her Clozapine to 175mg at 2pm and 275mg at 5pm. 12/22 remains with troubling AH, negative symptoms; continue treatment plan 12/26 pt reports that AH remain the same, no less intensity. However, but is much brighter, smiling at times, says she feels ok and has been out of her room attending groups...She agrees that this behavior may signify improvement at least in her mood, if not her ability to ignore voices. -continue current tx regimen -will consider increasing clozapine 6/ more thought blocking today; AH remain quite debilitating and patient did not attend any groups today, unable to concentrate on very much due to internal preoccupation. Agrees to go up on Clozaril for now -patient reviewed her allergy list and says she has not allergic to trazodone nor she allergic to alpha lipoic acid, CONSTRUCTION GRIP 3 thyroid; also that pork allergy does not cross over to medications. -patient is a candidate for ECT if medication management does not resolve issue as she has refractory psychotic illness and negative symptoms 12/28 time patient said voices are little better, talking a little less; continue current treatment plan 12/29 mild improvements, patient showered, AH remains a little less talkative overall but still quite problematic, evidenced by her continued isolation, significant psychomotor retardation, speech latency; discussed speech latency and patient said she is just very distracted by the voices. Discussed medications and she agreed to go up on Clozaril. 12/30 Patient feeling extra tired this morning which she agrees is likely from last night's increased Clozaril. Not much has changed, voices remain quite problematic though less over the past couple days. She agrees to continue at this current new dose and see how things go. Will get labs 01/03 voices got a little worse this afternoon, telling her to keep the door open, which is reminiscent of AH prior to admission that proved controlling and hard for her to dismiss. Discussed case with her sister Griselda who is also healthcare proxy and present on the unit, as well as patient; discussed risks/side effects of medication regimen and all agreed to go up on Clozaril for now -though she has improved some, she is far from baseline, remains impaired and vulnerable to quickly decompensated further and taking direction from ; possibly because [place] eyes are coming due 01/04 AH has intensified somewhat. Patient is coming due for long-acting injectables which may be contributing to recently worsening AH. Patient due for Haldol Decanoate 100 mg which she received today 01/04 Tomorrow patient due for Invega Sustenna 234 mg 01/04 AH has intensified somewhat. Patient is coming due for long-acting injectables which may be contributing to recently worsening AH. Patient due for Haldol Decanoate 100 mg which she received today 01/04 Tomorrow patient due for Invega Sustenna 234 mg 01/05 Voices a little less; received Invega sustenna 234mg 01/06 well dressed again; in groups more and a little more outward EKG obtained and Qtc wnl 01/07 presents better (dressed) and says AH a little better, however they are more directive and she thinks they are real, though was open to reality testing 01/08 same presentation; continue tx plan 01/09 patient says voices have become a little quieter and she is overall feeling more calm. She remains significantly internally preoccupied with speech latency. Will continue to monitor. PLAN: CV Q 15 minute checks Clonazepam 1mg qhs . Clozaril 125 mg 14:00 Continue Clozaril 325 mg q.h.s.; increased on 01/03 (used to be on 250mg at home; at [facility] increased 275) Received Haldol Decanoate 100 mg on 01/04 (last received 12/21) given every q.2 weeks Magnesium oxide 500 mg Q 17:00; for treatment for psychotic symptoms Haldol 5 mg b.i.d. p.r.n. Continue Haldol 10 mg b.i.d. for now given patient is behind on Haldol and suffering from AH; plan will be to taper and eventually DC ReceivedInvega Sustenna 234 mg on 01/05 Q30 days- last dose administered 12/06/23 Thyroid 60 mg daily Omeprazole [address] 240mg BID for MS involve guardian in treatment discharge planning with team Patient educated on: diagnosis and medication risk/benefits Informed Consent: understands, does not understand and further education needed Reason for continued inpatient stay Substantial Risk for: inability to function and rapid decompensation Time Spent With Patient Time: Total time managing care of this patient today ____ minutes.
[2024-01-10] MEDS: cloZAPine 100 MG, cloZAPine 25 MG 125 MG PO (16:22)
[2024-01-10] MEDS: clonazePAM 1 MG TABLET PO ×2 (16:23→22:05)
[2024-01-10 20:00] VITALS: BP 105/59; PULSE 111; TEMP 37; O2SAT 94
[2024-01-10] MEDS: Magnesium Oxide 400 MG TABLET 500 MG PO (22:06)
[2024-01-10] MEDS: Albuterol Sulfate 90 MCG 8 GM INHALER 2 PUFF INHALE (22:13)
[2024-01-11 08:00] VITALS: BP 112/66; PULSE 93; RESP 16; TEMP 36.3; O2SAT 96
--- NOTE | 2024-01-11 09:56 | P.PNPSI_ITS ---
Subjective Subjective Date of Service: 01/11/24 Reason For Visit: SCHIZOPHRENIA, SI Interim History: met with patient; discussed with team not much change in presentation; today she says AH seems worse again, louder and more intrusive. Of note, regardless, pt remains with significant negative symptoms, blank stare, speech latency, and slowed movement and speech. Mental Status Exam Mental Status Exam Narrative: Pt is alert and oriented; behavior is cooperative, friendly, isolative, quiet; patient is not in distress; dressed in casual attire and well groomed today; mood is described as ok and affect congruent, a little more expressive, still blunted, but less than on admission; eye contact appropriate more of a blank stare; Speech with thought blocking, latency; still slowed and soft; still significant psychomotor retardation present; thought process is goal directed and seems organized; Thought content is on tx for AH; denies delusional thinking and none expressed; no SI/no HI. +AH Patients insight and judgment though remains impaired Diagnostics Vital Signs (24Hr): Vital Signs - 24 hr 01/10/24 20:00 01/11/24 08:00 Temperature 98.6 F 97.3 F Pulse Rate 111 H 93 Respiratory Rate 16 Blood Pressure 105/59 L 112/66 Pulse Oximetry 94 96 Oxygen Delivery Method Room Air Room Air BMI result Body Mass Index 31.4 Labs 01/06/24 12:45 Medications Medications Current Medications Acetaminophen (Acetaminophen 325 Mg Tablet) 650 mg PO Q6H PRN PRN Reason: Headache/Pain Mild Scale (1-3) Last Admin: 12/22/23 21:25 Dose: 650 mg Al Hydroxide/Mg Hydroxide (Magnesium Hydrox/Alum Hydrox 30 Ml Oral.Susp) 30 ml PO Q6H PRN PRN Reason: Heartburn/Nausea Last Admin: 01/09/24 15:09 Dose: 30 ml Albuterol Sulfate (Albuterol Sulfate 90 Mcg 8 Gm Inhaler) 2 puff INHALE RQ4H PRN PRN Reason: Shortness of Breath Last Admin: 01/10/24 22:13 Dose: 2 puff Benztropine Mesylate (Benztropine Mesylate 1 Mg Tablet) 1 mg PO BID LEW Last Admin: 01/10/24 22:05 Dose: 1 mg Clonazepam (Clonazepam 0.5 Mg Tablet) 0.5 mg PO BID PRN PRN Reason: Anxiety Clonazepam (Clonazepam 1 Mg Tablet) 1 mg PO BEDTIME [facility] Last Admin: 01/10/24 22:05 Dose: 1 mg Clonazepam (Clonazepam 1 Mg Tablet) 1 mg PO DAILY@1700 [facility] Last Admin: 01/10/24 16:23 Dose: 1 mg Clozapine 100 mg/ Clozapine 25 (mg) 125 mg PO 1400 [facility] Last Admin: 01/10/24 16:22 Dose: 125 mg Clozapine 300 mg/ Clozapine 50 (mg) 350 mg PO BEDTIME [facility] Last Admin: 01/10/24 22:05 Dose: 350 mg Docusate Sodium (Docusate Sodium 100 Mg Capsule) 100 mg PO BID [facility] Last Admin: 01/10/24 22:04 Dose: 100 mg Fluticasone Propionate (Fluticasone Propionate Nasal 16 Gm [place]) 1 spray NOSTRIL-B DAILY PRN PRN Reason: nasal congestion Folic Acid (Folic Acid 1 Mg Tablet) 1 mg PO DAILY [facility] Last Admin: 01/10/24 09:35 Dose: 1 mg Haloperidol Decanoate (Haloperidol Decanoate 50 Mg/Ml Vial) 100 mg IM Q14D [facility] Last Admin: 01/05/24 13:48 Dose: 100 mg Haloperidol Lactate (Haloperidol Lactate Oral Conc 10 Mg/5 Ml Oral.Conc) 5 mg PO BID PRN PRN Reason: agitation Last Admin: 12/30/23 22:13 Dose: 5 mg Haloperidol Lactate (Haloperidol Lactate Oral Conc 10 Mg/5 Ml Oral.Conc) 10 mg PO BID [facility] Last Admin: 01/10/24 23:18 Dose: 10 mg Hydroxyzine HCl (Hydroxyzine Hcl 25 Mg Tablet) 25 mg PO Q6H PRN PRN Reason: Anxiety Last Admin: 01/08/24 00:01 Dose: 25 mg Loratadine (Loratadine 10 Mg Tablet) 10 mg PO DAILY [facility] Last Admin: 01/10/24 09:35 Dose: 10 mg Magnesium Hydroxide (Milk Of Magnesia 30 Ml Oral.Susp) 30 ml PO DAILY PRN PRN Reason: Constipation Magnesium Oxide (Magnesium Oxide 400 Mg Tablet) 500 mg PO BEDTIME [facility] Last Admin: 01/10/24 22:06 Dose: 500 mg Multivitamins/Vitamin C (Multivitamin Tablet) 1 tab PO DAILY [facility] Last Admin: 01/10/24 09:35 Dose: 1 tab Patient Own ( (Tecfidera Dr 240 Mg)) 240 mg PO BID [facility] Last Admin: 01/10/24 22:08 Dose: 240 mg Omeprazole (Omeprazole 20 Mg Capsule.Dr) 20 mg PO DAILY@0630 [facility] Last Admin: 01/11/24 06:33 Dose: Not Given Paliperidone Palmitate (Paliperidone Palmitate 234 Mg/1.5 Ml Syringe) 234 mg IM Q30D [facility] Last Admin: 01/06/24 13:54 Dose: 234 mg Polyethylene Glycol (Polyethylene Glycol 3350 17 Gm Powd.Pack) 17 gm PO DAILY PRN PRN Reason: ongoing Constipation Propranolol HCl (Propranolol Hcl 10 Mg Tablet) 10 mg PO BID [facility]; Protocol Last Admin: 01/10/24 23:18 Dose: 10 mg Thyroid (Thyroid,Pork 30 Mg Tablet) 60 mg PO DAILY@0600 [facility] Last Admin: 01/11/24 06:33 Dose: Not Given Vitamin A/Vitamin D (A And D Ointment 56.7 Gm Tube) 1 appl TOPICAL BID [facility]; Protocol Last Admin: 01/10/24 22:11 Dose: Not Given Allergies Allergies Allergy/AdvReac Type Severity Reaction Status Date / Time Pork/Porcine Containing Allergy Unknown RASH Verified 12/28/23 14:54 Products [PORK/PORCINE CONTAINING PRODUCTS] ALPHA LIPOIC ACID Allergy Unknown Uncoded 10/17/23 02:24 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 COMMUNITY ASSISTANT MANAGER-3 THYROID TOXICITY Allergy Unknown Uncoded 10/17/23 02:24 Assessment & Plan Assessment & Plan (1) Schizoaffective disorder: Qualifiers: Schizoaffective disorder type: depressive Qualified Code(s): F25.1 - Schizoaffective disorder, depressive type Status: Acute Code(s): F25.9 - Schizoaffective disorder, unspecified (2) PTSD (post-traumatic stress disorder): Status: Acute Code(s): F43.10 - Post-traumatic stress disorder, unspecified (3) Multiple sclerosis: Status: Acute Code(s): G35 - Multiple sclerosis (4) Mild persistent asthma: Status: Acute Code(s): J45.30 - Mild persistent asthma, uncomplicated Plan 38-year-old female, history of schizoaffective disorder, direct admission from [facility], where patient had presented with worsening auditory hallucinations and SI. Patient is resident at [facility] for around 10 years. Patient was recently discharged from [facility] where she was admitted on 12/07. She has had several recent admissions to [facility] she was admitted to [facility] inpatient on 10/17/2023 and then again on 11/07/2023. [facility] order in place, with some information available in the chart, but details around actual medications appears to be missing. Patient states that she received her Haldol Decanoate injection 6 days ago while in [facility]. patient reports today hearing voices telling her to go right to go left. Pt stares blankly at times; appears to be internally preoccupied. She is difficult to engage in interview; she appears anxious. denies SI or HI This typewriter tester spoke to Griselda DONYA, patient's guardian: Her concerns are to try to help Anjali get back to baseline she had 2 [facility] She reports that there have been problems with medication, getting the correct medication on time due to a number of factors difficulty with the rims certification, difficulty with the [facility] not having the correct equipment when her injection was done was due, and after different hospitalizations medication list at discharge was not complete and the residential home was unable to correct her medication list. Griselda wonders if her sister could be placed in a long-term care nursing facility for more consistent care. Hospital course: 12/19/23 continue tx plan, hold haldol deconoate until can verify last given dose from [facility] or [facility], encourage PO intake 12/20/23 cont tx 12/20 pt reports continued incessant AH, however they are only saying things like go straight...go left...go right and no longer saying mean, provoking things. Pt asked for higher Haldol dose saying she was supposed to have it available but it was only started yesterday. She says that until about a month ago, she was doing quite well, but then her medications got changed/missed and since then she's decompensated with AH. She's not sure why her medications were changed. To her recollection she recieved Haldol Dec when she was at [facility] about a week ago. -Pt gave permission to call sister/HCP and gave Griselda's phone number. 12/21 Patient continues to report auditory hallucinations however they are still just giving her directions to follow., go left, go right.. Which she says is an improvement and they are no longer saying nasty things. Patient remains convinced that she received Haldol Decanoate at [facility]; however she accepts the [facility] providers report to this typewriter tester that she did not receive it and agrees to get a now. Collateral: 1.Wafer Substrate Tester discussed case with patient's sister Griselda: pt doing well on regimen (clozapine, invega sustenna, Haldol Dec +prn) until this past august when she got dx with MS and was hospitalized during which time Invega held and that and other psych meds accidentally not restarted (or delayed...). AH returned and since then, patients sister has been trying to get proper med regimen restarted (at one pt there was problem with clozapine rems). Reviewed list of meds and will change accordingly (increasing mag-oxide to 500mg which is her outpt dose and helped reduce need for clozapine) 2.Wafer Substrate Tester discussed [facility] who reports that pt was NOT given Haldol Dec or any other long acting med while there. She did increase her Clozapine to 175mg at 2pm and 275mg at 5pm. 12/22 remains with troubling AH, negative symptoms; continue treatment plan 12/26 pt reports that AH remain the same, no less intensity. However, but is much brighter, smiling at times, says she feels ok and has been out of her room attending groups...She agrees that this behavior may signify improvement at least in her mood, if not her ability to ignore voices. -continue current tx regimen -will consider increasing clozapine 6/4 more thought blocking today; AH remain quite debilitating and patient did not attend any groups today, unable to concentrate on very much due to internal preoccupation. 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 -patient is a candidate for ECT if medication management does not resolve issue as she has refractory psychotic illness and negative symptoms 12/28 1st time patient said voices are little better, talking a little less; continue current treatment plan 12/29 mild improvements, patient showered, AH remains a little less talkative overall but still quite problematic, evidenced by her continued isolation, significant psychomotor retardation, speech latency; discussed speech latency and patient said she is just very distracted by the voices. Discussed medications and she agreed to go up on Clozaril. 12/30 Patient feeling extra tired this morning which she agrees is likely from last night's increased Clozaril. Not much has changed, voices remain quite problematic though less over the past couple days. She agrees to continue at this current new dose and see how things go. Will get labs 01/03 voices got a little worse this afternoon, telling her to keep the door open, which is reminiscent of AH prior to admission that proved controlling and hard for her to dismiss. Discussed case with her sister Griselda who is also healthcare proxy and present on the unit, as well as patient; discussed risks/side effects of medication regimen and all agreed to go up on Clozaril for now -though she has improved some, she is far from baseline, remains impaired and vulnerable to quickly decompensated further and taking direction from AH; possibly because LA eyes are coming due 01/04 AH has intensified somewhat. Patient is coming due for long-acting injectables which may be contributing to recently worsening AH. Patient due for Haldol Decanoate 100 mg which she received today 01/04 Tomorrow patient due for Invega Sustenna 234 mg 01/04 AH has intensified somewhat. Patient is coming due for long-acting injectables which may be contributing to recently worsening AH. Patient due for Haldol Decanoate 100 mg which she received today 01/04 Tomorrow patient due for Invega Sustenna 234 mg 01/05 Voices a little less; received Invega sustenna 234mg 01/06 well dressed again; in groups more and a little more outward EKG obtained and Qtc wnl 01/07 presents better (dressed) and says AH a little better, however they are more directive and she thinks they are real, though was open to reality testing 01/08 same presentation; continue tx plan 01/09 patient says voices have become a little quieter and she is overall feeling more calm. She remains significantly internally preoccupied with speech latency. Will continue to monitor. 01/10 continue tx plan; considering increasing Clozapine further given little improvement since last increase. Could instead increase Haldol however, this is increases risks of EPS PLAN: CV Q 15 minute checks Clonazepam 1mg qhs . Clozaril 125 mg 14:00 Continue Clozaril 325 mg q.h.s.; increased on 01/03 (used to be on 250mg at home; at [facility] increased 275) Received Haldol Decanoate 100 mg on 01/04 (last received 12/21) given every q.2 weeks Magnesium oxide 500 mg Q 17:00; for treatment for psychotic symptoms Haldol 5 mg b.i.d. p.r.n. Continue Haldol 10 mg b.i.d. for now given patient is behind on Haldol and suffering from AH; plan will be to taper and eventually DC ReceivedInvega Sustenna 234 mg on 01/05 Q30 days- last dose administered 12/06/23 Thyroid 60 mg daily Omeprazole [address] 240mg BID for MS involve guardian in treatment discharge planning with team Patient educated on: diagnosis and medication risk/benefits Informed Consent: understands and further education needed Reason for continued inpatient stay Substantial Risk for: inability to function Time Spent With Patient Time: Total time managing care of this patient today ____ minutes.
[2024-01-11] MEDS: Propranolol HCL 10 MG TABLET PO ×2 (10:21→20:51)
[2024-01-11] MEDS: Thyroid,Pork 30 MG TABLET 60 MG PO (10:21)
[2024-01-11] MEDS: Omeprazole 20 MG CAPSULE.DR PO (10:22)
[2024-01-11] MEDS: Benztropine Mesylate 1 MG TABLET PO ×2 (10:22→20:55)
[2024-01-11] MEDS: A and D Ointment 56.7 GM TUBE 1 APPL TOPICAL (10:22)
[2024-01-11] MEDS: Docusate Sodium 100 MG CAPSULE PO ×2 (10:22→20:55)
[2024-01-11] MEDS: Folic Acid 1 MG TABLET PO (10:22)
[2024-01-11] MEDS: Loratadine 10 MG TABLET PO (10:22)
[2024-01-11] MEDS: Multivitamin TABLET 1 TAB PO (10:23)
[2024-01-11] MEDS: Haloperidol Lactate Oral Conc 10 MG/5 ML ORAL.CONC PO ×2 (10:23→20:57)
[2024-01-11] MEDS: cloZAPine 100 MG, cloZAPine 25 MG 125 MG PO (15:06)
[2024-01-11] MEDS: clonazePAM 1 MG TABLET PO ×2 (17:37→20:55)
[2024-01-11 20:00] VITALS: BP 95/60; PULSE 95; RESP 16; TEMP 37.1; O2SAT 97
[2024-01-11 20:51] VITALS: BP 100/65
[2024-01-11] MEDS: Magnesium Oxide 400 MG TABLET 500 MG PO (20:52)
[2024-01-12] MEDS: hydrOXYzine HCL 25 MG TABLET PO (00:03)
[2024-01-12] MEDS: Magnesium Hydrox/Alum Hydrox 30 ML ORAL.SUSP PO (03:33)
[2024-01-12] MEDS: Thyroid,Pork 30 MG TABLET 60 MG PO (06:01)
[2024-01-12] MEDS: Omeprazole 20 MG CAPSULE.DR PO (06:37)
[2024-01-12 08:00] VITALS: BP 148/89; PULSE 117; TEMP 36.4; O2SAT 98
[2024-01-12 08:34] VITALS: BP 140/88
[2024-01-12] MEDS: Multivitamin TABLET 1 TAB PO (08:34)
[2024-01-12] MEDS: Docusate Sodium 100 MG CAPSULE PO ×2 (08:34→21:18)
[2024-01-12] MEDS: Loratadine 10 MG TABLET PO (08:34)
[2024-01-12] MEDS: Folic Acid 1 MG TABLET PO (08:34)
[2024-01-12] MEDS: Haloperidol Lactate Oral Conc 10 MG/5 ML ORAL.CONC PO ×2 (08:34→21:18)
[2024-01-12] MEDS: Propranolol HCL 10 MG TABLET PO ×2 (08:34→21:18)
[2024-01-12] MEDS: Benztropine Mesylate 1 MG TABLET PO ×2 (08:34→21:18)
[2024-01-12 10:28] LABS: Clozapine (Clozaril) 819 mcg/L; Norclozapine 325 mcg/L (25-400)
[2024-01-12] MEDS: cloZAPine 100 MG, cloZAPine 25 MG 125 MG PO (14:37)
--- NOTE | 2024-01-12 15:08 | HO.PSYCHPN ---
Subjective Subjective Date of Service: 01/12/24 Reason For Visit: SCHIZOPHRENIA, SI Interim History: Met with patient; discussed with team Patient up early today, before breakfast, the 1st time since this admission she has not slept until lunch time. Patient does think she is feeling better and although AH remain, she says she has been able to ignore them. She still feels far from her regular self but overall thinks things are headed in the right direction. Patient asked for Clozaril to be increased thinking it is probably necessary. -slight bilateral tremor -of note, brighter affect and more naturally expressive Mental Status Exam Mental Status Exam Narrative: Pt is alert and oriented; behavior is cooperative, friendly, callm, quiet; patient is not in distress; dressed in hospital attire and adequately groomed; mood is described as okay and affect congruent, a little more expressive, still blunted, but less so; eye contact appropriate and a little more naturally expressive with less of a blank stare; Speech with thought blocking continued latency but less so; still slowed and soft; still significant psychomotor retardation present; thought process is goal directed and seems organized; Thought content is on tx for AH; denies delusional thinking and none expressed; no SI/no HI. +AH Patients insight and judgment though remains impaired but improving Diagnostics Vital Signs (24Hr): Vital Signs - 24 hr 01/11/24 20:00 01/11/24 20:51 01/12/24 08:00 Temperature 98.7 F 97.5 F Pulse Rate 95 117 H Respiratory Rate 16 Blood Pressure 95/60 100/65 148/89 H Pulse Oximetry 97 98 Oxygen Delivery Method Room Air Room Air 01/12/24 08:34 Temperature Pulse Rate Respiratory Rate Blood Pressure 140/88 H Pulse Oximetry Oxygen Delivery Method BMI result Body Mass Index 31.4 Labs 01/06/24 12:45 Labs: Laboratory Results - last 48 hr 01/07/24 09:42 Clozapine 819 Norclozapine 325 Medications Medications Current Medications Acetaminophen (Acetaminophen 325 Mg Tablet) 650 mg PO Q6H PRN PRN Reason: Headache/Pain Mild Scale (1-3) Last Admin: 12/22/23 21:25 Dose: 650 mg Al Hydroxide/Mg Hydroxide (Magnesium Hydrox/Alum Hydrox 30 Ml Oral.Susp) 30 ml PO Q6H PRN PRN Reason: Heartburn/Nausea Last Admin: 01/12/24 03:33 Dose: 30 ml Albuterol Sulfate (Albuterol Sulfate 90 Mcg 8 Gm Inhaler) 2 puff INHALE RQ4H PRN PRN Reason: Shortness of Breath Last Admin: 01/10/24 22:13 Dose: 2 puff Benztropine Mesylate (Benztropine Mesylate 1 Mg Tablet) 1 mg PO BID [facility] Last Admin: 01/12/24 08:34 Dose: 1 mg Clonazepam (Clonazepam 0.5 Mg Tablet) 0.5 mg PO BID PRN PRN Reason: Anxiety Clonazepam (Clonazepam 1 Mg Tablet) 1 mg PO BEDTIME [facility] Last Admin: 01/11/24 20:55 Dose: 1 mg Clonazepam (Clonazepam 1 Mg Tablet) 1 mg PO DAILY@1700 [facility] Last Admin: 01/11/24 17:37 Dose: 1 mg Clozapine 100 mg/ Clozapine 25 (mg) 125 mg PO 1400 [facility] Last Admin: 01/12/24 14:37 Dose: 125 mg Clozapine 300 mg/ Clozapine 50 (mg) 350 mg PO BEDTIME [facility] Last Admin: 01/11/24 20:54 Dose: 350 mg Docusate Sodium (Docusate Sodium 100 Mg Capsule) 100 mg PO BID [facility] Last Admin: 01/12/24 08:34 Dose: 100 mg Fluticasone Propionate (Fluticasone Propionate Nasal 16 Gm [place]) 1 spray NOSTRIL-B DAILY PRN PRN Reason: nasal congestion Folic Acid (Folic Acid 1 Mg Tablet) 1 mg PO DAILY [facility] Last Admin: 01/12/24 08:34 Dose: 1 mg Haloperidol Decanoate (Haloperidol Decanoate 50 Mg/Ml Vial) 100 mg IM Q14D [facility] Last Admin: 01/05/24 13:48 Dose: 100 mg Haloperidol Lactate (Haloperidol Lactate Oral Conc 10 Mg/5 Ml Oral.Conc) 5 mg PO BID PRN PRN Reason: agitation Last Admin: 12/30/23 22:13 Dose: 5 mg Haloperidol Lactate (Haloperidol Lactate Oral Conc 10 Mg/5 Ml Oral.Conc) 10 mg PO BID [facility] Last Admin: 01/12/24 08:34 Dose: 10 mg Hydroxyzine HCl (Hydroxyzine Hcl 25 Mg Tablet) 25 mg PO Q6H PRN PRN Reason: Anxiety Last Admin: 01/12/24 00:03 Dose: 25 mg Loratadine (Loratadine 10 Mg Tablet) 10 mg PO DAILY [facility] Last Admin: 01/12/24 08:34 Dose: 10 mg Magnesium Hydroxide (Milk Of Magnesia 30 Ml Oral.Susp) 30 ml PO DAILY PRN PRN Reason: Constipation Magnesium Oxide (Magnesium Oxide 400 Mg Tablet) 500 mg PO BEDTIME [facility] Last Admin: 01/11/24 20:52 Dose: 500 mg Multivitamins/Vitamin C (Multivitamin Tablet) 1 tab PO DAILY [facility] Last Admin: 01/12/24 08:34 Dose: 1 tab Patient Own ( (Tecfidera Dr 240 Mg)) 240 mg PO BID [facility] Last Admin: 01/12/24 11:11 Dose: 240 mg Omeprazole (Omeprazole 20 Mg Capsule.Dr) 20 mg PO DAILY@0630 [facility] Last Admin: 01/12/24 06:37 Dose: 20 mg Paliperidone Palmitate (Paliperidone Palmitate 234 Mg/1.5 Ml Syringe) 234 mg IM Q30D [facility] Last Admin: 01/06/24 13:54 Dose: 234 mg Polyethylene Glycol (Polyethylene Glycol 3350 17 Gm Powd.Pack) 17 gm PO DAILY PRN PRN Reason: ongoing Constipation Propranolol HCl (Propranolol Hcl 10 Mg Tablet) 10 mg PO BID [facility]; Protocol Last Admin: 01/12/24 08:34 Dose: 10 mg Thyroid (Thyroid,Pork 30 Mg Tablet) 60 mg PO DAILY@0600 [facility] Last Admin: 01/12/24 06:01 Dose: 60 mg Vitamin A/Vitamin D (A And D Ointment 56.7 Gm Tube) 1 appl TOPICAL BID [facility]; Protocol Last Admin: 01/12/24 12:51 Dose: Not Given Allergies Allergies Allergy/AdvReac Type Severity Reaction Status Date / Time Pork/Porcine Containing Allergy Unknown RASH Verified 12/28/23 14:54 Products [PORK/PORCINE CONTAINING PRODUCTS] ALPHA LIPOIC ACID Allergy Unknown Uncoded 10/17/23 02:24 FINANCIAL PLANNING ADVISOR-3 THYROID TOXICITY Allergy Unknown Uncoded 10/17/23 02:24 Assessment & Plan Assessment & Plan (1) Schizoaffective disorder: Qualifiers: Schizoaffective disorder type: depressive Qualified Code(s): F25.1 - Schizoaffective disorder, depressive type Status: Acute Code(s): F25.9 - Schizoaffective disorder, unspecified (2) PTSD (post-traumatic stress disorder): Status: Acute Code(s): F43.10 - Post-traumatic stress disorder, unspecified (3) Multiple sclerosis: Status: Acute Code(s): G35 - Multiple sclerosis (4) Mild persistent asthma: Status: Acute Code(s): J45.30 - Mild persistent asthma, uncomplicated Plan 38-year-old female, history of schizoaffective disorder, direct admission from [facility], where patient had presented with worsening auditory hallucinations and SI. Patient is resident at [facility] for around 10 years. Patient was recently discharged from [facility] where she was admitted on 12/07. She has had several recent admissions to [facility] she was admitted to [facility] inpatient on 10/17/2023 and then again on 11/07/2023. Pt has a [facility] and [facility] order in place, with some information available in the chart, but details around actual medications appears to be missing. Patient states that she received her Haldol Decanoate injection 6 days ago while in [facility]. patient reports today hearing voices telling her to go right to go left. Pt stares blankly at times; appears to be internally preoccupied. She is difficult to engage in interview; she appears anxious. denies SI or HI This lyric writer spoke to Griselda DONYA, patient's guardian: Her concerns are to try to help Anjali get back to baseline she had 2 years stability while at the [facility]. She reports that there have been problems with medication, getting the correct medication on time due to a number of factors difficulty with the rims certification, difficulty with the [facility] not having the correct equipment when her injection was done was due, and after different hospitalizations medication list at discharge was not complete and the residential home was unable to correct her medication list. Griselda wonders if her sister could be placed in a long-term care nursing facility for more consistent care. Hospital course: 12/19/23 continue tx plan, hold haldol deconoate until can verify last given dose from [facility] or [facility], encourage PO intake 12/20/23 cont tx 12/20 pt reports continued incessant AH, however they are only saying things like go straight...go left...go right and no longer saying mean, provoking things. Pt asked for higher Haldol dose saying she was supposed to have it available but it was only started yesterday. She says that until about a month ago, she was doing quite well, but then her medications got changed/missed and since then she's decompensated with AH. She's not sure why her medications were changed. To her recollection she recieved Haldol Dec when she was at [facility] about a week ago. -Pt gave permission to call sister/HCP and gave Griselda's phone number. 12/21 Patient continues to report auditory hallucinations however they are still just giving her directions to follow., go left, go right.. Which she says is an improvement and they are no longer saying nasty things. Patient remains convinced that she received Haldol Decanoate at [facility]; however she accepts the [facility] providers report to this lyric writer that she did not receive it and agrees to get a now. Collateral: 1.Flash Oven Operator discussed case with patient's sister Griselda: pt doing well on regimen (clozapine, invega sustenna, Haldol Dec +prn) until this past august when she got dx with MS and was hospitalized during which time Invega held and that and other psych meds accidentally not restarted (or delayed...). AH returned and since then, patients sister has been trying to get proper med regimen restarted (at one pt there was problem with clozapine rems). Reviewed list of meds and will change accordingly (increasing mag-oxide to 500mg which is her outpt dose and helped reduce need for clozapine) 2.Flash Oven Operator [facility] that pt was NOT given Haldol Dec or any other long acting med while there. She did increase her Clozapine to 175mg at 2pm and 275mg at 5pm. 12/22 remains with troubling AH, negative symptoms; continue treatment plan 12/26 pt reports that AH remain the same, no less intensity. However, but is much brighter, smiling at times, says she feels ok and has been out of her room attending groups...She agrees that this behavior may signify improvement at least in her mood, if not her ability to ignore voices. -continue current tx regimen -will consider increasing clozapine 6/ more thought blocking today; AH remain quite debilitating and patient did not attend any groups today, unable to concentrate on very much due to internal preoccupation. Agrees to go up on Clozaril for now -patient reviewed her allergy list and says she has not allergic to trazodone nor she allergic to alpha lipoic acid, FINANCIAL PLANNING ADVISOR 3 thyroid; also that pork allergy does not cross over to medications. -patient is a candidate for ECT if medication management does not resolve issue as she has refractory psychotic illness and negative symptoms 12/28 1st time patient said voices are little better, talking a little less; continue current treatment plan 12/29 mild improvements, patient showered, AH remains a little less talkative overall but still quite problematic, evidenced by her continued isolation, significant psychomotor retardation, speech latency; discussed speech latency and patient said she is just very distracted by the voices. Discussed medications and she agreed to go up on Clozaril. 12/30 Patient feeling extra tired this morning which she agrees is likely from last night's increased Clozaril. Not much has changed, voices remain quite problematic though less over the past couple days. She agrees to continue at this current new dose and see how things go. Will get labs 01/03 voices got a little worse this afternoon, telling her to keep the door open, which is reminiscent of AH prior to admission that proved controlling and hard for her to dismiss. Discussed case with her sister Griselda who is also healthcare proxy and present on the unit, as well as patient; discussed risks/side effects of medication regimen and all agreed to go up on Clozaril for now -though she has improved some, she is far from baseline, remains impaired and vulnerable to quickly decompensated further and taking direction from ; possibly because LA eyes are coming due 01/04 AH has intensified somewhat. Patient is coming due for long-acting injectables which may be contributing to recently worsening AH. Patient due for Haldol Decanoate 100 mg which she received today 01/04 Tomorrow patient due for Invega Sustenna 234 mg 01/04 AH has intensified somewhat. Patient is coming due for long-acting injectables which may be contributing to recently worsening AH. Patient due for Haldol Decanoate 100 mg which she received today 01/04 Tomorrow patient due for Invega Sustenna 234 mg 01/05 Voices a little less; received Invega sustenna 234mg 01/06 well dressed again; in groups more and a little more outward EKG obtained and Qtc wnl 01/07 presents better (dressed) and says AH a little better, however they are more directive and she thinks they are real, though was open to reality testing 01/08 same presentation; continue tx plan 01/09 patient says voices have become a little quieter and she is overall feeling more calm. She remains significantly internally preoccupied with speech latency. Will continue to monitor. 01/10 continue tx plan; considering increasing Clozapine further given little improvement since last increase. Could instead increase Haldol however, this is increases risks of EPS 01/11 Patient up early today, before breakfast, the 1st time since this admission she has not slept until lunch time. Patient does think she is feeling better and although AH remain, she says she has been able to ignore them. She still feels far from her regular self but overall thinks things are headed in the right direction. -Patient asked for Clozaril to be increased thinking it is probably necessary. Flash Oven Operator Ambivalent since it is already higher than her home dose and she is a little bit tremulous; but further, she seems to be doing better, attending groups, speech is less latent and she is more naturally expressive. Flash Oven Operator will give it 1 more day and if symptoms do not further improve will increase Clozaril PLAN: CV Q 15 minute checks Clonazepam 1mg qhs . Clozaril 125 mg 14:00 Continue Clozaril 325 mg q.h.s.; increased on 01/03 (used to be on 250mg at home; at [facility] increased 275) Received Haldol Decanoate 100 mg on 01/04 (last received 12/21) given every q.2 weeks Magnesium oxide 500 mg Q 17:00; for treatment for psychotic symptoms Haldol 5 mg b.i.d. p.r.n. Continue Haldol 10 mg b.i.d. for now given patient is behind on Haldol and suffering from AH; plan will be to taper and eventually DC ReceivedInvega Sustenna 234 mg on 01/05 Q30 days- last dose administered 12/06/23 Thyroid 60 mg daily Omeprazole [address] 240mg BID for MS involve guardian in treatment discharge planning with team Patient educated on: diagnosis, medication risk/benefits and therapeutic strategies Informed Consent: understands Reason for continued inpatient stay Substantial Risk for: rapid decompensation Time Spent With Patient Time: Total time managing care of this patient today ____ minutes.
[2024-01-12 20:00] VITALS: BP 111/60; PULSE 113; RESP 16; TEMP 36.6; O2SAT 99
[2024-01-12] MEDS: clonazePAM 1 MG TABLET PO ×2 (20:13→21:18)
[2024-01-12] MEDS: Magnesium Oxide 400 MG TABLET 500 MG PO (21:18)
[2024-01-13 08:40] VITALS: BP 99/66; PULSE 84; RESP 14; TEMP 36.3; O2SAT 98
[2024-01-13] MEDS: Folic Acid 1 MG TABLET PO (08:44)
[2024-01-13] MEDS: Docusate Sodium 100 MG CAPSULE PO ×2 (08:44→19:59)
[2024-01-13] MEDS: Loratadine 10 MG TABLET PO (08:44)
[2024-01-13] MEDS: Propranolol HCL 10 MG TABLET PO ×2 (08:44→20:00)
[2024-01-13] MEDS: Multivitamin TABLET 1 TAB PO (08:44)
[2024-01-13] MEDS: Benztropine Mesylate 1 MG TABLET PO ×2 (08:44→20:00)
[2024-01-13] MEDS: Haloperidol Lactate Oral Conc 10 MG/5 ML ORAL.CONC PO ×2 (08:44→19:58)
[2024-01-13] MEDS: Acetaminophen 325 MG TABLET 650 MG PO (13:58)
[2024-01-13] MEDS: cloZAPine 100 MG, cloZAPine 25 MG 125 MG PO (13:59)
[2024-01-13] MEDS: clonazePAM 1 MG TABLET PO ×2 (16:38→19:59)
--- NOTE | 2024-01-13 16:57 | P.PNPSI_ITS ---
Subjective Subjective Date of Service: 01/13/24 Reason For Visit: SCHIZOPHRENIA, SI Interim History: Met with patient; discussed with team Patient continues to feel that AH is better than on admission but still quite problematic; discussed medication regimen and fact that patient has bilateral hand tremor which is likely a medication side effect. Because of this she agrees with medical technical writer's hesitation for increasing Clozaril for now; she is hoping that over the next few days things will get better but otherwise agrees to increase Clozaril further. Mental Status Exam Mental Status Exam Narrative: Pt is alert and oriented; behavior is cooperative, friendly, callm, quiet; patient is not in distress; dressed in hospital attire and adequately groomed; mood is described as okay and affect congruent, a little more expressive, still blunted, but less so; eye contact appropriate and a little more naturally expressive with less of a blank stare; Speech with thought blocking continued latency but less so; still slowed and soft; still significant psychomotor retardation present; thought process is goal directed and seems organized; Thought content is on tx for AH; denies delusional thinking and none expressed; no SI/no HI. +AH Patients insight and judgment though remains impaired but improving Diagnostics Vital Signs (24Hr): Vital Signs - 24 hr 01/12/24 20:00 01/13/24 08:40 Temperature 97.9 F 97.3 F Pulse Rate 113 H 84 Respiratory Rate 16 14 Blood Pressure 111/60 99/66 Pulse Oximetry 99 98 Oxygen Delivery Method Room Air Room Air BMI result Body Mass Index 31.4 Labs 01/06/24 12:45 Labs: Laboratory Results - last 48 hr 01/07/24 09:42 Clozapine 819 Norclozapine 325 Medications Medications Current Medications Acetaminophen (Acetaminophen 325 Mg Tablet) 650 mg PO Q6H PRN PRN Reason: Headache/Pain Mild Scale (1-3) Last Admin: 01/13/24 13:58 Dose: 650 mg Al Hydroxide/Mg Hydroxide (Magnesium Hydrox/Alum Hydrox 30 Ml Oral.Susp) 30 ml PO Q6H PRN PRN Reason: Heartburn/Nausea Last Admin: 01/12/24 03:33 Dose: 30 ml Albuterol Sulfate (Albuterol Sulfate 90 Mcg 8 Gm Inhaler) 2 puff INHALE RQ4H PRN PRN Reason: Shortness of Breath Last Admin: 01/10/24 22:13 Dose: 2 puff Benztropine Mesylate (Benztropine Mesylate 1 Mg Tablet) 1 mg PO BID [facility] Last Admin: 01/13/24 08:44 Dose: 1 mg Clonazepam (Clonazepam 0.5 Mg Tablet) 0.5 mg PO BID PRN PRN Reason: Anxiety Clonazepam (Clonazepam 1 Mg Tablet) 1 mg PO BEDTIME [facility] Last Admin: 01/12/24 21:18 Dose: 1 mg Clonazepam (Clonazepam 1 Mg Tablet) 1 mg PO DAILY@1700 [facility] Last Admin: 01/13/24 16:38 Dose: 1 mg Clozapine 100 mg/ Clozapine 25 (mg) 125 mg PO 1400 [facility] Last Admin: 01/13/24 13:59 Dose: 125 mg Clozapine 300 mg/ Clozapine 50 (mg) 350 mg PO BEDTIME [facility] Last Admin: 01/12/24 21:18 Dose: 350 mg Docusate Sodium (Docusate Sodium 100 Mg Capsule) 100 mg PO BID [facility] Last Admin: 01/13/24 08:44 Dose: 100 mg Fluticasone Propionate (Fluticasone Propionate Nasal 16 Gm [place]) 1 spray NOSTRIL-B DAILY PRN PRN Reason: nasal congestion Folic Acid (Folic Acid 1 Mg Tablet) 1 mg PO DAILY [facility] Last Admin: 01/13/24 08:44 Dose: 1 mg Haloperidol Decanoate (Haloperidol Decanoate 50 Mg/Ml Vial) 100 mg IM Q14D [facility] Last Admin: 01/05/24 13:48 Dose: 100 mg Haloperidol Lactate (Haloperidol Lactate Oral Conc 10 Mg/5 Ml Oral.Conc) 5 mg PO BID PRN PRN Reason: agitation Last Admin: 12/30/23 22:13 Dose: 5 mg Haloperidol Lactate (Haloperidol Lactate Oral Conc 10 Mg/5 Ml Oral.Conc) 10 mg PO BID [facility] Last Admin: 01/13/24 08:44 Dose: 10 mg Hydroxyzine HCl (Hydroxyzine Hcl 25 Mg Tablet) 25 mg PO Q6H PRN PRN Reason: Anxiety Last Admin: 01/12/24 00:03 Dose: 25 mg Loratadine (Loratadine 10 Mg Tablet) 10 mg PO DAILY [facility] Last Admin: 01/13/24 08:44 Dose: 10 mg Magnesium Hydroxide (Milk Of Magnesia 30 Ml Oral.Susp) 30 ml PO DAILY PRN PRN Reason: Constipation Magnesium Oxide (Magnesium Oxide 400 Mg Tablet) 500 mg PO BEDTIME [facility] Last Admin: 01/12/24 21:18 Dose: 500 mg Multivitamins/Vitamin C (Multivitamin Tablet) 1 tab PO DAILY [facility] Last Admin: 01/13/24 08:44 Dose: 1 tab Patient Own ( (Tecfidera Dr 240 Mg)) 240 mg PO BID [facility] Last Admin: 01/13/24 08:44 Dose: 240 mg Omeprazole (Omeprazole 20 Mg Capsule.Dr) 20 mg PO DAILY@0630 [facility] Last Admin: 01/13/24 06:34 Dose: Not Given Paliperidone Palmitate (Paliperidone Palmitate 234 Mg/1.5 Ml Syringe) 234 mg IM Q30D [facility] Last Admin: 01/06/24 13:54 Dose: 234 mg Polyethylene Glycol (Polyethylene Glycol 3350 17 Gm Powd.Pack) 17 gm PO DAILY PRN PRN Reason: ongoing Constipation Propranolol HCl (Propranolol Hcl 10 Mg Tablet) 10 mg PO BID [facility]; Protocol Last Admin: 01/13/24 08:44 Dose: 10 mg Thyroid (Thyroid,Pork 30 Mg Tablet) 60 mg PO DAILY@0600 [facility] Last Admin: 01/13/24 06:34 Dose: Not Given Vitamin A/Vitamin D (A And D Ointment 56.7 Gm Tube) 1 appl TOPICAL BID [facility]; Protocol Last Admin: 01/13/24 08:45 Dose: Not Given Allergies Allergies Allergy/AdvReac Type Severity Reaction Status Date / Time Pork/Porcine Containing Allergy Unknown RASH Verified 12/28/23 14:54 Products [PORK/PORCINE CONTAINING PRODUCTS] ALPHA LIPOIC ACID Allergy Unknown Uncoded 10/17/23 02:24 BI ANALYST-3 THYROID TOXICITY Allergy Unknown Uncoded 10/17/23 02:24 Assessment & Plan Assessment & Plan (1) Schizoaffective disorder: Qualifiers: Schizoaffective disorder type: depressive Qualified Code(s): F25.1 - Schizoaffective disorder, depressive type Status: Acute Code(s): F25.9 - Schizoaffective disorder, unspecified (2) PTSD (post-traumatic stress disorder): Status: Acute Code(s): F43.10 - Post-traumatic stress disorder, unspecified (3) Multiple sclerosis: Status: Acute Code(s): G35 - Multiple sclerosis (4) Mild persistent asthma: Status: Acute Code(s): J45.30 - Mild persistent asthma, uncomplicated Plan 38-year-old female, history of schizoaffective disorder, direct admission from [facility], where patient had presented with worsening auditory hallucinations and SI. Patient is resident at [facility] for around 10 years. Patient was recently discharged from [facility] where she was admitted on 12/07. She has had several recent admissions to [facility] she was admitted [facility] on 10/17/2023 and then again on 11/07/2023. Pt has a [facility] and [facility] order in place, with some information available in the chart, but details around actual medications appears to be missing. Patient states that she received her Haldol Decanoate injection 6 days ago while in [facility]. patient reports today hearing voices telling her to go right to go left. Pt stares blankly at times; appears to be internally preoccupied. She is difficult to engage in interview; she appears anxious. denies SI or HI This medical technical writer spoke to Griselda DONYA, patient's guardian: Her concerns are to try to help Anjali get back to baseline she had 2 years stability while at the [facility]. She reports that there have been problems with medication, getting the correct medication on time due to a number of factors difficulty with the rims certification, difficulty with the [facility] not having the correct equipment when her injection was done was due, and after different hospitalizations medication list at discharge was not complete and the residential home was unable to correct her medication list. Griselda wonders if her sister could be placed in a long-term care nursing facility for more consistent care. Hospital course: 12/19/23 continue tx plan, hold haldol deconoate until can verify last given dose from [facility] or [facility], encourage PO intake 12/20/23 cont tx 12/20 pt reports continued incessant AH, however they are only saying things like go straight...go left...go right and no longer saying mean, provoking things. Pt asked for higher Haldol dose saying she was supposed to have it available but it was only started yesterday. She says that until about a month ago, she was doing quite well, but then her medications got changed/missed and since then she's decompensated with AH. She's not sure why her medications were changed. To her recollection she recieved Haldol Dec when she was at [facility] about a week ago. -Pt gave permission to call sister/HCP and gave Griselda's phone number. 12/21 Patient continues to report auditory hallucinations however they are still just giving her directions to follow., go left, go right.. Which she says is an improvement and they are no longer saying nasty things. Patient remains convinced that she received Haldol Decanoate at [facility]; however she accepts the [facility] providers report to this medical technical writer that she did not receive it and agrees to get a now. Collateral: 1.Airframe And Powerplant Mechanic discussed case with patient's sister Griselda: pt doing well on regimen (clozapine, invega sustenna, Haldol Dec +prn) until this past august when she got dx with MS and was hospitalized during which time Invega held and that and other psych meds accidentally not restarted (or delayed...). AH returned and since then, patients sister has been trying to get proper med regimen restarted (at one pt there was problem with clozapine rems). Reviewed list of meds and will change accordingly (increasing mag-oxide to 500mg which is her outpt dose and helped reduce need for clozapine) 2.Airframe And Powerplant Mechanic [facility] who reports that pt was NOT given Haldol Dec or any other long acting med while there. She did increase her Clozapine to 175mg at 2pm and 275mg at 5pm. 12/22 remains with troubling AH, negative symptoms; continue treatment plan 12/26 pt reports that AH remain the same, no less intensity. However, but is much brighter, smiling at times, says she feels ok and has been out of her room attending groups...She agrees that this behavior may signify improvement at least in her mood, if not her ability to ignore voices. -continue current tx regimen -will consider increasing clozapine 6/ more thought blocking today; AH remain quite debilitating and patient did not attend any groups today, unable to concentrate on very much due to internal preoccupation. Agrees to go up on Clozaril for now -patient reviewed her allergy list and says she has not allergic to trazodone nor she allergic to alpha lipoic acid, BI ANALYST 3 thyroid; also that pork allergy does not cross over to medications. -patient is a candidate for ECT if medication management does not resolve issue as she has refractory psychotic illness and negative symptoms 12/28 1st time patient said voices are little better, talking a little less; continue current treatment plan 12/29 mild improvements, patient showered, AH remains a little less talkative overall but still quite problematic, evidenced by her continued isolation, significant psychomotor retardation, speech latency; discussed speech latency and patient said she is just very distracted by the voices. Discussed medications and she agreed to go up on Clozaril. 12/30 Patient feeling extra tired this morning which she agrees is likely from last night's increased Clozaril. Not much has changed, voices remain quite problematic though less over the past couple days. She agrees to continue at this current new dose and see how things go. Will get labs 01/03 voices got a little worse this afternoon, telling her to keep the door open, which is reminiscent of AH prior to admission that proved controlling and hard for her to dismiss. Discussed case with her sister Griselda who is also healthcare proxy and present on the unit, as well as patient; discussed risks/side effects of medication regimen and all agreed to go up on Clozaril for now -though she has improved some, she is far from baseline, remains impaired and vulnerable to quickly decompensated further and taking direction from AH; possibly because LA eyes are coming due 01/04 AH has intensified somewhat. Patient is coming due for long-acting injectables which may be contributing to recently worsening AH. Patient due for Haldol Decanoate 100 mg which she received today 01/04 Tomorrow patient due for Invega Sustenna 234 mg 01/04 AH has intensified somewhat. Patient is coming due for long-acting injectables which may be contributing to recently worsening AH. Patient due for Haldol Decanoate 100 mg which she received today 01/04 Tomorrow patient due for Invega Sustenna 234 mg 01/05 Voices a little less; received Invega sustenna 234mg 01/06 well dressed again; in groups more and a little more outward EKG obtained and Qtc wnl 01/07 presents better (dressed) and says AH a little better, however they are more directive and she thinks they are real, though was open to reality testing 01/08 same presentation; continue tx plan 01/09 patient says voices have become a little quieter and she is overall feeling more calm. She remains significantly internally preoccupied with speech latency. Will continue to monitor. 01/10 continue tx plan; considering increasing Clozapine further given little improvement since last increase. Could instead increase Haldol however, this is increases risks of EPS 01/11 Patient up early today, before breakfast, the 1st time since this admission she has not slept until lunch time. Patient does think she is feeling better and although AH remain, she says she has been able to ignore them. She still feels far from her regular self but overall thinks things are headed in the right direction. -Patient asked for Clozaril to be increased thinking it is probably necessary. Airframe And Powerplant Mechanic Ambivalent since it is already higher than her home dose and she is a little bit tremulous; but further, she seems to be doing better, attending groups, speech is less latent and she is more naturally expressive. Airframe And Powerplant Mechanic will give it 1 more day and if symptoms do not further improve will increase Clozaril 01/12 Patient continues to feel that AH is better than on admission but still quite problematic; discussed medication regimen and fact that patient has bilateral hand tremor which is likely a medication side effect. Because of this she agrees with medical technical writer's hesitation for increasing Clozaril for now; she is hoping that over the next few days things will get better but otherwise agrees to increase Clozaril further. -if no further improvement over next few days will increase Clozaril another 12.5mg -ordered labs/clozapine level -monitor tremor and signs for clozapine toxicity (none others thus far) PLAN: CV Q 15 minute checks Clonazepam 1mg qhs . Clozaril 125 mg 14:00 Continue Clozaril 325 mg q.h.s.; increased on 01/03 (used to be on 250mg at home; at [facility] increased 275) Received Haldol Decanoate 100 mg on 01/04 (last received 12/21) given every q.2 weeks Magnesium oxide 500 mg Q 17:00; for treatment for psychotic symptoms Haldol 5 mg b.i.d. p.r.n. Continue Haldol 10 mg b.i.d. for now given patient is behind on Haldol and suffering from AH; plan will be to taper and eventually DC ReceivedInvega Sustenna 234 mg on 01/05 Q30 days- last dose administered 12/06/23 Thyroid 60 mg daily Omeprazole [address] 240mg BID for MS involve guardian in treatment discharge planning with team Patient educated on: diagnosis, medication risk/benefits and therapeutic strategies Informed Consent: understands Reason for continued inpatient stay Substantial Risk for: inability to function Time Spent With Patient Time: Total time managing care of this patient today ____ minutes.
[2024-01-13] MEDS: Magnesium Oxide 400 MG TABLET 500 MG PO (19:59)
[2024-01-13 20:00] VITALS: BP 98/55; PULSE 107; RESP 18; TEMP 36.6; O2SAT 98
[2024-01-13] MEDS: A and D Ointment 56.7 GM TUBE 1 APPL TOPICAL (20:01)
[2024-01-14] MEDS: Omeprazole 20 MG CAPSULE.DR PO (06:49)
[2024-01-14] MEDS: Thyroid,Pork 30 MG TABLET 60 MG PO (06:49)
[2024-01-14 08:00] VITALS: BP 115/56; PULSE 80; RESP 16; TEMP 36.5; O2SAT 96
[2024-01-14] MEDS: Haloperidol Lactate Oral Conc 10 MG/5 ML ORAL.CONC PO ×2 (08:35→20:55)
[2024-01-14] MEDS: Benztropine Mesylate 1 MG TABLET PO ×2 (08:36→20:55)
[2024-01-14] MEDS: Propranolol HCL 10 MG TABLET PO ×2 (08:36→20:59)
[2024-01-14] MEDS: Folic Acid 1 MG TABLET PO (08:36)
[2024-01-14] MEDS: Loratadine 10 MG TABLET PO (08:36)
[2024-01-14] MEDS: Multivitamin TABLET 1 TAB PO (08:36)
[2024-01-14] MEDS: Docusate Sodium 100 MG CAPSULE PO ×2 (08:36→20:55)
--- NOTE | 2024-01-14 12:28 | HO.PSYCHPN ---
Subjective Subjective Date of Service: 01/14/24 Reason For Visit: SCHIZOPHRENIA, SI Subjective Notes: Conditional Voluntary Interim History: Pt slept through the night. Initially when this script writer entered her room, she was on her knees per pt praying. She asked me to return in few minutes. When I returned pt states that yesterday was a better day in that she was hearing less voices. She reports today she continues to hear voices and they are disruptive. She reports voices tell her to do things. She reports praying makes her feel better but this is not because voices are telling her to pray. She denies that voices are of diabolical nature. She also report she thinks clozaril increase may be more sedating but she actually does not look sedated or somnolent. She reports passive SI, denies any plan or intent. Review of Systems Review of Systems Denies Yes all other systems are reviewed and are negative Mental Status Exam Mental Status Exam Narrative: Pt is alert and oriented; behavior is cooperative, friendly, callm, quiet; patient is not in distress; dressed in hospital attire and adequately groomed; mood is described as okay and affect congruent, a little more expressive, still blunted, but less so; eye contact appropriate and a little more naturally expressive with less of a blank stare; Speech with thought blocking continued latency but less so; still slowed and soft; still significant psychomotor retardation present; thought process is goal directed and seems organized; Thought content is on tx for AH; denies delusional thinking and none expressed; no SI/no HI. +AH Patients insight and judgment though remains impaired but improving Diagnostics Vital Signs (24Hr): Vital Signs - 24 hr 01/13/24 20:00 01/13/24 20:00 01/14/24 08:00 Temperature 97.8 F 97.7 F Pulse Rate 107 H 107 H 80 Respiratory Rate 18 16 Blood Pressure 98/55 L 98/55 L 115/56 L Pulse Oximetry 98 96 Oxygen Delivery Method Room Air Room Air BMI result Body Mass Index 31.4 Labs 01/06/24 12:45 Medications Medications Current Medications Acetaminophen (Acetaminophen 325 Mg Tablet) 650 mg PO Q6H PRN PRN Reason: Headache/Pain Mild Scale (1-3) Last Admin: 01/13/24 13:58 Dose: 650 mg Al Hydroxide/Mg Hydroxide (Magnesium Hydrox/Alum Hydrox 30 Ml Oral.Susp) 30 ml PO Q6H PRN PRN Reason: Heartburn/Nausea Last Admin: 01/12/24 03:33 Dose: 30 ml Albuterol Sulfate (Albuterol Sulfate 90 Mcg 8 Gm Inhaler) 2 puff INHALE RQ4H PRN PRN Reason: Shortness of Breath Last Admin: 01/10/24 22:13 Dose: 2 puff Benztropine Mesylate (Benztropine Mesylate 1 Mg Tablet) 1 mg PO BID [facility] Last Admin: 01/14/24 08:36 Dose: 1 mg Clonazepam (Clonazepam 0.5 Mg Tablet) 0.5 mg PO BID PRN PRN Reason: Anxiety Clonazepam (Clonazepam 1 Mg Tablet) 1 mg PO BEDTIME [facility] Last Admin: 01/13/24 19:59 Dose: 1 mg Clonazepam (Clonazepam 1 Mg Tablet) 1 mg PO DAILY@1700 [facility] Last Admin: 01/13/24 16:38 Dose: 1 mg Clozapine 100 mg/ Clozapine 25 (mg) 125 mg PO 1400 [facility] Last Admin: 01/13/24 13:59 Dose: 125 mg Clozapine 300 mg/ Clozapine 50 (mg) 350 mg PO BEDTIME [facility] Last Admin: 01/13/24 19:59 Dose: 350 mg Docusate Sodium (Docusate Sodium 100 Mg Capsule) 100 mg PO BID [facility] Last Admin: 01/14/24 08:36 Dose: 100 mg Fluticasone Propionate (Fluticasone Propionate Nasal 16 Gm Alborn) 1 spray NOSTRIL-B DAILY PRN PRN Reason: nasal congestion Folic Acid (Folic Acid 1 Mg Tablet) 1 mg PO DAILY [facility] Last Admin: 01/14/24 08:36 Dose: 1 mg Haloperidol Decanoate (Haloperidol Decanoate 50 Mg/Ml Vial) 100 mg IM Q14D [facility] Last Admin: 01/05/24 13:48 Dose: 100 mg Haloperidol Lactate (Haloperidol Lactate Oral Conc 10 Mg/5 Ml Oral.Conc) 5 mg PO BID PRN PRN Reason: agitation Last Admin: 12/30/23 22:13 Dose: 5 mg Haloperidol Lactate (Haloperidol Lactate Oral Conc 10 Mg/5 Ml Oral.Conc) 10 mg PO BID [facility] Last Admin: 01/14/24 08:35 Dose: 10 mg Hydroxyzine HCl (Hydroxyzine Hcl 25 Mg Tablet) 25 mg PO Q6H PRN PRN Reason: Anxiety Last Admin: 01/12/24 00:03 Dose: 25 mg Loratadine (Loratadine 10 Mg Tablet) 10 mg PO DAILY [facility] Last Admin: 01/14/24 08:36 Dose: 10 mg Magnesium Hydroxide (Milk Of Magnesia 30 Ml Oral.Susp) 30 ml PO DAILY PRN PRN Reason: Constipation Magnesium Oxide (Magnesium Oxide 400 Mg Tablet) 500 mg PO BEDTIME [facility] Last Admin: 01/13/24 19:59 Dose: 400 mg Multivitamins/Vitamin C (Multivitamin Tablet) 1 tab PO DAILY [facility] Last Admin: 01/14/24 08:36 Dose: 1 tab Patient Own ( (Tecfidera Dr 240 Mg)) 240 mg PO BID [facility] Last Admin: 01/14/24 08:35 Dose: 240 mg Omeprazole (Omeprazole 20 Mg Capsule.Dr) 20 mg PO DAILY@0630 [facility] Last Admin: 01/14/24 06:49 Dose: 20 mg Paliperidone Palmitate (Paliperidone Palmitate 234 Mg/1.5 Ml Syringe) 234 mg IM Q30D [facility] Last Admin: 01/06/24 13:54 Dose: 234 mg Polyethylene Glycol (Polyethylene Glycol 3350 17 Gm Powd.Pack) 17 gm PO DAILY PRN PRN Reason: ongoing Constipation Propranolol HCl (Propranolol Hcl 10 Mg Tablet) 10 mg PO BID [facility]; Protocol Last Admin: 01/14/24 08:36 Dose: 10 mg Thyroid (Thyroid,Pork 30 Mg Tablet) 60 mg PO DAILY@0600 [facility] Last Admin: 01/14/24 06:49 Dose: 60 mg Vitamin A/Vitamin D (A And D Ointment 56.7 Gm Tube) 1 appl TOPICAL BID [facility]; Protocol Last Admin: 01/14/24 08:59 Dose: Not Given Allergies Allergies Allergy/AdvReac Type Severity Reaction Status Date / Time Pork/Porcine Containing Allergy Unknown RASH Verified 12/28/23 14:54 Products [PORK/PORCINE CONTAINING PRODUCTS] ALPHA LIPOIC ACID Allergy Unknown Uncoded 10/17/23 02:24 GRAVEL SCREENER-3 THYROID TOXICITY Allergy Unknown Uncoded 10/17/23 02:24 Assessment & Plan Assessment & Plan (1) Schizoaffective disorder: Qualifiers: Schizoaffective disorder type: depressive Qualified Code(s): F25.1 - Schizoaffective disorder, depressive type Status: Acute Code(s): F25.9 - Schizoaffective disorder, unspecified (2) PTSD (post-traumatic stress disorder): Status: Acute Code(s): F43.10 - Post-traumatic stress disorder, unspecified (3) Multiple sclerosis: Status: Acute Code(s): G35 - Multiple sclerosis (4) Mild persistent asthma: Status: Acute Code(s): J45.30 - Mild persistent asthma, uncomplicated Plan 38-year-old female, history of schizoaffective disorder, direct admission from [facility], where patient had presented with worsening auditory hallucinations and SI. Patient is resident at [facility] for around 10 years. Patient was recently discharged from [facility] where she was admitted on 12/07. She has had several recent admissions to [facility] she was admitted to [facility] inpatient on 10/17/2023 and then again on 11/07/2023. Pt has a [facility] and [facility] order in place, with some information available in the chart, but details around actual medications appears to be missing. Patient states that she received her Haldol Decanoate injection 6 days ago while in [facility]. patient reports today hearing voices telling her to go right to go left. Pt stares blankly at times; appears to be internally preoccupied. She is difficult to engage in interview; she appears anxious. denies SI or HI This script writer spoke to Griselda DONYA, patient's guardian: Her concerns are to try to help Anjali get back to baseline she had 2 years stability while at the [facility]. She reports that there have been problems with medication, getting the correct medication on time due to a number of factors difficulty with the rims certification, difficulty with the [facility] not having the correct equipment when her injection was done was due, and after different hospitalizations medication list at discharge was not complete and the residential home was unable to correct her medication list. Griselda wonders if her sister could be placed in a long-term care nursing facility for more consistent care. Hospital course: 12/19/23 continue tx plan, hold haldol deconoate until can verify last given dose from [facility] or [facility], encourage PO intake 12/20/23 cont tx 12/20 pt reports continued incessant AH, however they are only saying things like go straight...go left...go right and no longer saying mean, provoking things. Pt asked for higher Haldol dose saying she was supposed to have it available but it was only started yesterday. She says that until about a month ago, she was doing quite well, but then her medications got changed/missed and since then she's decompensated with AH. She's not sure why her medications were changed. To her recollection she recieved Haldol Dec when she was at [facility] about a week ago. -Pt gave permission to call sister/HCP and gave Griselda's phone number. 12/21 Patient continues to report auditory hallucinations however they are still just giving her directions to follow., go left, go right.. Which she says is an improvement and they are no longer saying nasty things. Patient remains convinced that she received Haldol Decanoate at [facility]; however she accepts the [facility] providers report to this script writer that she did not receive it and agrees to get a now. Collateral: 1.Hair Spinning Machine Operator discussed case with patient's sister Griselda: pt doing well on regimen (clozapine, invega sustenna, Haldol Dec +prn) until this past august when she got dx with MS and was hospitalized during which time Invega held and that and other psych meds accidentally not restarted (or delayed...). AH returned and since then, patients sister has been trying to get proper med regimen restarted (at one pt there was problem with clozapine rems). Reviewed list of meds and will change accordingly (increasing mag-oxide to 500mg which is her outpt dose and helped reduce need for clozapine) 2.Hair Spinning Machine Operator [facility] reports that pt was NOT given Haldol Dec or any other long acting med while there. She did increase her Clozapine to 175mg at 2pm and 275mg at 5pm. 12/22 remains with troubling AH, negative symptoms; continue treatment plan 12/26 pt reports that AH remain the same, no less intensity. However, but is much brighter, smiling at times, says she feels ok and has been out of her room attending groups...She agrees that this behavior may signify improvement at least in her mood, if not her ability to ignore voices. -continue current tx regimen -will consider increasing clozapine 12/27 more thought blocking today; AH remain quite debilitating and patient did not attend any groups today, unable to concentrate on very much due to internal preoccupation. Agrees to go up on Clozaril for now -patient reviewed her allergy list and says she has not allergic to trazodone nor she allergic to alpha lipoic acid, GRAVEL SCREENER 3 thyroid; also that pork allergy does not cross over to medications. -patient is a candidate for ECT if medication management does not resolve issue as she has refractory psychotic illness and negative symptoms 12/28 1st time patient said voices are little better, talking a little less; continue current treatment plan 12/29 mild improvements, patient showered, AH remains a little less talkative overall but still quite problematic, evidenced by her continued isolation, significant psychomotor retardation, speech latency; discussed speech latency and patient said she is just very distracted by the voices. Discussed medications and she agreed to go up on Clozaril. 12/30 Patient feeling extra tired this morning which she agrees is likely from last night's increased Clozaril. Not much has changed, voices remain quite problematic though less over the past couple days. She agrees to continue at this current new dose and see how things go. Will get labs 01/03 voices got a little worse this afternoon, telling her to keep the door open, which is reminiscent of AH prior to admission that proved controlling and hard for her to dismiss. Discussed case with her sister Griselda who is also healthcare proxy and present on the unit, as well as patient; discussed risks/side effects of medication regimen and all agreed to go up on Clozaril for now -though she has improved some, she is far from baseline, remains impaired and vulnerable to quickly decompensated further and taking direction from AH; possibly because [place] eyes are coming due 01/04 AH has intensified somewhat. Patient is coming due for long-acting injectables which may be contributing to recently worsening AH. Patient due for Haldol Decanoate 100 mg which she received today 01/04 Tomorrow patient due for Invega Sustenna 234 mg 01/04 AH has intensified somewhat. Patient is coming due for long-acting injectables which may be contributing to recently worsening AH. Patient due for Haldol Decanoate 100 mg which she received today 01/04 Tomorrow patient due for Invega Sustenna 234 mg 01/05 Voices a little less; received Invega sustenna 234mg 01/06 well dressed again; in groups more and a little more outward EKG obtained and Qtc wnl 01/07 presents better (dressed) and says AH a little better, however they are more directive and she thinks they are real, though was open to reality testing 01/08 same presentation; continue tx plan 01/09 patient says voices have become a little quieter and she is overall feeling more calm. She remains significantly internally preoccupied with speech latency. Will continue to monitor. 01/10 continue tx plan; considering increasing Clozapine further given little improvement since last increase. Could instead increase Haldol however, this is increases risks of EPS 01/11 Patient up early today, before breakfast, the 1st time since this admission she has not slept until lunch time. Patient does think she is feeling better and although AH remain, she says she has been able to ignore them. She still feels far from her regular self but overall thinks things are headed in the right direction. -Patient asked for Clozaril to be increased thinking it is probably necessary. Hair Spinning Machine Operator Ambivalent since it is already higher than her home dose and she is a little bit tremulous; but further, she seems to be doing better, attending groups, speech is less latent and she is more naturally expressive. Hair Spinning Machine Operator will give it 1 more day and if symptoms do not further improve will increase Clozaril 01/12 Patient continues to feel that AH is better than on admission but still quite problematic; discussed medication regimen and fact that patient has bilateral hand tremor which is likely a medication side effect. Because of this she agrees with script writer's hesitation for increasing Clozaril for now; she is hoping that over the next few days things will get better but otherwise agrees to increase Clozaril further. -if no further improvement over next few days will increase Clozaril another 12.5mg -ordered labs/clozapine level -monitor tremor and signs for clozapine toxicity (none others thus far) 01/13 continue tx. PLAN: CV Q 15 minute checks Clonazepam 1mg qhs . Clozaril 125 mg 14:00 Continue Clozaril 325 mg q.h.s.; increased on 01/03 (used to be on 250mg at home; at [facility] increased 275) Received Haldol Decanoate 100 mg on 01/04 (last received 12/21) given every q.2 weeks Magnesium oxide 500 mg Q 17:00; for treatment for psychotic symptoms Haldol 5 mg b.i.d. p.r.n. Continue Haldol 10 mg b.i.d. for now given patient is behind on Haldol and suffering from AH; plan will be to taper and eventually DC ReceivedInvega Sustenna 234 mg on 01/05 Q30 days- last dose administered 12/06/23 Thyroid 60 mg daily Omeprazole [address] 240mg BID for MS involve guardian in treatment discharge planning with team Reason for continued inpatient stay Substantial Risk for: inability to function Time Spent With Patient Time: Total time managing care of this patient today ____ minutes.
[2024-01-14] MEDS: cloZAPine 100 MG, cloZAPine 25 MG 125 MG PO (14:18)
[2024-01-14] MEDS: clonazePAM 1 MG TABLET PO ×2 (17:37→20:55)
[2024-01-14 20:00] VITALS: BP 136/82; PULSE 110; RESP 18; TEMP 36.7; O2SAT 98
[2024-01-14] MEDS: Magnesium Oxide 400 MG TABLET 500 MG PO (20:55)
[2024-01-14 20:59] VITALS: BP 136/82; PULSE 98
[2024-01-14] MEDS: Acetaminophen 325 MG TABLET 650 MG PO (22:18)
[2024-01-15] MEDS: Omeprazole 20 MG CAPSULE.DR PO (06:37)
[2024-01-15] MEDS: Thyroid,Pork 30 MG TABLET 60 MG PO (06:37)
[2024-01-15 08:23] VITALS: BP 119/79; PULSE 82; RESP 16; TEMP 36.8; O2SAT 98
[2024-01-15] MEDS: Benztropine Mesylate 1 MG TABLET PO ×2 (08:50→20:09)
[2024-01-15] MEDS: Docusate Sodium 100 MG CAPSULE PO ×2 (08:50→20:09)
[2024-01-15] MEDS: Loratadine 10 MG TABLET PO (08:50)
[2024-01-15] MEDS: Multivitamin TABLET 1 TAB PO (08:50)
[2024-01-15] MEDS: Folic Acid 1 MG TABLET PO (08:50)
[2024-01-15] MEDS: Haloperidol Lactate Oral Conc 10 MG/5 ML ORAL.CONC PO ×2 (08:51→20:08)
[2024-01-15 08:52] VITALS: BP 119/79; PULSE 100
[2024-01-15] MEDS: Propranolol HCL 10 MG TABLET PO ×2 (08:52→20:09)
[2024-01-15] MEDS: cloZAPine 100 MG, cloZAPine 25 MG 125 MG PO (14:09)
--- NOTE | 2024-01-15 18:29 | HO.PSYCHPN ---
Subjective Subjective Date of Service: 01/15/24 Reason For Visit: SCHIZOPHRENIA, SI Interim History: Pt very tired today; lying in bed; soft spoken; She reports today she continues to hear voices. she is withdrawn. Medication Compliance: Yes Side effects from medications: Yes (sedaton? ) Attending Groups: No Review of Systems Acute medical concerns: No Medical Review of Systems: unchanged Review of Systems Review of Systems Denies Yes all other systems are reviewed and are negative Mental Status Exam Mental Status Exam Patient Appearance: Fatigued Patient Orientation: Person, Place, Time and Situation Level of Consciousness: Drowsy Patient Behavior: Appropriate, Sedated and Poor Eye Contact Mood Description: Withdrawn and Depressed Affect Description: Flat Patient Cognition Impaired: No Ability to Follow Directions: Fair Speech Pattern: Spontaneous Speech and Soft-Spoken Memory Description: Intact Judgement: Fair Diagnostics Vital Signs (24Hr): Vital Signs - 24 hr 01/14/24 20:00 01/14/24 20:59 01/15/24 08:23 Temperature 98.0 F 98.2 F Pulse Rate 110 H 98 82 Respiratory Rate 18 16 Blood Pressure 136/82 136/82 119/79 Pulse Oximetry 98 98 Oxygen Delivery Method Room Air Room Air 01/15/24 08:52 Temperature Pulse Rate 100 Respiratory Rate Blood Pressure 119/79 Pulse Oximetry Oxygen Delivery Method BMI result Body Mass Index 31.4 Labs 01/16/24 11:32 Medications Medications Current Medications Al Hydroxide/Mg Hydroxide (Magnesium Hydrox/Alum Hydrox 30 Ml Oral.Susp) 30 ml PO Q6H PRN PRN Reason: Heartburn/Nausea Last Admin: 01/12/24 03:33 Dose: 30 ml Albuterol Sulfate (Albuterol Sulfate 90 Mcg 8 Gm Inhaler) 2 puff INHALE RQ4H PRN PRN Reason: Shortness of Breath Last Admin: 01/10/24 22:13 Dose: 2 puff Benztropine Mesylate (Benztropine Mesylate 1 Mg Tablet) 1 mg PO BID [facility] Last Admin: 01/15/24 08:50 Dose: 1 mg Clonazepam (Clonazepam 0.5 Mg Tablet) 0.5 mg PO BID PRN PRN Reason: Anxiety Clonazepam (Clonazepam 1 Mg Tablet) 1 mg PO BEDTIME [facility] Last Admin: 01/14/24 20:55 Dose: 1 mg Clonazepam (Clonazepam 1 Mg Tablet) 1 mg PO DAILY@1700 [facility] Last Admin: 01/14/24 17:37 Dose: 1 mg Clozapine 100 mg/ Clozapine 25 (mg) 125 mg PO 1400 [facility] Last Admin: 01/15/24 14:09 Dose: 125 mg Clozapine 300 mg/ Clozapine 50 (mg) 350 mg PO BEDTIME [facility] Last Admin: 01/14/24 20:54 Dose: 350 mg Docusate Sodium (Docusate Sodium 100 Mg Capsule) 100 mg PO BID [facility] Last Admin: 01/15/24 08:50 Dose: 100 mg Fluticasone Propionate (Fluticasone Propionate Nasal 16 Gm [place]) 1 spray NOSTRIL-B DAILY PRN PRN Reason: nasal congestion Folic Acid (Folic Acid 1 Mg Tablet) 1 mg PO DAILY [facility] Last Admin: 01/15/24 08:50 Dose: 1 mg Haloperidol Decanoate (Haloperidol Decanoate 50 Mg/Ml Vial) 100 mg IM Q14D [facility] Last Admin: 01/05/24 13:48 Dose: 100 mg Haloperidol Lactate (Haloperidol Lactate Oral Conc 10 Mg/5 Ml Oral.Conc) 5 mg PO BID PRN PRN Reason: agitation Last Admin: 12/30/23 22:13 Dose: 5 mg Haloperidol Lactate (Haloperidol Lactate Oral Conc 10 Mg/5 Ml Oral.Conc) 10 mg PO BID [facility] Last Admin: 01/15/24 08:51 Dose: 10 mg Hydroxyzine HCl (Hydroxyzine Hcl 25 Mg Tablet) 25 mg PO Q6H PRN PRN Reason: Anxiety Last Admin: 01/12/24 00:03 Dose: 25 mg Loratadine (Loratadine 10 Mg Tablet) 10 mg PO DAILY [facility] Last Admin: 01/15/24 08:50 Dose: 10 mg Magnesium Hydroxide (Milk Of Magnesia 30 Ml Oral.Susp) 30 ml PO DAILY PRN PRN Reason: Constipation Magnesium Oxide (Magnesium Oxide 400 Mg Tablet) 500 mg PO BEDTIME [facility] Last Admin: 01/14/24 20:55 Dose: 500 mg Multivitamins/Vitamin C (Multivitamin Tablet) 1 tab PO DAILY [facility] Last Admin: 01/15/24 08:50 Dose: 1 tab Patient Own ( (Tecfidera Dr 240 Mg)) 240 mg PO BID [facility] Last Admin: 01/15/24 08:51 Dose: Not Given Omeprazole (Omeprazole 20 Mg Capsule.Dr) 20 mg PO DAILY@0630 [facility] Last Admin: 01/15/24 06:37 Dose: 20 mg Paliperidone Palmitate (Paliperidone Palmitate 234 Mg/1.5 Ml Syringe) 234 mg IM Q30D [facility] Last Admin: 01/06/24 13:54 Dose: 234 mg Polyethylene Glycol (Polyethylene Glycol 3350 17 Gm Powd.Pack) 17 gm PO DAILY PRN PRN Reason: ongoing Constipation Propranolol HCl (Propranolol Hcl 10 Mg Tablet) 10 mg PO BID [facility]; Protocol Last Admin: 01/15/24 08:52 Dose: 10 mg Thyroid (Thyroid,Pork 30 Mg Tablet) 60 mg PO DAILY@0600 [facility] Last Admin: 01/15/24 06:37 Dose: 60 mg Vitamin A/Vitamin D (A And D Ointment 56.7 Gm Tube) 1 appl TOPICAL BID [facility]; Protocol Last Admin: 01/15/24 08:51 Dose: Not Given Allergies Allergies Allergy/AdvReac Type Severity Reaction Status Date / Time Pork/Porcine Containing Allergy Unknown RASH Verified 12/28/23 14:54 Products [PORK/PORCINE CONTAINING PRODUCTS] ALPHA LIPOIC ACID Allergy Unknown Uncoded 10/17/23 02:24 GOODS LAYER-3 THYROID TOXICITY Allergy Unknown Uncoded 10/17/23 02:24 Assessment & Plan Assessment & Plan (1) Schizoaffective disorder: Qualifiers: Schizoaffective disorder type: depressive Qualified Code(s): F25.1 - Schizoaffective disorder, depressive type Status: Acute Code(s): F25.9 - Schizoaffective disorder, unspecified (2) PTSD (post-traumatic stress disorder): Status: Acute Code(s): F43.10 - Post-traumatic stress disorder, unspecified (3) Multiple sclerosis: Status: Acute Code(s): G35 - Multiple sclerosis (4) Mild persistent asthma: Status: Acute Code(s): J45.30 - Mild persistent asthma, uncomplicated Plan 38-year-old female, history of schizoaffective disorder, direct admission from [facility], where patient had presented with worsening auditory hallucinations and SI. Patient is resident at [facility] for around 10 years. Patient was recently discharged from [facility] where she was admitted on 12/07. She has had several recent admissions to [facility] she was admitted to [facility] inpatient on 10/17/2023 and then again on 11/07/2023. Pt has a [facility] order in place, with some information available in the chart, but details around actual medications appears to be missing. Patient states that she received her Haldol Decanoate injection 6 days ago while in [facility]. patient reports today hearing voices telling her to go right to go left. Pt stares blankly at times; appears to be internally preoccupied. She is difficult to engage in interview; she appears anxious. denies SI or HI This race and sports book writer spoke to Griselda DONYA, patient's guardian: Her concerns are to try to help Anjali get back to baseline she had 2 years stability while at the care home. She reports that there have been problems with medication, getting the correct medication on time due to a number of factors difficulty with the rims certification, difficulty with the [facility] not having the correct equipment when her injection was done was due, and after different hospitalizations medication list at discharge was not complete and the residential home was unable to correct her medication list. Griselda wonders if her sister could be placed in a long-term care nursing facility for more consistent care. Hospital course: 12/19/23 continue tx plan, hold haldol deconoate until can verify last given dose from [facility] or [facility], encourage PO intake 12/20/23 cont tx 12/20 pt reports continued incessant AH, however they are only saying things like go straight...go left...go right and no longer saying mean, provoking things. Pt asked for higher Haldol dose saying she was supposed to have it available but it was only started yesterday. She says that until about a month ago, she was doing quite well, but then her medications got changed/missed and since then she's decompensated with AH. She's not sure why her medications were changed. To her recollection she recieved Haldol Dec when she was at [facility] about a week ago. -Pt gave permission to call sister/HCP and gave Griselda's phone number. 12/21 Patient continues to report auditory hallucinations however they are still just giving her directions to follow., go left, go right.. Which she says is an improvement and they are no longer saying nasty things. Patient remains convinced that she received Haldol Decanoate at [facility]; however she accepts the [facility] providers report to this race and sports book writer that she did not receive it and agrees to get a now. Collateral: 1.Air Tester discussed case with patient's sister Griselda: pt doing well on regimen (clozapine, invega sustenna, Haldol Dec +prn) until this past august when she got dx with MS and was hospitalized during which time Invega held and that and other psych meds accidentally not restarted (or delayed...). AH returned and since then, patients sister has been trying to get proper med regimen restarted (at one pt there was problem with clozapine rems). Reviewed list of meds and will change accordingly (increasing mag-oxide to 500mg which is her outpt dose and helped reduce need for clozapine) 2.Air Tester [facility] reports that pt was NOT given Haldol Dec or any other long acting med while there. She did increase her Clozapine to 175mg at 2pm and 275mg at 5pm. 12/22 remains with troubling AH, negative symptoms; continue treatment plan 12/26 pt reports that AH remain the same, no less intensity. However, but is much brighter, smiling at times, says she feels ok and has been out of her room attending groups...She agrees that this behavior may signify improvement at least in her mood, if not her ability to ignore voices. -continue current tx regimen -will consider increasing clozapine 6/ more thought blocking today; AH remain quite debilitating and patient did not attend any groups today, unable to concentrate on very much due to internal preoccupation. Agrees to go up on Clozaril for now -patient reviewed her allergy list and says she has not allergic to trazodone nor she allergic to alpha lipoic acid, GOODS LAYER 3 thyroid; also that pork allergy does not cross over to medications. -patient is a candidate for ECT if medication management does not resolve issue as she has refractory psychotic illness and negative symptoms 12/28 1st time patient said voices are little better, talking a little less; continue current treatment plan 12/29 mild improvements, patient showered, AH remains a little less talkative overall but still quite problematic, evidenced by her continued isolation, significant psychomotor retardation, speech latency; discussed speech latency and patient said she is just very distracted by the voices. Discussed medications and she agreed to go up on Clozaril. 12/30 Patient feeling extra tired this morning which she agrees is likely from last night's increased Clozaril. Not much has changed, voices remain quite problematic though less over the past couple days. She agrees to continue at this current new dose and see how things go. Will get labs 01/03 voices got a little worse this afternoon, telling her to keep the door open, which is reminiscent of AH prior to admission that proved controlling and hard for her to dismiss. Discussed case with her sister Griselda who is also healthcare proxy and present on the unit, as well as patient; discussed risks/side effects of medication regimen and all agreed to go up on Clozaril for now -though she has improved some, she is far from baseline, remains impaired and vulnerable to quickly decompensated further and taking direction from AH; possibly because [place] eyes are coming due 01/04 AH has intensified somewhat. Patient is coming due for long-acting injectables which may be contributing to recently worsening AH. Patient due for Haldol Decanoate 100 mg which she received today 01/04 Tomorrow patient due for Invega Sustenna 234 mg 01/04 AH has intensified somewhat. Patient is coming due for long-acting injectables which may be contributing to recently worsening AH. Patient due for Haldol Decanoate 100 mg which she received today 01/04 Tomorrow patient due for Invega Sustenna 234 mg 01/05 Voices a little less; received Invega sustenna 234mg 01/06 well dressed again; in groups more and a little more outward EKG obtained and Qtc wnl 01/07 presents better (dressed) and says AH a little better, however they are more directive and she thinks they are real, though was open to reality testing 01/08 same presentation; continue tx plan 01/09 patient says voices have become a little quieter and she is overall feeling more calm. She remains significantly internally preoccupied with speech latency. Will continue to monitor. 01/10 continue tx plan; considering increasing Clozapine further given little improvement since last increase. Could instead increase Haldol however, this is increases risks of EPS 01/11 Patient up early today, before breakfast, the 1st time since this admission she has not slept until lunch time. Patient does think she is feeling better and although AH remain, she says she has been able to ignore them. She still feels far from her regular self but overall thinks things are headed in the right direction. -Patient asked for Clozaril to be increased thinking it is probably necessary. Air Tester Ambivalent since it is already higher than her home dose and she is a little bit tremulous; but further, she seems to be doing better, attending groups, speech is less latent and she is more naturally expressive. Air Tester will give it 1 more day and if symptoms do not further improve will increase Clozaril 01/12 Patient continues to feel that AH is better than on admission but still quite problematic; discussed medication regimen and fact that patient has bilateral hand tremor which is likely a medication side effect. Because of this she agrees with race and sports book writer's hesitation for increasing Clozaril for now; she is hoping that over the next few days things will get better but otherwise agrees to increase Clozaril further. -if no further improvement over next few days will increase Clozaril another 12.5mg -ordered labs/clozapine level -monitor tremor and signs for clozapine toxicity (none others thus far) 01/13 continue tx. PLAN: CV Q 15 minute checks Clonazepam 1mg qhs . Clozaril 125 mg 14:00 Continue Clozaril 325 mg q.h.s.; increased on 01/03 (used to be on 250mg at home; at [facility] increased 275) Received Haldol Decanoate 100 mg on 01/04 (last received 12/21) given every q.2 weeks Magnesium oxide 500 mg Q 17:00; for treatment for psychotic symptoms Haldol 5 mg b.i.d. p.r.n. Continue Haldol 10 mg b.i.d. for now given patient is behind on Haldol and suffering from AH; plan will be to taper and eventually DC ReceivedInvega Sustenna 234 mg on 01/05 Q30 days- last dose administered 12/06/23 Thyroid 60 mg daily Omeprazole [address] 240mg BID for MS involve guardian in treatment discharge planning with team 01/14 no change to clozaril dose due to pts sleepiness; continue monitor side effects; encourage fluids Patient educated on: diagnosis, medication risk/benefits and therapeutic strategies Informed Consent: further education needed Reason for continued inpatient stay Substantial Risk for: inability to function Time Spent With Patient Time: Total time managing care of this patient today ____ minutes.
[2024-01-15 20:00] VITALS: BP 115/58; PULSE 106; RESP 16; TEMP 36.3; O2SAT 97
[2024-01-15] MEDS: clonazePAM 1 MG TABLET PO ×2 (20:09→23:07)
[2024-01-15] MEDS: Magnesium Oxide 400 MG TABLET 500 MG PO (20:09)
[2024-01-16 08:10] VITALS: BP 100/61; PULSE 94; RESP 16; TEMP 36.4; O2SAT 96
[2024-01-16 08:47] VITALS: BP 100/62; PULSE 94
[2024-01-16] MEDS: Omeprazole 20 MG CAPSULE.DR PO (08:47)
[2024-01-16] MEDS: Propranolol HCL 10 MG TABLET PO ×2 (08:47→20:30)
[2024-01-16] MEDS: Docusate Sodium 100 MG CAPSULE PO ×2 (08:47→20:30)
[2024-01-16] MEDS: Multivitamin TABLET 1 TAB PO (08:47)
[2024-01-16] MEDS: Thyroid,Pork 30 MG TABLET 60 MG PO (08:47)
[2024-01-16] MEDS: Haloperidol Lactate Oral Conc 10 MG/5 ML ORAL.CONC PO (08:47)
[2024-01-16] MEDS: Loratadine 10 MG TABLET PO (08:48)
[2024-01-16] MEDS: Folic Acid 1 MG TABLET PO (08:48)
[2024-01-16] MEDS: Benztropine Mesylate 1 MG TABLET PO ×2 (08:48→20:30)
[2024-01-16 11:41] LABS: Neut%MD 63.6 %; Neutrophils Absolute Auto 3.4 x10*3/uL (2.0-8.3); WBCANC 5.4 X10*3/uL
[2024-01-16 11:57] LABS: Alanine Aminotransferase 26 U/L (0-31); Albumin Level 4.3 g/dL (3.5-5.0); Alkaline Phosphatase 84 U/L (39-117); Anion Gap 17 (12-20); Aspartate Amino Transferase 17 U/L (5-31); Bilirubin Direct 0.1 mg/dL (0.0-0.5); Bilirubin Total 0.3 mg/dL (0.0-1.0); Blood Urea Nitrogen 15 mg/dL (9-16); Calcium 9.8 mg/dL (8.4-10.2); Carbon Dioxide 25 mmol/L (22-29); Chloride 107 mmol/L (96-108); Creatinine Clr Calc Pharmacy 112.2; Estimated Glomerular Filt Rate > 60; Glucose Random 126 mg/dL (60-115); Magnesium 1.7 mg/dL (1.6-2.6); Potassium 3.9 mmol/L (3.3-5.1); Sodium 145 mmol/L (135-145); Total Protein 6.4 g/dL (6.5-8.0)
[2024-01-16 12:05] LABS: Ammonia 35 umol/L (13-55)
[2024-01-16] MEDS: cloZAPine 100 MG, cloZAPine 25 MG 125 MG PO (15:14)
--- NOTE | 2024-01-16 17:06 | HO.PSYCHPN ---
Subjective Subjective Date of Service: 01/16/24 Reason For Visit: SCHIZOPHRENIA, SI Interim History: initially refusing blood work; very sleepy in bed; quiet, slow to respond, agreed to blood work if she could stay in bed for it. Medication Compliance: Yes Side effects from medications: Yes (sleepiness) Review of Systems Acute medical concerns: No Medical Review of Systems: unchanged Mental Status Exam Mental Status Exam Patient Appearance: Unkempt Patient Orientation: Person, Place, Time and Situation Level of Consciousness: Drowsy Patient Behavior: Passive Mood Description: Withdrawn Affect Description: Withdrawn Ability to Follow Directions: Good Speech Pattern: Clear Memory Description: Intact Hallucinations: None Delusions: Not Present Thought Process: Slowed Thinking Thought Content: positive for Goal Oriented Judgement: Fair Diagnostics Vital Signs (24Hr): Vital Signs - 24 hr 01/15/24 20:00 01/16/24 08:10 01/16/24 08:47 Temperature 97.3 F 97.6 F Pulse Rate 106 H 94 94 Respiratory Rate 16 16 Blood Pressure 115/58 L 100/61 100/62 Pulse Oximetry 97 96 Oxygen Delivery Method Room Air Room Air BMI result Body Mass Index 31.4 Labs 01/16/24 11:32 Labs: Laboratory Results - last 48 hr 01/16/24 01/16/24 11:32 11:34 Absolute Neuts (auto) 3.4 Sodium 145 Potassium 3.9 Chloride 107 Carbon Dioxide 25 Anion Gap 17 BUN 15 Creatinine 0.72 Estim Creat Clear Calc 112.2 Estimated GFR > 60 Random Glucose 126 H Calcium 9.8 Magnesium 1.7 Total Bilirubin 0.3 Direct Bilirubin 0.1 AST 17 ALT 26 Alkaline Phosphatase 84 Ammonia 35 Total Protein 6.4 L Albumin 4.3 Medications Medications Current Medications Al Hydroxide/Mg Hydroxide (Magnesium Hydrox/Alum Hydrox 30 Ml Oral.Susp) 30 ml PO Q6H PRN PRN Reason: Heartburn/Nausea Last Admin: 01/12/24 03:33 Dose: 30 ml Albuterol Sulfate (Albuterol Sulfate 90 Mcg 8 Gm Inhaler) 2 puff INHALE RQ4H PRN PRN Reason: Shortness of Breath Last Admin: 01/10/24 22:13 Dose: 2 puff Benztropine Mesylate (Benztropine Mesylate 1 Mg Tablet) 1 mg PO BID LEW Last Admin: 01/16/24 08:48 Dose: 1 mg Clonazepam (Clonazepam 0.5 Mg Tablet) 0.5 mg PO BID PRN PRN Reason: Anxiety Clonazepam (Clonazepam 1 Mg Tablet) 1 mg PO BEDTIME [facility] Last Admin: 01/15/24 23:07 Dose: 1 mg Clonazepam (Clonazepam 1 Mg Tablet) 1 mg PO DAILY@1700 [facility] Last Admin: 01/15/24 20:09 Dose: 1 mg Clozapine 100 mg/ Clozapine 25 (mg) 125 mg PO 1400 [facility] Last Admin: 01/16/24 15:14 Dose: 125 mg Clozapine 300 mg/ Clozapine 50 (mg) 350 mg PO BEDTIME [facility] Last Admin: 01/15/24 20:08 Dose: 350 mg Docusate Sodium (Docusate Sodium 100 Mg Capsule) 100 mg PO BID [facility] Last Admin: 01/16/24 08:47 Dose: 100 mg Fluticasone Propionate (Fluticasone Propionate Nasal 16 Gm [place]) 1 spray NOSTRIL-B DAILY PRN PRN Reason: nasal congestion Folic Acid (Folic Acid 1 Mg Tablet) 1 mg PO DAILY [facility] Last Admin: 01/16/24 08:48 Dose: 1 mg Haloperidol Decanoate (Haloperidol Decanoate 50 Mg/Ml Vial) 100 mg IM Q14D [facility] Last Admin: 01/05/24 13:48 Dose: 100 mg Haloperidol Lactate (Haloperidol Lactate Oral Conc 10 Mg/5 Ml Oral.Conc) 5 mg PO BID PRN PRN Reason: agitation Last Admin: 12/30/23 22:13 Dose: 5 mg Haloperidol Lactate (Haloperidol Lactate Oral Conc 10 Mg/5 Ml Oral.Conc) 10 mg PO BID [facility] Last Admin: 01/16/24 08:47 Dose: 10 mg Hydroxyzine HCl (Hydroxyzine Hcl 25 Mg Tablet) 25 mg PO Q6H PRN PRN Reason: Anxiety Last Admin: 01/12/24 00:03 Dose: 25 mg Loratadine (Loratadine 10 Mg Tablet) 10 mg PO DAILY [facility] Last Admin: 01/16/24 08:48 Dose: 10 mg Magnesium Hydroxide (Milk Of Magnesia 30 Ml Oral.Susp) 30 ml PO DAILY PRN PRN Reason: Constipation Magnesium Oxide (Magnesium Oxide 400 Mg Tablet) 500 mg PO BEDTIME [facility] Last Admin: 01/15/24 20:09 Dose: 500 mg Multivitamins/Vitamin C (Multivitamin Tablet) 1 tab PO DAILY [facility] Last Admin: 01/16/24 08:47 Dose: 1 tab Patient Own ( (Tecfidera Dr 240 Mg)) 240 mg PO BID [facility] Last Admin: 01/16/24 08:48 Dose: 240 mg Omeprazole (Omeprazole 20 Mg Capsule.Dr) 20 mg PO DAILY@0630 [facility] Last Admin: 01/16/24 08:47 Dose: 20 mg Paliperidone Palmitate (Paliperidone Palmitate 234 Mg/1.5 Ml Syringe) 234 mg IM Q30D [facility] Last Admin: 01/06/24 13:54 Dose: 234 mg Polyethylene Glycol (Polyethylene Glycol 3350 17 Gm Powd.Pack) 17 gm PO DAILY PRN PRN Reason: ongoing Constipation Propranolol HCl (Propranolol Hcl 10 Mg Tablet) 10 mg PO BID [facility]; Protocol Last Admin: 01/16/24 08:47 Dose: 10 mg Thyroid (Thyroid,Pork 30 Mg Tablet) 60 mg PO DAILY@0600 [facility] Last Admin: 01/16/24 08:47 Dose: 60 mg Vitamin A/Vitamin D (A And D Ointment 56.7 Gm Tube) 1 appl TOPICAL BID [facility]; Protocol Last Admin: 01/16/24 08:49 Dose: Not Given Allergies Allergies Allergy/AdvReac Type Severity Reaction Status Date / Time Pork/Porcine Containing Allergy Unknown RASH Verified 12/28/23 14:54 Products [PORK/PORCINE CONTAINING PRODUCTS] ALPHA LIPOIC ACID Allergy Unknown Uncoded 10/17/23 02:24 PROFESSOR OF FORESTRY-3 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 TOXICITY Allergy Unknown Uncoded 10/17/23 02:24 Assessment & Plan Assessment & Plan (1) Schizoaffective disorder: Qualifiers: Schizoaffective disorder type: depressive Qualified Code(s): F25.1 - Schizoaffective disorder, depressive type Status: Acute Code(s): F25.9 - Schizoaffective disorder, unspecified (2) PTSD (post-traumatic stress disorder): Status: Acute Code(s): F43.10 - Post-traumatic stress disorder, unspecified (3) Multiple sclerosis: Status: Acute Code(s): G35 - Multiple sclerosis (4) Mild persistent asthma: Status: Acute Code(s): J45.30 - Mild persistent asthma, uncomplicated Plan 38-year-old female, history of schizoaffective disorder, direct admission from [facility], where patient had presented with worsening auditory hallucinations and SI. Patient is resident at [facility] for around 10 years. Patient was recently discharged from [facility] where she was admitted on 12/07. She has had several recent admissions to [facility] she was [place] [facility] [place] and then again on 11/07/2023. [facility], with some information available in the chart, but details around actual medications appears to be missing. Patient states that she received her Haldol Decanoate injection 6 days ago while in [facility]. patient reports today hearing voices telling her to go right to go left. Pt stares blankly at times; appears to be internally preoccupied. She is difficult to engage in interview; she appears anxious. denies SI or HI This technical report writer spoke to Griselda NAQVI, patient's guardian: Her concerns are to try to help Anjali get back to baseline she had 2 years stability while at the [facility]. She reports that there have been problems with medication, getting the correct medication on time due to a number of factors difficulty with the rims certification, difficulty with the [facility] not having the correct equipment when her injection was done was due, and after different hospitalizations medication list at discharge was not complete and the residential home was unable to correct her medication list. Griselda wonders if her sister could be placed in a long-term care nursing facility for more consistent care. Hospital course: 12/19/23 continue tx plan, hold haldol deconoate until can verify last given dose from [facility] or [facility], encourage PO intake 12/20/23 cont tx 12/20 pt reports continued incessant AH, however they are only saying things like go straight...go left...go right and no longer saying mean, provoking things. Pt asked for higher Haldol dose saying she was supposed to have it available but it was only started yesterday. She says that until about a month ago, she was doing quite well, but then her medications got changed/missed and since then she's decompensated with AH. She's not sure why her medications were changed. To her recollection she recieved Haldol Dec when she was at [facility] about a week ago. -Pt gave permission to call sister/HCP and gave Griselda's phone number. 12/21 Patient continues to report auditory hallucinations however they are still just giving her directions to follow., go left, go right.. Which she says is an improvement and they are no longer saying nasty things. Patient remains convinced that she received Haldol Decanoate at [facility]; however she accepts the [facility] providers report to this technical report writer that she did not receive it and agrees to get a now. Collateral: 1.[employer] Instructor discussed case with patient's sister Griselda: pt doing well on regimen (clozapine, invega sustenna, Haldol Dec +prn) until this past august when she got dx with MS and was hospitalized during which time Invega held and that and other psych meds accidentally not restarted (or delayed...). AH returned and since then, patients sister has been trying to get proper med regimen restarted (at one pt there was problem with clozapine rems). Reviewed list of meds and will change accordingly (increasing mag-oxide to 500mg which is her outpt dose and helped reduce need for clozapine) 2.[employer] Instructor discussed case with psychiatric PA at [facility] who reports that pt was NOT given Haldol Dec or any other long acting med while there. She did increase her Clozapine to 175mg at 2pm and 275mg at 5pm. 12/22 remains with troubling AH, negative symptoms; continue treatment plan 12/26 pt reports that AH remain the same, no less intensity. However, but is much brighter, smiling at times, says she feels ok and has been out of her room attending groups...She agrees that this behavior may signify improvement at least in her mood, if not her ability to ignore voices. -continue current tx regimen -will consider increasing clozapine 6/ more thought blocking today; AH remain quite debilitating and patient did not attend any groups today, unable to concentrate on very much due to internal preoccupation. 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 -patient is a candidate for ECT if medication management does not resolve issue as she has refractory psychotic illness and negative symptoms 12/28 1st time patient said voices are little better, talking a little less; continue current treatment plan 12/29 mild improvements, patient showered, AH remains a little less talkative overall but still quite problematic, evidenced by her continued isolation, significant psychomotor retardation, speech latency; discussed speech latency and patient said she is just very distracted by the voices. Discussed medications and she agreed to go up on Clozaril. 12/30 Patient feeling extra tired this morning which she agrees is likely from last night's increased Clozaril. Not much has changed, voices remain quite problematic though less over the past couple days. She agrees to continue at this current new dose and see how things go. Will get labs 01/03 voices got a little worse this afternoon, telling her to keep the door open, which is reminiscent of AH prior to admission that proved controlling and hard for her to dismiss. Discussed case with her sister Griselda who is also healthcare proxy and present on the unit, as well as patient; discussed risks/side effects of medication regimen and all agreed to go up on Clozaril for now -though she has improved some, she is far from baseline, remains impaired and vulnerable to quickly decompensated further and taking direction from AH; possibly because LA eyes are coming due 01/04 AH has intensified somewhat. Patient is coming due for long-acting injectables which may be contributing to recently worsening AH. Patient due for Haldol Decanoate 100 mg which she received today 01/04 Tomorrow patient due for Invega Sustenna 234 mg 01/04 AH has intensified somewhat. Patient is coming due for long-acting injectables which may be contributing to recently worsening AH. Patient due for Haldol Decanoate 100 mg which she received today 01/04 Tomorrow patient due for Invega Sustenna 234 mg 01/05 Voices a little less; received Invega sustenna 234mg 01/06 well dressed again; in groups more and a little more outward EKG obtained and Qtc wnl 01/07 presents better (dressed) and says AH a little better, however they are more directive and she thinks they are real, though was open to reality testing 01/08 same presentation; continue tx plan 01/09 patient says voices have become a little quieter and she is overall feeling more calm. She remains significantly internally preoccupied with speech latency. Will continue to monitor. 01/10 continue tx plan; considering increasing Clozapine further given little improvement since last increase. Could instead increase Haldol however, this is increases risks of EPS 01/11 Patient up early today, before breakfast, the 1st time since this admission she has not slept until lunch time. Patient does think she is feeling better and although AH remain, she says she has been able to ignore them. She still feels far from her regular self but overall thinks things are headed in the right direction. -Patient asked for Clozaril to be increased thinking it is probably necessary. [employer] Instructor Ambivalent since it is already higher than her home dose and she is a little bit tremulous; but further, she seems to be doing better, attending groups, speech is less latent and she is more naturally expressive. [employer] Instructor will give it 1 more day and if symptoms do not further improve will increase Clozaril 01/12 Patient continues to feel that AH is better than on admission but still quite problematic; discussed medication regimen and fact that patient has bilateral hand tremor which is likely a medication side effect. Because of this she agrees with technical report writer's hesitation for increasing Clozaril for now; she is hoping that over the next few days things will get better but otherwise agrees to increase Clozaril further. -if no further improvement over next few days will increase Clozaril another 12.5mg -ordered labs/clozapine level -monitor tremor and signs for clozapine toxicity (none others thus far) 01/13 continue tx. PLAN: CV Q 15 minute checks Clonazepam 1mg qhs . Clozaril 125 mg 14:00 Continue Clozaril 325 mg q.h.s.; increased on 01/03 (used to be on 250mg at home; at [facility] increased 275) Received Haldol Decanoate 100 mg on 01/04 (last received 12/21) given every q.2 weeks Magnesium oxide 500 mg Q 17:00; for treatment for psychotic symptoms Haldol 5 mg b.i.d. p.r.n. Continue Haldol 10 mg b.i.d. for now given patient is behind on Haldol and suffering from AH; plan will be to taper and eventually DC ReceivedInvega Sustenna 234 mg on 01/05 Q30 days- last dose administered 12/06/23 Thyroid 60 mg daily Omeprazole [address] 240mg BID for MS involve guardian in treatment discharge planning with team 01/14 no change to clozaril dose due to pts sleepiness; continue monitor side effects; encourage fluids 01/15 no change to tx plan Reason for continued inpatient stay Substantial Risk for: inability to function Time Spent With Patient Time: Total time managing care of this patient today ____ minutes.
[2024-01-16] MEDS: clonazePAM 1 MG TABLET PO ×2 (18:23→20:30)
[2024-01-16 20:00] VITALS: BP 106/56; PULSE 71; RESP 16; TEMP 36.1; O2SAT 100
[2024-01-16] MEDS: Magnesium Oxide 400 MG TABLET 500 MG PO (20:30)
[2024-01-17 08:00] VITALS: BP 105/57; PULSE 91; RESP 18; TEMP 36.4; O2SAT 95
--- NOTE | 2024-01-17 09:42 | P.PNPSI_ITS ---
Subjective Subjective Date of Service: 01/17/24 Reason For Visit: SCHIZOPHRENIA, SI Interim History: met with patient; discussed with team; reviewed chart Patient reports she is feeling a little better and that auditory hallucinations are a little bit less though they remain and her intermittently problematic. Of note however she is speaking a little more spontaneously with less thought blocking. She agrees she has not as distracted as before. Given that patient has a history of catatonia and she has appeared a little catatonic, she agrees to trial of Ativan doses to see if it helps however initially dose did not seem to make much difference. Mental Status Exam Mental Status Exam Narrative: Pt is alert and oriented; behavior is cooperative, friendly, a little more engaged; patient is not in distress; dressed in hospital attire and neatly groomed; mood is described as a little better and affect congruent, a little more expressive, and less blunted; eye contact appropriate and a little more naturally expressive with less of a blank stare; Speech with thought blocking continued latency but less so and more spontaneous; still psychomotor retardation present but seems to be less; thought process is goal directed and seems organized; Thought content is on tx for AH; denies delusional thinking and none expressed; no SI/no HI. +AH Patients insight and judgment though remains impaired but improving Diagnostics Vital Signs (24Hr): Vital Signs - 24 hr 01/16/24 20:00 Temperature 97.0 F Pulse Rate 71 Respiratory Rate 16 Blood Pressure 106/56 L Pulse Oximetry 100 Oxygen Delivery Method Room Air BMI result Body Mass Index 31.4 Labs 01/16/24 11:32 Labs: Laboratory Results - last 48 hr 01/16/24 01/16/24 11:32 11:34 Absolute Neuts (auto) 3.4 Sodium 145 Potassium 3.9 Chloride 107 Carbon Dioxide 25 Anion Gap 17 BUN 15 Creatinine 0.72 Estim Creat Clear Calc 112.2 Estimated GFR > 60 Random Glucose 126 H Calcium 9.8 Magnesium 1.7 Total Bilirubin 0.3 Direct Bilirubin 0.1 AST 17 ALT 26 Alkaline Phosphatase 84 Ammonia 35 Total Protein 6.4 L Albumin 4.3 Medications Medications Current Medications Al Hydroxide/Mg Hydroxide (Magnesium Hydrox/Alum Hydrox 30 Ml Oral.Susp) 30 ml PO Q6H PRN PRN Reason: Heartburn/Nausea Last Admin: 01/12/24 03:33 Dose: 30 ml Albuterol Sulfate (Albuterol Sulfate 90 Mcg 8 Gm Inhaler) 2 puff INHALE RQ4H PRN PRN Reason: Shortness of Breath Last Admin: 01/10/24 22:13 Dose: 2 puff Benztropine Mesylate (Benztropine Mesylate 1 Mg Tablet) 1 mg PO BID [facility] Last Admin: 01/16/24 20:30 Dose: 1 mg Clonazepam (Clonazepam 0.5 Mg Tablet) 0.5 mg PO BID PRN PRN Reason: Anxiety Clonazepam (Clonazepam 1 Mg Tablet) 1 mg PO BEDTIME [facility] Last Admin: 01/16/24 20:30 Dose: 1 mg Clonazepam (Clonazepam 1 Mg Tablet) 1 mg PO DAILY@1700 [facility] Last Admin: 01/16/24 18:23 Dose: 1 mg Clozapine 100 mg/ Clozapine 25 (mg) 125 mg PO 1400 [facility] Last Admin: 01/16/24 15:14 Dose: 125 mg Clozapine 300 mg/ Clozapine 50 (mg) 350 mg PO BEDTIME [facility] Last Admin: 01/16/24 20:29 Dose: 350 mg Docusate Sodium (Docusate Sodium 100 Mg Capsule) 100 mg PO BID [facility] Last Admin: 01/16/24 20:30 Dose: 100 mg Fluticasone Propionate (Fluticasone Propionate Nasal 16 Gm [place]) 1 spray NOSTRIL-B DAILY PRN PRN Reason: nasal congestion Folic Acid (Folic Acid 1 Mg Tablet) 1 mg PO DAILY [facility] Last Admin: 01/16/24 08:48 Dose: 1 mg Haloperidol Decanoate (Haloperidol Decanoate 50 Mg/Ml Vial) 100 mg IM Q14D [facility] Last Admin: 01/05/24 13:48 Dose: 100 mg Haloperidol Lactate (Haloperidol Lactate Oral Conc 10 Mg/5 Ml Oral.Conc) 5 mg PO BID PRN PRN Reason: agitation Last Admin: 12/30/23 22:13 Dose: 5 mg Haloperidol Lactate (Haloperidol Lactate Oral Conc 10 Mg/5 Ml Oral.Conc) 10 mg PO BID [facility] Last Admin: 01/16/24 23:59 Dose: Not Given Hydroxyzine HCl (Hydroxyzine Hcl 25 Mg Tablet) 25 mg PO Q6H PRN PRN Reason: Anxiety Last Admin: 01/12/24 00:03 Dose: 25 mg Loratadine (Loratadine 10 Mg Tablet) 10 mg PO DAILY [facility] Last Admin: 06/23/24 08:48 Dose: 10 mg Magnesium Hydroxide (Milk Of Magnesia 30 Ml Oral.Susp) 30 ml PO DAILY PRN PRN Reason: Constipation Magnesium Oxide (Magnesium Oxide 400 Mg Tablet) 500 mg PO BEDTIME [facility] Last Admin: 01/16/24 20:30 Dose: 500 mg Multivitamins/Vitamin C (Multivitamin Tablet) 1 tab PO DAILY [facility] Last Admin: 01/16/24 08:47 Dose: 1 tab Patient Own ( (Tecfidera Dr 240 Mg)) 240 mg PO BID [facility] Last Admin: 01/16/24 20:29 Dose: 240 mg Omeprazole (Omeprazole 20 Mg Capsule.Dr) 20 mg PO DAILY@0630 [facility] Last Admin: 01/16/24 08:47 Dose: 20 mg Paliperidone Palmitate (Paliperidone Palmitate 234 Mg/1.5 Ml Syringe) 234 mg IM Q30D [facility] Last Admin: 01/06/24 13:54 Dose: 234 mg Polyethylene Glycol (Polyethylene Glycol 3350 17 Gm Powd.Pack) 17 gm PO DAILY PRN PRN Reason: ongoing Constipation Propranolol HCl (Propranolol Hcl 10 Mg Tablet) 10 mg PO BID [facility]; Protocol Last Admin: 01/16/24 20:30 Dose: 10 mg Thyroid (Thyroid,Pork 30 Mg Tablet) 60 mg PO DAILY@0600 [facility] Last Admin: 01/16/24 08:47 Dose: 60 mg Vitamin A/Vitamin D (A And D Ointment 56.7 Gm Tube) 1 appl TOPICAL BID [facility]; Protocol Last Admin: 01/16/24 21:36 Dose: Not Given Allergies Allergies Allergy/AdvReac Type Severity Reaction Status Date / Time Pork/Porcine Containing Allergy Unknown RASH Verified 12/28/23 14:54 Products [PORK/PORCINE CONTAINING PRODUCTS] ALPHA LIPOIC ACID Allergy Unknown Uncoded 10/17/23 02:24 JIG GRINDER-3 THYROID TOXICITY Allergy Unknown Uncoded 10/17/23 02:24 Assessment & Plan Assessment & Plan (1) Schizoaffective disorder: Qualifiers: Schizoaffective disorder type: depressive Qualified Code(s): F25.1 - Schizoaffective disorder, depressive type Status: Acute Code(s): F25.9 - Schizoaffective disorder, unspecified (2) PTSD (post-traumatic stress disorder): Status: Acute Code(s): F43.10 - Post-traumatic stress disorder, unspecified (3) Multiple sclerosis: Status: Acute Code(s): G35 - Multiple sclerosis (4) Mild persistent asthma: Status: Acute Code(s): J45.30 - Mild persistent asthma, uncomplicated Plan 38-year-old female, history of schizoaffective disorder, direct admission from [facility], where patient had presented with worsening auditory hallucinations and SI. Patient is resident at [facility] for around 10 years. Patient was recently discharged from [facility] where she was admitted on 12/07. She has had several recent admissions to [facility] she was admitted to [facility] inpatient on 10/17/2023 and then again on 11/07/2023. Pt has a [facility] and [facility] order in place, with some information available in the chart, but details around actual medications appears to be missing. Patient states that she received her Haldol Decanoate injection 6 days ago while in [facility]. patient reports today hearing voices telling her to go right to go left. Pt stares blankly at times; appears to be internally preoccupied. She is difficult to engage in interview; she appears anxious. denies SI or HI This production underwriter spoke to Griselda NAQVI, patient's guardian: Her concerns are to try to help Anjali get back to baseline she had 2 years stability while at the [facility]. She reports that there have been problems with medication, getting the correct medication on time due to a number of factors difficulty with the rims certification, difficulty with the [facility] not having the correct equipment when her injection was done was due, and after different hospitalizations medication list at discharge was not complete and the residential home was unable to correct her medication list. Griselda wonders if her sister could be placed in a long-term care nursing facility for more consistent care. Hospital course: 12/19/23 continue tx plan, hold haldol deconoate until can verify last given dose from [facility] or [facility], encourage PO intake 12/20/23 cont tx 12/20 pt reports continued incessant AH, however they are only saying things like go straight...go left...go right and no longer saying mean, provoking things. Pt asked for higher Haldol dose saying she was supposed to have it available but it was only started yesterday. She says that until about a month ago, she was doing quite well, but then her medications got changed/missed and since then she's decompensated with AH. She's not sure why her medications were changed. To her recollection she recieved Haldol Dec when she was at [facility] about a week ago. -Pt gave permission to call sister/HCP and gave Griselda's phone number. 12/21 Patient continues to report auditory hallucinations however they are still just giving her directions to follow., go left, go right.. Which she says is an improvement and they are no longer saying nasty things. Patient remains convinced that she received Haldol Decanoate at [facility]; however she accepts the [facility] providers report to this production underwriter that she did not receive it and agrees to get a now. Collateral: 1.Ice Rink Attendant discussed case with patient's sister Griselda: pt doing well on regimen (clozapine, invega sustenna, Haldol Dec +prn) until this past august when she got dx with MS and was hospitalized during which time Invega held and that and other psych meds accidentally not restarted (or delayed...). AH returned and since then, patients sister has been trying to get proper med regimen restarted (at one pt there was problem with clozapine rems). Reviewed list of meds and will change accordingly (increasing mag-oxide to 500mg which is her outpt dose and helped reduce need for clozapine) 2.Ice Rink Attendant [facility] reports that [facility] was NOT given Haldol Dec or any other long acting med while there. She did increase her Clozapine to 175mg at 2pm and 275mg at 5pm. 12/22 remains with troubling AH, negative symptoms; continue treatment plan 12/26 pt reports that AH remain the same, no less intensity. However, but is much brighter, smiling at times, says she feels ok and has been out of her room attending groups...She agrees that this behavior may signify improvement at least in her mood, if not her ability to ignore voices. -continue current tx regimen -will consider increasing clozapine 6/ more thought blocking today; AH remain quite debilitating and patient did not attend any groups today, unable to concentrate on very much due to internal preoccupation. Agrees to go up on Clozaril for now -patient reviewed her allergy list and says she has not allergic to trazodone nor she allergic to alpha lipoic acid, JIG GRINDER 3 thyroid; also that pork allergy does not cross over to medications. -patient is a candidate for ECT if medication management does not resolve issue as she has refractory psychotic illness and negative symptoms 12/28 1st time patient said voices are little better, talking a little less; continue current treatment plan 12/29 mild improvements, patient showered, AH remains a little less talkative overall but still quite problematic, evidenced by her continued isolation, significant psychomotor retardation, speech latency; discussed speech latency and patient said she is just very distracted by the voices. Discussed medications and she agreed to go up on Clozaril. 12/30 Patient feeling extra tired this morning which she agrees is likely from last night's increased Clozaril. Not much has changed, voices remain quite problematic though less over the past couple days. She agrees to continue at this current new dose and see how things go. Will get labs 01/03 voices got a little worse this afternoon, telling her to keep the door open, which is reminiscent of AH prior to admission that proved controlling and hard for her to dismiss. Discussed case with her sister Griselda who is also healthcare proxy and present on the unit, as well as patient; discussed risks/side effects of medication regimen and all agreed to go up on Clozaril for now -though she has improved some, she is far from baseline, remains impaired and vulnerable to quickly decompensated further and taking direction from AH; possibly because LA eyes are coming due 01/04 AH has intensified somewhat. Patient is coming due for long-acting injectables which may be contributing to recently worsening AH. Patient due for Haldol Decanoate 100 mg which she received today 01/04 Tomorrow patient due for Invega Sustenna 234 mg 01/04 AH has intensified somewhat. Patient is coming due for long-acting injectables which may be contributing to recently worsening AH. Patient due for Haldol Decanoate 100 mg which she received today 01/04 Tomorrow patient due for Invega Sustenna 234 mg 01/05 Voices a little less; received Invega sustenna 234mg 01/06 well dressed again; in groups more and a little more outward EKG obtained and Qtc wnl 01/07 presents better (dressed) and says AH a little better, however they are more directive and she thinks they are real, though was open to reality testing 01/08 same presentation; continue tx plan 01/09 patient says voices have become a little quieter and she is overall feeling more calm. She remains significantly internally preoccupied with speech latency. Will continue to monitor. 01/10 continue tx plan; considering increasing Clozapine further given little improvement since last increase. Could instead increase Haldol however, this is increases risks of EPS 01/11 Patient up early today, before breakfast, the 1st time since this admission she has not slept until lunch time. Patient does think she is feeling better and although AH remain, she says she has been able to ignore them. She still feels far from her regular self but overall thinks things are headed in the right direction. -Patient asked for Clozaril to be increased thinking it is probably necessary. Ice Rink Attendant Ambivalent since it is already higher than her home dose and she is a little bit tremulous; but further, she seems to be doing better, attending groups, speech is less latent and she is more naturally expressive. Ice Rink Attendant will give it 1 more day and if symptoms do not further improve will increase Clozaril 01/12 Patient continues to feel that AH is better than on admission but still quite problematic; discussed medication regimen and fact that patient has bilateral hand tremor which is likely a medication side effect. Because of this she agrees with production underwriter's hesitation for increasing Clozaril for now; she is hoping that over the next few days things will get better but otherwise agrees to increase Clozaril further. -if no further improvement over next few days will increase Clozaril another 12.5mg -ordered labs/clozapine level -monitor tremor and signs for clozapine toxicity (none others thus far) 01/13 continue tx. 01/14 no change to clozaril dose due to pts sleepiness; continue monitor side effects; encourage fluids 01/16 spontaneously with less thought blocking. She agrees she has not as distracted as before. Given that patient has a history of catatonia and she has appeared a little catatonic, she agrees to trial of Ativan doses to see if it helps however initially dose did not seem to make much difference. PLAN: CV Q 15 minute checks Clonazepam 1mg qhs . Clozaril 125 mg 14:00 Continue Clozaril 325 mg q.h.s.; increased on 01/03 (used to be on 250mg at home; at [facility] increased 275) Received Haldol Decanoate 100 mg on 01/04 (last received 12/21) given every q.2 weeks Magnesium oxide 500 mg Q 17:00; for treatment for psychotic symptoms Haldol 5 mg b.i.d. p.r.n. Continue Haldol 10 mg b.i.d. for now given patient is behind on Haldol and suffering from AH; plan will be to taper and eventually DC ReceivedInvega Sustenna 234 mg on 01/05 Q30 days- last dose administered 12/06/23 Thyroid 60 mg daily Omeprazole [address] 240mg BID for MS involve guardian in treatment discharge planning with team Patient educated on: diagnosis, medication risk/benefits and therapeutic strategies Informed Consent: understands Reason for continued inpatient stay Substantial Risk for: rapid decompensation Time Spent With Patient Time: Total time managing care of this patient today ____ minutes.
[2024-01-17] MEDS: Thyroid,Pork 30 MG TABLET 60 MG PO (10:45)
[2024-01-17] MEDS: Haloperidol Lactate Oral Conc 10 MG/5 ML ORAL.CONC PO ×2 (10:45→21:06)
[2024-01-17] MEDS: Loratadine 10 MG TABLET PO (10:46)
[2024-01-17] MEDS: Benztropine Mesylate 1 MG TABLET PO ×2 (10:46→21:07)
[2024-01-17] MEDS: Omeprazole 20 MG CAPSULE.DR PO (10:46)
[2024-01-17] MEDS: Multivitamin TABLET 1 TAB PO (10:46)
[2024-01-17] MEDS: Propranolol HCL 10 MG TABLET PO ×2 (10:46→21:07)
[2024-01-17] MEDS: Folic Acid 1 MG TABLET PO (10:46)
[2024-01-17] MEDS: Docusate Sodium 100 MG CAPSULE PO ×2 (10:46→21:07)
[2024-01-17] MEDS: cloZAPine 100 MG, cloZAPine 25 MG 125 MG PO (15:57)
[2024-01-17] MEDS: LORazepam 1 MG TABLET PO ×2 (15:57→17:00)
[2024-01-17 20:00] VITALS: BP 126/84; PULSE 113; RESP 16; TEMP 36.4; O2SAT 98
[2024-01-17] MEDS: Magnesium Oxide 400 MG TABLET 500 MG PO (21:07)
[2024-01-17] MEDS: clonazePAM 1 MG TABLET PO (21:07)
[2024-01-17] MEDS: Albuterol Sulfate 90 MCG 8 GM INHALER 2 PUFF INHALE (21:12)
[2024-01-18] MEDS: Omeprazole 20 MG CAPSULE.DR PO (05:55)
[2024-01-18] MEDS: Thyroid,Pork 30 MG TABLET 60 MG PO (05:55)
[2024-01-18 08:00] VITALS: BP 99/59; PULSE 98; RESP 18; TEMP 36.3; O2SAT 96
[2024-01-18] MEDS: Haloperidol Lactate Oral Conc 10 MG/5 ML ORAL.CONC PO ×2 (10:23→21:01)
[2024-01-18] MEDS: Folic Acid 1 MG TABLET PO (10:23)
[2024-01-18] MEDS: Loratadine 10 MG TABLET PO (10:23)
[2024-01-18] MEDS: Benztropine Mesylate 1 MG TABLET PO ×2 (10:24→21:02)
[2024-01-18] MEDS: Docusate Sodium 100 MG CAPSULE PO ×2 (10:24→21:02)
[2024-01-18] MEDS: Multivitamin TABLET 1 TAB PO (10:24)
[2024-01-18] MEDS: cloZAPine 100 MG, cloZAPine 25 MG 125 MG PO (14:53)
--- NOTE | 2024-01-18 17:53 | P.PNPSI_ITS ---
Subjective Subjective Date of Service: 01/18/24 Reason For Visit: SCHIZOPHRENIA, SI Interim History: Met with patient; discussed with team Continues to report she is very tired; that said she feels that the voices are getting easier to ignore Mental Status Exam Mental Status Exam Narrative: Pt is alert and oriented; behavior is cooperative, friendly, a little more engaged; patient is not in distress; dressed in hospital attire and neatly groomed; mood is described as a little better and affect congruent, a little more expressive, and less blunted; eye contact appropriate and a little more naturally expressive with less of a blank stare; Speech with thought blocking continued latency but less so and more spontaneous; still psychomotor retardation present but seems to be less; thought process is goal directed and seems organized; Thought content is on tx for AH; denies delusional thinking and none expressed; no SI/no HI. +AH Patients insight and judgment though remains impaired but improving Diagnostics Vital Signs (24Hr): Vital Signs - 24 hr 01/17/24 20:00 01/18/24 08:00 Temperature 97.6 F 97.4 F Pulse Rate 113 H 98 Respiratory Rate 16 18 Blood Pressure 126/84 99/59 L Pulse Oximetry 98 96 Oxygen Delivery Method Room Air Room Air BMI result Body Mass Index 31.4 Labs 01/16/24 11:32 Medications Medications Current Medications Al Hydroxide/Mg Hydroxide (Magnesium Hydrox/Alum Hydrox 30 Ml Oral.Susp) 30 ml PO Q6H PRN PRN Reason: Heartburn/Nausea Last Admin: 01/12/24 03:33 Dose: 30 ml Albuterol Sulfate (Albuterol Sulfate 90 Mcg 8 Gm Inhaler) 2 puff INHALE RQ4H PRN PRN Reason: Shortness of Breath Last Admin: 01/17/24 21:12 Dose: 2 puff Benztropine Mesylate (Benztropine Mesylate 1 Mg Tablet) 1 mg PO BID [facility] Last Admin: 01/18/24 10:24 Dose: 1 mg Clonazepam (Clonazepam 0.5 Mg Tablet) 0.5 mg PO BID PRN PRN Reason: Anxiety Clonazepam (Clonazepam 1 Mg Tablet) 1 mg PO BEDTIME LEW Last Admin: 01/17/24 21:07 Dose: 1 mg Clonazepam (Clonazepam 1 Mg Tablet) 1 mg PO DAILY@1700 [facility] Last Admin: 06/24/24 17:01 Dose: Not Given Clozapine 100 mg/ Clozapine 25 (mg) 125 mg PO 1400 [facility] Last Admin: 01/18/24 14:53 Dose: 125 mg Clozapine 300 mg/ Clozapine 50 (mg) 350 mg PO BEDTIME [facility] Last Admin: 01/17/24 21:07 Dose: 350 mg Docusate Sodium (Docusate Sodium 100 Mg Capsule) 100 mg PO BID [facility] Last Admin: 01/18/24 10:24 Dose: 100 mg Fluticasone Propionate (Fluticasone Propionate Nasal 16 Gm [place]) 1 spray NOSTRIL-B DAILY PRN PRN Reason: nasal congestion Folic Acid (Folic Acid 1 Mg Tablet) 1 mg PO DAILY [facility] Last Admin: 01/18/24 10:23 Dose: 1 mg Haloperidol Decanoate (Haloperidol Decanoate 50 Mg/Ml Vial) 100 mg IM Q14D [facility] Last Admin: 01/05/24 13:48 Dose: 100 mg Haloperidol Lactate (Haloperidol Lactate Oral Conc 10 Mg/5 Ml Oral.Conc) 5 mg PO BID PRN PRN Reason: agitation Last Admin: 12/30/23 22:13 Dose: 5 mg Haloperidol Lactate (Haloperidol Lactate Oral Conc 10 Mg/5 Ml Oral.Conc) 10 mg PO BID [facility] Last Admin: 01/18/24 10:23 Dose: 10 mg Hydroxyzine HCl (Hydroxyzine Hcl 25 Mg Tablet) 25 mg PO Q6H PRN PRN Reason: Anxiety Last Admin: 01/12/24 00:03 Dose: 25 mg Loratadine (Loratadine 10 Mg Tablet) 10 mg PO DAILY [facility] Last Admin: 01/18/24 10:23 Dose: 10 mg Magnesium Hydroxide (Milk Of Magnesia 30 Ml Oral.Susp) 30 ml PO DAILY PRN PRN Reason: Constipation Magnesium Oxide (Magnesium Oxide 400 Mg Tablet) 500 mg PO BEDTIME [facility] Last Admin: 01/17/24 21:07 Dose: 500 mg Multivitamins/Vitamin C (Multivitamin Tablet) 1 tab PO DAILY [facility] Last Admin: 01/18/24 10:24 Dose: 1 tab Patient Own ( (Tecfidera Dr 240 Mg)) 240 mg PO BID [facility] Last Admin: 01/18/24 10:24 Dose: 240 mg Omeprazole (Omeprazole 20 Mg Capsule.Dr) 20 mg PO DAILY@0630 [facility] Last Admin: 01/18/24 05:55 Dose: 20 mg Paliperidone Palmitate (Paliperidone Palmitate 234 Mg/1.5 Ml Syringe) 234 mg IM Q30D [facility] Last Admin: 01/06/24 13:54 Dose: 234 mg Polyethylene Glycol (Polyethylene Glycol 3350 17 Gm Powd.Pack) 17 gm PO DAILY PRN PRN Reason: ongoing Constipation Propranolol HCl (Propranolol Hcl 10 Mg Tablet) 10 mg PO BID LEW; Protocol Last Admin: 01/18/24 10:28 Dose: Not Given Thyroid (Thyroid,Pork 30 Mg Tablet) 60 mg PO DAILY@0600 [facility] Last Admin: 01/18/24 05:55 Dose: 60 mg Vitamin A/Vitamin D (A And D Ointment 56.7 Gm Tube) 1 appl TOPICAL BID LEW; Protocol Last Admin: 01/18/24 10:24 Dose: Not Given Allergies Allergies Allergy/AdvReac Type Severity Reaction Status Date / Time Pork/Porcine Containing Allergy Unknown RASH Verified 12/28/23 14:54 Products [PORK/PORCINE CONTAINING PRODUCTS] ALPHA LIPOIC ACID Allergy Unknown Uncoded 10/17/23 02:24 CLINICAL APPEALS REVIEWER-3 THYROID TOXICITY Allergy Unknown Uncoded 10/17/23 02:24 Assessment & Plan Assessment & Plan (1) Schizoaffective disorder: Qualifiers: Schizoaffective disorder type: depressive Qualified Code(s): F25.1 - Schizoaffective disorder, depressive type Status: Acute Code(s): F25.9 - Schizoaffective disorder, unspecified (2) PTSD (post-traumatic stress disorder): Status: Acute Code(s): F43.10 - Post-traumatic stress disorder, unspecified (3) Multiple sclerosis: Status: Acute Code(s): G35 - Multiple sclerosis (4) Mild persistent asthma: Status: Acute Code(s): J45.30 - Mild persistent asthma, uncomplicated Plan 38-year-old female, history of schizoaffective disorder, direct admission from [facility], where patient had presented with worsening auditory hallucinations and SI. Patient is resident at [facility] for around 10 years. Patient was recently discharged from [facility] where she was admitted on 12/07. She has had several recent admissions to [facility] she was [place] [facility] [place] on 10/17/2023 and then again on 11/07/2023. Pt has a [facility] order in place, with some information available in the chart, but details around actual medications appears to be missing. Patient states that she received her Haldol Decanoate injection 6 days ago while in [facility]. patient reports today hearing voices telling her to go right to go left. Pt stares blankly at times; appears to be internally preoccupied. She is difficult to engage in interview; she appears anxious. denies SI or HI This bond writer spoke to Griseldayuliet NAQVI, patient's guardian: Her concerns are to try to help Anjali get back to baseline she had 2 years stability while at the skilled nursing. She reports that there have been problems with medication, getting the correct medication on time due to a number of factors difficulty with the rims certification, difficulty with the [facility] not having the correct equipment when her injection was done was due, and after different hospitalizations medication list at discharge was not complete and the residential home was unable to correct her medication list. Griselda wonders if her sister could be placed in a long-term care nursing facility for more consistent care. Hospital course: 12/19/23 continue tx plan, hold haldol deconoate until can verify last given dose from [facility] or [facility], encourage PO intake 12/20/23 cont tx 12/20 pt reports continued incessant AH, however they are only saying things like go straight...go left...go right and no longer saying mean, provoking things. Pt asked for higher Haldol dose saying she was supposed to have it available but it was only started yesterday. She says that until about a month ago, she was doing quite well, but then her medications got changed/missed and since then she's decompensated with AH. She's not sure why her medications were changed. To her recollection she recieved Haldol Dec when she was at [facility] about a week ago. -Pt gave permission to call sister/HCP and gave Griselda's phone number. 12/21 Patient continues to report auditory hallucinations however they are still just giving her directions to follow., go left, go right.. Which she says is an improvement and they are no longer saying nasty things. Patient remains convinced that she received Haldol Decanoate at [facility]; however she accepts the [facility] providers report to this bond writer that she did not receive it and agrees to get a now. Collateral: 1.Supervisor Grinding discussed case with patient's sister Griselda: pt doing well on regimen (clozapine, invega sustenna, Haldol Dec +prn) until this past august when she got dx with MS and was hospitalized during which time Invega held and that and other psych meds accidentally not restarted (or delayed...). AH returned and since then, patients sister has been trying to get proper med regimen restarted (at one pt there was problem with clozapine rems). Reviewed list of meds and will change accordingly (increasing mag-oxide to 500mg which is her outpt dose and helped reduce need for clozapine) 2.Supervisor Grinding discussed case with psychiatric PA at [facility] who reports that pt was NOT given Haldol Dec or any other long acting med while there. She did increase her Clozapine to 175mg at 2pm and 275mg at 5pm. 12/22 remains with troubling AH, negative symptoms; continue treatment plan 12/26 pt reports that AH remain the same, no less intensity. However, but is much brighter, smiling at times, says she feels ok and has been out of her room attending groups...She agrees that this behavior may signify improvement at least in her mood, if not her ability to ignore voices. -continue current tx regimen -will consider increasing clozapine 6/ more thought blocking today; AH remain quite debilitating and patient did not attend any groups today, unable to concentrate on very much due to internal preoccupation. Agrees to go up on Clozaril for now -patient reviewed her allergy list and says she has not allergic to trazodone nor she allergic to alpha lipoic acid, CLINICAL APPEALS REVIEWER 3 thyroid; also that pork allergy does not cross over to medications. -patient is a candidate for ECT if medication management does not resolve issue as she has refractory psychotic illness and negative symptoms 12/28 1st time patient said voices are little better, talking a little less; continue current treatment plan 12/29 mild improvements, patient showered, AH remains a little less talkative overall but still quite problematic, evidenced by her continued isolation, significant psychomotor retardation, speech latency; discussed speech latency and patient said she is just very distracted by the voices. Discussed medications and she agreed to go up on Clozaril. 6/7 Patient feeling extra tired this morning which she agrees is likely from last night's increased Clozaril. Not much has changed, voices remain quite problematic though less over the past couple days. She agrees to continue at this current new dose and see how things go. Will get labs 01/03 voices got a little worse this afternoon, telling her to keep the door open, which is reminiscent of AH prior to admission that proved controlling and hard for her to dismiss. Discussed case with her sister Griselda who is also healthcare proxy and present on the unit, as well as patient; discussed risks/side effects of medication regimen and all agreed to go up on Clozaril for now -though she has improved some, she is far from baseline, remains impaired and vulnerable to quickly decompensated further and taking direction from AH; possibly because LA eyes are coming due 01/04 AH has intensified somewhat. Patient is coming due for long-acting injectables which may be contributing to recently worsening AH. Patient due for Haldol Decanoate 100 mg which she received today 01/04 Tomorrow patient due for Invega Sustenna 234 mg 01/04 AH has intensified somewhat. Patient is coming due for long-acting injectables which may be contributing to recently worsening AH. Patient due for Haldol Decanoate 100 mg which she received today 01/04 Tomorrow patient due for Invega Sustenna 234 mg 01/05 Voices a little less; received Invega sustenna 234mg 01/06 well dressed again; in groups more and a little more outward EKG obtained and Qtc wnl 01/07 presents better (dressed) and says AH a little better, however they are more directive and she thinks they are real, though was open to reality testing 01/08 same presentation; continue tx plan 01/09 patient says voices have become a little quieter and she is overall feeling more calm. She remains significantly internally preoccupied with speech latency. Will continue to monitor. 01/10 continue tx plan; considering increasing Clozapine further given little improvement since last increase. Could instead increase Haldol however, this is increases risks of EPS 01/11 Patient up early today, before breakfast, the 1st time since this admission she has not slept until lunch time. Patient does think she is feeling better and although AH remain, she says she has been able to ignore them. She still feels far from her regular self but overall thinks things are headed in the right direction. -Patient asked for Clozaril to be increased thinking it is probably necessary. Supervisor Grinding Ambivalent since it is already higher than her home dose and she is a little bit tremulous; but further, she seems to be doing better, attending groups, speech is less latent and she is more naturally expressive. Supervisor Grinding will give it 1 more day and if symptoms do not further improve will increase Clozaril 01/12 Patient continues to feel that AH is better than on admission but still quite problematic; discussed medication regimen and fact that patient has bilateral hand tremor which is likely a medication side effect. Because of this she agrees with bond writer's hesitation for increasing Clozaril for now; she is hoping that over the next few days things will get better but otherwise agrees to increase Clozaril further. -if no further improvement over next few days will increase Clozaril another 12.5mg -ordered labs/clozapine level -monitor tremor and signs for clozapine toxicity (none others thus far) 01/13 continue tx. 01/14 no change to clozaril dose due to pts sleepiness; continue monitor side effects; encourage fluids 01/16 spontaneously with less thought blocking. She agrees she has not as distracted as before. Given that patient has a history of catatonia and she has appeared a little catatonic, she agrees to trial of Ativan doses to see if it helps however initially dose did not seem to make much difference. 01/17 continue treatment plan PLAN: CV Q 15 minute checks Clonazepam 1mg qhs . Clozaril 125 mg 14:00 Continue Clozaril 325 mg q.h.s.; increased on 01/03 (used to be on 250mg at home; at [facility] increased 275) Received Haldol Decanoate 100 mg on 01/04 (last received 12/21) given every q.2 weeks Magnesium oxide 500 mg Q 17:00; for treatment for psychotic symptoms Haldol 5 mg b.i.d. p.r.n. Continue Haldol 10 mg b.i.d. for now given patient is behind on Haldol and suffering from AH; plan will be to taper and eventually DC ReceivedInvega Sustenna 234 mg on 01/05 Q30 days- last dose administered 12/06/23 Thyroid 60 mg daily Omeprazole [address] 240mg BID for MS involve guardian in treatment discharge planning with team Patient educated on: diagnosis, medication risk/benefits and therapeutic strategies Informed Consent: understands Reason for continued inpatient stay Substantial Risk for: rapid decompensation Time Spent With Patient Time: Total time managing care of this patient today ____ minutes.
[2024-01-18] MEDS: clonazePAM 1 MG TABLET PO ×2 (18:57→21:02)
[2024-01-18 20:00] VITALS: BP 134/96; PULSE 143; RESP 18; TEMP 36.2; O2SAT 97
[2024-01-18] MEDS: Magnesium Oxide 400 MG TABLET 500 MG PO (21:02)
[2024-01-18] MEDS: Propranolol HCL 10 MG TABLET PO (21:02)
[2024-01-19] MEDS: Thyroid,Pork 30 MG TABLET 60 MG PO (06:20)
[2024-01-19] MEDS: Omeprazole 20 MG CAPSULE.DR PO (06:21)
[2024-01-19 08:00] VITALS: BP 106/57; PULSE 93; RESP 18; TEMP 36.3; O2SAT 96
[2024-01-19] MEDS: Loratadine 10 MG TABLET PO (10:04)
[2024-01-19] MEDS: Benztropine Mesylate 1 MG TABLET PO ×2 (10:04→21:33)
[2024-01-19] MEDS: Docusate Sodium 100 MG CAPSULE PO ×2 (10:04→21:33)
[2024-01-19] MEDS: Multivitamin TABLET 1 TAB PO (10:04)
[2024-01-19] MEDS: Folic Acid 1 MG TABLET PO (10:04)
[2024-01-19 10:05] VITALS: BP 106/57; PULSE 93
[2024-01-19] MEDS: Propranolol HCL 10 MG TABLET PO ×2 (10:05→21:32)
[2024-01-19] MEDS: Haloperidol Lactate Oral Conc 10 MG/5 ML ORAL.CONC PO ×2 (10:06→21:32)
[2024-01-19] MEDS: cloZAPine 100 MG, cloZAPine 25 MG 125 MG PO (14:25)
[2024-01-19] MEDS: Haloperidol Decanoate 50 MG/ML VIAL 100 MG IM (14:26)
[2024-01-19] MEDS: clonazePAM 1 MG TABLET PO ×2 (18:07→21:33)
[2024-01-19 20:00] VITALS: BP 111/61; PULSE 110; RESP 18; TEMP 36.5; O2SAT 98
[2024-01-19 21:32] VITALS: BP 111/61; PULSE 110
[2024-01-19] MEDS: Magnesium Oxide 400 MG TABLET 500 MG PO (21:32)
--- NOTE | 2024-01-19 22:33 | HO.PSYCHPN ---
Subjective Subjective Date of Service: 01/26/24 Reason For Visit: SCHIZOPHRENIA, SI Interim History: Met with patient; discussed with team Discussed that perhaps Haldol is what is making her excessively tired since the doses increased; patient reports increased hand tremors which are intermittently visible. Discussed changing medication of Haldol 2 starting in the afternoon instead of the morning time to help mitigate daytime tiredness, to which she agrees. Although patient has side effects, she does not want Haldol lowered as she feels voices are getting a little better. Mental Status Exam Mental Status Exam Narrative: Pt is alert and oriented; behavior is cooperative, friendly, a little more engaged; patient is not in distress; dressed in hospital attire and neatly groomed; mood is described as a little better and affect congruent, a little more expressive, and less blunted; eye contact appropriate and a little more naturally expressive with less of a blank stare; Speech with thought blocking continued latency but less so and more spontaneous; today much psychomotor retardation present; thought process is goal directed and seems organized; Thought content is on tx for AH; denies delusional thinking and none expressed; no SI/no HI. +AH Patients insight and judgment though remains impaired but improving Diagnostics Vital Signs (24Hr): Vital Signs - 24 hr 01/19/24 08:00 01/19/24 10:05 01/19/24 20:00 Temperature 97.3 F 97.7 F Pulse Rate 93 93 110 H Respiratory Rate 18 18 Blood Pressure 106/57 L 106/57 L 111/61 Pulse Oximetry 96 98 Oxygen Delivery Method Room Air Room Air 01/19/24 21:32 Temperature Pulse Rate 110 H Respiratory Rate Blood Pressure 111/61 Pulse Oximetry Oxygen Delivery Method BMI result Body Mass Index 31.4 Labs 01/16/24 11:32 Medications Medications Current Medications Al Hydroxide/Mg Hydroxide (Magnesium Hydrox/Alum Hydrox 30 Ml Oral.Susp) 30 ml PO Q6H PRN PRN Reason: Heartburn/Nausea Last Admin: 01/12/24 03:33 Dose: 30 ml Albuterol Sulfate (Albuterol Sulfate 90 Mcg 8 Gm Inhaler) 2 puff INHALE RQ4H PRN PRN Reason: Shortness of Breath Last Admin: 01/17/24 21:12 Dose: 2 puff Benztropine Mesylate (Benztropine Mesylate 1 Mg Tablet) 1 mg PO BID LEW Last Admin: 01/19/24 21:33 Dose: 1 mg Clonazepam (Clonazepam 0.5 Mg Tablet) 0.5 mg PO BID PRN PRN Reason: Anxiety Clonazepam (Clonazepam 1 Mg Tablet) 1 mg PO BEDTIME [facility] Last Admin: 01/19/24 21:33 Dose: 1 mg Clonazepam (Clonazepam 1 Mg Tablet) 1 mg PO DAILY@1700 [facility] Last Admin: 01/19/24 18:07 Dose: 1 mg Clozapine 100 mg/ Clozapine 25 (mg) 125 mg PO 1400 [facility] Last Admin: 01/19/24 14:25 Dose: 125 mg Clozapine 300 mg/ Clozapine 50 (mg) 350 mg PO BEDTIME [facility] Last Admin: 01/19/24 21:32 Dose: 350 mg Docusate Sodium (Docusate Sodium 100 Mg Capsule) 100 mg PO BID [facility] Last Admin: 01/19/24 21:33 Dose: 100 mg Fluticasone Propionate (Fluticasone Propionate Nasal 16 Gm [place]) 1 spray NOSTRIL-B DAILY PRN PRN Reason: nasal congestion Folic Acid (Folic Acid 1 Mg Tablet) 1 mg PO DAILY [facility] Last Admin: 01/19/24 10:04 Dose: 1 mg Haloperidol Decanoate (Haloperidol Decanoate 50 Mg/Ml Vial) 100 mg IM Q14D [facility] Last Admin: 01/19/24 14:26 Dose: 100 mg Haloperidol Lactate (Haloperidol Lactate Oral Conc 10 Mg/5 Ml Oral.Conc) 5 mg PO BID PRN PRN Reason: agitation Last Admin: 12/30/23 22:13 Dose: 5 mg Haloperidol Lactate (Haloperidol Lactate Oral Conc 10 Mg/5 Ml Oral.Conc) 10 mg PO BID [facility] Last Admin: 01/19/24 21:32 Dose: 10 mg Hydroxyzine HCl (Hydroxyzine Hcl 25 Mg Tablet) 25 mg PO Q6H PRN PRN Reason: Anxiety Last Admin: 01/12/24 00:03 Dose: 25 mg Loratadine (Loratadine 10 Mg Tablet) 10 mg PO DAILY [facility] Last Admin: 01/19/24 10:04 Dose: 10 mg Magnesium Hydroxide (Milk Of Magnesia 30 Ml Oral.Susp) 30 ml PO DAILY PRN PRN Reason: Constipation Magnesium Oxide (Magnesium Oxide 400 Mg Tablet) 500 mg PO BEDTIME [facility] Last Admin: 01/19/24 21:32 Dose: 500 mg Multivitamins/Vitamin C (Multivitamin Tablet) 1 tab PO DAILY [facility] Last Admin: 01/19/24 10:04 Dose: 1 tab Patient Own ( (Tecfidera Dr 240 Mg)) 240 mg PO BID [facility] Last Admin: 01/19/24 21:35 Dose: 240 mg Omeprazole (Omeprazole 20 Mg Capsule.Dr) 20 mg PO DAILY@0630 [facility] Last Admin: 01/19/24 06:21 Dose: 20 mg Paliperidone Palmitate (Paliperidone Palmitate 234 Mg/1.5 Ml Syringe) 234 mg IM Q30D [facility] Last Admin: 01/06/24 13:54 Dose: 234 mg Polyethylene Glycol (Polyethylene Glycol 3350 17 Gm Powd.Pack) 17 gm PO DAILY PRN PRN Reason: ongoing Constipation Propranolol HCl (Propranolol Hcl 10 Mg Tablet) 10 mg PO BID [facility]; Protocol Last Admin: 01/19/24 21:32 Dose: 10 mg Thyroid (Thyroid,Pork 30 Mg Tablet) 60 mg PO DAILY@0600 [facility] Last Admin: 01/19/24 06:20 Dose: 60 mg Vitamin A/Vitamin D (A And D Ointment 56.7 Gm Tube) 1 appl TOPICAL BID [facility]; Protocol Last Admin: 01/19/24 20:53 Dose: Not Given Allergies Allergies Allergy/AdvReac Type Severity Reaction Status Date / Time Pork/Porcine Containing Allergy Unknown RASH Verified 12/28/23 14:54 Products [PORK/PORCINE CONTAINING PRODUCTS] ALPHA LIPOIC ACID Allergy Unknown Uncoded 10/17/23 02:24 DIGITAL ASSISTANT-3 THYROID TOXICITY Allergy Unknown Uncoded 10/17/23 02:24 Assessment & Plan Assessment & Plan (1) Schizoaffective disorder: Qualifiers: Schizoaffective disorder type: depressive Qualified Code(s): F25.1 - Schizoaffective disorder, depressive type Status: Acute Code(s): F25.9 - Schizoaffective disorder, unspecified (2) PTSD (post-traumatic stress disorder): Status: Acute Code(s): F43.10 - Post-traumatic stress disorder, unspecified (3) Multiple sclerosis: Status: Acute Code(s): G35 - Multiple sclerosis (4) Mild persistent asthma: Status: Acute Code(s): J45.30 - Mild persistent asthma, uncomplicated Plan 38-year-old female, history of schizoaffective disorder, direct admission from [facility], where patient had presented with worsening auditory hallucinations and SI. Patient is resident at [facility] for around 10 years. Patient was recently discharged from [facility] where she was admitted on 12/07. She has had several recent admissions to [facility] she was admitted to [facility] inpatient on 10/17/2023 and then again on 11/07/2023. Pt has a guardian hospital and [facility] order in place, with some information available in the chart, but details around actual medications appears to be missing. Patient states that she received her Haldol Decanoate injection 6 days ago while in [facility]. patient reports today hearing voices telling her to go right to go left. Pt stares blankly at times; appears to be internally preoccupied. She is difficult to engage in interview; she appears anxious. denies SI or HI This leader writer spoke to Griselda RAMOSDEZ, patient's guardian: Her concerns are to try to help Anjali get back to baseline she had 2 [facility] stability [facility]. She reports that there have been problems with medication, getting the correct medication on time due to a number of factors difficulty with the rims certification, difficulty with the [facility] not having the correct equipment when her injection was done was due, and after different hospitalizations medication list at discharge was not complete and the residential home was unable to correct her medication list. Griselda wonders if her sister could be placed in a long-term care nursing facility for more consistent care. Hospital course: 12/19/23 continue tx plan, hold haldol deconoate until can verify last given dose from [facility] or [facility], encourage PO intake 12/20/23 cont tx 12/20 pt reports continued incessant AH, however they are only saying things like go straight...go left...go right and no longer saying mean, provoking things. Pt asked for higher Haldol dose saying she was supposed to have it available but it was only started yesterday. She says that until about a month ago, she was doing quite well, but then her medications got changed/missed and since then she's decompensated with AH. She's not sure why her medications were changed. To her recollection she recieved Haldol Dec when she was at [facility] about a week ago. -Pt gave permission to call sister/HCP and gave Griselda's phone number. 12/21 Patient continues to report auditory hallucinations however they are still just giving her directions to follow., go left, go right.. Which she says is an improvement and they are no longer saying nasty things. Patient remains convinced that she received Haldol Decanoate at [facility]; however she accepts the [facility] providers report to this leader writer that she did not receive it and agrees to get a now. Collateral: 1.Knotting Machine Operator discussed case with patient's sister Griselda: pt doing well on regimen (clozapine, invega sustenna, Haldol Dec +prn) until this past august when she got dx with MS and was hospitalized during which time Invega held and that and other psych meds accidentally not restarted (or delayed...). AH returned and since then, patients sister has been trying to get proper med regimen restarted (at one pt there was problem with clozapine rems). Reviewed list of meds and will change accordingly (increasing mag-oxide to 500mg which is her outpt dose and helped reduce need for clozapine) 2.Knotting Machine Operator discussed case [facility] who reports that pt was NOT given Haldol Dec or any other long acting med while there. She did increase her Clozapine to 175mg at 2pm and 275mg at 5pm. 12/22 remains with troubling AH, negative symptoms; continue treatment plan 12/26 pt reports that AH remain the same, no less intensity. However, but is much brighter, smiling at times, says she feels ok and has been out of her room attending groups...She agrees that this behavior may signify improvement at least in her mood, if not her ability to ignore voices. -continue current tx regimen -will consider increasing clozapine 6/4 more thought blocking today; AH remain quite debilitating and patient did not attend any groups today, unable to concentrate on very much due to internal preoccupation. Agrees to go up on Clozaril for now -patient reviewed her allergy list and says she has not allergic to trazodone nor she allergic to alpha lipoic acid, DIGITAL ASSISTANT 3 thyroid; also that pork allergy does not cross over to medications. -patient is a candidate for ECT if medication management does not resolve issue as she has refractory psychotic illness and negative symptoms 12/28 1st time patient said voices are little better, talking a little less; continue current treatment plan 12/29 mild improvements, patient showered, AH remains a little less talkative overall but still quite problematic, evidenced by her continued isolation, significant psychomotor retardation, speech latency; discussed speech latency and patient said she is just very distracted by the voices. Discussed medications and she agreed to go up on Clozaril. 12/30 Patient feeling extra tired this morning which she agrees is likely from last night's increased Clozaril. Not much has changed, voices remain quite problematic though less over the past couple days. She agrees to continue at this current new dose and see how things go. Will get labs 01/03 voices got a little worse this afternoon, telling her to keep the door open, which is reminiscent of AH prior to admission that proved controlling and hard for her to dismiss. Discussed case with her sister Griselda who is also healthcare proxy and present on the unit, as well as patient; discussed risks/side effects of medication regimen and all agreed to go up on Clozaril for now -though she has improved some, she is far from baseline, remains impaired and vulnerable to quickly decompensated further and taking direction from ; possibly because LA eyes are coming due 01/04 AH has intensified somewhat. Patient is coming due for long-acting injectables which may be contributing to recently worsening AH. Patient due for Haldol Decanoate 100 mg which she received today 01/04 Tomorrow patient due for Invega Sustenna 234 mg 01/04 AH has intensified somewhat. Patient is coming due for long-acting injectables which may be contributing to recently worsening AH. Patient due for Haldol Decanoate 100 mg which she received today 01/04 Tomorrow patient due for Invega Sustenna 234 mg 01/05 Voices a little less; received Invega sustenna 234mg 01/06 well dressed again; in groups more and a little more outward EKG obtained and Qtc wnl 01/07 presents better (dressed) and says AH a little better, however they are more directive and she thinks they are real, though was open to reality testing 01/08 same presentation; continue tx plan 01/09 patient says voices have become a little quieter and she is overall feeling more calm. She remains significantly internally preoccupied with speech latency. Will continue to monitor. 01/10 continue tx plan; considering increasing Clozapine further given little improvement since last increase. Could instead increase Haldol however, this is increases risks of EPS 01/11 Patient up early today, before breakfast, the 1st time since this admission she has not slept until lunch time. Patient does think she is feeling better and although AH remain, she says she has been able to ignore them. She still feels far from her regular self but overall thinks things are headed in the right direction. -Patient asked for Clozaril to be increased thinking it is probably necessary. Knotting Machine Operator Ambivalent since it is already higher than her home dose and she is a little bit tremulous; but further, she seems to be doing better, attending groups, speech is less latent and she is more naturally expressive. Knotting Machine Operator will give it 1 more day and if symptoms do not further improve will increase Clozaril 01/12 Patient continues to feel that AH is better than on admission but still quite problematic; discussed medication regimen and fact that patient has bilateral hand tremor which is likely a medication side effect. Because of this she agrees with leader writer's hesitation for increasing Clozaril for now; she is hoping that over the next few days things will get better but otherwise agrees to increase Clozaril further. -if no further improvement over next few days will increase Clozaril another 12.5mg -ordered labs/clozapine level -monitor tremor and signs for clozapine toxicity (none others thus far) 01/13 continue tx. 01/14 no change to clozaril dose due to pts sleepiness; continue monitor side effects; encourage fluids 01/16 spontaneously with less thought blocking. She agrees she has not as distracted as before. Given that patient has a history of catatonia and she has appeared a little catatonic, she agrees to trial of Ativan doses to see if it helps however initially dose did not seem to make much difference. 01/18 Discussed that perhaps Haldol is what is making her excessively tired since the doses increased; patient reports increased hand tremors which are intermittently visible. Discussed changing medication of Haldol 2 starting in the afternoon instead of the morning time to help mitigate daytime tiredness, to which she agrees. Although patient has side effects, she does not want Haldol lowered as she feels voices are getting a little better. -seems to take 2 steps forward and 1 step back; today more speech latency and thought blocking than previously. Continues to have significant negative symptoms and psychomotor retardation PLAN: CV Q 15 minute checks Clonazepam 1mg qhs . Clozaril 125 mg 14:00 Continue Clozaril 325 mg q.h.s.; increased on 01/03 (used to be on 250mg at home; at [facility] increased 275) Received Haldol Decanoate 100 mg on 01/04 (last received 12/21) given every q.2 weeks Magnesium oxide 500 mg Q 17:00; for treatment for psychotic symptoms Haldol 5 mg b.i.d. p.r.n. Continue Haldol 10 mg b.i.d. for now given patient is behind on Haldol and suffering from AH; plan will be to taper and eventually DC ReceivedInvega Sustenna 234 mg on 01/05 Q30 days- last dose administered 12/06/23 Thyroid 60 mg daily Omeprazole [address] 240mg BID for MS involve guardian in treatment discharge planning with team Patient educated on: diagnosis, medication risk/benefits and therapeutic strategies Informed Consent: understands Reason for continued inpatient stay Substantial Risk for: inability to function and rapid decompensation Time Spent With Patient Time: Total time managing care of this patient today ____ minutes.
[2024-01-20] MEDS: Thyroid,Pork 30 MG TABLET 60 MG PO (06:22)
[2024-01-20] MEDS: Omeprazole 20 MG CAPSULE.DR PO (06:22)
[2024-01-20 08:16] VITALS: BP 107/67; PULSE 100; RESP 16; TEMP 36.3; O2SAT 95
[2024-01-20 08:57] LABS: Clozapine (Clozaril) 685 mcg/L; Norclozapine 292 mcg/L (25-400)
[2024-01-20 09:41] VITALS: BP 107/67; PULSE 100
[2024-01-20] MEDS: Folic Acid 1 MG TABLET PO (09:41)
[2024-01-20] MEDS: Propranolol HCL 10 MG TABLET PO ×2 (09:41→21:46)
[2024-01-20] MEDS: Docusate Sodium 100 MG CAPSULE PO ×2 (09:41→21:47)
[2024-01-20] MEDS: Loratadine 10 MG TABLET PO (09:41)
[2024-01-20] MEDS: Haloperidol Lactate Oral Conc 10 MG/5 ML ORAL.CONC PO ×2 (09:41→21:48)
[2024-01-20] MEDS: Benztropine Mesylate 1 MG TABLET PO ×2 (09:41→21:47)
[2024-01-20] MEDS: Multivitamin TABLET 1 TAB PO (09:41)
--- NOTE | 2024-01-20 13:19 | P.PNPSI_ITS ---
Subjective Subjective Date of Service: 01/20/24 Reason For Visit: SCHIZOPHRENIA, SI Interim History: Met with patient; discussed with team Patient with same presentation, bilateral hand tremor, significant negative symptoms and psychomotor retardation. Still very tired. Later in the day keno writer / runner found patient kneeling on the ground brain; discussed with patient and auditory hallucinations tell her to pray. She finds it very hard to resist their direction but says she will not be on the ground much longer. Mental Status Exam Mental Status Exam Narrative: Pt is alert and oriented; behavior is cooperative, friendly, a little more engaged; patient is not in distress; dressed in hospital attire and neatly groomed; mood is described as a little better and affect congruent, a little more expressive, and less blunted; eye contact appropriate and a little more naturally expressive with less of a blank stare; Speech with thought blocking continued latency but less so and more spontaneous; today much psychomotor retardation present; thought process is goal directed and seems organized; Thought content is on tx for AH; denies delusional thinking and none expressed; no SI/no HI. +AH Patients insight and judgment though remains impaired but improving Diagnostics Vital Signs (24Hr): Vital Signs - 24 hr 01/19/24 20:00 01/19/24 21:32 01/20/24 08:16 Temperature 97.7 F 97.3 F Pulse Rate 110 H 110 H 100 Respiratory Rate 18 16 Blood Pressure 111/61 111/61 107/67 Pulse Oximetry 98 95 Oxygen Delivery Method Room Air Room Air 01/20/24 09:41 Temperature Pulse Rate 100 Respiratory Rate Blood Pressure 107/67 Pulse Oximetry Oxygen Delivery Method BMI result Body Mass Index 31.4 Labs 01/16/24 11:32 Labs: Laboratory Results - last 48 hr 01/16/24 11:32 Clozapine 685 Norclozapine 292 Medications Medications Current Medications Al Hydroxide/Mg Hydroxide (Magnesium Hydrox/Alum Hydrox 30 Ml Oral.Susp) 30 ml PO Q6H PRN PRN Reason: Heartburn/Nausea Last Admin: 01/12/24 03:33 Dose: 30 ml Albuterol Sulfate (Albuterol Sulfate 90 Mcg 8 Gm Inhaler) 2 puff INHALE RQ4H PRN PRN Reason: Shortness of Breath Last Admin: 01/17/24 21:12 Dose: 2 puff Benztropine Mesylate (Benztropine Mesylate 1 Mg Tablet) 1 mg PO BID [facility] Last Admin: 01/20/24 09:41 Dose: 1 mg Clonazepam (Clonazepam 0.5 Mg Tablet) 0.5 mg PO BID PRN PRN Reason: Anxiety Clonazepam (Clonazepam 1 Mg Tablet) 1 mg PO BEDTIME [facility] Last Admin: 01/19/24 21:33 Dose: 1 mg Clonazepam (Clonazepam 1 Mg Tablet) 1 mg PO DAILY@1700 [facility] Last Admin: 01/19/24 18:07 Dose: 1 mg Clozapine 100 mg/ Clozapine 25 (mg) 125 mg PO 1400 [facility] Last Admin: 01/19/24 14:25 Dose: 125 mg Clozapine 300 mg/ Clozapine 50 (mg) 350 mg PO BEDTIME [facility] Last Admin: 01/19/24 21:32 Dose: 350 mg Docusate Sodium (Docusate Sodium 100 Mg Capsule) 100 mg PO BID [facility] Last Admin: 01/20/24 09:41 Dose: 100 mg Fluticasone Propionate (Fluticasone Propionate Nasal 16 Gm [place]) 1 spray NOSTRIL-B DAILY PRN PRN Reason: nasal congestion Folic Acid (Folic Acid 1 Mg Tablet) 1 mg PO DAILY [facility] Last Admin: 01/20/24 09:41 Dose: 1 mg Haloperidol Decanoate (Haloperidol Decanoate 50 Mg/Ml Vial) 100 mg IM Q14D [facility] Last Admin: 01/19/24 14:26 Dose: 100 mg Haloperidol Lactate (Haloperidol Lactate Oral Conc 10 Mg/5 Ml Oral.Conc) 5 mg PO BID PRN PRN Reason: agitation Last Admin: 12/30/23 22:13 Dose: 5 mg Haloperidol Lactate (Haloperidol Lactate Oral Conc 10 Mg/5 Ml Oral.Conc) 10 mg PO BID [facility] Stop: 01/20/24 21:00 Last Admin: 01/20/24 09:41 Dose: 10 mg Haloperidol Lactate (Haloperidol Lactate Oral Conc 10 Mg/5 Ml Oral.Conc) 10 mg PO BID@1400,2100 [facility] Hydroxyzine HCl (Hydroxyzine Hcl 25 Mg Tablet) 25 mg PO Q6H PRN PRN Reason: Anxiety Last Admin: 01/12/24 00:03 Dose: 25 mg Loratadine (Loratadine 10 Mg Tablet) 10 mg PO DAILY [facility] Last Admin: 01/20/24 09:41 Dose: 10 mg Magnesium Hydroxide (Milk Of Magnesia 30 Ml Oral.Susp) 30 ml PO DAILY PRN PRN Reason: Constipation Magnesium Oxide (Magnesium Oxide 400 Mg Tablet) 500 mg PO BEDTIME [facility] Last Admin: 01/19/24 21:32 Dose: 500 mg Multivitamins/Vitamin C (Multivitamin Tablet) 1 tab PO DAILY [facility] Last Admin: 01/20/24 09:41 Dose: 1 tab Patient Own ( (Tecfidera Dr 240 Mg)) 240 mg PO BID [facility] Last Admin: 01/20/24 09:42 Dose: 240 mg Omeprazole (Omeprazole 20 Mg Capsule.Dr) 20 mg PO DAILY@0630 [facility] Last Admin: 01/20/24 06:22 Dose: 20 mg Paliperidone Palmitate (Paliperidone Palmitate 234 Mg/1.5 Ml Syringe) 234 mg IM Q30D [facility] Last Admin: 01/06/24 13:54 Dose: 234 mg Polyethylene Glycol (Polyethylene Glycol 3350 17 Gm Powd.Pack) 17 gm PO DAILY PRN PRN Reason: ongoing Constipation Propranolol HCl (Propranolol Hcl 10 Mg Tablet) 10 mg PO BID [facility]; Protocol Last Admin: 01/20/24 09:41 Dose: 10 mg Thyroid (Thyroid,Pork 30 Mg Tablet) 60 mg PO DAILY@0600 [facility] Last Admin: 01/20/24 06:22 Dose: 60 mg Vitamin A/Vitamin D (A And D Ointment 56.7 Gm Tube) 1 appl TOPICAL BID [facility]; Protocol Last Admin: 01/20/24 10:37 Dose: Not Given Allergies Allergies Allergy/AdvReac Type Severity Reaction Status Date / Time Pork/Porcine Containing Allergy Unknown RASH Verified 12/28/23 14:54 Products [PORK/PORCINE CONTAINING PRODUCTS] ALPHA LIPOIC ACID Allergy Unknown Uncoded 10/17/23 02:24 [employer]-3 THYROID TOXICITY Allergy Unknown Uncoded 10/17/23 02:24 Assessment & Plan Assessment & Plan (1) Schizoaffective disorder: Qualifiers: Schizoaffective disorder type: depressive Qualified Code(s): F25.1 - Schizoaffective disorder, depressive type Status: Acute Code(s): F25.9 - Schizoaffective disorder, unspecified (2) PTSD (post-traumatic stress disorder): Status: Acute Code(s): F43.10 - Post-traumatic stress disorder, unspecified (3) Multiple sclerosis: Status: Acute Code(s): G35 - Multiple sclerosis (4) Mild persistent asthma: Status: Acute Code(s): J45.30 - Mild persistent asthma, uncomplicated Plan 38-year-old female, history of schizoaffective disorder, direct admission from [facility], where patient had presented with worsening auditory hallucinations and SI. Patient is resident at [facility] for around 10 years. Patient was recently discharged from [facility] where she was admitted on 12/07. She has had several recent admissions to [facility] she was [place] [facility] [place] on 10/[facility]/2023 and then again on 11/07/2023. Pt has a [facility] [place] [facility], with some information available in the chart, but details around actual medications appears to be missing. Patient states that she received her Haldol Decanoate injection 6 days ago while in [facility]. patient reports today hearing voices telling her to go right to go left. Pt stares blankly at times; appears to be internally preoccupied. She is difficult to engage in interview; she appears anxious. denies SI or HI This keno writer / runner spoke to Griselda DONYA, patient's guardian: Her concerns are to try to help Anjali get back to baseline she had 2 years stability while at the [facility]. She reports that there have been problems with medication, getting the correct medication on time due to a number of factors difficulty with the rims certification, difficulty with the [facility] not having the correct equipment when her injection was done was due, and after different hospitalizations medication list at discharge was not complete and the residential home was unable to correct her medication list. Griselda wonders if her sister could be placed in a long-term care nursing facility for more consistent care. Hospital course: 12/19/23 continue tx plan, hold haldol deconoate until can verify last given dose from [facility] or [facility], encourage PO intake 12/20/23 cont tx 12/20 pt reports continued incessant AH, however they are only saying things like go straight...go left...go right and no longer saying mean, provoking things. Pt asked for higher Haldol dose saying she was supposed to have it available but it was only started yesterday. She says that until about a month ago, she was doing quite well, but then her medications got changed/missed and since then she's decompensated with AH. She's not sure why her medications were changed. To her recollection she recieved Haldol Dec when she was at [facility] about a week ago. -Pt gave permission to call sister/HCP and gave Griselda's phone number. 12/21 Patient continues to report auditory hallucinations however they are still just giving her directions to follow., go left, go right.. Which she says is an improvement and they are no longer saying nasty things. Patient remains convinced that she received Haldol Decanoate at [facility]; however she accepts the [facility] providers report to this keno writer / runner that she did not receive it and agrees to get a now. Collateral: 1.Picture Frame Maker discussed case with patient's sister Griselda: pt doing well on regimen (clozapine, invega sustenna, Haldol Dec +prn) until this past august when she got dx with MS and was hospitalized during which time Invega held and that and other psych meds accidentally not restarted (or delayed...). AH returned and since then, patients sister has been trying to get proper med regimen restarted (at one pt there was problem with clozapine rems). Reviewed list of meds and will change accordingly (increasing mag-oxide to 500mg which is her outpt dose and helped reduce need for clozapine) 2.Picture Frame Maker [facility] that pt was NOT given Haldol Dec or any other long acting med while there. She did increase her Clozapine to 175mg at 2pm and 275mg at 5pm. 12/22 remains with troubling AH, negative symptoms; continue treatment plan / pt reports that AH remain the same, no less intensity. However, but is much brighter, smiling at times, says she feels ok and has been out of her room attending groups...She agrees that this behavior may signify improvement at least in her mood, if not her ability to ignore voices. -continue current tx regimen -will consider increasing clozapine 6/ more thought blocking today; AH remain quite debilitating and patient did not attend any groups today, unable to concentrate on very much due to internal preoccupation. Agrees to go up on Clozaril for now -patient reviewed her allergy list and says she has not allergic to trazodone nor she allergic to alpha lipoic acid, [employer] 3 thyroid; also that pork allergy does not cross over to medications. -patient is a candidate for ECT if medication management does not resolve issue as she has refractory psychotic illness and negative symptoms 12/28 1st time patient said voices are little better, talking a little less; continue current treatment plan 12/29 mild improvements, patient showered, AH remains a little less talkative overall but still quite problematic, evidenced by her continued isolation, significant psychomotor retardation, speech latency; discussed speech latency and patient said she is just very distracted by the voices. Discussed medications and she agreed to go up on Clozaril. 12/30 Patient feeling extra tired this morning which she agrees is likely from last night's increased Clozaril. Not much has changed, voices remain quite problematic though less over the past couple days. She agrees to continue at this current new dose and see how things go. Will get labs 01/03 voices got a little worse this afternoon, telling her to keep the door open, which is reminiscent of AH prior to admission that proved controlling and hard for her to dismiss. Discussed case with her sister Griselda who is also healthcare proxy and present on the unit, as well as patient; discussed risks/side effects of medication regimen and all agreed to go up on Clozaril for now -though she has improved some, she is far from baseline, remains impaired and vulnerable to quickly decompensated further and taking direction from AH; possibly because LA eyes are coming due 01/04 AH has intensified somewhat. Patient is coming due for long-acting injectables which may be contributing to recently worsening AH. Patient due for Haldol Decanoate 100 mg which she received today 01/04 Tomorrow patient due for Invega Sustenna 234 mg 01/04 AH has intensified somewhat. Patient is coming due for long-acting injectables which may be contributing to recently worsening AH. Patient due for Haldol Decanoate 100 mg which she received today 01/04 Tomorrow patient due for Invega Sustenna 234 mg 01/05 Voices a little less; received Invega sustenna 234mg 01/06 well dressed again; in groups more and a little more outward EKG obtained and Qtc wnl 01/07 presents better (dressed) and says AH a little better, however they are more directive and she thinks they are real, though was open to reality testing 01/08 same presentation; continue tx plan 01/09 patient says voices have become a little quieter and she is overall feeling more calm. She remains significantly internally preoccupied with speech latency. Will continue to monitor. 01/10 continue tx plan; considering increasing Clozapine further given little improvement since last increase. Could instead increase Haldol however, this is increases risks of EPS 01/11 Patient up early today, before breakfast, the 1st time since this admission she has not slept until lunch time. Patient does think she is feeling better and although AH remain, she says she has been able to ignore them. She still feels far from her regular self but overall thinks things are headed in the right direction. -Patient asked for Clozaril to be increased thinking it is probably necessary. Picture Frame Maker Ambivalent since it is already higher than her home dose and she is a little bit tremulous; but further, she seems to be doing better, attending groups, speech is less latent and she is more naturally expressive. Picture Frame Maker will give it 1 more day and if symptoms do not further improve will increase Clozaril 01/12 Patient continues to feel that AH is better than on admission but still quite problematic; discussed medication regimen and fact that patient has bilateral hand tremor which is likely a medication side effect. Because of this she agrees with keno writer / runner's hesitation for increasing Clozaril for now; she is hoping that over the next few days things will get better but otherwise agrees to increase Clozaril further. -if no further improvement over next few days will increase Clozaril another 12.5mg -ordered labs/clozapine level -monitor tremor and signs for clozapine toxicity (none others thus far) 01/13 continue tx. 01/14 no change to clozaril dose due to pts sleepiness; continue monitor side effects; encourage fluids 01/16 spontaneously with less thought blocking. She agrees she has not as distracted as before. Given that patient has a history of catatonia and she has appeared a little catatonic, she agrees to trial of Ativan doses to see if it helps however initially dose did not seem to make much difference. 01/18 Discussed that perhaps Haldol is what is making her excessively tired since the doses increased; patient reports increased hand tremors which are intermittently visible. Discussed changing medication of Haldol 2 starting in the afternoon instead of the morning time to help mitigate daytime tiredness, to which she agrees. Although patient has side effects, she does not want Haldol lowered as she feels voices are getting a little better. -seems to take 2 steps forward and 1 step back; today more speech latency and thought blocking than previously. Continues to have significant negative symptoms and psychomotor retardation 01/19 reviewed labs and unexpectedly, clozapine/norclozapine levels are lower although dose has remained consistent; will get advice PLAN: CV Q 15 minute checks Clonazepam 1mg qhs . Clozaril 125 mg 14:00 Continue Clozaril 325 mg q.h.s.; increased on 01/03 (used to be on 250mg at home; at [facility] increased 275) Received Haldol Decanoate 100 mg on 01/04 (last received 12/21) given every q.2 weeks Magnesium oxide 500 mg Q 17:00; for treatment for psychotic symptoms Haldol 5 mg b.i.d. p.r.n. Continue Haldol 10 mg b.i.d. for now given patient is behind on Haldol and suffering from AH; plan will be to taper and eventually DC ReceivedInvega Sustenna 234 mg on 01/05 Q30 days- last dose administered 12/06/23 Thyroid 60 mg daily Omeprazole [address] 240mg BID for MS involve guardian in treatment discharge planning with team Patient educated on: diagnosis and medication risk/benefits Informed Consent: understands and further education needed Reason for continued inpatient stay Substantial Risk for: inability to function and rapid decompensation Time Spent With Patient Time: Total time managing care of this patient today ____ minutes.
[2024-01-20] MEDS: cloZAPine 100 MG, cloZAPine 25 MG 125 MG PO (15:44)
[2024-01-20] MEDS: clonazePAM 1 MG TABLET PO ×2 (17:42→21:47)
[2024-01-20 20:00] VITALS: BP 138/95; PULSE 117; RESP 16; TEMP 36.4; O2SAT 98
[2024-01-20] MEDS: Magnesium Oxide 400 MG TABLET 500 MG PO (21:47)
[2024-01-21] MEDS: Magnesium Hydrox/Alum Hydrox 30 ML ORAL.SUSP PO ×2 (00:13→23:47)
--- NOTE | 2024-01-21 06:20 | PC.NURSE ---
Pt refusing AM meds, Not now, later and again with No water, later.
[2024-01-21 08:00] VITALS: BP 118/71; PULSE 88; RESP 16; TEMP 36.4; O2SAT 97
[2024-01-21] MEDS: Thyroid,Pork 30 MG TABLET 60 MG PO (08:47)
[2024-01-21] MEDS: Omeprazole 20 MG CAPSULE.DR PO (08:47)
[2024-01-21] MEDS: Benztropine Mesylate 1 MG TABLET PO ×2 (08:48→20:21)
[2024-01-21] MEDS: Multivitamin TABLET 1 TAB PO (08:48)
[2024-01-21] MEDS: Loratadine 10 MG TABLET PO (08:48)
[2024-01-21] MEDS: Propranolol HCL 10 MG TABLET PO ×2 (08:48→20:20)
[2024-01-21] MEDS: Docusate Sodium 100 MG CAPSULE PO ×2 (08:48→20:21)
[2024-01-21] MEDS: Folic Acid 1 MG TABLET PO (08:48)
[2024-01-21 09:54] LABS: Neut%MD 57.2 %
[2024-01-21] MEDS: modafiniL 100 MG TABLET PO (13:23)
[2024-01-21] MEDS: Haloperidol Lactate Oral Conc 10 MG/5 ML ORAL.CONC PO ×2 (13:23→20:19)
[2024-01-21] MEDS: cloZAPine 100 MG, cloZAPine 25 MG 125 MG PO (13:23)
[2024-01-21] MEDS: clonazePAM 1 MG TABLET PO ×2 (16:44→20:20)
--- NOTE | 2024-01-21 18:52 | P.PNPSI_ITS ---
Subjective Subjective Date of Service: 01/21/24 Reason For Visit: SCHIZOPHRENIA, SI Interim History: Met with patient; discussed with team; discussed with Dr. Louis Patient remains very tired even though the morning Haldol dose was moved to the afternoon, making it less likely that Haldol is what is been causing sedation. Discussed case with Dr. Louis and reviewed labs; he recommends trying patient on modafinil since this can be helpful for fatigue and also often used for fatigue secondary to multiple sclerosis, which may very well be a strong contributor to patient's constant tiredness. Discussed this with patient agrees with plan and will try modafinil Mental Status Exam Mental Status Exam Narrative: Pt is alert and oriented; behavior is cooperative, friendly, a little more engaged; patient is not in distress; dressed in hospital attire and neatly groomed; mood is described as a little better and affect congruent, a little more expressive, and less blunted; eye contact appropriate and a little more naturally expressive with less of a blank stare; Speech with thought blocking continued latency but less so and more spontaneous; today much psychomotor retardation present; thought process is goal directed and seems organized; Thought content is on tx for AH; denies delusional thinking and none expressed; no SI/no HI. +AH Patients insight and judgment though remains impaired but improving Diagnostics Vital Signs (24Hr): Vital Signs - 24 hr 01/20/24 20:00 01/21/24 08:00 Temperature 97.5 F 97.5 F Pulse Rate 117 H 88 Respiratory Rate 16 16 Blood Pressure 138/95 H 118/71 Pulse Oximetry 98 97 Oxygen Delivery Method Room Air Room Air BMI result Body Mass Index 31.4 Labs 01/16/24 11:32 Labs: Laboratory Results - last 48 hr 01/16/24 01/21/24 11:32 09:45 Absolute Neuts (auto) 4.0 Clozapine 685 Norclozapine 292 Medications Medications Current Medications Al Hydroxide/Mg Hydroxide (Magnesium Hydrox/Alum Hydrox 30 Ml Oral.Susp) 30 ml PO Q6H PRN PRN Reason: Heartburn/Nausea Last Admin: 01/21/24 00:13 Dose: 30 ml Albuterol Sulfate (Albuterol Sulfate 90 Mcg 8 Gm Inhaler) 2 puff INHALE RQ4H PRN PRN Reason: Shortness of Breath Last Admin: 01/17/24 21:12 Dose: 2 puff Benztropine Mesylate (Benztropine Mesylate 1 Mg Tablet) 1 mg PO BID [facility] Last Admin: 01/21/24 08:48 Dose: 1 mg Clonazepam (Clonazepam 0.5 Mg Tablet) 0.5 mg PO BID PRN PRN Reason: Anxiety Clonazepam (Clonazepam 1 Mg Tablet) 1 mg PO BEDTIME [facility] Last Admin: 01/20/24 21:47 Dose: 1 mg Clonazepam (Clonazepam 1 Mg Tablet) 1 mg PO DAILY@1700 [facility] Last Admin: 01/21/24 16:44 Dose: 1 mg Clozapine 100 mg/ Clozapine 25 (mg) 125 mg PO 1400 [facility] Last Admin: 01/21/24 13:23 Dose: 125 mg Clozapine 300 mg/ Clozapine 50 (mg) 350 mg PO BEDTIME [facility] Last Admin: 01/20/24 21:48 Dose: 350 mg Docusate Sodium (Docusate Sodium 100 Mg Capsule) 100 mg PO BID [facility] Last Admin: 01/21/24 08:48 Dose: 100 mg Fluticasone Propionate (Fluticasone Propionate Nasal 16 Gm [place]) 1 spray NOSTRIL-B DAILY PRN PRN Reason: nasal congestion Folic Acid (Folic Acid 1 Mg Tablet) 1 mg PO DAILY [facility] Last Admin: 01/21/24 08:48 Dose: 1 mg Haloperidol Decanoate (Haloperidol Decanoate 50 Mg/Ml Vial) 100 mg IM Q14D [facility] Last Admin: 01/19/24 14:26 Dose: 100 mg Haloperidol Lactate (Haloperidol Lactate Oral Conc 10 Mg/5 Ml Oral.Conc) 5 mg PO BID PRN PRN Reason: agitation Last Admin: 12/30/23 22:13 Dose: 5 mg Haloperidol Lactate (Haloperidol Lactate Oral Conc 10 Mg/5 Ml Oral.Conc) 10 mg PO BID@1400,2100 [facility] Last Admin: 01/21/24 13:23 Dose: 10 mg Hydroxyzine HCl (Hydroxyzine Hcl 25 Mg Tablet) 25 mg PO Q6H PRN PRN Reason: Anxiety Last Admin: 01/12/24 00:03 Dose: 25 mg Loratadine (Loratadine 10 Mg Tablet) 10 mg PO DAILY [facility] Last Admin: 01/21/24 08:48 Dose: 10 mg Magnesium Hydroxide (Milk Of Magnesia 30 Ml Oral.Susp) 30 ml PO DAILY PRN PRN Reason: Constipation Magnesium Oxide (Magnesium Oxide 400 Mg Tablet) 500 mg PO BEDTIME [facility] Last Admin: 01/20/24 21:47 Dose: 500 mg Modafinil (Modafinil 100 Mg Tablet) 100 mg PO DAILY [facility] Multivitamins/Vitamin C (Multivitamin Tablet) 1 tab PO DAILY [facility] Last Admin: 01/21/24 08:48 Dose: 1 tab Patient Own ( (Tecfidera Dr 240 Mg)) 240 mg PO BID [facility] Last Admin: 01/21/24 08:46 Dose: 240 mg Omeprazole (Omeprazole 20 Mg Capsule.Dr) 20 mg PO DAILY@0630 [facility] Last Admin: 01/21/24 08:47 Dose: 20 mg Paliperidone Palmitate (Paliperidone Palmitate 234 Mg/1.5 Ml Syringe) 234 mg IM Q30D [facility] Last Admin: 01/06/24 13:54 Dose: 234 mg Polyethylene Glycol (Polyethylene Glycol 3350 17 Gm Powd.Pack) 17 gm PO DAILY PRN PRN Reason: ongoing Constipation Propranolol HCl (Propranolol Hcl 10 Mg Tablet) 10 mg PO BID [facility]; Protocol Last Admin: 01/21/24 08:48 Dose: 10 mg Thyroid (Thyroid,Pork 30 Mg Tablet) 60 mg PO DAILY@0600 [facility] Last Admin: 01/21/24 08:47 Dose: 60 mg Vitamin A/Vitamin D (A And D Ointment 56.7 Gm Tube) 1 appl TOPICAL BID [facility]; Protocol Last Admin: 01/21/24 08:49 Dose: Not Given Allergies Allergies Allergy/AdvReac Type Severity Reaction Status Date / Time Pork/Porcine Containing Allergy Unknown RASH Verified 12/28/23 14:54 Products [PORK/PORCINE CONTAINING PRODUCTS] ALPHA LIPOIC ACID Allergy Unknown Uncoded 10/17/23 02:24 SHEAR SETTER-3 THYROID TOXICITY Allergy Unknown Uncoded 10/17/23 02:24 Assessment & Plan Assessment & Plan (1) Schizoaffective disorder: Qualifiers: Schizoaffective disorder type: depressive Qualified Code(s): F25.1 - Schizoaffective disorder, depressive type Status: Acute Code(s): F25.9 - Schizoaffective disorder, unspecified (2) PTSD (post-traumatic stress disorder): Status: Acute Code(s): F43.10 - Post-traumatic stress disorder, unspecified (3) Multiple sclerosis: Status: Acute Code(s): G35 - Multiple sclerosis (4) Mild persistent asthma: Status: Acute Code(s): J45.30 - Mild persistent asthma, uncomplicated Plan 38-year-old female, history of schizoaffective disorder, direct admission from [facility], where patient had presented with worsening auditory hallucinations and SI. Patient is resident at [facility] for around 10 years. Patient was recently discharged from [facility] where she was admitted on 12/07. She has had several recent admissions to [facility] she was admitted to [facility] inpatient on 10/17/2023 and then again on 11/07/2023. Pt has a [facility] and [facility] order in place, with some information available in the chart, but details around actual medications appears to be missing. Patient states that she received her Haldol Decanoate injection 6 days ago while in [facility]. patient reports today hearing voices telling her to go right to go left. Pt stares blankly at times; appears to be internally preoccupied. She is difficult to engage in interview; she appears anxious. denies SI or HI This senior underwriter spoke to Griselda RAMOSDEZ, patient's guardian: Her concerns are to try to help Anjali get back to baseline she had 2 years stability while at the [facility]. She reports that there have been problems with medication, getting the correct medication on time due to a number of factors difficulty with the rims certification, difficulty with the [facility] not having the correct equipment when her injection was done was due, and after different hospitalizations medication list at discharge was not complete and the residential home was unable to correct her medication list. Griselda wonders if her sister could be placed in a long-term care nursing facility for more consistent care. Hospital course: 12/19/23 continue tx plan, hold haldol deconoate until can verify last given dose from [facility] or [facility], encourage PO intake 12/20/23 cont tx 12/20 pt reports continued incessant AH, however they are only saying things like go straight...go left...go right and no longer saying mean, provoking things. Pt asked for higher Haldol dose saying she was supposed to have it available but it was only started yesterday. She says that until about a month ago, she was doing quite well, but then her medications got changed/missed and since then she's decompensated with AH. She's not sure why her medications were changed. To her recollection she recieved Haldol Dec when she was at [facility] about a week ago. -Pt gave permission to call sister/HCP and gave Griselda's phone number. 12/21 Patient continues to report auditory hallucinations however they are still just giving her directions to follow., go left, go right.. Which she says is an improvement and they are no longer saying nasty things. Patient remains convinced that she received Haldol Decanoate at [facility]; however she accepts the [facility] providers report to this senior underwriter that she did not receive it and agrees to get a now. Collateral: 1.Bituminous Paving Machine Operator discussed case with patient's sister Griselda: pt doing well on regimen (clozapine, invega sustenna, Haldol Dec +prn) until this past august when she got dx with MS and was hospitalized during which time Invega held and that and other psych meds accidentally not restarted (or delayed...). AH returned and since then, patients sister has been trying to get proper med regimen restarted (at one pt there was problem with clozapine rems). Reviewed list of meds and will change accordingly (increasing mag-oxide to 500mg which is her outpt dose and helped reduce need for clozapine) 2.Bituminous Paving Machine Operator [facility] that [facility] was NOT given Haldol Dec or any other long acting med while there. She did increase her Clozapine to 175mg at 2pm and 275mg at 5pm. 12/22 remains with troubling AH, negative symptoms; continue treatment plan 12/26 pt reports that AH remain the same, no less intensity. However, but is much brighter, smiling at times, says she feels ok and has been out of her room attending groups...She agrees that this behavior may signify improvement at least in her mood, if not her ability to ignore voices. -continue current tx regimen -will consider increasing clozapine 6/ more thought blocking today; AH remain quite debilitating and patient did not attend any groups today, unable to concentrate on very much due to internal preoccupation. Agrees to go up on Clozaril for now -patient reviewed her allergy list and says she has not allergic to trazodone nor she allergic to alpha lipoic acid, SHEAR SETTER 3 thyroid; also that pork allergy does not cross over to medications. -patient is a candidate for ECT if medication management does not resolve issue as she has refractory psychotic illness and negative symptoms 12/28 1st time patient said voices are little better, talking a little less; continue current treatment plan 12/29 mild improvements, patient showered, AH remains a little less talkative overall but still quite problematic, evidenced by her continued isolation, significant psychomotor retardation, speech latency; discussed speech latency and patient said she is just very distracted by the voices. Discussed medications and she agreed to go up on Clozaril. 12/30 Patient feeling extra tired this morning which she agrees is likely from last night's increased Clozaril. Not much has changed, voices remain quite problematic though less over the past couple days. She agrees to continue at this current new dose and see how things go. Will get labs 01/03 voices got a little worse this afternoon, telling her to keep the door open, which is reminiscent of AH prior to admission that proved controlling and hard for her to dismiss. Discussed case with her sister Griselda who is also healthcare proxy and present on the unit, as well as patient; discussed risks/side effects of medication regimen and all agreed to go up on Clozaril for now -though she has improved some, she is far from baseline, remains impaired and vulnerable to quickly decompensated further and taking direction from AH; possibly because LA eyes are coming due 01/04 AH has intensified somewhat. Patient is coming due for long-acting injectables which may be contributing to recently worsening AH. Patient due for Haldol Decanoate 100 mg which she received today 01/04 Tomorrow patient due for Invega Sustenna 234 mg 01/04 AH has intensified somewhat. Patient is coming due for long-acting injectables which may be contributing to recently worsening AH. Patient due for Haldol Decanoate 100 mg which she received today 01/04 Tomorrow patient due for Invega Sustenna 234 mg 01/05 Voices a little less; received Invega sustenna 234mg 01/06 well dressed again; in groups more and a little more outward EKG obtained and Qtc wnl 01/07 presents better (dressed) and says AH a little better, however they are more directive and she thinks they are real, though was open to reality testing 01/08 same presentation; continue tx plan 01/09 patient says voices have become a little quieter and she is overall feeling more calm. She remains significantly internally preoccupied with speech latency. Will continue to monitor. 01/10 continue tx plan; considering increasing Clozapine further given little improvement since last increase. Could instead increase Haldol however, this is increases risks of EPS 01/11 Patient up early today, before breakfast, the 1st time since this admission she has not slept until lunch time. Patient does think she is feeling better and although AH remain, she says she has been able to ignore them. She still feels far from her regular self but overall thinks things are headed in the right direction. -Patient asked for Clozaril to be increased thinking it is probably necessary. Bituminous Paving Machine Operator Ambivalent since it is already higher than her home dose and she is a little bit tremulous; but further, she seems to be doing better, attending groups, speech is less latent and she is more naturally expressive. Bituminous Paving Machine Operator will give it 1 more day and if symptoms do not further improve will increase Clozaril 01/12 Patient continues to feel that AH is better than on admission but still quite problematic; discussed medication regimen and fact that patient has bilateral hand tremor which is likely a medication side effect. Because of this she agrees with senior underwriter's hesitation for increasing Clozaril for now; she is hoping that over the next few days things will get better but otherwise agrees to increase Clozaril further. -if no further improvement over next few days will increase Clozaril another 12.5mg -ordered labs/clozapine level -monitor tremor and signs for clozapine toxicity (none others thus far) 01/13 continue tx. 01/14 no change to clozaril dose due to pts sleepiness; continue monitor side effects; encourage fluids 01/16 spontaneously with less thought blocking. She agrees she has not as distracted as before. Given that patient has a history of catatonia and she has appeared a little catatonic, she agrees to trial of Ativan doses to see if it helps however initially dose did not seem to make much difference. 01/18 Discussed that perhaps Haldol is what is making her excessively tired since the doses increased; patient reports increased hand tremors which are intermittently visible. Discussed changing medication of Haldol 2 starting in the afternoon instead of the morning time to help mitigate daytime tiredness, to which she agrees. Although patient has side effects, she does not want Haldol lowered as she feels voices are getting a little better. -seems to take 2 steps forward and 1 step back; today more speech latency and thought blocking than previously. Continues to have significant negative symptoms and psychomotor retardation 01/19 reviewed labs and unexpectedly, clozapine/norclozapine levels are lower although dose has remained consistent; will get advice 01/20 Patient remains very tired even though the morning Haldol dose was moved to the afternoon, making it less likely that Haldol is what is been causing sedation. Discussed case with Dr. Louis and reviewed labs; he recommends trying patient on modafinil since this can be helpful for fatigue and also often used for fatigue secondary to multiple sclerosis, which may very well be a strong contributor to patient's constant tiredness. Discussed this with patient agrees with plan and will try modafinil -ordered Haldol level at next blood draw; if symptoms do not remit further will consider lowering Haldol and increasing Clozaril (trying to treat while avoid further EPS side effects) PLAN: CV Q 15 minute checks START Modafinil 100mg daily for daytime sedation, secondary to both antipsychotic medication and MS fatigue; will consider increasing Clonazepam 1mg qhs . Clozaril 125 mg 14:00 Continue Clozaril 325 mg q.h.s.; increased on 01/03 (used to be on 250mg at home; at [facility] increased 275) Received Haldol Decanoate 100 mg on 01/04 (last received 12/21) given every q.2 weeks Magnesium oxide 500 mg Q 17:00; for treatment for psychotic symptoms Haldol 5 mg b.i.d. p.r.n. Continue Haldol 10 mg b.i.d. for now given patient is behind on Haldol and suffering from AH; plan will be to taper and eventually DC ReceivedInvega Sustenna 234 mg on 01/05 Q30 days- last dose administered 12/06/23 Thyroid 60 mg daily Omeprazole [address] 240mg BID for MS involve guardian in treatment discharge planning with team Patient educated on: diagnosis, medication risk/benefits and medical condition Informed Consent: understands, does not understand and further education needed Reason for continued inpatient stay Substantial Risk for: inability to function Time Spent With Patient Time: Total time managing care of this patient today ____ minutes.
[2024-01-21 20:00] VITALS: BP 129/86; PULSE 130; RESP 16; TEMP 36.8; O2SAT 99
[2024-01-21] MEDS: Milk of Magnesia 30 ML ORAL.SUSP PO (20:19)
[2024-01-21 20:20] VITALS: BP 139/89; PULSE 130
[2024-01-21] MEDS: Magnesium Oxide 400 MG TABLET 500 MG PO (20:21)
[2024-01-22] MEDS: hydrOXYzine HCL 25 MG TABLET PO (01:05)
[2024-01-22] MEDS: clonazePAM 0.5 MG TABLET PO (02:03)
[2024-01-22] MEDS: Omeprazole 20 MG CAPSULE.DR PO (06:48)
[2024-01-22] MEDS: Thyroid,Pork 30 MG TABLET 60 MG PO (06:48)
[2024-01-22 09:19] VITALS: BP 140/82; PULSE 101; RESP 16; TEMP 36.5; O2SAT 98
[2024-01-22] MEDS: modafiniL 100 MG TABLET PO (09:23)
[2024-01-22] MEDS: Propranolol HCL 10 MG TABLET PO ×2 (09:23→21:26)
[2024-01-22] MEDS: Benztropine Mesylate 1 MG TABLET PO ×2 (09:24→21:26)
[2024-01-22] MEDS: Loratadine 10 MG TABLET PO (09:24)
[2024-01-22] MEDS: Docusate Sodium 100 MG CAPSULE PO ×2 (09:24→21:25)
[2024-01-22] MEDS: Folic Acid 1 MG TABLET PO (09:24)
[2024-01-22] MEDS: Multivitamin TABLET 1 TAB PO (09:24)
--- NOTE | 2024-01-22 10:04 | HO.PSYCHPN ---
Subjective Subjective Date of Service: 01/22/24 Reason For Visit: SCHIZOPHRENIA, SI Interim History: Met with patient; discussed with team Reports feeling improved after a trial of Modafinil. Tolerating it well. No worsening of psychosis or behavior noted. She is cooperative. More alert and engaged. Compliant with medications. No SI/HI. Review of Systems Review of Systems Denies Yes all other systems are reviewed and are negative Mental Status Exam Mental Status Exam Narrative: Pt is alert and oriented; behavior is cooperative, friendly, a little more engaged; patient is not in distress; dressed in hospital attire and neatly groomed; mood is described as a little better and affect congruent, a little more expressive, and less blunted; eye contact appropriate and a little more naturally expressive with less of a blank stare; Speech with thought blocking continued latency but less so and more spontaneous; today much psychomotor retardation present; thought process is goal directed and seems organized; Thought content is on tx for AH; denies delusional thinking and none expressed; no SI/no HI. +AH Patients insight and judgment though remains impaired but improving Patient Appearance: Unkempt Patient Orientation: Person, Place, Time and Situation Level of Consciousness: Drowsy Patient Behavior: Passive Mood Description: Withdrawn Affect Description: Withdrawn Patient Cognition Impaired: No Ability to Follow Directions: Good Speech Pattern: Clear Memory Description: Intact Diagnostics Vital Signs (24Hr): Vital Signs - 24 hr 01/21/24 20:00 01/21/24 20:20 01/22/24 09:19 Temperature 98.3 F 97.7 F Pulse Rate 130 H 130 H 101 H Respiratory Rate 16 16 Blood Pressure 129/86 139/89 140/82 H Pulse Oximetry 99 98 Oxygen Delivery Method Room Air Room Air BMI result Body Mass Index 31.4 Labs 01/16/24 11:32 Labs: Laboratory Results - last 48 hr 01/21/24 09:45 Absolute Neuts (auto) 4.0 Medications Medications Current Medications Al Hydroxide/Mg Hydroxide (Magnesium Hydrox/Alum Hydrox 30 Ml Oral.Susp) 30 ml PO Q6H PRN PRN Reason: Heartburn/Nausea Last Admin: 01/21/24 23:47 Dose: 30 ml Albuterol Sulfate (Albuterol Sulfate 90 Mcg 8 Gm Inhaler) 2 puff INHALE RQ4H PRN PRN Reason: Shortness of Breath Last Admin: 01/17/24 21:12 Dose: 2 puff Benztropine Mesylate (Benztropine Mesylate 1 Mg Tablet) 1 mg PO BID [facility] Last Admin: 01/22/24 09:24 Dose: 1 mg Clonazepam (Clonazepam 0.5 Mg Tablet) 0.5 mg PO BID PRN PRN Reason: Anxiety Last Admin: 01/22/24 02:03 Dose: 0.5 mg Clonazepam (Clonazepam 1 Mg Tablet) 1 mg PO BEDTIME [facility] Last Admin: 01/21/24 20:20 Dose: 1 mg Clonazepam (Clonazepam 1 Mg Tablet) 1 mg PO DAILY@1700 [facility] Last Admin: 01/21/24 16:44 Dose: 1 mg Clozapine 100 mg/ Clozapine 25 (mg) 125 mg PO 1400 [facility] Last Admin: 01/21/24 13:23 Dose: 125 mg Clozapine 300 mg/ Clozapine 50 (mg) 350 mg PO BEDTIME [facility] Last Admin: 01/21/24 20:20 Dose: 350 mg Docusate Sodium (Docusate Sodium 100 Mg Capsule) 100 mg PO BID [facility] Last Admin: 01/22/24 09:24 Dose: 100 mg Fluticasone Propionate (Fluticasone Propionate Nasal 16 Gm [place]) 1 spray NOSTRIL-B DAILY PRN PRN Reason: nasal congestion Folic Acid (Folic Acid 1 Mg Tablet) 1 mg PO DAILY [facility] Last Admin: 01/22/24 09:24 Dose: 1 mg Haloperidol Decanoate (Haloperidol Decanoate 50 Mg/Ml Vial) 100 mg IM Q14D [facility] Last Admin: 01/19/24 14:26 Dose: 100 mg Haloperidol Lactate (Haloperidol Lactate Oral Conc 10 Mg/5 Ml Oral.Conc) 5 mg PO BID PRN PRN Reason: agitation Last Admin: 12/30/23 22:13 Dose: 5 mg Haloperidol Lactate (Haloperidol Lactate Oral Conc 10 Mg/5 Ml Oral.Conc) 10 mg PO BID@1400,2100 [facility] Last Admin: 01/21/24 20:19 Dose: 10 mg Hydroxyzine HCl (Hydroxyzine Hcl 25 Mg Tablet) 25 mg PO Q6H PRN PRN Reason: Anxiety Last Admin: 01/22/24 01:05 Dose: 25 mg Loratadine (Loratadine 10 Mg Tablet) 10 mg PO DAILY [facility] Last Admin: 01/22/24 09:24 Dose: 10 mg Magnesium Hydroxide (Milk Of Magnesia 30 Ml Oral.Susp) 30 ml PO DAILY PRN PRN Reason: Constipation Last Admin: 01/21/24 20:19 Dose: 30 ml Magnesium Oxide (Magnesium Oxide 400 Mg Tablet) 500 mg PO BEDTIME [facility] Last Admin: 01/21/24 20:21 Dose: 500 mg Modafinil (Modafinil 100 Mg Tablet) 100 mg PO DAILY [facility] Last Admin: 01/22/24 09:23 Dose: 100 mg Multivitamins/Vitamin C (Multivitamin Tablet) 1 tab PO DAILY [facility] Last Admin: 01/22/24 09:24 Dose: 1 tab Patient Own ( (Tecfidera Dr 240 Mg)) 240 mg PO BID [facility] Last Admin: 01/22/24 09:24 Dose: 240 mg Omeprazole (Omeprazole 20 Mg Capsule.Dr) 20 mg PO DAILY@0630 [facility] Last Admin: 01/22/24 06:48 Dose: 20 mg Paliperidone Palmitate (Paliperidone Palmitate 234 Mg/1.5 Ml Syringe) 234 mg IM Q30D [facility] Last Admin: 01/06/24 13:54 Dose: 234 mg Polyethylene Glycol (Polyethylene Glycol 3350 17 Gm Powd.Pack) 17 gm PO DAILY PRN PRN Reason: ongoing Constipation Propranolol HCl (Propranolol Hcl 10 Mg Tablet) 10 mg PO BID [facility]; Protocol Last Admin: 01/22/24 09:23 Dose: 10 mg Thyroid (Thyroid,Pork 30 Mg Tablet) 60 mg PO DAILY@0600 [facility] Last Admin: 01/22/24 06:48 Dose: 60 mg Vitamin A/Vitamin D (A And D Ointment 56.7 Gm Tube) 1 appl TOPICAL BID [facility]; Protocol Last Admin: 01/22/24 09:24 Dose: Not Given Allergies Allergies Allergy/AdvReac Type Severity Reaction Status Date / Time Pork/Porcine Containing Allergy Unknown RASH Verified 12/28/23 14:54 Products [PORK/PORCINE CONTAINING PRODUCTS] ALPHA LIPOIC ACID Allergy Unknown Uncoded 10/17/23 02:24 [employer]-3 THYROID TOXICITY Allergy Unknown Uncoded 10/17/23 02:24 Assessment & Plan Assessment & Plan (1) Schizoaffective disorder: Qualifiers: Schizoaffective disorder type: depressive Qualified Code(s): F25.1 - Schizoaffective disorder, depressive type Status: Acute Code(s): F25.9 - Schizoaffective disorder, unspecified (2) PTSD (post-traumatic stress disorder): Status: Acute Code(s): F43.10 - Post-traumatic stress disorder, unspecified (3) Multiple sclerosis: Status: Acute Code(s): G35 - Multiple sclerosis (4) Mild persistent asthma: Status: Acute Code(s): J45.30 - Mild persistent asthma, uncomplicated Plan 38-year-old female, history of schizoaffective disorder, direct admission from [facility], where patient had presented with worsening auditory hallucinations and SI. Patient is resident at [facility] for around 10 years. Patient was recently discharged from [facility] where she was admitted on 12/07. She has had several recent admissions to [facility] she was admitted to [facility] inpatient on 10/17/2023 and then again on 11/07/2023. Pt has a [facility] and [facility] order in place, with some information available in the chart, but details around actual medications appears to be missing. Patient states that she received her Haldol Decanoate injection 6 days ago while in [facility]. patient reports today hearing voices telling her to go right to go left. Pt stares blankly at times; appears to be internally preoccupied. She is difficult to engage in interview; she appears anxious. denies SI or HI This technical publications writer spoke to Griselda NAQVI, patient's guardian: Her concerns are to try to help Anjali get back to baseline she had 2 years stability while at the [facility]. She reports that there have been problems with medication, getting the correct medication on time due to a number of factors difficulty with the rims certification, difficulty with the [facility] not having the correct equipment when her injection was done was due, and after different hospitalizations medication list at discharge was not complete and the residential home was unable to correct her medication list. Griselda wonders if her sister could be placed in a long-term care nursing facility for more consistent care. Hospital course: 12/19/23 continue tx plan, hold haldol deconoate until can verify last given dose from [facility] or [facility], encourage PO intake 12/20/23 cont tx 12/20 pt reports continued incessant AH, however they are only saying things like go straight...go left...go right and no longer saying mean, provoking things. Pt asked for higher Haldol dose saying she was supposed to have it available but it was only started yesterday. She says that until about a month ago, she was doing quite well, but then her medications got changed/missed and since then she's decompensated with AH. She's not sure why her medications were changed. To her recollection she recieved Haldol Dec when she was at [facility] about a week ago. -Pt gave permission to call sister/HCP and gave Griselda's phone number. 12/21 Patient continues to report auditory hallucinations however they are still just giving her directions to follow., go left, go right.. Which she says is an improvement and they are no longer saying nasty things. Patient remains convinced that she received Haldol Decanoate at [facility]; however she accepts the [facility] providers report to this technical publications writer that she did not receive it and agrees to get a now. Collateral: 1.Express Manager discussed case with patient's sister Griselda: pt doing well on regimen (clozapine, invega sustenna, Haldol Dec +prn) until this past august when she got dx with MS and was hospitalized during which time Invega held and that and other psych meds accidentally not restarted (or delayed...). AH returned and since then, patients sister has been trying to get proper med regimen restarted (at one pt there was problem with clozapine rems). Reviewed list of meds and will change accordingly (increasing mag-oxide to 500mg which is her outpt dose and helped reduce need for clozapine) 2.Express Manager discussed case [facility] who reports that pt was NOT given Haldol Dec or any other long acting med while there. She did increase her Clozapine to 175mg at 2pm and 275mg at 5pm. 12/22 remains with troubling AH, negative symptoms; continue treatment plan 12/26 pt reports that AH remain the same, no less intensity. However, but is much brighter, smiling at times, says she feels ok and has been out of her room attending groups...She agrees that this behavior may signify improvement at least in her mood, if not her ability to ignore voices. -continue current tx regimen -will consider increasing clozapine 6/ more thought blocking today; AH remain quite debilitating and patient did not attend any groups today, unable to concentrate on very much due to internal preoccupation. Agrees to go up on Clozaril for now -patient reviewed her allergy list and says she has not allergic to trazodone nor she allergic to alpha lipoic acid, [employer] 3 thyroid; also that pork allergy does not cross over to medications. -patient is a candidate for ECT if medication management does not resolve issue as she has refractory psychotic illness and negative symptoms 12/28 1st time patient said voices are little better, talking a little less; continue current treatment plan 12/29 mild improvements, patient showered, AH remains a little less talkative overall but still quite problematic, evidenced by her continued isolation, significant psychomotor retardation, speech latency; discussed speech latency and patient said she is just very distracted by the voices. Discussed medications and she agreed to go up on Clozaril. 12/30 Patient feeling extra tired this morning which she agrees is likely from last night's increased Clozaril. Not much has changed, voices remain quite problematic though less over the past couple days. She agrees to continue at this current new dose and see how things go. Will get labs 01/03 voices got a little worse this afternoon, telling her to keep the door open, which is reminiscent of AH prior to admission that proved controlling and hard for her to dismiss. Discussed case with her sister Griselda who is also healthcare proxy and present on the unit, as well as patient; discussed risks/side effects of medication regimen and all agreed to go up on Clozaril for now -though she has improved some, she is far from baseline, remains impaired and vulnerable to quickly decompensated further and taking direction from AH; possibly because LA eyes are coming due 01/04 AH has intensified somewhat. Patient is coming due for long-acting injectables which may be contributing to recently worsening AH. Patient due for Haldol Decanoate 100 mg which she received today 01/04 Tomorrow patient due for Invega Sustenna 234 mg 01/04 AH has intensified somewhat. Patient is coming due for long-acting injectables which may be contributing to recently worsening AH. Patient due for Haldol Decanoate 100 mg which she received today 01/04 Tomorrow patient due for Invega Sustenna 234 mg 01/05 Voices a little less; received Invega sustenna 234mg 01/06 well dressed again; in groups more and a little more outward EKG obtained and Qtc wnl 01/07 presents better (dressed) and says AH a little better, however they are more directive and she thinks they are real, though was open to reality testing 01/08 same presentation; continue tx plan 01/09 patient says voices have become a little quieter and she is overall feeling more calm. She remains significantly internally preoccupied with speech latency. Will continue to monitor. 01/10 continue tx plan; considering increasing Clozapine further given little improvement since last increase. Could instead increase Haldol however, this is increases risks of EPS 01/11 Patient up early today, before breakfast, the 1st time since this admission she has not slept until lunch time. Patient does think she is feeling better and although AH remain, she says she has been able to ignore them. She still feels far from her regular self but overall thinks things are headed in the right direction. -Patient asked for Clozaril to be increased thinking it is probably necessary. Express Manager Ambivalent since it is already higher than her home dose and she is a little bit tremulous; but further, she seems to be doing better, attending groups, speech is less latent and she is more naturally expressive. Express Manager will give it 1 more day and if symptoms do not further improve will increase Clozaril 01/12 Patient continues to feel that AH is better than on admission but still quite problematic; discussed medication regimen and fact that patient has bilateral hand tremor which is likely a medication side effect. Because of this she agrees with technical publications writer's hesitation for increasing Clozaril for now; she is hoping that over the next few days things will get better but otherwise agrees to increase Clozaril further. -if no further improvement over next few days will increase Clozaril another 12.5mg -ordered labs/clozapine level -monitor tremor and signs for clozapine toxicity (none others thus far) 01/13 continue tx. 01/14 no change to clozaril dose due to pts sleepiness; continue monitor side effects; encourage fluids 01/16 spontaneously with less thought blocking. She agrees she has not as distracted as before. Given that patient has a history of catatonia and she has appeared a little catatonic, she agrees to trial of Ativan doses to see if it helps however initially dose did not seem to make much difference. 01/18 Discussed that perhaps Haldol is what is making her excessively tired since the doses increased; patient reports increased hand tremors which are intermittently visible. Discussed changing medication of Haldol 2 starting in the afternoon instead of the morning time to help mitigate daytime tiredness, to which she agrees. Although patient has side effects, she does not want Haldol lowered as she feels voices are getting a little better. -seems to take 2 steps forward and 1 step back; today more speech latency and thought blocking than previously. Continues to have significant negative symptoms and psychomotor retardation 01/19 reviewed labs and unexpectedly, clozapine/norclozapine levels are lower although dose has remained consistent; will get advice 01/20 Patient remains very tired even though the morning Haldol dose was moved to the afternoon, making it less likely that Haldol is what is been causing sedation. Discussed case with Dr. Louis and reviewed labs; he recommends trying patient on modafinil since this can be helpful for fatigue and also often used for fatigue secondary to multiple sclerosis, which may very well be a strong contributor to patient's constant tiredness. Discussed this with patient agrees with plan and will try modafinil -ordered Haldol level at next blood draw; if symptoms do not remit further will consider lowering Haldol and increasing Clozaril (trying to treat while avoid further EPS side effects) 01/21: continue current management and treatment plan. PLAN: CV Q 15 minute checks START Modafinil 100mg daily for daytime sedation, secondary to both antipsychotic medication and MS fatigue; will consider increasing Clonazepam 1mg qhs . Clozaril 125 mg 14:00 Continue Clozaril 325 mg q.h.s.; increased on 01/03 (used to be on 250mg at home; at [facility] increased 275) Received Haldol Decanoate 100 mg on 01/04 (last received 12/21) given every q.2 weeks Magnesium oxide 500 mg Q 17:00; for treatment for psychotic symptoms Haldol 5 mg b.i.d. p.r.n. Continue Haldol 10 mg b.i.d. for now given patient is behind on Haldol and suffering from AH; plan will be to taper and eventually DC ReceivedInvega Sustenna 234 mg on 01/05 Q30 days- last dose administered 12/06/23 Thyroid 60 mg daily Omeprazole [address] 240mg BID for MS involve guardian in treatment discharge planning with team Reason for continued inpatient stay Substantial Risk for: inability to function and rapid decompensation Time Spent With Patient Time: Total time managing care of this patient today ____ minutes.
[2024-01-22] MEDS: cloZAPine 100 MG, cloZAPine 25 MG 125 MG PO (13:38)
[2024-01-22] MEDS: Haloperidol Lactate Oral Conc 10 MG/5 ML ORAL.CONC PO ×2 (13:39→21:26)
[2024-01-22] MEDS: Albuterol Sulfate 90 MCG 8 GM INHALER 2 PUFF INHALE (16:14)
[2024-01-22 16:16] VITALS: BP 124/78; PULSE 118; RESP 18; TEMP 36.4; O2SAT 96
[2024-01-22] MEDS: clonazePAM 1 MG TABLET PO ×2 (16:29→21:26)
[2024-01-22 17:40] VITALS: PULSE 117; O2SAT 98
[2024-01-22 20:00] VITALS: BP 126/78; PULSE 126; RESP 16; TEMP 36.8; O2SAT 98
[2024-01-22] MEDS: Magnesium Oxide 400 MG TABLET 500 MG PO (21:26)
[2024-01-22] MEDS: Magnesium Hydrox/Alum Hydrox 30 ML ORAL.SUSP PO (21:35)
[2024-01-23] MEDS: Omeprazole 20 MG CAPSULE.DR PO (06:48)
[2024-01-23] MEDS: Thyroid,Pork 30 MG TABLET 60 MG PO (06:48)
[2024-01-23 08:00] VITALS: BP 83/48; PULSE 85; TEMP 36.3; O2SAT 96
[2024-01-23 08:30] VITALS: BP 89/53; PULSE 91
[2024-01-23 09:43] VITALS: BP 112/62; PULSE 97; RESP 16; TEMP 36.3; O2SAT 97
[2024-01-23] MEDS: Docusate Sodium 100 MG CAPSULE PO ×2 (09:45→21:01)
[2024-01-23] MEDS: Propranolol HCL 10 MG TABLET PO ×2 (09:45→21:00)
[2024-01-23] MEDS: Multivitamin TABLET 1 TAB PO (09:45)
[2024-01-23] MEDS: Folic Acid 1 MG TABLET PO (09:45)
[2024-01-23] MEDS: Benztropine Mesylate 1 MG TABLET PO ×2 (09:45→21:01)
[2024-01-23] MEDS: Loratadine 10 MG TABLET PO (09:45)
[2024-01-23] MEDS: modafiniL 100 MG TABLET PO (09:45)
[2024-01-23] MEDS: Milk of Magnesia 30 ML ORAL.SUSP PO (11:18)
[2024-01-23 11:19] VITALS: BP 128/75; PULSE 113
[2024-01-23] MEDS: Haloperidol Lactate Oral Conc 10 MG/5 ML ORAL.CONC PO ×2 (14:23→21:04)
[2024-01-23] MEDS: cloZAPine 100 MG, cloZAPine 25 MG 125 MG PO (14:23)
[2024-01-23] MEDS: clonazePAM 1 MG TABLET PO ×2 (16:22→21:01)
--- NOTE | 2024-01-23 17:14 | P.PNPSI_ITS ---
Subjective Subjective Date of Service: 01/23/24 Reason For Visit: SCHIZOPHRENIA, SI Interim History: Met with patient; discussed with team When this creative writer entered the room patient was on her knees preparing to pray. Overall more energetic with the introduction of Modafinil but continues to report tiredness and fatigue. Better as the day progresses. Tolerating Modafinil well. No evidence of worsening psychosis or behavior noted. She is cooperative. More alert and engaged. Compliant with medications. No SI/ HI. Low BP but asymptomatic and improved as day progresses. Review of Systems Review of Systems Denies Yes all other systems are reviewed and are negative Mental Status Exam Mental Status Exam Narrative: Pt is alert and oriented; behavior is cooperative, friendly, a little more engaged; patient is not in distress; dressed in hospital attire and neatly groomed; mood is described as a little better and affect congruent, a little more expressive, and less blunted; eye contact appropriate and a little more naturally expressive with less of a blank stare; Speech with thought blocking continued latency but less so and more spontaneous; today much psychomotor retardation present; thought process is goal directed and seems organized; Thought content is on tx for AH; denies delusional thinking and none expressed; no SI/no HI. +AH Patients insight and judgment though remains impaired but improving Patient Appearance: Unkempt Patient Orientation: Person, Place, Time and Situation Level of Consciousness: Drowsy Patient Behavior: Passive Mood Description: Withdrawn Affect Description: Withdrawn Patient Cognition Impaired: No Ability to Follow Directions: Good Speech Pattern: Clear Memory Description: Intact Diagnostics Vital Signs (24Hr): Vital Signs - 24 hr 01/22/24 17:40 01/22/24 20:00 01/23/24 08:00 Temperature 98.2 F 97.3 F Pulse Rate 117 H 126 H 85 Respiratory Rate 16 Blood Pressure 126/78 83/48 L Pulse Oximetry 98 98 96 Oxygen Delivery Method Room Air Room Air Room Air 01/23/24 08:30 01/23/24 09:43 01/23/24 11:19 Temperature 97.3 F Pulse Rate 91 97 113 H Respiratory Rate 16 Blood Pressure 89/53 L 112/62 128/75 Pulse Oximetry 97 Oxygen Delivery Method Room Air BMI result Body Mass Index 31.4 Labs 01/16/24 11:32 Medications Medications Current Medications Al Hydroxide/Mg Hydroxide (Magnesium Hydrox/Alum Hydrox 30 Ml Oral.Susp) 30 ml PO Q6H PRN PRN Reason: Heartburn/Nausea Last Admin: 01/22/24 21:35 Dose: 30 ml Albuterol Sulfate (Albuterol Sulfate 90 Mcg 8 Gm Inhaler) 2 puff INHALE RQ4H PRN PRN Reason: Shortness of Breath Last Admin: 01/22/24 16:14 Dose: 2 puff Benztropine Mesylate (Benztropine Mesylate 1 Mg Tablet) 1 mg PO BID [facility] Last Admin: 01/23/24 09:45 Dose: 1 mg Clonazepam (Clonazepam 0.5 Mg Tablet) 0.5 mg PO BID PRN PRN Reason: Anxiety Last Admin: 01/22/24 02:03 Dose: 0.5 mg Clonazepam (Clonazepam 1 Mg Tablet) 1 mg PO BEDTIME [facility] Last Admin: 01/22/24 21:26 Dose: 1 mg Clonazepam (Clonazepam 1 Mg Tablet) 1 mg PO DAILY@1700 [facility] Last Admin: 01/23/24 16:22 Dose: 1 mg Clozapine 100 mg/ Clozapine 25 (mg) 125 mg PO 1400 [facility] Last Admin: 01/23/24 14:23 Dose: 125 mg Clozapine 300 mg/ Clozapine 50 (mg) 350 mg PO BEDTIME [facility] Last Admin: 01/22/24 21:26 Dose: 350 mg Docusate Sodium (Docusate Sodium 100 Mg Capsule) 100 mg PO BID [facility] Last Admin: 01/23/24 09:45 Dose: 100 mg Fluticasone Propionate (Fluticasone Propionate Nasal 16 Gm Immaculata) 1 spray NOSTRIL-B DAILY PRN PRN Reason: nasal congestion Folic Acid (Folic Acid 1 Mg Tablet) 1 mg PO DAILY [facility] Last Admin: 01/23/24 09:45 Dose: 1 mg Haloperidol Decanoate (Haloperidol Decanoate 50 Mg/Ml Vial) 100 mg IM Q14D [facility] Last Admin: 01/19/24 14:26 Dose: 100 mg Haloperidol Lactate (Haloperidol Lactate Oral Conc 10 Mg/5 Ml Oral.Conc) 5 mg PO BID PRN PRN Reason: agitation Last Admin: 12/30/23 22:13 Dose: 5 mg Haloperidol Lactate (Haloperidol Lactate Oral Conc 10 Mg/5 Ml Oral.Conc) 10 mg PO BID@1400,2100 [facility] Last Admin: 01/23/24 14:23 Dose: 10 mg Hydroxyzine HCl (Hydroxyzine Hcl 25 Mg Tablet) 25 mg PO Q6H PRN PRN Reason: Anxiety Last Admin: 01/22/24 01:05 Dose: 25 mg Loratadine (Loratadine 10 Mg Tablet) 10 mg PO DAILY [facility] Last Admin: 01/23/24 09:45 Dose: 10 mg Magnesium Hydroxide (Milk Of Magnesia 30 Ml Oral.Susp) 30 ml PO DAILY PRN PRN Reason: Constipation Last Admin: 01/23/24 11:18 Dose: 30 ml Magnesium Oxide (Magnesium Oxide 400 Mg Tablet) 500 mg PO BEDTIME [facility] Last Admin: 01/22/24 21:26 Dose: 500 mg Modafinil (Modafinil 100 Mg Tablet) 100 mg PO DAILY [facility] Last Admin: 01/23/24 09:45 Dose: 100 mg Multivitamins/Vitamin C (Multivitamin Tablet) 1 tab PO DAILY [facility] Last Admin: 01/23/24 09:45 Dose: 1 tab Patient Own ( (Tecfidera Dr 240 Mg)) 240 mg PO BID [facility] Last Admin: 01/23/24 09:44 Dose: 240 mg Omeprazole (Omeprazole 20 Mg Capsule.Dr) 20 mg PO DAILY@0630 [facility] Last Admin: 01/23/24 06:48 Dose: 20 mg Paliperidone Palmitate (Paliperidone Palmitate 234 Mg/1.5 Ml Syringe) 234 mg IM Q30D [facility] Last Admin: 01/06/24 13:54 Dose: 234 mg Polyethylene Glycol (Polyethylene Glycol 3350 17 Gm Powd.Pack) 17 gm PO DAILY PRN PRN Reason: ongoing Constipation Propranolol HCl (Propranolol Hcl 10 Mg Tablet) 10 mg PO BID [facility]; Protocol Last Admin: 01/23/24 09:45 Dose: 10 mg Thyroid (Thyroid,Pork 30 Mg Tablet) 60 mg PO DAILY@0600 [facility] Last Admin: 01/23/24 06:48 Dose: 60 mg Vitamin A/Vitamin D (A And D Ointment 56.7 Gm Tube) 1 appl TOPICAL BID [facility]; Protocol Last Admin: 01/23/24 09:17 Dose: Not Given Allergies Allergies Allergy/AdvReac Type Severity Reaction Status Date / Time Pork/Porcine Containing Allergy Unknown RASH Verified 12/28/23 14:54 Products [PORK/PORCINE CONTAINING PRODUCTS] ALPHA LIPOIC ACID Allergy Unknown Uncoded 10/17/23 02:24 GRIDDLE ATTENDANT-3 THYROID TOXICITY Allergy Unknown Uncoded 10/17/23 02:24 Assessment & Plan Assessment & Plan (1) Schizoaffective disorder: Qualifiers: Schizoaffective disorder type: depressive Qualified Code(s): F25.1 - Schizoaffective disorder, depressive type Status: Acute Code(s): F25.9 - Schizoaffective disorder, unspecified (2) PTSD (post-traumatic stress disorder): Status: Acute Code(s): F43.10 - Post-traumatic stress disorder, unspecified (3) Multiple sclerosis: Status: Acute Code(s): G35 - Multiple sclerosis (4) Mild persistent asthma: Status: Acute Code(s): J45.30 - Mild persistent asthma, uncomplicated Plan 38-year-old female, history of schizoaffective disorder, direct admission from [facility], where patient had presented with worsening auditory hallucinations and SI. Patient is resident at [facility] for around 10 years. Patient was recently discharged from [facility] where she was admitted on 12/07. She has had several recent admissions to [facility] she was admitted to [facility] [place] on [place]17/2023 and then again on 11/07/2023. [facility], with some information available in the chart, but details around actual medications appears to be missing. Patient states that she received her Haldol Decanoate injection 6 days ago while in [facility]. patient reports today hearing voices telling her to go right to go left. Pt stares blankly at times; appears to be internally preoccupied. She is difficult to engage in interview; she appears anxious. denies SI or HI This creative writer spoke to Griselda NAQVI, patient's guardian: Her concerns are to try to help Anjali get back to baseline she had 2 years stability while at the [facility]. She reports that there have been problems with medication, getting the correct medication on time due to a number of factors difficulty with the rims certification, difficulty with the [facility] not having the correct equipment when her injection was done was due, and after different hospitalizations medication list at discharge was not complete and the residential home was unable to correct her medication list. Griselda wonders if her sister could be placed in a long-term care nursing facility for more consistent care. Hospital course: 12/19/23 continue tx plan, hold haldol deconoate until can verify last given dose from [facility] or [facility], encourage PO intake 12/20/23 cont tx 12/20 pt reports continued incessant AH, however they are only saying things like go straight...go left...go right and no longer saying mean, provoking things. Pt asked for higher Haldol dose saying she was supposed to have it available but it was only started yesterday. She says that until about a month ago, she was doing quite well, but then her medications got changed/missed and since then she's decompensated with AH. She's not sure why her medications were changed. To her recollection she recieved Haldol Dec when she was at [facility] about a week ago. -Pt gave permission to call sister/HCP and gave Griselda's phone number. 12/21 Patient continues to report auditory hallucinations however they are still just giving her directions to follow., go left, go right.. Which she says is an improvement and they are no longer saying nasty things. Patient remains convinced that she received Haldol Decanoate at [facility]; however she accepts the [facility] providers report to this creative writer that she did not receive it and agrees to get a now. Collateral: 1.Sales Advisor discussed case with patient's sister Griselda: pt doing well on regimen (clozapine, invega sustenna, Haldol Dec +prn) until this past august when she got dx with MS and was hospitalized during which time Invega held and that and other psych meds accidentally not restarted (or delayed...). AH returned and since then, patients sister has been trying to get proper med regimen restarted (at one pt there was problem with clozapine rems). Reviewed list of meds and will change accordingly (increasing mag-oxide to 500mg which is her outpt dose and helped reduce need for clozapine) 2.Sales Advisor [facility] that pt was NOT given Haldol Dec or any other long acting med while there. She did increase her Clozapine to 175mg at 2pm and 275mg at 5pm. 12/22 remains with troubling AH, negative symptoms; continue treatment plan 12/26 pt reports that AH remain the same, no less intensity. However, but is much brighter, smiling at times, says she feels ok and has been out of her room attending groups...She agrees that this behavior may signify improvement at least in her mood, if not her ability to ignore voices. -continue current tx regimen -will consider increasing clozapine 12/27 more thought blocking today; AH remain quite debilitating and patient did not attend any groups today, unable to concentrate on very much due to internal preoccupation. Agrees to go up on Clozaril for now -patient reviewed her allergy list and says she has not allergic to trazodone nor she allergic to alpha lipoic acid, GRIDDLE ATTENDANT 3 thyroid; also that pork allergy does not cross over to medications. -patient is a candidate for ECT if medication management does not resolve issue as she has refractory psychotic illness and negative symptoms 12/28 1st time patient said voices are little better, talking a little less; continue current treatment plan 12/29 mild improvements, patient showered, AH remains a little less talkative overall but still quite problematic, evidenced by her continued isolation, significant psychomotor retardation, speech latency; discussed speech latency and patient said she is just very distracted by the voices. Discussed medications and she agreed to go up on Clozaril. 12/30 Patient feeling extra tired this morning which she agrees is likely from last night's increased Clozaril. Not much has changed, voices remain quite problematic though less over the past couple days. She agrees to continue at this current new dose and see how things go. Will get labs 01/03 voices got a little worse this afternoon, telling her to keep the door open, which is reminiscent of AH prior to admission that proved controlling and hard for her to dismiss. Discussed case with her sister Griselda who is also healthcare proxy and present on the unit, as well as patient; discussed risks/side effects of medication regimen and all agreed to go up on Clozaril for now -though she has improved some, she is far from baseline, remains impaired and vulnerable to quickly decompensated further and taking direction from AH; possibly because LA eyes are coming due 01/04 AH has intensified somewhat. Patient is coming due for long-acting injectables which may be contributing to recently worsening AH. Patient due for Haldol Decanoate 100 mg which she received today 01/04 Tomorrow patient due for Invega Sustenna 234 mg 01/04 AH has intensified somewhat. Patient is coming due for long-acting injectables which may be contributing to recently worsening AH. Patient due for Haldol Decanoate 100 mg which she received today 01/04 Tomorrow patient due for Invega Sustenna 234 mg 01/05 Voices a little less; received Invega sustenna 234mg 01/06 well dressed again; in groups more and a little more outward EKG obtained and Qtc wnl 01/07 presents better (dressed) and says AH a little better, however they are more directive and she thinks they are real, though was open to reality testing 01/08 same presentation; continue tx plan 01/09 patient says voices have become a little quieter and she is overall feeling more calm. She remains significantly internally preoccupied with speech latency. Will continue to monitor. 01/10 continue tx plan; considering increasing Clozapine further given little improvement since last increase. Could instead increase Haldol however, this is increases risks of EPS 01/11 Patient up early today, before breakfast, the 1st time since this admission she has not slept until lunch time. Patient does think she is feeling better and although AH remain, she says she has been able to ignore them. She still feels far from her regular self but overall thinks things are headed in the right direction. -Patient asked for Clozaril to be increased thinking it is probably necessary. Sales Advisor Ambivalent since it is already higher than her home dose and she is a little bit tremulous; but further, she seems to be doing better, attending groups, speech is less latent and she is more naturally expressive. Sales Advisor will give it 1 more day and if symptoms do not further improve will increase Clozaril 01/12 Patient continues to feel that AH is better than on admission but still quite problematic; discussed medication regimen and fact that patient has bilateral hand tremor which is likely a medication side effect. Because of this she agrees with creative writer's hesitation for increasing Clozaril for now; she is hoping that over the next few days things will get better but otherwise agrees to increase Clozaril further. -if no further improvement over next few days will increase Clozaril another 12.5mg -ordered labs/clozapine level -monitor tremor and signs for clozapine toxicity (none others thus far) 01/13 continue tx. 01/14 no change to clozaril dose due to pts sleepiness; continue monitor side effects; encourage fluids 01/16 spontaneously with less thought blocking. She agrees she has not as distracted as before. Given that patient has a history of catatonia and she has appeared a little catatonic, she agrees to trial of Ativan doses to see if it helps however initially dose did not seem to make much difference. 01/18 Discussed that perhaps Haldol is what is making her excessively tired since the doses increased; patient reports increased hand tremors which are intermittently visible. Discussed changing medication of Haldol 2 starting in the afternoon instead of the morning time to help mitigate daytime tiredness, to which she agrees. Although patient has side effects, she does not want Haldol lowered as she feels voices are getting a little better. -seems to take 2 steps forward and 1 step back; today more speech latency and thought blocking than previously. Continues to have significant negative symptoms and psychomotor retardation 01/19 reviewed labs and unexpectedly, clozapine/norclozapine levels are lower although dose has remained consistent; will get advice 01/20 Patient remains very tired even though the morning Haldol dose was moved to the afternoon, making it less likely that Haldol is what is been causing sedation. Discussed case with Dr. Louis and reviewed labs; he recommends trying patient on modafinil since this can be helpful for fatigue and also often used for fatigue secondary to multiple sclerosis, which may very well be a strong contributor to patient's constant tiredness. Discussed this with patient agrees with plan and will try modafinil -ordered Haldol level at next blood draw; if symptoms do not remit further will consider lowering Haldol and increasing Clozaril (trying to treat while avoid further EPS side effects) 01/21: continue current management and treatment plan. 01/22: Monitor BP and consider changing some medication administration times to avoid low BP. Encourage hydration and PO intake. continue current management and treatment plan. PLAN: CV Q 15 minute checks START Modafinil 100mg daily for daytime sedation, secondary to both antipsychotic medication and MS fatigue; will consider increasing Clonazepam 1mg qhs . Clozaril 125 mg 14:00 Continue Clozaril 325 mg q.h.s.; increased on 01/03 (used to be on 250mg at home; at [facility] increased 275) Received Haldol Decanoate 100 mg on 01/04 (last received 12/21) given every q.2 weeks Magnesium oxide 500 mg Q 17:00; for treatment for psychotic symptoms Haldol 5 mg b.i.d. p.r.n. Continue Haldol 10 mg b.i.d. for now given patient is behind on Haldol and suffering from AH; plan will be to taper and eventually DC ReceivedInvega Sustenna 234 mg on 01/05 Q30 days- last dose administered 12/06/23 Thyroid 60 mg daily Omeprazole [address] 240mg BID for MS involve guardian in treatment discharge planning with team Reason for continued inpatient stay Substantial Risk for: inability to function, rapid decompensation and med/psych decompensation Time Spent With Patient Time: Total time managing care of this patient today ____ minutes.
[2024-01-23 20:00] VITALS: BP 119/78; PULSE 114; TEMP 36.6
[2024-01-23] MEDS: Magnesium Oxide 400 MG TABLET 500 MG PO (21:01)
[2024-01-24 08:00] VITALS: BP 108/64; PULSE 94; RESP 18; TEMP 36.4; O2SAT 95
[2024-01-24] MEDS: Benztropine Mesylate 1 MG TABLET PO ×2 (08:48→20:23)
[2024-01-24] MEDS: Thyroid,Pork 30 MG TABLET 60 MG PO (08:49)
[2024-01-24] MEDS: Folic Acid 1 MG TABLET PO (08:50)
[2024-01-24] MEDS: Loratadine 10 MG TABLET PO (08:50)
[2024-01-24] MEDS: Docusate Sodium 100 MG CAPSULE PO ×2 (08:50→20:25)
[2024-01-24] MEDS: Multivitamin TABLET 1 TAB PO (08:50)
[2024-01-24] MEDS: Omeprazole 20 MG CAPSULE.DR PO (08:50)
[2024-01-24] MEDS: modafiniL 100 MG TABLET PO ×2 (08:50→16:30)
[2024-01-24] MEDS: Propranolol HCL 10 MG TABLET PO ×2 (08:50→20:24)
--- NOTE | 2024-01-24 10:01 | HO.PSYCHPN ---
Subjective Subjective Date of Service: 01/24/24 Reason For Visit: SCHIZOPHRENIA, SI Interim History: Met with patient; discussed with team Patient continues to find auditory hallucinations lower in volume and easier to ignore. She found benefit with modafinil 100 mg in the morning though she was still tired; says she used to take Ritalin in the past which significantly helped her focus and also helped her be more awake and alert. Patient reports modafinil or off in the afternoon and asks for a 2nd dose to which board writer agrees. Discussed ECT and the potential benefits worse similar risks however patient is fearful of it and does not want it. Mental Status Exam Mental Status Exam Narrative: Pt is alert and oriented; behavior is cooperative, friendly, a little more engaged; patient is not in distress; dressed in hospital attire and neatly groomed; mood is described as better and affect congruent, a little more expressive, and less blunted; eye contact appropriate and a little more naturally expressive with less of a blank stare; Speech with thought blocking continued latency but less so and more spontaneous; still psychomotor retardation present; thought process is goal directed and seems organized; Thought content is on tx for AH; denies delusional thinking and none expressed; no SI/no HI. +AH Patients insight and judgment though remains impaired but improving Diagnostics Vital Signs (24Hr): Vital Signs - 24 hr 01/23/24 11:19 01/23/24 20:00 01/24/24 08:00 Temperature 97.9 F 97.5 F Pulse Rate 113 H 114 H 94 Respiratory Rate 18 Blood Pressure 128/75 119/78 108/64 Pulse Oximetry 95 Oxygen Delivery Method Room Air BMI result Body Mass Index 31.4 Labs 01/16/24 11:32 Medications Medications Current Medications Al Hydroxide/Mg Hydroxide (Magnesium Hydrox/Alum Hydrox 30 Ml Oral.Susp) 30 ml PO Q6H PRN PRN Reason: Heartburn/Nausea Last Admin: 01/22/24 21:35 Dose: 30 ml Albuterol Sulfate (Albuterol Sulfate 90 Mcg 8 Gm Inhaler) 2 puff INHALE RQ4H PRN PRN Reason: Shortness of Breath Last Admin: 01/22/24 16:14 Dose: 2 puff Benztropine Mesylate (Benztropine Mesylate 1 Mg Tablet) 1 mg PO BID LEW Last Admin: 01/24/24 08:48 Dose: 1 mg Clonazepam (Clonazepam 0.5 Mg Tablet) 0.5 mg PO BID PRN PRN Reason: Anxiety Last Admin: 01/22/24 02:03 Dose: 0.5 mg Clonazepam (Clonazepam 1 Mg Tablet) 1 mg PO BEDTIME [facility] Last Admin: 01/23/24 21:01 Dose: 1 mg Clonazepam (Clonazepam 1 Mg Tablet) 1 mg PO DAILY@1700 [facility] Last Admin: 01/23/24 16:22 Dose: 1 mg Clozapine 100 mg/ Clozapine 25 (mg) 125 mg PO 1400 [facility] Last Admin: 01/23/24 14:23 Dose: 125 mg Clozapine 300 mg/ Clozapine 50 (mg) 350 mg PO BEDTIME [facility] Last Admin: 01/23/24 20:58 Dose: 350 mg Docusate Sodium (Docusate Sodium 100 Mg Capsule) 100 mg PO BID [facility] Last Admin: 01/24/24 08:50 Dose: 100 mg Fluticasone Propionate (Fluticasone Propionate Nasal 16 Gm [place]) 1 spray NOSTRIL-B DAILY PRN PRN Reason: nasal congestion Folic Acid (Folic Acid 1 Mg Tablet) 1 mg PO DAILY [facility] Last Admin: 01/24/24 08:50 Dose: 1 mg Haloperidol Decanoate (Haloperidol Decanoate 50 Mg/Ml Vial) 100 mg IM Q14D [facility] Last Admin: 01/19/24 14:26 Dose: 100 mg Haloperidol Lactate (Haloperidol Lactate Oral Conc 10 Mg/5 Ml Oral.Conc) 5 mg PO BID PRN PRN Reason: agitation Last Admin: 12/30/23 22:13 Dose: 5 mg Haloperidol Lactate (Haloperidol Lactate Oral Conc 10 Mg/5 Ml Oral.Conc) 10 mg PO BID@1400,2100 [facility] Last Admin: 01/23/24 21:04 Dose: 10 mg Hydroxyzine HCl (Hydroxyzine Hcl 25 Mg Tablet) 25 mg PO Q6H PRN PRN Reason: Anxiety Last Admin: 01/22/24 01:05 Dose: 25 mg Loratadine (Loratadine 10 Mg Tablet) 10 mg PO DAILY [facility] Last Admin: 01/24/24 08:50 Dose: 10 mg Magnesium Hydroxide (Milk Of Magnesia 30 Ml Oral.Susp) 30 ml PO DAILY PRN PRN Reason: Constipation Last Admin: 01/23/24 11:18 Dose: 30 ml Magnesium Oxide (Magnesium Oxide 400 Mg Tablet) 500 mg PO BEDTIME [facility] Last Admin: 01/23/24 21:01 Dose: 500 mg Modafinil (Modafinil 100 Mg Tablet) 100 mg PO DAILY [facility] Last Admin: 01/24/24 08:50 Dose: 100 mg Multivitamins/Vitamin C (Multivitamin Tablet) 1 tab PO DAILY [facility] Last Admin: 01/24/24 08:50 Dose: 1 tab Patient Own ( (Tecfidera Dr 240 Mg)) 240 mg PO BID [facility] Last Admin: 01/24/24 08:50 Dose: 240 mg Omeprazole (Omeprazole 20 Mg Capsule.Dr) 20 mg PO DAILY@0630 [facility] Last Admin: 01/24/24 08:50 Dose: 20 mg Paliperidone Palmitate (Paliperidone Palmitate 234 Mg/1.5 Ml Syringe) 234 mg IM Q30D [facility] Last Admin: 01/06/24 13:54 Dose: 234 mg Polyethylene Glycol (Polyethylene Glycol 3350 17 Gm Powd.Pack) 17 gm PO DAILY PRN PRN Reason: ongoing Constipation Propranolol HCl (Propranolol Hcl 10 Mg Tablet) 10 mg PO BID [facility]; Protocol Last Admin: 01/24/24 08:50 Dose: 10 mg Thyroid (Thyroid,Pork 30 Mg Tablet) 60 mg PO DAILY@0600 [facility] Last Admin: 01/24/24 08:49 Dose: 60 mg Vitamin A/Vitamin D (A And D Ointment 56.7 Gm Tube) 1 appl TOPICAL BID [facility]; Protocol Last Admin: 01/24/24 08:57 Dose: Not Given Allergies Allergies Allergy/AdvReac Type Severity Reaction Status Date / Time Pork/Porcine Containing Allergy Unknown RASH Verified 12/28/23 14:54 Products [PORK/PORCINE CONTAINING PRODUCTS] ALPHA LIPOIC ACID Allergy Unknown Uncoded 10/17/23 02:24 OIL SPRAYER-3 THYROID TOXICITY Allergy Unknown Uncoded 10/17/23 02:24 Assessment & Plan Assessment & Plan (1) Schizoaffective disorder: Qualifiers: Schizoaffective disorder type: depressive Qualified Code(s): F25.1 - Schizoaffective disorder, depressive type Status: Acute Code(s): F25.9 - Schizoaffective disorder, unspecified (2) PTSD (post-traumatic stress disorder): Status: Acute Code(s): F43.10 - Post-traumatic stress disorder, unspecified (3) Multiple sclerosis: Status: Acute Code(s): G35 - Multiple sclerosis (4) Mild persistent asthma: Status: Acute Code(s): J45.30 - Mild persistent asthma, uncomplicated Plan 38-year-old female, history of schizoaffective disorder, direct admission from [facility], where patient had presented with worsening auditory hallucinations and SI. Patient is resident at [facility] for around 10 years. Patient was recently discharged from [facility] where she was admitted on 12/07. She has had several recent admissions to [facility] she was [place] [facility] [place] and then again on 11/07/2023. [facility], with some information available in the chart, but details around actual medications appears to be missing. Patient states that she received her Haldol Decanoate injection 6 days ago while in [facility]. patient reports today hearing voices telling her to go right to go left. Pt stares blankly at times; appears to be internally preoccupied. She is difficult to engage in interview; she appears anxious. denies SI or HI This board writer spoke to Griselda NAQVI, patient's guardian: Her concerns are to try to help Anjali get back to baseline she had 2 years stability while at the [facility]. She reports that there have been problems with medication, getting the correct medication on time due to a number of factors difficulty with the rims certification, difficulty with the [facility] not having the correct equipment when her injection was done was due, and after different hospitalizations medication list at discharge was not complete and the residential home was unable to correct her medication list. Griselda wonders if her sister could be placed in a long-term care nursing facility for more consistent care. Hospital course: 12/19/23 continue tx plan, hold haldol deconoate until can verify last given dose from [facility] or [facility], encourage PO intake 12/20/23 cont tx 12/20 pt reports continued incessant AH, however they are only saying things like go straight...go left...go right and no longer saying mean, provoking things. Pt asked for higher Haldol dose saying she was supposed to have it available but it was only started yesterday. She says that until about a month ago, she was doing quite well, but then her medications got changed/missed and since then she's decompensated with AH. She's not sure why her medications were changed. To her recollection she recieved Haldol Dec when she was at [facility] about a week ago. -Pt gave permission to call sister/HCP and gave Griselda's phone number. 12/21 Patient continues to report auditory hallucinations however they are still just giving her directions to follow., go left, go right.. Which she says is an improvement and they are no longer saying nasty things. Patient remains convinced that she received Haldol Decanoate at [facility]; however she accepts the [facility] providers report to this board writer that she did not receive it and agrees to get a now. Collateral: 1.Train Crew Member discussed case with patient's sister Griselda: pt doing well on regimen (clozapine, invega sustenna, Haldol Dec +prn) until this past august when she got dx with MS and was hospitalized during which time Invega held and that and other psych meds accidentally not restarted (or delayed...). AH returned and since then, patients sister has been trying to get proper med regimen restarted (at one pt there was problem with clozapine rems). Reviewed list of meds and will change accordingly (increasing mag-oxide to 500mg which is her outpt dose and helped reduce need for clozapine) 2.Train Crew Member [facility] that pt was NOT given Haldol Dec or any other long acting med while there. She did increase her Clozapine to 175mg at 2pm and 275mg at 5pm. 12/22 remains with troubling AH, negative symptoms; continue treatment plan 12/26 pt reports that AH remain the same, no less intensity. However, but is much brighter, smiling at times, says she feels ok and has been out of her room attending groups...She agrees that this behavior may signify improvement at least in her mood, if not her ability to ignore voices. -continue current tx regimen -will consider increasing clozapine 6/ more thought blocking today; AH remain quite debilitating and patient did not attend any groups today, unable to concentrate on very much due to internal preoccupation. Agrees to go up on Clozaril for now -patient reviewed her allergy list and says she has not allergic to trazodone nor she allergic to alpha lipoic acid, OIL SPRAYER 3 thyroid; also that pork allergy does not cross over to medications. -patient is a candidate for ECT if medication management does not resolve issue as she has refractory psychotic illness and negative symptoms 12/28 1st time patient said voices are little better, talking a little less; continue current treatment plan 12/29 mild improvements, patient showered, AH remains a little less talkative overall but still quite problematic, evidenced by her continued isolation, significant psychomotor retardation, speech latency; discussed speech latency and patient said she is just very distracted by the voices. Discussed medications and she agreed to go up on Clozaril. 12/30 Patient feeling extra tired this morning which she agrees is likely from last night's increased Clozaril. Not much has changed, voices remain quite problematic though less over the past couple days. She agrees to continue at this current new dose and see how things go. Will get labs 01/03 voices got a little worse this afternoon, telling her to keep the door open, which is reminiscent of AH prior to admission that proved controlling and hard for her to dismiss. Discussed case with her sister Griselda who is also healthcare proxy and present on the unit, as well as patient; discussed risks/side effects of medication regimen and all agreed to go up on Clozaril for now -though she has improved some, she is far from baseline, remains impaired and vulnerable to quickly decompensated further and taking direction from ; possibly because LA eyes are coming due 01/04 AH has intensified somewhat. Patient is coming due for long-acting injectables which may be contributing to recently worsening AH. Patient due for Haldol Decanoate 100 mg which she received today 01/04 Tomorrow patient due for Invega Sustenna 234 mg 01/04 AH has intensified somewhat. Patient is coming due for long-acting injectables which may be contributing to recently worsening AH. Patient due for Haldol Decanoate 100 mg which she received today 01/04 Tomorrow patient due for Invega Sustenna 234 mg 01/05 Voices a little less; received Invega sustenna 234mg 01/06 well dressed again; in groups more and a little more outward EKG obtained and Qtc wnl 01/07 presents better (dressed) and says AH a little better, however they are more directive and she thinks they are real, though was open to reality testing 01/08 same presentation; continue tx plan 01/09 patient says voices have become a little quieter and she is overall feeling more calm. She remains significantly internally preoccupied with speech latency. Will continue to monitor. 01/10 continue tx plan; considering increasing Clozapine further given little improvement since last increase. Could instead increase Haldol however, this is increases risks of EPS 01/11 Patient up early today, before breakfast, the 1st time since this admission she has not slept until lunch time. Patient does think she is feeling better and although AH remain, she says she has been able to ignore them. She still feels far from her regular self but overall thinks things are headed in the right direction. -Patient asked for Clozaril to be increased thinking it is probably necessary. Train Crew Member Ambivalent since it is already higher than her home dose and she is a little bit tremulous; but further, she seems to be doing better, attending groups, speech is less latent and she is more naturally expressive. Train Crew Member will give it 1 more day and if symptoms do not further improve will increase Clozaril 01/12 Patient continues to feel that AH is better than on admission but still quite problematic; discussed medication regimen and fact that patient has bilateral hand tremor which is likely a medication side effect. Because of this she agrees with board writer's hesitation for increasing Clozaril for now; she is hoping that over the next few days things will get better but otherwise agrees to increase Clozaril further. -if no further improvement over next few days will increase Clozaril another 12.5mg -ordered labs/clozapine level -monitor tremor and signs for clozapine toxicity (none others thus far) 01/13 continue tx. 01/14 no change to clozaril dose due to pts sleepiness; continue monitor side effects; encourage fluids 01/16 spontaneously with less thought blocking. She agrees she has not as distracted as before. Given that patient has a history of catatonia and she has appeared a little catatonic, she agrees to trial of Ativan doses to see if it helps however initially dose did not seem to make much difference. 01/18 Discussed that perhaps Haldol is what is making her excessively tired since the doses increased; patient reports increased hand tremors which are intermittently visible. Discussed changing medication of Haldol 2 starting in the afternoon instead of the morning time to help mitigate daytime tiredness, to which she agrees. Although patient has side effects, she does not want Haldol lowered as she feels voices are getting a little better. -seems to take 2 steps forward and 1 step back; today more speech latency and thought blocking than previously. Continues to have significant negative symptoms and psychomotor retardation 01/19 reviewed labs and unexpectedly, clozapine/norclozapine levels are lower although dose has remained consistent; will get advice 01/20 Patient remains very tired even though the morning Haldol dose was moved to the afternoon, making it less likely that Haldol is what is been causing sedation. Discussed case with Dr. Louis and reviewed labs; he recommends trying patient on modafinil since this can be helpful for fatigue and also often used for fatigue secondary to multiple sclerosis, which may very well be a strong contributor to patient's constant tiredness. Discussed this with patient agrees with plan and will try modafinil -ordered Haldol level at next blood draw; if symptoms do not remit further will consider lowering Haldol and increasing Clozaril (trying to treat while avoid further EPS side effects) 01/21: continue current management and treatment plan. 01/22: Monitor BP and consider changing some medication administration times to avoid low BP. Encourage hydration and PO intake. continue current management and treatment plan. 01/23 modafinil somewhat helpful; wants to continue asks for 2nd afternoon dose to which board writer agrees. Discussed ECT however patient does not want it at all. She remains with psychomotor retardation, blunted affect but says auditory hallucinations remain a little less and easier to ignore; discussed fatigue as possible combination from medications and MS PLAN: CV Q 15 minute checks Continue Modafinil 100mg daily and an afternoon for daytime sedation, secondary to both antipsychotic medication and MS fatigue; will consider increasing Clonazepam 1mg qhs . Clozaril 125 mg 14:00 Continue Clozaril 325 mg q.h.s.; increased on 01/03 (used to be on 250mg at home; at [facility] increased 275) Received Haldol Decanoate 100 mg on 01/04 (last received 12/21) given every q.2 weeks Magnesium oxide 500 mg Q 17:00; for treatment for psychotic symptoms Haldol 5 mg b.i.d. p.r.n. Continue Haldol 10 mg b.i.d. for now given patient is behind on Haldol and suffering from AH; plan will be to taper and eventually DC ReceivedInvega Sustenna 234 mg on 01/05 Q30 days- last dose administered 12/06/23 Thyroid 60 mg daily Omeprazole [address] 240mg BID for MS involve guardian in treatment discharge planning with team Patient educated on: diagnosis, medication risk/benefits, ECT and medical condition Informed Consent: understands Reason for continued inpatient stay Substantial Risk for: rapid decompensation and med/psych decompensation Time Spent With Patient Time: Total time managing care of this patient today ____ minutes.
[2024-01-24] MEDS: cloZAPine 100 MG, cloZAPine 25 MG 125 MG PO (13:44)
[2024-01-24] MEDS: Haloperidol Lactate Oral Conc 10 MG/5 ML ORAL.CONC PO ×2 (13:44→20:26)
[2024-01-24] MEDS: Milk of Magnesia 30 ML ORAL.SUSP PO (13:44)
[2024-01-24] MEDS: clonazePAM 1 MG TABLET PO ×2 (16:30→20:26)
[2024-01-24 20:15] VITALS: BP 137/79; PULSE 122; TEMP 36.7; O2SAT 98
[2024-01-24] MEDS: Magnesium Hydrox/Alum Hydrox 30 ML ORAL.SUSP PO (20:23)
[2024-01-24 20:24] VITALS: BP 137/79; PULSE 122
[2024-01-24] MEDS: Magnesium Oxide 400 MG TABLET 500 MG PO (20:34)
[2024-01-25] MEDS: Thyroid,Pork 30 MG TABLET 60 MG PO (07:15)
[2024-01-25] MEDS: Omeprazole 20 MG CAPSULE.DR PO (07:16)
[2024-01-25 09:00] VITALS: BP 91/52; PULSE 77; RESP 17; TEMP 37.1; O2SAT 98
[2024-01-25] MEDS: modafiniL 100 MG TABLET PO ×2 (09:23→13:15)
[2024-01-25] MEDS: Multivitamin TABLET 1 TAB PO (09:23)
[2024-01-25] MEDS: Benztropine Mesylate 1 MG TABLET PO ×2 (09:24→21:00)
[2024-01-25] MEDS: Propranolol HCL 10 MG TABLET PO ×2 (09:24→21:00)
[2024-01-25] MEDS: Loratadine 10 MG TABLET PO (09:24)
[2024-01-25] MEDS: Folic Acid 1 MG TABLET PO (09:24)
[2024-01-25] MEDS: Docusate Sodium 100 MG CAPSULE PO (09:25)
[2024-01-25] MEDS: Milk of Magnesia 30 ML ORAL.SUSP PO (11:48)
[2024-01-25] MEDS: cloZAPine 100 MG, cloZAPine 25 MG 125 MG PO (13:15)
[2024-01-25] MEDS: Haloperidol Lactate Oral Conc 10 MG/5 ML ORAL.CONC PO ×2 (13:16→20:56)
[2024-01-25] MEDS: polyethylene glycoL 3350 17 GM POWD.PACK PO (13:20)
[2024-01-25] MEDS: clonazePAM 1 MG TABLET PO ×2 (17:58→21:00)
--- NOTE | 2024-01-25 18:00 | HO.PSYCHPN ---
Subjective Subjective Date of Service: 01/25/24 Reason For Visit: SCHIZOPHRENIA, SI Interim History: Met with patient; discussed with team Patient reports that auditory hallucinations remain lower. She does not know why she remains with significant psychomotor retardation and blunted affect. Patient felt that modafinil did not really work that well today and she remains very tired; she agrees to keep it at current dosing and if not better sports writer agrees to increase it. Continue discuss increasing Clozaril however sports writer is concerned for worsening EPS side effects and blunted emotions. She agrees to keep regimen as is for now Mental Status Exam Mental Status Exam Narrative: Pt is alert and oriented; behavior is cooperative, friendly, a little more engaged; patient is not in distress; dressed in hospital attire and neatly groomed; mood is described as better and affect congruent, a little more expressive, and less blunted; eye contact appropriate and a little more naturally expressive with less of a blank stare; Speech with thought blocking continued latency but less so and more spontaneous; still psychomotor retardation present; thought process is goal directed and seems organized; Thought content is on tx for AH; denies delusional thinking and none expressed; no SI/no HI. +AH Patients insight and judgment though remains impaired but improving Diagnostics Vital Signs (24Hr): Vital Signs - 24 hr 01/24/24 20:15 01/24/24 20:24 01/25/24 09:00 Temperature 98.1 F 98.7 F Pulse Rate 122 H 122 H 77 Respiratory Rate 17 Blood Pressure 137/79 137/79 91/52 L Pulse Oximetry 98 98 Oxygen Delivery Method Room Air Room Air BMI result Body Mass Index 31.4 Labs 01/16/24 11:32 Medications Medications Current Medications Al Hydroxide/Mg Hydroxide (Magnesium Hydrox/Alum Hydrox 30 Ml Oral.Susp) 30 ml PO Q6H PRN PRN Reason: Heartburn/Nausea Last Admin: 01/24/24 20:23 Dose: 30 ml Albuterol Sulfate (Albuterol Sulfate 90 Mcg 8 Gm Inhaler) 2 puff INHALE RQ4H PRN PRN Reason: Shortness of Breath Last Admin: 01/22/24 16:14 Dose: 2 puff Benztropine Mesylate (Benztropine Mesylate 1 Mg Tablet) 1 mg PO BID LEW Last Admin: 01/25/24 09:24 Dose: 1 mg Clonazepam (Clonazepam 0.5 Mg Tablet) 0.5 mg PO BID PRN PRN Reason: Anxiety Last Admin: 01/22/24 02:03 Dose: 0.5 mg Clonazepam (Clonazepam 1 Mg Tablet) 1 mg PO BEDTIME [facility] Last Admin: 01/24/24 20:26 Dose: 1 mg Clonazepam (Clonazepam 1 Mg Tablet) 1 mg PO DAILY@1700 [facility] Last Admin: 01/25/24 17:58 Dose: 1 mg Clozapine 100 mg/ Clozapine 25 (mg) 125 mg PO 1400 [facility] Last Admin: 01/25/24 13:15 Dose: 125 mg Clozapine 300 mg/ Clozapine 50 (mg) 350 mg PO BEDTIME [facility] Last Admin: 01/24/24 20:21 Dose: 350 mg Docusate Sodium (Docusate Sodium 100 Mg Capsule) 100 mg PO BID [facility] Last Admin: 01/25/24 09:25 Dose: 100 mg Fluticasone Propionate (Fluticasone Propionate Nasal 16 Gm Wilsey) 1 spray NOSTRIL-B DAILY PRN PRN Reason: nasal congestion Folic Acid (Folic Acid 1 Mg Tablet) 1 mg PO DAILY [facility] Last Admin: 01/25/24 09:24 Dose: 1 mg Haloperidol Decanoate (Haloperidol Decanoate 50 Mg/Ml Vial) 100 mg IM Q14D [facility] Last Admin: 01/19/24 14:26 Dose: 100 mg Haloperidol Lactate (Haloperidol Lactate Oral Conc 10 Mg/5 Ml Oral.Conc) 5 mg PO BID PRN PRN Reason: agitation Last Admin: 12/30/23 22:13 Dose: 5 mg Haloperidol Lactate (Haloperidol Lactate Oral Conc 10 Mg/5 Ml Oral.Conc) 10 mg PO BID@1400,2100 [facility] Last Admin: 01/25/24 13:16 Dose: 10 mg Hydroxyzine HCl (Hydroxyzine Hcl 25 Mg Tablet) 25 mg PO Q6H PRN PRN Reason: Anxiety Last Admin: 01/22/24 01:05 Dose: 25 mg Loratadine (Loratadine 10 Mg Tablet) 10 mg PO DAILY [facility] Last Admin: 01/25/24 09:24 Dose: 10 mg Magnesium Hydroxide (Milk Of Magnesia 30 Ml Oral.Susp) 30 ml PO DAILY PRN PRN Reason: Constipation Last Admin: 01/25/24 11:48 Dose: 30 ml Magnesium Oxide (Magnesium Oxide 400 Mg Tablet) 500 mg PO BEDTIME [facility] Last Admin: 01/24/24 20:34 Dose: 500 mg Modafinil (Modafinil 100 Mg Tablet) 100 mg PO BID@0900,1400 [facility] Last Admin: 01/25/24 13:15 Dose: 100 mg Multivitamins/Vitamin C (Multivitamin Tablet) 1 tab PO DAILY [facility] Last Admin: 01/25/24 09:23 Dose: 1 tab Patient Own ( (Tecfidera Dr 240 Mg)) 240 mg PO BID [facility] Last Admin: 01/25/24 09:23 Dose: 240 mg Omeprazole (Omeprazole 20 Mg Capsule.Dr) 20 mg PO DAILY@0630 [facility] Last Admin: 01/25/24 07:16 Dose: 20 mg Paliperidone Palmitate (Paliperidone Palmitate 234 Mg/1.5 Ml Syringe) 234 mg IM Q30D [facility] Last Admin: 01/06/24 13:54 Dose: 234 mg Polyethylene Glycol (Polyethylene Glycol 3350 17 Gm Powd.Pack) 17 gm PO DAILY PRN PRN Reason: ongoing Constipation Last Admin: 01/25/24 13:20 Dose: 17 gm Propranolol HCl (Propranolol Hcl 10 Mg Tablet) 10 mg PO BID [facility]; Protocol Last Admin: 01/25/24 09:24 Dose: 10 mg Thyroid (Thyroid,Pork 30 Mg Tablet) 60 mg PO DAILY@0600 [facility] Last Admin: 01/25/24 07:15 Dose: 60 mg Vitamin A/Vitamin D (A And D Ointment 56.7 Gm Tube) 1 appl TOPICAL BID [facility]; Protocol Last Admin: 01/25/24 09:28 Dose: Not Given Allergies Allergies Allergy/AdvReac Type Severity Reaction Status Date / Time Pork/Porcine Containing Allergy Unknown RASH Verified 12/28/23 14:54 Products [PORK/PORCINE CONTAINING PRODUCTS] ALPHA LIPOIC ACID Allergy Unknown Uncoded 10/17/23 02:24 HEATER MECHANIC-3 THYROID TOXICITY Allergy Unknown Uncoded 10/17/23 02:24 Assessment & Plan Assessment & Plan (1) Schizoaffective disorder: Qualifiers: Schizoaffective disorder type: depressive Qualified Code(s): F25.1 - Schizoaffective disorder, depressive type Status: Acute Code(s): F25.9 - Schizoaffective disorder, unspecified (2) PTSD (post-traumatic stress disorder): Status: Acute Code(s): F43.10 - Post-traumatic stress disorder, unspecified (3) Multiple sclerosis: Status: Acute Code(s): G35 - Multiple sclerosis (4) Mild persistent asthma: Status: Acute Code(s): J45.30 - Mild persistent asthma, uncomplicated Plan 38-year-old female, history of schizoaffective disorder, direct admission from [facility], where patient had presented with worsening auditory hallucinations and SI. Patient is resident at [facility] for around 10 years. Patient was recently discharged from [facility] where she was admitted on 12/07. She has had several recent admissions to [facility] she was admitted to [facility] inpatient on 10/17/2023 and then again on 11/07/2023. Pt has a [facility] and [facility] order in place, with some information available in the chart, but details around actual medications appears to be missing. Patient states that she received her Haldol Decanoate injection 6 days ago while in [facility]. patient reports today hearing voices telling her to go right to go left. Pt stares blankly at times; appears to be internally preoccupied. She is difficult to engage in interview; she appears anxious. denies SI or HI This sports writer spoke to Griselda RAMOSDEZ, patient's guardian: Her concerns are to try to help Anjali get back to baseline she had 2 years stability while at the [facility]. She reports that there have been problems with medication, getting the correct medication on time due to a number of factors difficulty with the rims certification, difficulty with the [facility] not having the correct equipment when her injection was done was due, and after different hospitalizations medication list at discharge was not complete and the residential home was unable to correct her medication list. Griselda wonders if her sister could be placed in a long-term care nursing facility for more consistent care. Hospital course: 12/19/23 continue tx plan, hold haldol deconoate until can verify last given dose from [facility] or [facility], encourage PO intake 12/20/23 cont tx 12/20 pt reports continued incessant AH, however they are only saying things like go straight...go left...go right and no longer saying mean, provoking things. Pt asked for higher Haldol dose saying she was supposed to have it available but it was only started yesterday. She says that until about a month ago, she was doing quite well, but then her medications got changed/missed and since then she's decompensated with AH. She's not sure why her medications were changed. To her recollection she recieved Haldol Dec when she was at [facility] about a week ago. -Pt gave permission to call sister/HCP and gave Griselda's phone number. 12/21 Patient continues to report auditory hallucinations however they are still just giving her directions to follow., go left, go right.. Which she says is an improvement and they are no longer saying nasty things. Patient remains convinced that she received Haldol Decanoate at [facility]; however she accepts the [facility] providers report to this sports writer that she did not receive it and agrees to get a now. Collateral: 1.Wrapper Sizer discussed case with patient's sister Griselda: pt doing well on regimen (clozapine, invega sustenna, Haldol Dec +prn) until this past august when she got dx with MS and was hospitalized during which time Invega held and that and other psych meds accidentally not restarted (or delayed...). AH returned and since then, patients sister has been trying to get proper med regimen restarted (at one pt there was problem with clozapine rems). Reviewed list of meds and will change accordingly (increasing mag-oxide to 500mg which is her outpt dose and helped reduce need for clozapine) 2.Wrapper Sizer [facility] that [facility] was NOT given Haldol Dec or any other long acting med while there. She did increase her Clozapine to 175mg at 2pm and 275mg at 5pm. 12/22 remains with troubling AH, negative symptoms; continue treatment plan 12/26 pt reports that AH remain the same, no less intensity. However, but is much brighter, smiling at times, says she feels ok and has been out of her room attending groups...She agrees that this behavior may signify improvement at least in her mood, if not her ability to ignore voices. -continue current tx regimen -will consider increasing clozapine 6/ more thought blocking today; AH remain quite debilitating and patient did not attend any groups today, unable to concentrate on very much due to internal preoccupation. Agrees to go up on Clozaril for now -patient reviewed her allergy list and says she has not allergic to trazodone nor she allergic to alpha lipoic acid, HEATER MECHANIC 3 thyroid; also that pork allergy does not cross over to medications. -patient is a candidate for ECT if medication management does not resolve issue as she has refractory psychotic illness and negative symptoms 12/28 1st time patient said voices are little better, talking a little less; continue current treatment plan 12/29 mild improvements, patient showered, AH remains a little less talkative overall but still quite problematic, evidenced by her continued isolation, significant psychomotor retardation, speech latency; discussed speech latency and patient said she is just very distracted by the voices. Discussed medications and she agreed to go up on Clozaril. 12/30 Patient feeling extra tired this morning which she agrees is likely from last night's increased Clozaril. Not much has changed, voices remain quite problematic though less over the past couple days. She agrees to continue at this current new dose and see how things go. Will get labs 01/03 voices got a little worse this afternoon, telling her to keep the door open, which is reminiscent of AH prior to admission that proved controlling and hard for her to dismiss. Discussed case with her sister Griselda who is also healthcare proxy and present on the unit, as well as patient; discussed risks/side effects of medication regimen and all agreed to go up on Clozaril for now -though she has improved some, she is far from baseline, remains impaired and vulnerable to quickly decompensated further and taking direction from AH; possibly because LA eyes are coming due 01/04 AH has intensified somewhat. Patient is coming due for long-acting injectables which may be contributing to recently worsening AH. Patient due for Haldol Decanoate 100 mg which she received today 01/04 Tomorrow patient due for Invega Sustenna 234 mg 01/04 AH has intensified somewhat. Patient is coming due for long-acting injectables which may be contributing to recently worsening AH. Patient due for Haldol Decanoate 100 mg which she received today 01/04 Tomorrow patient due for Invega Sustenna 234 mg 01/05 Voices a little less; received Invega sustenna 234mg 01/06 well dressed again; in groups more and a little more outward EKG obtained and Qtc wnl 01/07 presents better (dressed) and says AH a little better, however they are more directive and she thinks they are real, though was open to reality testing 01/08 same presentation; continue tx plan 01/09 patient says voices have become a little quieter and she is overall feeling more calm. She remains significantly internally preoccupied with speech latency. Will continue to monitor. 01/10 continue tx plan; considering increasing Clozapine further given little improvement since last increase. Could instead increase Haldol however, this is increases risks of EPS 01/11 Patient up early today, before breakfast, the 1st time since this admission she has not slept until lunch time. Patient does think she is feeling better and although AH remain, she says she has been able to ignore them. She still feels far from her regular self but overall thinks things are headed in the right direction. -Patient asked for Clozaril to be increased thinking it is probably necessary. Wrapper Sizer Ambivalent since it is already higher than her home dose and she is a little bit tremulous; but further, she seems to be doing better, attending groups, speech is less latent and she is more naturally expressive. Wrapper Sizer will give it 1 more day and if symptoms do not further improve will increase Clozaril 01/12 Patient continues to feel that AH is better than on admission but still quite problematic; discussed medication regimen and fact that patient has bilateral hand tremor which is likely a medication side effect. Because of this she agrees with sports writer's hesitation for increasing Clozaril for now; she is hoping that over the next few days things will get better but otherwise agrees to increase Clozaril further. -if no further improvement over next few days will increase Clozaril another 12.5mg -ordered labs/clozapine level -monitor tremor and signs for clozapine toxicity (none others thus far) 01/13 continue tx. 01/14 no change to clozaril dose due to pts sleepiness; continue monitor side effects; encourage fluids 01/16 spontaneously with less thought blocking. She agrees she has not as distracted as before. Given that patient has a history of catatonia and she has appeared a little catatonic, she agrees to trial of Ativan doses to see if it helps however initially dose did not seem to make much difference. 01/18 Discussed that perhaps Haldol is what is making her excessively tired since the doses increased; patient reports increased hand tremors which are intermittently visible. Discussed changing medication of Haldol 2 starting in the afternoon instead of the morning time to help mitigate daytime tiredness, to which she agrees. Although patient has side effects, she does not want Haldol lowered as she feels voices are getting a little better. -seems to take 2 steps forward and 1 step back; today more speech latency and thought blocking than previously. Continues to have significant negative symptoms and psychomotor retardation 01/19 reviewed labs and unexpectedly, clozapine/norclozapine levels are lower although dose has remained consistent; will get advice 01/20 Patient remains very tired even though the morning Haldol dose was moved to the afternoon, making it less likely that Haldol is what is been causing sedation. Discussed case with Dr. Louis and reviewed labs; he recommends trying patient on modafinil since this can be helpful for fatigue and also often used for fatigue secondary to multiple sclerosis, which may very well be a strong contributor to patient's constant tiredness. Discussed this with patient agrees with plan and will try modafinil -ordered Haldol level at next blood draw; if symptoms do not remit further will consider lowering Haldol and increasing Clozaril (trying to treat while avoid further EPS side effects) 01/21: continue current management and treatment plan. 01/22: Monitor BP and consider changing some medication administration times to avoid low BP. Encourage hydration and PO intake. continue current management and treatment plan. 01/23 modafinil somewhat helpful; wants to continue asks for 2nd afternoon dose to which sports writer agrees. Discussed ECT however patient does not want it at all. She remains with psychomotor retardation, blunted affect but says auditory hallucinations remain a little less and easier to ignore; discussed fatigue as possible combination from medications and MS 01/24 Patient reports that auditory hallucinations remain lower. Still with significant psychomotor retardation and blunted affect. [place] modafinil did not work well today; will continue current dose and increase if needed. Continue discuss increasing Clozaril however sports writer is concerned for worsening EPS side effects and blunted emotions. She agrees to keep regimen as is for now PLAN: CV Q 15 minute checks Continue Modafinil 100mg daily and an afternoon for daytime sedation, secondary to both antipsychotic medication and MS fatigue; will consider increasing Clonazepam 1mg qhs . Clozaril 125 mg 14:00 Continue Clozaril 325 mg q.h.s.; increased on 01/03 (used to be on 250mg at home; at [facility] increased 275) Received Haldol Decanoate 100 mg on 01/04 (last received 12/21) given every q.2 weeks Magnesium oxide 500 mg Q 17:00; for treatment for psychotic symptoms Haldol 5 mg b.i.d. p.r.n. Continue Haldol 10 mg b.i.d. for now given patient is behind on Haldol and suffering from AH; plan will be to taper and eventually DC ReceivedInvega Sustenna 234 mg on 01/05 Q30 days- last dose administered 12/06/23 Thyroid 60 mg daily Omeprazole [address] 240mg BID for MS involve guardian in treatment discharge planning with team Patient educated on: diagnosis and medication risk/benefits Informed Consent: understands and further education needed Reason for continued inpatient stay Substantial Risk for: rapid decompensation Time Spent With Patient Time: Total time managing care of this patient today ____ minutes.
[2024-01-25 20:00] VITALS: BP 132/90; PULSE 115; RESP 16; O2SAT 98
[2024-01-25] MEDS: A and D Ointment 56.7 GM TUBE 1 APPL TOPICAL (20:56)
[2024-01-25] MEDS: Magnesium Oxide 400 MG TABLET 500 MG PO (20:56)
[2024-01-25 21:00] VITALS: BP 132/90; PULSE 98
[2024-01-26 08:20] VITALS: BP 88/55; PULSE 83; RESP 16; TEMP 36.8; O2SAT 97
[2024-01-26 09:23] VITALS: BP 114/74; PULSE 101; RESP 16; TEMP 36.4; O2SAT 98
[2024-01-26] MEDS: Folic Acid 1 MG TABLET PO (09:58)
[2024-01-26] MEDS: modafiniL 100 MG TABLET PO (09:58)
[2024-01-26] MEDS: Omeprazole 20 MG CAPSULE.DR PO (09:58)
[2024-01-26] MEDS: Benztropine Mesylate 1 MG TABLET PO ×2 (09:59→21:30)
[2024-01-26] MEDS: Loratadine 10 MG TABLET PO (09:59)
[2024-01-26] MEDS: Docusate Sodium 100 MG CAPSULE PO (09:59)
[2024-01-26] MEDS: Multivitamin TABLET 1 TAB PO (09:59)
[2024-01-26] MEDS: Thyroid,Pork 30 MG TABLET 60 MG PO (09:59)
--- NOTE | 2024-01-26 10:23 | HO.PSYCHPN ---
Subjective Subjective Date of Service: 01/26/24 Reason For Visit: SCHIZOPHRENIA, SI Interim History: Met with patient; discussed with team Patient so tired this morning she did not remember talking with copywriter. Face Worker met with her later on after getting modafinil 200 mg, an increase from the 100 mg she was normally getting. Patient felt that this was too much and wants to go back to the 100 mg b.i.d.. She overall thinks it helps though for the past 2 days copywriter has not noticed any difference in her ability to remain alert. Remains with significant negative symptoms Mental Status Exam Mental Status Exam Narrative: Pt is alert and oriented; behavior is cooperative, friendly, a little more engaged; patient is not in distress; dressed in hospital attire and neatly groomed; mood is described as better and affect congruent, a little more expressive, and less blunted; eye contact appropriate and a little more naturally expressive with less of a blank stare; Speech with thought blocking continued latency but less so and more spontaneous; still psychomotor retardation present; thought process is goal directed and seems organized; Thought content is on tx for AH; denies delusional thinking and none expressed; no SI/no HI. +AH Patients insight and judgment though remains impaired but improving Diagnostics Vital Signs (24Hr): Vital Signs - 24 hr 01/25/24 20:00 01/25/24 21:00 Pulse Rate 115 H 98 Respiratory Rate 16 Blood Pressure 132/90 H 132/90 H Pulse Oximetry 98 Oxygen Delivery Method Room Air BMI result Body Mass Index 31.4 Labs 01/16/24 11:32 Medications Medications Current Medications Al Hydroxide/Mg Hydroxide (Magnesium Hydrox/Alum Hydrox 30 Ml Oral.Susp) 30 ml PO Q6H PRN PRN Reason: Heartburn/Nausea Last Admin: 01/24/24 20:23 Dose: 30 ml Albuterol Sulfate (Albuterol Sulfate 90 Mcg 8 Gm Inhaler) 2 puff INHALE RQ4H PRN PRN Reason: Shortness of Breath Last Admin: 01/22/24 16:14 Dose: 2 puff Benztropine Mesylate (Benztropine Mesylate 1 Mg Tablet) 1 mg PO BID LEW Last Admin: 01/26/24 09:59 Dose: 1 mg Clonazepam (Clonazepam 0.5 Mg Tablet) 0.5 mg PO BID PRN PRN Reason: Anxiety Last Admin: 01/22/24 02:03 Dose: 0.5 mg Clonazepam (Clonazepam 1 Mg Tablet) 1 mg PO BEDTIME [facility] Last Admin: 01/25/24 21:00 Dose: 1 mg Clonazepam (Clonazepam 1 Mg Tablet) 1 mg PO DAILY@1700 [facility] Last Admin: 01/25/24 17:58 Dose: 1 mg Clozapine 100 mg/ Clozapine 25 (mg) 125 mg PO 1400 [facility] Last Admin: 01/25/24 13:15 Dose: 125 mg Clozapine 300 mg/ Clozapine 50 (mg) 350 mg PO BEDTIME [facility] Last Admin: 01/25/24 20:59 Dose: 350 mg Docusate Sodium (Docusate Sodium 100 Mg Capsule) 100 mg PO BID [facility] Last Admin: 01/26/24 09:59 Dose: 100 mg Fluticasone Propionate (Fluticasone Propionate Nasal 16 Gm [place]) 1 spray NOSTRIL-B DAILY PRN PRN Reason: nasal congestion Folic Acid (Folic Acid 1 Mg Tablet) 1 mg PO DAILY [facility] Last Admin: 01/26/24 09:58 Dose: 1 mg Haloperidol Decanoate (Haloperidol Decanoate 50 Mg/Ml Vial) 100 mg IM Q14D [facility] Last Admin: 01/19/24 14:26 Dose: 100 mg Haloperidol Lactate (Haloperidol Lactate Oral Conc 10 Mg/5 Ml Oral.Conc) 5 mg PO BID PRN PRN Reason: agitation Last Admin: 12/30/23 22:13 Dose: 5 mg Haloperidol Lactate (Haloperidol Lactate Oral Conc 10 Mg/5 Ml Oral.Conc) 10 mg PO BID@1400,2100 [facility] Last Admin: 01/25/24 20:56 Dose: 10 mg Hydroxyzine HCl (Hydroxyzine Hcl 25 Mg Tablet) 25 mg PO Q6H PRN PRN Reason: Anxiety Last Admin: 01/22/24 01:05 Dose: 25 mg Loratadine (Loratadine 10 Mg Tablet) 10 mg PO DAILY [facility] Last Admin: 01/26/24 09:59 Dose: 10 mg Magnesium Hydroxide (Milk Of Magnesia 30 Ml Oral.Susp) 30 ml PO DAILY PRN PRN Reason: Constipation Last Admin: 01/25/24 11:48 Dose: 30 ml Magnesium Oxide (Magnesium Oxide 400 Mg Tablet) 500 mg PO BEDTIME [facility] Last Admin: 01/25/24 20:56 Dose: 500 mg Modafinil (Modafinil 100 Mg Tablet) 100 mg PO BID@0900,1400 [facility] Last Admin: 01/26/24 09:58 Dose: 100 mg Multivitamins/Vitamin C (Multivitamin Tablet) 1 tab PO DAILY [facility] Last Admin: 01/26/24 09:59 Dose: 1 tab Patient Own ( (Tecfidera Dr 240 Mg)) 240 mg PO BID [facility] Last Admin: 01/26/24 09:58 Dose: 240 mg Omeprazole (Omeprazole 20 Mg Capsule.Dr) 20 mg PO DAILY@0630 [facility] Last Admin: 01/26/24 09:58 Dose: 20 mg Paliperidone Palmitate (Paliperidone Palmitate 234 Mg/1.5 Ml Syringe) 234 mg IM Q30D [facility] Last Admin: 01/06/24 13:54 Dose: 234 mg Polyethylene Glycol (Polyethylene Glycol 3350 17 Gm Powd.Pack) 17 gm PO DAILY PRN PRN Reason: ongoing Constipation Last Admin: 01/25/24 13:20 Dose: 17 gm Propranolol HCl (Propranolol Hcl 10 Mg Tablet) 10 mg PO BID [facility]; Protocol Last Admin: 01/26/24 10:00 Dose: Not Given Thyroid (Thyroid,Pork 30 Mg Tablet) 60 mg PO DAILY@0600 [facility] Last Admin: 01/26/24 09:59 Dose: 60 mg Vitamin A/Vitamin D (A And D Ointment 56.7 Gm Tube) 1 appl TOPICAL BID [facility]; Protocol Last Admin: 01/26/24 09:59 Dose: Not Given Allergies Allergies Allergy/AdvReac Type Severity Reaction Status Date / Time Pork/Porcine Containing Allergy Unknown RASH Verified 12/28/23 14:54 Products [PORK/PORCINE CONTAINING PRODUCTS] ALPHA LIPOIC ACID Allergy Unknown Uncoded 10/17/23 02:24 INSIDE SALES COORDINATOR-3 THYROID TOXICITY Allergy Unknown Uncoded 10/17/23 02:24 Assessment & Plan Assessment & Plan (1) Schizoaffective disorder: Qualifiers: Schizoaffective disorder type: depressive Qualified Code(s): F25.1 - Schizoaffective disorder, depressive type Status: Acute Code(s): F25.9 - Schizoaffective disorder, unspecified (2) PTSD (post-traumatic stress disorder): Status: Acute Code(s): F43.10 - Post-traumatic stress disorder, unspecified (3) Multiple sclerosis: Status: Acute Code(s): G35 - Multiple sclerosis (4) Mild persistent asthma: Status: Acute Code(s): J45.30 - Mild persistent asthma, uncomplicated Plan 38-year-old female, history of schizoaffective disorder, direct admission from [facility], where patient had presented with worsening auditory hallucinations and SI. Patient is resident at [facility] for around 10 years. Patient was recently discharged from [facility] where she was admitted on 12/07. She has had several recent admissions to [facility] she was admitted to [facility] inpatient on 10/17/2023 and then again on 11/07/2023. Pt has a [facility] and [facility] order in place, with some information available in the chart, but details around actual medications appears to be missing. Patient states that she received her Haldol Decanoate injection 6 days ago while in [facility]. patient reports today hearing voices telling her to go right to go left. Pt stares blankly at times; appears to be internally preoccupied. She is difficult to engage in interview; she appears anxious. denies SI or HI This copywriter spoke to Griselda DONYA, patient's guardian: Her concerns are to try to help Anjali get back to baseline she had 2 years stability while at the [facility]. She reports that there have been problems with medication, getting the correct medication on time due to a number of factors difficulty with the rims certification, difficulty with the [facility] not having the correct equipment when her injection was done was due, and after different hospitalizations medication list at discharge was not complete and the residential home was unable to correct her medication list. Griselda wonders if her sister could be placed in a long-term care nursing facility for more consistent care. Hospital course: 12/19/23 continue tx plan, hold haldol deconoate until can verify last given dose from [facility] or [facility], encourage PO intake 12/20/23 cont tx 12/20 pt reports continued incessant AH, however they are only saying things like go straight...go left...go right and no longer saying mean, provoking things. Pt asked for higher Haldol dose saying she was supposed to have it available but it was only started yesterday. She says that until about a month ago, she was doing quite well, but then her medications got changed/missed and since then she's decompensated with AH. She's not sure why her medications were changed. To her recollection she recieved Haldol Dec when she was at [facility] about a week ago. -Pt gave permission to call sister/HCP and gave Griselda's phone number. 12/21 Patient continues to report auditory hallucinations however they are still just giving her directions to follow., go left, go right.. Which she says is an improvement and they are no longer saying nasty things. Patient remains convinced that she received Haldol Decanoate at [facility]; however she accepts the [facility] providers report to this copywriter that she did not receive it and agrees to get a now. Collateral: 1.Face Worker discussed case with patient's sister Griselda: pt doing well on regimen (clozapine, invega sustenna, Haldol Dec +prn) until this past august when she got dx with MS and was hospitalized during which time Invega held and that and other psych meds accidentally not restarted (or delayed...). AH returned and since then, patients sister has been trying to get proper med regimen restarted (at one pt there was problem with clozapine rems). Reviewed list of meds and will change accordingly (increasing mag-oxide to 500mg which is her outpt dose and helped reduce need for clozapine) 2.Face Worker [facility] reports that pt was NOT given Haldol Dec or any other long acting med while there. She did increase her Clozapine to 175mg at 2pm and 275mg at 5pm. 12/22 remains with troubling AH, negative symptoms; continue treatment plan / pt reports that AH remain the same, no less intensity. However, but is much brighter, smiling at times, says she feels ok and has been out of her room attending groups...She agrees that this behavior may signify improvement at least in her mood, if not her ability to ignore voices. -continue current tx regimen -will consider increasing clozapine 6/ more thought blocking today; AH remain quite debilitating and patient did not attend any groups today, unable to concentrate on very much due to internal preoccupation. Agrees to go up on Clozaril for now -patient reviewed her allergy list and says she has not allergic to trazodone nor she allergic to alpha lipoic acid, INSIDE SALES COORDINATOR 3 thyroid; also that pork allergy does not cross over to medications. -patient is a candidate for ECT if medication management does not resolve issue as she has refractory psychotic illness and negative symptoms 12/28 1st time patient said voices are little better, talking a little less; continue current treatment plan 12/29 mild improvements, patient showered, AH remains a little less talkative overall but still quite problematic, evidenced by her continued isolation, significant psychomotor retardation, speech latency; discussed speech latency and patient said she is just very distracted by the voices. Discussed medications and she agreed to go up on Clozaril. 12/30 Patient feeling extra tired this morning which she agrees is likely from last night's increased Clozaril. Not much has changed, voices remain quite problematic though less over the past couple days. She agrees to continue at this current new dose and see how things go. Will get labs 01/03 voices got a little worse this afternoon, telling her to keep the door open, which is reminiscent of AH prior to admission that proved controlling and hard for her to dismiss. Discussed case with her sister Griselda who is also healthcare proxy and present on the unit, as well as patient; discussed risks/side effects of medication regimen and all agreed to go up on Clozaril for now -though she has improved some, she is far from baseline, remains impaired and vulnerable to quickly decompensated further and taking direction from AH; possibly because [place] eyes are coming due 01/04 AH has intensified somewhat. Patient is coming due for long-acting injectables which may be contributing to recently worsening AH. Patient due for Haldol Decanoate 100 mg which she received today 01/04 Tomorrow patient due for Invega Sustenna 234 mg 01/04 AH has intensified somewhat. Patient is coming due for long-acting injectables which may be contributing to recently worsening AH. Patient due for Haldol Decanoate 100 mg which she received today 01/04 Tomorrow patient due for Invega Sustenna 234 mg 01/05 Voices a little less; received Invega sustenna 234mg 01/06 well dressed again; in groups more and a little more outward EKG obtained and Qtc wnl 01/07 presents better (dressed) and says AH a little better, however they are more directive and she thinks they are real, though was open to reality testing 01/08 same presentation; continue tx plan 01/09 patient says voices have become a little quieter and she is overall feeling more calm. She remains significantly internally preoccupied with speech latency. Will continue to monitor. 01/10 continue tx plan; considering increasing Clozapine further given little improvement since last increase. Could instead increase Haldol however, this is increases risks of EPS 01/11 Patient up early today, before breakfast, the 1st time since this admission she has not slept until lunch time. Patient does think she is feeling better and although AH remain, she says she has been able to ignore them. She still feels far from her regular self but overall thinks things are headed in the right direction. -Patient asked for Clozaril to be increased thinking it is probably necessary. Face Worker Ambivalent since it is already higher than her home dose and she is a little bit tremulous; but further, she seems to be doing better, attending groups, speech is less latent and she is more naturally expressive. Face Worker will give it 1 more day and if symptoms do not further improve will increase Clozaril 01/12 Patient continues to feel that AH is better than on admission but still quite problematic; discussed medication regimen and fact that patient has bilateral hand tremor which is likely a medication side effect. Because of this she agrees with copywriter's hesitation for increasing Clozaril for now; she is hoping that over the next few days things will get better but otherwise agrees to increase Clozaril further. -if no further improvement over next few days will increase Clozaril another 12.5mg -ordered labs/clozapine level -monitor tremor and signs for clozapine toxicity (none others thus far) 01/13 continue tx. 01/14 no change to clozaril dose due to pts sleepiness; continue monitor side effects; encourage fluids 01/16 spontaneously with less thought blocking. She agrees she has not as distracted as before. Given that patient has a history of catatonia and she has appeared a little catatonic, she agrees to trial of Ativan doses to see if it helps however initially dose did not seem to make much difference. 01/18 Discussed that perhaps Haldol is what is making her excessively tired since the doses increased; patient reports increased hand tremors which are intermittently visible. Discussed changing medication of Haldol 2 starting in the afternoon instead of the morning time to help mitigate daytime tiredness, to which she agrees. Although patient has side effects, she does not want Haldol lowered as she feels voices are getting a little better. -seems to take 2 steps forward and 1 step back; today more speech latency and thought blocking than previously. Continues to have significant negative symptoms and psychomotor retardation 01/19 reviewed labs and unexpectedly, clozapine/norclozapine levels are lower although dose has remained consistent; will get advice 01/20 Patient remains very tired even though the morning Haldol dose was moved to the afternoon, making it less likely that Haldol is what is been causing sedation. Discussed case with Dr. Louis and reviewed labs; he recommends trying patient on modafinil since this can be helpful for fatigue and also often used for fatigue secondary to multiple sclerosis, which may very well be a strong contributor to patient's constant tiredness. Discussed this with patient agrees with plan and will try modafinil -ordered Haldol level at next blood draw; if symptoms do not remit further will consider lowering Haldol and increasing Clozaril (trying to treat while avoid further EPS side effects) 01/21: continue current management and treatment plan. 01/22: Monitor BP and consider changing some medication administration times to avoid low BP. Encourage hydration and PO intake. continue current management and treatment plan. 01/23 modafinil somewhat helpful; wants to continue asks for 2nd afternoon dose to which copywriter agrees. Discussed ECT however patient does not want it at all. She remains with psychomotor retardation, blunted affect but says auditory hallucinations remain a little less and easier to ignore; discussed fatigue as possible combination from medications and MS 01/24 Patient reports that auditory hallucinations remain lower. Still with significant psychomotor retardation and blunted affect. [place] modafinil did not work well today; will continue current dose and increase if needed. Continue discuss increasing Clozaril however copywriter is concerned for worsening EPS side effects and blunted emotions. She agrees to keep regimen as is for now 01/25 try modafinil 200 mg 1 time dose however patient felt it was too much; wants to go back to the 100 mg b.i.d. -patient has history of catatonia; of note did give patient a trial of Ativan however she said it make any difference and none observed and she is already on clonazepam daily PLAN: CV Q 15 minute checks Continue Modafinil 100mg daily and an afternoon for daytime sedation, secondary to both antipsychotic medication and MS fatigue; will consider increasing Clonazepam 1mg qhs . Clozaril 125 mg 14:00 Continue Clozaril 325 mg q.h.s.; increased on 01/03 (used to be on 250mg at home; at [facility] increased 275) Received Haldol Decanoate 100 mg on 01/04 (last received 12/21) given every q.2 weeks Magnesium oxide 500 mg Q 17:00; for treatment for psychotic symptoms Haldol 5 mg b.i.d. p.r.n. Continue Haldol 10 mg b.i.d. for now given patient is behind on Haldol and suffering from AH; plan will be to taper and eventually DC ReceivedInvega Sustenna 234 mg on 01/05 Q30 days- last dose administered 12/06/23 Thyroid 60 mg daily Omeprazole [address] 240mg BID for MS involve guardian in treatment discharge planning with team Patient educated on: diagnosis and medication risk/benefits Informed Consent: understands and further education needed Reason for continued inpatient stay Substantial Risk for: inability to function Time Spent With Patient Time: Total time managing care of this patient today ____ minutes.
[2024-01-26 13:47] VITALS: BP 118/62
[2024-01-26] MEDS: cloZAPine 100 MG, cloZAPine 25 MG 125 MG PO (13:47)
[2024-01-26] MEDS: Propranolol HCL 10 MG TABLET PO ×2 (13:47→21:29)
[2024-01-26] MEDS: modafiniL 100 MG TABLET 200 MG PO (13:47)
[2024-01-26] MEDS: Haloperidol Lactate Oral Conc 10 MG/5 ML ORAL.CONC PO ×2 (13:47→21:29)
[2024-01-26] MEDS: clonazePAM 1 MG TABLET PO ×2 (17:27→21:30)
[2024-01-26] MEDS: Magnesium Oxide 400 MG TABLET 500 MG PO (21:30)
[2024-01-26 22:15] VITALS: BP 120/78; PULSE 122; RESP 18; TEMP 36.6; O2SAT 98
[2024-01-27] MEDS: hydrOXYzine HCL 25 MG TABLET PO (01:46)
[2024-01-27] MEDS: clonazePAM 0.5 MG TABLET PO (01:46)
[2024-01-27] MEDS: Thyroid,Pork 30 MG TABLET 60 MG PO (06:27)
[2024-01-27] MEDS: Omeprazole 20 MG CAPSULE.DR PO (06:27)
[2024-01-27 08:00] VITALS: BP 105/58; PULSE 96; RESP 18; TEMP 36.6; O2SAT 97
[2024-01-27 09:00] VITALS: BP 116/61; PULSE 94
[2024-01-27] MEDS: Propranolol HCL 10 MG TABLET PO ×2 (09:27→20:47)
[2024-01-27] MEDS: Multivitamin TABLET 1 TAB PO (09:27)
[2024-01-27] MEDS: Benztropine Mesylate 1 MG TABLET PO ×2 (09:27→20:43)
[2024-01-27] MEDS: modafiniL 100 MG TABLET PO ×2 (09:28→13:42)
[2024-01-27] MEDS: Loratadine 10 MG TABLET PO (09:28)
[2024-01-27] MEDS: Folic Acid 1 MG TABLET PO (09:28)
--- NOTE | 2024-01-27 10:33 | P.PNPSI_ITS ---
Subjective Subjective Date of Service: 01/27/24 Reason For Visit: SCHIZOPHRENIA, SI Interim History: Met with patient; discussed with team; Reports she is feeling better today and actually says she is good. Still blunted and slow moving but says that auditory hallucinations remain quieter and she is more able to ignore them. She thinks the modafinil is actually helping and grateful to continue it. She feels like she will probably be ready to go home early next week. Mental Status Exam Mental Status Exam Narrative: Pt is alert and oriented; behavior is cooperative, friendly, a little more engaged; patient is not in distress; dressed in casual attire and neatly groomed; mood is described as better and affect congruent, a little more expressive, and less blunted; eye contact appropriate and a little more naturally expressive with less of a blank stare; Speech with thought blocking continued latency but less so and more spontaneous; still psychomotor retardation present; thought process is goal directed and seems organized; Thought content is on tx for AH; denies delusional thinking and none expressed; no SI/no HI. +AH Patients insight and judgment though remains impaired but much improved and adequate Diagnostics Vital Signs (24Hr): Vital Signs - 24 hr 01/26/24 13:47 01/26/24 22:15 01/27/24 08:00 Temperature 97.8 F 98 F Pulse Rate 122 H 96 Respiratory Rate 18 18 Blood Pressure 118/62 120/78 105/58 L Pulse Oximetry 98 97 Oxygen Delivery Method Room Air Room Air 01/27/24 09:00 Temperature Pulse Rate 94 Respiratory Rate Blood Pressure 116/61 Pulse Oximetry Oxygen Delivery Method BMI result Body Mass Index 31.4 Labs 01/16/24 11:32 Medications Medications Current Medications Al Hydroxide/Mg Hydroxide (Magnesium Hydrox/Alum Hydrox 30 Ml Oral.Susp) 30 ml PO Q6H PRN PRN Reason: Heartburn/Nausea Last Admin: 01/24/24 20:23 Dose: 30 ml Albuterol Sulfate (Albuterol Sulfate 90 Mcg 8 Gm Inhaler) 2 puff INHALE RQ4H PRN PRN Reason: Shortness of Breath Last Admin: 01/22/24 16:14 Dose: 2 puff Benztropine Mesylate (Benztropine Mesylate 1 Mg Tablet) 1 mg PO BID LEW Last Admin: 01/27/24 09:27 Dose: 1 mg Clonazepam (Clonazepam 0.5 Mg Tablet) 0.5 mg PO BID PRN PRN Reason: Anxiety Last Admin: 01/27/24 01:46 Dose: 0.5 mg Clonazepam (Clonazepam 1 Mg Tablet) 1 mg PO BEDTIME [facility] Last Admin: 01/26/24 21:30 Dose: 1 mg Clonazepam (Clonazepam 1 Mg Tablet) 1 mg PO DAILY@1700 [facility] Last Admin: 01/26/24 17:27 Dose: 1 mg Clozapine 100 mg/ Clozapine 25 (mg) 125 mg PO 1400 [facility] Last Admin: 01/26/24 13:47 Dose: 125 mg Clozapine 300 mg/ Clozapine 50 (mg) 350 mg PO BEDTIME [facility] Last Admin: 01/26/24 21:29 Dose: 350 mg Docusate Sodium (Docusate Sodium 100 Mg Capsule) 100 mg PO BID [facility] Last Admin: 01/27/24 09:52 Dose: Not Given Fluticasone Propionate (Fluticasone Propionate Nasal 16 Gm [place]) 1 spray NOSTRIL-B DAILY PRN PRN Reason: nasal congestion Folic Acid (Folic Acid 1 Mg Tablet) 1 mg PO DAILY [facility] Last Admin: 01/27/24 09:28 Dose: 1 mg Haloperidol Decanoate (Haloperidol Decanoate 50 Mg/Ml Vial) 100 mg IM Q14D [facility] Last Admin: 01/19/24 14:26 Dose: 100 mg Haloperidol Lactate (Haloperidol Lactate Oral Conc 10 Mg/5 Ml Oral.Conc) 5 mg PO BID PRN PRN Reason: agitation Last Admin: 12/30/23 22:13 Dose: 5 mg Haloperidol Lactate (Haloperidol Lactate Oral Conc 10 Mg/5 Ml Oral.Conc) 10 mg PO BID@1400,2100 [facility] Last Admin: 01/26/24 21:29 Dose: 10 mg Hydroxyzine HCl (Hydroxyzine Hcl 25 Mg Tablet) 25 mg PO Q6H PRN PRN Reason: Anxiety Last Admin: 01/27/24 01:46 Dose: 25 mg Loratadine (Loratadine 10 Mg Tablet) 10 mg PO DAILY [facility] Last Admin: 01/27/24 09:28 Dose: 10 mg Magnesium Hydroxide (Milk Of Magnesia 30 Ml Oral.Susp) 30 ml PO DAILY PRN PRN Reason: Constipation Last Admin: 01/25/24 11:48 Dose: 30 ml Magnesium Oxide (Magnesium Oxide 400 Mg Tablet) 500 mg PO BEDTIME [facility] Last Admin: 01/26/24 21:30 Dose: 500 mg Modafinil (Modafinil 100 Mg Tablet) 100 mg PO BID@0900,1300 [facility] Last Admin: 01/27/24 09:28 Dose: 100 mg Multivitamins/Vitamin C (Multivitamin Tablet) 1 tab PO DAILY [facility] Last Admin: 01/27/24 09:27 Dose: 1 tab Patient Own ( (Tecfidera Dr 240 Mg)) 240 mg PO BID [facility] Last Admin: 01/27/24 09:36 Dose: 240 mg Omeprazole (Omeprazole 20 Mg Capsule.Dr) 20 mg PO DAILY@0630 [facility] Last Admin: 01/27/24 06:27 Dose: 20 mg Paliperidone Palmitate (Paliperidone Palmitate 234 Mg/1.5 Ml Syringe) 234 mg IM Q30D [facility] Last Admin: 01/06/24 13:54 Dose: 234 mg Polyethylene Glycol (Polyethylene Glycol 3350 17 Gm Powd.Pack) 17 gm PO DAILY PRN PRN Reason: ongoing Constipation Last Admin: 01/25/24 13:20 Dose: 17 gm Propranolol HCl (Propranolol Hcl 10 Mg Tablet) 10 mg PO BID [facility]; Protocol Last Admin: 01/27/24 09:27 Dose: 10 mg Thyroid (Thyroid,Pork 30 Mg Tablet) 60 mg PO DAILY@0600 [facility] Last Admin: 01/27/24 06:27 Dose: 60 mg Vitamin A/Vitamin D (A And D Ointment 56.7 Gm Tube) 1 appl TOPICAL BID [facility]; Protocol Last Admin: 01/27/24 09:09 Dose: Not Given Allergies Allergies Allergy/AdvReac Type Severity Reaction Status Date / Time Pork/Porcine Containing Allergy Unknown RASH Verified 12/28/23 14:54 Products [PORK/PORCINE CONTAINING PRODUCTS] ALPHA LIPOIC ACID Allergy Unknown Uncoded 10/17/23 02:24 WARP DYEING TENDER-3 THYROID TOXICITY Allergy Unknown Uncoded 10/17/23 02:24 Assessment & Plan Assessment & Plan (1) Schizoaffective disorder: Qualifiers: Schizoaffective disorder type: depressive Qualified Code(s): F25.1 - Schizoaffective disorder, depressive type Status: Acute Code(s): F25.9 - Schizoaffective disorder, unspecified (2) PTSD (post-traumatic stress disorder): Status: Acute Code(s): F43.10 - Post-traumatic stress disorder, unspecified (3) Multiple sclerosis: Status: Acute Code(s): G35 - Multiple sclerosis (4) Mild persistent asthma: Status: Acute Code(s): J45.30 - Mild persistent asthma, uncomplicated Plan 38-year-old female, history of schizoaffective disorder, direct admission from [facility], where patient had presented with worsening auditory hallucinations and SI. Patient is resident at [facility] for around 10 years. Patient was recently discharged from [facility] where she was admitted on 12/07. She has had several recent admissions to [facility] she was admitted to [facility] inpatient on 10/17/2023 and then again on 11/07/2023. Pt has a [facility] and [facility] order in place, with some information available in the chart, but details around actual medications appears to be missing. Patient states that she received her Haldol Decanoate injection 6 days ago while in [facility]. patient reports today hearing voices telling her to go right to go left. Pt stares blankly at times; appears to be internally preoccupied. She is difficult to engage in interview; she appears anxious. denies SI or HI This chief underwriter spoke to Griselda RAMOSDEZ, patient's guardian: Her concerns are to try to help Anjali get back to baseline she had 2 years stability while at the [facility]. She reports that there have been problems with medication, getting the correct medication on time due to a number of factors difficulty with the rims certification, difficulty with the [facility] not having the correct equipment when her injection was done was due, and after different hospitalizations medication list at discharge was not complete and the residential home was unable to correct her medication list. Griselda wonders if her sister could be placed in a long-term care nursing facility for more consistent care. Hospital course: 12/19/23 continue tx plan, hold haldol deconoate until can verify last given dose from [facility] or [facility], encourage PO intake 12/20/23 cont tx 12/20 pt reports continued incessant AH, however they are only saying things like go straight...go left...go right and no longer saying mean, provoking things. Pt asked for higher Haldol dose saying she was supposed to have it available but it was only started yesterday. She says that until about a month ago, she was doing quite well, but then her medications got changed/missed and since then she's decompensated with AH. She's not sure why her medications were changed. To her recollection she recieved Haldol Dec when she was at [facility] about a week ago. -Pt gave permission to call sister/HCP and gave Griselda's phone number. 12/21 Patient continues to report auditory hallucinations however they are still just giving her directions to follow., go left, go right.. Which she says is an improvement and they are no longer saying nasty things. Patient remains convinced that she received Haldol Decanoate at [facility]; however she accepts the [facility] providers report to this chief underwriter that she did not receive it and agrees to get a now. Collateral: 1.Breast Worker discussed case with patient's sister Griselda: pt doing well on regimen (clozapine, invega sustenna, Haldol Dec +prn) until this past august when she got dx with MS and was hospitalized during which time Invega held and that and other psych meds accidentally not restarted (or delayed...). AH returned and since then, patients sister has been trying to get proper med regimen restarted (at one pt there was problem with clozapine rems). Reviewed list of meds and will change accordingly (increasing mag-oxide to 500mg which is her outpt dose and helped reduce need for clozapine) 2.Breast Worker discussed case [facility] who reports that pt was NOT given Haldol Dec or any other long acting med while there. She did increase her Clozapine to 175mg at 2pm and 275mg at 5pm. 12/22 remains with troubling AH, negative symptoms; continue treatment plan 12/26 pt reports that AH remain the same, no less intensity. However, but is much brighter, smiling at times, says she feels ok and has been out of her room attending groups...She agrees that this behavior may signify improvement at least in her mood, if not her ability to ignore voices. -continue current tx regimen -will consider increasing clozapine / more thought blocking today; AH remain quite debilitating and patient did not attend any groups today, unable to concentrate on very much due to internal preoccupation. Agrees to go up on Clozaril for now -patient reviewed her allergy list and says she has not allergic to trazodone nor she allergic to alpha lipoic acid, WARP DYEING TENDER 3 thyroid; also that pork allergy does not cross over to medications. -patient is a candidate for ECT if medication management does not resolve issue as she has refractory psychotic illness and negative symptoms 12/28 1st time patient said voices are little better, talking a little less; continue current treatment plan 12/29 mild improvements, patient showered, AH remains a little less talkative overall but still quite problematic, evidenced by her continued isolation, significant psychomotor retardation, speech latency; discussed speech latency and patient said she is just very distracted by the voices. Discussed medications and she agreed to go up on Clozaril. 12/30 Patient feeling extra tired this morning which she agrees is likely from last night's increased Clozaril. Not much has changed, voices remain quite problematic though less over the past couple days. She agrees to continue at this current new dose and see how things go. Will get labs 01/03 voices got a little worse this afternoon, telling her to keep the door open, which is reminiscent of AH prior to admission that proved controlling and hard for her to dismiss. Discussed case with her sister Griselda who is also healthcare proxy and present on the unit, as well as patient; discussed risks/side effects of medication regimen and all agreed to go up on Clozaril for now -though she has improved some, she is far from baseline, remains impaired and vulnerable to quickly decompensated further and taking direction from ; possibly because LA eyes are coming due 01/04 AH has intensified somewhat. Patient is coming due for long-acting injectables which may be contributing to recently worsening AH. Patient due for Haldol Decanoate 100 mg which she received today 01/04 Tomorrow patient due for Invega Sustenna 234 mg 01/04 AH has intensified somewhat. Patient is coming due for long-acting injectables which may be contributing to recently worsening AH. Patient due for Haldol Decanoate 100 mg which she received today 01/04 Tomorrow patient due for Invega Sustenna 234 mg 01/05 Voices a little less; received Invega sustenna 234mg 01/06 well dressed again; in groups more and a little more outward EKG obtained and Qtc wnl 01/07 presents better (dressed) and says AH a little better, however they are more directive and she thinks they are real, though was open to reality testing 01/08 same presentation; continue tx plan 01/09 patient says voices have become a little quieter and she is overall feeling more calm. She remains significantly internally preoccupied with speech latency. Will continue to monitor. 01/10 continue tx plan; considering increasing Clozapine further given little improvement since last increase. Could instead increase Haldol however, this is increases risks of EPS 01/11 Patient up early today, before breakfast, the 1st time since this admission she has not slept until lunch time. Patient does think she is feeling better and although AH remain, she says she has been able to ignore them. She still feels far from her regular self but overall thinks things are headed in the right direction. -Patient asked for Clozaril to be increased thinking it is probably necessary. Breast Worker Ambivalent since it is already higher than her home dose and she is a little bit tremulous; but further, she seems to be doing better, attending groups, speech is less latent and she is more naturally expressive. Breast Worker will give it 1 more day and if symptoms do not further improve will increase Clozaril 01/12 Patient continues to feel that AH is better than on admission but still quite problematic; discussed medication regimen and fact that patient has bilateral hand tremor which is likely a medication side effect. Because of this she agrees with chief underwriter's hesitation for increasing Clozaril for now; she is hoping that over the next few days things will get better but otherwise agrees to increase Clozaril further. -if no further improvement over next few days will increase Clozaril another 12.5mg -ordered labs/clozapine level -monitor tremor and signs for clozapine toxicity (none others thus far) 01/13 continue tx. 01/14 no change to clozaril dose due to pts sleepiness; continue monitor side effects; encourage fluids 01/16 spontaneously with less thought blocking. She agrees she has not as distracted as before. Given that patient has a history of catatonia and she has appeared a little catatonic, she agrees to trial of Ativan doses to see if it helps however initially dose did not seem to make much difference. 01/18 Discussed that perhaps Haldol is what is making her excessively tired since the doses increased; patient reports increased hand tremors which are intermittently visible. Discussed changing medication of Haldol 2 starting in the afternoon instead of the morning time to help mitigate daytime tiredness, to which she agrees. Although patient has side effects, she does not want Haldol lowered as she feels voices are getting a little better. -seems to take 2 steps forward and 1 step back; today more speech latency and thought blocking than previously. Continues to have significant negative symptoms and psychomotor retardation 01/19 reviewed labs and unexpectedly, clozapine/norclozapine levels are lower although dose has remained consistent; will get advice 01/20 Patient remains very tired even though the morning Haldol dose was moved to the afternoon, making it less likely that Haldol is what is been causing sedation. Discussed case with Dr. Louis and reviewed labs; he recommends trying patient on modafinil since this can be helpful for fatigue and also often used for fatigue secondary to multiple sclerosis, which may very well be a strong contributor to patient's constant tiredness. Discussed this with patient agrees with plan and will try modafinil -ordered Haldol level at next blood draw; if symptoms do not remit further will consider lowering Haldol and increasing Clozaril (trying to treat while avoid further EPS side effects) 01/21: continue current management and treatment plan. 01/22: Monitor BP and consider changing some medication administration times to avoid low BP. Encourage hydration and PO intake. continue current management and treatment plan. 01/23 modafinil somewhat helpful; wants to continue asks for 2nd afternoon dose to which chief underwriter agrees. Discussed ECT however patient does not want it at all. She remains with psychomotor retardation, blunted affect but says auditory hallucinations remain a little less and easier to ignore; discussed fatigue as possible combination from medications and MS 01/24 Patient reports that auditory hallucinations remain lower. Still with significant psychomotor retardation and blunted affect. Craig modafinil did not work well today; will continue current dose and increase if needed. Continue discuss increasing Clozaril however chief underwriter is concerned for worsening EPS side effects and blunted emotions. She agrees to keep regimen as is for now 01/25 try modafinil 200 mg 1 time dose however patient felt it was too much; wants to go back to the 100 mg b.i.d. -patient has history of catatonia; of note did give patient a trial of Ativan however she said it make any difference and none observed and she is already on clonazepam daily 01/26 seems to be slowly improving; seems to be benefitting from modafinil; will continue; team working with outpatient team on disposition planning PLAN: CV Q 15 minute checks Continue Modafinil 100mg daily and an afternoon for daytime sedation, secondary to both antipsychotic medication and MS fatigue; will consider increasing Clonazepam 1mg qhs . Clozaril 125 mg 14:00 Continue Clozaril 325 mg q.h.s.; increased on 01/03 (used to be on 250mg at home; at [facility] increased 275) Received Haldol Decanoate 100 mg on 01/04 (last received 12/21) given every q.2 weeks Magnesium oxide 500 mg Q 17:00; for treatment for psychotic symptoms Haldol 5 mg b.i.d. p.r.n. Continue Haldol 10 mg b.i.d. for now given patient is behind on Haldol and suffering from AH; plan will be to taper and eventually DC ReceivedInvega Sustenna 234 mg on 01/05 Q30 days- last dose administered 12/06/23 Thyroid 60 mg daily Omeprazole [address] 240mg BID for MS involve guardian in treatment discharge planning with team Patient educated on: diagnosis, medication risk/benefits and therapeutic strategies Informed Consent: understands Reason for continued inpatient stay Substantial Risk for: stable for discharge, rapid decompensation and med/psych decompensation Time Spent With Patient Time: Total time managing care of this patient today ____ minutes.
[2024-01-27] MEDS: cloZAPine 100 MG, cloZAPine 25 MG 125 MG PO (13:42)
[2024-01-27] MEDS: Haloperidol Lactate Oral Conc 10 MG/5 ML ORAL.CONC PO ×2 (13:51→20:48)
[2024-01-27] MEDS: Acetaminophen 325 MG TABLET 650 MG PO (13:51)
[2024-01-27] MEDS: clonazePAM 1 MG TABLET PO ×2 (18:12→20:40)
[2024-01-27 20:00] VITALS: BP 133/90; PULSE 127; RESP 18; TEMP 36.4; O2SAT 98
[2024-01-27] MEDS: Magnesium Oxide 400 MG TABLET 500 MG PO (20:42)
[2024-01-27] MEDS: Docusate Sodium 100 MG CAPSULE PO (20:43)
[2024-01-28] MEDS: Omeprazole 20 MG CAPSULE.DR PO (06:31)
[2024-01-28] MEDS: Thyroid,Pork 30 MG TABLET 60 MG PO (06:31)
[2024-01-28 07:57] VITALS: BP 114/69; PULSE 87; RESP 16; TEMP 37.2; O2SAT 97
[2024-01-28] MEDS: Multivitamin TABLET 1 TAB PO (09:23)
[2024-01-28] MEDS: Benztropine Mesylate 1 MG TABLET PO ×2 (09:23→21:16)
[2024-01-28] MEDS: Loratadine 10 MG TABLET PO (09:24)
[2024-01-28] MEDS: Folic Acid 1 MG TABLET PO (09:24)
[2024-01-28] MEDS: modafiniL 100 MG TABLET PO ×2 (09:24→13:38)
[2024-01-28] MEDS: Propranolol HCL 10 MG TABLET PO ×2 (09:24→21:17)
[2024-01-28 14:04] LABS: Neut%MD 60.2 %; Neutrophils Absolute Auto 3.4 x10*3/uL (2.0-8.3); WBCANC 5.7 X10*3/uL
[2024-01-28] MEDS: Haloperidol Lactate Oral Conc 10 MG/5 ML ORAL.CONC PO ×2 (15:53→21:15)
[2024-01-28] MEDS: cloZAPine 100 MG, cloZAPine 25 MG 125 MG PO (15:53)
[2024-01-28] MEDS: clonazePAM 1 MG TABLET PO ×2 (17:51→21:16)
[2024-01-28 20:00] VITALS: BP 110/59; PULSE 112; RESP 16; TEMP 36.4; O2SAT 98
[2024-01-28] MEDS: Magnesium Oxide 400 MG TABLET 500 MG PO (21:15)
[2024-01-28] MEDS: Docusate Sodium 100 MG CAPSULE PO (21:16)
[2024-01-28 21:17] VITALS: BP 101/59; PULSE 112
--- NOTE | 2024-01-28 22:30 | PC.NURSE ---
Paul is refusing to sleep on her bed at this time. She states the voices say I have to sleep on the floor. Charge nurse Mahamed Tristan notified; per his advice, myself and [facility] attempted to put her mattress on the floor so she could sleep there. Paul became visibly, and said The voices say it has to be the floor. Not a mattress. Or bad things will happen. In spite of our pleas, she would not sleep on the mattress. Although this internal communications writer loathes leaving Paul on the floor, I was able to talk her into allowing me to place multiple blankets down as a pallet so she might have some padding between herself and the tile. This is clearly not ideal, but Paul became so distressed when anything else was suggested that this internal communications writer did not want to cause more anxiety.
--- NOTE | 2024-01-28 23:00 | HO.PSYCHPN ---
Subjective Subjective Date of Service: 01/28/24 Reason For Visit: SCHIZOPHRENIA, SI Interim History: Met with patient; discussed with team Patient reports that she is overall doing better and that auditory hallucinations remain quieter and overall more easy to ignore. She remains with blunted affect and slow moving but patient feels that she is good enough to return home. Discussed returning to correction; patient feels that she can attend the day program maybe twice a week; conventional mortgage underwriter agrees that this is an appropriate start to reintegrating. Mental Status Exam Mental Status Exam Narrative: Pt is alert and oriented; behavior is cooperative, friendly, calm; patient is not in distress; dressed in casual attire and neatly groomed; mood is described as good and affect congruent, a little more expressive, and less blunted; eye contact appropriate and a little more naturally expressive with less of a blank stare; Speech with thought blocking and continued latency but less so and more spontaneous; still psychomotor retardation present but less; thought process is goal directed, logical and organized; denies delusional thinking and none expressed; no SI/no HI. AH remains but more subdued Patients insight and judgment though much improved and adequate Diagnostics Vital Signs (24Hr): Vital Signs - 24 hr 01/28/24 07:57 01/28/24 21:17 Temperature 98.9 F Pulse Rate 87 112 H Respiratory Rate 16 Blood Pressure 114/69 101/59 L Pulse Oximetry 97 Oxygen Delivery Method Room Air BMI result Body Mass Index 31.4 Labs 01/16/24 11:32 Labs: Laboratory Results - last 48 hr 01/28/24 13:56 Absolute Neuts (auto) 3.4 Medications Medications Current Medications Acetaminophen (Acetaminophen 325 Mg Tablet) 650 mg PO Q6H PRN PRN Reason: Pain, Mild (Pain Scale 1-3) Last Admin: 01/27/24 13:51 Dose: 650 mg Al Hydroxide/Mg Hydroxide (Magnesium Hydrox/Alum Hydrox 30 Ml Oral.Susp) 30 ml PO Q6H PRN PRN Reason: Heartburn/Nausea Last Admin: 01/24/24 20:23 Dose: 30 ml Albuterol Sulfate (Albuterol Sulfate 90 Mcg 8 Gm Inhaler) 2 puff INHALE RQ4H PRN PRN Reason: Shortness of Breath Last Admin: 01/22/24 16:14 Dose: 2 puff Benztropine Mesylate (Benztropine Mesylate 1 Mg Tablet) 1 mg PO BID [facility] Last Admin: 01/28/24 21:16 Dose: 1 mg Clonazepam (Clonazepam 0.5 Mg Tablet) 0.5 mg PO BID PRN PRN Reason: Anxiety Last Admin: 01/27/24 01:46 Dose: 0.5 mg Clonazepam (Clonazepam 1 Mg Tablet) 1 mg PO BEDTIME [facility] Last Admin: 01/28/24 21:16 Dose: 1 mg Clonazepam (Clonazepam 1 Mg Tablet) 1 mg PO DAILY@1700 [facility] Last Admin: 01/28/24 17:51 Dose: 1 mg Clozapine 100 mg/ Clozapine 25 (mg) 125 mg PO 1400 [facility] Last Admin: 01/28/24 15:53 Dose: 125 mg Clozapine 300 mg/ Clozapine 50 (mg) 350 mg PO BEDTIME [facility] Last Admin: 01/28/24 21:16 Dose: 350 mg Docusate Sodium (Docusate Sodium 100 Mg Capsule) 100 mg PO BID [facility] Last Admin: 01/28/24 21:16 Dose: 100 mg Fluticasone Propionate (Fluticasone Propionate Nasal 16 Gm [place]) 1 spray NOSTRIL-B DAILY PRN PRN Reason: nasal congestion Folic Acid (Folic Acid 1 Mg Tablet) 1 mg PO DAILY [facility] Last Admin: 01/28/24 09:24 Dose: 1 mg Haloperidol Decanoate (Haloperidol Decanoate 50 Mg/Ml Vial) 100 mg IM Q14D [facility] Last Admin: 01/19/24 14:26 Dose: 100 mg Haloperidol Lactate (Haloperidol Lactate Oral Conc 10 Mg/5 Ml Oral.Conc) 5 mg PO BID PRN PRN Reason: agitation Last Admin: 12/30/23 22:13 Dose: 5 mg Haloperidol Lactate (Haloperidol Lactate Oral Conc 10 Mg/5 Ml Oral.Conc) 10 mg PO BID@1400,2100 [facility] Last Admin: 01/28/24 21:15 Dose: 10 mg Hydroxyzine HCl (Hydroxyzine Hcl 25 Mg Tablet) 25 mg PO Q6H PRN PRN Reason: Anxiety Last Admin: 01/27/24 01:46 Dose: 25 mg Loratadine (Loratadine 10 Mg Tablet) 10 mg PO DAILY [facility] Last Admin: 01/28/24 09:24 Dose: 10 mg Magnesium Hydroxide (Milk Of Magnesia 30 Ml Oral.Susp) 30 ml PO DAILY PRN PRN Reason: Constipation Last Admin: 01/25/24 11:48 Dose: 30 ml Magnesium Oxide (Magnesium Oxide 400 Mg Tablet) 500 mg PO BEDTIME [facility] Last Admin: 01/28/24 21:15 Dose: 500 mg Modafinil (Modafinil 100 Mg Tablet) 100 mg PO BID@0900,1300 [facility] Last Admin: 01/28/24 13:38 Dose: 100 mg Multivitamins/Vitamin C (Multivitamin Tablet) 1 tab PO DAILY [facility] Last Admin: 01/28/24 09:23 Dose: 1 tab Patient Own ( (Tecfidera Dr 240 Mg)) 240 mg PO BID [facility] Last Admin: 01/28/24 21:14 Dose: 240 mg Omeprazole (Omeprazole 20 Mg Capsule.Dr) 20 mg PO DAILY@0630 [facility] Last Admin: 01/28/24 06:31 Dose: 20 mg Paliperidone Palmitate (Paliperidone Palmitate 234 Mg/1.5 Ml Syringe) 234 mg IM Q30D [facility] Last Admin: 01/06/24 13:54 Dose: 234 mg Polyethylene Glycol (Polyethylene Glycol 3350 17 Gm Powd.Pack) 17 gm PO DAILY PRN PRN Reason: ongoing Constipation Last Admin: 01/25/24 13:20 Dose: 17 gm Propranolol HCl (Propranolol Hcl 10 Mg Tablet) 10 mg PO BID [facility]; Protocol Last Admin: 01/28/24 21:17 Dose: 10 mg Thyroid (Thyroid,Pork 30 Mg Tablet) 60 mg PO DAILY@0600 [facility] Last Admin: 01/28/24 06:31 Dose: 60 mg Vitamin A/Vitamin D (A And D Ointment 56.7 Gm Tube) 1 appl TOPICAL BID [facility]; Protocol Last Admin: 01/28/24 21:14 Dose: Not Given Allergies Allergies Allergy/AdvReac Type Severity Reaction Status Date / Time Pork/Porcine Containing Allergy Unknown RASH Verified 12/28/23 14:54 Products [PORK/PORCINE CONTAINING PRODUCTS] ALPHA LIPOIC ACID Allergy Unknown Uncoded 10/17/23 02:24 SENIOR MARKETING MANAGER-3 THYROID TOXICITY Allergy Unknown Uncoded 10/17/23 02:24 Assessment & Plan Assessment & Plan (1) Schizoaffective disorder: Qualifiers: Schizoaffective disorder type: depressive Qualified Code(s): F25.1 - Schizoaffective disorder, depressive type Status: Acute Code(s): F25.9 - Schizoaffective disorder, unspecified (2) PTSD (post-traumatic stress disorder): Status: Acute Code(s): F43.10 - Post-traumatic stress disorder, unspecified (3) Multiple sclerosis: Status: Acute Code(s): G35 - Multiple sclerosis (4) Mild persistent asthma: Status: Acute Code(s): J45.30 - Mild persistent asthma, uncomplicated Plan 38-year-old female, history of schizoaffective disorder, direct admission from [facility], where patient had presented with worsening auditory hallucinations and SI. Patient is resident at [facility] for around 10 years. Patient was recently discharged from [facility] where she was admitted on 12/07. She has had several recent admissions to [facility] she was [place] [facility] [place] and then again on 11/07/2023. [facility], with some information available in the chart, but details around actual medications appears to be missing. Patient states that she received her Haldol Decanoate injection 6 days ago while in [facility]. patient reports today hearing voices telling her to go right to go left. Pt stares blankly at times; appears to be internally preoccupied. She is difficult to engage in interview; she appears anxious. denies SI or HI This conventional mortgage underwriter spoke to Griselda DONYA, patient's guardian: Her concerns are to try to help Anjali get back to baseline she had 2 years stability while at the correction. She reports that there have been problems with medication, getting the correct medication on time due to a number of factors difficulty with the rims certification, difficulty with the [facility] not having the correct equipment when her injection was done was due, and after different hospitalizations medication list at discharge was not complete and the residential home was unable to correct her medication list. Griselda wonders if her sister could be placed in a long-term care nursing facility for more consistent care. Hospital course: 12/19/23 continue tx plan, hold haldol deconoate until can verify last given dose from [facility] or [facility], encourage PO intake 12/20/23 cont tx 12/20 pt reports continued incessant AH, however they are only saying things like go straight...go left...go right and no longer saying mean, provoking things. Pt asked for higher Haldol dose saying she was supposed to have it available but it was only started yesterday. She says that until about a month ago, she was doing quite well, but then her medications got changed/missed and since then she's decompensated with AH. She's not sure why her medications were changed. To her recollection she recieved Haldol Dec when she was at [facility] about a week ago. -Pt gave permission to call sister/HCP and gave Griselda's phone number. 12/21 Patient continues to report auditory hallucinations however they are still just giving her directions to follow., go left, go right.. Which she says is an improvement and they are no longer saying nasty things. Patient remains convinced that she received Haldol Decanoate at [facility]; however she accepts the [facility] providers report to this conventional mortgage underwriter that she did not receive it and agrees to get a now. Collateral: 1.[employer] discussed case with patient's sister Griselda: pt doing well on regimen (clozapine, invega sustenna, Haldol Dec +prn) until this past august when she got dx with MS and was hospitalized during which time Invega held and that and other psych meds accidentally not restarted (or delayed...). AH returned and since then, patients sister has been trying to get proper med regimen restarted (at one pt there was problem with clozapine rems). Reviewed list of meds and will change accordingly (increasing mag-oxide to 500mg which is her outpt dose and helped reduce need for clozapine) 2.Manager [employer] [facility] that [facility] was NOT given Haldol Dec or any other long acting med while there. She did increase her Clozapine to 175mg at 2pm and 275mg at 5pm. 12/22 remains with troubling AH, negative symptoms; continue treatment plan 12/26 pt reports that AH remain the same, no less intensity. However, but is much brighter, smiling at times, says she feels ok and has been out of her room attending groups...She agrees that this behavior may signify improvement at least in her mood, if not her ability to ignore voices. -continue current tx regimen -will consider increasing clozapine 12/27 more thought blocking today; AH remain quite debilitating and patient did not attend any groups today, unable to concentrate on very much due to internal preoccupation. 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 -patient is a candidate for ECT if medication management does not resolve issue as she has refractory psychotic illness and negative symptoms 12/28 1st time patient said voices are little better, talking a little less; continue current treatment plan 12/29 mild improvements, patient showered, AH remains a little less talkative overall but still quite problematic, evidenced by her continued isolation, significant psychomotor retardation, speech latency; discussed speech latency and patient said she is just very distracted by the voices. Discussed medications and she agreed to go up on Clozaril. 12/30 Patient feeling extra tired this morning which she agrees is likely from last night's increased Clozaril. Not much has changed, voices remain quite problematic though less over the past couple days. She agrees to continue at this current new dose and see how things go. Will get labs 01/03 voices got a little worse this afternoon, telling her to keep the door open, which is reminiscent of AH prior to admission that proved controlling and hard for her to dismiss. Discussed case with her sister Griselda who is also healthcare proxy and present on the unit, as well as patient; discussed risks/side effects of medication regimen and all agreed to go up on Clozaril for now -though she has improved some, she is far from baseline, remains impaired and vulnerable to quickly decompensated further and taking direction from AH; possibly because LA eyes are coming due 01/04 AH has intensified somewhat. Patient is coming due for long-acting injectables which may be contributing to recently worsening AH. Patient due for Haldol Decanoate 100 mg which she received today 01/04 Tomorrow patient due for Invega Sustenna 234 mg 01/04 AH has intensified somewhat. Patient is coming due for long-acting injectables which may be contributing to recently worsening AH. Patient due for Haldol Decanoate 100 mg which she received today 01/04 Tomorrow patient due for Invega Sustenna 234 mg 6/13 Voices a little less; received Invega sustenna 234mg 01/06 well dressed again; in groups more and a little more outward EKG obtained and Qtc wnl 01/07 presents better (dressed) and says AH a little better, however they are more directive and she thinks they are real, though was open to reality testing 01/08 same presentation; continue tx plan 01/09 patient says voices have become a little quieter and she is overall feeling more calm. She remains significantly internally preoccupied with speech latency. Will continue to monitor. 01/10 continue tx plan; considering increasing Clozapine further given little improvement since last increase. Could instead increase Haldol however, this is increases risks of EPS 01/11 Patient up early today, before breakfast, the 1st time since this admission she has not slept until lunch time. Patient does think she is feeling better and although AH remain, she says she has been able to ignore them. She still feels far from her regular self but overall thinks things are headed in the right direction. -Patient asked for Clozaril to be increased thinking it is probably necessary. Manager [employer] Ambivalent since it is already higher than her home dose and she is a little bit tremulous; but further, she seems to be doing better, attending groups, speech is less latent and she is more naturally expressive. [employer] will give it 1 more day and if symptoms do not further improve will increase Clozaril 01/12 Patient continues to feel that AH is better than on admission but still quite problematic; discussed medication regimen and fact that patient has bilateral hand tremor which is likely a medication side effect. Because of this she agrees with conventional mortgage underwriter's hesitation for increasing Clozaril for now; she is hoping that over the next few days things will get better but otherwise agrees to increase Clozaril further. -if no further improvement over next few days will increase Clozaril another 12.5mg -ordered labs/clozapine level -monitor tremor and signs for clozapine toxicity (none others thus far) 01/13 continue tx. 01/14 no change to clozaril dose due to pts sleepiness; continue monitor side effects; encourage fluids 01/16 spontaneously with less thought blocking. She agrees she has not as distracted as before. Given that patient has a history of catatonia and she has appeared a little catatonic, she agrees to trial of Ativan doses to see if it helps however initially dose did not seem to make much difference. 01/18 Discussed that perhaps Haldol is what is making her excessively tired since the doses increased; patient reports increased hand tremors which are intermittently visible. Discussed changing medication of Haldol 2 starting in the afternoon instead of the morning time to help mitigate daytime tiredness, to which she agrees. Although patient has side effects, she does not want Haldol lowered as she feels voices are getting a little better. -seems to take 2 steps forward and 1 step back; today more speech latency and thought blocking than previously. Continues to have significant negative symptoms and psychomotor retardation 01/19 reviewed labs and unexpectedly, clozapine/norclozapine levels are lower although dose has remained consistent; will get advice 01/20 Patient remains very tired even though the morning Haldol dose was moved to the afternoon, making it less likely that Haldol is what is been causing sedation. Discussed case with Dr. Louis and reviewed labs; he recommends trying patient on modafinil since this can be helpful for fatigue and also often used for fatigue secondary to multiple sclerosis, which may very well be a strong contributor to patient's constant tiredness. Discussed this with patient agrees with plan and will try modafinil -ordered Haldol level at next blood draw; if symptoms do not remit further will consider lowering Haldol and increasing Clozaril (trying to treat while avoid further EPS side effects) 01/21: continue current management and treatment plan. 01/22: Monitor BP and consider changing some medication administration times to avoid low BP. Encourage hydration and PO intake. continue current management and treatment plan. 01/23 modafinil somewhat helpful; wants to continue asks for 2nd afternoon dose to which conventional mortgage underwriter agrees. Discussed ECT however patient does not want it at all. She remains with psychomotor retardation, blunted affect but says auditory hallucinations remain a little less and easier to ignore; discussed fatigue as possible combination from medications and MS 01/24 Patient reports that auditory hallucinations remain lower. Still with significant psychomotor retardation and blunted affect. [place] modafinil did not work well today; will continue current dose and increase if needed. Continue discuss increasing Clozaril however conventional mortgage underwriter is concerned for worsening EPS side effects and blunted emotions. She agrees to keep regimen as is for now 01/25 try modafinil 200 mg 1 time dose however patient felt it was too much; wants to go back to the 100 mg b.i.d. -patient has history of catatonia; of note did give patient a trial of Ativan however she said it make any difference and none observed and she is already on clonazepam daily 01/26 seems to be slowly improving; seems to be benefitting from modafinil; will continue; team working with outpatient team on disposition planning 01/27 overall patient is doing better on admission. She remains with blunted affect, speech latency and psychomotor retardation however each is reduced and patient feels that she is able to return home. AH remain but much more subdued and easier to ignore. Patient feels modafinil has been helping. She feels ready to return home. She is anxious however about requirements at correction. [employer] agrees that she will be able to participate with some of the activities and responsibilities but in a limited amount and both agreed that attending to day program activities twice a week is sufficient for now.. Patient is not in imminent risk for harm to self or others and is appropriate to return to the community for treatment. Regarding activity at the correction: While patient is doing better than on admission she is not at baseline. At this time she needs set limitations on expectations/requirements for correction activities/responsibilities which can be gradually increased at her outpatient psychiatrist's determination. Patient has refractory schizophrenia; she is on 3 antipsychotics at high doses which are likely contributing to patients energy level, struggles with feeling sedated, slower movements and emotional blunting. Hopefully as patient continues to progress her medication doses can be lowered back to former levels. She also been newly diagnosed with Muscular Sclerosis which can significantly contribute to patient's energy level and struggles with feeling sedated. She is also not back to her baseline. Currently it is difficult to determine what patient will be capable of and unclear when when she will be capable of more. At this time conventional mortgage underwriter finds it reasonable for patient to attend her day program 2 times a week. This limitation should remain for the foreseeable future. Patient can do more if she wants to. However, Longterm expectations should only be increased incrementally and at the discretion of her outpatient psychiatric provider. PLAN: CV Q 15 minute checks Continue Modafinil 100mg daily and an afternoon for daytime sedation, secondary to both antipsychotic medication and MS fatigue; will consider increasing Clonazepam 1mg qhs . Clozaril 125 mg 14:00 Continue Clozaril 325 mg q.h.s.; increased on 01/03 (used to be on 250mg at home; at [facility] increased 275) Received Haldol Decanoate 100 mg on 01/04 (last received 12/21) given every q.2 weeks Magnesium oxide 500 mg Q 17:00; for treatment for psychotic symptoms Haldol 5 mg b.i.d. p.r.n. Continue Haldol 10 mg b.i.d. for now given patient is behind on Haldol and suffering from AH; plan will be to taper and eventually DC ReceivedInvega Sustenna 234 mg on 01/05 Q30 days- last dose administered 12/06/23 Thyroid 60 mg daily Omeprazole [address] 240mg BID for MS involve guardian in treatment discharge planning with team Patient educated on: diagnosis, medication risk/benefits and therapeutic strategies Informed Consent: understands Reason for continued inpatient stay Substantial Risk for: stable for discharge Time Spent With Patient Time: Total time managing care of this patient today ____ minutes.
[2024-01-29] MEDS: Thyroid,Pork 30 MG TABLET 60 MG PO (06:35)
[2024-01-29] MEDS: Omeprazole 20 MG CAPSULE.DR PO (06:35)
[2024-01-29 08:00] VITALS: BP 95/61; PULSE 97; RESP 16; TEMP 36.4; O2SAT 100
--- NOTE | 2024-01-29 08:08 | P.PNPSI_ITS ---
Subjective Subjective Date of Service: 01/29/24 Reason For Visit: SCHIZOPHRENIA, SI Interim History: met with patient. Discussed with nursing. Overall no management issues. Accepting medications as per [place] order. Patient reports things are okay today. Denies concern around auditory hallucinations. No med concerns. Feeling safe Medication Compliance: Yes Side effects from medications: No Attending Groups: No Review of Systems Acute medical concerns: No Mental Status Exam Mental Status Exam Narrative: Pt is alert and oriented; behavior is cooperative, friendly, a little more engaged; patient is not in distress; dressed in casual attire and neatly groomed; mood is described as better and affect congruent, a little more expressive, and less blunted; eye contact appropriate and a little more naturally expressive with less of a blank stare; Speech with thought blocking continued latency but less so and more spontaneous; still psychomotor retardation present; thought process is goal directed and seems organized; denies delusional thinking and none expressed; no SI/no HI. Denied today AH Patients insight and judgment though remains impaired but much improved and adequate Diagnostics Vital Signs (24Hr): Vital Signs - 24 hr 01/28/24 20:00 01/28/24 21:17 Temperature 97.5 F Pulse Rate 112 H 112 H Respiratory Rate 16 Blood Pressure 110/59 L 101/59 L Pulse Oximetry 98 Oxygen Delivery Method Room Air BMI result Body Mass Index 31.4 Labs 01/16/24 11:32 Labs: Laboratory Results - last 48 hr 01/28/24 13:56 Absolute Neuts (auto) 3.4 Medications Medications Current Medications Acetaminophen (Acetaminophen 325 Mg Tablet) 650 mg PO Q6H PRN PRN Reason: Pain, Mild (Pain Scale 1-3) Last Admin: 01/27/24 13:51 Dose: 650 mg Al Hydroxide/Mg Hydroxide (Magnesium Hydrox/Alum Hydrox 30 Ml Oral.Susp) 30 ml PO Q6H PRN PRN Reason: Heartburn/Nausea Last Admin: 01/24/24 20:23 Dose: 30 ml Albuterol Sulfate (Albuterol Sulfate 90 Mcg 8 Gm Inhaler) 2 puff INHALE RQ4H PRN PRN Reason: Shortness of Breath Last Admin: 01/22/24 16:14 Dose: 2 puff Benztropine Mesylate (Benztropine Mesylate 1 Mg Tablet) 1 mg PO BID LEW Last Admin: 07/05/24 21:16 Dose: 1 mg Clonazepam (Clonazepam 0.5 Mg Tablet) 0.5 mg PO BID PRN PRN Reason: Anxiety Last Admin: 01/27/24 01:46 Dose: 0.5 mg Clonazepam (Clonazepam 1 Mg Tablet) 1 mg PO BEDTIME [facility] Last Admin: 01/28/24 21:16 Dose: 1 mg Clonazepam (Clonazepam 1 Mg Tablet) 1 mg PO DAILY@1700 [facility] Last Admin: 01/28/24 17:51 Dose: 1 mg Clozapine 100 mg/ Clozapine 25 (mg) 125 mg PO 1400 [facility] Last Admin: 01/28/24 15:53 Dose: 125 mg Clozapine 300 mg/ Clozapine 50 (mg) 350 mg PO BEDTIME [facility] Last Admin: 01/28/24 21:16 Dose: 350 mg Docusate Sodium (Docusate Sodium 100 Mg Capsule) 100 mg PO BID [facility] Last Admin: 01/28/24 21:16 Dose: 100 mg Fluticasone Propionate (Fluticasone Propionate Nasal 16 Gm Mcbain) 1 spray NOSTRIL-B DAILY PRN PRN Reason: nasal congestion Folic Acid (Folic Acid 1 Mg Tablet) 1 mg PO DAILY [facility] Last Admin: 01/28/24 09:24 Dose: 1 mg Haloperidol Decanoate (Haloperidol Decanoate 50 Mg/Ml Vial) 100 mg IM Q14D [facility] Last Admin: 01/19/24 14:26 Dose: 100 mg Haloperidol Lactate (Haloperidol Lactate Oral Conc 10 Mg/5 Ml Oral.Conc) 5 mg PO BID PRN PRN Reason: agitation Last Admin: 12/30/23 22:13 Dose: 5 mg Haloperidol Lactate (Haloperidol Lactate Oral Conc 10 Mg/5 Ml Oral.Conc) 10 mg PO BID@1400,2100 [facility] Last Admin: 01/28/24 21:15 Dose: 10 mg Hydroxyzine HCl (Hydroxyzine Hcl 25 Mg Tablet) 25 mg PO Q6H PRN PRN Reason: Anxiety Last Admin: 01/27/24 01:46 Dose: 25 mg Loratadine (Loratadine 10 Mg Tablet) 10 mg PO DAILY [facility] Last Admin: 01/28/24 09:24 Dose: 10 mg Magnesium Hydroxide (Milk Of Magnesia 30 Ml Oral.Susp) 30 ml PO DAILY PRN PRN Reason: Constipation Last Admin: 01/25/24 11:48 Dose: 30 ml Magnesium Oxide (Magnesium Oxide 400 Mg Tablet) 500 mg PO BEDTIME [facility] Last Admin: 01/28/24 21:15 Dose: 500 mg Modafinil (Modafinil 100 Mg Tablet) 100 mg PO BID@0900,1300 [facility] Last Admin: 01/28/24 13:38 Dose: 100 mg Multivitamins/Vitamin C (Multivitamin Tablet) 1 tab PO DAILY [facility] Last Admin: 01/28/24 09:23 Dose: 1 tab Patient Own ( (Tecfidera Dr 240 Mg)) 240 mg PO BID [facility] Last Admin: 01/28/24 21:14 Dose: 240 mg Omeprazole (Omeprazole 20 Mg Capsule.Dr) 20 mg PO DAILY@0630 [facility] Last Admin: 01/29/24 06:35 Dose: 20 mg Paliperidone Palmitate (Paliperidone Palmitate 234 Mg/1.5 Ml Syringe) 234 mg IM Q30D [facility] Last Admin: 01/06/24 13:54 Dose: 234 mg Polyethylene Glycol (Polyethylene Glycol 3350 17 Gm Powd.Pack) 17 gm PO DAILY PRN PRN Reason: ongoing Constipation Last Admin: 01/25/24 13:20 Dose: 17 gm Propranolol HCl (Propranolol Hcl 10 Mg Tablet) 10 mg PO BID [facility]; Protocol Last Admin: 01/28/24 21:17 Dose: 10 mg Thyroid (Thyroid,Pork 30 Mg Tablet) 60 mg PO DAILY@0600 [facility] Last Admin: 01/29/24 06:35 Dose: 60 mg Vitamin A/Vitamin D (A And D Ointment 56.7 Gm Tube) 1 appl TOPICAL BID [facility]; Protocol Last Admin: 01/28/24 21:14 Dose: Not Given Allergies Allergies Allergy/AdvReac Type Severity Reaction Status Date / Time Pork/Porcine Containing Allergy Unknown RASH Verified 12/28/23 14:54 Products [PORK/PORCINE CONTAINING PRODUCTS] ALPHA LIPOIC ACID Allergy Unknown Uncoded 10/17/23 02:24 TECHNICAL DELIVERY MANAGER-3 THYROID TOXICITY Allergy Unknown Uncoded 10/17/23 02:24 Assessment & Plan Assessment & Plan (1) Schizoaffective disorder: Qualifiers: Schizoaffective disorder type: depressive Qualified Code(s): F25.1 - Schizoaffective disorder, depressive type Status: Acute Code(s): F25.9 - Schizoaffective disorder, unspecified (2) PTSD (post-traumatic stress disorder): Status: Acute Code(s): F43.10 - Post-traumatic stress disorder, unspecified (3) Multiple sclerosis: Status: Acute Code(s): G35 - Multiple sclerosis (4) Mild persistent asthma: Status: Acute Code(s): J45.30 - Mild persistent asthma, uncomplicated Plan 38-year-old female, history of schizoaffective disorder, direct admission from [facility], where patient had presented with worsening auditory hallucinations and SI. Patient is resident at [facility] for around 10 years. Patient was recently discharged from [facility] where she was admitted on 12/07. She has had several recent admissions to [facility] she was admitted to [facility] on 10/17/2023 and then again on 11/07/2023. Pt has a [facility] and [facility] order in place, with some information available in the chart, but details around actual medications appears to be missing. Patient states that she received her Haldol Decanoate injection 6 days ago while in [facility]. patient reports today hearing voices telling her to go right to go left. Pt stares blankly at times; appears to be internally preoccupied. She is difficult to engage in interview; she appears anxious. denies SI or HI This typewriter assembler spoke to Griselda NAQVI, patient's guardian: Her concerns are to try to help Anjali get back to baseline she had 2 years stability while at the [facility]. She reports that there have been problems with medication, getting the correct medication on time due to a number of factors difficulty with the rims certification, difficulty with the [facility] not having the correct equipment when her injection was done was due, and after different hospitalizations medication list at discharge was not complete and the residential home was unable to correct her medication list. Griselda wonders if her sister could be placed in a long-term care nursing facility for more consistent care. Hospital course: 12/19/23 continue tx plan, hold haldol deconoate until can verify last given dose from [facility] or [facility], encourage PO intake 12/20/23 cont tx 12/20 pt reports continued incessant AH, however they are only saying things like go straight...go left...go right and no longer saying mean, provoking things. Pt asked for higher Haldol dose saying she was supposed to have it available but it was only started yesterday. She says that until about a month ago, she was doing quite well, but then her medications got changed/missed and since then she's decompensated with AH. She's not sure why her medications were changed. To her recollection she recieved Haldol Dec when she was at [facility] about a week ago. -Pt gave permission to call sister/HCP and gave Griselda's phone number. 12/21 Patient continues to report auditory hallucinations however they are still just giving her directions to follow., go left, go right.. Which she says is an improvement and they are no longer saying nasty things. Patient remains convinced that she received Haldol Decanoate at [facility]; however she accepts the [facility] providers report to this typewriter assembler that she did not receive it and agrees to get a now. Collateral: 1.Lead Oracle Developer discussed case with patient's sister Griselda: pt doing well on regimen (clozapine, invega sustenna, Haldol Dec +prn) until this past august when she got dx with MS and was hospitalized during which time Invega held and that and other psych meds accidentally not restarted (or delayed...). AH returned and since then, patients sister has been trying to get proper med regimen restarted (at one pt there was problem with clozapine rems). Reviewed list of meds and will change accordingly (increasing mag-oxide to 500mg which is her outpt dose and helped reduce need for clozapine) 2.Lead Oracle Developer discussed case [facility] who reports that pt was NOT given Haldol Dec or any other long acting med while there. She did increase her Clozapine to 175mg at 2pm and 275mg at 5pm. 12/22 remains with troubling AH, negative symptoms; continue treatment plan 12/26 pt reports that AH remain the same, no less intensity. However, but is much brighter, smiling at times, says she feels ok and has been out of her room attending groups...She agrees that this behavior may signify improvement at least in her mood, if not her ability to ignore voices. -continue current tx regimen -will consider increasing clozapine 6/ more thought blocking today; AH remain quite debilitating and patient did not attend any groups today, unable to concentrate on very much due to internal preoccupation. Agrees to go up on Clozaril for now -patient reviewed her allergy list and says she has not allergic to trazodone nor she allergic to alpha lipoic acid, TECHNICAL DELIVERY MANAGER 3 thyroid; also that pork allergy does not cross over to medications. -patient is a candidate for ECT if medication management does not resolve issue as she has refractory psychotic illness and negative symptoms 12/28 1st time patient said voices are little better, talking a little less; continue current treatment plan 12/29 mild improvements, patient showered, AH remains a little less talkative overall but still quite problematic, evidenced by her continued isolation, significant psychomotor retardation, speech latency; discussed speech latency and patient said she is just very distracted by the voices. Discussed medications and she agreed to go up on Clozaril. 12/30 Patient feeling extra tired this morning which she agrees is likely from last night's increased Clozaril. Not much has changed, voices remain quite problematic though less over the past couple days. She agrees to continue at this current new dose and see how things go. Will get labs 01/03 voices got a little worse this afternoon, telling her to keep the door open, which is reminiscent of AH prior to admission that proved controlling and hard for her to dismiss. Discussed case with her sister Griselda who is also healthcare proxy and present on the unit, as well as patient; discussed risks/side effects of medication regimen and all agreed to go up on Clozaril for now -though she has improved some, she is far from baseline, remains impaired and vulnerable to quickly decompensated further and taking direction from ; possibly because LA eyes are coming due 01/04 AH has intensified somewhat. Patient is coming due for long-acting injectables which may be contributing to recently worsening AH. Patient due for Haldol Decanoate 100 mg which she received today 01/04 Tomorrow patient due for Invega Sustenna 234 mg 01/04 AH has intensified somewhat. Patient is coming due for long-acting injectables which may be contributing to recently worsening AH. Patient due for Haldol Decanoate 100 mg which she received today 01/04 Tomorrow patient due for Invega Sustenna 234 mg 01/05 Voices a little less; received Invega sustenna 234mg 01/06 well dressed again; in groups more and a little more outward EKG obtained and Qtc wnl 01/07 presents better (dressed) and says AH a little better, however they are more directive and she thinks they are real, though was open to reality testing 01/08 same presentation; continue tx plan 01/09 patient says voices have become a little quieter and she is overall feeling more calm. She remains significantly internally preoccupied with speech latency. Will continue to monitor. 01/10 continue tx plan; considering increasing Clozapine further given little improvement since last increase. Could instead increase Haldol however, this is increases risks of EPS 01/11 Patient up early today, before breakfast, the 1st time since this admission she has not slept until lunch time. Patient does think she is feeling better and although AH remain, she says she has been able to ignore them. She still feels far from her regular self but overall thinks things are headed in the right direction. -Patient asked for Clozaril to be increased thinking it is probably necessary. Lead Oracle Developer Ambivalent since it is already higher than her home dose and she is a little bit tremulous; but further, she seems to be doing better, attending groups, speech is less latent and she is more naturally expressive. Lead Oracle Developer will give it 1 more day and if symptoms do not further improve will increase Clozaril 01/12 Patient continues to feel that AH is better than on admission but still quite problematic; discussed medication regimen and fact that patient has bilateral hand tremor which is likely a medication side effect. Because of this she agrees with typewriter assembler's hesitation for increasing Clozaril for now; she is hoping that over the next few days things will get better but otherwise agrees to increase Clozaril further. -if no further improvement over next few days will increase Clozaril another 12.5mg -ordered labs/clozapine level -monitor tremor and signs for clozapine toxicity (none others thus far) 01/13 continue tx. 01/14 no change to clozaril dose due to pts sleepiness; continue monitor side effects; encourage fluids 01/16 spontaneously with less thought blocking. She agrees she has not as distracted as before. Given that patient has a history of catatonia and she has appeared a little catatonic, she agrees to trial of Ativan doses to see if it helps however initially dose did not seem to make much difference. 01/18 Discussed that perhaps Haldol is what is making her excessively tired since the doses increased; patient reports increased hand tremors which are intermittently visible. Discussed changing medication of Haldol 2 starting in the afternoon instead of the morning time to help mitigate daytime tiredness, to which she agrees. Although patient has side effects, she does not want Haldol lowered as she feels voices are getting a little better. -seems to take 2 steps forward and 1 step back; today more speech latency and thought blocking than previously. Continues to have significant negative symptoms and psychomotor retardation 01/19 reviewed labs and unexpectedly, clozapine/norclozapine levels are lower although dose has remained consistent; will get advice 01/20 Patient remains very tired even though the morning Haldol dose was moved to the afternoon, making it less likely that Haldol is what is been causing sedation. Discussed case with Dr. Louis and reviewed labs; he recommends trying patient on modafinil since this can be helpful for fatigue and also often used for fatigue secondary to multiple sclerosis, which may very well be a strong contributor to patient's constant tiredness. Discussed this with patient agrees with plan and will try modafinil -ordered Haldol level at next blood draw; if symptoms do not remit further will consider lowering Haldol and increasing Clozaril (trying to treat while avoid further EPS side effects) 01/21: continue current management and treatment plan. 01/22: Monitor BP and consider changing some medication administration times to avoid low BP. Encourage hydration and PO intake. continue current management and treatment plan. 01/23 modafinil somewhat helpful; wants to continue asks for 2nd afternoon dose to which typewriter assembler agrees. Discussed ECT however patient does not want it at all. She remains with psychomotor retardation, blunted affect but says auditory hallucinations remain a little less and easier to ignore; discussed fatigue as possible combination from medications and MS 01/24 Patient reports that auditory hallucinations remain lower. Still with significant psychomotor retardation and blunted affect. [place] modafinil did not work well today; will continue current dose and increase if needed. Continue discuss increasing Clozaril however typewriter assembler is concerned for worsening EPS side effects and blunted emotions. She agrees to keep regimen as is for now 01/25 try modafinil 200 mg 1 time dose however patient felt it was too much; wants to go back to the 100 mg b.i.d. -patient has history of catatonia; of note did give patient a trial of Ativan however she said it make any difference and none observed and she is already on clonazepam daily 01/26 seems to be slowly improving; seems to be benefitting from modafinil; will continue; team working with outpatient team on disposition planning 01/29/2024: No changes PLAN: CV Q 15 minute checks Continue Modafinil 100mg daily and an afternoon for daytime sedation, secondary to both antipsychotic medication and MS fatigue; will consider increasing Clonazepam 1mg qhs . Clozaril 125 mg 14:00 Continue Clozaril 325 mg q.h.s.; increased on 01/03 (used to be on 250mg at home; at [facility] increased 275) Received Haldol Decanoate 100 mg on 01/04 (last received 12/21) given every q.2 weeks Magnesium oxide 500 mg Q 17:00; for treatment for psychotic symptoms Haldol 5 mg b.i.d. p.r.n. Continue Haldol 10 mg b.i.d. for now given patient is behind on Haldol and suffering from AH; plan will be to taper and eventually DC ReceivedInvega Sustenna 234 mg on 01/05 Q30 days- last dose administered 12/06/23 Thyroid 60 mg daily Omeprazole [address] 240mg BID for MS involve guardian in treatment discharge planning with team Reason for continued inpatient stay Substantial Risk for: inability to function Time Spent With Patient Time: Total time managing care of this patient today ____ minutes.
[2024-01-29 09:56] VITALS: BP 118/74; PULSE 100
[2024-01-29] MEDS: Propranolol HCL 10 MG TABLET PO ×2 (09:56→22:46)
[2024-01-29] MEDS: A and D Ointment 56.7 GM TUBE 1 APPL TOPICAL (09:56)
[2024-01-29] MEDS: modafiniL 100 MG TABLET PO ×2 (09:56→14:38)
[2024-01-29] MEDS: Docusate Sodium 100 MG CAPSULE PO ×2 (09:57→22:31)
[2024-01-29] MEDS: Multivitamin TABLET 1 TAB PO (09:57)
[2024-01-29] MEDS: Benztropine Mesylate 1 MG TABLET PO ×2 (09:57→22:32)
[2024-01-29] MEDS: Loratadine 10 MG TABLET PO (09:57)
[2024-01-29] MEDS: Folic Acid 1 MG TABLET PO (09:57)
[2024-01-29] MEDS: cloZAPine 100 MG, cloZAPine 25 MG 125 MG PO (14:37)
[2024-01-29] MEDS: Haloperidol Lactate Oral Conc 10 MG/5 ML ORAL.CONC PO ×2 (14:37→22:30)
[2024-01-29] MEDS: clonazePAM 1 MG TABLET PO ×2 (18:16→22:32)
[2024-01-29 20:00] VITALS: BP 106/66; PULSE 112; TEMP 36.9; O2SAT 97
[2024-01-29] MEDS: Magnesium Oxide 400 MG TABLET 500 MG PO (22:24)
[2024-01-29] MEDS: Acetaminophen 325 MG TABLET 650 MG PO (22:33)
[2024-01-29 22:45] VITALS: BP 108/69; PULSE 102; TEMP 36.6
[2024-01-29 22:46] VITALS: BP 108/69; PULSE 102
[2024-01-29] MEDS: Albuterol Sulfate 90 MCG 8 GM INHALER 2 PUFF INHALE (22:47)
[2024-01-30 08:00] VITALS: BP 115/74; PULSE 96; RESP 16; TEMP 36.3; O2SAT 98
[2024-01-30] MEDS: Thyroid,Pork 30 MG TABLET 60 MG PO (10:02)
[2024-01-30] MEDS: modafiniL 100 MG TABLET PO ×2 (10:03→14:26)
[2024-01-30] MEDS: Benztropine Mesylate 1 MG TABLET PO ×2 (10:03→20:44)
[2024-01-30] MEDS: Docusate Sodium 100 MG CAPSULE PO ×2 (10:03→20:44)
[2024-01-30] MEDS: Multivitamin TABLET 1 TAB PO (10:03)
[2024-01-30] MEDS: Omeprazole 20 MG CAPSULE.DR PO (10:03)
[2024-01-30 10:04] VITALS: BP 132/86; PULSE 84
[2024-01-30] MEDS: Folic Acid 1 MG TABLET PO (10:04)
[2024-01-30] MEDS: Propranolol HCL 10 MG TABLET PO ×2 (10:04→20:44)
[2024-01-30] MEDS: Loratadine 10 MG TABLET PO (10:06)
[2024-01-30] MEDS: A and D Ointment 56.7 GM TUBE 1 APPL TOPICAL (10:16)
--- NOTE | 2024-01-30 10:55 | HO.PSYCHPN ---
Subjective Subjective Date of Service: 01/30/24 Reason For Visit: SCHIZOPHRENIA, SI Interim History: met with patient. Discussed with nursing. Tired during daytime. Overall no management issues. Accepting medications as per [facility]ell order. Patient reports things are okay. In bed. Denies concern around auditory hallucinations. Denied concerns around energy levels. No med concerns. Feeling safe Medication Compliance: Yes Side effects from medications: No Attending Groups: No Review of Systems Acute medical concerns: No Review of Systems Review of Systems unremarkable Mental Status Exam Mental Status Exam Narrative: Pt is alert and oriented; behavior is cooperative, friendly, in bed; patient is not in distress; dressed in casual attire and neatly groomed; mood is described as ok and affect congruent, a little more expressive, and less blunted; eye contact appropriate and a little more naturally expressive with less of a blank stare; Speech with thought blocking continued latency but less so and more spontaneous; still psychomotor retardation present; thought process is goal directed and seems organized; denies delusional thinking and none expressed; no SI/no HI. Denied today AH Patients insight and judgment though remains impaired but much improved and adequate Diagnostics Vital Signs (24Hr): Vital Signs - 24 hr 01/29/24 20:00 01/29/24 22:45 01/29/24 22:46 Temperature 98.4 F 97.9 F Pulse Rate 112 H 102 H 102 H Respiratory Rate Blood Pressure 106/66 108/69 108/69 Pulse Oximetry 97 Oxygen Delivery Method Room Air 01/30/24 08:00 01/30/24 10:04 Temperature 97.3 F Pulse Rate 96 84 Respiratory Rate 16 Blood Pressure 115/74 132/86 Pulse Oximetry 98 Oxygen Delivery Method Room Air BMI result Body Mass Index 31.4 Labs 01/16/24 11:32 Labs: Laboratory Results - last 48 hr 01/28/24 13:56 Absolute Neuts (auto) 3.4 Medications Medications Current Medications Acetaminophen (Acetaminophen 325 Mg Tablet) 650 mg PO Q6H PRN PRN Reason: Pain, Mild (Pain Scale 1-3) Last Admin: 01/29/24 22:33 Dose: 650 mg Al Hydroxide/Mg Hydroxide (Magnesium Hydrox/Alum Hydrox 30 Ml Oral.Susp) 30 ml PO Q6H PRN PRN Reason: Heartburn/Nausea Last Admin: 01/24/24 20:23 Dose: 30 ml Albuterol Sulfate (Albuterol Sulfate 90 Mcg 8 Gm Inhaler) 2 puff INHALE RQ4H PRN PRN Reason: Shortness of Breath Last Admin: 01/29/24 22:47 Dose: 2 puff Benztropine Mesylate (Benztropine Mesylate 1 Mg Tablet) 1 mg PO BID [facility] Last Admin: 01/30/24 10:03 Dose: 1 mg Clonazepam (Clonazepam 0.5 Mg Tablet) 0.5 mg PO BID PRN PRN Reason: Anxiety Last Admin: 01/27/24 01:46 Dose: 0.5 mg Clonazepam (Clonazepam 1 Mg Tablet) 1 mg PO BEDTIME [facility] Last Admin: 01/29/24 22:32 Dose: 1 mg Clonazepam (Clonazepam 1 Mg Tablet) 1 mg PO DAILY@1700 [facility] Last Admin: 01/29/24 18:16 Dose: 1 mg Clozapine 100 mg/ Clozapine 25 (mg) 125 mg PO 1400 [facility] Last Admin: 01/29/24 14:37 Dose: 125 mg Clozapine 300 mg/ Clozapine 50 (mg) 350 mg PO BEDTIME [facility] Last Admin: 01/29/24 22:30 Dose: 350 mg Docusate Sodium (Docusate Sodium 100 Mg Capsule) 100 mg PO BID [facility] Last Admin: 01/30/24 10:03 Dose: 100 mg Fluticasone Propionate (Fluticasone Propionate Nasal 16 Gm [place]) 1 spray NOSTRIL-B DAILY PRN PRN Reason: nasal congestion Folic Acid (Folic Acid 1 Mg Tablet) 1 mg PO DAILY [facility] Last Admin: 01/30/24 10:04 Dose: 1 mg Haloperidol Decanoate (Haloperidol Decanoate 50 Mg/Ml Vial) 100 mg IM Q14D [facility] Last Admin: 01/19/24 14:26 Dose: 100 mg Haloperidol Lactate (Haloperidol Lactate Oral Conc 10 Mg/5 Ml Oral.Conc) 5 mg PO BID PRN PRN Reason: agitation Last Admin: 12/30/23 22:13 Dose: 5 mg Haloperidol Lactate (Haloperidol Lactate Oral Conc 10 Mg/5 Ml Oral.Conc) 10 mg PO BID@1400,2100 [facility] Last Admin: 01/29/24 22:30 Dose: 10 mg Hydroxyzine HCl (Hydroxyzine Hcl 25 Mg Tablet) 25 mg PO Q6H PRN PRN Reason: Anxiety Last Admin: 01/27/24 01:46 Dose: 25 mg Loratadine (Loratadine 10 Mg Tablet) 10 mg PO DAILY [facility] Last Admin: 01/30/24 10:06 Dose: 10 mg Magnesium Hydroxide (Milk Of Magnesia 30 Ml Oral.Susp) 30 ml PO DAILY PRN PRN Reason: Constipation Last Admin: 01/25/24 11:48 Dose: 30 ml Magnesium Oxide (Magnesium Oxide 400 Mg Tablet) 500 mg PO BEDTIME [facility] Last Admin: 01/29/24 22:24 Dose: 500 mg Modafinil (Modafinil 100 Mg Tablet) 100 mg PO BID@0900,1300 [facility] Last Admin: 01/30/24 10:03 Dose: 100 mg Multivitamins/Vitamin C (Multivitamin Tablet) 1 tab PO DAILY [facility] Last Admin: 01/30/24 10:03 Dose: 1 tab Patient Own ( (Tecfidera Dr 240 Mg)) 240 mg PO BID [facility] Last Admin: 01/30/24 10:16 Dose: 240 mg Omeprazole (Omeprazole 20 Mg Capsule.Dr) 20 mg PO DAILY@0630 [facility] Last Admin: 01/30/24 10:03 Dose: 20 mg Paliperidone Palmitate (Paliperidone Palmitate 234 Mg/1.5 Ml Syringe) 234 mg IM Q30D [facility] Last Admin: 01/06/24 13:54 Dose: 234 mg Polyethylene Glycol (Polyethylene Glycol 3350 17 Gm Powd.Pack) 17 gm PO DAILY PRN PRN Reason: ongoing Constipation Last Admin: 01/25/24 13:20 Dose: 17 gm Propranolol HCl (Propranolol Hcl 10 Mg Tablet) 10 mg PO BID [facility]; Protocol Last Admin: 01/30/24 10:04 Dose: 10 mg Thyroid (Thyroid,Pork 30 Mg Tablet) 60 mg PO DAILY@0600 [facility] Last Admin: 01/30/24 10:02 Dose: 60 mg Vitamin A/Vitamin D (A And D Ointment 56.7 Gm Tube) 1 appl TOPICAL BID [facility]; Protocol Last Admin: 01/30/24 10:16 Dose: 1 appl Allergies Allergies Allergy/AdvReac Type Severity Reaction Status Date / Time Pork/Porcine Containing Allergy Unknown RASH Verified 12/28/23 14:54 Products [PORK/PORCINE CONTAINING PRODUCTS] ALPHA LIPOIC ACID Allergy Unknown Uncoded 10/17/23 02:24 PHARMACOLOGIST-3 THYROID TOXICITY Allergy Unknown Uncoded 10/17/23 02:24 Assessment & Plan Assessment & Plan (1) Schizoaffective disorder: Qualifiers: Schizoaffective disorder type: depressive Qualified Code(s): F25.1 - Schizoaffective disorder, depressive type Status: Acute Code(s): F25.9 - Schizoaffective disorder, unspecified (2) PTSD (post-traumatic stress disorder): Status: Acute Code(s): F43.10 - Post-traumatic stress disorder, unspecified (3) Multiple sclerosis: Status: Acute Code(s): G35 - Multiple sclerosis (4) Mild persistent asthma: Status: Acute Code(s): J45.30 - Mild persistent asthma, uncomplicated Plan 38-year-old female, history of schizoaffective disorder, direct admission from [facility], where patient had presented with worsening auditory hallucinations and SI. Patient is resident at [facility] for around 10 years. Patient was recently discharged from [facility] where she was admitted on 12/07. She has had several recent admissions to [facility] she was admitted to [facility] [place] inpatient on 10/17/2023 and then again on 11/07/2023. Pt has a [facility] and [facility] order in place, with some information available in the chart, but details around actual medications appears to be missing. Patient states that she received her Haldol Decanoate injection 6 days ago while in [facility]. patient reports today hearing voices telling her to go right to go left. Pt stares blankly at times; appears to be internally preoccupied. She is difficult to engage in interview; she appears anxious. denies SI or HI This expert medical writer spoke to Griselda NAQVI, patient's guardian: Her concerns are to try to help Anajli get back to baseline she had 2 years stability while at the [facility]. She reports that there have been problems with medication, getting the correct medication on time due to a number of factors difficulty with the rims certification, difficulty with the [facility] not having the correct equipment when her injection was done was due, and after different hospitalizations medication list at discharge was not complete and the residential home was unable to correct her medication list. Griselda wonders if her sister could be placed in a long-term care nursing facility for more consistent care. Hospital course: 12/19/23 continue tx plan, hold haldol deconoate until can verify last given dose from [facility] or [facility], encourage PO intake 12/20/23 cont tx 12/20 pt reports continued incessant AH, however they are only saying things like go straight...go left...go right and no longer saying mean, provoking things. Pt asked for higher Haldol dose saying she was supposed to have it available but it was only started yesterday. She says that until about a month ago, she was doing quite well, but then her medications got changed/missed and since then she's decompensated with AH. She's not sure why her medications were changed. To her recollection she recieved Haldol Dec when she was at [facility] about a week ago. -Pt gave permission to call sister/HCP and gave Griselda's phone number. 12/21 Patient continues to report auditory hallucinations however they are still just giving her directions to follow., go left, go right.. Which she says is an improvement and they are no longer saying nasty things. Patient remains convinced that she received Haldol Decanoate at [facility]; however she accepts the [facility] providers report to this expert medical writer that she did not receive it and agrees to get a now. Collateral: 1.Document Improvement Specialist discussed case with patient's sister Griselda: pt doing well on regimen (clozapine, invega sustenna, Haldol Dec +prn) until this past august when she got dx with MS and was hospitalized during which time Invega held and that and other psych meds accidentally not restarted (or delayed...). AH returned and since then, patients sister has been trying to get proper med regimen restarted (at one pt there was problem with clozapine rems). Reviewed list of meds and will change accordingly (increasing mag-oxide to 500mg which is her outpt dose and helped reduce need for clozapine) 2.Document Improvement Specialist [facility] that [facility] was NOT given Haldol Dec or any other long acting med while there. She did increase her Clozapine to 175mg at 2pm and 275mg at 5pm. 12/22 remains with troubling AH, negative symptoms; continue treatment plan 12/26 pt reports that AH remain the same, no less intensity. However, but is much brighter, smiling at times, says she feels ok and has been out of her room attending groups...She agrees that this behavior may signify improvement at least in her mood, if not her ability to ignore voices. -continue current tx regimen -will consider increasing clozapine 12/27 more thought blocking today; AH remain quite debilitating and patient did not attend any groups today, unable to concentrate on very much due to internal preoccupation. Agrees to go up on Clozaril for now -patient reviewed her allergy list and says she has not allergic to trazodone nor she allergic to alpha lipoic acid, PHARMACOLOGIST 3 thyroid; also that pork allergy does not cross over to medications. -patient is a candidate for ECT if medication management does not resolve issue as she has refractory psychotic illness and negative symptoms 12/28 1st time patient said voices are little better, talking a little less; continue current treatment plan 12/29 mild improvements, patient showered, AH remains a little less talkative overall but still quite problematic, evidenced by her continued isolation, significant psychomotor retardation, speech latency; discussed speech latency and patient said she is just very distracted by the voices. Discussed medications and she agreed to go up on Clozaril. 12/30 Patient feeling extra tired this morning which she agrees is likely from last night's increased Clozaril. Not much has changed, voices remain quite problematic though less over the past couple days. She agrees to continue at this current new dose and see how things go. Will get labs 01/03 voices got a little worse this afternoon, telling her to keep the door open, which is reminiscent of AH prior to admission that proved controlling and hard for her to dismiss. Discussed case with her sister Griselda who is also healthcare proxy and present on the unit, as well as patient; discussed risks/side effects of medication regimen and all agreed to go up on Clozaril for now -though she has improved some, she is far from baseline, remains impaired and vulnerable to quickly decompensated further and taking direction from AH; possibly because LA eyes are coming due 01/04 AH has intensified somewhat. Patient is coming due for long-acting injectables which may be contributing to recently worsening AH. Patient due for Haldol Decanoate 100 mg which she received today 01/04 Tomorrow patient due for Invega Sustenna 234 mg 01/04 AH has intensified somewhat. Patient is coming due for long-acting injectables which may be contributing to recently worsening AH. Patient due for Haldol Decanoate 100 mg which she received today 01/04 Tomorrow patient due for Invega Sustenna 234 mg 01/05 Voices a little less; received Invega sustenna 234mg 01/06 well dressed again; in groups more and a little more outward EKG obtained and Qtc wnl 01/07 presents better (dressed) and says AH a little better, however they are more directive and she thinks they are real, though was open to reality testing 01/08 same presentation; continue tx plan 01/09 patient says voices have become a little quieter and she is overall feeling more calm. She remains significantly internally preoccupied with speech latency. Will continue to monitor. 01/10 continue tx plan; considering increasing Clozapine further given little improvement since last increase. Could instead increase Haldol however, this is increases risks of EPS 01/11 Patient up early today, before breakfast, the 1st time since this admission she has not slept until lunch time. Patient does think she is feeling better and although AH remain, she says she has been able to ignore them. She still feels far from her regular self but overall thinks things are headed in the right direction. -Patient asked for Clozaril to be increased thinking it is probably necessary. Document Improvement Specialist Ambivalent since it is already higher than her home dose and she is a little bit tremulous; but further, she seems to be doing better, attending groups, speech is less latent and she is more naturally expressive. Document Improvement Specialist will give it 1 more day and if symptoms do not further improve will increase Clozaril 01/12 Patient continues to feel that AH is better than on admission but still quite problematic; discussed medication regimen and fact that patient has bilateral hand tremor which is likely a medication side effect. Because of this she agrees with expert medical writer's hesitation for increasing Clozaril for now; she is hoping that over the next few days things will get better but otherwise agrees to increase Clozaril further. -if no further improvement over next few days will increase Clozaril another 12.5mg -ordered labs/clozapine level -monitor tremor and signs for clozapine toxicity (none others thus far) 01/13 continue tx. 01/14 no change to clozaril dose due to pts sleepiness; continue monitor side effects; encourage fluids 01/16 spontaneously with less thought blocking. She agrees she has not as distracted as before. Given that patient has a history of catatonia and she has appeared a little catatonic, she agrees to trial of Ativan doses to see if it helps however initially dose did not seem to make much difference. 01/18 Discussed that perhaps Haldol is what is making her excessively tired since the doses increased; patient reports increased hand tremors which are intermittently visible. Discussed changing medication of Haldol 2 starting in the afternoon instead of the morning time to help mitigate daytime tiredness, to which she agrees. Although patient has side effects, she does not want Haldol lowered as she feels voices are getting a little better. -seems to take 2 steps forward and 1 step back; today more speech latency and thought blocking than previously. Continues to have significant negative symptoms and psychomotor retardation 01/19 reviewed labs and unexpectedly, clozapine/norclozapine levels are lower although dose has remained consistent; will get advice 01/20 Patient remains very tired even though the morning Haldol dose was moved to the afternoon, making it less likely that Haldol is what is been causing sedation. Discussed case with Dr. Louis and reviewed labs; he recommends trying patient on modafinil since this can be helpful for fatigue and also often used for fatigue secondary to multiple sclerosis, which may very well be a strong contributor to patient's constant tiredness. Discussed this with patient agrees with plan and will try modafinil -ordered Haldol level at next blood draw; if symptoms do not remit further will consider lowering Haldol and increasing Clozaril (trying to treat while avoid further EPS side effects) 01/21: continue current management and treatment plan. 01/22: Monitor BP and consider changing some medication administration times to avoid low BP. Encourage hydration and PO intake. continue current management and treatment plan. 01/23 modafinil somewhat helpful; wants to continue asks for 2nd afternoon dose to which expert medical writer agrees. Discussed ECT however patient does not want it at all. She remains with psychomotor retardation, blunted affect but says auditory hallucinations remain a little less and easier to ignore; discussed fatigue as possible combination from medications and MS 01/24 Patient reports that auditory hallucinations remain lower. Still with significant psychomotor retardation and blunted affect. [place] modafinil did not work well today; will continue current dose and increase if needed. Continue discuss increasing Clozaril however expert medical writer is concerned for worsening EPS side effects and blunted emotions. She agrees to keep regimen as is for now 01/25 try modafinil 200 mg 1 time dose however patient felt it was too much; wants to go back to the 100 mg b.i.d. -patient has history of catatonia; of note did give patient a trial of Ativan however she said it make any difference and none observed and she is already on clonazepam daily 01/26 seems to be slowly improving; seems to be benefitting from modafinil; will continue; team working with outpatient team on disposition planning 01/30/2024: No changes PLAN: CV Q 15 minute checks Continue Modafinil 100mg daily and an afternoon for daytime sedation, secondary to both antipsychotic medication and MS fatigue; will consider increasing Clonazepam 1mg qhs . Clozaril 125 mg 14:00 Continue Clozaril 325 mg q.h.s.; increased on 01/03 (used to be on 250mg at home; at [facility] increased 275) Received Haldol Decanoate 100 mg on 01/04 (last received 12/21) given every q.2 weeks Magnesium oxide 500 mg Q 17:00; for treatment for psychotic symptoms Haldol 5 mg b.i.d. p.r.n. Continue Haldol 10 mg b.i.d. for now given patient is behind on Haldol and suffering from AH; plan will be to taper and eventually DC ReceivedInvega Sustenna 234 mg on 01/05 Q30 days- last dose administered 12/06/23 Thyroid 60 mg daily Omeprazole [address] 240mg BID for MS involve guardian in treatment discharge planning with team Reason for continued inpatient stay Substantial Risk for: inability to function Time Spent With Patient Time: Total time managing care of this patient today ____ minutes.
[2024-01-30] MEDS: Haloperidol Lactate Oral Conc 10 MG/5 ML ORAL.CONC PO ×2 (14:25→20:43)
[2024-01-30] MEDS: cloZAPine 100 MG, cloZAPine 25 MG 125 MG PO (14:25)
[2024-01-30] MEDS: clonazePAM 1 MG TABLET PO ×2 (18:09→20:44)
[2024-01-30] MEDS: Magnesium Oxide 400 MG TABLET 500 MG PO (20:44)
[2024-01-30] MEDS: Albuterol Sulfate 90 MCG 8 GM INHALER 2 PUFF INHALE (20:50)
[2024-01-31 07:59] VITALS: BP 119/80; PULSE 90; TEMP 36.3; O2SAT 95
[2024-01-31] MEDS: Docusate Sodium 100 MG CAPSULE PO (08:24)
[2024-01-31] MEDS: Multivitamin TABLET 1 TAB PO (08:25)
[2024-01-31] MEDS: Propranolol HCL 10 MG TABLET PO (08:25)
[2024-01-31] MEDS: Thyroid,Pork 30 MG TABLET 60 MG PO (08:25)
[2024-01-31] MEDS: Benztropine Mesylate 1 MG TABLET PO (08:25)
[2024-01-31] MEDS: Folic Acid 1 MG TABLET PO (08:25)
[2024-01-31] MEDS: Omeprazole 20 MG CAPSULE.DR PO (08:25)
[2024-01-31] MEDS: Loratadine 10 MG TABLET PO (08:25)
[2024-01-31] MEDS: modafiniL 100 MG TABLET PO ×2 (08:26→12:28)
--- NOTE | 2024-01-31 09:12 | P.DS_ITS ---
DS: Providers Provider Date of Service: 01/31/24 Date of admission: 12/17/23 14:26 Date of discharge: 01/31/24 Primary care physician: Unknown Physician Admitting clinician: Radha Donato Consults: 12/17/23 18:20 Consult to Hospitalist Routine Comment: Consulting Provider: Hospitalist Reason For Exam: transfer pt Attending physician on discharge: Jose Miguel Kerns DS: Diagnosis Discharge Diagnosis (1) Schizoaffective disorder: Status: Acute (2) PTSD (post-traumatic stress disorder): Status: Acute (3) Multiple sclerosis: Status: Acute (4) Mild persistent asthma: Status: Acute DS: Medications Discharge Medications Home Medications: Home Medications ?Medication ?Instructions ?Recorded ?Confirmed clozapine 100 mg tablet 125 mg PO DAILY@1400 12/17/23 12/17/23 clozapine 200 mg tablet 275 mg PO BEDTIME 12/17/23 12/17/23 dimethyl fumarate 240 mg 240 mg PO BID 12/17/23 12/17/23 capsule,delayed release (Tecfidera) Previous Rx's ?Medication ?Instructions ?Recorded benztropine 1 mg tablet 1 mg PO BID #60 tabs 12/08/23 clonazepam 0.5 mg tablet 0.5 mg PO DAILY@1700 PRN anxiety 12/08/23 #30 tabs docusate sodium 100 mg capsule 100 mg PO BID #60 caps 12/08/23 haloperidol decanoate 100 mg/mL 100 mg IM Q4W #1 mL 12/08/23 intramuscular solution magnesium oxide 400 mg (241.3 mg 400 mg PO BEDTIME #30 tabs 12/08/23 magnesium) tablet omeprazole 20 mg capsule,delayed 20 mg PO DAILY #30 caps 12/08/23 release propranolol 10 mg tablet 10 mg PO BID #60 tabs 12/08/23 thyroid (pork) 30 mg tablet (STEAM TABLE ASSOCIATE 60 mg (2 x 30 mg) PO DAILY #60 tabs 12/08/23 Thyroid) Mental Status Exam Mental Status Exam Narrative: Pt is alert and oriented; behavior is cooperative, friendly, in bed; patient is not in distress; dressed in casual attire and neatly groomed; mood is described as ok and affect congruent, a little more expressive, and less blunted; eye contact appropriate and a little more naturally expressive with less of a blank stare; Speech with thought blocking continued latency but less so and more spontaneous; still psychomotor retardation present; thought process is goal directed and seems organized; denies delusional thinking and none expressed; no SI/no HI. Denied today AH Patients insight and judgment though remains impaired but much improved and adequate Data Data Completed and Pending Completed studies during hospitalization [Text1]: 01/28/24 13:56 Absolute Neuts (auto) 3.4 Haloperidol Pending DS: Summary Hospital Course Hospital Course: 38-year-old female, history of schizoaffective disorder, direct admission from [facility], where patient had presented with worsening auditory hallucinations and SI. Patient is resident at [facility] for around 10 years. Patient was recently discharged from [facility] where she was admitted on 12/07. She has had several recent admissions to [facility] she was admitted to [facility] inpatient on 10/17/2023 and then again on 11/07/2023. Pt has a [facility] and [facility] order in place, with some information available in the chart, but details around actual medications appears to be missing. Patient states that she received her Haldol Decanoate injection 6 days ago while in [facility]. patient reports today hearing voices telling her to go right to go left. Pt stares blankly at times; appears to be internally preoccupied. She is difficult to engage in interview; she appears anxious. denies SI or HI This card writer hand spoke to Griselda DONYA, patient's guardian: Her concerns are to try to help Anjali get back to baseline she had 2 years stability while at the [facility]. She reports that there have been problems with medication, getting the correct medication on time due to a number of factors difficulty with the rims certification, difficulty with the [facility] not having the correct equipment when her injection was done was due, and after different hospitalizations medication list at discharge was not complete and the residential home was unable to correct her medication list. Griselda wonders if her sister could be placed in a long-term care nursing facility for more consistent care. Hospital course: 12/19/23 continue tx plan, hold haldol deconoate until can verify last given dose from [facility] or [facility], encourage PO intake 12/20/23 cont tx 12/20 pt reports continued incessant AH, however they are only saying things like go straight...go left...go right and no longer saying mean, provoking things. Pt asked for higher Haldol dose saying she was supposed to have it available but it was only started yesterday. She says that until about a month ago, she was doing quite well, but then her medications got changed/missed and since then she's decompensated with AH. She's not sure why her medications were changed. To her recollection she recieved Haldol Dec when she was at [facility] about a week ago. -Pt gave permission to call sister/HCP and gave Griselda's phone number. 12/21 Patient continues to report auditory hallucinations however they are still just giving her directions to follow., go left, go right.. Which she says is an improvement and they are no longer saying nasty things. Patient remains convinced that she received Haldol Decanoate at [facility]; however she accepts the [facility] providers report to this card writer hand that she did not receive it and agrees to get a now. Collateral: 1.Scarrer discussed case with patient's sister Griselda: pt doing well on regimen (clozapine, invega sustenna, Haldol Dec +prn) until this past august when she got dx with MS and was hospitalized during which time Invega held and that and other psych meds accidentally not restarted (or delayed...). AH returned and since then, patients sister has been trying to get proper med regimen restarted (at one pt there was problem with clozapine rems). Reviewed list of meds and will change accordingly (increasing mag-oxide to 500mg which is her outpt dose and helped reduce need for clozapine) 2.Scarrer discussed [facility] who reports that pt was NOT given Haldol Dec or any other long acting med while there. She did increase her Clozapine to 175mg at 2pm and 275mg at 5pm. 12/22 remains with troubling AH, negative symptoms; continue treatment plan 12/26 pt reports that AH remain the same, no less intensity. However, but is much brighter, smiling at times, says she feels ok and has been out of her room attending groups...She agrees that this behavior may signify improvement at least in her mood, if not her ability to ignore voices. -continue current tx regimen -will consider increasing clozapine 12/27 more thought blocking today; AH remain quite debilitating and patient did not attend any groups today, unable to concentrate on very much due to internal preoccupation. Agrees to go up on Clozaril for now -patient reviewed her allergy list and says she has not allergic to trazodone nor she allergic to alpha lipoic acid, STEAM TABLE ASSOCIATE 3 thyroid; also that pork allergy does not cross over to medications. -patient is a candidate for ECT if medication management does not resolve issue as she has refractory psychotic illness and negative symptoms 12/28 1st time patient said voices are little better, talking a little less; continue current treatment plan 12/29 mild improvements, patient showered, AH remains a little less talkative overall but still quite problematic, evidenced by her continued isolation, significant psychomotor retardation, speech latency; discussed speech latency and patient said she is just very distracted by the voices. Discussed medications and she agreed to go up on Clozaril. 12/30 Patient feeling extra tired this morning which she agrees is likely from last night's increased Clozaril. Not much has changed, voices remain quite problematic though less over the past couple days. She agrees to continue at this current new dose and see how things go. Will get labs 01/03 voices got a little worse this afternoon, telling her to keep the door ope n, which is reminiscent of AH prior to admission that proved controlling and hard for her to dismiss. Discussed case with her sister Griselda who is also healthcare proxy and present on the unit, as well as patient; discussed risks/side effects of medication regimen and all agreed to go up on Clozaril for now -though she has improved some, she is far from baseline, remains impaired and vulnerable to quickly decompensated further and taking direction from AH; possibly because LA eyes are coming due 01/04 AH has intensified somewhat. Patient is coming due for long-acting injectables which may be contributing to recently worsening AH. Patient due for Haldol Decanoate 100 mg which she received today 01/04 Tomorrow patient due for Invega Sustenna 234 mg 01/04 AH has intensified somewhat. Patient is coming due for long-acting injectables which may be contributing to recently worsening AH. Patient due for Haldol Decanoate 100 mg which she received today 01/04 Tomorrow patient due for Invega Sustenna 234 mg 01/05 Voices a little less; received Invega sustenna 234mg 01/06 well dressed again; in groups more and a little more outward EKG obtained and Qtc wnl 01/07 presents better (dressed) and says AH a little better, however they are more directive and she thinks they are real, though was open to reality testing 01/08 same presentation; continue tx plan 01/09 patient says voices have become a little quieter and she is overall feeling more calm. She remains significantly internally preoccupied with speech latency. Will continue to monitor. 01/10 continue tx plan; considering increasing Clozapine further given little improvement since last increase. Could instead increase Haldol however, this is increases risks of EPS 01/11 Patient up early today, before breakfast, the 1st time since this admission she has not slept until lunch time. Patient does think she is feeling better and although AH remain, she says she has been able to ignore them. She still feels far from her regular self but overall thinks things are headed in the right direction. -Patient asked for Clozaril to be increased thinking it is probably necessary. Scarrer Ambivalent since it is already higher than her home dose and she is a little bit tremulous; but further, she seems to be doing better, attending groups, speech is less latent and she is more naturally expressive. Scarrer will give it 1 more day and if symptoms do not further improve will increase Clozaril 01/12 Patient continues to feel that AH is better than on admission but still quite problematic; discussed medication regimen and fact that patient has bilateral hand tremor which is likely a medication side effect. Because of this she agrees with card writer hand's hesitation for increasing Clozaril for now; she is hoping that over the next few days things will get better but otherwise agrees to increase Clozaril further. -if no further improvement over next few days will increase Clozaril another 12.5mg -ordered labs/clozapine level -monitor tremor and signs for clozapine toxicity (none others thus far) 01/13 continue tx. 01/14 no change to clozaril dose due to pts sleepiness; continue monitor side effects; encourage fluids 01/16 spontaneously with less thought blocking. She agrees she has not as distracted as before. Given that patient has a history of catatonia and she has appeared a little catatonic, she agrees to trial of Ativan doses to see if it helps however initially dose did not seem to make much difference. 01/18 Discussed that perhaps Haldol is what is making her excessively tired since the doses increased; patient reports increased hand tremors which are intermittently visible. Discussed changing medication of Haldol 2 starting in the afternoon instead of the morning time to help mitigate daytime tiredness, to which she agrees. Although patient has side effects, she does not want Haldol lowered as she feels voices are getting a little better. -seems to take 2 steps forward and 1 step back; today more speech latency and thought blocking than previously. Continues to have significant negative symptoms and psychomotor retardation 01/19 reviewed labs and unexpectedly, clozapine/norclozapine levels are lower although dose has remained consistent; will get advice 01/20 Patient remains very tired even though the morning Haldol dose was moved to the afternoon, making it less likely that Haldol is what is been causing sedation. Discussed case with Dr. Louis and reviewed labs; he recommends trying patient on modafinil since this can be helpful for fatigue and also often used for fatigue secondary to multiple sclerosis, which may very well be a strong contributor to patient's constant tiredness. Discussed this with patient agrees with plan and will try modafinil -ordered Haldol level at next blood draw; if symptoms do not remit further will consider lowering Haldol and increasing Clozaril (trying to treat while avoid further EPS side effects) 01/21: continue current management and treatment plan. 01/22: Monitor BP and consider changing some medication administration times to avoid low BP. Encourage hydration and PO intake. continue current management and treatment plan. 01/23 modafinil somewhat helpful; wants to continue asks for 2nd afternoon dose to which card writer hand agrees. Discussed ECT however patient does not want it at all. She remains with psychomotor retardation, blunted affect but says auditory hallucinations remain a little less and easier to ignore; discussed fatigue as possible combination from medications and MS 01/24 Patient reports that auditory hallucinations remain lower. Still with significant psychomotor retardation and blunted affect. [place] modafinil did not work well today; will continue current dose and increase if needed. Continue discuss increasing Clozaril however card writer hand is concerned for worsening EPS side effects and blunted emotions. She agrees to keep regimen as is for now 01/25 try modafinil 200 mg 1 time dose however patient felt it was too much; wants to go back to the 100 mg b.i.d. -patient has history of catatonia; of note did give patient a trial of Ativan however she said it make any difference and none observed and she is already on clonazepam daily 01/26 seems to be slowly improving; seems to be benefitting from modafinil; will continue; team working with outpatient team on disposition planning 01/27 overall patient is doing better on admission. She remains with blunted affect, speech latency and psychomotor retardation however each is reduced and patient feels that she is able to return home. AH remain but much more subdued and easier to ignore. Patient feels modafinil has been helping. She feels ready to return home. She is anxious however about requirements at [place] [facility]. Scarrer agrees that she will be able to participate with some of the activities and responsibilities but in a limited amount and both agreed that attending to day program activities twice a week is sufficient for now.. Patient is eating well, attending to ADLs, intermittently attending groups and overall feeling much better. His remained in good behavioral and impulse control and appropriate with peers and staff. Patient is not in imminent risk for harm to self or others and is appropriate to return to the community for treatment. On day of discharge discussed with patient that modafinil requires a prior authorization; patient anxious that she will not have it card writer hand way when she gets to [place] [facility], finding it helpful however she agreed for card writer hand to pursue prior authorization with her insurance company -patient also said she used to be on Ritalin in the past which she thought might be a 2nd option, however card writer hand did not want to start this medication, especially on the day of discharge, as she is struggling with psychotic symptoms which stimulant medication can exacerbate Medications: -Patient last received Haldol Decanoate 100 mg on 01/18 and is due for next IM on 02/01. She has also been taking overlapping p.o. Haldol for 5 weeks (since 12/21); will continue her for another month however she may be able to go to a lower dose after a few more weeks and/or eventually discontinue p.o. Haldol. -Patient last received Invega Sustenna 234 mg on 01/05; next dose due 02/02 -magnesium oxide was increased to 500 mg q.h.s. Regarding activity at the [place] [facility]: While patient is doing better than on admission she is not at baseline. At this time she needs set limitations on expectations/requirements for [place] [facility] activities/responsibilities which can be gradually increased at her outpatient psychiatrist's determination. Patient has refractory schizophrenia; she is on 3 antipsychotics at high doses which are likely contributing to patients energy level, struggles with feeling sedated, slower movements and emotional blunting. Hopefully as patient continues to progress her medication doses can be lowered back to former levels. She also been newly diagnosed with Muscular Sclerosis which can significantly contribute to patient's energy level and struggles with feeling sedated. She is also not back to her baseline. Currently it is difficult to determine what patient will be capable of and unclear when when she will be capable of more. At this time card writer hand finds it reasonable for patient to attend her day program 2 times a week. This limitation should remain for the foreseeable future. Patient can do more if she wants to. However, Custodial expectations should only be increased incrementally and at the discretion of her outpatient psychiatric provider. Time spent discussing smoking cessation with patient: 3 to 10 minutes Status at Discharge Functional status at discharge: independent ambulation Overall status at discharge: patient is progressing back to baseline Time Spent with Patient Time attestation: Total time managing care of this patient today _45___ minutes. Time spent: Greater than 30 minutes Discharge Plan Discharge Anticipated Discharge Date/Time: 01/31/24 12:30 Patient Disposition: Home, Self-Care Discharge Diagnosis: Schizoaffective disorder, depressed type Referrals: [facility] [Other] - 1 Week ( Services to restart. ) [facility] Psychiatry yossi Pandya [Other] - 02/17/24 11:00 am [facility] Therapy with Caroline Toribio [Other] - 02/09/24 11:00 am ([facility] was not able to get a response from Caroline for the discharge appt; Caroline or [facility] will call with appt. ) [facility] Jordy Rasmussen [Provider Group] - 1 Week Discharge Medications: New loratadine 10 mg Tablet 10 mg PO DAILY 30 Days Qty: 30 1RF albuterol sulfate [Ventolin HFA] 90 mcg/actuation Hfa Aerosol Inhaler 2 puff inhalation RQ4H PRN (Reason: Shortness Of Breath) 30 Days Qty: 8.5 1RF acetaminophen 325 mg Tablet 650 mg PO Q6H PRN (Reason: Pain, Mild (Pain Scale 1-3)) Qty: 0 0RF clonazepam 0.5 mg Tablet 0.5 mg PO BID PRN (Reason: Anxiety) 30 Days Qty: 60 1RF clonazepam 1 mg Tablet See Rx Instructions .ROUTE .COMPLEX Qty: 60 1RF Rx Instructions: take 1 tab at 5pm; may take additional tab at bedtime as needed for anxiety or insomnia clozapine 100 mg tablet 350 mg PO BEDTIME 30 Days Qty: 105 1RF haloperidol lactate 2 mg/mL Concentrate 10 mg PO BID@1400,2100 30 Days Qty: 300 0RF Invega Sustenna 234 mg/1.5 mL Syringe 234 mg IM Q28D 28 Days Qty: 1.5 1RF Rx Instructions: last received 01/06/24; due by 02/03/24 fluticasone propionate 50 mcg/actuation [place],Suspension 1 spray intranasal DAILY PRN (Reason: nasal congestion) 30 Days Qty: 16 1RF MAG-AL 200-200 mg/5 mL Suspension 30 ml PO Q6H PRN (Reason: Heartburn/Nausea) Qty: 0 0RF magnesium hydroxide [Milk of Magnesia] 400 mg/5 mL Suspension 30 ml PO DAILY PRN (Reason: Constipation) Qty: 0 0RF multivitamin [Daily-Pratik] Tablet 1 tab PO DAILY 30 Days Qty: 30 0RF folic acid 1 mg Tablet 1 mg PO DAILY 30 Days Qty: 30 0RF Dimethyl [place] 240 mg PO BID Qty: 0 0RF vits A and D-white pet-lanolin [A and D (lanolin-petrolatum)] Ointment 1 appl topical BID PRN (Reason: skin irritation) 30 Days Qty: 15 0RF Protocol: Apply to: Apply to: affected areas Rx Instructions: apply to affected area armodafinil 150 mg tablet 75 mg PO QAM 30 Days Qty: 15 0RF Continued dimethyl fumarate [Tecfidera] 240 mg Capsule,Delayed Release(Dr/Ec) 240 mg PO BID propranolol 10 mg Tablet 10 mg PO BID 30 Days Qty: 60 1RF Protocol: Hold for SBP/HR < HOLD for SBP < : 90 HOLD for HR < : 60 benztropine 1 mg Tablet 1 mg PO BID 30 Days Qty: 60 1RF docusate sodium 100 mg Capsule 100 mg PO BID 30 Days Qty: 60 1RF omeprazole 20 mg Capsule,Delayed Release(Dr/Ec) 20 mg PO DAILY 30 Days Qty: 30 1RF thyroid (pork) [STEAM TABLE ASSOCIATE Thyroid] 30 mg Tablet 60 mg PO DAILY 30 Days Qty: 60 1RF Changed clozapine 50 mg tablet 125 mg PO DAILY@1400 30 Days Qty: 75 1RF haloperidol decanoate 100 mg/mL solution 100 mg IM Q2W 14 Days Qty: 1 3RF Rx Instructions: last received 01/19/24; due by 02/02/24 magnesium oxide 500 mg magnesium tablet 500 mg PO BEDTIME 30 Days Qty: 30 0RF No Action clonazepam 0.5 mg Tablet 0.5 mg PO DAILY@1700 PRN (Reason: anxiety) Qty: 30 0RF Patient Comments: last filled 12/08/23 clozapine 200 mg tablet 275 mg PO BEDTIME Patient Comments: last filled 10/31/23 last dose verified with Stephanie at [facility] no Clozaril given there today Discharge Orders: Discharge Order (Routine); Ordered 01/31/24 Ordered By: Jose Miguel Kerns Diet: Regular diet Activity on Discharge: As tolerated Stand Alone Forms: Patient Portal Discharge page, Community Support Print Language: Citizen Of [place] Care Plan Goals: Maintain mood and safe behaviors Take medications as prescribed Practice coping skills Continue with outpatient providers and reach out to them as needed Health Concerns: Mood stability and behaviors Multiple sclerosis Plan of Treatment: Follow up with your PCP, psychiatric provider and other outpatient providers regarding above concerns Take medications as prescribed Patient may attend her day program 2 times a week. This limitation should remain for the foreseeable future. Patient can do more if she wants to. However, Custodial expectations should only be increased incrementally and at the discretion of her outpatient psychiatric provider. Assessment: Risk assessment at time of discharge:? Patient was interviewed prior to discharge and found to be fully oriented and without any SI or HI. Patient has improved insight and judgment and wants to continue treatment. Patient is not in imminent risk of harm to self or others and has a safety plan that includes presenting to the closest ER or calling 911 if feeling unsafe.? Patient has been observed closely by nursing and unit staff throughout admission; patient has not engaged in any behaviors that suggest dangerousness to self or others and has demonstrated appropriate behaviors and impulse control Discharge Date/Time: 01/31/24 13:35
[2024-02-07 07:52] LABS: Haloperidol 25 ng/mL (5-15)
== END 2024-01-31 13:35 | disposition home or self-care (01) | DRG 885 ==
PROVIDERS: Admitting Provider Clinical Nurse Specialist Psychiatric/Mental Health, Adult; Visit Provider Psychiatry & Neurology Psychiatry
DX: F25.1 Schizoaffective disorder, depressive type (principal); R45.851 Suicidal ideations; G35 Multiple sclerosis; K21.9 Gastro-esophageal reflux disease without esophagitis; F43.10 Post-traumatic stress disorder, unspecified; J45.30 Mild persistent asthma, uncomplicated; Z79.899 Other long term (current) drug therapy
CPT/HCPCS: 36415; 80048; 80061; 80076; 80159; 80173; 82140; 82565; 82607; 82746; 83036; 83735; 84439; 84443; 85048; 93005; J1631; J2426

== ENCOUNTER 2023-12-17 14:26 | Outpatient (BNV) | payer MEDICARE, MEDICAID, SELFPAY | END 2024-01-07 14:34 | PROVIDERS: Admitting Provider Clinical Nurse Specialist Psychiatric/Mental Health, Adult; Visit Provider Internal Medicine | DX: R00.0 Tachycardia, unspecified (principal); R94.31 Abnormal electrocardiogram [ECG] [EKG] | CPT/HCPCS: 93010 ==

== ENCOUNTER 2023-12-17 14:26 | Outpatient (BNV) | payer MEDICARE, MEDICAID, SELFPAY | END 2023-12-22 13:26 | PROVIDERS: Admitting Provider Clinical Nurse Specialist Psychiatric/Mental Health, Adult; Visit Provider Internal Medicine | DX: I45.81 Long QT syndrome (principal) | CPT/HCPCS: 93010 ==

== ENCOUNTER → 2023-12-17 14:26 | Outpatient (BNV) | payer MEDICARE, MEDICAID, SELFPAY | PROVIDERS: Admitting Provider Clinical Nurse Specialist Psychiatric/Mental Health, Adult; Visit Provider Clinical Nurse Specialist Psychiatric/Mental Health | DX: F25.1 Schizoaffective disorder, depressive type (principal); F43.11 Post-traumatic stress disorder, acute; G35 Multiple sclerosis; J45.30 Mild persistent asthma, uncomplicated | CPT/HCPCS: 90792; 99231; 99232; 99239; 99499 ==

== ENCOUNTER → 2023-12-17 14:26 | Outpatient (BNV) | payer MEDICARE, MEDICAID, SELFPAY | PROVIDERS: Admitting Provider Clinical Nurse Specialist Psychiatric/Mental Health, Adult; Visit Provider Student in an Organized Health Care Education/Training Program | DX: Z00.8 Encounter for other general examination (principal) | CPT/HCPCS: 99499 ==

== ENCOUNTER 2024-05-31 13:58 | Outpatient (REF) | payer MEDICARE, MEDICAID, SELFPAY ==
[2024-05-31 14:39] LABS: Hematocrit 40.6 % (37.0-47.0); Hemoglobin 14.3 g/dl (12.0-16.0); Mean Corpuscular HGB Conc 35.2 g/dl (31.0-35.0); Mean Corpuscular Hemoglobin 28.8 pg (27.0-33.0); Mean Corpuscular Volume 81.7 fL (80.0-98.0); Mean Platelet Volume 9.6 fL (9.4-12.3); Platelet Count 235 X10*3/uL (160-400); Red Blood Count 4.97 X10*6/uL (4.20-5.50); Red Cell Distribution Width 12.9 % (11.0-16.0); White Blood Count 5.5 X10*3/uL (4.8-10.8)
[2024-05-31 15:09] LABS: Alanine Aminotransferase 33 U/L (0-31); Albumin Level 4.9 g/dL (3.5-5.0); Alkaline Phosphatase 97 U/L (39-117); Aspartate Amino Transferase 28 U/L (5-31); Bilirubin Direct 0.1 mg/dL (0.0-0.5); Bilirubin Total 0.3 mg/dL (0.0-1.0); Total Protein 7.2 g/dL (6.5-8.0)
[2024-06-06 04:14] LABS: JCV Antibody POSITIVE; JCV Index Value 2.77
== END 2024-05-31 13:59 | disposition home or self-care (01) ==
LOC: HO.LAB 13:58
PROVIDERS: Visit Provider Psychiatry & Neurology Neurology
DX: G35 Multiple sclerosis (principal)
CPT/HCPCS: 36415; 80076; 85027; 86711

== ENCOUNTER 2024-12-25 14:04 | Outpatient (REF) | payer MEDICARE, MEDICAID, SELFPAY ==
[2024-12-25 14:17] LABS: MANUAL DIFF FLAG NO
[2024-12-25 14:55] LABS: Basophils Percent Auto 0.2 % (0-2); Hematocrit 41.1 % (37.0-47.0); Hemoglobin 14.1 g/dl (12.0-16.0); Imm Gran Abs Auto 0.01 X10*3/uL (0.00-0.03); Imm Gran Pct Auto 0.2 % (0.0-0.4); Lymphocytes Absolute Auto 0.8 X10*3/uL (1.2-4.9); Lymphocytes Percent Auto 13.4 % (20-40); Mean Corpuscular HGB Conc 34.3 g/dl (31.0-35.0); Mean Corpuscular Hemoglobin 28.5 pg (27.0-33.0); Mean Corpuscular Volume 83.2 fL (80.0-98.0); Mean Platelet Volume 9.5 fL (9.4-12.3); Monocytes Absolute Auto 0.6 X10*3/uL (0.1-1.2); Monocytes Percent Auto 9.3 % (2-11); Neutrophils Absolute Auto 4.8 x10*3/uL (2.0-8.3); Neutrophils Percent Auto 76.9 % (45-73); Platelet Count 235 X10*3/uL (160-400); Red Blood Count 4.94 X10*6/uL (4.20-5.50); Red Cell Distribution Width 12.8 % (11.0-16.0); White Blood Count 6.2 X10*3/uL (4.8-10.8)
--- OUTSIDE RECORDS SUMMARY | 2024-12-25 15:23 | XMS_ITS | Encounter Summary ---
Author Organization [facility] Address [address] [place] [address] Care Team Providers Care Production Director Name Role Phone Valery Garcia Primary Care Provider [phone] Encounter Details Date Type Department Care Team (Late st Contact Info) Description 03/31/2017 Interim Notes [address] [address] Lance Kowalski [phone] [place] [address] Social History Tobacco Use Types Packs/Day Years Used Date Smoking Tobacco: Former Cigarettes Smokeless Tobacco: Never Alcohol Use Standard Drinks/Week Comments No 0 (1 standard drink = 0.6 oz pur e alcohol) Comments No Sex and Gender Information Value Date Recorded Sex Assigned at Not on file Legal Sex Female 12:49 PM PST Gender Identity Not on file Sexual Orientation Not on file documented as of this encounter Plan of Treatment Not on file documented as of this encounter Visit Diagnoses Not on filedocumented in this encounter Additional Health Concerns Assessment Noted Time PHQ-9 Depression Total Score: 13 016 11:00 AM PDT documented as of this encounter Care Teams Production Director Relationship Specialty Start Date End Date Valery Garcia FNP [facility] [place] [address] PCP - General 09/20/18 documented as of this encounter
[2024-12-25 15:57] LABS: Alanine Aminotransferase 19 U/L (0-31); Albumin Level 4.8 g/dL (3.5-5.0); Aspartate Amino Transferase 21 U/L (5-31); Bilirubin Direct 0.1 mg/dL (0.0-0.5); Bilirubin Total 0.5 mg/dL (0.0-1.0); Total Protein 6.8 g/dL (6.5-8.0)
[2024-12-25 17:41] LABS: Alkaline Phosphatase 82 U/L (39-117)
== END 2024-12-25 14:05 | disposition home or self-care (01) ==
LOC: HO.LAB 14:04
PROVIDERS: PCP Internal Medicine; Visit Provider Psychiatry & Neurology Neurology
DX: G35 Multiple sclerosis (principal)
CPT/HCPCS: 36415; 80076; 85025

== ENCOUNTER → 2025-02-22 12:45 | Outpatient (REF) | payer MEDICARE, MEDICAID, SELFPAY ==
--- OUTSIDE RECORDS SUMMARY | 2025-02-22 12:54 | XMS_ITS | Clinical Summary ---
Author Organization [facility] Address [address] [place] [address] Phone Care Team Providers Care Aircraft Skin Burnisher Name Role Phone Marco Overton MD Primary Care Provider [phone] Allergies Active Allergy Reactions Criticality Noted Date Comments Pork/Porcine Containing Products Rash Low Medications albuterol 90 mcg/actuation inhaler Inhale 2 puffs into the lungs. 03/03/2017 Active benztropine (COGENTIN) 0.5 MG tablet Take 0.5 mg by mouth. 03/26/2016 Active cloZAPine (CLOZARIL) 100 MG tablet 12/17/2016 Active docusate sodium (COLACE) 100 MG capsule Take 100 mg by mouth. 03/26/2016 Active fluvoxaMINE (LUVOX) 50 MG tablet Take 50 mg by mouth nightly. Active topiramate (TOPAMAX) 200 MG tablet Take 200 mg by mouth 2 (two) times a day. Active cloZAPine (CLOZARIL) 25 MG tablet Take 25 mg by mouth daily. Active EX-F-weqhlveoyp eine or placebo ([id number]) 500 mg capsule Take by mouth 2 (two) times a day. Take two capsules twice daily with one capsule of minocycline/p lacebo twice daily. Active omega-3 acid ethyl esters (LOVAZA) 1 gram capsule Take 2 g by mouth 2 (two) times a day. Active thyroid, pork, 60 mg Tab Take 60 mg by mouth every morning. Active Social History Tobacco Use Types Packs/Day Years Used Date Smoking Tobacco: Never Smokeless Tobacco: Never Education Answer Date Recorded Are you interested in more education? Not on pavithra e 11/20/2022 Are you concerned about learning? Not on file 11/20/2022 No 11/20/2022 No 11/20/2022 Digital Access Answer Date Recorded No 12/21/2022 No 12/21/2022 No 12/21/2022 Reliable internet access at home? Not on file 12/21/2022 Device with a working camera? Not on file Comments Unknown Sex and Gender Information Value Date Recorded Sex Assigned at Not on file Legal Sex Female 9:52 AM EDT Gender Identity Not on file Sexual Orientation Not on file Last Filed Vital Signs Vital Sign Reading Time Taken Comments Blood Pressure 112/74 03/17/2018 1:16 PM EDT Pulse 107 03/17/2018 1:16 PM EDT Temperature - - Respiratory Rate - - Oxygen Saturation 97% 03/17/2018 1:16 PM EDT Inhaled Oxygen Concentration - - Weight 97.8 kg (215 lb 9.6 oz) 03/17/2018 1:16 P M EDT Height - - Body Mass Index - - Plan of Treatment Health Maintenance Due Date Last Done Comments ABSOLUTE NEUTROPHIL COUNT (ANC) 1983 DEPRESSION SCREENING 1995 HEPATITIS C SCREENING 09/24/2001 HIV ONE-TIME SCREENING (18-6 5 YEARS) 09/24/2001 PAP SMEAR 09/24/2004 MAMMOGRAM 2023 COVID-19 VACCINE (2023-2 5 season) 2024 Adult Td,Tdap Booster 04/15/2026 04/15/2016 , 04/21/2010 SMOKING STATUS SCREENING (On ce After 26 Yrs) Completed 03/17/2018 HEPATITIS A VACCINES Aged Out No long er eligible based on patient's age to complete this topic HIB VACCINES Aged Out No longer eligi ble based on patient's age to complete this topic MENINGOCOCCAL VACCINES (ACWY) Aged Out No longer eligible based on patient's age to complete this topic MENINGOCOCCAL VACCINES (B) Aged Out N o longer eligible based on patient's age to complete this topic PNEUMOCOCCAL VACCINES (0-49 years) Aged Out No longer eligible b ased on patient's age to complete this topic Medical Devices Not on file Insurance [place] & [place] & B [facility] MEDICARE PART A & B Advance Directives For more information, please contact: [phone] (9AM - 5PM 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 It is not the complete legal health record.[facility]
--- OUTSIDE RECORDS SUMMARY | 2025-02-22 12:54 | XMS_ITS | Encounter Summary ---
Author Organization [facility] [employer] Address [address] [place] [address] Care Team Providers Care Beach Expert Name Role Phone Cady Crawford MD Primary Care Provider Reason for Visit * Reason Onset Date Comments ED Follow-up 02/09/2025 Encounter Details Date Type Department Care Team (Late st Contact Info) Description 02/09/2025 Telephone Adult Medicine - [address] [phone] Cady Crawford MD [address] [place] [address] ED Follow-up Social History Tobacco Use Types Packs/Day Years Used Date Smoking Tobacco: Former Cigarettes Q uit: 07/26/2008 Smokeless Tobacco: Never Alcohol Use Standard Drinks/Week Comments No 0 (1 standard drink = 0.6 oz pur e alcohol) Comments No Sex and Gender Information Value Date Recorded Sex Assigned at Not on file Legal Sex Female 1:00 AM EST Gender Identity Not on file Sexual Orientation Not on file documented as of this encounter Progress Notes * Skinny Pena RN - 02/09/2025 10:10 AM EDT Please scheduled er follow up * Deandra Anton - 02/09/2025 9:53 AM EDT Hospital/ER follow up appointment needed Hospital patient was treated at: [facility] Was this only an ER visit or was the patient admitted to the hospital? ER Visit only Date of visit if ER visit only: 02/08/25 If patient was admitted what was the date of discharge? na Reason/diagnosis for visit or stay: Acute lower back pain When was the patient told to follow up? Declined to book ER follow up, just want orders for the lidocaine and ibuprofen Was visit or stay related to an injury? If yes, what was the date of injury (DOI)? No If yes, was the injury due to: Not 3rd constitution party related documented in this encounter Plan of Treatment Upcoming Encounters Date Type Department Care Team (Late st Contact Info) Description 03/12/2025 10:15 AM EDT Appointment [facility] Xray [address] [place] [address] 04/02/2025 1:30 PM EDT Office Visit Adult Medicine - [place] [address] [place] [address] Jyotsna Buckley PA [address] [place], [place] 05/30/2025 1:00 PM EST Appointment Radiology Department - [address] [phone] 06/05/2025 12:30 PM EST Office Visit Adult Medicine - [place] [address] [place] [phone] Frank Prater PA [address] [place], [place] documented as of this encounter Visit Diagnoses Not on filedocumented in this encounter Care Teams Beach Expert Relationship Specialty Start Date End Date Cady Crawford MD [address] [place] [address] PCP - General 06/10/22 documented as of this encounter
--- OUTSIDE RECORDS SUMMARY | 2025-02-22 12:54 | XMS_ITS | Encounter Summary ---
Author Organization [facility] Address [address] [place] [address] Care Team Providers Care Piping Supervisor Name Role Phone Valery Garcia Primary Care Provider [phone] Encounter Details Date Type Department Care Team (Late st Contact Info) Description 03/31/2017 Interim Notes [address] [phone] Lance Kowalski [phone] [place] [address] Social History Tobacco Use Types Packs/Day Years [...] documented as of this encounter Care Teams Piping Supervisor Relationship Specialty Start Date End Date Valery Garcia FNP [facility] [place] [address] PCP - General 09/20/18 documented as of this encounter
== END ==
LOC: HO.SL 12:45
PROVIDERS: PCP Family Medicine; Visit Provider Psychiatry & Neurology Neurology
DX: G47.19 Other hypersomnia (principal); R06.83 Snoring
CPT/HCPCS: 95806

== ENCOUNTER → 2025-02-22 21:00 | Outpatient (BNV) | payer MEDICARE, MEDICAID, SELFPAY | PROVIDERS: PCP Family Medicine; Visit Provider Internal Medicine | DX: R06.83 Snoring (principal) | CPT/HCPCS: 95806 ==